=== PATIENT | female | born 1990 | race Caucasian/White ===

== ENCOUNTER 2024-04-07 12:50 | Emergency (ER) | payer OTHER, SELFPAY ==
[2024-04-07] VITALS (12 sets, daily range): BP systolic 120–141; BP diastolic 81–82; PULSE 82–98; TEMP 36.9; O2SAT 99–100; BMI 31.6
--- NOTE | 2024-04-07 13:03 | ED_ITS ---
HPI - Chest Pain General Chief Complaint: Chest Pain Stated Complaint: CHEST PAIN SINCE TUESDAY, L ARM PAIN Time Seen by Provider: 04/07/24 12:58 History of Present Illness HPI narrative: 34-year-old female presents for chest pain. She has had this for the past 3 days. It goes into her left arm which has been continuous and the pain in the extreme left upper chest area has been intermittent. No injury or unusual activity. She states she has been under a lot of stress recently. No fever or cough. It feels like a pressure. Review of Systems ROS Narrative A ten point review of systems is negative except as noted above. PFSH PFSH Social History Little interest or pleasure in doing things: not at all Feeling down, depressed, or hopeless: not at all Exam Narrative Exam Narrative: Nurses note and vital signs reviewed and patient is not hypoxic. General: The patient appears well and in no apparent distress. Patient is resting comfortably on cart. Skin: Warm, dry, no pallor noted. There is no rash noted. Head: Normocephalic, atraumatic Eye: Normal conjunctiva, no drainage Ears, Nose, Mouth, and Throat: oral mucosa is moist. Nares patent. Cardiovascular: Regular Rate and Rhythm Respiratory: Patient is in no distress, no accessory muscle use, lungs are clear to auscultation, no wheezing, rales or rhonchi. No bruise or rash on her chest Back: non-tender GI: Soft and nontender Musculoskeletal: The patient has no evidence of calf tenderness, no pitting edema, symmetrical pulses noted bilaterally Neurological: A&O, normal speech Psychiatric: Cooperative Constitutional Vital Signs, click to edit/add: Last Vital Signs Temp 98.4 F 04/07/24 12:53 Pulse 90 04/07/24 12:53 Resp 18 04/07/24 12:53 BP 141/82 04/07/24 12:53 Pulse Ox 99 04/07/24 12:53 O2 Del Method Room Air 04/07/24 12:53 Course Vital Signs Vital signs: Vital Signs Temperature 98.4 F 04/07/24 12:53 Pulse Rate 90 04/07/24 12:53 Respiratory Rate 18 04/07/24 12:53 Blood Pressure 141/82 04/07/24 12:53 Pulse Oximetry 99 04/07/24 12:53 Oxygen Delivery Method Room Air 04/07/24 12:53 Temperature 98.4 F 04/07/24 12:53 Pulse Rate 90 04/07/24 12:53 Respiratory Rate 18 04/07/24 12:53 Blood Pressure 141/82 04/07/24 12:53 Pulse Oximetry 99 04/07/24 12:53 Oxygen Delivery Method Room Air 04/07/24 12:53 MDM - Chest Pain MDM Narrative Medical decision making narrative: Her workup is negative. I do not at this point suspect acute coronary syndrome. I have no clinical suspicion of pulmonary embolism. The possibility that this is due to stress was discussed with the patient and she is able to be discharged home. Treatment diagnosis and follow-up were discussed thoroughly. Differential Diagnosis Differential diagnosis: Likely pneumothorax, unstable angina pectoris, atypical chest pain, st elevation myocardial infarction and chest pain Lab Data Attestation: I reviewed the patient's lab results. Labs: Lab Results 04/07/24 Range/Units 13:08 WBC 10.5 (4.0-11.0) 10^3/uL RBC 4.93 (4.20-5.40) 10^6/uL Hgb 14.7 (12.0-16.0) g/dL Hct 44.4 (36.0-48.0) % MCV 90.1 (81.0-99.0) fL MCH 29.8 (26.7-34.0) pg MCHC 33.1 (29.9-35.2) g/dL RDW 11.9 (11.0-15.0) % Plt Count 313 (150-450) 10^3/uL MPV 9.1 L (9.5-13.5) fL Neut % (Auto) 74.6 (43.0-75.0) % Lymph % (Auto) 16.5 L (20.5-60.0) % [place] % (Auto) 8.0 (1.7-12.0) % Eos % (Auto) 0.2 L (0.9-7.0) % Baso % (Auto) 0.5 (0.2-2.0) % Neut # (Auto) 7.9 H (1.4-6.5) 10^3/uL Lymph # (Auto) 1.7 (1.2-3.8) 10^3/uL [place] # (Auto) 0.8 (0.3-0.8) 10^3/uL Eos # (Auto) 0.0 (0.0-0.7) 10^3/uL Baso # (Auto) 0.1 (0.0-0.1) 10^3/uL Abs Immat Gran (auto) 0.02 (0.00-0.03) 10^3/uL Imm/Tot Granulo (auto) 0.2 (0.0-0.5) % Sodium 140 (136-145) mmol/L Potassium 3.9 (3.5-5.1) mmol/L Chloride 104 (98-107) mmol/L Carbon Dioxide 24.8 (21.0-32.0) mmol/L Anion Gap 15.1 BUN 10.0 (7.0-18.0) mg/dL Creatinine 0.87 (0.55-1.02) mg/dL Est GFR ( Amer) >60 (>=60 mL/min/1.73m^2) Est GFR (Non-Af Amer) >60 (>=60 mL/min/1.73m^2) BUN/Creatinine Ratio 11.5 Glucose 99 (74-106) mg/dL Calcium 9.6 (8.5-10.1) mg/dL Troponin I High Sens <4.0 L (4.0-51.3) pg/mL Imaging Data Chest x-ray: Radiologist's impression: ITS Impressions Chest X-Ray 04/07/24 13:03 IMPRESSION: Unremarkable AP erect portable chest radiograph. Electronically authenticated by: MARCELA SHINE Date: 04/07/2024 14:12 ECG Data Attestation: I personally reviewed and interpreted this ECG as follows: (EKG on my interpretation shows normal sinus rhythm with rate of 87) Heart Score History: Slightly/Non-Suspicious ECG: Normal Age: <45 years Risk Factors: No Risk Factors Troponin: <Normal Limit Total Heart Score Recommendations & Risks:: 0 Discharge Plan Discharge Chief Complaint: Chest Pain Clinical Impression: Chest pain Patient Disposition: Home, Self-Care Time of Disposition Decision: 14:20 Condition: Good Mode of Transportation: Private Vehicle Print Language: Divehi Instructions: Chest Pain (ED) Referrals: BAKARI ESCALERA [Primary Care Provider] - 1 week
--- NOTE | 2024-04-07 13:03 | XR_ITS ---
The [address] [address] Patient Name: VINICIUS CHARLES MRN: [id number] date: 1990 Sex: F Assigned Patient Location: ER Current Patient Location: ED.MAIN Accession/Order Number: [id number] Exam Date: 04/07/2024 13:15 Report Date: 04/07/2024 14:12 At the request of: JEANNINE GARCIA Procedure: XR chest 1V EXAM: XR chest 1V HISTORY: CP COMPARISON: None. TECHNIQUE: AP erect portable chest radiograph performed. FINDINGS: The trachea is midline. The heart size is normal. The cardiomediastinal silhouette and hilar shadows are normal. There is no consolidation, pleural effusion or pulmonary vascular congestion. There is no pneumothorax and the osseous structures are unremarkable. XR/XR chest 1V IMPRESSION: Unremarkable AP erect portable chest radiograph. Electronically authenticated by: MARCELA SHINE Date: 04/07/2024 14:12
--- NOTE | 2024-04-07 13:03 | ECG_ITS ---
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
[2024-04-07 13:24] LABS: Basophils Absolute Auto 0.1 10^3/uL (0.0-0.1); Basophils Percent Auto 0.5 % (0.2-2.0); Eosinophils Percent Auto 0.2 % (0.9-7.0); Hematocrit 44.4 % (36.0-48.0); Hemoglobin 14.7 g/dL (12.0-16.0); Immature Granulocytes Abs Auto 0.02 10^3/uL (0.00-0.03); Immature Granulocytes Pct Auto 0.2 % (0.0-0.5); Lymphocytes Absolute Auto 1.7 10^3/uL (1.2-3.8); Lymphocytes Percent Auto 16.5 % (20.5-60.0); Mean Corpuscular HGB Conc 33.1 g/dL (29.9-35.2); Mean Corpuscular Hemoglobin 29.8 pg (26.7-34.0); Mean Corpuscular Volume 90.1 fL (81.0-99.0); Mean Platelet Volume 9.1 fL (9.5-13.5); Monocytes Absolute Auto 0.8 10^3/uL (0.3-0.8); Neutrophils Absolute Auto 7.9 10^3/uL (1.4-6.5); Neutrophils Percent Auto 74.6 % (43.0-75.0); Platelet Count 313 10^3/uL (150-450); Red Blood Count 4.93 10^6/uL (4.20-5.40); Red Cell Distribution Width 11.9 % (11.0-15.0); White Blood Count 10.5 10^3/uL (4.0-11.0)
[2024-04-07 13:43] LABS: Anion Gap 15.1; BUN Creatinine Ratio 11.5; Calcium 9.6 mg/dL (8.5-10.1); Carbon Dioxide 24.8 mmol/L (21.0-32.0); Chloride 104 mmol/L (98-107); Estimated GFR (African America >60 (>=60 mL/min/1.73m^2); Estimated GFR (Non-African Ame >60 (>=60 mL/min/1.73m^2); Glucose 99 mg/dL (74-106); Potassium 3.9 mmol/L (3.5-5.1); Sodium 140 mmol/L (136-145); Troponin I High Sensitivity <4.0 pg/mL (4.0-51.3)
== END 2024-04-07 14:38 | disposition home or self-care (01) ==
PROVIDERS: Emergency Provider Emergency Medicine; PCP Family Medicine
DX: R07.9 Chest pain, unspecified (principal)
CPT/HCPCS: 36415; 71045; 80048; 84484; 85025; 93005; 99285

== ENCOUNTER 2024-07-07 11:01 | Emergency (ER) | payer OTHER, SELFPAY ==
[2024-07-07 11:05] VITALS: BP 135/82; PULSE 85; TEMP 36.5; O2SAT 98; BMI 31.6
--- OUTSIDE RECORDS SUMMARY | 2024-07-07 11:07 | XMS_ITS | CCD ---
Author Organization [facility] Care Team Providers Care Pantry Worker Name Role Phone Kelsi Harry Unavailable Unavailable OBGYN IVF RDMS [id number] 1, MG OBGYN Unavailable Unavailable Shaila Conley Unavailable Unavailable Bakari Escalera Unavailable Unavailable Piero COIL CONNECTOR-COIN COLLECTORKelsi Unavailable Unavailab rohit Ocampo MD, Marie Unavailable Unavailable Claire BRODERICK, Shaila Unavailable Unavailable Bakari Escalera Unavailable Unavailable Bakari Escalera Unavailable Unavailable Unavailable Unavailable Bakari Escalera Unavailable Unavailable Unavailable Unavailable Unavailable DO Bakari Escalera Primary Care Provider DO Bakari Escalera Attending Provider Mayuri David Unavailable Bakari Escalera Unavailable Ariel Calderon Attending Unavailable Ariel Calderon Referring Unavailable Dr. Bakari Escalera Primary Care UnavailDR KACY Suárez Primary Care Unavailable DIAB ., ILDA Attending Unavailable DIAB ., ILDA Consulting Unavailable DIAB ., ILDA Admitting Unavailable VIC PAULINO Attending Unavailable VIC PAULINO Admitting Unavailable DR BAKARI ESCALERA Primary Care Unavailable MICHELE WALKER Consulting UnavailVIC Lawson Consulting Unavailable DO Bakari Escalera Primary Care Provider [phone] DO Bakari Escalera Attending Provider [phone] Lawrence Su Unavailable Bakari Escalera DO Primary Care Provider [phone] MARVIN HAQUE Attending Unavailable BAKARI ESCALERA Primary Care Unavailable MARVIN HAQUE Attending Unavailable BAKARI ESCALERA Primary Care Unavailable DO Bakari Escalera Primary Care Provider DO Yang Garcia Attending Provider DO Bakari Escalera Primary Care Provider DO Bakari Escalera Attending Provider [phone] Bakari Escalera MD Primary Care Provider Bakari Escalera DO Primary Care Provider [phone] MARVIN HAQUE Attending Unavailable BAKARI ESCALERA Primary Care Unavailable MARVIN HAQUE Attending Unavailable BAKARI ESCALERA Primary Care Unavailable ARIEL CALDERON Attending Unavailable BAKARI ESCALERA Primary Care Unavailable Bakari Escalera DO Primary Care Provider ARIEL CALDERON Referring Unavailable BAKARI ESCALERA Primary Care Unavailable Bakari Escalera DO Primary Care Provider Bakari Escalera DO Attending Provider [phone] INGA JOSUE Attending Unavailable RIDDHI VILLAR Referring Unavailable RIDDHI VILLAR Attending Unavailable RIDDHI VILLAR Attending Unavailable BRISA RIDDHI E Referring Unavailable INGA JOSUE Attending Unavailable ANJUM SANCHEZ Attending Unavailable Bakari Escalera MD Primary Care Provider Bakari Escalera Primary Care Unavailable Brisa, Riddhi Attending Unavailable Brisa, Riddhi Admitting Unavailable Bakari Escalera Admitting Unavailable Bakari Escalera Attending Unavailable Bakari Escalera Primary Care Unavailable Bakari Escalera Admitting Unavailable Bakari Escalera Attending Unavailable Bakari Escalera Primary Care Unavailable Bakari Escalera Primary Care Unavailable Brisa, Riddhi Attending Unavailable Rinsree, Riddhi Admitting Unavailable Riddhi Villar DO Attending Provider Allergies Allergy Classification Reported Allergen(s) Allergy Type Date of Onset Reaction(s) Facility Amoxicillin / Clavulanate (9 sources) Amoxicillin / Clavulanate; Translations: [Augmentin] Drug Allergy CY-[id number]-[id number] n 310 IVF Work Phone: Doxycycline (9 sources) Doxycycline; Translations: [doxycycline] Drug Allergy NW-HYMKY-Xnngu n 310 IVF Work Phone: Penicillins (antibiotic) (9 sources) Amoxicillin; Translations: [amoxicillin] Drug Allergy OW-DFYPF-Opquo n 310 IVF Work Phone: Sulfamethoxazole / Trimethoprim (9 sources) Sulfamethoxazole / Trimethoprim; Translations: [Bactrim] Drug Allergy UE-MIMCI-Oeoux n 310 IVF Work Phone: Sulfonamides (antibiotic) (9 sources) Sulfonamides (Antibiotic); Translations: [Sulfonamide Derivatives] Drug Allergy VO-LFWLM-Zvfdm n 310 IVF Work Phone: (20 sources) Amoxicillin; Translations: [amoxicillin] Drug Allergy 022 rash, Unknown [facility] (20 sources) Amoxicillin / Clavulanate; Translations: [Augmentin] Drug Allergy Hives YT-BGPRL-Ibgft n 310 IVF Work Phone: (20 sources) Doxycycline; Translations: [doxycycline] Drug Allergy 016 Unknown, [facility] (20 sources) Sulfamethoxazole / Trimethoprim; Translations: [Bactrim] Drug Allergy PQ-KRGZZ-Rpnrq n 310 IVF Work Phone: (20 sources) Sulfonamides (Antibiotic); Translations: [Sulfonamide Derivatives] Allergy to drug (finding) HO-BGCYL-Ncvcc n 310 IVF Work Phone: (20 sources) Azithromycin; Translations: [Zithromax] Drug Allergy 017 rash, Hives [facility] [place] [facility] DO Work Phone: (10 sources) Cefaclor; Translations: [Ceclor CAPS] Drug Allergy Hives [facility] [place] [facility] DO Work Phone: (10 sources) cefdinir; Translations: [Omnicef CAPS] Drug Allergy Hives [facility] [place] [facility] DO Work Phone: (16 sources) Ibuprofen / Pseudoephedrine; Translations: [Advil Cold & Sinus Liqui-Gels CAPS] [facility] Work Phone: (10 sources) Sulfonamides (Antibiotic); Translations: [Sulfa Drugs] Allergy to drug (finding) Hives [facility] [place] [facility] DO Work Phone: (16 sources) Azithromycin; Translations: [Azithromycin] Drug Allergy [facility] (20 sources) cefdinir; Translations: [CEFDINIR] Drug Allergy Hives, [facility] (20 sources) Ibuprofen; Translations: [IBUPROFEN] Drug Allergy [facility] (13 sources) Penicillins; Translations: [Penicillins] Propensity to adverse reactions [facility] (12 sources) Sulfamethoxazole; Translations: [sulfamethoxazole] Drug Allergy [facility] (20 sources) Trimethoprim; Translations: [trimethoprim] Drug Allergy [facility] (9 sources) cefdinir; Translations: [Omnicef] Drug Allergy rash [facility] Repository (8 sources) Cefuroxime Drug Allergy rash [facility] [employer] Other (20 sources) Erythromycin; Translations: [ERYTHROMYCIN] Drug Allergy rash [facility] [employer] Other (20 sources) Fluconazole; Translations: [FLUCONAZOLE] Drug Allergy Other [facility] [employer] Other (8 sources) Penicillin V Drug Allergy rash / Dr. Rodrigez (2017) pt can take PCN and not Cephalosporins [facility] [employer] Other (15 sources) Sulfacetamide Drug Allergy 024 [facility] (1 source) Azithromycin Drug Allergy [facility] Repository (1 source) Ibuprofen Drug Allergy [facility] Repository (1 source) Sulfonamides (Antibiotic) Drug allergy (disorder) [facility] Repository (20 sources) Amoxicillin / Clavulanate; Translations: [AMOXICILLIN-POT CLAVULANATE] Drug Allergy 023 [facility] Work Phone: (20 sources) Cefaclor; Translations: [CEFACLOR] Drug Allergy 023 [facility] Work Phone: (20 sources) Sulfamethoxazole / Trimethoprim; Translations: [SULFAMETHOXAZOLE- TRIMETHOPRIM] Drug Allergy 023 [facility] Work Phone: (20 sources) Sulfonamides (Antibiotic); Translations: [SULFA (SULFONAMIDE ANTIBIOTICS)] Drug Allergy 017 [facility] Work Phone: (8 sources) cefprozil; Translations: [CEFPROZIL] Drug Allergy [facility] Work Phone: (20 sources) Dextromethorphan; Translations: [DEXTROMETHORPHAN HBR] Drug Allergy 023 [facility] Work Phone: (8 sources) guaiFENesin; Translations: [GUAIFENESIN] Drug Allergy 023 [facility] Work Phone: (8 sources) Penicillin; Translations: [PENICILLIN] Drug Allergy 017 [facility] Work Phone: (20 sources) Penicillin G; Translations: [PENICILLIN G] Drug Allergy [facility] Work Phone: (20 sources) Pseudoephedrine; Translations: [PSEUDOEPHEDRINE] Drug Allergy [facility] Work Phone: (20 sources) Tetracycline; Translations: [TETRACYCLINE] Drug Allergy 023 [facility] Work Phone: (14 sources) PSEUDOEPHEDRINE-IB UPROFEN; Translations: [PSEUDOEPHEDRINE-I BUPROFEN] Propensity to adverse reactions to drug (disorder) [facility] Repository (8 sources) Cefuroxime; Translations: [cefuroxime] Drug Allergy [facility] (19 sources) erythromycin base; Translations: [erythromycin base] Allergy to substance [facility] (16 sources) Cefprozil Allergy to substance [facility] (16 sources) Fluconazole Allergy to substance 017 [facility] (16 sources) guaiFENesin Drug Allergy [facility] (1 source) Fluconazole Drug Allergy [facility] Repository (1 source) Sulfacetamide Drug Allergy [facility] Repository Medications Current Medications Medication Drug Class(es) Dates Sig (Normalized) Sig (Original) 12 hr buPROPion hydrochloride 100 mg extended release oral tablet (20 sources) Aminoketone Start: 12-24-2022 End: 12-24-2023 take 1 tablet by mouth three times daily buPROPion (Wellbutrin) 75 mg tablet Indications: Moderate episode of recurrent major depressive disorder (CMS/HCC) Take 1 tablet (75 mg) by mouth 3 times a day. 90 tablet 11 12/24/2022 05/04/2023 Discontinued () Start: 12-14-2022 End: 12-14-2023 take 1 tablet by mouth twice daily buPROPion SR (Wellbutrin SR) 100 mg 12 hr tablet Indications: Moderate episode of recurrent major depressive disorder take 1 tablet by mouth twice a day (DON'T CRUSH) 30 tablet 12/30/2022 Active Start: 12-14-2022 End: 12-14-2023 take 1 tablet by mouth twice daily buPROPion (Wellbutrin) 75 mg tablet Indications: Moderate episode of recurrent major depressive disorder (CMS/HCC) take 1 tablet by mouth twice a day 30 tablet 0 12/30/2022 05/04/2023 Discontinued () Start: 09-28-2022 End: 10-20-2023 buPROPion XL (Wellbutrin XL) 150 MG 24 hr tablet 09/28/2022 10/20/2023 Discontinued Start: 08-13-2020 End: 06-27-2023 take 1 tablet by mouth once daily in the morning Bupropion Hcl (Wellbutrin Xl) 150 mg Tablet Extended Release 24 Hr Discontinued 150 MG PO Every morning June 19, 2021 12:00am June 27, 2023 2:59pm take 1 tablet by bettina th every twelve hours Wellbutrin SR 150 MG Oral Tablet Extended Release 12 Hour Quantity: 0 Refills: 0 Ordered: 06-Jun-2020 DO Active FLUoxetine 10 mg oral capsule (12 sources) Serotonin Reuptake Inhibitor Start: 04-05-2024 End: 07-06-2024 FLUoxetine (PROzac) 10 MG capsule 10 mg 04/05/2024 07/06/2024 Discontinued (Therapy completed) Start: 11-30-2019 End: 04-13-2024 PROzac 20 MG Oral Capsule Re fills: 0 Start : 30-Nov-2019 Active fluticasone propionate 0.05 mg/actuat metered dose nasal spray (20 sources) Corticosteroid Start: 11-23-2023 Fluticasone Pr opionate 50 mcg/actuation spray,suspension Active 2 SPRAY INTRANASAL Daily November 23, 2023 1:45pm F Start: 06-27-2023 End: 11-23-2023 take 2 spray(s) nasal route once daily Fluticasone Propionate 50 mcg/actuation spray,suspension Discontinued 2 SPRAY INTRANASAL Daily June 27, 2023 12:00am November 23, 2023 1:46pm [employer] sprays each nostril Nasally Once a day; Note: Source Status: Refill; Refills: 11; Provider: Nilay Thomas Start: 09-29-2022 End: 07-06-2024 fluticasone (Flonase) 50 MCG /ACT nasal spray 09/29/2022 07/06/2024 Discontinued (Therapy completed) Start: 09-29-2022 End: 12-30-2023 fluticasone (Flonase) 50 mcg/actuation nasal spray 09/29/2022 12/30/2023 Discontinued (Therapy completed) Start: 09-29-2022 take 2 spray(s) nasa l route once daily Fluticasone Propionate 50 MCG/ACT 2 sprays each nostril Nasally Once a day for 30 days Sep, Active Start: 09-29-2022 take 2 spray(s) nasa l route once daily Fluticasone Propionate 50 MCG/ACT 2 sprays each nostril Nasally Once a day for 30 days Sep, Active Homeopathic Products (William Cell Salts) sublingual tablet (1 source) Homeopathic Products (William Cell Salts) sublingual tablet Place under the tongue Active LORazepam 0.5 mg oral tablet (5 sources) Benzodiazepine Start: 04-18-19 take 1 tablet by mouth twice daily as needed for anxiety Lorazepam (Ativan) 0.5 mg tablet Active 0.5 MG PO Twice daily as needed for anxiety 14 April 18, 2024 1:00am Magnesium (1 source) MAGNESIUM PO Fernando e by mouth Active multivitamin tablet (2 sources) take 1 tablet by mouth once daily multivitamin tablet Take 1 tablet by mouth once daily. Active nitrofurantoin, macrocrystals 25 mg / nitrofurantoin, monohydrate 75 mg oral capsule (1 source) Nitrofuran Antibacterial Start: 07-07-19 End: 07-14-19 take 1 capsule by mouth in the morning nitrofurantoin, macrocrystal-monohy drate, (Macrobid) 100 MG capsule Indications: Urinary tract infection without hematuria, site unspecified Take 1 capsule (100 mg) by mouth in the morning and 1 capsule (100 mg) before bedtime. Do all this for 7 days. 14 capsule 07/06/2024 07/13/2024 Active Penicillin (5 sources) Start: 03-25-19 take 1 tablet by mouth three times daily Penicillin VK 500mg 500mg 1 tablet Oral tid for 10 days Mar, Active Start: 01-27-2022 take 1 tablet by bettina th three times daily Penicillin VK 500mg 500mg 1 tab(s) Oral 3 times a day for 10 day(s) Jan, Active penicillin v potassium 500 mg oral tablet (20 sources) Start: 05-04-2024 End: 05-25-2024 take 1 tablet by mouth three times daily Penicillin V Potassium 500 mg tablet Active 500 MG PO Three times daily 10 09May 25, 2024 1:45pm Start: 02-03-2024 End: 04-18-2024 take 1 tablet by mouth three times daily Penicillin V Potassium 500 mg tablet Discontinued 500 MG PO Three times daily 30 February 03, 2024 10:55am April 18, 2024 12:09pm Start: 06-27-2023 End: 11-23-2023 take 1 tablet by mouth three times daily Penicillin V Potassium 500 mg tablet Discontinued 500 MG PO Three times daily 30 June 27, 2023 12:00am November 23, 2023 1:45pm (8 sources) Active Vit-Fe Fumarate-FA ( PO) (1 source) Vit-Fe Fumarate-FA ( PO) Take by mouth Active Progesterone 200 MG supposit ory (3 sources) Start: 06-29-2024 Progesterone 2 00 MG suppository Indications: History of miscarriage, currently , first trimester Insert 1 suppository into the vagina at bedtime 30 suppository 3 06/29/2024 Active Completed/Discontinued Medications Medication Drug Class(es) Dates Sig (Normalized) Sig (Original) alpha-tocopherol acetate 30 unt / ascorbic acid 100 mg / beta carotene 1000 unt / calcium carbonate 200 mg / calcium pantothenate 7 mg / cholecalciferol 400 unt / docusate sodium 25 mg / ferrous fumarate 29 mg / folic acid 1 mg / niacinamide 15 mg / pyridoxine hydrochloride 20 mg / riboflavin 3 mg / thiamine 3 mg / vitamin b12 0.012 mg / zinc oxide 20 mg oral tablet (20 sources) Vitamin B12, Vitamin D, Vitamin C Start: 11-30-2019 End: 12-30-2023 PNV 119-iron fum-folic acid ( 19) 29 mg iron- 1 mg tablet 19 Oral Tablet Refills: 0 Start : 30-Nov-2019 Active 11/30/2019 12/30/2023 Discontinued (Therapy completed) ARGININE HCL, L-ARGININE, ORAL (4 sources) End: 12-30-2023 ARGININE HCL, L-ARGININE, ORAL Take 200 mg by mouth. 12/30/2023 Discontinued (Therapy completed) ARGININE HCL, L- ARGININE, ORAL Take 200 mg by mouth. Active ARGININE HCL, L- ARGININE, ORAL Take 200 mg by mouth. 0 Active BD Disp [place] 27G X 1/2 (1 source) Start: 01-18-2020 BD Disp Needle s 27G X 1/2 USE DIRECTED. Quantity: 1 Refills: 2 Brown COIL CONNECTOR-COIN COLLECTOR, Kelsi Start : 18-Jan-2020 Active BD Disp [place] 27G X 1/2 (1 source) Start: 01-18-2020 BD Disp Needle s 27G X 1/2 USE DIRECTED. Quantity: 1 Refills: 2 Piero QUIROZSHAWANDAKelsi Start : 18-Jan-2020 Active cholecalciferol 0.025 mg ora l tablet (20 sources) Vitamin D Start: 11-30-2019 Vitamin D 25 M CG (1000 UT) Oral Tablet Quantity: 0 Refills: 0 Ordered: 30-Nov-2019 DO Start : 30-Nov-2019 Active Start: 11-17-2017 End: 12-30-2023 take 5 capsules by mouth once daily cholecalciferol (Vitamin D-3) 25 MCG (1000 UT) capsule Take 5 capsules (125 mcg) by mouth once daily. 11/17/2017 12/30/2023 Discontinued (Therapy completed) End: 12-30-2023 cholecalciferol (Vitamin D-3 ) 5,000 Units tablet Take by mouth. 12/30/2023 Discontinued (Therapy completed) chorionic gonadotropin 64608 unt/ml injectable solution (20 sources) Gonadotropin Start: 01-18-2020 inject 60287 [IU] by intramuscular injection once Chorionic Gonadotropin 88458 UNIT Intramuscular Solution Reconstituted USE DIRECTED. Quantity: 1 Refills: 2 Ordered: 21-Jan-2020 Piero MATTKelsi Start : 18-Jan-2020 Active Will need later next week. thanksEunice Landry Start: 12-27-2019 Pregnyl 50343 UNIT Intramuscular Solution Reconstituted Inject 10,000 IU's SQ as directed to be used as HCG Trigger Quantity: 1 Refills: 1 Ordered: 30-Jul-2020 Raffy GUTIERREZViviana Start : 30-Jul-2020 Active clomiPHENE citrate 50 mg oral tablet (4 sources) Estrogen Agonist/Antagonist Start: 09-13-2018 End: 12-30-2023 clomiPHENE (Clomid) 50 mg tablet Take 3 tabs by mouth cycle day 5-9. 09/13/2018 12/30/2023 Discontinued (Therapy completed) ubidecarenone 200 mg oral capsule (20 sources) Start: 11-30-2019 CoQ10 200 MG O ral Capsule Quantity: 0 Refills: 0 Ordered: 30-Nov-2019 DO Start : 30-Nov-2019 Active Start: 11-30-2019 CoQ10 200 MG O ral Capsule Refills: 0 DO Start : 30-Nov-2019 Active End: 12-30-2023 take 6 capsules by mouth once daily coenzyme Q-10 100 mg capsule Take 6 capsules (600 mg) by mouth once daily. 12/30/2023 Discontinued (Therapy completed) Docosahexaenoate (4 sources) Start: 06-15-2019 End: 12-30-2023 take 1 tablet by mouth once daily DOCOSAHEXAENOIC ACID ORAL TAKE 1 TAB & 1 CAPSULE BY MOUTH ONE TIME A DAY DIRECTED 06/15/2019 12/30/2023 Discontinued (Therapy completed) Start: 06-15-2019 take 1 tablet by bettina th once daily DOCOSAHEXAENOIC ACID ORAL TAKE 1 TAB & 1 CAPSULE BY MOUTH ONE TIME A DAY DIRECTED 06/15/2019 Active Start: 06-15-2019 take 1 tablet by bettina th once daily DOCOSAHEXAENOIC ACID ORAL TAKE 1 TAB & 1 CAPSULE BY MOUTH ONE TIME A DAY DIRECTED 0 06/15/2019 Active docusate sodium 100 mg oral capsule (11 sources) Start: 06-22-2021 End: 06-27-2023 take 1 capsule by mouth twice daily as needed for constipation Docusate Sodium (Colace) 100 mg capsule Discontinued 100 MG PO Twice daily as needed for constipation 60 June 22, 2021 10:29am June 27, 2023 2:59pm estradiol 2 mg oral tablet (20 sources) Estrogen Start: 04-17-2020 apply 2 doses transdermal route two times weekly Estradiol 0.1 MG/24HR Transdermal Patch Twice Weekly PLACE 2 PATCH Other Quantity: 1 Refills: 0 Ordered: 17-Apr-2020 Marie Ocampo MD Start : 17-Apr-[address] 2 patches at same ; change twice weekly Start: 02-15-2019 End: 06-22-2021 take 1 tablet by mouth twice daily Estradiol 2 mg Tablet Discontinued 2 MG PO Twice daily February 15, 2019 1:00am June 22, 2021 10:30am NOT PO....INSERT PILL VAGINALLY famotidine 20 mg oral tablet (4 sources) Histamine-2 Receptor Antagonist Start: 06-25-2022 End: 12-30-2023 take 1 tablet by mouth twice daily famotidine (Pepcid) 20 mg tablet Take 1 tablet (20 mg) by mouth 2 times a day. 06/25/2022 12/30/2023 Discontinued (Therapy completed) fludrocortisone acetate 0.1 mg oral tablet (20 sources) Start: 11-30-2019 Fludrocortisone Acetate 0.1 MG Oral Tablet Quantity: 0 Refills: 0 Ordered: 30-Nov-2019 DO Start : 30-Nov-2019 Active Start: 06-26-2017 End: 12-30-2023 take 1 tablet by mouth twice daily Fludrocortisone 0.1 mg tablet Discontinued 0.1 MG PO Twice daily June 26, 2017 12:00am June 27, 2023 3:00pm folic acid 0.8 mg oral table t (20 sources) Start: 11-30-2019 Folic Acid 800 MCG Oral Tablet Quantity: 0 Refills: 0 Ordered: 30-Nov-2019 DO Start : 30-Nov-2019 Active Start: 07-20-2019 End: 12-30-2023 take 1 tablet by mouth once daily folic acid (Folvite) 800 mcg tablet Take 1 tablet (800 mcg) by mouth once daily. 07/20/2019 12/30/2023 Discontinued (Therapy completed) 0.72 ml follitropin beta 833 unt/ml cartridge (20 sources) Start: 07-30-2020 Follistim AQ 6 00 UNT/0.72ML Subcutaneous Solution Inject 375 IU's SQ daily as directed Quantity: 2 Refills: 2 Ordered: 30-Jul-2020 Viviana Becker Start : 30-Jul-2020 Active Start: 12-27-2019 inject 200 [IU] by s ubcutaneous injection once daily Follistim AQ 300 UNT/0.36ML Subcutaneous Solution INJECT 200 UNIT Daily Quantity: 3 Refills: 3 Ordered: 28-Dec-2019 Kelsi Espitia Start : 27-Dec-2019 Active hydrocortisone 10 mg/ml / neomycin 3.5 mg/ml / polymyxin b 47364 unt/ml otic suspension (8 sources) Aminoglycoside Antibacterial, Polymyxin-class Antibacterial, Corticosteroid Start: 01-27-2022 End: 12-30-2023 tdxddfim-aknqbwigu-TD (Cortisporin) 3.5-10,000-1 mg/mL-unit/mL-% otic suspension INSTILL 3 DROPS INTO RIGHT EAR THREE TIMES A DAY FOR 7 DAYS 01/27/2022 12/30/2023 Discontinued (Therapy completed) Start: 01-27-2022 Neomycin-Polym yxin-HC 3.5-26945-3 3 drops right ear Three times a day for 7 days Jan, Active ibuprofen 600 mg oral tablet (11 sources) Nonsteroidal Anti-inflammatory Drug Start: 06-22-2021 End: 06-27-2023 take 1 tablet by mouth every six hours as needed for pain Ibuprofen 600 mg tablet Discontinued 600 MG PO Q6H as needed for pain June 22, 2021 12:00am June 27, 2023 3:00pm Lactobacillus acidophilus (5 sources) End: 12-30-2023 take 1 capsule by mouth once daily Lactobacillus acidophilus (PROBIOTIC ORAL) Take 1 capsule by mouth once daily. 12/30/2023 Discontinued (Therapy completed) take 1 capsule by mouth once alycia ly Lactobacillus acidophilus (PROBIOTIC ORAL) Take 1 capsule by mouth once daily. Active take 1 capsule by mouth once alycia ly Lactobacillus acidophilus (PROBIOTIC ORAL) Take 1 capsule by mouth once daily. 0 Active leuprolide acetate 5 mg/ml injectable solution (18 sources) Gonadotropin Releasing Hormone Receptor Agonist Start: 07-30-2020 Leuprolide Acetate 1 MG/0.2ML Injection Kit Draw up 0.5 ml of Leuprolide and inject into the bacteriostatic NaCl as directed per provider for Microdose Lupron Quantity: 1 Refills: 1 Ordered: 30-Jul-2020 Raffy GUTIERREZViviana Start : 30-Jul-2020 Active loratadine 10 mg oral tablet (20 sources) Start: 11-30-2019 Claritin 10 MG Oral Tablet Quantity: 0 Refills: 0 Ordered: 30-Nov-2019 DO Start : 30-Nov-2019 Active Start: 06-26-2017 End: 12-30-2023 take 1 tablet by mouth once daily Loratadine (Claritin) 10 mg Tablet Discontinued 10 MG PO Daily June 26, 2017 12:00am June 27, 2023 3:00pm magnesium oxide 400 mg oral tablet (8 sources) End: 12-30-2023 take 1 tablet by mouth once daily magnesium oxide (Mag-Ox) 400 mg tablet Take 1 tablet (400 mg) by mouth once daily. 12/30/2023 Discontinued (Therapy completed) 24 hr metFORMIN hydrochloride 750 mg extended release oral tablet (4 sources) Biguanide Start: 08-08-2019 End: 12-30-2023 metFORMIN XR (Glucophage-XR) 750 mg 24 hr tablet 08/08/2019 12/30/2023 Discontinued (Therapy completed) methylPREDNISolone 16 mg oral tablet (4 sources) Corticosteroid Start: 04-26-2018 End: 12-30-2023 take 1 tablet by mouth once daily methylPREDNISolone (Medrol) 16 mg tablet Take 1 tablet (16 mg total) by mouth once daily. 04/26/2018 12/30/2023 Discontinued (Therapy completed) ondansetron 4 mg disintegrating oral tablet (15 sources) Serotonin-3 Receptor Antagonist Start: 06-25-2022 End: 12-30-2023 ondansetron ODT (Zofran-ODT) 4 mg disintegrating tablet dissolve 1 tablet ON TONGUE every 4 hours if needed for nausea OR vomiting 06/25/2022 12/30/2023 Discontinued (Therapy completed) Start: 02-15-2019 End: 06-22-2021 take 1 tablet by mouth every six hours as needed for nausea and vomiting Ondansetron 4 mg tablet,disintegrating Discontinued 4 MG PO Q6H as needed for nausea and vomiting February 15, 2019 1:00am June 22, 2021 10:30am pentoxifylline 400 mg extended release oral tablet (20 sources) Blood Viscosity Embroiderer Hand Start: 12-28-2019 take 1 tablet by mouth twice daily at mealtime Pentoxifylline ER 400 MG Oral Tablet Extended Release TAKE 1 TABLET BY MOUTH TWICE A DAY WITH MEALS Quantity: 60 Refills: 0 Ordered: 17-Mar-2020 Shaila Conley MD Start : 28-Dec-2019 Active Pnv Cmb#[id number]-[id number] Fumarate-Fa () 28 mg iron- 800 mcg Tablet (11 sources) Start: 06-26-2017 End: 04-18-2024 take 1 tablet by mouth once daily Pnv Cmb#95-Ferrous Fumarate-Fa () 28 mg iron- 800 mcg Tablet Discontinued 1 TAB PO Daily June 26, 2017 12:00am April 18, 2024 12:09pm Start: 06-26-2017 End: 04-18-2024 take 1 tablet by mouth once daily Pnv Cmb#95-Ferrous Fumarate-Fa () 28 mg iron- 800 mcg Tablet Discontinued 1 TAB PO Daily June 25, 2017 11:00pm April 18, 2024 11:09am Start: 06-26-2017 take 1 tablet by bettina th once daily Pnv Cmb#95-Ferrous Fumarate-Fa () 28 mg iron- 800 mcg Tablet Active 1 TAB PO Daily June 25, 2017 11:00pm Start: 06-26-2017 take 1 tablet by bettina th once daily Pnv Cmb#95-Ferrous Fumarate-Fa () 28 mg iron- 800 mcg Tablet Active 1 TAB PO Daily June 26, 2017 12:00am prasterone 25 mg oral tablet (20 sources) Start: 11-30-2019 DHEA 25 MG Ora l Tablet Quantity: 0 Refills: 0 Ordered: 30-Nov-2019 DO Start : 30-Nov-2019 Active predniSONE 20 mg oral tablet (14 sources) Start: 04-25-2023 End: 06-27-2023 take 1 tablet by mouth once daily at mealtime Prednisone 20 mg tablet Discontinued 0 PO Daily 18 April 25, 2023 5:30pm June 27, 2023 3:00pm 20 MG 3 a day x3 days, then take 2 a day x3 days and then 1 a day x3 days with food or milk. orally daily; Probiotic CAPS (3 sources) Probiotic CAPS T ALYCE 1 CAPSULE Daily Quantity: 0 Refills: 0 Ordered: 31-Aug-2022 DO Active progesterone 200 mg oral capsule (20 sources) Progesterone Start: 07-16-2019 End: 12-30-2023 take 2 capsules by mouth once daily progesterone (Prometrium) 200 mg capsule Take 2 capsules (400 mg) by mouth once daily. 07/16/2019 12/30/2023 Discontinued (Therapy completed) Start: 02-15-2019 End: 06-22-2021 take 1 capsule by mouth once daily at bedtime Progesterone Micronized 200 mg Capsule Discontinued 400 MG PO Daily at bedtime February 15, 2019 1:00am June 22, 2021 10:30am Start: 02-15-2019 End: 06-22-2021 inject 1 mL by intramuscular injection every other day Progesterone 50 mg/mL Oil Discontinued 2 ML IM As Directed February 15, 2019 1:00am June 22, 2021 10:30am EVERY OTHER DAY Start: 02-15-2019 End: 06-22-2021 Progesterone Micronized (Endometrin) 100 mg Insert Discontinued 100 MG VAGINAL Three times daily February 15, 2019 1:00am June 22, 2021 10:30am Start: 02-15-2019 End: 06-22-2021 take 400 mg by mouth once daily at bedtime Progesterone Micronized Discontinued 400 MG PO Daily at bedtime February 15, 2019 1:00am June 22, 2021 10:30am sertraline 25 mg oral tablet (20 sources) Serotonin Reuptake Inhibitor Start: 01-30-2024 End: 04-18-2024 take 0.5 tablet by mouth once daily, then take 1 tablet by mouth once daily Sertraline (Zoloft) 25 mg tablet Discontinued 0 PO Daily January 30, 2024 12:50pm April 18, 2024 12:10pm take 1/2 of a 25 MG tablet orally daily; Start: 11-30-2023 End: 01-30-2024 take 1 tablet by mouth once daily Sertraline (Zoloft) 25 mg tablet Discontinued 25 MG PO Daily November 30, 2023 3:11pm January 30, 2024 12:51pm Start: 06-27-2023 End: 06-27-2023 Sertraline (Zoloft) 100 mg t ablet Discontinued 50 MG PO Daily June 27, 2023 2:59pm June 27, 2023 3:04pm Start: 06-27-2023 End: 11-30-2023 take 1 tablet by mouth once daily Sertraline (Zoloft) 50 mg tablet Discontinued 50 MG PO Daily November 23, 2023 1:45pm November 30, 2023 11:20am Start: 07-15-2022 End: 07-06-2024 sertraline (Zoloft) 50 MG ta blet 75 mg. 07/15/2022 07/06/2024 Discontinued (Therapy completed) Start: 01-26-2022 End: 01-13-2023 take 1 tablet by mouth once daily sertraline (Zoloft) 25 mg tablet Indications: ADEN (generalized anxiety disorder) take 1 tablet by mouth once daily 30 tablet 0 01/12/2023 Active Start: 06-19-2021 End: 03-15-2024 take 1 tablet by mouth once daily Sertraline (Zoloft) 100 mg Tablet Discontinued 100 MG PO Daily June 19, 2021 12:00am June 27, 2023 3:03pm Start: 08-12-2020 End: 05-03-2024 take 1.5 tablets by mouth once daily in the morning, then take 5 tablets by mouth every month sertraline (Zoloft) 50 mg tablet Indications: ADEN (generalized anxiety disorder) Take 1.5 tablets (75 mg) by mouth once daily in the morning. And 5 extra tab per month during luteal phase 135 tablet 05/04/2023 12/30/2023 Discontinued (Dose adjustment) Start: 08-12-2020 take 1 tablet by bettina th once daily Sertraline HCl - 50 MG Oral Tablet TAKE 1 TABLET BY MOUTH EVERY DAY Quantity: 90 Refills: 0 Ordered: 22-Jan-2021 Marvin Hancock Start : 12-Aug-2020 Active Start: 08-12-2020 take 0.5 tablet by m outh once daily, then take 1 tablet by mouth once daily Sertraline HCl - 50 MG Oral Tablet TAKE 1/2 TABLET DAILY for 7 days and increase to 1 tablet daily Quantity: 30 Refills: 2 Ordered: 12-Aug-2020 Marvin Hancock Start : 12-Aug-2020 Active sodium chloride 9 mg/ml injectable solution (18 sources) Start: 07-30-2020 Sodium Chlorid e Bacteriostatic 0.9 % Injection Solution After adding 0.5 ml of Leuprolide to Bacteriostatic NaCl vial using an insulin syringe, draw up 20 units and inject under the skin in the morning and in the evening as directed by the provider for Microdose Lupron. This is now your medication vial and all Leuprolide doses will be withdrawn from this vial Quantity: 1 Refills: 1 Ordered: 30-Jul-2020 Viviana Becker Start : 30-Jul-2020 Active Toradol 30 mg/ml (8 sources) Start: 01-27-2022 Toradol 30 mg/ ml Jan, 30 mg traMADol hydrochloride 50 mg oral tablet (11 sources) Opioid Agonist Start: 06-22-2021 End: 06-27-2023 take 1 tablet by mouth every six hours as needed for pain Tramadol 50 mg tablet Discontinued 50 MG PO Q6H as needed for pain 30 7 June 22, 2021 12:00am May 6th, 2024 3:01pm vitamin e 450 mg oral capsule (20 sources) Start: 12-28-2019 take 1 capsule by mouth once daily Vitamin E 1000 UNIT Oral Capsule TAKE 1 CAPSULE Daily Quantity: 30 Refills: 1 Ordered: 28-Dec-2019 Shaila Conley MD Start : 28-Dec-2019 Active Problems Active Problems Problem Classification Problem Date Documented Date Episodic/Chronic Adjustment disorders (11 sources) Adjustment disorder; Translations: [Adjustment disorder, unspecified] Onset: 02-02-2024 02-02-2024 Chronic Anxiety disorders (20 sources) Mixed anxiety and depressive disorder; Translations: [Anxiety state, unspecified] Onset: 12-12-2022 Chronic Delirium, dementia, and amnestic and other cognitive disorders (6 sources) Postconcussion syndrome; Translations: [Postconcussional syndrome] Chronic Endometriosis (20 sources) Endometriosis (clinical); Translations: [Endometriosis, site unspecified] Onset: 12-12-2022 12-12-2022 Chronic Female infertility (20 sources) Female infertility; Translations: [Infertility, female, of unspecified origin] Onset: 12-12-2022 12-12-2022 Chronic Fever of unknown origin (1 source) Fever, unspecified Episodic Headache; including migraine (20 sources) Migraine; Translations: [Migraine, unspecified, not intractable, without status migrainosus] Onset: 12-09-2022 01-05-2023 Chronic Headache; including migraine (2 sources) Headache disorder; Translations: [Other headache syndrome] 04-13-2024 Episodic Immunizations and screening for infectious disease (20 sources) Patient encounter status; Translations: [Screening examination for venereal disease] 04-05-2024 Episodic Intestinal infection (1 source) Viral intestinal infection, unspecified; Translations: [VIRAL INTESTINAL INFECTION UNSPEC] Onset: 06-24-2022 Episodic Intracranial injury (1 source) Concussion with loss of consciousness of unspecified duration, initial encounter Episodic Malaise and fatigue (1 source) Other fatigue Episodic Menstrual disorders (20 sources) Dysmenorrhea; Translations: [Dysmenorrhea] Onset: 12-12-2022 12-12-2022 Chronic Mood disorders (18 sources) Recurrent major depressive episodes, moderate ; Translations: [Major depressive disorder, recurrent, moderate] Onset: 02-02-2024 12-14-2022 Chronic Mood disorders (2 sources) Mood disorders; Translations: [Depression, unspecified] Onset: 12-12-2022 Neoplasms of unspecified nature or uncertain behavior (2 sources) Neoplasm of skin; Translations: [Neoplasm of unspecified behavior of bone, soft tissue, and skin] 02-24-2024 Episodic Nonmalignant breast conditions (2 sources) Mastodynia; Translations: [Mastodynia] 11-30-2023 Episodic Nonspecific chest pain (4 sources) Chest pain; Translations: [Chest pain, unspecified] Onset: 05-09-2024 05-09-2024 Episodic Nutritional deficiencies (8 sources) Vitamin D deficiency; Translations: [Vitamin D deficiency, unspecified] Chronic Other and unspecified benign neoplasm (2 sources) Melanocytic nevi of other parts of face; Translations: [Benign neoplasm of skin of other and unspecified parts of face] 02-24-2024 Episodic Other and unspecified benign neoplasm (2 sources) Melanocytic nevus of trunk; Translations: [Melanocytic nevi of trunk] 02-24-2024 Episodic Other and unspecified benign neoplasm (2 sources) Melanocytic nevus of upper limb; Translations: [Melanocytic nevi of unspecified upper limb, including shoulder] 02-24-2024 Episodic Other and unspecified benign neoplasm (2 sources) Melanocytic nevus of lower limb; Translations: [Melanocytic nevi of unspecified lower limb, including hip] 02-24-2024 Episodic Other and unspecified benign neoplasm (2 sources) Dermatofibroma; Translations: [Other benign neoplasm of skin, unspecified] 02-24-2024 Episodic Other circulatory disease (1 source) Other specified symptoms and signs involving the circulatory and respiratory systems Episodic Other complications of ; puerperium affecting management of mother (1 source) delivery - delivered; Translations: [Encounter for delivery without indication] 06-20-2021 Episodic Other ear and sense organ disorders (1 source) Unspecified acute noninfective otitis externa, right ear Episodic Other endocrine disorders (8 sources) Hyperinsulinism; Translations: [Other hypoglycemia] Chronic Other female genital disorders (11 sources) Pain in female genitalia on intercourse; Translations: [Unspecified dyspareunia] Onset: 02-02-2024 02-02-2024 Chronic Other hereditary and degenerative nervous system conditions (4 sources) Restless legs; Translations: [Restless legs syndrome] 05-07-2024 Chronic Other hereditary and degenerative nervous system conditions (4 sources) Restless legs syndrome; Translations: [Restless legs syndrome (RLS)] 05-07-2024 Chronic Other hereditary and degenerative nervous system conditions (1 source) Serotonin syndrome; Translations: [Serotonin syndrome] 07-06-2024 Chronic Other lower respiratory disease (4 sources) Dyspnea on exertion; Translations: [Other forms of dyspnea] 05-07-2024 Episodic Other lower respiratory disease (4 sources) Other forms of dyspnea; Translations: [Other respiratory abnormalities] 05-07-2024 Episodic Other nervous system disorders (8 sources) Sensory disorder of smell and/or taste; Translations: [Other disturbances of smell and taste] Episodic Other nutritional; endocrine; and metabolic disorders (15 sources) Obesity; Translations: [Obesity, unspecified] Onset: 12-12-2022 12-12-2022 Chronic Other nutritional; endocrine; and metabolic disorders (14 sources) Body mass index 30+ - obesity; Translations: [Body mass index (BMI) 32.0-32.9, adult] Onset: 12-30-2023 12-30-2023 Chronic Other nutritional; endocrine; and metabolic disorders (2 sources) Body mass index (BMI) 32.0-32.9, adult; Translations: [Body mass index (BMI) 32.0-32.9, adult] Onset: 12-30-2023 Chronic Other nutritional; endocrine; and metabolic disorders (2 sources) Body mass index 25-29 - overweight; Translations: [Body Mass Index 27.0-27.9, adult] Episodic Other nutritional; endocrine; and metabolic disorders (1 source) Overweight; Translations: [Overweight] Episodic Other nutritional; endocrine; and metabolic disorders (1 source) Weight gain; Translations: [Abnormal weight gain] 06-27-2023 Episodic Other and delivery including normal (20 sources) test positive; Translations: [ examination or test, positive result] Onset: 02-02-2024 02-02-2024 Episodic Other skin disorders (2 sources) Lentigo simplex; Translations: [Other melanin hyperpigmentation] 02-24-2024 Episodic Other upper respiratory disease (3 sources) Allergic rhinitis; Translations: [Allergic rhinitis, unspecified] Chronic Other upper respiratory disease (2 sources) Allergic rhinitis, unspecified; Translations: [Allergic rhinitis] Chronic Otitis media and related conditions (1 source) Otitis media, unspecified, right ear Episodic Residual codes; unclassified (4 sources) Insomnia; Translations: [Insomnia, unspecified] 05-07-2024 Episodic Residual codes; unclassified (4 sources) Insomnia, unspecified; Translations: [Insomnia, unspecified] 05-07-2024 Episodic Unclassified (1 source) CONTACT W/AND (SUSP) EXPOS COVID-19; Translations: [CONTACT W/AND (SUSP) EXPOS COVID-19] Onset: 07-27-2021 Unclassified (1 source) OB Reminders Onset: 07-06-2024 07-06-2024 Urinary tract infections (1 source) Urinary tract infectious disease; Translations: [Urinary tract infection, site not specified] 07-06-2024 Episodic Past or Other Problems Problem Classification Problem Date Documented Da te Episodic/Chronic Abdominal pain (20 sources) Abdominal pain; Translations: [Unspecified abdominal pain] Onset: 02-02-2024 02-15-2019 Episodic Conditions associated with dizziness or vertigo (20 sources) Dizziness and giddiness; Translations: [Vertigo of central origin] Onset: 12-09-2022 Episodic Deficiency and other anemia (20 sources) Iron deficiency anemia; Translations: [Iron deficiency anemia, unspecified] Onset: 02-02-2024 02-02-2024 Episodic Genitourinary symptoms and ill-defined conditions (2 sources) Dysuria; Translations: [Dysuria] 10-20-2023 Episodic Headache; including migraine (1 source) Headache; including migraine Hemorrhage during ; abruptio placenta; placenta previa (20 sources) Hemorrhage in early , unspecified; Translations: [First trimester bleeding] Onset: 02-02-2024 06-27-2017 Episodic Lymphadenitis (19 sources) Localized enlarged lymph nodes; Translations: [Cervical lymphadenopathy] Onset: 02-02-2024 Episodic Nausea and vomiting (20 sources) Nausea and vomiting; Translations: [Nausea with vomiting, unspecified] Onset: 07-27-2021 02-15-2019 Episodic Other aftercare (1 source) Other 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 therapy; Translations: [OTH RETIREMENT CURRENT DRUG THERAPY] Onset: 07-27-2021 Episodic Other circulatory disease (20 sources) Low blood pressure; Translations: [Hypotension, unspecified] Onset: 12-12-2022 12-12-2022 Episodic Other circulatory disease (2 sources) Hypotension, unspecified; Translations: [Hypotension, unspecified] Onset: 12-12-2022 Episodic Other complications of ; puerperium affecting management of mother (20 sources) Deliveries by ; Translations: [Encounter for delivery without indication] Onset: 02-02-2024 06-20-2021 Episodic Other connective tissue disease (20 sources) Pelvic floor dysfunction; Translations: [Pelvic muscle wasting] Onset: 12-12-2022 12-12-2022 Episodic Other connective tissue disease (20 sources) Pelvic floor tension; Translations: [Urethral syndrome NOS] Onset: 12-12-2022 12-12-2022 Episodic Other gastrointestinal disorders (4 sources) Diarrhea, unspecified; Translations: [DIARRHEA UNSPECIFIED] Onset: 07-23-2021 Episodic Other lower respiratory disease (20 sources) Cough; Translations: [Cough] Onset: 02-02-2024 06-27-2023 Episodic Other nervous system disorders (16 sources) Impairment of balance; Translations: [Other abnormalities of gait and mobility] Onset: 12-15-2022 12-15-2022 Episodic Other nutritional; endocrine; and metabolic disorders (2 sources) Abnormal weight gain; Translations: [Abnormal weight gain] Onset: 10-28-2023 Episodic Other nutritional; endocrine; and metabolic disorders (17 sources) Weight increased; Translations: [Abnormal weight gain] Onset: 02-02-2024 02-02-2024 Episodic Other screening for suspected conditions (not mental disorders or infectious disease) (20 sources) Possible ; Translations: [ examination or test, unconfirmed] Resolved: 07-30-2020 10-20-2023 Episodic Other upper respiratory infections (20 sources) Acute sinusitis, unspecified; Translations: [Acute sinusitis] Onset: 02-02-2024 Episodic Residual codes; unclassified (14 sources) Never smoked tobacco; Translations: [Other specified health status] Onset: 12-30-2023 12-30-2023 Episodic Residual codes; unclassified (2 sources) Other specified health status; Translations: [Other specified health status] Onset: 12-30-2023 Episodic Residual codes; unclassified (1 source) Family history of other endocrine, nutritional and metabolic diseases; Translations: [Family history of other endocrine, nutritional and metabolic diseases] Onset: 10-28-2023 Episodic Spondylosis; intervertebral disc disorders; other back problems (20 sources) Neck pain; Translations: [Cervicalgia] Onset: 12-09-2022 01-05-2023 Episodic Syncope (20 sources) Syncope; Translations: [Syncope and collapse] Onset: 12-12-2022 Episodic Unclassified (1 source) Patient encounter status; Translations: [Fertility testing] Unclassified (9 sources) Never smoked tobacco; Translations: [Never a smoker] NEGATED: Highlighted row has not occurred!Residual codes; unclassified (20 sources) Disease Episodic Results Test Name Value Interpretation Reference Range Facility Choriogonadotropin.beta subu nit [Units/volume] in Serum or PlasmaOrdered By: Riddhi Vlilar on 07-02-2024 HCG.beta subunit Qn Choriogonadotropin.b eta subunit [Units/volume] in Serum or Plasma [facility] Comment on above: Approximate Approxim ate hCG Gestational Age Range (mIU/ml) (weeks)0.2-1 5-50 1-2 50-500 2-3 100-5,000 3-4 500-10,000 4-5 1,000-50,000 5-6 10,000-100,000 6-8 15,000-200,000 8-12 10,000-100,000 HCG,Quantitativeon 5 HCG,Quantitative 169.46 m[iU]/mL Normal [facility] Comment on above: Result Comment: Appr oximate Approximate hCG Gestational Age Range (mIU/ml) (weeks) 0.2-1 5-50 1-2 50-500 2-3 100-5,000 3-4 500-10,000 4-5 1,000-50,000 5-6 10,000-100,000 6-8 15,000-200,000 8-12 10,000-100,000 PERFORMED BY: [facility] [place] [address] PATHOLOGIST INORGANIC CHEMISTRY PROFESSOR FILIBERTO APPIAH M.D. Performed By: #### H CGQNT #### [facility] [address] [place] [address] [facility] hCG, quantitative, on 07-02-2024 HCG,QUANTITATIVE 169.46 m[iU]/mL [facility] Comment on above: Approximate Approxim ate hCG Gestational Age Range (mIU/ml) (weeks) 0.2-1 5-50 1-2 50-500 2-3 100-5,000 3-4 500-10,000 4-5 1,000-50,000 5-6 10,000-100,000 6-8 15,000-200,000 8-12 10,000-100,000 [facility] Choriogonadotropin.beta subu nit [Units/volume] in Serum or PlasmaOrdered By: Riddhi Villar on 06-29-2024 HCG.beta subunit Qn Choriogonadotropin.b eta subunit [Units/volume] in Serum or Plasma [facility] Comment on above: Approximate Approxim ate hCG Gestational Age Range (mIU/ml) (weeks)0.2-1 5-50 1-2 50-500 2-3 100-5,000 3-4 500-10,000 4-5 1,000-50,000 5-6 10,000-100,000 6-8 15,000-200,000 8-12 10,000-100,000 HCG,Quantitativeon 5 HCG,Quantitative 28.39 m[iU]/mL Normal [facility] Comment on above: Result Comment: Appr oximate Approximate hCG Gestational Age Range (mIU/ml) (weeks) 0.2-1 5-50 1-2 50-500 2-3 100-5,000 3-4 500-10,000 4-5 1,000-50,000 5-6 10,000-100,000 6-8 15,000-200,000 8-12 10,000-100,000 PERFORMED BY: [address] [place] [address] PATHOLOGIST INORGANIC CHEMISTRY PROFESSOR FILIBERTO APPIAH M.D. Performed By: #### F E and TIBC, CMP, PREETI, [id number], B12, CBC, FOL, TSH3 #### [address] [address] [facility] hCG, quantitative, on 06-29-2024 HCG,QUANTITATIVE 28.39 m[iU]/mL [facility] Comment on above: Approximate Approxim ate hCG Gestational Age Range (mIU/ml) (weeks) 0.2-1 5-50 1-2 50-500 2-3 100-5,000 3-4 500-10,000 4-5 1,000-50,000 5-6 10,000-100,000 6-8 15,000-200,000 8-12 10,000-100,000 [facility] BI US BREAST COMPLETE LEFTon 06-14-2024 BI US BREAST COMPLETE LEFT This is a summary report. The complete report is available in the patient's medical record. If you cannot access the medical record, please contact the sending organization for a detailed fax or copy. Examination: BI US BREAST COMPLETE LEFT Reason for Study: follow up Comparison: Left breast ultrasound study dated 12/14/2023. Technique: Complete left breast ultrasound study was performed to include all 4 quadrants. Findings: No obvious solid or cystic mass. No obvious solid vascular mass to suggest neoplasm. No obvious abnormal calcifications or vascularity. No obvious ductal dilatation. Previously noted superficial finding at the 6 o'clock position most likely representing a tiny cyst is no longer identified, assumed to have resolved during the interval. IMPRESSION: Impression: Left breast ultrasound study is grossly unremarkable. No convincing evidence of neoplasm. Previously noted likely tiny cyst at the 6 o'clock position no longer identified, assumed to have resolved during the interval. BI-RADS 2 ELECTRONICALLY SIGNED BY: Timo Villagran M.D. Normal Not Available MR head/brain wo/w con MR head/brain wo/w [facility] [place] [address] [place] [id number] MRI Report Signed Patient: Jessica Valdez MR#: [id number] : 1990 Acct:[id number] Age/Sex: 34 / F ADM Date: 06/06/24 Loc: MR Room: Type: [facility] Attending Dr: Bakari Escalera DO Copies to: Bakari Escalera DO Ordering Provider: Bakari Escalera DO Date of Service: 06/06/24 MR/MR head/brain [...] Layton Samuels M.D.06/06/2024 2:34 PM Dictation Location: [place] [address] Transcribed By: [facility] 06/06/24 1434 Dictated By: Layton Samuels MD 06/06/24 1427 Signed By: 06/06/24 1434 Normal [facility] Magnetic resonance imaging r eportOrdered By: Layton Samuels on 06-06-2024 Study report [place] [address] MRI Report Signed Patient: Jessica Valdez MR#: [id number] : 1990 Acct:[id number] Age/Sex: 34 / F ADM Date: 5 Loc: MR Room: Type: [facility] Attending Dr: Bakari Escalera DO Copies to: Bakari Escalera DO~ Ordering Provider: Bakari Escalera DO Date of Service: 06/06/24 MR/MR head/brain [...] nonspecific foci of T2 prolongation within the whitematter, no evidence of progression. Stable 3 mm cerebellar tonsillar ectopia Impression dictated by: Layton Samuels M.D.06/06/2024 2:34 PM Dictation Location: [place] [address] Transcribed By: ROX 06/06/24 1434 Dictated By: Layton Samuels MD 06/06/24 1427 Signed By: 06/06/24 1434 [facility] Work Phone: STRESS TEST ONLYon 5 STRESS TEST ONLY [address], [address] [place] [address] Exercise Stress Test Patient Name: JESSICA VALDEZ Ordering Provider: [id number] ARIEL CALDERON Study Date: 05/10/2024 Reading Physician: [id number] Ángel Flanagan MD MRN/PID: [id number] Supervising Physician: [id number] Ángel Flanagan MD Fellow: Date of /Age: 1 1990 / 34 years Fellow: Gender: F Nurse: Jackie Jacobs RN Admission Status: Manufacturing Accountant: NA Height: 175.26 cm Technologist: Weight: 99.79 kg Additional Staff: BSA: 2.15 m2 BMI: 32.49 kg/m2 Patient Location: Study Type: STRESS TEST ONLY Diagnosis/ICD: Chest pain, unspecified-R07.9 Indication: Chest Pain CPT Codes: Stress Test Interpretation-57083; Stress Test Supervision-[id number] Falls Risk: Low: Patient has low risk for sustaining a fall; environmental safety interventions in place. Study Details: Correct procedure and correct patient verified verbally. Patient Performance: The peak heart rate achieved was 176 bpm, which was 94 % of the age predicted target heart rate of 187 bpm. The resting blood pressure was 128/78 mmHg with a heart rate of 83 bpm. The standing blood pressure was 124/82 mmHg with a heart rate of 84 bpm. The patient's functional capacity was average. The patient developed dizziness and fatigue during the stress exam. The symptoms resolved with rest. The blood pressure response was normal. The test was terminated due to: fatigue. Double Product (HR x BP): 296. Baseline ECG: Resting ECG showed normal sinus rhythm. Stress Stage Data: + +---+ ------+-------+ HR Sys BP Moran BP + +---+ ------+-------+ Baseline Resting 83 128 78 + +---+ ------+-------+ Baseline Standing 84 124 82 + +---+ ------+-------+ Stage I 142 144 82 + +---+ ------+-------+ Stage II 160 152 76 + +---+ ------+-------+ Stage III 176 168 82 + +---+ ------+-------+ Recovery ECG: The heart rate recovery was normal. + +---+----- -+-------+ HR Sys BP Moran BP + +---+----- -+-------+ Recovery I 171 170 84 + +---+----- -+-------+ Recovery II 162 170 76 + +---+----- -+-------+ Recovery III 126 136 76 + +---+----- -+-------+ Recovery IV 114 128 84 + +---+----- -+-------+ Recovery V 108 + +---+----- -+-------+ Summary: 1. Normal graded exercise stress test without diagnostic ST-T changes for ischemia. 2. No provoked chest pain or arrhythmia. 3. Appropriate hemodynamic response to exercise. 4. Good exercise tolerance. 5. Normal heart rate recovery phase. 6. Patient was able to exercise for 8 minutes achieving workload of 10.1 METS and 94% of maximum predicted heart rate. [id number] Idalmis Flanagan MD Electronically signed on 05/10/2024 at 4:52:25 PM Final [facility] No Panel Informationon 04-13 INFLUENZA A Negative Negative [facility] INFLUENZA B Negative Negative [facility] Interpretation and review of laboratory results Normal [facility] Basophils Auto (Bld) [#/Vol] on 04-07-2024 Basophils (Bld) [#/Vol] Automated basoph il count 0.0-0.1 [facility] Basophils/100 WBC Auto (Bld) on 04-07-2024 Basophils/100 WBC (Bld) Automated basophil % 0. 2-2.0 [facility] Eosinophils/100 WBC Auto (Bl d)on 04-07-2024 Eosinophils/100 WBC (Bld) Automated eosinophil % Low 0.9-7.0 [facility] Erythrocyte distribution wid th Auto (RBC) [Ratio]on 04-07-2024 Erythrocyte distribution width (RBC) [Ratio] Erythrocyte distribution width [Ratio] by Automated count 11.0-15.0 [facility] Estimated glomerular filtrat ion rate (GFR) non- Americanon 04-07-2024 GFR/1.73 sq M.predicted among non-blacks MDRD (S/P/Bld) [Vol rate/Area] Estimated glomerular filtration rate (GFR) non- >=60 mL/min/1.73 m 2 [facility] Hematocrit Auto (Bld) [Volum e fraction]on 04-07-2024 Hematocrit (Bld) [Volume fraction] Hematocrit [Volume Fraction] of Blood by Automated count 36.0-48.0 [facility] Hemoglobin [Mass/volume] in Bloodon 04-07-2024 Hemoglobin (Bld) [Mass/Vol] Hemoglobin [Mass/volume] in Blood 12.0-16.0 [facility] Laboratory - Chemistry and C hemistry - challengeon 04-07-2024 Calcium [Mass/Vol] 9.6 mg/dL 8.5-10.1 [facility] Chloride [Moles/Vol] 104 mmol/L 98-107 [facility] CO2 [Moles/Vol] 24.8 mmol/L 21.0-32.0 [facility] Creatinine [Mass/Vol] 0.87 mg/dL 0.55-1.02 [facility] GFR/1.73 sq M.predicted MDRD (S/P/Bld) [Vol rate/Area] mL/min/{1.73_m2} >=60 mL/min/1.73 m 2 [facility] Glucose [Mass/Vol] 99 mg/dL 74-106 [facility] Potassium [Moles/Vol] 3.9 mmol/L 3.5-5.1 [facility] Sodium [Moles/Vol] 140 mmol/L 136-145 [facility] Urea nitrogen [Mass/Vol] 10.0 mg/dL 7.0-18.0 [facility] Urea nitrogen/Creatinine [Mass ratio] 11.5 mg/mg [facility] Laboratory - Hematology and Cell countson 04-07-2024 Immature granulocytes/100 WBC (Bld) 0.2 % 0.0-0.5 [facility] Leukocytes [#/volume] correc nickolas for nucleated erythrocytes in Blood by Automated counon 04-07-2024 WBC corrected for nucl RBC Auto (Bld) [#/Vol] Leukocytes [#/volume] corrected for nucleated erythrocytes in Blood by Automated coun 4.0-11.0 [facility] Lymphocytes Auto (Bld) [#/Vo l]on 04-07-2024 Lymphocytes (Bld) [#/Vol] Lymphocytes [#/volume] in Blood by Automated count 1.2-3.8 [facility] Lymphocytes/100 WBC Auto (Bl d)on 04-07-2024 Lymphocytes/100 WBC (Bld) Lymphocytes/100 leukocytes in Blood by Automated count Low 20.5-60.0 [facility] MCH Auto (RBC) [Entitic mass ]on 04-07-2024 MCH (RBC) [Entitic mass] MCH [Entitic mass] by Automated count 26.7-34.0 [facility] MCHC Auto (RBC) [Mass/Vol]on 04-07-2024 MCHC (RBC) [Mass/Vol] MCHC [Mass/volume] by Automated count 29.9-35.2 [facility] MCV Auto (RBC) [Entitic vol] on 04-07-2024 MCV (RBC) [Entitic vol] MCV [Entitic vol ume] by Automated count 81.0-99.0 [facility] Monocytes Auto (Bld) [#/Vol] on 04-07-2024 Monocytes (Bld) [#/Vol] Automated blood monocyte count 0.3-0.8 [facility] Monocytes/100 WBC Auto (Bld) on 04-07-2024 Monocytes/100 WBC (Bld) Automated monocyte % 1. 7-12.0 [facility] Neutrophils Auto (Bld) [#/Vo l]on 04-07-2024 Neutrophils (Bld) [#/Vol] Neutrophils [#/volume] in Blood by Automated count High 1.4-6.5 [facility] Neutrophils/100 WBC Auto (Bl d)on 04-07-2024 Neutrophils/100 WBC (Bld) Automated neutrophil % 43.0-75.0 [facility] No Panel Informationon 04-07 Eosinophils # (Auto) 0.0 10 3/uL 0.0-0.7 [facility] Immature Granulocyte # (Auto) 0.02 10 3/uL 0.00-0.03 [facility] Troponin I High Sensitivity <4.0 pg/mL Low 4.0-51.3 [facility] Comment on above: CUT-OFF POINTS HAVE BEEN ESTABLISHED BASED ON THE FOURTHUNIVERSAL DEFINITION OF MYOCARDIAL INFARCTION. THE UPPERREFERENCE LIMIT (URL) OF TROPONIN, DEFINED THE 99THPERCENTILE OF cTnI DISTRIBUTION IN A REFERENCE POPULATION,HAS BEEN CONFIRMED THE DECISION THRESHOLD FOR MIDIAGNOSIS.99TH PERCENTILE = 51.4 PG/MLNOTE: HIGH-SENSITIVITY TROPONIN ASSAY IS NOT INTENDED TO BEUSED IN ISOLATION BUT SHOULD BE INTERPRETED IN CONJUNCTIONWITH OTHER DIAGNOSTIC AND CLINICAL INFORMATION. Platelet mean volume Auto (B ld) [Entitic vol]on 04-07-2024 Platelet mean volume (Bld) [Entitic vol] Platelet mean volume [Entitic volume] in Blood by Automated count Low 9.5-13.5 [facility] Platelets Auto (Bld) [#/Vol] on 04-07-2024 Platelets (Bld) [#/Vol] Platelets [#/vol ume] in Blood by Automated count 150-450 [facility] RBC Auto (Bld) [#/Vol]on RBC (Bld) [#/Vol] Erythrocytes [#/volu me] in Blood by Automated count 4.20-5.40 [facility] Serum or plasma anion gap de terminationon 04-07-2024 Anion gap [Moles/Vol] Serum or plasma an ion gap determination [facility] COVID Cepheidon 04-05-2024 SARS-CoV-2 (COVID-19) RNA GABRIEL+probe Ql (Unsp spec) COVID Cepheid [facility] Laboratory - Microbiology an d Antimicrobial susceptibilityon 04-05-2024 SARS-CoV-2 (COVID-19) RNA GABRIEL+probe Ql (Unsp spec) Negative [facility] No Panel Informationon 04-05 POC Influenza A (PCR) Negative [facility] POC Influenza B (PCR) Negative [facility] No Panel InformationOrdered By: Jeni Whittington on 04-05-2024 Quick Strep (POC) [facility] Quick Strep (POC) [facility] Laboratory - Microbiology an d Antimicrobial susceptibilityon 02-04-2024 S. agalactiae Org specific cx Ql (Vag fld) 0 [facility] S. agalactiae Org specific cx Ql (Vag fld) Not detected [facility] SARS-CoV-2 (COVID-19) RNA GABRIEL+probe Ql (Unsp spec) Negative [facility] SARS-CoV-2 (COVID-19) RNA GABRIEL+probe Ql (Unsp spec) Not detected [facility] No Panel Informationon 02-03 ACINETOBACTER BAUMANNII (RESPIRATORY) 0 [facility] ACINETOBACTER BAUMANNII (RESPIRATORY) Not detected [facility] ADENOVIRUS HADV-B (RESPIRATORY) 0 [facility] ADENOVIRUS HADV-B (RESPIRATORY) Not detected [facility] BORDETELLA PERTUSSIS, PARAPERTUSSIS, BRONCHISEPTICA (RESPIRATORY) 0 [facility] BORDETELLA PERTUSSIS, PARAPERTUSSIS, BRONCHISEPTICA (RESPIRATORY) Not detected [facility] CHLAMYDIA PNEUMONIAE (RESPIRATORY) 0 [facility] CHLAMYDIA PNEUMONIAE (RESPIRATORY) Not detected [facility] ENTEROBACTER CLOACAE COMPLEX, KLEBSIELLA (ENTEROBACTER) AEROGENES (RESPIRAT 0 [facility] ENTEROBACTER CLOACAE COMPLEX, KLEBSIELLA (ENTEROBACTER) AEROGENES (RESPIRAT Not detected [facility] ENTEROVIRUS D68 (RESPIRATORY) 0 [facility] ENTEROVIRUS D68 (RESPIRATORY) Not detected [facility] ESCHERICHIA COLI (RESPIRATORY) 0 [facility] ESCHERICHIA COLI (RESPIRATORY) Not detected [facility] HAEMOPHILUS INFLUENZAE (RESPIRATORY) 0 [facility] HAEMOPHILUS INFLUENZAE (RESPIRATORY) Not detected [facility] HUMAN METAPNEUMOVIRUS (RESPIRATORY) 0 [facility] HUMAN METAPNEUMOVIRUS (RESPIRATORY) Not detected [facility] INFLUENZA VIRUS, A, B (RESPIRATORY) 0 [facility] INFLUENZA VIRUS, A, B (RESPIRATORY) Not detected [facility] Interpretation and review of laboratory results Abnormal [facility] KLEBSIELLA PNEUMONIAE, OXYTOCA (RESPIRATORY) 0 [facility] KLEBSIELLA PNEUMONIAE, OXYTOCA (RESPIRATORY) Not detected [facility] LEGIONELLA PNEUMOPHILA (RESPIRATORY) 0 [facility] LEGIONELLA PNEUMOPHILA (RESPIRATORY) Not detected [facility] MORAXELLA CATARRHALIS (RESPIRATORY) 26.533 Abnormal [facility] MORAXELLA CATARRHALIS (RESPIRATORY) Detected Abnormal [facility] MYCOPLASMA PNEUMONIAE (RESPIRATORY) 0 [facility] MYCOPLASMA PNEUMONIAE (RESPIRATORY) Not detected [facility] OTHER CORONAVIRUSES (229E, NL63, HKU1, OC43) (RESPIRATORY) 0 [facility] OTHER CORONAVIRUSES (229E, NL63, HKU1, OC43) (RESPIRATORY) Not detected [facility] PARAINFLUENZA VIRUS (TYPES 1, 2, 3 ,4) (RESPIRATORY) 0 [facility] PARAINFLUENZA VIRUS (TYPES 1, 2, 3 ,4) (RESPIRATORY) Not detected [facility] PROTEUS MIRABILIS, VULGARIS (RESPIRATORY) 0 [facility] PROTEUS MIRABILIS, VULGARIS (RESPIRATORY) Not detected [facility] PSEUDOMONAS AERUGINOSA (RESPIRATORY) 0 [facility] PSEUDOMONAS AERUGINOSA (RESPIRATORY) Not detected [facility] RESPIRATORY SYNCYTIAL VIRUS (RESPIRATORY) 0 [facility] RESPIRATORY SYNCYTIAL VIRUS (RESPIRATORY) Not detected [facility] RHINOVIRUS/ENTEROVIRUS (RESPIRATORY) 0 [facility] RHINOVIRUS/ENTEROVIRUS (RESPIRATORY) Not detected [facility] SERRATIA MARCESCENS (RESPIRATORY) 0 [facility] SERRATIA MARCESCENS (RESPIRATORY) Not detected [facility] STAPHYLOCOCCUS AUREUS (RESPIRATORY) 0 [facility] STAPHYLOCOCCUS AUREUS (RESPIRATORY) Not detected [facility] STREPTOCOCCUS PNEUMONIAE (RESPIRATORY) 0 [facility] STREPTOCOCCUS PNEUMONIAE (RESPIRATORY) Not detected [facility] STREPTOCOCCUS PYOGENES (GROUP A STREP) (RESPIRATORY) 0 [facility] STREPTOCOCCUS PYOGENES (GROUP A STREP) (RESPIRATORY) Not [facility] an d Antimicrobial susceptibilityon 02-02-2024 SARS-CoV-2 (COVID-19) RNA GABRIEL+probe Ql (Unsp spec) Negative [facility] No Panel Informationon 02-01 FLU A Negative [facility] FLU B Negative [facility] Interpretation and review of laboratory results Normal [facility] BI US BREAST COMPLETE LEFTon 11-30-2023 BI US BREAST COMPLETE LEFT This is a summary report. The complete report is available in the patient's medical record. If you cannot access the medical record, please contact the sending organization for a detailed fax or copy. Examination: BI US BREAST COMPLETE LEFT Reason for Study: breast pain Comparison: None Technique: Complete left breast ultrasound study was performed to include all 4 quadrants, subareolar region as well as the axillary region. Findings: No obvious solid or cystic mass seen in the breast parenchyma. No obvious solid vascular mass to suggest neoplasm. At the 6 o'clock position there is a tiny superficial area of nonvascular decreased echogenicity which appears to be in the deep subdermal region measuring approximately 0.4 x 0.3 x 0.2 cm most likely representing tiny cyst, possibly a sebaceous cyst. Correlate clinically. IMPRESSION: Impression: Left breast ultrasound study fails to convincingly demonstrate evidence of neoplasm. Small superficial area at what appears to be the deep subdermal level at the 6 o'clock position most likely representing a cyst, possibly a sebaceous cyst. Correlate clinically. Follow-up ultrasound study of this area in 6 months is suggested to assess stability. BI-RADS 3 ELECTRONICALLY SIGNED BY: Timo Villagran M.D. Normal Not Available Alanine aminotransferase [En zymatic activity/volume] in Serum or PlasmaOrdered By: Bakari Escalera on 10-28-2023 ALT [Catalytic activity/Vol] 14 U/L Normal 7-52 [facility] Comment on above: Performed By: #### F E and TIBC, CMP, PREETI, [id number], B12, CBC, FOL, TSH3 #### [facility] [address] [place] [address] [place] Albumin [Mass/volume] in Ser um or Plasma by Bromocresol green (BCG) dye binding methoOrdered By: Bakari Escalera on 10-28-2023 Albumin BCG dye [Mass/Vol] 4.3 g/dL 3.5-5.7 [facility] Alkaline phosphatase [Enzyma tic activity/volume] in Serum or PlasmaOrdered By: Bakari Escalera on 10-28-2023 ALP [Catalytic activity/Vol] 55 U/L Normal 34-104 [facility] Comment on above: Performed By: #### F E and TIBC, CMP, PREETI, [id number], B12, CBC, FOL, TSH3 #### [facility] [address] [place] [address] [place] Aspartate aminotransferase [ Enzymatic activity/volume] in Serum or PlasmaOrdered By: Bakari Escalera on 10-28-2023 AST [Catalytic activity/Vol] 15 U/L Normal 13-39 [facility] Comment on above: Performed By: #### F E and TIBC, CMP, PREETI, [id number], B12, CBC, FOL, TSH3 #### [address] Automated basophil %Ordered By: Bakari Escalera on 10-28-2023 Basophils/100 WBC (Bld) 0.7 % Normal . [facility] Comment on above: Performed By: #### F E and TIBC, CMP, PREETI, [id number], B12, CBC, FOL, TSH3 #### [address] Automated basophil countOrde red By: Bakari Escalera on 10-28-2023 Basophils (Bld) [#/Vol] 0.0 10*3/uL Normal 0.0-0.2 [facility] Comment on above: Result Comment: PERF ORMED BY: [place] [address] PATHOLOGIST INORGANIC CHEMISTRY PROFESSOR NAM BOWMAN M.D. Performed By: #### F E and TIBC, CMP, PREETI, [id number], B12, CBC, FOL, TSH3 #### [address] Automated blood monocyte cou ntOrdered By: Bakari Escalera on 10-28-2023 Monocytes (Bld) [#/Vol] 0.5 10*3/uL Normal 0.0-0.8 [facility] Comment on above: Performed By: #### F E and TIBC, CMP, PREETI, [id number], B12, CBC, FOL, TSH3 #### [address] Automated eosinophil %Ordere d By: Bakari Escalera on 10-28-2023 Eosinophils/100 WBC (Bld) 1.7 % Normal . [facility] Comment on above: Performed By: #### F E and TIBC, CMP, PREETI, [id number], B12, CBC, FOL, TSH3 #### [address] Automated eosinophil countOr dered By: Bakari Escalera on 10-28-2023 Eosinophils (Bld) [#/Vol] 0.1 10*3/uL Normal 0.0-0.45 [facility] Comment on above: Performed By: #### F E and TIBC, CMP, PREETI, [id number], B12, CBC, FOL, TSH3 #### [facility] [address] Automated monocyte %Ordered By: Bakari Escalera on 10-28-2023 Monocytes/100 WBC (Bld) 7.9 % Normal . [facility] Comment on above: Performed By: #### F E and TIBC, CMP, PREETI, [id number], B12, CBC, FOL, TSH3 #### [facility] [address] Automated neutrophil %Ordere d By: Bakari Escalera on 10-28-2023 Neutrophils/100 WBC (Bld) 50.0 % Normal . [facility] Comment on above: Performed By: #### F E and TIBC, CMP, PREETI, [id number], B12, CBC, FOL, TSH3 #### [address] Bilirubin.total [Mass/volume ] in Serum or PlasmaOrdered By: Bakari Escalera on 10-28-2023 Bilirubin [Mass/Vol] 0.4 mg/dL Normal 0.3-1.0 [facility] Comment on above: Performed By: #### F E and TIBC, CMP, PREETI, [id number], B12, CBC, FOL, TSH3 #### [address] Calcium [Mass/volume] in Ser um or PlasmaOrdered By: Bakari Escalera on 10-28-2023 Calcium [Mass/Vol] 9.2 mg/dL Normal 8.6-10.3 [facility] Comment on above: Performed By: #### F E and TIBC, CMP, PREETI, [id number], B12, CBC, FOL, TSH3 #### [address] Carbon dioxide, total [Moles /volume] in Serum or PlasmaOrdered By: Bakari Escalera on 10-28-2023 CO2 [Moles/Vol] 29.9 mmol/L Normal 21.0-31.0 [facility] Comment on above: Performed By: #### F E and TIBC, CMP, PREETI, [id number], B12, CBC, FOL, TSH3 #### [address] Chloride [Moles/volume] in S brenda or PlasmaOrdered By: Bakari Escalera on 10-28-2023 Chloride [Moles/Vol] 105 mmol/L Normal 98-107 [facility] Comment on above: Performed By: #### F E and TIBC, CMP, PREETI, [id number], B12, CBC, FOL, TSH3 #### [address] Complete Blood Count Auto Di ffon 10-28-2023 Mean Corpuscular HGB Conc 33.4 g/dL Normal 32.0-35.0 [facility] Comment on above: Performed By: #### F E and TIBC, CMP, PREETI, [id number], B12, CBC, FOL, TSH3 #### [address] NRBC% 0.0 /100{WBC} Normal 0-0.5 [facility] Comment on above: Performed By: #### F E and TIBC, CMP, PREETI, [id number], B12, CBC, FOL, TSH3 #### [address] Comprehensive Metabolic Pane arlene 10-28-2023 Albumin [Mass/Vol] 4.3 g/dL Normal 3.5-5.7 [facility] Comment on above: Performed By: #### F E and TIBC, CMP, PREETI, [id number], B12, CBC, FOL, TSH3 #### [address] GFR/1.73 sq M.predicted MDRD (S/P/Bld) [Vol rate/Area] mL/min/{1.73_m2} Normal [facility] Comment on above: Performed By: #### F E and TIBC, CMP, PREETI, [id number], B12, CBC, FOL, TSH3 #### [address] Creatinine [Mass/volume] in Serum or PlasmaOrdered By: Bakari Escalera on 10-28-2023 Creatinine [Mass/Vol] 0.82 mg/dL Normal 0.60-1.20 [facility] Comment on above: Performed By: #### F E and TIBC, CMP, PREETI, [id number], B12, CBC, FOL, TSH3 #### [address] Erythrocyte distribution wid th [Ratio] by Automated countOrdered By: Bakari Escalera on 10-28-2023 Erythrocyte distribution width (RBC) [Ratio] 12.7 % Normal 11.9-15.3 [facility] Comment on above: Performed By: #### F E and TIBC, CMP, PREETI, [id number], B12, CBC, FOL, TSH3 #### [address] Erythrocytes [#/volume] in B lood by Automated countOrdered By: Bakari Escalera on 10-28-2023 RBC (Bld) [#/Vol] 4.54 10*6/uL Normal 3.60-5.00 [facility] Comment on above: Performed By: #### F E and TIBC, CMP, PREETI, [id number], B12, CBC, FOL, TSH3 #### [address] Ferritin [Mass/volume] in Se rum or PlasmaOrdered By: Bakari Escalera on 10-28-2023 Ferritin [Mass/Vol] 22.5 ng/mL Normal 11.0-306.8 [facility] Comment on above: Performed By: #### F E and TIBC, CMP, PREETI, [id number], B12, CBC, FOL, TSH3 #### [address] Folateon 10-28-2023 Folate 23.3 ng/mL Normal >5.9 [facility] Comment on above: Result Comment: [place]issa te reference range: >5.9 ng/ml The WHO technical consultation on folate and vitamin b12 deficiencies has determined that folate concentrations less than 4 ng/ml are considered deficient. Performed By: #### F E and TIBC, CMP, PREETI, [id number], B12, CBC, FOL, TSH3 #### [facility] [address] Folate [Mass/volume] in Seru m or PlasmaOrdered By: Bakari Escalera on 10-28-2023 Folate [Mass/Vol] 23.3 ng/mL >5.9 [facility] Comment on above: Folate reference ran ge: >5.9 ng/mlThe WHO technical consultation on folate and vitamin [id number] has determined that folate concentrations lessthan 4 ng/ml are considered deficient. Glucose [Mass/volume] in Ser um or PlasmaOrdered By: Bakari Escalera on 10-28-2023 Glucose [Mass/Vol] 97 mg/dL Normal 70-100 [facility] Comment on above: ADA recommended refe rence rangeRandom Glucose Reference Range is dependent on time and content of last meal. Glucose of more than 200 mg/dL in a nonstressed, ambulatory subject supports the diagnosis of Diabetes Mellitus. Result Comment: [place] om Glucose Reference Range is dependent on time and content of last meal. Glucose of more than 200 mg/dL in a nonstressed, ambulatory subject supports the diagnosis of Diabetes Mellitus. ADA recommended reference range Performed By: #### F E and TIBC, CMP, PREETI, [id number], B12, CBC, FOL, TSH3 #### [facility] [address] Hematocrit [Volume Fraction] of Blood by Automated countOrdered By: Bakari Escalera on 10-28-2023 Hematocrit (Bld) [Volume fraction] 40.5 % Normal 34.0-46.4 [facility] Comment on above: Performed By: #### F E and TIBC, CMP, PREETI, [id number], B12, CBC, FOL, TSH3 #### [address] Hemoglobin [Mass/volume] in BloodOrdered By: Bakari Escalera on 10-28-2023 Hemoglobin (Bld) [Mass/Vol] 13.5 g/dL Normal 11.8-15.4 [facility] Comment on above: Performed By: #### F E and TIBC, CMP, PREETI, [id number], B12, CBC, FOL, TSH3 #### [facility] [address] Iron [Mass/volume] in Serum or PlasmaOrdered By: Bakari Escalera on 10-28-2023 Iron [Mass/Vol] 57 ug/dL Normal 50-212 [facility] Comment on above: Performed By: #### F E and TIBC, CMP, PREETI, [id number], B12, CBC, FOL, TSH3 #### [facility] [address] Iron and TIBC Profileon % Iron Saturation 17.9 % Low 20-50 [facility] Comment on above: Performed By: #### F E and TIBC, CMP, PREETI, [id number], B12, CBC, FOL, TSH3 #### [facility] [address] Total Iron Binding Capacity 319 ug/dL Normal 255-450 [facility] Comment on above: Performed By: #### F E and TIBC, CMP, PREETI, [id number], B12, CBC, FOL, TSH3 #### [facility] [address] Iron binding capacity [Mass/ volume] in Serum or PlasmaOrdered By: Bakari Escalera on 10-28-2023 Iron binding capacity [Mass/Vol] 319 ug/dL 255-450 [facility] Iron saturation [Mass Fracti on] in Serum or PlasmaOrdered By: Bakari Escalera on 10-28-2023 Iron saturation [Mass fraction] 17.9 % Low 20-50 [facility] Leukocytes [#/volume] correc nickolas for nucleated erythrocytes in Blood by Automated counOrdered By: Bakari Escalera on 10-28-2023 WBC corrected for nucl RBC Auto (Bld) [#/Vol] 6.8 10*3/uL 3.8-11.6 [facility] Leukocytes [#/volume] in Blo od by Automated countOrdered By: Bakari Escalera on 10-28-2023 WBC (Bld) [#/Vol] 6.8 10*3/uL Normal 3.8-11.6 [facility] Comment on above: Performed By: #### F E and TIBC, CMP, PREETI, [id number], B12, CBC, FOL, TSH3 #### [address] Lymphocytes [#/volume] in Bl ood by Automated countOrdered By: Bakari Escalera on 10-28-2023 Lymphocytes (Bld) [#/Vol] 2.7 10*3/uL Normal 1.00-4.8 [facility] Comment on above: Performed By: #### F E and TIBC, CMP, PREETI, [id number], B12, CBC, FOL, TSH3 #### [address] Lymphocytes/100 leukocytes i n Blood by Automated countOrdered By: Bakari Escalera on 10-28-2023 Lymphocytes/100 WBC (Bld) 39.7 % Normal . [facility] Comment on above: Performed By: #### F E and TIBC, CMP, PREETI, [id number], B12, CBC, FOL, TSH3 #### [address] MCH [Entitic mass] by Automa nickolas countOrdered By: Bakari Escalera on 10-28-2023 MCH (RBC) [Entitic mass] 29.8 pg Normal 24.7-34.3 [facility] Comment on above: Performed By: #### F E and TIBC, CMP, PREETI, [id number], B12, CBC, FOL, TSH3 #### [address] MCHC Auto (RBC) [Mass/Vol]Or dered By: Bakari Escalera on 10-28-2023 MCHC (RBC) [Mass/Vol] 33.4 g/dL 32.0-35.0 [facility] MCV [Entitic volume] by Auto mated countOrdered By: Bakari Escalera on 10-28-2023 MCV (RBC) [Entitic vol] 89.1 fL Normal 80-100 [facility] Comment on above: Performed By: #### F E and TIBC, CMP, PREETI, [id number], B12, CBC, FOL, TSH3 #### [facility] [address] [place] [address] Neutrophils [#/volume] in Bl ood by Automated countOrdered By: Bakari Escalera on 10-28-2023 Neutrophils (Bld) [#/Vol] 3.4 10*3/uL Normal 1.8-7.7 [facility] Comment on above: Performed By: #### F E and TIBC, CMP, PREETI, [id number], B12, CBC, FOL, TSH3 #### [facility] [address] [place] [address] No Panel InformationOrdered By: Bakari Escalera on 10-28-2023 Estimated GFR (CKD-EPI) > 60.0 mL/Min [facility] Creatinine Clearance (Chem N/A [facility] Nucleated erythrocytes [Pres ence] in Blood by Automated countOrdered By: Bakari Escalera on 10-28-2023 Nucleated RBC Auto Ql (Bld) 0.0 /100{WBC} 0-0.5 [facility] Platelet mean volume [Entiti c volume] in Blood by Automated countOrdered By: Bakari Escalera on 10-28-2023 Platelet mean volume (Bld) [Entitic vol] 8.1 fL Normal 6.3-10.7 [facility] Comment on above: Performed By: #### F E and TIBC, CMP, PREETI, [id number], B12, CBC, FOL, TSH3 #### [facility] [address] [place] [address] Platelets [#/volume] in Bloo d by Automated countOrdered By: Bakari Escalera on 10-28-2023 Platelets (Bld) [#/Vol] 292 10*3/uL Normal 150-450 [facility] Comment on above: Performed By: #### F E and TIBC, CMP, PREETI, [id number], B12, CBC, FOL, TSH3 #### [address] Potassium [Moles/volume] in Serum or PlasmaOrdered By: Bakari Escalera on 10-28-2023 Potassium [Moles/Vol] 4.5 mmol/L Normal 3.5-5.1 [facility] Comment on above: Performed By: #### F E and TIBC, CMP, PREETI, [id number], B12, CBC, FOL, TSH3 #### [address] Protein [Mass/volume] in Ser um or PlasmaOrdered By: Bakari Escalera on 10-28-2023 Protein [Mass/Vol] 6.6 g/dL Normal 6.4-8.9 [facility] Comment on above: Performed By: #### F E and TIBC, CMP, PREETI, [id number], B12, CBC, FOL, TSH3 #### [address] Serum globulin measurement b y calculation (mass/volume)Ordered By: Bakari Escalera on 10-28-2023 Globulin (S) [Mass/Vol] 2.3 g/dL Normal [facility] Comment on above: Performed By: #### F E and TIBC, CMP, PREETI, [id number], B12, CBC, FOL, TSH3 #### [address] Serum or plasma albumin/glob ulin mass ratioOrdered By: Bakari Escalera on 10-28-2023 Albumin/Globulin [Mass ratio] 1.9 {ratio} [facility] Comment on above: Performed By: #### F E and TIBC, CMP, PREETI, [id number], B12, CBC, FOL, TSH3 #### [address] Serum or plasma anion gap de terminationOrdered By: Bakari Escalera on 10-28-2023 Anion gap [Moles/Vol] 6.6 mmol/L Normal 6.0-15.0 [facility] Comment on above: Performed By: #### F E and TIBC, CMP, PREETI, [id number], B12, CBC, FOL, TSH3 #### [facility] [address] [place] [address] [place] Sodium [Moles/volume] in Ser um or PlasmaOrdered By: Bakari Escalera on 10-28-2023 Sodium [Moles/Vol] 137 mmol/L Normal 136-145 [facility] Comment on above: Performed By: #### F E and TIBC, CMP, PREETI, [id number], B12, CBC, FOL, TSH3 #### [address] Thyrotropin [Units/volume] i n Serum or PlasmaOrdered By: Bakari Escalera on 10-28-2023 TSH Qn 1.64 m[IU]/L Normal 0.45-5.33 [facility] Comment on above: Performed By: #### F E and TIBC, CMP, PREETI, [id number], B12, CBC, FOL, TSH3 #### [address] Transferrin [Mass/volume] in Serum or PlasmaOrdered By: Bakari Escalera on 10-28-2023 Transferrin [Mass/Vol] 228 mg/dL Normal 203-362 [facility] Comment on above: Performed By: #### F E and TIBC, CMP, PREETI, [id number], B12, CBC, FOL, TSH3 #### [facility] [address] [place] [address] [place] Urea nitrogen [Mass/volume] in Serum or PlasmaOrdered By: Bakari Escalera on 10-28-2023 Urea nitrogen [Mass/Vol] 15 mg/dL Normal 7-25 [facility] Comment on above: Performed By: #### F E and TIBC, CMP, PREETI, [id number], B12, CBC, FOL, TSH3 #### [address] Vitamin B12 ser/plasOrdered By: Bakari Escalera on 10-28-2023 Cobalamin (Vitamin B12) [Mass/Vol] 465 pg/mL Normal 180-914 [facility] Comment on above: Performed By: #### F E and TIBC, CMP, PREETI, [id number], B12, CBC, FOL, TSH3 #### [facility] [address] [id number] [facility] Vitamin D 25 Hydroxy Totalon 10-28-2023 Vitamin D 25 Hydroxy Total 42.8 ng/mL Normal 30-100 [facility] Comment on above: Result Comment: TRAVIS MIN D STATUS 25(OH)VITAMIN D RANGE (ng/mL) Deficient <20 Insufficient 20 to <30 Sufficient 30 to 100 Reference: Marina Martinez, Tasha JOVEL, et al. Evaluation,treatment, and prevention of vitamin D deficiency; an Endocrine Society clinical practice guideline. JCEM. 2010; 96(7):1911-. PERFORMED BY: [place] [address] PATHOLOGIST INORGANIC CHEMISTRY PROFESSOR NAM BOWMAN M.D. Performed By: #### F E and TIBC, CMP, PREETI, [id number], B12, CBC, FOL, TSH3 #### [facility] [address] [id number] [facility] Vitamin D+Metabolites [Mass/ volume] in Serum or PlasmaOrdered By: Bakari Escalera on 10-28-2023 Vitamin D+Metabolites [Mass/Vol] 42.8 ng/mL 30-100 [facility] Comment on above: VITAMIN D STATUS 25( [place])VITAMIN D RANGE (ng/mL) Deficient <20 Insufficient 20 to <30Sufficient 30 to 100Reference: Marina Martinez, Tasha JOVEL, et al. Evaluation,treatment, and prevention of vitamin D deficiency; an Endocrine Society clinical practice guideline. JCEM. 2010; 96(7):1911-. Urinalysis macro (dipstick) panel (U)on 10-20-2023 Bilirubin, UA Negative Negative - 4(70) +++ mg/dL [facility] Healthcare Blood, UA Negative Negative - 50 Arturo/mcL [facility] Clarity, UA Clear [facility] Color, UA Light Yellow [facility] Glucose, UA Negative Negative - 2000(110) ++++ mg/dL [facility] Ketones, UA Negative Negative - 160(16) ++++ mg/dL [facility] Leukocytes, UA Negative Negative - 500+++ Jaylon/mcL [facility] Nitrite, UA Negative Negative - Positive [facility] pH, UA 6.0 5 - 9 [facility] Protein, UA Negative Negative - 2000(20) ++++ mg/dL [facility] Spec Grav, UA 1.005 1 - 1.03 [facility] Urobilinogen, UA 0.2 0.2 - 12 mg/dL [facility] Psychiatry Adulton 3 Psychiatry Adult Orders Anxiety and depression Renew: buPROPion HCl ER (XL) 150 MG Oral Tablet Extended Release 24 Hour; Take 1 tablet daily Anxiety disorder Renew: Sertraline HCl - 50 MG Oral Tablet; Take 1.5 Tabs po q am and 5 exta tab per month during Luteal Phase Provider Impressions IMP: 31 yo M w/ ADEN. MDE. PMH Hx of Infertility, PUGH, now , Anxiety and Depression. Adopted a baby boy, Cornelius, now 3 yo old, and delivered baby 06/19/2021 via unassisted conception. Stressors include recent of grandmother in Jan 2020, loss of other family in past few yrs. .PP after urgent CSX for baby girlTiti, on 06/19,. Denies psychologically traumatic, but painful at [facility] . INTERIM: Denies new medications. Taking Sertraline 75 mg , Wellbutrin 150mg XL x 2 ys. . Now at 16 months pp. summer. Still . Reports mood 'may have PMDD' resumed 4 cyycles, gets 'very angry, edgy, irritable, has 'no filter', irritable, now at 27-30 days, 2-3 days in Luteal Phases, getting like getting ng worse, bloating, some painful, heavier, increased fatigue no craving nausea, migraines, after first days flowing. Discussed intermittent dosing for 5 days, has PUGH and some vertigo, and self care ie increase water intake, will add 1/2 1 tab of Sertraline 50 mg , pt in agreement. Reviewed lifestyle changes as well ie water intake, sleep, exercise, high fiber diet. . 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 Verbal consent was requested and obtained from JESSICA GYJUAN MANUEL on this date, 10/14/2022 08:00 AM , for a telehealth visit. Active Problems Problems Anxiety and depression (300.00,311) (F41.9,F32.A) Anxiety disorder (300.00) (F41.9) Class 1 obesity with body mass index (BMI) of 30.0 to 30.9 in adult (278.00,V85.30) (E66.9,Z68.30) Dysmenorrhea (625.3) (N94.6) Encounter to determine viability of , single or unspecified fetus (V23.87) (O36.80X0) Endometriosis (617.9) (N80.9) Female infertility (628.9) (N97.9) Fertility testing (V26.21) (Z31.41) Hypotension (458.9) (I95.9) Neurocardiogenic pre-syncope (780.2) (R55) Never a smoker Pelvic floor dysfunction (618.83) (M62.89) Pelvic floor tension (597.81) (M62.89) Positive test (V72.42) (Z32.01) Routine screening for STI (sexually transmitted infection) (V74.5) (Z11.3) Past Medical History Problems History of Unconfirmed (V72.40) (Z32.00) Resolved Date: 30 Jul 2020 Surgical History Problems History of section History of Complete colonoscopy History of Ear pressure equalization tube insertion History of Tonsillectomy with adenoidectomy Family History Mother No pertinent family history Father No pertinent family history Grandparent Family history of diabetes mellitus (V18.0) (Z83.3) Grandmother FH: CABG (coronary artery bypass surgery) (V17.3) (Z82.49) FH: colon cancer (V16.0) (Z80.0) Family history of TIA (transient ischemic attack) Social History Problems Alcohol use (V49.89) (Z78.9) socially Caffeine use (V49.89) (Z78.9) 1 cup daily Never a smoker No illicit drug use Allergies Medication Advil Cold AND Sinus Liqui-Gels CAPS Hives;; Recorded By: Lorenza Haley; 07/22/2021 4:42:24 PM Augmentin Hives;; Updated By: Lorenza Haley; 07/22/2021 4:42:24 PM Ceclor CAPS Hives;; Recorded By: Lorenza Haley; 07/22/2021 4:42:24 PM Omnicef CAPS Hives;; Recorded By: Lorenza Haley; 07/22/2021 4:42:24 PM Sulfa Drugs Hives;; Recorded By: Lorenza Haley; 07/22/2021 4:42:24 PM Zithromax Hives;; Recorded By: Lorenza Haley; 07/22/2021 4:42:24 PM amoxicillin Recorded By: Janie Talamantes; 12/27/2019 3:13:57 PM Bactrim Recorded By: Janie Talamantes; 12/27/2019 3:13:57 PM doxycycline Recorded By: Janie Talamantes; 12/27/2019 3:13:57 PM Sulfonamide Derivatives Recorded By: Janie Talamantes; 12/27/2019 3:13:57 PM Current Meds Medication NameInstruction buPROPion HCl ER (XL) 150 MG Oral Tablet Extended Release 24 HourTake 1 tablet daily Magnesium Oxide 400 MG Oral TabletTAKE 1 TABLET DAILY. 19 Oral Tablet Probiotic CAPSTAKE 1 CAPSULE Daily Sertraline HCl - 50 MG Oral TabletTake 1.5 Tabs po q am Mental Status Exam General: Appropriately groomed and dressed Appearance: Appears stated age Attitude: Calm, cooperative Behavior: Appropriate eye contact. Motor Activity: No agitation or retardation. No EPS/TD. Normal gait and station. Speech: Regular rate, rhythm, volume (more content not included)... Normal [facility] Adult No report was sent Normal [facility] Alanine aminotransferase [En zymatic activity/volume] in Serum or PlasmaOrdered By: Bakari Escalera on 08-15-2023 ALT [Catalytic activity/Vol] 10 U/L 7-52 [facility] Albumin [Mass/volume] in Ser um or Plasma by Bromocresol green (BCG) dye binding methoOrdered By: Bakari Escalera on 10-05-2022 Albumin BCG dye [Mass/Vol] 4.4 g/dL 3.5-5.7 [facility] Alkaline phosphatase [Enzyma tic activity/volume] in Serum or PlasmaOrdered By: Bakari Escalera on 10-05-2022 ALP [Catalytic activity/Vol] 65 U/L 34-104 [facility] Aspartate aminotransferase [ Enzymatic activity/volume] in Serum or PlasmaOrdered By: Bakari Escalera on 10-05-2022 AST [Catalytic activity/Vol] 13 U/L 13-39 [facility] Automated erythrocytes count in urine sediment (number/area)Ordered By: Bakari Escalera on 10-05-2022 RBC Auto (Urine sed) [#/Area] 1-2 [HPF] 0-4 [facility] Automated leukocytes count i n urine sediment (number/area)Ordered By: Bakari Escalera on 10-05-2022 WBC Auto (Urine sed) [#/Area] 1-2 [HPF] 0-4 [facility] Basophils Auto (Bld) [#/Vol] Ordered By: Bakari Escalera on 10-05-2022 Basophils (Bld) [#/Vol] 0.0 10*3/uL 0.0-0.2 [facility] Basophils/100 WBC Auto (Bld) Ordered By: Bakari Escalera on 10-05-2022 Basophils/100 WBC (Bld) 0.6 % . [facility] Bilirubin Test strip Ql (U)O rdered By: Bakari Escalera on 10-05-2022 Bilirubin Ql (U) Negative Negative [facility] Bilirubin.total [Mass/volume ] in Serum or PlasmaOrdered By: Bakari Escalera on 10-05-2022 Bilirubin [Mass/Vol] 0.4 mg/dL 0.3-1.0 [facility] Calcium [Mass/volume] in Ser um or PlasmaOrdered By: Bakari Escalera on 10-05-2022 Calcium [Mass/Vol] 9.6 mg/dL 8.6-10.3 [facility] Carbon dioxide, total [Moles /volume] in Serum or PlasmaOrdered By: Bakari Escalera on 10-05-2022 CO2 [Moles/Vol] 28.5 mmol/L 21.0-31.0 [facility] Chloride [Moles/volume] in S brenda or PlasmaOrdered By: Bakari Escalera on 10-05-2022 Chloride [Moles/Vol] 106 mmol/L 98-107 [facility] Cholesterol [Mass/volume] in Serum or PlasmaOrdered By: Bakari Escalera on 10-05-2022 Cholesterol [Mass/Vol] 154 mg/dL 140-200 [facility] Comment on above: Chol less than 200 m g/dl low riskChol 201-239 mg/dl borderline riskChol 240 mg/dl and greater high risk Cholesterol in LDL Calc [Mas s/Vol]Ordered By: Bakari Escalera on 10-05-2022 Cholesterol in LDL [Mass/Vol] 89 mg/dL 0-100 [facility] Comment on above: LDL ATP III CLASSIFI CATIONLDL less than 100 mg/dL OptimalLDL 100-129 mg/dL Near or above optimalLDL 130-159 mg/dL Borderline highLDL 160-189 mg/dL HighLDL greater than 189 mg/dL Very high Cholesterol in VLDL Calc [Ma ss/Vol]Ordered By: Bakari Escalera on 10-05-2022 Cholesterol in VLDL [Mass/Vol] 11 mg/dL [facility] Color Auto (U)Ordered By: Bowen Escalera on 10-05-2022 Color (U) Yellow Yellow [facility] Creatinine [Mass/volume] in Serum or PlasmaOrdered By: Bakari Escalera on 10-05-2022 Creatinine [Mass/Vol] 0.93 mg/dL 0.60-1.20 [facility] Eosinophils Auto (Bld) [#/Vo l]Ordered By: Bakari Escalera on 10-05-2022 Eosinophils (Bld) [#/Vol] 0.1 10*3/uL 0.0-0.45 [facility] Eosinophils/100 WBC Auto (Bl d)Ordered By: Bakari Escalera on 10-05-2022 Eosinophils/100 WBC (Bld) 1.0 % . [facility] Erythrocyte distribution wid th Auto (RBC) [Ratio]Ordered By: Bakari Escalera on 10-05-2022 Erythrocyte distribution width (RBC) [Ratio] 13.0 % 11.9-15.3 [facility] Globulin Calc (S) [Mass/Vol] Ordered By: Bakari Escalera on 10-05-2022 Globulin (S) [Mass/Vol] 2.4 g/dL [facility] Glucose [Mass/volume] in Ser um or PlasmaOrdered By: Bakari Escalera on 10-05-2022 Glucose [Mass/Vol] 89 mg/dL 70-100 [facility] Comment on above: ADA recommended refe rence rangeRandom Glucose Reference Range is dependent on time and content of last meal. Glucose of more than 200 mg/dL in a nonstressed, ambulatory subject supports the diagnosis of Diabetes Mellitus. Hematocrit Auto (Bld) [Volum e fraction]Ordered By: Bakari Escalera on 10-05-2022 Hematocrit (Bld) [Volume fraction] 41.0 % 34.0-46.4 [facility] Hemoglobin [Mass/volume] in BloodOrdered By: Bakari Escalera on 10-05-2022 Hemoglobin (Bld) [Mass/Vol] 13.4 g/dL 11.8-15.4 [facility] Ketones Auto test strip (U) [Mass/Vol]Ordered By: Bakari Escalera on 10-05-2022 Ketones (U) [Mass/Vol] Negative Negative [facility] - UrinalysisOrder ed By: Bakari Escalera on 10-05-2022 Hyaline casts LM Ql (Urine sed) 0-8 [LPF] 0-8 [facility] Leukocytes [#/volume] correc nickolas for nucleated erythrocytes in Blood by Automated counOrdered By: Bakari Escalera on 10-05-2022 WBC corrected for nucl RBC Auto (Bld) [#/Vol] 6.9 10*3/uL 3.8-11.6 [facility] Lymphocytes Auto (Bld) [#/Vo l]Ordered By: Bakari Escalera on 10-05-2022 Lymphocytes (Bld) [#/Vol] 2.1 10*3/uL 1.00-4.8 [facility] Lymphocytes/100 WBC Auto (Bl d)Ordered By: Bakari Escalera on 10-05-2022 Lymphocytes/100 WBC (Bld) 31.0 % . [facility] MCH Auto (RBC) [Entitic mass ]Ordered By: Bakari Escalera on 10-05-2022 MCH (RBC) [Entitic mass] 29.1 pg 24.7-34.3 [facility] MCHC Auto (RBC) [Mass/Vol]Or dered By: Bakari Escalera on 10-05-2022 MCHC (RBC) [Mass/Vol] 32.6 g/dL 32.0-35.0 [facility] MCV Auto (RBC) [Entitic vol] Ordered By: Bakari Escalera on 10-05-2022 MCV (RBC) [Entitic vol] 89.1 fL 80-100 [facility] Monocytes Auto (Bld) [#/Vol] Ordered By: Bakari Escalera on 10-05-2022 Monocytes (Bld) [#/Vol] 0.5 10*3/uL 0.0-0.8 [facility] Monocytes/100 WBC Auto (Bld) Ordered By: Bakari Escalera on 10-05-2022 Monocytes/100 WBC (Bld) 7.2 % . [facility] Neutrophils Auto (Bld) [#/Vo l]Ordered By: Bakari Escalera on 10-05-2022 Neutrophils (Bld) [#/Vol] 4.1 10*3/uL 1.8-7.7 [facility] Neutrophils/100 WBC Auto (Bl d)Ordered By: Bakari Escalera on 10-05-2022 Neutrophils/100 WBC (Bld) 60.2 % . [facility] Nitrite Test strip Ql (U)Ord ered By: Bakari Escalera on 10-05-2022 Nitrite Ql (U) Negative Negative [facility] No Panel InformationOrdered By: Bakari Escalera on 10-05-2022 Estimated GFR (CKD-EPI) > 60.0 mL/Min [facility] Creatinine Clearance (Chem N/A [facility] Nucleated erythrocytes [Pres ence] in Blood by Automated countOrdered By: Bakari Escalera on 10-05-2022 Nucleated RBC Auto Ql (Bld) 0.1 /100{WBC} 0-0.5 [facility] Platelet mean volume Auto (B ld) [Entitic vol]Ordered By: Bakari Escalera on 10-05-2022 Platelet mean volume (Bld) [Entitic vol] 7.7 fL 6.3-10.7 [facility] Platelets Auto (Bld) [#/Vol] Ordered By: Bakari Escalera on 10-05-2022 Platelets (Bld) [#/Vol] 293 10*3/uL 150-450 [facility] Potassium [Moles/volume] in Serum or PlasmaOrdered By: Bakari Escalera on 10-05-2022 Potassium [Moles/Vol] 4.6 mmol/L 3.5-5.1 [facility] Protein Auto test strip (U) [Mass/Vol]Ordered By: Bakari Escalera on 10-05-2022 Protein (U) [Mass/Vol] Negative Negative [facility] Protein [Mass/volume] in Ser um or PlasmaOrdered By: Bakari Escalera on 10-05-2022 Protein [Mass/Vol] 6.8 g/dL 6.4-8.9 [facility] RBC Auto (Bld) [#/Vol]Ordere d By: Bakari Escalera on 10-05-2022 RBC (Bld) [#/Vol] 4.60 10*6/uL 3.60-5.00 [facility] Serum or plasma albumin/glob ulin mass ratioOrdered By: Bakari Escalera on 10-05-2022 Albumin/Globulin [Mass ratio] 1.8 {ratio} [facility] Serum or plasma anion gap de terminationOrdered By: Bakari Escalera on 10-05-2022 Anion gap [Moles/Vol] 11.1 mmol/L 6.0-15.0 [facility] Serum or plasma high density lipoprotein (HDL) cholesterol measurementOrdered By: Bakari Escalera on 10-05-2022 Cholesterol in HDL [Mass/Vol] 53 mg/dL 23-92 [facility] Comment on above: HDL CHOL ATP-III CLA SSIFICATION Cardiovascular RiskHDL > or equal to 60 mg/dL LOWHDL < 40 mg/dL HIGH Serum or plasma total choles terol/high density lipoprotein (HDL) cholesterol mass ratOrdered By: Bakari Escalera on 10-05-2022 Cholesterol.total/Manju sterol in HDL [Mass ratio] 2.9 {ratio} <5.0 [facility] Sodium [Moles/volume] in Ser um or PlasmaOrdered By: Bakari Escalera on 10-05-2022 Sodium [Moles/Vol] 141 mmol/L 136-145 [facility] Specific gravity Auto test s trip (U) [Rel density]Ordered By: Bakari Escalera on 10-05-2022 Specific gravity (U) [Rel density] 1.023 1.001-1.030 [facility] Squamous epithelial cells de tection in urine sediment by light microscopyOrdered By: Bakari Escalera on 10-05-2022 Epithelial cells.squamous LM Ql (Urine sed) 3-4 [HPF] 0-2 [facility] Thyrotropin [Units/volume] i n Serum or PlasmaOrdered By: Bakari Escalera on 10-05-2022 TSH Qn 2.13 m[IU]/L 0.45-5.33 [facility] Triglyceride [Mass/volume] i n Serum or PlasmaOrdered By: Bakari Escalera on 10-05-2022 Triglyceride [Mass/Vol] 58 mg/dL 0-149 [facility] Comment on above: TRIG ATP III CLASSIF ICATIONTRIG less than 150 mg/dL NormalTRIG 150-199 mg/dL Borderline highTRIG 200-500 mg/dL High TRIG greater than 500 mg/dL Very highStandard traceable to the Center for Disease Conrtrol and Prevention (CDC) test method. Urea nitrogen [Mass/volume] in Serum or PlasmaOrdered By: Bakari Escalera on 10-05-2022 Urea nitrogen [Mass/Vol] 18 mg/dL 7-25 [facility] Urine bacteria detection by automated methodOrdered By: Bakari Escalera on 10-05-2022 Bacteria Auto Ql (U) None seen None Seen [facility] Urine clarity by refractomet ry automatedOrdered By: Bakari Escalera on 10-05-2022 Clarity Refractometry automated (U) Cloudy Clear [facility] Urine glucose measurement by automated test strip (mass/volume)Ordered By: Bakari Escalera on 10-05-2022 Glucose Auto test strip (U) [Mass/Vol] Normal mg/dL Normal [facility] Urine hemoglobin detection b y automated test stripOrdered By: Bakari Escalera on 10-05-2022 Hemoglobin Auto test strip Ql (U) Negative Negative [facility] Urine leukocyte esterase det ection by automated test stripOrdered By: Bakari Escalera on 10-05-2022 Leukocyte esterase Auto test strip Ql (U) Negative Negative [facility] Urobilinogen Auto test strip (U) [Mass/Vol]Ordered By: Bakari Escalera on 10-05-2022 Urobilinogen (U) [Mass/Vol] Normal mg/dL Normal [facility] WBC Auto (Bld) [#/Vol]Ordere d By: Bakari Escalera on 10-05-2022 WBC (Bld) [#/Vol] 6.9 10*3/uL 3.8-11.6 [facility] pH Auto test strip (U)Ordere d By: Bakari Escalera on 10-05-2022 pH (U) 7.0 [pH] 5.0-9.0 [facility] Office Visit (Cardiology)on 08-31-2022 Follow-up visit Diagnoses/Problems Assessed Hypotension (458.9) (I95.9) Class 1 obesity with body mass index (BMI) of 30.0 to 30.9 in adult (278.00,V85.30) (E66.9,Z68.30) Never a smoker Orders Class 1 obesity with body mass index (BMI) of 30.0 to 30.9 in adult Healthy Weight Tips; Status:Complete - Retrospective Authorization; Done: [id number] Some eating tips that can help you lose weight.; Status:Complete - Retrospective Authorization; Done: [id number] SocHx: Never a smoker Tobacco Use Screening; Status:Complete; Done: [id number] Patient Instructions Follow up in 6 months Same meds Chief Complaint JESSICA VALDEZ is being seen for dizziness and hypotension. Patient was added to scheduled for blood pressure check since she has been complaining of dizziness that seem to be orthostatic. 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 Had a baby few months ago and she is breast feeding the baby. Currently not on medical therapy. We checked orthostatic blood pressure changes and there were no significant changes. She had mild dizziness with body position changes. Advised patient that at this time not to go on medical therapy with Jenniferinef but instead increase her fluid and salt intake and do it more naturally. She will come back to see me in 6 months. Current Meds Medication NameInstruction buPROPion HCl ER (XL) 150 MG Oral Tablet Extended Release 24 HourTAKE 1 TABLET BY MOUTH EVERY DAY Magnesium Oxide 400 MG Oral TabletTAKE 1 TABLET DAILY. 19 Oral Tablet Probiotic CAPSTAKE 1 CAPSULE Daily Sertraline HCl - 50 MG Oral TabletTake 1.5 Tabs po q am Allergies Medication Advil Cold AND Sinus Liqui-Gels CAPS Hives;; Recorded By: Lorenza Haley; 07/22/2021 4:42:24 PM Augmentin Hives;; Updated By: Lorenza Haley; 07/22/2021 4:42:24 PM Ceclor CAPS Hives;; Recorded By: Lorenza Haley; 07/22/2021 4:42:24 PM Omnicef CAPS Hives;; Recorded By: Lorenza Haley; 07/22/2021 4:42:24 PM Sulfa Drugs Hives;; Recorded By: Lorenza Haley; 07/22/2021 4:42:24 PM Zithromax Hives;; Recorded By: Lorenza Haley; 07/22/2021 4:42:24 PM amoxicillin Recorded By: Janie Talamantes; 12/27/2019 3:13:57 PM Bactrim Recorded By: Janie Talamantes; 12/27/2019 3:13:57 PM doxycycline Recorded By: Janie Talamantes; 12/27/2019 3:13:57 PM Sulfonamide Derivatives Recorded By: Janie Talamantes; 12/27/2019 3:13:57 PM Social History Problems Never a smoker Vitals Vital Signs Recorded: [id number] 11:58AM Height5 ft 10 in Fwddlh141 lb BMI Qrikaczzhi27.56 kg/m2 BSA Calculated2.14 Tobacco Useb) No Falls Screening (Age 18+)a) No falls within the last year Systolic Lying98, RUE, Supine Diastolic Lying60, RUE, Supine Systolic Scrmjwr77, RUE, Sitting Diastolic Sjgusjf96, RUE, Sitting Systolic Xaynpubn090, RUE, Standing Diastolic Nnxwysnu21, RUE, Standing Heart Rate Lying78, R Radial Heart Rate Yxiymxr26, R Radial Heart Rate Rtdcncvc44, R Radial Signatures Electronically signed by : Ariel Calderon MD; Aug 31 2022 12:44PM EST (Author) Normal [facility] Tobacco Screening.on 023 Fall risk assessment a) No falls within the last year [facility] k 600 DO Work Phone: Tobacco use status CP b) No M [facility] k 600 DO Work Phone: Psychiatry Adulton 3 Psychiatry Adult Provider Impressions IMP: 31 yo M w/ ADEN. MDE. PMH Hx of Infertility, now , Anxiety and Depression. Adopted a baby boy, Cornelius, now 21 months old, and delivered baby 06/19/2021 via unassisted conception. Stressors include recent of grandmother in Jan 2020, loss of other family in past few yrs. .PP after urgent CSX for baby girl, Titi, on 06/19,. Denies psychologically traumatic, but painful at [facility] . INTERIM: Denies new medications. Taking Sertraline 75 mg and remains on current dose of Wellbutrin 150mg XL x 2 ys. . Now at 14 months pp. ANXIETY Seeing therapist every 2 weeks, Mood w/ some irritability, lack of patience d/t stressful end of first yr of school, felt unsupported, and losing colleagues. No SI/HI. Sleep is better than previously ie getting 5 hors stretches. Still BFing w.aim for 18 month . Mother of w toddlers, 1 and 2 yo, has sufficient help. Sonia is teething , and fussy. Discussed self care for summer, ie time for self, meeting friends, exercise et. Agrees to maintain current regime. Discussed plan to revise regime if not improved by end of summer. 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 Verbal consent was requested and obtained from JESSICA VALDEZ on this date, 08/10/2022 11:00 AM , for a telehealth visit. Active Problems Problems Anxiety and depression (300.00,311) (F41.9,F32.A) Anxiety disorder (300.00) (F41.9) Class 1 obesity with body mass index (BMI) of 30.0 to 30.9 in adult (278.00,V85.30) (E66.9,Z68.30) Dysmenorrhea (625.3) (N94.6) Encounter to determine viability of , single or unspecified fetus (V23.87) (O36.80X0) Endometriosis (617.9) (N80.9) Female infertility (628.9) (N97.9) Fertility testing (V26.21) (Z31.41) Neurocardiogenic pre-syncope (780.2) (R55) Never a smoker Pelvic floor dysfunction (618.83) (M62.89) Pelvic floor tension (597.81) (M62.89) Positive test (V72.42) (Z32.01) Routine screening for STI (sexually transmitted infection) (V74.5) (Z11.3) Past Medical History Problems History of Unconfirmed (V72.40) (Z32.00) Resolved Date: 30 Jul 2020 Surgical History Problems History of section History of Complete colonoscopy History of Ear pressure equalization tube insertion History of Tonsillectomy with adenoidectomy Family History Mother No pertinent family history Father No pertinent family history Grandparent Family history of diabetes mellitus (V18.0) (Z83.3) Grandmother FH: CABG (coronary artery bypass surgery) (V17.3) (Z82.49) FH: colon cancer (V16.0) (Z80.0) Family history of TIA (transient ischemic attack) Social History Problems Alcohol use (V49.89) (Z78.9) socially Caffeine use (V49.89) (Z78.9) 1 cup daily Never a smoker No illicit drug use Allergies Medication Advil Cold AND Sinus Liqui-Gels CAPS Hives;; Recorded By: Lorenza Haley; 07/22/2021 4:42:24 PM Augmentin Hives;; Updated By: Lorenza Haley; 07/22/2021 4:42:24 PM Ceclor CAPS Hives;; Recorded By: Lorenza Haley; 07/22/2021 4:42:24 PM Omnicef CAPS Hives;; Recorded By: Lorenza Haley; 07/22/2021 4:42:24 PM Sulfa Drugs Hives;; Recorded By: Lorenza Haley; 07/22/2021 4:42:24 PM Zithromax Hives;; Recorded By: Lorenza Haley; 07/22/2021 4:42:24 PM amoxicillin Recorded By: Janie Talamantes; 12/27/2019 3:13:57 PM Bactrim Recorded By: Janie Talamantes; 12/27/2019 3:13:57 PM doxycycline Recorded By: Janie Talamantes; 12/27/2019 3:13:57 PM Sulfonamide Derivatives Recorded By: Janie Talamantes; 12/27/2019 3:13:57 PM Current Meds Medication NameInstruction buPROPion HCl ER (XL) 150 MG Oral Tablet Extended Release 24 HourTAKE 1 TABLET BY MOUTH EVERY DAY 19 Oral Tablet Sertraline HCl - 100 MG Oral TabletTAKE 1 TABLET BY MOUTH EVERY MORNING WITH A MEAL Sertraline HCl - 25 MG Oral Tablettake 1 tab qd as directed Sertraline HCl - 50 MG Oral TabletTake 1.5 Tabs po q am Mental Status Exam General: Appropriately groomed and dressed Appearance: Appears stated age Attitude: Calm, cooperative Behavior: Appropriate eye contact. Motor Activity: No agitation or retardation. No EPS/TD. Normal gait and station. Speech: Regular rate, rhythm, volume and tone, spontaneous, fluent. Mood: some irritability d/t stress from work,. Affect: Appropriate with full range Thought Process: Organized, linear, goal directed. Associations are logical. Thought Content: Does not endorse suicidal or homicidal ideation, no delusions elicited. Thought Perception: Does not endorse auditory or (more content not included)... Normal [facility] CBC AUTO DIFFon 06-22-2022 BASO # 0.0 103/ul Normal 0.0-0.1 [facility] Comment on above: Performed By: #### C BC #### [facility] [address] [place] [address] Dr. Katharine Holden Basophils/100 WBC (Bld) 0.5 % Normal 0.2-2.0 [facility] Comment on above: Performed By: #### C BC #### [facility] [address] [place] [address] Dr. Katharine Holden EO # 0.0 103/ul Normal 0.0-0.7 [facility] Comment on above: Performed By: #### C BC #### [facility] [address] [place] [address] Dr. Katharine Holden Eosinophils/100 WBC (Bld) 0.2 % Critically low 0.9-7.0 [facility] Comment on above: Performed By: #### C BC #### [facility] [address] [place] [address] Dr. Katharine Holden Erythrocyte distribution width (RBC) [Ratio] 12.1 % Normal 11.0-15.0 [facility] Comment on above: Performed By: #### C BC #### [facility] [address] [place] [address] Dr. Katharine Holden Hematocrit (Bld) [Volume fraction] 44.6 % Normal 36.0-48.0 [facility] Comment on above: Performed By: #### C BC #### [facility] [address] [place] [address] Dr. Katharine Holden Hemoglobin (Bld) [Mass/Vol] 14.2 g/dL Normal 12.0-16.0 [facility] Comment on above: Performed By: #### C BC #### [facility] [address] [place] [address] Dr. Katharine Holden IG # 0.02 10e3/ul Normal 0.00-0.03 [facility] Comment on above: Performed By: #### C BC #### [facility] [address] [place] [address] Dr. Katharine Holden IG % 0.3 % Normal 0.0-0.5 [facility] Comment on above: Performed By: #### C BC #### [facility] [address] [place] [address] Dr. Katharine Holden LYMPH # 1.0 103/ul Critically low 1.2-3.[address] [facility] Comment on above: Performed By: #### C BC #### [facility] [address] [place] [address] Dr. Katharine Holden Lymphocytes/100 WBC (Bld) 17.8 % Critically low 20.5-60.0 [facility] Comment on above: Performed By: #### C BC #### [facility] [address] [place] [address] Dr. Katharine Holden MANUAL DIFF REQ NO Normal [facility] Comment on above: Performed By: #### C BC #### [facility] [address] [place] [address] Dr. Katharine Holden MCH (RBC) [Entitic mass] 28.9 pg Normal 26.7-34.0 [facility] Comment on above: Performed By: #### C BC #### [facility] [address] [place] [address] Dr. Katharine Holden MCHC (RBC) [Mass/Vol] 31.8 g/dL Normal 29.9-35.2 [facility] Comment on above: Performed By: #### C BC #### [facility] [address] [place] [address] Dr. Katharine Holden MCV (RBC) [Entitic vol] 90.7 fL Normal 81.0-99.0 [facility] Comment on above: Performed By: #### C BC #### [facility] [address] [place] [address] Dr. Katharine Holden MONO # 0.4 103/ul Normal 0.3-0.8 [facility] Comment on above: Performed By: #### C BC #### [facility] [address] [place] [address] Dr. Katharine Holden Monocytes/100 WBC (Bld) 7.0 % Normal 1.7-12.0 [facility] Comment on above: Performed By: #### C BC #### [facility] [address] [place] [address] Dr. Katharine Holden NEUT # 4.3 103/ul Normal 1.4-6.5 [facility] Comment on above: Performed By: #### C BC #### [facility] [address] [place] [address] Dr. Katharine Holden Neutrophils/100 WBC (Bld) 74.2 % Normal 43.0-75.0 [facility] Comment on above: Performed By: #### C BC #### [facility] [address] [place] [address] Dr. Katharine Holden Platelet mean volume (Bld) [Entitic vol] 9.8 fL Normal 9.5-13.5 [facility] Comment on above: Performed By: #### C BC #### [facility] [address] [place] [address] Dr. Katharine Holden PLT 256 103/ul Normal 150-450 [facility] Comment on above: Performed By: #### C BC #### [facility] [address] [place] [address] Dr. Katharine Holden RBC 4.92 106/ul Normal 4.20-5.40 [facility] Comment on above: Performed By: #### C BC #### [facility] [address] [place] [address] Dr. Katharine Holden WBC 5.7 103/ul Normal 4.0-11.0 [facility] Comment on above: Performed By: #### C BC #### [facility] [address] [place] [address] Dr. Katharine Holden PREG HCG QUALon 06-22-2022 , QUAL Negative Normal NEGATIVE [facility] Comment on above: Performed By: #### P REG #### [facility] [address] [place] [address] Dr. Katharine Holden PROF 14(COMP METB)on 023 Albumin [Mass/Vol] 3.7 g/dL Normal 3.4-5.0 [facility] Comment on above: Performed By: #### C MP #### [facility] [address] [place] [address] Dr. Katharine Holden Albumin/Globulin [Mass ratio] 1.1 {ratio} Normal [facility] Comment on above: Performed By: #### C MP #### [facility] [address] [address] [address] Katharine Holden ALP [Catalytic activity/Vol] 91 U/L Normal 46-116 [facility] Comment on above: Performed By: #### C MP #### [facility] [address] [address] [address] Katharine Holden ALT [Catalytic activity/Vol] 28 U/L Normal 14-59 [facility] Comment on above: Performed By: #### C MP #### [facility] [address] [address] [address] Katharine Holden Anion gap [Moles/Vol] 12.6 mmol/L Normal [facility] Comment on above: Performed By: #### C MP #### [facility] [address] [address] [address] Katharine Holden AST [Catalytic activity/Vol] 18 U/L Normal 15-37 [facility] Comment on above: Performed By: #### C MP #### [facility] [address] [address] [address] Katharine Holden Bilirubin [Mass/Vol] 0.3 mg/dL Normal 0.2-1.0 [facility] Comment on above: Performed By: #### C MP #### [facility] [address] [address] [address] Katharine Holden Calcium [Mass/Vol] 8.5 mg/dL Normal 8.5-10.1 [facility] Comment on above: Performed By: #### C MP #### [facility] [address] [address] [address] Katharine Holden Chloride [Moles/Vol] 105 mmol/L Normal 98-107 [facility] Comment on above: Performed By: #### C MP #### [facility] [address] [address] [address] Katharine Holden CO2 [Moles/Vol] 25.9 mmol/L Normal 21.0-32.0 [facility] Comment on above: Performed By: #### C MP #### [facility] [address] [address] [address] Katharine Holden Creatinine [Mass/Vol] 0.95 mg/dL Normal 0.55-1.02 [facility] Comment on above: Performed By: #### C MP #### [facility] [address] [address] [address] Katharine Holden EGFR-AF BURUNDIAN >60 Normal >=60 [facility] Comment on above: Performed By: #### C MP #### [facility] [address] [address] [address] Katharine Holden EGFR-NON AF [place]DIAN >60 Normal >=60 [facility] Comment on above: Performed By: #### C MP #### [facility] [address] [address] [address] Katharine Holden Globulin (S) [Mass/Vol] 3.4 g/dL Normal [facility] Comment on above: Performed By: #### C MP #### [facility] [address] [address] [address] Katharine Holden Glucose [Mass/Vol] 108 mg/dL Critically high 74-106 [facility] Comment on above: Performed By: #### C MP #### [facility] [address] [place] [address] Dr. Katharine Holden Potassium [Moles/Vol] 3.5 mmol/L Normal 3.5-5.1 [facility] Comment on above: Performed By: #### C MP #### [facility] [address] [address] [address] Katharine Holden Protein [Mass/Vol] 7.1 g/dL Normal 6.4-8.2 [facility] Comment on above: Performed By: #### C MP #### [facility] [address] [place] [address] Dr. Katharine Holden Sodium [Moles/Vol] 140 mmol/L Normal 136-145 [facility] Comment on above: Performed By: #### C MP #### [facility] [address] [address] [address] Katharine Holden Urea nitrogen [Mass/Vol] 11.0 mg/dL Normal 7.0-18.0 [facility] Comment on above: Performed By: #### C MP #### [facility] [address] [place], [place] [address] Dr. Katharine Holden Urea nitrogen/Creatinine [Mass ratio] 11.6 mg/mg Normal [facility] Comment on above: Performed By: #### C MP #### [facility] [address] [address] [address] Katharine Holden Psychiatry Adulton 3 Psychiatry Adult Orders Anxiety and depression Renew: buPROPion HCl ER (XL) 150 MG Oral Tablet Extended Release 24 Hour; TAKE 1 TABLET DAILY DIRECTED Anxiety disorder Renew: Sertraline HCl - 50 MG Oral Tablet; TAKE 1.5 TABLET BY MOUTH EVERY MORNING Provider Impressions IMP: 31 yo M w/ ADEN. MDE. PMH Hx of Infertility, now , Anxiety and Depression. Adopted a baby boy, Cornelius, now 21 months old, and delivered baby 06/19/2021 via unassisted conception. Stressors include recent of grandmother in Jan 2020, loss of other family in past few yrs. .PP after urgent CSX for baby girlTiti, on 06/19,. Denies psychologically traumatic, but painful at [facility] . INTERIM: Reduced Sertraline from 100 mg to 75 mg and remains on current dose of Wellbutrin 150mg XL x 2 ys. . Now at 11 months pp. Mood is 'going well ', denies SI/HI. Still gets anxious, but feeling more like herself .Also gets more irritable, impatient w/ and children do not sleep through night getting about 6-7 hours per night. Still BFing aiming for 6-7 month s. No new medication. Desiring to reduce Sertraline to 50 mg po qam. ANXIETY Self rates 6-. Since delivery some fears of dying and leaving her children, recently lost cousin of her same age, thinking about this once per day, working w/ therapist on this monthly. Discussed staying n same dose of SSRI for now and increasing frequency sessions w/ therapist. Review coping strategies, taking baths, walking, being in nature. 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 Verbal consent was requested and obtained from EJSSICA GYJUAN MANUEL on this date, 05/25/2022 02:30 PM , for a telehealth visit. Active Problems Problems Anxiety and depression (300.00,311) (F41.9,F32.A) Anxiety disorder (300.00) (F41.9) Class 1 obesity with body mass index (BMI) of 30.0 to 30.9 in adult (278.00,V85.30) (E66.9,Z68.30) Dysmenorrhea (625.3) (N94.6) Encounter to determine viability of , single or unspecified fetus (V23.87) (O36.80X0) Endometriosis (617.9) (N80.9) Female infertility (628.9) (N97.9) Fertility testing (V26.21) (Z31.41) Neurocardiogenic pre-syncope (780.2) (R55) Never a smoker Pelvic floor dysfunction (618.83) (M62.89) Pelvic floor tension (597.81) (M62.89) Positive test (V72.42) (Z32.01) Routine screening for STI (sexually transmitted infection) (V74.5) (Z11.3) Past Medical History Problems History of Unconfirmed (V72.40) (Z32.00) Resolved Date: 30 Jul 2020 Surgical History Problems History of section History of Complete colonoscopy History of Ear pressure equalization tube insertion History of Tonsillectomy with adenoidectomy Family History Mother No pertinent family history Father No pertinent family history Grandparent Family history of diabetes mellitus (V18.0) (Z83.3) Grandmother FH: CABG (coronary artery bypass surgery) (V17.3) (Z82.49) FH: colon cancer (V16.0) (Z80.0) Family history of TIA (transient ischemic attack) Social History Problems Alcohol use (V49.89) (Z78.9) socially Caffeine use (V49.89) (Z78.9) 1 cup daily Never a smoker No illicit drug use Allergies Medication Advil Cold AND Sinus Liqui-Gels CAPS Hives;; Recorded By: Lorenza Haley; 07/22/2021 4:42:24 PM Augmentin Hives;; Updated By: Lorenza Haley; 07/22/2021 4:42:24 PM Ceclor CAPS Hives;; Recorded By: Lorenza Haley; 07/22/2021 4:42:24 PM Omnicef CAPS Hives;; Recorded By: Lorenza Haley; 07/22/2021 4:42:24 PM Sulfa Drugs Hives;; Recorded By: Lorenza Haley; 07/22/2021 4:42:24 PM Zithromax Hives;; Recorded By: Lorenza Haley; 07/22/2021 4:42:24 PM amoxicillin Recorded By: Janie Talamantes; 12/27/2019 3:13:57 PM Bactrim Recorded By: Janie Talamantes; 12/27/2019 3:13:57 PM doxycycline Recorded By: Janie Talamantes; 12/27/2019 3:13:57 PM Sulfonamide Derivatives Recorded By: Janie Talamantes; 12/27/2019 3:13:57 PM Current Meds Medication NameInstruction buPROPion HCl ER (XL) 150 MG Oral Tablet Extended Release 24 HourTAKE 1 TABLET DAILY DIRECTED. 19 Oral Tablet Sertraline HCl - 100 MG Oral TabletTAKE 1 TABLET BY MOUTH EVERY MORNING WITH A MEAL Sertraline HCl - 25 MG Oral Tablettake 1 tab qd as directed Sertraline HCl - 50 MG Oral TabletTAKE 1.5 TABLET BY MOUTH EVERY MORNING Mental Status Exam General: Appropriately groomed and dressed Appearance: Appears stated age Attitude: Calm, cooperative Behavior: Appropriate eye contact. Motor Activity: No agitation or retarda (more content not included)... Normal [facility] Head or Brain w/o Contras t*on 03-11-2022 CT Head or Brain w/o Contrast* CLINICAL HISTORY: Headaches and nausea after recent head trauma. COMPARISON: None available. TECHNIQUE: Routine. All CT scans at this facility use dose modulation, iterative reconstruction, and/or weight based dosing when appropriate to reduce radiation dose to as low as reasonably achievable. FINDINGS: There is no intracranial hemorrhage, mass effect, midline shift, extra-axial collection, evidence of hydrocephalus, skull fracture, or a recent ischemic infarct identified. There is no significant atrophy, or white matter changes, for age. Moderate fluid and mucosal thickening is present within the right maxillary sinus, mild fluid within the left maxillary sinus, and opacification of the left frontal sinus and some ethmoid air cells. The mastoid air cells and sphenoid sinuses are essentially clear. IMPRESSION: NO ACUTE INTRACRANIAL PROCESS IDENTIFIED. PARANASAL SINUS OPACIFICATION AND FLUID, NOTED. Report reported and signed by Juan Antonio Pagan on 03/11/2022 1809 Normal [facility] [place] Psych[facility] Adulton 3 Psychiatry Adult Diagnoses/Problems Assessed Anxiety disorder (300.00) (F41.9) Orders Anxiety disorder Start: Sertraline HCl - 50 MG Oral Tablet; TAKE 1.5 TABLET BY MOUTH EVERY MORNING Provider Impressions IMP: 31 yo M w/ ADEN. MDE. PMH Hx of Infertility, now , Anxiety and Depression. Adopted a baby boy, Cornelius, now 21 months old, and delivered baby 06/19/2021 via unassisted conception. Stressors include recent of grandmother in Jan 2020, loss of other family in past few yrs. .PP after urgent CSX for baby girlTiti, on 06/19,. Denies psychologically traumatic, but painful at [facility] . INTERIM: Now at 4 month pp. No new medical issues, had COVID , and managed. Still BFing noting baby experiencing mild increased anxiety, sleeping well . Reduced Sertraline fro m100 mg to 75 mg and remains on current dose of Wellbutrin 150mg XL. Mood is doing pretty well, less tired, less fogginess, better than last time, therapist noted looking better. still has issues concentrating no increased anxiety, les anxious, Sleep is improving, discussed increasing Wellbutrin to 300m XL po qam. Went o [place] over holiday break. Sees Prerna Forde [facility] .Jack. 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 Verbal consent was requested and obtained from JESSICA GYSAIrvin on this date, 03/03/2022 01:00 PM , for a telehealth visit. Active Problems Problems Anxiety and depression (300.00,311) (F41.9,F32.A) Anxiety disorder (300.00) (F41.9) Class 1 obesity with body mass index (BMI) of 30.0 to 30.9 in adult (278.00,V85.30) (E66.9,Z68.30) Dysmenorrhea (625.3) (N94.6) Encounter to determine viability of , single or unspecified fetus (V23.87) (O36.80X0) Endometriosis (617.9) (N80.9) Female infertility (628.9) (N97.9) Fertility testing (V26.21) (Z31.41) Neurocardiogenic pre-syncope (780.2) (R55) Never a smoker Pelvic floor dysfunction (618.83) (M62.89) Pelvic floor tension (597.81) (M62.89) Positive test (V72.42) (Z32.01) Routine screening for STI (sexually transmitted infection) (V74.5) (Z11.3) Past Medical History Problems History of Unconfirmed (V72.40) (Z32.00) Resolved Date: 30 Jul 2020 Surgical History Problems History of section History of Complete colonoscopy History of Ear pressure equalization tube insertion History of Tonsillectomy with adenoidectomy Family History Mother No pertinent family history Father No pertinent family history Grandparent Family history of diabetes mellitus (V18.0) (Z83.3) Grandmother FH: CABG (coronary artery bypass surgery) (V17.3) (Z82.49) FH: colon cancer (V16.0) (Z80.0) Family history of TIA (transient ischemic attack) Social History Problems Alcohol use (V49.89) (Z78.9) socially Caffeine use (V49.89) (Z78.9) 1 cup daily Never a smoker No illicit drug use Allergies Medication Advil Cold AND Sinus Liqui-Gels CAPS Hives;; Recorded By: Lorenza Haley; 07/22/2021 4:42:24 PM Augmentin Hives;; Updated By: Lorenza Haley; 07/22/2021 4:42:24 PM Ceclor CAPS Hives;; Recorded By: Lorenza Haley; 07/22/2021 4:42:24 PM Omnicef CAPS Hives;; Recorded By: Lorenza Haley; 07/22/2021 4:42:24 PM Sulfa Drugs Hives;; Recorded By: Lorenza Haley; 07/22/2021 4:42:24 PM Zithromax Hives;; Recorded By: Lorenza Haley; 07/22/2021 4:42:24 PM amoxicillin Recorded By: Janie Talamantes; 12/27/2019 3:13:57 PM Bactrim Recorded By: Janie Talamantes; 12/27/2019 3:13:57 PM doxycycline Recorded By: Janie Talamantes; 12/27/2019 3:13:57 PM Sulfonamide Derivatives Recorded By: Janie Talamantes; 12/27/2019 3:13:57 PM Current Meds Medication NameInstruction buPROPion HCl ER (XL) 150 MG Oral Tablet Extended Release 24 HourTAKE 1 TABLET DAILY DIRECTED. 19 Oral Tablet Sertraline HCl - 100 MG Oral TabletTAKE 1 TABLET BY MOUTH EVERY MORNING WITH A MEAL Sertraline HCl - 25 MG Oral Tablettake 1 tab qd as directed Mental Status Exam General: Appropriately groomed and dressed Appearance: Appears stated age Attitude: Calm, cooperative Behavior: Appropriate eye contact. Motor Activity: No agitation or retardation. No EPS/TD. Normal gait and station. Speech: Regular rate, rhythm, volume and tone, spontaneous, fluent. Mood: Euthymic Affect: Appropriate with full range Thought Process: Organized, linear, goal directed. Associations are logical. Thought Content: Does not endorse suicidal or homicidal ideation, no delusions elicited. Thought Perception: Does not endors (more content not included)... Normal [facility] Psychiatry Adulton 2 Psychiatry Adult Diagnoses/Problems Assessed Anxiety and depression (300.00,311) (F41.9,F32.A) Orders Anxiety and depression Start: Sertraline HCl - 25 MG Oral Tablet; take 1 tab qd as directed Renew: buPROPion HCl ER (XL) 150 MG Oral Tablet Extended Release 24 Hour; TAKE 1 TABLET DAILY DIRECTED Provider Impressions IMP: 31 yo M w/ ADEN. MDE. PMH Hx of Infertility, now , Anxiety and Depression. Adopted a baby boy, Cornelius, now 21 months old, and delivered baby 06/19/2021 via unassisted conception. Stressors include recent of grandmother in Jan 2020, loss of other family in past few yrs. . Interim: Taking Sertraline to 100mg and Wellbutrin 150 mg XL. PP after urgent CSX for baby girl, Titi, on 06/19,. Denies psychologically traumatic, but painful at [facility].Now 7 month pp. Feeling like Zombie since increased SSRI ie cannot concentration, since onset in September/Oct, at that time started new job x 3 months, hard to adjust. 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 Endorsing depressed mood, low motivation, socially, isolated. No SI/HI Childcare is home daycare by sitting by mother. Seeing therapist q 2-3 weeks. Depression self rates 5/10 and anxiety 8/10. Sleep every 3 hours for 6-7 hours, per night. Discussed r/b/a for decreasing SRRI and keeping Wellbutrin same for now. If no change will increase Wellbutrin to 300mg XL po qam to target mood, concentration, ,etc. 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 Verbal consent was requested and obtained from JESSICA VALDEZ on this date, 01/26/2022 01:00 PM , for a telehealth visit. Active Problems Problems Anxiety and depression (300.00,311) (F41.9,F32.A) Anxiety disorder (300.00) (F41.9) Class 1 obesity with body mass index (BMI) of 30.0 to 30.9 in adult (278.00,V85.30) (E66.9,Z68.30) Dysmenorrhea (625.3) (N94.6) Encounter to determine viability of , single or unspecified fetus (V23.87) (O36.80X0) Endometriosis (617.9) (N80.9) Female infertility (628.9) (N97.9) Fertility testing (V26.21) (Z31.41) Neurocardiogenic pre-syncope (780.2) (R55) Never a smoker Pelvic floor dysfunction (618.83) (M62.89) Pelvic floor tension (597.81) (M62.89) Positive test (V72.42) (Z32.01) Routine screening for STI (sexually transmitted infection) (V74.5) (Z11.3) Past Medical History Problems History of Unconfirmed (V72.40) (Z32.00) Resolved Date: 30 Jul 2020 Surgical History Problems History of section History of Complete colonoscopy History of Ear pressure equalization tube insertion History of Tonsillectomy with adenoidectomy Family History Mother No pertinent family history Father No pertinent family history Grandparent Family history of diabetes mellitus (V18.0) (Z83.3) Grandmother FH: CABG (coronary artery bypass surgery) (V17.3) (Z82.49) FH: colon cancer (V16.0) (Z80.0) Family history of TIA (transient ischemic attack) Social History Problems Alcohol use (V49.89) (Z78.9) socially Caffeine use (V49.89) (Z78.9) 1 cup daily Never a smoker No illicit drug use Allergies Medication Advil Cold AND Sinus Liqui-Gels CAPS Hives;; Recorded By: Lorenza Haley; 07/22/2021 4:42:24 PM Augmentin Hives;; Updated By: Lorenza Haley; 07/22/2021 4:42:24 PM Ceclor CAPS Hives;; Recorded By: Lorenza Haley; 07/22/2021 4:42:24 PM Omnicef CAPS Hives;; Recorded By: Lorenza Haley; 07/22/2021 4:42:24 PM Sulfa Drugs Hives;; Recorded By: Lorenza Haley; 07/22/2021 4:42:24 PM Zithromax Hives;; Recorded By: Lorenza Haley; 07/22/2021 4:42:24 PM amoxicillin Recorded By: Janie Talamantes; 12/27/2019 3:13:57 PM Bactrim Recorded By: Janie Talamantes; 12/27/2019 3:13:57 PM doxycycline Recorded By: Janie Talamantes; 12/27/2019 3:13:57 PM Sulfonamide Derivatives Recorded By: Janie Talamantes; 12/27/2019 3:13:57 PM Current Meds Medication NameInstruction buPROPion HCl ER (XL) 150 MG Oral Tablet Extended Release 24 HourTAKE 1 TABLET DAILY DIRECTED. 19 Oral Tablet Sertraline HCl - 100 MG Oral TabletTAKE 1 TABLET BY MOUTH EVERY MORNING WITH A MEAL Mental Status Exam General: Appropriately groomed and dressed Appearance: Appears stated age Attitude: Calm, cooperative Behavior: Appropriate eye contact. Motor Activity: No agitation or retardation. No EPS/TD. Normal gait and station. Speech: Regular rate, rhythm, volume and tone, spontaneous, fluent. Mood: mild anxiety , depressed mood. Affect: Appropriate with full range (more content not included)... Normal [employer] Basophils Auto (Bld) [#/Vol] Ordered By: Bakari Escalera on 09-25-2021 Basophils (Bld) [#/Vol] 0.0 10*3/uL 0.0-0.2 [facility] Basophils/100 WBC Auto (Bld) Ordered By: Bakari Escalera on 09-25-2021 Basophils/100 WBC (Bld) 0.5 % . [facility] Blood hemoglobin measurement (mass/volume)Ordered By: Bakari Escalera on 09-25-2021 Hemoglobin (Bld) [Mass/Vol] 13.0 g/dL 11.8-15.4 [facility] Blood leukocytes automated c ount (number/volume)Ordered By: Bakari Escalera on 09-25-2021 WBC (Bld) [#/Vol] 5.8 10*3/uL 4.5-11.0 [facility] Body fluid albumin measureme nt (mass/volume)Ordered By: Bakari Escalera on 09-25-2021 Albumin (Body fld) [Mass/Vol] 3.9 g/dL 3.2-5.5 [facility] Creatinine and Glomerular fi ltration rate.predicted panel (S/P/Bld)Ordered By: Bakari Escalera on 09-25-2021 Creatinine [Mass/Vol] 0.84 mg/dL 0.44-1.03 [facility] Eosinophils Auto (Bld) [#/Vo l]Ordered By: Bakari Escalera on 09-25-2021 Eosinophils (Bld) [#/Vol] 0.0 10*3/uL 0.0-0.45 [facility] Eosinophils/100 WBC Auto (Bl d)Ordered By: Bakari Escalera on 09-25-2021 Eosinophils/100 WBC (Bld) 0.8 % . [facility] Erythrocyte distribution wid th Auto (RBC) [Ratio]Ordered By: Bakari Escalera on 09-25-2021 Erythrocyte distribution width (RBC) [Ratio] 13.3 % 11.9-15.3 [facility] Estimated glomerular filtrat ion rate (GFR) non- AmericanOrdered By: Bakari Escalera on 09-25-2021 GFR/1.73 sq M.predicted among non-blacks MDRD (S/P/Bld) [Vol rate/Area] > 60 mL/Min [facility] Globulin Calc (S) [Mass/Vol] Ordered By: Bakari Escalera on 09-25-2021 Globulin (S) [Mass/Vol] 2.4 g/dL [facility] Hematocrit Auto (Bld) [Volum e fraction]Ordered By: Bakari Escalera on 09-25-2021 Hematocrit (Bld) [Volume fraction] 40.4 % 34.0-46.4 [facility] Laboratory - Hematology and Cell countsOrdered By: Bakari Escalera on 09-25-2021 Nucleated RBC/100 WBC (Bld) [Ratio] 0.0 % 0-0.5 [facility] Lymphocytes Auto (Bld) [#/Vo l]Ordered By: Bakari Escalera on 09-25-2021 Lymphocytes (Bld) [#/Vol] 1.9 10*3/uL 1.00-4.8 [facility] Lymphocytes/100 WBC Auto (Bl d)Ordered By: Bakari Escalera on 09-25-2021 Lymphocytes/100 WBC (Bld) 33.3 % . [facility] MCH Auto (RBC) [Entitic mass ]Ordered By: Bakari Escalera on 09-25-2021 MCH (RBC) [Entitic mass] 28.4 pg 24.7-34.3 [facility] MCHC Auto (RBC) [Mass/Vol]Or dered By: Bakari Escalera on 09-25-2021 MCHC (RBC) [Mass/Vol] 32.0 g/dL 32.0-35.0 [facility] MCV Auto (RBC) [Entitic vol] Ordered By: Bakari Escalera on 09-25-2021 MCV (RBC) [Entitic vol] 88.8 fL 80-100 [facility] Monocytes Auto (Bld) [#/Vol] Ordered By: Bakari Escalera on 09-25-2021 Monocytes (Bld) [#/Vol] 0.4 10*3/uL 0.0-0.8 [facility] Monocytes/100 WBC Auto (Bld) Ordered By: Bakari Escalera on 09-25-2021 Monocytes/100 WBC (Bld) 6.3 % . [facility] Neutrophils Auto (Bld) [#/Vo l]Ordered By: Bakari Escalera on 09-25-2021 Neutrophils (Bld) [#/Vol] 3.4 10*3/uL 1.8-7.7 [facility] Neutrophils/100 WBC Auto (Bl d)Ordered By: Bakari Escalera on 09-25-2021 Neutrophils/100 WBC (Bld) 59.1 % . [facility] No Panel InformationOrdered By: Bakari Escalera on 09-25-2021 Estimated GFR () > 60 mL/Min [facility] Comment on above: GFR estimated refere nce range: According to KDOQI guidelines, <60 ml/min/1.73m2 is sufficient to diagnose a patient with chronic kidney disease. Pharmacy Creatinine Clearance (Chem N/A [facility] Platelet mean volume Auto (B ld) [Entitic vol]Ordered By: Bakari Escalera on 09-25-2021 Platelet mean volume (Bld) [Entitic vol] 8.5 fL 6.3-10.7 [facility] Platelets Auto (Bld) [#/Vol] Ordered By: Bakari Escalera on 09-25-2021 Platelets (Bld) [#/Vol] 282 10*3/uL 150-450 [facility] Protein [Mass/volume] in Ser um or PlasmaOrdered By: Bakari Escalera on 09-25-2021 Protein [Mass/Vol] 6.3 g/dL 6.1-7.9 [facility] RBC Auto (Bld) [#/Vol]Ordere d By: Bakari Escalera on 09-25-2021 RBC (Bld) [#/Vol] 4.56 10*6/uL 3.60-5.00 [facility] Serum or plasma alanine moore otransferase measurement without P-5'-P (enzymatic activiOrdered By: Bakari Escalera on 09-25-2021 ALT No additional P-5'-P [Catalytic activity/Vol] 15 U/L 10-60 [facility] Serum or plasma albumin/glob ulin mass ratioOrdered By: Bakari Escalera on 09-25-2021 Albumin/Globulin [Mass ratio] 1.6 {ratio} [facility] Serum or plasma alkaline shady sphatase measurement (enzymatic activity/volume)Ordered By: Bakari Escalera on 09-25-2021 ALP [Catalytic activity/Vol] 63 U/L 32-92 [facility] Serum or plasma aspartate am inotransferase measurement (enzymatic activity/volume)Ordered By: Bakari Escalera on 09-25-2021 AST [Catalytic activity/Vol] 16 U/L 10-42 [facility] Serum or plasma calcium gabi urement (mass/volume)Ordered By: Bakari Escalera on 09-25-2021 Calcium [Mass/Vol] 9.9 mg/dL 8.2-10.2 [facility] Serum or plasma chloride nicolas surement (moles/volume)Ordered By: Bakari Escalera on 09-25-2021 Chloride [Moles/Vol] 103 mmol/L 95-114 [facility] Serum or plasma glucose gabi urement (mass/volume)Ordered By: Bakari Escalera on 09-25-2021 Glucose [Mass/Vol] 81 mg/dL 70-100 [facility] Comment on above: ADA recommended refe rence range Random Glucose Reference Range is dependent on time and content of last meal. Glucose of more than 200 mg/dL in a nonstressed, ambulatory subject supports the diagnosis of Diabetes Mellitus. Serum or plasma potassium me asurement (moles/volume)Ordered By: Bakari Escalera on 09-25-2021 Potassium [Moles/Vol] 4.7 mmol/L 3.5-5.1 [facility] Serum or plasma sodium measu rement (moles/volume)Ordered By: Bakari Escalera on 09-25-2021 Sodium [Moles/Vol] 138 mmol/L 136-146 [facility] Serum or plasma total biliru bin measurement (mass/volume)Ordered By: Bakari Escalera on 09-25-2021 Bilirubin [Mass/Vol] 0.5 mg/dL 0.3-1.2 [facility] Serum or plasma total carbon dioxide measurement (moles/volume)Ordered By: Bakari Escalera on 09-25-2021 CO2 [Moles/Vol] 29.8 mmol/L 22.0-30.0 [facility] Serum or plasma urea nitroge n measurement (mass/volume)Ordered By: Bakari Escalera on 09-25-2021 Urea nitrogen [Mass/Vol] 15 mg/dL 9-23 [facility] TSH DL <= 0.005 mIU/L QnOrde red By: Bakari Escalera on 09-25-2021 TSH Qn 1.07 m[IU]/L 0.45-5.33 [facility] Tobacco Screening.on 022 Tobacco use status CPHS b) No M [facility] [address] DO Work Phone: Tobacco Screening. Yes [facility] [address] DO Work Phone: CBC AUTO DIFFon 07-23-2021 BASO # 0.0 103/ul Normal 0.0-0.1 [facility] Comment on above: Performed By: #### C BC #### [facility] [address] [place] [address] Dr. Katharine Holden Basophils/100 WBC (Bld) 0.2 % Normal 0.2-2.0 [facility] Comment on above: Performed By: #### C BC #### [facility] [address] [place] [address] Dr. Katharine Holden EO # 0.0 103/ul Normal 0.0-0.7 [facility] Comment on above: Performed By: #### C BC #### [facility] [address] [place] [address] Dr. Katharine Holden Eosinophils/100 WBC (Bld) 0.3 % Critically low 0.9-7.0 [facility] Comment on above: Performed By: #### C BC #### [facility] [address] [place] [address] Dr. Katharine Holden Erythrocyte distribution width (RBC) [Ratio] 12.1 % Normal 11.0-15.0 [facility] Comment on above: Performed By: #### C BC #### [facility] [address] [place] [address] Dr. Katharine Holden Hematocrit (Bld) [Volume fraction] 41.6 % Normal 36.0-48.0 [facility] Comment on above: Performed By: #### C BC #### [facility] [address] [place] [address] Dr. Katharine Holden Hemoglobin (Bld) [Mass/Vol] 13.2 g/dL Normal 12.0-16.0 [facility] Comment on above: Performed By: #### C BC #### [facility] [address] [place] [address] Dr. Katharine Holden IG # 0.04 10e3/ul Critically high 0.00-0.03 [facility] Comment on above: Performed By: #### C BC #### [facility] [address] [place] [address] Dr. Katharine Holden IG % 0.4 % Normal 0.0-0.5 [facility] Comment on above: Performed By: #### C BC #### [facility] [address] [place] [address] Dr. Katharine Holden LYMPH # 0.9 103/ul Critically low 1.2-3.[address] [facility] Comment on above: Performed By: #### C BC #### [facility] [address] [place] [address] Dr. Katharine Holden Lymphocytes/100 WBC (Bld) 9.5 % Critically low 20.5-60.0 [facility] Comment on above: Performed By: #### C BC #### [facility] [address] [place] [address] Dr. Katharine Holden MANUAL DIFF REQ NO Normal [facility] Comment on above: Performed By: #### C BC #### [facility] [address] [place] [address] Dr. Katharine Holden MCH (RBC) [Entitic mass] 29.2 pg Normal 26.7-34.0 [facility] Comment on above: Performed By: #### C BC #### [facility] [address] [place] [address] Dr. Katharine Holden MCHC (RBC) [Mass/Vol] 31.7 g/dL Normal 29.9-35.2 [facility] Comment on above: Performed By: #### C BC #### [facility] [address] [place] [address] Dr. Katharine Holden MCV (RBC) [Entitic vol] 92.0 fL Normal 81.0-99.0 [facility] Comment on above: Performed By: #### C BC #### [facility] [address] [place] [address] Dr. Katharine Holden MONO # 0.6 103/ul Normal 0.3-0.8 [facility] Comment on above: Performed By: #### C BC #### [facility] [address] [place] [address] Dr. Katharine Holden Monocytes/100 WBC (Bld) 6.7 % Normal 1.7-12.0 [facility] Comment on above: Performed By: #### C BC #### [facility] [address] [place] [address] Dr. Katharine Holden NEUT # 7.9 103/ul Critically high 1.4-6.5 [facility] Comment on above: Performed By: #### C BC #### [facility] [address] [place] [address] Dr. Katharine Holden Neutrophils/100 WBC (Bld) 82.9 % Critically high 43.0-75.0 [facility] Comment on above: Performed By: #### C BC #### [facility] [address] [place] [address] Dr. Katharine Holden Platelet mean volume (Bld) [Entitic vol] 9.1 fL Critically low 9.5-13.5 [facility] Comment on above: Performed By: #### C BC #### [facility] [address] [place] [address] Dr. Katharine Holden PLT 269 103/ul Normal 150-450 [facility] Comment on above: Performed By: #### C BC #### [facility] [address] [place] [address] Dr. Katharine Holden RBC 4.52 106/ul Normal 4.20-5.40 [facility] Comment on above: Performed By: #### C BC #### [facility] [address] [place] [address] Dr. Katharine Holden WBC 9.6 103/ul Normal 4.0-11.0 [facility] Comment on above: Performed By: #### C BC #### [facility] [address] [place] [address] Dr. Katharine Holden Covid-19 PCR ([facility])on SARS-CoV-2 (COVID-19) RNA GABRIEL+probe Ql (Unsp spec) Not detected Normal NOT DETECTED [facility] Comment on above: Result Comment: When diagnostic testing is negative, the possibility of a false negative should be considered in the context of a patient's recent exposures and the presence of clinical signs and symptoms consistent with SARS-CoV-2. This test is not yet approved or cleared by the [place] FDA. When there are no FDA-approved or cleared tests available, and other criteria are met, FDA can make tests available under an emergency access mechanism called an Emergency Use Authorization (EUA). The EUA for this test is supported by the [place] of Health and Human Service's declaration that circumstances exist to justify the emergency use of in vitro diagnostics for the detection and/or diagnosis of the virus that causes COVID-19. This EUA will remain in effect for the duration of the COVID-19 declaration justifying emergency of IVDs, unless it is terminated or revoked by the FDA (after which the test may no longer be used). Performed By: #### C VDTB #### [facility] [address] [place] [address] Dr. Katharine Holden ER URINE PROFILEon 2 Bilirubin Ql (U) SMALL Abnormal NEGATIVE [facility] Comment on above: Performed By: #### THERESE ROCHARO #### [facility] [address] [place] [address] Dr. Katharine Holden Clarity (U) CLEAR Normal CLEAR [facility] Comment on above: Performed By: #### SHERRILL ROCHAICRO #### [facility] [address] [place] [address] Dr. Katharine Holden Color (U) YELLOW Normal YELLOW [facility] Comment on above: Performed By: #### Pat PÉREZ UMICRO #### [facility] [address] [place] [address] Dr. Katharine MENDOZA A micrscopic examination will be performed if indicated. Normal [facility] Comment on above: Performed By: #### SHERRILL ROCHAICRO #### [facility] [address] [place] [address] Dr. Katharine Holden Glucose Ql (U) Negative Normal NEGATIVE [facility] Comment on above: Performed By: #### Pat PÉREZ UMICRO #### [facility] [address] [place] [address] Dr. Katharine Holden Hemoglobin Ql (U) Negative Normal NEGATIVE [facility] Comment on above: Performed By: #### Pat PÉREZ UMICRO #### [facility] [address] [place] [address] Dr. Katharine Holden Ketones Ql (U) 40 mg/dl Abnormal NEGATIVE [facility] Comment on above: Performed By: #### Pat PÉREZ UMICRO #### [facility] [address] [place] [address] Dr. Katharine Holden LEUKOCYTES TRACE Abnormal NEGATIVE [facility] Comment on above: Performed By: #### Pat PÉREZ UMICRO #### [facility] [address] [place] [address] Dr. Katharine Holden Nitrite Ql (U) Negative Normal NEGATIVE [facility] Comment on above: Performed By: #### Pat PÉREZ UMICRO #### [facility] [address] [place] [address] Dr. Katharine Holden pH (U) 6.0 [pH] Normal 5-9 [facility] Comment on above: Performed By: #### Pat PÉREZ UMICRO #### [facility] [address] [place] [address] Dr. Katharine Holden SPEC GRAVITY 1.025 Normal 1.005-<=1.0 25 [facility] Comment on above: Performed By: #### Pat PÉREZ UMICRO #### [facility] [address] [place] [address] Dr. Katharine Holden UA PROTEIN Negative Normal NEGATIVE/ TRACE [facility] Comment on above: Performed By: #### Pat PÉREZ UMICRO #### [facility] [address] [place] [address] Dr. Katharine Holden UR MICRO IND INDICATED Normal [facility] Comment on above: Performed By: #### Pat PÉREZ UMICRO #### [facility] [address] [place] [address] Dr. Katharine Holden Urobilinogen Qn (U) 0.2 {Sabino'U}/dL Normal 0.2 - 1. 0 [facility] Comment on above: Performed By: #### E RUR, UMICRO #### [facility] [address] [place] [address] Dr. Katharine Holden INFLUENZA A AND B AGon 07-23 INFLUANEGH SEE BELOW Normal [facility] Comment on above: Result Comment: Nega tive for Flu A protein angiten. Infection due to Flu A cannot be ruled out. Flu A angiten in the sample may be below the detection limit of the test. Performed By: #### I NFLUAB #### [facility] [address] [place] [address] Dr. Katharine Holden INFLUBNEGH SEE BELOW Normal [facility] Comment on above: Result Comment: Nega tive for Flu B protein antigen. Infection due to Flu B cannot be ruled out. Flu B antigen in the sample may be below the detection limit of the test. Performed By: #### I NFLUAB #### [facility] [address] [place] [address] Dr. Katharine Holden INFLUENZA A AG Negative Normal NEGATIVE SEE COMMENT [facility] Comment on above: Performed By: #### I NFLUAB #### [facility] [address] [place] [address] Dr. Katharine Holden INFLUENZA B AG Negative Normal NEGATIVE SEE COMMENT [facility] Comment on above: Performed By: #### I NFLUAB #### [facility] [address] [place] [address] Dr. Katharine Holden INTERNAL CONTROLS Within Normal Limits Normal Wi thin Normal Limits [facility] Comment on above: Performed By: #### I NFLUAB #### [facility] [address] [place] [address] Dr. Katharine Holden LACTATE/LACTIC ACIDon 2021 Lactate [Moles/Vol] 0.7 mmol/L Normal 0.4-1.9 [facility] Comment on above: Performed By: #### C MP, LIPA #### [facility] [address] [place] [address] Dr. Katharine Holden LIPASEon 07-23-2021 Lipase [Catalytic activity/Vol] 61.0 U/L Critically low 73.0-393.0 [facility] Comment on above: Performed By: #### C MP, LIPA #### [facility] [address] [place] [address] Dr. Katharine Holden PROF 14(COMP METB)on 022 Albumin [Mass/Vol] 3.7 g/dL Normal 3.4-5.0 [facility] Comment on above: Performed By: #### C MP, LIPA #### [facility] [address] [place] [address] Dr. Katharine Holden Albumin/Globulin [Mass ratio] 1.0 {ratio} Normal [facility] Comment on above: Performed By: #### C MP, LIPA #### [facility] [address] [place] [address] Dr. Katharine Holden ALP [Catalytic activity/Vol] 101 U/L Normal 46-116 [facility] Comment on above: Performed By: #### C MP, LIPA #### [facility] [address] [place] [address] Dr. Katharine Holden ALT [Catalytic activity/Vol] 24 U/L Normal 14-59 [facility] Comment on above: Performed By: #### C MP, LIPA #### [facility] [address] [place] [address] Dr. Katharine Holden Anion gap [Moles/Vol] 14.7 mmol/L Normal [facility] Comment on above: Performed By: #### C MP, LIPA #### [facility] [address] [place] [address] Dr. Katharine Holden AST [Catalytic activity/Vol] 14 U/L Critically low 15-37 [facility] Comment on above: Performed By: #### C MP, LIPA #### [facility] [address] [place] [address] Dr. Katharine Holden Bilirubin [Mass/Vol] 0.6 mg/dL Normal 0.2-1.0 [facility] Comment on above: Performed By: #### C MP, LIPA #### [facility] [address] [place] [address] Dr. Katharine Holden Calcium [Mass/Vol] 8.6 mg/dL Normal 8.5-10.1 [facility] Comment on above: Performed By: #### C MP, LIPA #### [facility] [address] [place] [address] Dr. Katharine Holden Chloride [Moles/Vol] 102 mmol/L Normal 98-107 [facility] Comment on above: Performed By: #### C MP, LIPA #### [facility] [address] [place] [address] Dr. Katharine Holden CO2 [Moles/Vol] 24.2 mmol/L Normal 21.0-32.0 [facility] Comment on above: Performed By: #### C MP, LIPA #### [facility] [address] [place] [address] Dr. Katharine Holden Creatinine [Mass/Vol] 0.95 mg/dL Normal 0.55-1.02 [facility] Comment on above: Performed By: #### C MP, LIPA #### [facility] [address] [place] [address] Dr. Katharine Holden EGFR-AF BURUNDIAN >60 Normal >=60 [facility] Comment on above: Performed By: #### C MP, LIPA #### [facility] [address] [place] [address] Dr. Katharine Holden EGFR-NON AF BURUNDIAN >60 Normal >=60 [facility] Comment on above: Performed By: #### C MP, LIPA #### [facility] [address] [place] [address] Dr. Katharine Holden Globulin (S) [Mass/Vol] 3.8 g/dL Normal [facility] Comment on above: Performed By: #### C MP, LIPA #### [facility] [address] [place] [address] Dr. Katharine Holden Glucose [Mass/Vol] 105 mg/dL Normal 74-106 [facility] Comment on above: Performed By: #### C MP, LIPA #### [facility] [address] [place] [address] Dr. Katharine Holden Potassium [Moles/Vol] 3.9 mmol/L Normal 3.5-5.1 [facility] Comment on above: Performed By: #### C SHOAIB, LIPA #### [facility] [address] [place] [address] Dr. Katharine Holden Protein [Mass/Vol] 7.5 g/dL Normal 6.4-8.2 [facility] Comment on above: Performed By: #### C SHOAIB, LIPA #### [facility] [address] [place] [address] Dr. Katharine Holden Sodium [Moles/Vol] 137 mmol/L Normal 136-145 [facility] Comment on above: Performed By: #### C SHOAIB, LIPA #### [facility] [address] [place] [address] Dr. Katharine oHlden Urea nitrogen [Mass/Vol] 20.0 mg/dL Critically high 7.0-18.0 [facility] Comment on above: Performed By: #### C SHOAIB, LIPA #### [facility] [address] [place] [address] Dr. Katharine Holden Urea nitrogen/Creatinine [Mass ratio] 21.1 mg/mg Normal [facility] Comment on above: Performed By: #### C SHOAIB, LIPA #### [facility] [address] [place] [address] Dr. Katharine Holden URINE MICROSCOPIC ONLYon BACTERIA TRACE Abnormal NONE SEEN [facility] Comment on above: Performed By: #### THERESE ROCHARO #### [facility] [address] [place] [address] Dr. Katharine Holden Bacteria identified Cx Nom (U) NOT INDICATED Normal [facility] Comment on above: Performed By: #### Pat PÉREZ UMICRO #### [facility] [address] [place] [address] Dr. Katharine Holden CAST NONE SEEN Normal NONE SEEN [facility] Comment on above: Performed By: #### Pat PÉREZ UMICRO #### [facility] [address] [place] [address] Dr. Katharine Holden Crystals LM Nom (Urine sed) NONE SEEN Normal NONE SEEN [facility] Comment on above: Performed By: #### E RUR, UMICRO #### [facility] [address] [address] [address] Katharine Holden Epithelial cells LM Ql (Urine sed) NONE SEEN Normal NONE SEEN /RARE [facility] Comment on above: Performed By: #### E RUR, UMICRO #### [facility] [address] [address] [address] Katharine Holden MUCOUS SMALL Abnormal NONE SEEN [facility] Comment on above: Performed By: #### E RUR, UMICRO #### [facility] [address] [address] [address] Katharine Holden RBC NONE SEEN Abnormal 0-2 [facility] Comment on above: Performed By: #### E RUR, UMICRO #### [facility] [address] [address] [address] Katharine Holden WBC 0-2 Abnormal NONE SEEN [facility] Comment on above: Performed By: #### E RUR, UMICRO #### [facility] [address] [address] [address] Katharine Holden Hematocriton 08-29-2020 Hematocrit (Bld) [Volume fraction] 41.9 % See Below EN-ERUCC-Lze man 310 IVF Work Phone: Comment on above: Reference Range: 36. 0 - 46.0 Progesterone, Serumon 2020 Progesterone [Mass/Vol] 1.6 ng/mL [facility] Work Phone: Comment on above: Progesterone is perf ormed using the [employer] Access Immunoassay. Progesterone testing is performed using a different test methodology at [facility] than other [facility]. Direct result comparison should only be made within the same method.REF VALUESMALE <0.2-0.8 FOLLICULAR PHASE <0.2-1.5 LUTEAL PHASE 7.4-15.4 POSTMENOPAUSAL <0.2-0.2 1ST TRIMESTER 12.0-84.0 2ND TRIMESTER 10.2-58.8 3RD TRIMESTER 46.5-160 HCG, Beta Quantitativeon HCG.beta subunit Qn 2 m[IU]/mL MG-Ps ychiatr -[facility]ella 201B DO Work Phone: Comment on above: Low-level positive H CG results can be seen in early , in fiona- or post-menopausal females due to normal pituitary HCG production, or with analytic interference. Repeat testing in 48-72 hours can aid in assessing for as results should double in this time period. FSH measurement is recommended in fiona- or post-menopausal females as concurrent elevation of FSH can support pituitary production as the source of the HCG elevation.. Total HCG measurement is performed using the [employer] Access Immunoassay which detects intact HCG and free beta HCG subunit. This test is not indicated for use as a tumor marker. HCG testing is performed using a different test methodology at [facility] than other [facility]. Direct result comparison should only be made within the same method. REF VALUESNON FEMALE <5MALES <5 Progesterone, Serumon 2020 Progesterone [Mass/Vol] 5.5 ng/mL M [facility] DO Work Phone: Comment on above: Progesterone is perf ormed using the [employer] [place] Access Immunoassay. Progesterone testing is performed using a different test methodology at [facility] than other [facility]. Direct result comparison should only be made within the same method.REF VALUESMALE <0.2-0.8 FOLLICULAR PHASE <0.2-1.5 LUTEAL PHASE 7.4-15.4 POSTMENOPAUSAL <0.2-0.2 1ST TRIMESTER 12.0-84.0 2ND TRIMESTER 10.2-58.8 3RD TRIMESTER 46.5-160 Estradiol, Serumon 0 E2 [Mass/Vol] 557 pg/mL MG-OBGYN-Ri s man 310 IVF Work Phone: Comment on above: Estradiol measuremen t is performed using the [employer] Access Sensitive Estradiol Immunoassay. Estradiol testing is performed using a different test methodology at [facility] than other [facility]. Direct result comparison should only be made within the same method.REF VALUESEARLY FOLLICULAR 22-115MID FOLLICULAR 25-115OVULATORY PEAK 32-517MID LUTEAL 37-246POSTMENOPAUSE <15- 25MALE <15- 32 Estradiol, Serumon 0 E2 [Mass/Vol] 204 pg/mL MG-OBGYN-Ri s man 310 IVF Work Phone: Comment on above: Estradiol measuremen t is performed using the [employer] Access Sensitive Estradiol Immunoassay. Estradiol testing is performed using a different test methodology at [facility] than other [facility]. Direct result comparison should only be made within the same method.REF VALUESEARLY FOLLICULAR 22-115MID FOLLICULAR 25-115OVULATORY PEAK 32-517MID LUTEAL 37-246POSTMENOPAUSE <15- 25MALE <15- 32 Estradiol, Serumon 0 E2 [Mass/Vol] 36 pg/mL MG-OBGYN-Jaquelin s man 310 IVF Work Phone: Comment on above: Estradiol measuremen t is performed using the [employer] [place] Access Sensitive Estradiol Immunoassay. Estradiol testing is performed using a different test methodology at [facility] than other [facility]. Direct result comparison should only be made within the same method.REF VALUESEARLY FOLLICULAR 22-115MID FOLLICULAR 25-115OVULATORY PEAK 32-517MID LUTEAL 37-246POSTMENOPAUSE <15- 25MALE <15- 32 [facility] Department Name JESSICA VALDEZ Pathologist: KAYLEIGH MOLINA MD Date of Procedure: 11/14/2019 Date Received: 11/14/2019 Date Reported 11/15/2019 Submitting Physician: SHAILA CONLEY MD Location: [facility] External # FINAL DIAGNOSIS A. LEFT PELVIC SIDEWALL: -- FRAGMENT OF FIBROADIPOSE AND FIBROCONNECTIVE TISSUE WITH FOCAL FEATURES SUGGESTIVE OF ENDOMETRIOSIS. B. LEFT PELVIC SIDEWALL: -- FRAGMENTS OF FIBROADIPOSE AND FIBROCONNECTIVE TISSUE WITH NO SIGNIFICANT PATHOLOGICAL FINDINGS. Electronically Signed Out By KAYLEIGH MOLINA MD/[facility] By the signature on this report, the individual or group listed as making the Final Interpretation/Diagnosi s certifies that they have reviewed this case. Clinical History: Pelvic pain, endometriosis Specimens Submitted As: A: LEFT PELVIC SIDEWALL B: LEFT PELVIC SIDEWALL Gross Description: A. Received in formalin, labeled with the patient's name, hospital number, and A. Left pelvic sidewall , is a pink-charlton, irregular, soft tissue segment measuring approximately 0.6 x 0.4 x 0.4 cm. The specimen is entirely submitted in one cassette. SHERI Robertson. Received in formalin, labeled with the patient's name, hospital number, and B. Left pelvic sidewall , is a pink charlton, irregular, soft tissue segment, measuring approximately 0.9 x 0.6 x 0.3 cm. The specimen is entirely submitted in one cassette. SHERI kls/11/14/2019 [facility] Department of Pathology [address] [place] [address] Normal [facility] Comment on above: Performed By: #### A #### [facility] [address] [place] [address] History and Physical - Surge ry > 30 dayson 11-14-2019 History and Physical - Surgery > 30 days History of Present Illness: /Lactating: Are You no Are You Currently Breastfeedingno History Present Illness: Reason for surgery: Dysmenorrhea HPI: Jessica Valdez is a 29 yo with secondary infertility, dysmenorrhea and concern for endometriosis. Have attempted multiple IVF cycles. Plan to proceed for laparoscopic excision of endometriosis, chromopertubation, diagnostic hysteroscopy and other procedures as indicated. Patient was last seen by Dr. Conley in 08/2019 (see aEMR). PMH: POTS, IBS, anxiety, liver adenoma, uterine polyps PSH: tonsillectomy, tubes in ears, wisdom teeth extraction, colonoscopy, hysteroscopy, 3 IVF retrievals Allergies: None Home Medication Review: Home Medications Reviewed: yes Impression/Procedure: Impression and Planned Procedure: Jessica Valdez is a 29 yo with secondary infertility, dysmenorrhea and concern for endometriosis. Have attempted multiple IVF cycles. Plan to proceed for laparoscopic excision of endometriosis, chromopertubation, diagnostic hysteroscopy and other procedures as indicated. Physical Exam by System: Constitutional: Well appearing female in no distress Head/Neck: Normocephalic Respiratory/Thorax: Unlabored breathing Cardiovascular: Well perfused Gastrointestinal: Abdomen soft, nondistended, non tender Extremities: No edema and without any cyanosis Neurological: Grossly intact Psychological: Normal affect Skin: No lesions Consent: COVID-19 Consent: COVID-19 Risk ConsentSurgeon has reviewed leija risks related to the risk of ben COVID-19 and if they contract COVID-19 what the risks are. Signatures/Attestation: Note Completion: I am a: Resident/Fellow Attending AttestationI saw and evaluated the patient. I personally obtained the leija and critical portions of the history and physical exam or was physically present for leija and critical portions performed by the resident/fellow. I reviewed the resident/fellows documentation and discussed the patient with the resident/fellow. I agree with the resident/fellows medical decision making as documented in the note. I personally evaluated the patient [id number] Attending Provider Inpatient Certification StatementObservation patient/other outpatient visits Electronic Signatures: Shaila Fink (Fellow)) (Signed 13-Nov-2019 18:39) Authored: History of Present Illness, Home Medication Review, Impression/Procedure, Physical Exam, Consent, Signatures/Attestation Shaila Conley) (Signed 16-Nov-2019 09:55) Authored: Signatures/Attestation Co-Signer: History of Present Illness, Home Medication Review, Impression/Procedure, Physical Exam, Consent, Signatures/Attestation Last Updated: 16-Nov-2019 09:55 by Shaila Conley) [facility] Patient Profile - Preop v2on 11-14-2019 Patient Profile - Preop v2 Profile: Initial Info: How to be AddressedCortney Spoken Language PreferredEnglish Are you currently using the Personal Electronic Health Record or Acceptd Stated Reason for Admissionlaparoscopic removal of nendometriosis Primary Contact Name and NumberRob [phone] Patient Belongingssee checklist Medications Brought to Hospitalno General Health: Weight in kg91 kilogram(s) Weight in aks171.6 pound(s) Weight Methodactual (measured) Scale Typestanding Height in feet5 feet Height in [id number] inch(es) Height in cm177.8 centimeter(s) Height Methodstated BMI (kg/m2)28.785 square meter Patient or Family Member Reaction to Anesthesiano previous reaction Health Mgmt: Symptoms/Conditions Managed at HomePMH: POTS, IBS, anxiety, liver adenoma, uterine polyps PSH: tonsillectomy, tubes in ears, wisdom teeth extraction, colonoscopy, hysteroscopy, 3 IVF retrievals Are You Currently Breastfeedingno (1) Barriers to Managing Healthnone Relationship/Environ: Living Arrangementshouse Lives Withspouse Resource/Environmental Concernsnone Substance: Current or Former Substance Use never: Cigarette/Tobacco, e-Cigarette/Vaping, Street Drugs YES: Alcohol Alcohol Use Statuscurrent alcohol Alcohol Amount3-4 drinks Alcohol Frequencymonthly or less Risk Screens: COVID-19 Screening Completedno exposure or symptoms Advance Directive/DNRno During the past month, have you often been bothered by feeling down, depressed or hopelessno During the past month, have you often had little interest or pleasure in doing thingsno Have you had any thoughts of harming yourselfno Have you had any thoughts of harming anyone elseno Are you or have you been threatened or abused physically,emotionally or sexually abused by anyoneno Do you feel UNSAFE going back to the place you are livingno Patient is Able to be Assessed for Learningyes Factors Influencing Readiness to Learnacuteness of illness Factors that Impact Ability to Learnnone Devices/Methods Used to Communicateglasses Learning Preferencesverbal instruction; written material Cultural Considerationsnone Developmental Considerationsnone Mandaeism Considerationsnone Other learner availableno [place] RiskPatient location auto qualifies him/her for HIGH RISK. Are there any cultural, spiritual, sabianist practices/values/needs that are important for us to knowno Pain Scalenumerical 0-10 Pain Scale Educationteaching provided Current Pain Level0 = None Acceptable Pain Level7 = Severe Chronic Painno Information Review: Allergies, Home Meds and Significant Events have been Reviewed and Verified with Patient/Familyyes Allergy, Intolerance, Adverse Event: Allergies: Motrin: Drug, Rash, Active Augmentin: Drug, Rash, Active Zithromax: Drug, Rash, Active Omnicef: Drug, Rash, Active Bactrim DS: Drug, Rash, Active doxycycline: Drug, Rash, Active Electronic Signatures: Bakari Ashby (LEE) (Signed 14-Nov-2019 10:29) Authored: Initial Info, General Health, Health Mgmt, Relationship/Environ, Substance, Risk Screens, Additional Information Last Updated: 14-Nov-2019 10:29 by Bakari Ashby (LEE) References: 1. Data Referenced From History and Physical - Surgery > 30 days 14-Nov-2019 00:00 Normal [facility] Preop Checkliston 11-14-2019 Preop Checklist Preop Checklist: Preop Checklist: Arrival [id number] Arrival Time09:50 Procedure Typelaparoscopic excision of endometriosis, chromopertubation, diagnostic hysteroscopy NPO [id number] 21:00 ID Band Onyes Allergy Bandyes Consent Signedpending H&P Completepending Anesthesia Assessment Completedpending EKG Performednot ordered Chest X-Ray Performednot ordered HCG Urine TestComplete Chlorhexadine Bath Givennot applicable Nasal Antiseptic Appliednot applicable Hair Washedyes Soap and water bath with hair shampoo the night before surgeryyes Hat placed on infant prior to transportnot applicable SCD's Appliedsent to [place] Hose Appliedyes Denturesnot applicable Prostheticsnot applicable Hearing Aidsnot applicable Valuables Securedplaced in locker Glasses / Contactsplaced in locker Bowel Prepno Cardiovascular Assessment: Apicalregular Radial Pulsespalpable Pedal Pulsespalpable Extremitieswarm, well perfused Respiratory Assessment: Respirationsunlabored Air Exchangeequal Breath Soundsclear Neurological Assessment: Level of Consciousnessalert, oriented Mobilitymoves all extremities Able to Express Selfyes Age Appropriateyes Emotional Statusanxious Preop Education: Surgical Site Infection Preventionno Pain Scales and Managementyes Language / Communication: Language / CommunicationEnglish Electronic Signatures: Bakari Ashby (LEE) (Signed 14-Nov-2019 10:02) Authored: Preop Checklist Last Updated: 14-Nov-2019 10:02 by Bakari Ashby (LEE) Normal [facility] Vital Signs Date Time Vital Sign Value Performing Clinician Facility 06-05-2024 07:44-0400 Body height 177.8 cm Bakari Escalera DO Work Phone: [facility] 06-05-2024 07:44-0400 Body weight 95.25 kg Bakari Escalera DO Work Phone: [facility] 05-09-2024 14:31-0400 Diastolic blood pressure 78 mm[Hg] [address] 05-09-2024 14:31-0400 Heart rate 83 /min [address] 05-09-2024 14:31-0400 Systolic blood pressure 128 mm[Hg] [address] 05-07-2024 15:28-0400 Body height 177.8 cm [facility] 05-07-2024 15:28-0400 Body mass index (BMI) [Ratio] 32.8 kg/m2 [facility] 05-07-2024 15:28-0400 Body temperature 98.3 [degF] [facility] 05-07-2024 15:28-0400 Body weight 103.87 kg [facility] 05-07-2024 15:28-0400 Diastolic blood pressure 74 mm[Hg] [facility] 05-07-2024 15:28-0400 Heart rate 100 /min [facility] 05-07-2024 15:28-0400 SaO2% (BldA) [Mass fraction] 99 % [facility] 05-07-2024 15:28-0400 Systolic blood pressure 118 mm[Hg] [facility] 04-13-2024 15:29-0500 Body temperature 97.5 [degF] Inga Josue RECYCLING ATTENDANT Work Phone: [facility] 04-13-2024 15:29-0500 Diastolic blood pressure 78 mm[Hg] Inga Josue RECYCLING ATTENDANT Work Phone: [facility] 04-13-2024 15:29-0500 Heart rate 104 /min Inga Josue RECYCLING ATTENDANT Work Phone: [facility] 04-13-2024 15:29-0500 SaO2% (BldA) [Mass fraction] 100 % Inga Josue RECYCLING ATTENDANT Work Phone: [facility] 04-13-2024 15:29-0500 Systolic blood pressure 142 mm[Hg] Inga Josue RECYCLING ATTENDANT Work Phone: [facility] 04-05-2024 13:43-0500 Body height 177.8 cm [facility] 04-05-2024 13:43-0500 Body mass index (BMI) [Ratio] 32.4 kg/m2 [facility] 04-05-2024 13:43-0500 Body temperature 98.1 [degF] [facility] 04-05-2024 13:43-0500 Body weight 102.51 kg [facility] 04-05-2024 13:43-0500 Diastolic blood pressure 78 mm[Hg] [facility] 04-05-2024 13:43-0500 Heart rate 100 /min [facility] 04-05-2024 13:43-0500 Respiratory rate 18 /min [facility] 04-05-2024 13:43-0500 SaO2% (BldA) [Mass fraction] 98 % [facility] 04-05-2024 13:43-0500 Systolic blood pressure 123 mm[Hg] [facility] 02-02-2024 15:38-0500 Body mass index (BMI) [Ratio] 34.69 kg/m2 Inga Josue RECYCLING ATTENDANT Work Phone: [facility] 02-02-2024 15:38-0500 Body temperature 97.7 [degF] Inga Josue RECYCLING ATTENDANT Work Phone: [facility] 02-02-2024 15:38-0500 Body weight 101.97 kg Inga Josue RECYCLING ATTENDANT Work Phone: [facility] 02-02-2024 15:38-0500 Diastolic blood pressure 80 mm[Hg] Inga Josue RECYCLING ATTENDANT Work Phone: [facility] 02-02-2024 15:38-0500 Heart rate 89 /min Inga Josue RECYCLING ATTENDANT Work Phone: [facility] 02-02-2024 15:38-0500 SaO2% (BldA) [Mass fraction] 99 % Inga Josue RECYCLING ATTENDANT Work Phone: [facility] 02-02-2024 15:38-0500 Systolic blood pressure 122 mm[Hg] Inga Josue RECYCLING ATTENDANT Work Phone: [facility] 12-30-2023 14:54-0500 Diastolic blood pressure 65 mm[Hg] Ariel Calderon MD Work Phone: [facility] 12-30-2023 14:54-0500 Systolic blood pressure 110 mm[Hg] Ariel Calderon MD Work Phone: [facility] 12-30-2023 14:35-0500 Body height 175.3 cm Ariel Calderon MD Work Phone: [facility] 12-30-2023 14:35-0500 Body mass index (BMI) [Ratio] 32.52 kg/m2 Ariel Calderon MD Work Phone: [facility] 12-30-2023 14:35-0500 Body weight 99.88 kg Ariel Calderon MD Work Phone: [facility] 12-30-2023 14:35-0500 Heart rate 86 /min Ariel Calderon MD Work Phone: [facility] 11-30-2023 15:39-0400 Body mass index (BMI) [Ratio] 34.41 kg/m2 Riddhi Rinkes DO Work Phone: [facility] 11-30-2023 15:39-0400 Body weight 101.15 kg Riddhi Rinkes DO Work Phone: [facility] 11-30-2023 15:39-0400 Diastolic blood pressure 78 mm[Hg] Riddhi Rinkes DO Work Phone: [facility] 11-30-2023 15:39-0400 Systolic blood pressure 124 mm[Hg] Riddhi Rinkes DO Work Phone: [facility] 10-20-2023 15:37-0400 Body height 171.5 cm Riddhi Rinkes DO Work Phone: [facility] 10-20-2023 15:37-0400 Body mass index (BMI) [Ratio] 34.57 kg/m2 Riddhi Rinkes DO Work Phone: [facility] 10-20-2023 15:37-0400 Body weight 101.61 kg Riddhi Rinkes DO Work Phone: [facility] 10-20-2023 15:37-0400 Diastolic blood pressure 80 mm[Hg] Riddhi Rinkes DO Work Phone: [facility] 10-20-2023 15:37-0400 Systolic blood pressure 120 mm[Hg] Riddhi Villar DO Work Phone: [facility] 02-08-2023 11:24-0500 Body height 177.8 cm DO Bakari Escalera Work Phone: [facility] 02-08-2023 11:24-0500 Body weight 97.52 kg DO Bakari Escalera Work Phone: [facility] 09-29-2022 09:30-0400 Body height 172.09 cm Bakari Escalera Other [employer] [facility] [employer] Other 09-29-2022 09:30-0400 Body mass index (BMI) [Ratio] 32.78 kg/m2 Bakari Escalera Other [email or web address] Other 09-29-2022 09:30-0400 Body temperature 97.6 [degF] Bakari Escalera Other [email or web address] Other 09-29-2022 09:30-0400 Body weight 97.07 kg Bakari Escalera Other [email or web address] Other 09-29-2022 09:30-0400 Diastolic blood pressure 70 mm[Hg] Bakari Escalera Other [email or web address] Other 09-29-2022 09:30-0400 Respiratory rate 18 /min Bakari Escalera Other [email or web address] Other 09-29-2022 09:30-0400 SaO2% (BldA) [Mass fraction] 98 % Bakari Escalera Other [email or web address] Other 09-29-2022 09:30-0400 Systolic blood pressure 98 mm[Hg] Bakari Escalera Other [email or web address] Other 08-31-2022 11:58-0400 Body height 177.8 cm Bakari Escalera Work Phone: [facility] 600 DO Work Phone: 08-31-2022 11:58-0400 Body mass index (BMI) [Ratio] 30.56 kg/m2 Bakari Escalera Work Phone: [facility] 600 DO Work Phone: 08-31-2022 11:58-0400 Body surface area Derived from formula 2.14 m2 Bakari Escalera Work Phone: [facility] 600 DO Work Phone: 08-31-2022 11:58-0400 Body weight 96.62 kg Bakari Escalera Work Phone: [facility] 600 DO Work Phone: 08-31-2022 11:58-0400 Diastolic blood pressure 60 mm[Hg] Bakari Escalera Work Phone: [facility] 600 DO Work Phone: 08-31-2022 11:58-0400 Systolic blood pressure 98 mm[Hg] Bakari Escalera Work Phone: [facility] 600 DO Work Phone: 08-31-2022 11:58-0400 Systolic blood pressure 100 mm[Hg] Bakari Escalera Work Phone: [facility] 600 DO Work Phone: 08-31-2022 11:58-0400 78 1 Bakari Escalera Work Phone: [facility] 600 DO Work Phone: Comment on above: [employer] 08-31-2022 11:58-0400 80 1 Bakari Escalera Work Phone: [facility] 600 DO Work Phone: Comment on above: [employer] 01-27-2022 16:45-0500 Body height 172.09 cm Mayuri Cartwrightmond Other [email or web address] Other 01-27-2022 16:45-0500 Body mass index (BMI) [Ratio] 29.87 kg/m2 Mayuri Cartwrightmond Other [email or web address] Other 01-27-2022 16:45-0500 Body temperature 98.9 [degF] Mayuri Cartwrightmond Other [email or web address] Other 01-27-2022 16:45-0500 Body weight 88.45 kg Mauyri Cartwrightmond Other [email or web address] Other 01-27-2022 16:45-0500 Diastolic blood pressure 62 mm[Hg] Mayuri Cartwrightmond Other [email or web address] Other 01-27-2022 16:45-0500 Respiratory rate 18 /min Mayuri David Other [email or web address] Other 01-27-2022 16:45-0500 SaO2% (BldA) [Mass fraction] 100 % Mayuri Cartwrihgtmond Other [email or web address] Other 01-27-2022 16:45-0500 Systolic blood pressure 110 mm[Hg] Mayuri Joann Other [email or web address] Other 09-16-2021 09:39-0400 Body height 177.8 cm Bakari Escalera Work Phone: [facility] 250 DO Work Phone: 09-16-2021 09:39-0400 Body mass index (BMI) [Ratio] 30.28 kg/m2 Bakari Escalera Work Phone: [facility] 250 DO Work Phone: 09-16-2021 09:39-0400 Body surface area Derived from formula 2.14 m2 Bakari Escalera Work Phone: [facility] 250 DO Work Phone: 09-16-2021 09:39-0400 Body weight 95.71 kg Bakari Escalera Work Phone: [facility] 250 DO Work Phone: 09-16-2021 09:39-0400 Diastolic blood pressure 58 mm[Hg] Bakari Escalera Work Phone: [facility] 250 DO Work Phone: 09-16-2021 09:39-0400 Heart rate 70 /min Bakari Escalera Work Phone: [facility] 250 DO Work Phone: 09-16-2021 09:39-0400 Systolic blood pressure 102 mm[Hg] Bakari Escalera Work Phone: [facility] 250 DO Work Phone: 06-06-2020 11:50-0400 Body height 177.8 cm Kelsi Harry COIL CONNECTOR-COIN COLLECTOR AM-HZMJU-Lrszzs 310 IVF Work Phone: 06-06-2020 11:50-0400 Body mass index (BMI) [Ratio] 28.7 kg/m2 Kelsi Harry COIL CONNECTOR-COIN COLLECTOR YK-VQEOZ-Gojhho 310 IVF Work Phone: 06-06-2020 11:50-0400 Body surface area Derived from formula 2.09 m2 Kelsi Harry COIL CONNECTOR-COIN COLLECTOR TJ-VTMEW-Dpbuck 310 IVF Work Phone: 06-06-2020 11:50-0400 Body weight 90.72 kg Kelsi Harry COIL CONNECTOR-COIN COLLECTOR LF-GZEWW-Fsncmt 310 IVF Work Phone: 06-06-2020 11:50-0400 0 1 Kelsi Harry COIL CONNECTOR-COIN COLLECTOR XZ-KJYDI-Kpzrvt 310 IVF Work Phone: Comment on above: Pain Scale Para 06-06-2020 11:50-0400 1 1 Kelsi Harry COIL CONNECTOR-COIN COLLECTOR VU-GXLXU-Asxomb 310 IVF Work Phone: Comment on above: Encounters Encounter Date Encounter Type Care Provider Facility Start: 07-06-2024 End: 07-06-2024 flow sheet [facility] Nurse [facility] Start: 07-02-2024 End: 07-02-2024 External Result Encounter Riddhi Pat Villar DO Work Phone: [facility] External Department Unsolicited Start: 07-02-2024 End: 07-02-2024 External Result Encounter Riddhi Pat Villar DO Work Phone: [facility] External Department Unsolicited Start: 07-02-2024 End: 07-02-2024 Patient encounter procedure Bakari Griceldanina DO Work Phone: [facility] [place] Work Phone: Start: 07-02-2024 End: 07-02-2024 ambulatory Bakari Escalera Facility:[facility] Start: 06-29-2024 End: 06-29-2024 External Result Encounter Riddhi Pat Villar DO Work Phone: [facility] External Department Unsolicited Start: 06-29-2024 End: 06-29-2024 External Result Encounter Riddhi Stewart Maureensree DO Work Phone: [facility] External Department Unsolicited Start: 06-29-2024 End: 06-29-2024 Patient encounter procedure Bakari Escalera DO Work Phone: [facility] [place] Work Phone: Start: 06-29-2024 End: 06-29-2024 ambulatory Bakari Escalera Facility:[facility] Start: 06-14-2024 End: 06-14-2024 ambulatory RIDDHI VILLAR Not Available Start: 06-06-2024 End: 06-06-2024 Patient encounter procedure Bakari Escalera DO Work Phone: [facility] [place] Work Phone: Start: 06-06-2024 End: 06-06-2024 ambulatory Bakari Escalera DO Work Phone: [facility] Work Phone: Start: 05-09-2024 End: 05-09-2024 Subsequent hospital visit by physician Neha Pinedo Stress Room 1 [facility] Comment on above: Chest pain, unspecif ied type Start: 05-09-2024 End: 05-09-2024 ambulatory [facility] Start: 05-07-2024 End: 05-07-2024 ambulatory [facility] Work Phone: Start: 05-07-2024 End: 05-07-2024 Patient encounter procedure [facility] [place] Work Phone: Start: 04-18-2024 End: 04-18-2024 ambulatory [facility] Work Phone: Start: 04-18-2024 End: 04-18-2024 Patient encounter procedure [facility] [place] Work Phone: Start: 04-13-2024 End: 04-13-2024 ambulatory INGA JOSUE Not Available Start: 04-13-2024 End: 04-13-2024 Office outpatient visit 15 minutes Inga Josue RECYCLING ATTENDANT Work Phone: [facility] Comment on above: Other headache syndr ome (Primary Dx); Cough, unspecified type Start: 04-07-2024 Non-patient / [facility] Work Phone: Start: 04-05-2024 End: 04-05-[address] [facility] Work Phone: Start: 04-05-2024 End: 04-05-2024 Patient encounter procedure [facility] Rajiv Work Phone: Start: 02-24-2024 End: 02-24-2024 [facility] Start: 02-24-2024 End: 02-24-2024 [facility] Work [facility]: [facility] Start: 02-24-2024 End: 02-24-2024 Office outpatient new [facility] Work [facility]: [facility] Comment on above: Melanocytic nevus of face, other location (Primary Dx); Melanocytic nevus of trunk; Melanocytic nevus of upper extremity, unspecified laterality; Melanocytic nevus of lower extremity, unspecified laterality; Lentigo simplex; Dermatofibroma; Neoplasm of skin Start: 02-24-2024 End: 02-24-[address] [facility] Start: 02-04-2024 End: 02-04-2024 Telephone encounter Inga Josue RECYCLING ATTENDANT Work Phone: [facility] Start: 02-02-2024 End: 02-02-2024 ambulatory INGA JOSUE Not Available Start: 02-02-2024 End: 02-02-2024 Office outpatient visit 15 minutes Inga Josue RECYCLING ATTENDANT Work Phone: [facility] Comment on above: Viral upper respirat ory illness (Primary Dx); Cough, unspecified type Start: 12-30-2023 End: 12-30-2023 Office outpatient visit 15 minutes Ariel Calderon MD Work Phone: [facility] Comment on above: Neurocardiogenic pre -syncope; Hypotension, unspecified hypotension type; BMI 32.0-32.9,adult; Never smoked tobacco Start: 12-30-2023 End: 12-30-2023 ambulatory [facility] Ambulatory Start: 12-14-2023 End: 12-14-2023 ambulatory RIDDHIGAVIN BOWENSREE Not Available Start: 11-30-2023 End: 11-30-2023 Office outpatient visit 25 minutes Riddhi E Maureenkes DO Work Phone: [facility] Comment on above: Menorrhagia with reg ular cycle; Pelvic pain in female; Breast pain, left Start: 11-30-2023 End: 11-30-2023 ambulatory RIDDHI VILLAR Not Available Start: 11-11-2023 End: 11-11-2023 ambulatory INGA JOSUE Not Available Start: 10-28-2023 End: 10-28-2023 Patient encounter procedure DO Bakari Escalera Work Phone: [facility] [place] Work Phone: Start: 10-28-2023 End: 10-28-2023 ambulatory DO Bakari Escalera Work Phone: [facility] Work Phone: Start: 10-28-2023 Encounter for genera l adult medical examination without abnormal findings Bakari Escalera [facility] Start: 10-20-2023 End: 10-20-2023 ambulatory RIDDHI VILLAR Not Available Start: 10-20-2023 End: 10-20-2023 Patient encounter status Riddhi Bowenkes DO Work Phone: [facility] Work Phone: Start: 10-20-2023 End: 10-20-2023 Periodic preventive med est patient 18-39 yrs Riddhi Stewart Maureenkes DO Work Phone: [facility] Comment on above: Encounter for gyneco logical examination without abnormal finding (Primary Dx); Screening for malignant neoplasm of cervix; Dysuria; Menorrhagia with regular cycle; Pelvic pain in female Start: 10-20-2023 End: 10-20-2023 Bamboo flowsheet Riddhi E Maureenkes DO Work Phone: [facility] Start: 10-20-2023 End: 08-29-2024 Bamboo flowsheet Riddhi E Rinkes DO Work Phone: [facility] Start: 07-06-2023 End: 07-06-2023 ambulatory [facility] Ambulatory Start: 07-06-2023 End: 07-06-2023 Office outpatient visit 15 minutes Marvin [facility] COIL CONNECTOR-COIN COLLECTOR Work Phone: [facility] Comment on above: Anxiety and depressi on Start: 05-04-2023 End: 05-04-2023 ambulatory [facility] Amb[facility] Start: 05-04-2023 End: 05-04-2023 Office outpatient visit 15 minutes Marvin [facility] COIL CONNECTOR-COIN COLLECTOR Work Phone: [facility] Comment on above: ADEN (generalized anx iety disorder); Anxiety and depression Start: 03-17-2023 End: 03-17-2023 ambulatory Bakari Escalera Other [email or web address] Other Start: 03-17-2023 Telephone encounter Bakari Escalera [facility] Start: 02-08-2023 End: 02-08-2023 ambulatory DO Bakari Escalera Work Phone: [facility] Work Phone: Start: 02-08-2023 End: 02-08-2023 Patient encounter procedure DO Bakari Escalera Work Phone: [facility] [place] Work Phone: Start: 02-01-2023 End: 02-01-2023 ambulatory DO Bakari Escalera Work Phone: [facility] Work Phone: Start: 02-01-2023 End: 02-01-2023 Patient encounter procedure DO Bakari Escalera Work Phone: [facility] [place] Work Phone: Start: 01-19-2023 End: 01-19-2023 ambulatory [facility] Start: 01-19-2023 End: 01-19-2023 Office outpatient visit 10 minutes Marvin Haque COIL CONNECTOR-COIN COLLECTOR Work Phone: [facility] Comment on above: Anxiety and depressi on Start: 12-27-2022 End: 12-27-2022 ambulatory Bakari Escalera Other [email or web address] Other Start: 12-27-2022 Encounter by computer link Bakari wood [facility] [place] Start: 12-14-2022 End: 12-14-2022 Office outpatient visit 15 minutes Marvin Chet Haque COIL CONNECTOR-COIN COLLECTOR Work Phone: [facility] Comment on above: Moderate episode of recurrent major depressive disorder (CMS/HCC); ADEN (generalized anxiety disorder) Start: 12-14-2022 End: 12-14-2022 [facility] Start: 11-19-2022 End: 11-19-2022 ambulatory Lawrence Su Other [email or web address] Other Start: 11-19-2022 Telephone encounter Lawrence Su [facility] Career Technology Teacher Start: 10-14-2022 Office outpatient vi sit 25 minutes Bakari Escalera Work Phone: GY-Xthsoajdao-Tiazthg 1200 DO Work Phone: Start: 10-05-2022 End: 10-05-2022 ambulatory DO Bakari Escalera Work Phone: [facility] Work Phone: Start: 10-05-2022 End: 10-05-2022 Patient encounter procedure DO Bakari Escalera Work Phone: [facility] [place] Work Phone: Start: 09-29-2022 End: 09-29-2022 ambulatory Bakari Escalera Other [email or web address] Other Start: 09-29-2022 Encounter for genera l adult medical examination without abnormal findings Bakari Escalera [facility] Start: 09-29-2022 Periodic preventive med est patient 18-39 yrs Bakari Escalera [facility] [place] Start: 09-28-2022 Rx Renewal Bakari Escalera Work Phone: ZX-Weoazvuctu-Ssnuiyb 1200 DO Work Phone: Start: 08-31-2022 Office outpatient vi sit 10 minutes Bakari Escalera Work Phone: [facility] 600 DO Work Phone: Start: 08-10-2022 Office outpatient vi sit 15 minutes Bakari Escalera Work Phone: TT-Vgxcxjykls-Alaotay 1200 DO Work Phone: Start: 06-22-2022 End: 06-22-[address] KACY PRYOR Facility: Start: 05-25-2022 Office outpatient vi sit 15 minutes Bakari Escalera Work Phone: AV-Orptpjetbd-Ltamtcx 1200 DO Work Phone: Start: 03-18-2022 AUDIT Bakari Escalera Work Phone: ZW-Xnwbteoxms-Nsfxckv 1200 DO Work Phone: Start: 03-03-2022 Office outpatient vi sit 15 minutes Bakari Escalera Work Phone: NX-Usldkcwcwh-Gmbcidl 1200 DO Work Phone: Start: 01-27-2022 End: 01-27-2022 ambulatory Mayuri David Other [email or web address] Other Start: 01-27-2022 Office outpatient vi sit 15 minutes Mayuri David [facility] Urgent Care [place] Start: 01-26-2022 Office outpatient vi sit 25 minutes Bakari Escalera Work Phone: LV-Tjkjmnzihz-Hfbywnm 1200 DO Work Phone: Start: 01-04-2022 End: 01-04-2022 ambulatory Bakari Escalera Other [email or web address] Other Start: 01-04-2022 Telephone encounter Bakari Escalera [facility] [place] Start: 12-21-2021 End: 12-21-2021 ambulatory Bakari Escalera Other [email or web address] Other Start: 12-21-2021 Telephone encounter Bakari Escalera [facility] [place] Start: 09-25-2021 End: 09-25-2021 Patient encounter procedure DO Bakari Escalera Work Phone: [facility] [place] Start: 09-18-2021 End: 09-18-2021 ambulatory Bakari Escalera Other [email or web address] Other Start: 09-18-2021 Telephone encounter Bakari Escalera [facility] [place] Start: 09-16-2021 ambulatory Ariel Calderon Facility : Start: 09-16-2021 AUDIT Bakari Escalera Work Phone: [facility] 250 DO Work Phone: Start: 08-04-2021 Office outpatient vi sit 25 minutes Bakari Escalera Work Phone: NH-Lopcalitov-[place]ry [place] 201B DO Work Phone: Start: 07-23-2021 End: 07-24-2021 ambulatory VIC ALAINA . Facility: Start: 06-30-2021 Office outpatient vi sit 25 minutes Bakari Escalera QU-Ykktvjsqnp-Ubzbk [place] 201B DO Work Phone: Start: 06-18-2021 Office outpatient vi sit 15 minutes Bakari Escalera CM-Cmsutjulmn-Pdtwn [place] 201B DO Work Phone: Start: 04-23-2021 Office outpatient vi sit 15 minutes Bakari Escalera LF-Drsbdjmpsh-Cdjwm [place] 201B DO Work Phone: Start: 03-05-2021 Office outpatient vi sit 15 minutes Bakari Escalera UU-Ewiopvfaqf-Bsbhh [place] 201B DO Work Phone: Start: 01-22-2021 Office outpatient vi sit 25 minutes Bakari Thomas Griceldanina LR-Fgaptyegrm-Hrhyq [place] 201B DO Work Phone: Start: 10-31-2020 Patient encounter procedure Bakari Thomas Griceldanina TS-PQOTI-Ytwiwir 206A IVF Work Phone: Start: 10-31-2020 ULTRASOUND, Provider : OBGYN IVF RDMS CASSIDY 1,MG OBGYN, Status: Pen, Time: 10:30 AM Bakari Escalera ZE-Uneyfxdlxs-Jnakh [place] 201B DO Work Phone: Start: 10-30-2020 Office outpatient vi sit 15 minutes Bakari Thomas Griceldanina GD-Sxighvbtwz-Tiqpd [place] 201B DO Work Phone: Start: 10-30-2020 VIRFUVHOME, Provider : Marvin Haque, Status: Pen, Time: 3:30 PM Bakari Escalera QJ-KHMHD-Nstofz 310 IVF Work Phone: Start: 10-28-2020 Telephone encounter Bakari Louise N-ZFXXQ-Efqnez 310 IVF Work Phone: Start: 10-16-2020 AUDIT Bakari Escalera MG-OBGYN -Risman 310 IVF Work Phone: Start: 09-11-2020 Office outpatient vi sit 15 minutes Bakari Escalera TD-Izpenqshty-Pdeif [place] 201B DO Work Phone: Start: 09-02-2020 ULTRALAB, Provider: OBGYN IVF RDMS CASSIDY 1,MG OBGYN, Status: Pen, Time: 8:00 AM Bakari Escalera KX-NHQYH-Nysjrn 310 IVF Work Phone: Start: 09-01-2020 Chart Update Bakari Escalera MG-OBGYN -[place] 310 IVF Work Phone: Start: 08-29-2020 Patient encounter procedure Bakari Escalera IQ-MLGWY-Ywymua 310 IVF Work Phone: Start: 08-13-2020 Patient encounter procedure Bakari Escalera ZZ-SSAMX-Xhqmap 310 IVF Work Phone: Start: 08-12-2020 Patient encounter procedure Bakari Escalera XE-Tufnictbfw-Rfzfe [place] 201B DO Work Phone: Start: 07-30-2020 AUDIT Bakari Thomas Girvin MG-OBGYN -[place] 310 IVF Work Phone: Start: 07-14-2020 Patient encounter procedure Bakari Escalera OH-IHNEE-Lelmpe 310 IVF Work Phone: Start: 04-10-2020 Patient encounter procedure Kelsi Harry COIL CONNECTOR-COIN COLLECTOR ST-MVPVM-Pofivb 310 IVF Work Phone: Start: 04-07-2020 Patient encounter procedure Kelsi Harry COIL CONNECTOR-COIN COLLECTOR BB-SINHH-Zuziyw 310 IVF Work Phone: Start: 04-04-2020 Patient encounter procedure Kelsi Harry COIL CONNECTOR-COIN COLLECTOR GK-ETEOR-Nspweq 310 IVF Work Phone: Start: 04-01-2020 Patient encounter procedure Kelsi Harry COIL CONNECTOR-COIN COLLECTOR RD-BFVZL-Rvwvbi 310 IVF Work Phone: Start: 02-14-2020 Patient encounter procedure Kelsi Harry COIL CONNECTOR-COIN COLLECTOR ZW-UICEC-Eqdpmj 310 IVF Work Phone: Start: 01-28-2020 Patient encounter procedure Kelsi Harry COIL CONNECTOR-COIN COLLECTOR ZA-ZGPEW-Vmkxwy 310 IVF Work Phone: Start: 01-26-2020 Patient encounter procedure Kelsi Harry SZ-CVIHO-Qyjmuz 310 IVF Work Phone: Start: 01-24-2020 Patient encounter procedure Kelsi Harry TG-CVTZY-Pwatwo 310 IVF Work Phone: Start: 01-21-2020 Patient encounter procedure Kelsi Harry NU-KCVFE-Snswju 310 IVF Work Phone: Start: 12-31-2019 Patient encounter procedure Kelsi Harry AJ-LOHSH-Pqaobc 310 IVF Work Phone: Start: 12-27-2019 Patient encounter procedure Kelsi LOCKWOOD-OBGYN-Risman 310 IVF Work Phone: Start: 11-30-2019 Patient encounter procedure Kelsi LOCKWOOD-OBGYN-Risman 310 IVF Work Phone: Start: 08-28-2019 Patient encounter procedure Kelsi LOCKWOOD-OBGYN-Risman 310 IVF Work Phone: Procedures Date Procedure Procedure Detail Performing Clinician Start: 07-02-2024 Gonadotropin chorion ic quantitative Riddhi Villar DO Work Phone: Start: 06-29-2024 Gonadotropin chorion ic quantitative Riddhi Villar DO Work Phone: Start: 06-06-2024 MRI of head Bakari Giron in DO Work Phone: Start: 04-13-2024 Infectious agent dna /rna influenza 1st 2 types Claudio Banegas DO Work Phone: Start: 04-05-2024 Quick Strep (POC) Start: 02-02-2024 PNEUMONIA (HTRX) Radha Josue RECYCLING ATTENDANT Work Phone: Start: 02-02-2024 STATUS COVID-19/FLU Ant john Garmiguelangel DO Work Phone: Start: 02-02-2024 H/O: section S/P Inga Josue RECYCLING ATTENDANT Work Phone: Start: 10-20-2023 Urnls dip stick/tabl et rgnt non-auto w/o micrscp Riddhi iVllar DO Work Phone: Start: 02-08-2023 MRI of cervical spin e with contrast DO Bakari Escalera Work Phone: Start: 02-01-2023 MRI of head DO Bakari manzano Work Phone: Start: 01-24-2020 IO Ultrasound, limit ed pelvic, follicle monitoring Kelsi Harry Start: 12-27-2019 Assay of estradiol Nelsonchet reji Harry Start: 12-27-2019 IO Ultrasound, limit ed pelvic, follicle monitoring Kelsi Harry section Bakari wood Work Phone: H/O: section S/P DO Da león Nilay Work Phone: Myringotomy and inse rtion of T tube Bakari Escalera Work Phone: Tonsillectomy and adenoidectomy Bakari Escalera Work Phone: Total colonoscopy Bakari knight Work Phone: Plan of Treatment Date Care Activity Detail Author Start: 2041 Zoster Vaccines (1 o f 2) Zoster Vaccines (1 of 2) [facility] Start: 05-20-2031 DTaP/Tdap/Td Vaccine s (2 - Td or Tdap) DTaP/Tdap/Td Vaccines (2 - Td or Tdap) [facility] Start: 02-25-2025 End: 02-25-2025 Patient encounter procedure 02/25/2025 3:20 PM EST Office Visit [facility] [address] [place] [phone] Anjum Sanchez PA [address] [place] [phone] [facility] Start: 01-02-2025 End: 01-02-2025 Patient encounter procedure 01/02/2025 3:50 PM EST Office Visit [facility] [address] [facility] [address] [place] [phone] Ariel Calderon MD [address] [facility] [address] [place] [address] [facility] Start: 10-31-2024 End: 10-31-2024 Patient encounter procedure 10/31/2024 3:45 PM EDT Office Visit [facility] [address] [place] [phone] Riddhi Villar DO [address] [place] [address] [facility] Start: 08-14-2024 End: 08-14-2024 ambulatory 08/14/2024 1:00 PM EDT Initial [facility] [address] [place] [address] Riddhi Villar, DO [address] [place] [address] [facility] Start: 08-09-2024 End: 08-09-2024 Professional / ancillary services management 08/09/2024 8:30 AM EDT Ancillary Procedure [facility] [address] [place] [address] [facility] Start: 08-07-2024 End: 08-07-2024 Professional / ancillary services management 08/07/2024 12:30 PM EDT Ancillary Procedure [facility] [place] [address] [place] [address] [facility] [place] Start: 07-06-2024 End: 07-06-2025 Bacteria identified in Urine by Culture Urine culture Microbiology Routine care, subsequent in first trimester Expected: 07/06/2024, Expires: 07/06/2025 [facility] Work Phone: Comment on above: Expected: 07/06/2024 , Expires: 07/06/2025 Start: 07-06-2024 End: 07-06-2025 Blood type and Indirect antibody screen panel - Blood Type and screen Lab Routine care, subsequent in first trimester Expected: 07/06/2024, Expires: 07/06/2025 [facility] Comment on above: Expected: 07/06/2024 , Expires: 07/06/2025 Start: 07-06-2024 End: 07-06-2025 CBC W Auto Differential panel - Blood CBC and differential Lab Routine care, subsequent in first trimester Expected: 07/06/2024, Expires: 07/06/2025 [facility] Comment on above: Expected: 07/06/2024 , Expires: 07/06/2025 Start: 07-06-2024 End: 07-06-2025 DRUG SCREEN 17 W/CONF, UR DRUG SCREEN 17 W/CONF, UR Lab Routine Encounter for drug screening Expected: 07/06/2024, Expires: 07/06/2025 [facility] Comment on above: Expected: 07/06/2024 , Expires: 07/06/2025 Start: 07-06-2024 End: 07-06-2025 hCG, quantitative, hCG, quantitative, Lab Routine care, subsequent in first trimester Expected: 07/06/2024 (Approximate), Expires: 07/06/2025 [facility] Comment on above: Expected: 07/06/2024 (Approximate), Expires: 07/06/2025 Start: 07-06-2024 End: 07-06-2025 Hepatitis B virus surface Ag [Presence] in Serum or Plasma by Immunoassay Hepatitis B surface antigen Lab Routine care, subsequent in first trimester Expected: 07/06/2024, Expires: 07/06/2025 [facility] Comment on above: Expected: 07/06/2024 , Expires: 07/06/2025 Start: 07-06-2024 End: 07-06-2025 Hepatitis C virus Ab [Presence] in Serum or Plasma by Immunoassay Hepatitis C antibody Lab Routine care, subsequent in first trimester Expected: 07/06/2024, Expires: 07/06/2025 [facility] Comment on above: Expected: 07/06/2024 , Expires: 07/06/2025 Start: 07-06-2024 End: 07-06-2025 HIV-2 antigen assay HIV-2 antigen Lab Routine care, subsequent in first trimester Expected: 07/06/2024, Expires: 07/06/2025 [facility] Comment on above: Expected: 07/06/2024 , Expires: 07/06/2025 Start: 07-06-2024 End: 07-06-2025 Rpr (dx) w/refl titer and confirmatory testing Rpr (dx) w/refl titer and confirmatory testing Lab Routine care, subsequent in first trimester Expected: 07/06/2024, Expires: 07/06/2025 [facility] Comment on above: Expected: 07/06/2024 , Expires: 07/06/2025 Start: 07-06-2024 End: 07-06-2025 Rubella antibody, IgG Rubella antibody, IgG Lab Routine care, subsequent in first trimester Expected: 07/06/2024, Expires: 07/06/2025 [facility] Comment on above: Expected: 07/06/2024 , Expires: 07/06/2025 Start: 07-06-2024 End: 07-06-2025 Urinalysis complete panel - Urine Urinalysis with microscopic Lab Routine care, subsequent in first trimester Expected: 07/06/2024, Expires: 07/06/2025 [facility] Comment on above: Expected: 07/06/2024 , Expires: 07/06/2025 Start: 02-24-2024 End: 02-24-2024 Patient encounter procedure 02/24/2024 1:00 PM EST Office Visit [facility] [address] [place] [phone] Anjum Sanchez PA [address] [place] [phone] Arrived [facility] Comment on above: Arrived Start: 11-30-2023 End: 11-30-2023 Patient encounter procedure 11/30/2023 3:30 PM EDT Office Visit [facility] [address] [place] [phone] Riddhi Villar DO [address] [place] [address] [facility] Start: 11-30-2023 End: 11-30-2023 Patient encounter procedure 11/30/2023 9:20 AM EDT Office Visit [facility] [address] [place] [phone] Ariel Calderon MD [address] [place] [address] [facility] Start: 11-11-2023 End: 11-11-2023 Professional / ancillary services management 11/11/2023 8:00 AM EDT Ancillary Procedure [facility] [address] [place] [address] [facility] Start: 10-23-2023 COVID-19 Vaccine ( season) COVID-19 Vaccine ( season) [facility] Start: 10-23-2023 Influenza vaccination [facility] Start: 07-06-2023 End: 07-06-2023 Telemedicine consultation with patient 07/06/2023 3:30 PM EDT Telemedicine [facility] [address] [place] [address] Marvin Haque, COIL CONNECTOR-[facility] [address] Deepthi Chapin Department of Psychiatry-[place] [id number] [facility] Start: 05-26-2023 End: 05-26-2023 Patient encounter procedure 05/26/2023 8:40 AM EDT Office Visit [address] [address] Ariel Calderon MD [address] [facility] [address] [place] [address] [facility] Start: 03-03-2023 FUV, Provider: Ariel Calderon, Status: Pen, Time: 11:50 AM FUV, Provider: Ariel Calderon, Status: Pen, Time: 11:50 AM -[facility] 600 DO Work Phone: Start: 03-03-2023 End: 03-03-2023 Patient encounter procedure 03/03/2023 11:50 AM EST Office Visit [facility] [address] [facility] [address] [place] [address] Ariel Calderon MD [address] [facility] [address] [place] [address] [facility] Start: 01-12-2023 End: 01-12-2023 Telemedicine consultation with patient 01/12/2023 3:30 PM EST [facility] [address] [place] [phone] Marvin Haque, COIL CONNECTOR-COIN COLLECTOR [address] Deepthi Chapin [place] [address] [facility] Start: 10-22-2022 Influenza vaccination Influenza Vacc ine (#1) [facility] Start: 10-14-2022 VIRFUVSHIRA, Provider : Marvin Haque, Status: Pen, Time: 8:00 AM VIRFUVRASHEEDE, Provider: Marvin Haque, Status: Pen, Time: 8:00 AM HJ-Xhovjuobva-Ihpsv ll 1200 DO Work Phone: Start: 09-28-2022 VIRFUVRASHEEDE, Provider : Marvin Haque, Status: Pen, Time: 9:00 AM VIRFUVHOME, Provider: Marvin Haque, Status: Pen, Time: 9:00 AM -[facility] 600 DO Work Phone: Start: 09-14-2022 FUV, Provider: Ariel Calderon, Status: Pen, Time: 10:00 AM FUV, Provider: Ariel Calderon, Status: Pen, Time: 10:00 AM [facility] 250 DO Work Phone: Start: 05-25-2022 VIRFUVRASHEEDE, Provider : Marvin Haque, Status: Pen, Time: 2:30 PM VIRFUVRASHEEDE, Provider: Marvin Haque, Status: Pen, Time: 2:30 PM JJ-Esntjdnagw-Wmdgm ll 1200 DO Work Phone: Start: 09-22-2021 VIRFUVSHIRA, Provider : Marvin Haque, Status: Pen, Time: 10:00 AM VIRFUVHOME, Provider: Marvin Haque, Status: Pen, Time: 10:00 AM [facility] 250 DO Work Phone: Start: 09-16-2021 FUV, Provider: Ariel Calderon, Status: Pen, Time: 9:30 AM FUV, Provider: Ariel Calderon, Status: Pen, Time: 9:30 AM AG-Vpjlozqyyv-[place] [address] DO Work Phone: Start: 12-04-2020 VIRFUVHOME, Provider : Marvin Haque, Status: Pen, Time: 3:30 PM VIRFUVHOME, Provider: Marvin Haque, Status: Pen, Time: 3:30 PM CH-ZUYMA-Dhfdeds 206A IVF Work Phone: Start: 11-07-2020 ULTRASOUND, Provider : OBGYN IVF RDMS CASSIDY 1,MG OBGYN, Status: Pen, Time: 9:00 AM ULTRASOUND, Provider: OBGYN IVF RDMS CASSIDY 1,MG OBGYN, Status: Pen, Time: 9:00 AM YQ-BEFQA-Uggtsw 310 IVF Work Phone: Start: 10-30-2020 VIRFUVHOME, Provider : Marvin Haque, Status: Pen, Time: 3:30 PM VIRFUVHOME, Provider: Marvin Haque, Status: Pen, Time: 3:30 PM AD-LFEAM-Kzdhtf 310 IVF Work Phone: Start: 09-11-2020 VIRFUVHOME, Provider : Marvin Haque, Status: Pen, Time: 2:30 PM VIRFUVHOME, Provider: Marvin Haque, Status: Pen, Time: 2:30 PM PI-Yvjejampwt-Imydb River 201B DO Work Phone: Start: 08-27-2020 RNVISIT, Provider: I VF NURSE JUSTIN BENJAMIN, Status: Pen, Time: 9:30 AM RNVISIT, Provider: IVF NURSE JUSTIN BENJAMIN, Status: Pen, Time: 9:30 AM NT-ULMVU-Itidgy 310 IVF Work Phone: Start: 08-13-2020 RNVISIT, Provider: Dustin VF NURSE JUSTIN BENJAMIN, Status: Pen, Time: 8:00 AM RNVISIT, Provider: STEW NURSE JUSTIN BENJAMIN, Status: Pen, Time: 8:00 AM NM-PGTND-Hdugkj 310 IVF Work Phone: Start: 08-12-2020 VIRNPVSHIRA, Provider : Marvin Haque, Status: Pen, Time: 10:30 AM VIRNPVSHIRA, Provider: Marvin Haque, Status: Pen, Time: 10:30 AM VP-IVPWD-Xiefae 310 IVF Work Phone: Start: 06-09-2020 Assay of progesterone Progesterone, Serum TS-VJCJE-Ukqpzf 310 IVF Work Phone: Start: 06-06-2020 25 hydroxy includes fractions if performed Vitamin D 25-Hydroxy WL-NVOEP-Pwxesg 310 IVF Work Phone: Start: 06-06-2020 Anti Mullerian Hormone Anti Mulleria n Hormone JY-JUIPZ-Rezqat 310 IVF Work Phone: Start: 06-06-2020 Antibody hiv-1 HIV 1/2 ANTIGEN/ANTIBODY SCREEN WITH REFLEX TO CONFIRMATION IL-PYFBG-Bthldj 310 IVF Work Phone: Start: 06-06-2020 Antibody rubella Rubella IgG Antibod y CM-EGALQ-Yxxyko 310 IVF Work Phone: Start: 06-06-2020 Antibody varicella-zoster Varicella Zoster IgG Antibody GL-DQIVR-Gkujwk 310 IVF Work Phone: Start: 06-06-2020 Assay of estradiol Estradiol, Serum QX-NPEKV-Otlaqn 310 IVF Work Phone: Start: 06-06-2020 Assay of ferritin Ferritin, Serum MG -OBGYN-Risman 310 IVF Work Phone: Start: 06-06-2020 Assay of iron Iron, Serum MG-OBGYN- Risman 310 IVF Work Phone: Start: 06-06-2020 Assay of progesterone Progesterone, Serum BQ-ZFMAX-Lzbars 310 IVF Work Phone: Start: 06-06-2020 Cyanocobalamin vitam in b-12 Vitamin B12, Serum JP-NITGJ-Yeijqr 310 IVF Work Phone: Start: 06-06-2020 Gonadotropin follicl e stimulating hormone Follicle Stimulating Hormone, Serum UT-TWUNX-Ucvxpf 310 IVF Work Phone: Start: 06-06-2020 Gonadotropin luteinizing hormone Luteinizing Hormone, Serum ZY-GEOFE-Wvxehr 310 IVF Work Phone: Start: 06-06-2020 Hep C screen high risk/other Hepatitis C Antibody Test AP-NTBER-Eamxaa 310 IVF Work Phone: Start: 06-06-2020 Iaad ia hepatitis b surface antigen Hepatitis B Surface Antigen OS-KZUNT-Jmzvvt 310 IVF Work Phone: Start: 06-06-2020 Iadna chlamydia trachomatis amplified probe tq GC + Chlamydia By Amplified Detection RJ-DANQP-Pzxpjf 310 IVF Work Phone: Start: 06-06-2020 SYPHILIS SCREENING W ITH REFLEX SYPHILIS SCREENING WITH REFLEX WW-DMIQH-Xtwdpu 310 IVF Work Phone: Start: 06-06-2020 TSH WITH REFLEX TO F REE T4 IF ABNORMAL TSH WITH REFLEX TO FREE T4 IF ABNORMAL XU-CTCWN-Enwuqj 310 IVF Work Phone: Start: 06-06-2020 Type and Screen Type and Screen MG-O BGYN-Risman 310 IVF Work Phone: Start: 2012 Screening for malign ant neoplasm of cervix [facility] Start: 2010 Hepatitis B Vaccines (1 of 3 - 19+ 3-dose series) Hepatitis B Vaccines (1 of 3 - 19+ 3-dose series) [facility] Start: 2009 Diabetes mellitus screening Diabetes Screening [facility] Start: 2009 Hepatitis C screening Hepatitis C Sc reeroberth [facility] Start: 2004 Varicella vaccination Varicell a Vaccines (1 of 2 - 13+ 2-dose series) [facility] Start: 1996 COVID-19 Vaccine (#1) COVID-19 Vacci ne (#1) [facility] Start: 1992 MMR Vaccines (1 of 1 - Standard series) MMR Vaccines (1 of 1 - Standard series) [facility] Start: 1992 Varicella vaccination Varicell a Vaccines (1 of 2 - 2-dose childhood series) [facility] Start: 1991 COVID-19 Vaccine (#1) COVID-19 Vacci ne (#1) [facility] Start: 1991 Hepatitis B Vaccines (1 of 3 - 3-dose series) Hepatitis B Vaccines (1 of 3 - 3-dose series) [facility] Start: 1991 HIV screening HIV Screening [facility] Start: 1991 Lipid panel Lipid Panel [facility] Start: 1991 Yearly Adult Physical Yearly Adult P hysical [facility] End: 05-09-2024 Cardiac stress study Procedure [facility] Service Area Work Phone: Comment on above: Once for 1 Occurrenc es starting 05/09/2024 until 05/09/2024 MG Breast - left Diagnostic Left diagnostic mammogram Imaging Routine Breast pain, left Ordered: 11/30/2023 [employer] Work Phone: Comment on above: Ordered: 11/30/2023 MR Unspecified body region [facility] SENDOUT TEST MISCELLANEOUS [facility] SENDOUT TEST MISCELLANEOUS [facility] Lab Routine Screening for malignant neoplasm of cervix Ordered: 10/20/2023 [employer] Work Phone: Comment on above: Ordered: 10/20/2023 US Breast - left limited Left breast US limited Imaging Routine Breast pain, left Ordered: 11/30/2023 [employer] [employer] Comment on above: Ordered: 11/30/2023 [facility] NEGATED: Highlighted row has been ruled out! Planned Goals not documented RO-BBFFJ-Znwxey 310 IVF Work Phone: Immunizations Immunization Date Immunization Notes Care Provider Terra whiteside 05-19-2021 tetanus toxoid, redu adriana diphtheria toxoid, and acellular pertussis vaccine, adsorbed Bakari Escalera SY-Qciewraotl-Admwv [place] 201[address] DO Work Phone: Payers Date Payer Category Payer Self-pay [id number] 2022 Managed Care (Private) [facility] [id number] 2021 Private Health Insurance [facility] [id number] 2021 Unknown 1991 Unknown [id number] 2.16.840.1.401958.3.579.2. 356 1991 Unknown [id number] 2.16.840.1.921281.3.579.2. 593 1991 Unknown [id number] 2.16.840.1.507590.3.579.2. 593 1991 Unknown [id number] 2.16.840.1.353112.3.579.2. 1244 1991 Unknown [id number] 2.16.840.1.189229.3.579.2. 1245 1991 Unknown [id number] 2.16.840.1.317833.3.579.2. 124 1991 Unknown [id number] 2.16.840.1.584658.3.579.2. 1244 1991 Unknown [id number] 2.16.840.1.151330.3.579.2. 1243 1991 Unknown [id number] 2.16.840.1.936238.3.579.2. 6 1991 Unknown [id number] 2.16.840.1.501521.3.579.2. 1258 1991 Unknown [id number] 2.16.840.1.558071.3.579.2. 1258 1991 Unknown [id number] 2.16.840.1.986564.3.579.2. 1258 1991 Unknown [id number] 2.16.840.1.632841.3.579.2. 9 1991 Unknown [id number] 2.16.840.1.710771.3.579.2. 1258 1991 Unknown [id number] 2.16.840.1.000913.3.579.2. 9 1991 Unknown [id number] 2.16.840.1.226623.3.579.2. 1258 1991 Unknown [id number] 2.16.840.1.335923.3.579.2. 9 1959 Unknown [id number] 1959 Unknown [id number] 2.16.840.1.697390.19 Private Health Insurance [id number] Unknown MMO [id number] Unknown [id number] 2.16.840.1.227601.3.579.2. 531 Unknown [id number] 2.16.840.1.027128.3.579.2. 531 Unknown [id number] 2.16.840.1.807726.3.579.2. 531 Unknown [id number] 2.16.840.1.241087.3.579.2. 531 Social History Date Type Detail Facility Assertion Tobacco smoking consumption unknown (finding) NO-CGWHK-Gqoayr 310 IVF Work Phone: Start: 10-20-2023 End: 07-06-2024 Alcohol use Alcohol use [facility] 201B DO Work Phone: Comment on above: socially; 1 cup daily; Start: 06-20-2021 End: 04-18-2024 Tobacco smoking status UTIS Never smoked tobacco (finding) [facility] Start: 1990 Sex Assigned At Female F [facility] Start: 10-20-2023 End: 07-06-2024 Sex Assigned At [email or web address] Other Start: 12-12-2022 Tobacco smoking status UTIS Tobacco smoking consumption unknown [facility] Work Phone: Start: 1991 Sex Assigned At Not on file [facility] Work Phone: Start: 12-04-2022 End: 05-09-2024 Exposure to SARS-CoV-2 (event) Not sure [facility] Start: 11-30-2023 End: 04-13-2024 Alcoholic beverage intake Current drinker of alcohol (finding) [facility] Start: 09-29-2022 Education 18 [facility] Start: 09-29-2022 Alcohol Comment 1-2 drinks 2-4 x a month in the past year, Caffeine intake: soda/pop sips on coke for nausea , coffee [facility] Start: 12-30-2023 End: 02-24-2024 Tobacco use and exposure Smokeless tobacco non-user [facility] Work Phone: Start: 12-30-2023 Alcoholic beverage intake Lifetime non-drinker (finding) [facility] Work Phone: Start: 04-05-2024 End: 07-03-2024 Sex Female (finding) [facility] Start: 07-06-2024 Alcoholic beverage intake Ex-drinker (finding) [facility] Start: 07-06-2024 Alcohol Comment pt reports no caffiene intake [facility] Goals Date Patient Goal Desired Activity /State Personal health goal Functional Status Date Assessment Result Facility NEGATED: Highlighted row Functional performance Functional status health issues are not documented Disease GI-YQRRQ-Asfkox 310 IVF Work Phone: Mental Status Date Assessment Result Facility NEGATED: Highlighted row Cognitive function [Interpretation] Cognitive status health issues are not documented Disease MI-SACEA-Mqavir 310 IVF Work Phone: Clinical Notes 07-19-2012 to 07-06-2024 Purvi Davis MA - 07/06/2024 9:15 AM EDT Note Date & Type Note Facility 07-06-2024 History of Presen t illness Narrative Name: Jessica Valdez Date/Time of Service:07/06/2024 10:31 [...] to Lab [facility] Appointments scheduled for OB US 08/09 and appt with JACOBO 08-14 Purvi Davis MA 07/06/2024 10:31 AM documented in this encounter [facility] 04-18-2024 Evaluation note Authored April 18, 2024 12:45pm The above note written by __ _Dorcas Rush____ acting as human recorder, note dictated by Dr. Marley .I performed the above HPI, ROS, and Examination. I formulated and dictated the treatment plan and was present for entire encounter. Bakari Escalera D.O[facility] Work Phone: 1(721) 298-871202-26-2025 Evaluation note* Author Bakari [facility] Authored April 18, 2024 12:45pm The above note written by __ _Dorcas Rush____ acting as human recorder, note dictated by Dr. Marley .I performed the above HPI, ROS, and Examination. I formulated and dictated the treatment plan and was present for entire encounter. Bakari Escalera D.O. Author Bakari [facility] Authored May 07, 2024 4:2 1pm The above note written by __ _Dorcas Rush____ acting as human recorder, note dictated by Dr. Marley .I performed the above HPI, ROS, and Examination. I formulated and dictated the treatment plan and was present for entire encounter. Bakari Escalera D.O[facility] Work Phone: 1(417) 624-888502-21-2025 History of Present illness Narrative* Inga Josue, RECYCLING ATTENDANT - 04/13/2024 3:20 PM EST Images from the original note were not included. [address], [address] [facility], [address] P: [phone] F: [phone] HPI Historian of HPI: patient Jessica Valdez is a 34 y.o. female who presents today to the Urgent Care with the following complaints and denials which have been present for 2 day(s). C/O Denies Symptom Comments [] [x] Runny Nose [] [x] Difficulty Swallowing [] [x] Sore Throat [] [x] Cough [x] [] Ear Pain Left [] [x] Fever [] [x] Chills [] [x] Nasal Congestion [] [x] Myalgia [x] [] Sinus Pain [x] [] Sinus Pressure Additional Comments: pt has not taken any OTC medications. Pt states she feels dizzy. Pt states she gets headaches pt states she started taking Prozac about 3weeks ago & is currently taking. Pt does feel nauseous, diarrhea, brain fog, Pt also wants to get arm checked out. She was in the ER on Tuesday for chest pain. Patient states arm on left side is hurting from the lab draw. Pt states they only took her blood for treatment theydid not give her anything or prescribe her anything. Pt states that there is a slight bruise aroundthe LT elbow area. Throbbing initially when blood was taken that radiated upward to the LT shoulder. Currently, pt c/o of throbbing but in the inner upper LT arm. Pt states that her Psychiatrist Is starting to wean her off of her prozac and pt is currently taking 10 mg instead of the 20 mg. ROS A complete system ROS was performed and negative aside from the pertinent positives noted in the HPI and PE. Visit Vitals BP 142/78 Pulse 104 Temp 97.5 F SpO2 100% OB Status Having periods Smoking Status Never IH Testing: PHYSICAL EXAM Physical Exam Vitals reviewed. Constitutional: General: She is not in acute distress. Appearance: Normal appearance. HENT: Head: Normocephalic and atraumatic. Right Ear: Hearing, tympanic membrane, ear canal and external ear normal. Left Ear: Hearing, tympanic membrane, ear canal and external ear normal. Nose: Nose normal. Mouth/Throat: Lips: [place]. Mouth: Mucous membranes are moist. Pharynx: Oropharynx is clear. Uvula midline. Eyes: Extraocular Movements: Extraocular movements intact. Conjunctiva/sclera: Conjunctivae normal. Pupils: Pupils are equal, round, and reactive to light. Cardiovascular: Rate and Rhythm: Normal rate and regular rhythm. Pulses: Normal pulses. Heart sounds: Normal heart sounds. Pulmonary: Effort: Pulmonary effort is normal. No respiratory distress. Breath sounds: Normal breath sounds. No wheezing, rhonchi or rales. Musculoskeletal: General: Normal range of motion. Cervical back: Normal range of motion and neck supple. Skin: General: Skin is warm and dry. Capillary Refill: Capillary refill takes less than 2 seconds. Findings: No rash. Neurological: General: No focal deficit present. Mental Status: She is alert and oriented to person, place, and time. GCS: GCS eye subscore is 4. GCS verbal subscore is 5. GCS motor subscore is 6. Cranial Nerves: Cranial nerves 2-12 are intact. Sensory: Sensation is intact. Motor: Motor function is intact. Coordination: Coordination is intact. Gait: Gait is intact. Psychiatric: Mood and Affect: Mood normal. Behavior: Behavior normal. Thought Content: Thought content normal. Judgment: Judgment normal. TREATMENT PLAN 1. Cough, unspecified type Flu testing is negative. Patient has a variety of symptoms that she is unsure if they are related to anxiety, illness, or weaning off of one of anxiety/depression medications. She was in the ER on 04/07/24 for chest pain, but states, I feel like it was probably more anxiety . She did have labs drawn. - INFLUENZA DNA PROBE 2. Other headache syndrome (Primary) Complains of dizziness and headache. Neurologic exam is WNL in urgent care. Pt was advised to go toER at this time for further evaluation of symptoms due to negative testing and ongoing symptoms. Advised that she may need additional lab work and/or imaging with CT scan. She expressed an understanding. documented in this encounterBarnes-Jewish West [facility] [id number] Evaluation note* Diagnosis Onset Date Resolution Status Admit Date Acute nasopharyngitis acute b ruary 2024 1:26pm Anxiety acute April 18, 2024 11:16am Dizziness acute April 18, 2024 11:16am [facility] Work Phone: [phone]) 340-714601-03-2025 History of Present illness Narrative* MICHELE Temple - 02/24/2024 1:00 PM EST Images from the original note were not included. 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 General Exam: alert, oriented to person, place, and time, normal affect, well appearing Unaccompanied Areas not examined despite medical recommendation: Scalp, Examined Right leg Examined Head, Face Examined Left leg Examined Neck Examined Right foot Examined Chest Examined Left foot Examined Back Examined Buttocks Examined Abdomen Examined Digits,nails: Examined Right arm Examined Left arm Examined Lymphatics: Not examined Hands Examined 1. Melanocytic nevus of face, other location Head - Anterior (Face) Scattered benign appearing, regular brown to light brown melanocytic papules and macules with similar morphology Counseled regarding these benign growths. Rarely, a nevus can develop into malignant melanoma, so any changing nevi should be promptly re-evaluated. 2. Melanocytic nevus of trunk Scattered benign appearing, regular brown to light brown melanocytic papules and macules with similar morphology Counseled regarding these benign growths. Rarely, a nevus can develop into malignant melanoma, so any changing nevi should be promptly re-evaluated. 3. Melanocytic nevus of upper extremity, unspecified laterality Scattered benign appearing, regular brown to light brown melanocytic papules and macules with similar morphology Counseled regarding these benign growths. Rarely, a nevus can develop into malignant melanoma, so any changing nevi should be promptly re-evaluated. Yearly skin exams are recommended. 4. Melanocytic nevus of lower extremity, unspecified laterality Scattered benign appearing, regular brown to light brown melanocytic papules and macules with similar morphology Counseled regarding these benign growths. Rarely, a nevus can develop into malignant melanoma, so any changing nevi should be promptly re-evaluated. 5. Lentigo simplex Scattered charlton macules in sun-exposed areas. The patient was informed that lentigines are benign pigmented lesions that occur on sun-exposed andsun-damaged skin. No treatment is necessary. Recommended regular use of broad spectrum sunscreen SPF 30 or higher 6. Dermatofibroma Left Lower Leg - Anterior Firm brown papule that dimples with lateral pressure. Discussed that these are benign scars on the skin. If lesion is changing/symptomatic, return to office to have lesion re-evaluated 7. Neoplasm of skin Right Abdomen (side) - Lower and left axilla Erythematous macule Favoring HS, discussed condition in detail and explained to patient this condition is common in areas of friction and can be chronic. Patient is not flaring today. Follow up if lesion returns/flares.Would recommend topical antibiotic. Next Visit: 1 year skin exam documented in this encounterBarnes-Jewish [facility] [id number] Telephone encounter Note* Telephone Encounter - Inga Josue NP - 02/04/2024 9:06 AM EST Please notify patient that her health trx nasal swab detected low microbial load of moraxella catarrhalis. She was going to follow up with Dr. Escalera due to her amount of allergies and being able to take plain PCN. Thank you. [facility] Work Phone: [phone]) 638-765212-14-2024 Miscellaneous Notes* Telephone Encounter - Inga Josue NP - 02/04/2024 9:06 AM EST Please notify patient that her health trx nasal swab detected low microbial load of moraxella catarrhalis. She was going to follow up with Dr. Escalera due to her amount of allergies and being able to take plain PCN. Thank you. documented in this encounterBarnes-Jewish [facility] [id number] History of Present illness Narrative* Inga Josue NP - 02/02/2024 3:35 PM EST Images from the original note were not included. [address] , [address] [facility], [address] P: [phone] F: [phone] HPI Historian of HPI: patient Jessica Valdez is a 33 y.o. female who presents today to the Urgent Care with the following complaints and denials which have been present for 4 day(s) C/O Denies Symptom Comments [x] [] Runny Nose [] [] Difficulty Swallowing [x] [] Sore Throat Better now [x] [] Cough dry [x] [] Ear Pain left [] [x] Fever [x] [] Chills [x] [] Nasal Congestion [x] [] Myalgia [x] [] Sinus Pain [x] [] Sinus Pressure Additional Comments: pt has taken tylenol OTC medication with relief Pt c/o fatigue. Pt admits to chest heaviness. ROS A complete system ROS was performed and negative aside from the pertinent positives noted in the HPI and PE. Visit Vitals BP 122/80 Pulse 89 Temp 97.7 F Wt 224 lb 12.8 oz LMP (LMP Unknown) SpO2 99% BMI 34.69 kg/m OB Status Having periods Smoking Status Never BSA 2.2 m IH Testing: PHYSICAL EXAM Physical Exam Vitals reviewed. Constitutional: General: She is not in acute distress. Appearance: Normal appearance. HENT: Head: Normocephalic and atraumatic. Right Ear: Hearing, tympanic membrane, ear canal and external ear normal. Left Ear: Hearing, tympanic membrane, ear canal and external ear normal. Nose: Nose normal. Mouth/Throat: Lips: [place]. Mouth: Mucous membranes are moist. Pharynx: Oropharynx is clear. Uvula midline. Eyes: Extraocular Movements: Extraocular movements intact. Conjunctiva/sclera: Conjunctivae normal. Pupils: Pupils are equal, round, and reactive to light. Cardiovascular: Rate and Rhythm: Normal rate and regular rhythm. Pulses: Normal pulses. Heart sounds: Normal heart sounds. Pulmonary: Effort: Pulmonary effort is normal. No respiratory distress. Breath sounds: Normal breath sounds. No wheezing, rhonchi or rales. Musculoskeletal: General: Normal range of motion. Cervical back: Normal range of motion and neck supple. Skin: General: Skin is warm and dry. Capillary Refill: Capillary refill takes less than 2 seconds. Findings: No rash. Neurological: General: No focal deficit present. Mental Status: She is alert and oriented to person, place, and time. Psychiatric: Mood and Affect: Mood normal. Behavior: Behavior normal. Thought Content: Thought content normal. Judgment: Judgment normal. TREATMENT PLAN 1. Cough, unspecified type -Take medication as prescribed below to completion -cough and deep breathe -May use Tylenol/Ibuprofen for pain/fever -May use OTC medication such as cough syrups especially at night time for relief, pseudoephedrine for nasal congestion, and/or Yas Pot or saline rinses. -Follow up with in 1 week if no improvement or go to the ED for worsening of symptoms such as SOB or CP. - STATUS COVID-19/FLU - PNEUMONIA (HTRX) 2. Viral upper respiratory illness (Primary) Pt advised they likely have a viral illness. She is agreeable to health trx nasal swab. Advised on what OTC medications to take to treat fever, sore throat, body aches, sinus pain, cough, chest congestion, nose and sinus congestion, sneezing, runny nose, watery, itchy eyes, overall congestion relief, faster recovery and how to avoid spreading your illness. Call or RTO if worsening or not improving as expected. documented in this encounterBarnes-Jewish [facility] [id number] History of Present illness Narrative* Ariel Calderon MD - 12/30/2023 2:30 PM EST Subjective Jessica aVldez is a 33 y.o. female Chief Complaint Follow-up HPI Patient is in the office for follow-up for history of mild neurocardiogenic syncope and has not hadany events since her last visit a year ago. She is going presently on keto diet to lose weight. Shemaintains adequate hydration. Denies any other symptoms of orthopnea palpitations near syncope or syncope. Currently not on any medical therapy for this problem. Her weight is above normal last 1 obesity and she is trying to lose 40 pounds which I encouraged her to try hard to achieve. Her examination outside of the weight was normal. Assessment/recommendations: 1-history of orthostatic hypotension and weak case of neurocardiogenic syncope. Currently not on medical therapy and has had no events. She maintains adequate hydration which was again emphasized. She does not need medical therapy at this time. She will continue to follow-up with me annually. 2-class I obesity, presently she is on the keto diet trying to lose weight which I encouraged her to keep. Review of Systems Cardiovascular: Positive for palpitations. Vitals: 12/30/23 1435 12/30/23 1454 BP: 100/64 110/65 BP Location: Left arm Patient Position: Sitting Pulse: 86 Weight: 99.9 kg (220 lb 3.2 oz) Height: 1.753 m (5' 9 ) Objective Physical Exam Constitutional: Appearance: Normal appearance. HENT: Nose: Nose normal. Neck: Vascular: No carotid bruit. Cardiovascular: Rate and Rhythm: Normal rate. Pulses: Normal pulses. Heart sounds: Normal heart sounds. Pulmonary: Effort: Pulmonary effort is normal. Abdominal: General: Bowel sounds are normal. Palpations: Abdomen is soft. Musculoskeletal: General: Normal range of motion. Cervical back: Normal range of motion. Right lower leg: No edema. Left lower leg: No edema. Skin: General: Skin is warm and dry. Neurological: General: No focal deficit present. Mental Status: She is alert. Psychiatric: Mood and Affect: Mood normal. Behavior: Behavior normal. Thought Content: Thought content normal. Judgment: Judgment normal. Allergies Amoxicillin, Amoxicillin-pot clavulanate, Azithromycin, Cefaclor, Cefdinir, Doxycycline, Fluconazole, Ibuprofen, Pseudoephedrine-ibuprofen, Sulfa (sulfonamide antibiotics), Sulfamethoxazole-trimethoprim, Tetracycline, Cefprozil, Dextromethorphan hbr, Erythromycin, Guaifenesin, Penicillin, Penicillin g, and Pseudoephedrine Current Medications Current Outpatient Medications: multivitamin tablet, Take 1 tablet by mouth once daily., Disp: , Rfl: sertraline (Zoloft) 25 mg tablet, Take 1 tablet (25 mg) by mouth once daily at bedtime., Disp: , Rfl: buPROPion SR (Wellbutrin SR) 100 mg 12 hr tablet, take 1 tablet by mouth twice a day (DON'T CRUSH),Disp: 30 tablet, Rfl: 0 Assessment/Plan 1. Neurocardiogenic pre-syncope 2. Hypotension, unspecified hypotension type 3. BMI 32.0-32.9,adult 4. Never smoked tobacco Scribe Attestation By signing my name below, I, Hollie Robertson LPN , Scribpat attest that this documentation has been prepared under the direction and in the presence of Ariel Calderon MD. Provider Attestation - Scribe documentation All medical record entries made by the Scribe were at my direction and personally dictated by me. Ihave reviewed the chart and agree that the record accurately reflects my personal performance of the history, physical exam, discussion and plan. documented in this encounterMcCullough-[facility] Work Phone: [phone]) 487-263111-08-2024 Instructions* Patient Instructions* Hollie Almanzar LPN - 12/30/2023 2:30 PM EST Please bring all medicines, vitamins, and herbal supplements with you when you come to the office. Prescriptions will not be filled unless you are compliant with your follow up appointments or have a follow up appointment scheduled as per instruction of your physician. Refills should be requested at the time of your visit. BMI was above normal measurement. Current weight: 99.9 kg (220 lb 3.2 oz) Weight change since last visit (-) denotes wt loss 7.2 lbs Weight loss needed to achieve BMI 25: 51.3 Lbs Weight loss needed to achieve BMI 30: 17.5 Lbs Provided instructions on dietary changes Provided instructions on exercise. documented in this encounterMcCullough-[facility] Work Phone: [phone]) 118-391310-09-2024 History of Present illness Narrative* Riddhi Villar, DO - 11/30/2023 3:30 PM EDT Images from the original note were not included. Riddhi Villar D.O. Obstetrics and Gynecology Patient: Jessica Valdez : 1990 (33 y.o.) Exam Date: 11/30/2023 Reason for Visit - Chief Complaint Patient presents with Follow-up Pt presents for follow up on US results. Pt states still been having on and off pelvic pain. Pt states uncomfortable again. Pt C/o Lt. Breast pain. Denies feeling lump. Pt states pain goes into armpit. Pt states she is still . Visit Vitals BP 124/78 Wt 223 lb BMI 34.41 kg/m Smoking Status Never BSA 2.19 m Allergies Allergen Reactions Cefaclor Other Reaction(s): rashes Cefdinir Swelling Other Reaction(s): rashes Cefprozil Other Reaction(s): rashes Dextromethorphan Hbr Other Reaction(s): rashes Doxycycline Hives Fluconazole Other Reaction(s): Other: See Comments Other reaction(s): Other: See Comments QT prolongation QT prolongation Guaifenesin Other Reaction(s): rashes Ibuprofen Hives Pseudoephedrine Other Reaction(s): rashes Tetracycline Other Reaction(s): hives Amoxicillin Rash Amoxicillin-Pot Clavulanate Rash Azithromycin Rash Other Reaction(s): rashes Erythromycin Rash Penicillin G Rash Sulfa Antibiotics Rash Other Reaction(s): Hives History of Present Illness, Associated Treatments and Results - OB History Para Term AB Living 3 1 1 0 2 0 SAB IAB Ectopic Multiple Live Births 0 0 0 0 0 # Outcome Date GA Lbr [place]/2nd Weight Sex Type Anes PTL Lv 3 Term 06/19/21 6 lb 14 oz F CS-LTranv Name: Yumiko 2 AB 2020 1 AB 2018 Obstetric Comments Pap Smear 09/30/22 wnl Review of Systems - Const: Denies appetite change, fever, chills. Allergy: Denies medication reaction. Ocular: Denies visual acuity change. ENT: Denies hearing change. Endoc: Denies weight loss. Resp: Denies dyspnoea, wheezing. Cardiac: Denies angina, palpitations. GI: Denies nausea, vomiting. Haem: Denies bleeding. : Denies incontinence. MSK: Denies arthralgias, joint oedema. Derm: Denies rash, hair loss. Neuro: Denies ataxia, tremor. Also see HPI for elements of ROS documented therein and for details of positive findings, which shall supersede the foregoing. Medication Documentation Review Audit Reviewed by Laurie Rogers MA (Senior Lead Java Developer) on 11/30/23 at 1539 Medication Order Taking? Sig Documenting Provider Last Dose Status fluticasone (Flonase) 50 MCG/ACT nasal spray [id number] Historical Provider, Active sertraline (Zoloft) 50 MG tablet [id number] No 75 mg. Historical Provider, Taking Active Past Medical History: Diagnosis Date Endometriosis Migraines (CMS/HCC) Neurocardiogenic syncope Past Surgical History: Procedure Laterality Date SECTION, LOW TRANSVERSE 06/19/2021 INNER EAR SURGERY ear tubes as a baby OTHER SURGICAL HISTORY IVF 3 rounds PELVIC LAPAROSCOPY endometriosis XR HYSTEROSALPINGOGRAM 04/29/2017 Family History Problem Relation Name Age of Onset Hypertension Mother Diabetes Maternal Grandmother Heart disease Maternal Grandmother Cancer Maternal Grandmother Mental illness Paternal Grandmother Diabetes Paternal Grandfather Physical Exam - General appearance, mentation, extraocular movements, facial strength and movement, hearing, upper and lower extremity strength and tone, sensation to gross testing, coordination, and gait are normalor at baseline unless noted below. General: Alert, cooperative, no distress, appears stated age Head: Normocephalic, without obvious abnormality, atraumatic Eyes: sclera anicteric Ears: no obvious hearing deficit Skin: Warm and dry Heart: Regular rate Lungs: Respirations unlabored Extremities normal, atraumatic, no cyanosis or edema Neurologic: alert and oriented Psych: cooperative with exam Diagnoses and all orders for this visit: Menorrhagia with regular cycle Pelvic pain in female Breast pain, left - Left diagnostic mammogram - Left breast US limited Reviewed pelvic US results at length with patient. Uterus WNL, no fibroids or polyps. Ovaries WNL, small functional cyst in left ovary, 1.5cm, simple. Did discuss options for bleeding/pain, includingbirth control. Patient will consider. Patient also has had off/on left breast pain, radiating to arm pit. Patient is still occasionally- no symptoms of mastitis. Will order diagnostic mammogram with US. Will call with results. ICD-10-CM 1. Menorrhagia with regular cycle N92.0 2. Pelvic pain in female R10.2 documented in this encounterBarnes-Jewish West [facility] [id number] History of Present illness Narrative* Riddhi Villar DO - 10/20/2023 3:15 PM EDT Images from the original note were not included. Riddhi Villar D.O. Obstetrics and Gynecology Patient: Jessica Valdez : 1990 (33 y.o.) Yearly Wellness Exam Date: 10/20/2023 Reason for Visit - Chief Complaint Patient presents with Gynecologic Exam Pt c/o dysuria. Urine collected. Pt would like to discuss Zoloft. Pt c/o legs being achy right before and during menses. Pt states will be more emotional a day or two before menses and a couple of days during menses. Pt notice more bloating. LMP 09/26/23 menses regular. PT will notice around menses bowel/bladder changes, will having burning sensation with urination. Visit Vitals BP 120/80 Ht 5' 7.5 Wt 224 lb LMP 09/26/2023 BMI 34.57 kg/m Smoking Status Never BSA 2.2 m Allergies Allergen Reactions Cefaclor Other Reaction(s): rashes Cefdinir Swelling Other Reaction(s): rashes Cefprozil Other Reaction(s): rashes Dextromethorphan Hbr Other Reaction(s): rashes Doxycycline Hives Fluconazole Other Reaction(s): Other: See Comments Other reaction(s): Other: See Comments QT prolongation QT prolongation Guaifenesin Other Reaction(s): rashes Ibuprofen Hives Pseudoephedrine Other Reaction(s): rashes Tetracycline Other Reaction(s): hives Amoxicillin Rash Amoxicillin-Pot Clavulanate Rash Azithromycin Rash Other Reaction(s): rashes Erythromycin Rash Penicillin G Rash Sulfa Antibiotics Rash Other Reaction(s): Hives History of Present Illness, Associated Treatments and Results - OB History Para Term AB Living 3 1 1 0 2 0 SAB IAB Ectopic Multiple Live Births 0 0 0 0 0 # Outcome Date GA Lbr [place]/2nd Weight Sex Type Anes PTL Lv 3 Term 06/19/21 6 lb 14 oz F CS-LTranv Name: Yumiko 2 AB 2020 1 AB 2017 Obstetric Comments Pap Smear 09/30/22 wnl Review of Systems - General: Chills denies. Allergy/Immunology: Rash Denies. ENT: Denies Difficulty swallowing. Endocrine: Denies Cold intolerance denies. Heat intolerance denied. Respiratory: Denies Chest pain denies. Shortness of breath denies. Breast: Denies Bloody nipple discharge denies. Breast lump denies. Cardiovascular: Denies Chest pain. Gastrointestinal: Abdominal pain denies. Blood in stool denies. Hematology: Easy bruising denies. Prolonged bleeding denies. Women Only: Breast lump denies. Vaginal bleeding between periods is denied. Vaginal discharge/itching denied. Genitourinary: Blood in urine denies. Painful urination denies. Incontinence denies. Skin: Hair changes. Neurologic: Seizures denied. Stroke denies. Psychiatric: Anxiety denies. Depressed mood denies. Medication Documentation Review Audit Reviewed by Laurie Rogers MA (Senior Lead Java Developer) on 10/20/23 at 1534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
[2024-07-07 11:24] LABS: Basophils Percent Auto 0.5 % (0.2-2.0); Eosinophils Percent Auto 0.2 % (0.9-7.0); Hematocrit 41.9 % (36.0-48.0); Hemoglobin 13.9 g/dL (12.0-16.0); Immature Granulocytes Abs Auto 0.02 10^3/uL (0.00-0.03); Immature Granulocytes Pct Auto 0.2 % (0.0-0.5); Lymphocytes Absolute Auto 2.1 10^3/uL (1.2-3.8); Lymphocytes Percent Auto 23.2 % (20.5-60.0); Mean Corpuscular HGB Conc 33.2 g/dL (29.9-35.2); Mean Corpuscular Hemoglobin 30.2 pg (26.7-34.0); Mean Corpuscular Volume 91.1 fL (81.0-99.0); Mean Platelet Volume 8.9 fL (9.5-13.5); Monocytes Absolute Auto 0.5 10^3/uL (0.3-0.8); Monocytes Percent Auto 5.3 % (1.7-12.0); Neutrophils Absolute Auto 6.3 10^3/uL (1.4-6.5); Neutrophils Percent Auto 70.6 % (43.0-75.0); Platelet Count 320 10^3/uL (150-450); Red Cell Distribution Width 12.1 % (11.0-15.0); White Blood Count 8.9 10^3/uL (4.0-11.0)
[2024-07-07 11:27] LABS: Bilirubin Urine NEGATIVE (NEGATIVE); Blood Urine MODERATE (NEGATIVE); Clarity Urine CLEAR (CLEAR); Color Urine LT. YELLOW (YELLOW); Glucose Urine UA NEGATIVE (NEGATIVE); Ketones Urine NEGATIVE (NEGATIVE); Leukocyte Esterase Urine TRACE (NEGATIVE); Nitrite Urine NEGATIVE (NEGATIVE); Protein Urine NEGATIVE (NEG/TRACE); Specific Gravity Urine <=1.005 (1.005-1.025); Urobilinogen Urine 0.2 EU/dL (0.2-1.0); pH Urine 6.5 (5.0-9.0)
[2024-07-07 11:29] LABS: Urine Microscopic Indicated YES
[2024-07-07 11:37] LABS: Bacteria Urine TRACE #/HPF (NONE SEEN); Cast Seen? NONE SEEN #/LPF (NONE SEEN); Crystals Seen? None Seen #/HPF (None Seen); Mucus Urine NONE SEEN (NONE SEEN); RBC Urine 0-2 #/HPF (0-2); Squamous Epithelial Cell Urine RARE #/LPF (NONE/RARE); WBC Urine 0-2 #/HPF (NONE SEEN)
[2024-07-07 11:38] LABS: Urine Culture Indicated YES-FRMC
[2024-07-07 11:40] LABS: Alanine Aminotransferase 21 U/L (14-59); Albumin Globulin Ratio 1.3; Alkaline Phosphatase 61 U/L (46-116); Anion Gap 14.6; Aspartate Amino Transferase 13 U/L (15-37); BUN Creatinine Ratio 11.6; Bilirubin Total 0.5 mg/dL (0.2-1.0); Calcium 9.1 mg/dL (8.5-10.1); Carbon Dioxide 28.3 mmol/L (21.0-32.0); Chloride 105 mmol/L (98-107); Estimated GFR (African America >60 (>=60 mL/min/1.73m^2); Estimated GFR (Non-African Ame >60 (>=60 mL/min/1.73m^2); Globulin 3.1 g/dL; Glucose 107 mg/dL (74-106); Potassium 3.9 mmol/L (3.5-5.1); Sodium 144 mmol/L (136-145); Total Protein 7.1 g/dL (6.4-8.2)
[2024-07-07 12:04] LABS: HCG Quantitative 1490 mIU/mL
--- NOTE | 2024-07-07 12:17 | ED.PREGNANC1 ---
HPI - General Chief complaint: Vaginal Bleeding Stated complaint: 5WEEKS WITH BLEEDING Time Seen by Provider: 07/07/24 11:09 Source: patient Mode of arrival: walk-in History of Present Illness HPI Narrative: The patient have a history of 3 para 1 coming to the ER with a concern of vaginal spotting, she mentioned that she noted only some blood when she wipes, but she also mentioned that she has burning with urination The patient also have some lower back pain both sides No fever had some chills today The patient had a evaluation yesterday in another facility ER where she had a urinalysis but she does not know if she had a urine infection or not The patient had 2 miscarriages before and one of them was possibly ectopic although not confirmed she has been complaining of lower abdominal discomfort mostly to the left side Related Data Previous Rx's ?Medication ?Instructions ?Recorded clotrimazole 1 % vaginal cream 1 appful vaginal .qhs 7 days #45 07/07/24 grams Review of Systems ROS Status of ROS 10 or more systems reviewed and unremarkable except as noted in history and below PFSH PFSH Social History Little interest or pleasure in doing things: not at all Feeling down, depressed, or hopeless: not at all Exam Narrative Exam Narrative: Nurses notes and vital signs reviewed and patient is not hypoxic. General: Well-appearing and in no apparent distress. Skin: Warm, dry, no pallor noted. No rash. Head: Normocephalic, atraumatic. Neck: Supple, non-tender. Eye: Pupils are equal, round and EOMI. No scleral icterus. Ears, Nose, Mouth, and Throat: TM are clear, no nasal mucosal hypertrophy. Oral mucosa is moist, no posterior oropharynx erythema, uvula is mid-line Cardiovascular: Regular Rate and Rhythm without murmur, gallop or rub. Respiratory: No accessory muscle use or respiratory distress. Lungs are clear to auscultation, no wheezing, rales or rhonchi Chest Wall: no tenderness Back: No midline thoracic or lumbar vertebral tenderness. No CVA tenderness Musculoskeletal: normal ROM, no calf or popliteal tenderness, no lower extremity edema/swelling GI: Abdomen is soft, non-distended. Normal bowel sounds. No masses appreciated. No tenderness to palpation but the patient complained of subjective pain when palpating the suprapubic and left lower quadrant Neurological: A&O x4. No cranial nerve dysfunction observed. No truncal ataxia. Moves all extremities. Sensation intact. Psychiatric: Cooperative and interactive. Normal mood and affect. Constitutional Vital Signs, click to edit/add: Last Vital Signs Temp 97.7 F 07/07/24 11:05 Pulse 78 07/07/24 15:06 Resp 14 07/07/24 15:06 BP 130/84 07/07/24 15:06 Pulse Ox 98 07/07/24 15:06 O2 Del Method Room Air 07/07/24 15:06 Course Vital Signs Vital signs: Vital Signs Temperature 97.7 F 07/07/24 11:05 Pulse Rate 85 07/07/24 11:05 Respiratory Rate 18 07/07/24 11:05 Blood Pressure 135/82 07/07/24 11:05 Pulse Oximetry 98 07/07/24 11:05 Temperature 97.7 F 07/07/24 11:05 Pulse Rate 78 07/07/24 15:06 Respiratory Rate 14 07/07/24 15:06 Blood Pressure 130/84 07/07/24 15:06 Pulse Oximetry 98 07/07/24 15:06 Oxygen Delivery Method Room Air 07/07/24 15:06 MDM - OB/Uterine Contractions MDM Narrative Medical decision making narrative: The patient CBC and chemistry showed no acute pathology The patient blood type is a positive And urine does not show any infection but the patient have some yeast infection as well as some bacteria ----the patient after discussing this with her she will follow up for the bacteriuria as outpatient with her STENOGRAPHER SECRETARY but right now should be covered with clotrimazole for Tmaiko vaginitis at this is the most irritating symptom for her right now The patient ultrasound shows no intrauterine and the patient have left ovarian cysts I discussed the case with the STENOGRAPHER SECRETARY doctor on-call Dr. Liriano and he agreed that the patient just can follow-up at the outpatient with a blood workup hCG quantitative on Tuesday which is the of this month to 2 days from now Patient to come back to the ER in case of any pain or increasing bleeding Patient understand the importance of follow-up to avoid missing ectopic diagnosis Lab Data Labs: Lab Results 07/07/24 07/07/24 Range/Units 11:10 11:19 WBC 8.9 (4.0-11.0) 10^3/uL RBC 4.60 (4.20-5.40) 10^6/uL Hgb 13.9 (12.0-16.0) g/dL Hct 41.9 (36.0-48.0) % MCV 91.1 (81.0-99.0) fL MCH 30.2 (26.7-34.0) pg MCHC 33.2 (29.9-35.2) g/dL RDW 12.1 (11.0-15.0) % Plt Count 320 (150-450) 10^3/uL MPV 8.9 L (9.5-13.5) fL Neut % (Auto) 70.6 (43.0-75.0) % Lymph % (Auto) 23.2 (20.5-60.0) % [place] % (Auto) 5.3 (1.7-12.0) % Eos % (Auto) 0.2 L (0.9-7.0) % Baso % (Auto) 0.5 (0.2-2.0) % Neut # (Auto) 6.3 (1.4-6.5) 10^3/uL Lymph # (Auto) 2.1 (1.2-3.8) 10^3/uL [place] # (Auto) 0.5 (0.3-0.8) 10^3/uL Eos # (Auto) 0.0 (0.0-0.7) 10^3/uL Baso # (Auto) 0.0 (0.0-0.1) 10^3/uL Abs Immat Gran (auto) 0.02 (0.00-0.03) 10^3/uL Imm/Tot Granulo (auto) 0.2 (0.0-0.5) % Sodium 144 (136-145) mmol/L Potassium 3.9 (3.5-5.1) mmol/L Chloride 105 (98-107) mmol/L Carbon Dioxide 28.3 (21.0-32.0) mmol/L Anion Gap 14.6 BUN 10.0 (7.0-18.0) mg/dL Creatinine 0.86 (0.55-1.02) mg/dL Est GFR ( Amer) >60 (>=60 mL/min/1.73m^2) Est GFR (Non-Af Amer) >60 (>=60 mL/min/1.73m^2) BUN/Creatinine Ratio 11.6 Glucose 107 H (74-106) mg/dL Calcium 9.1 (8.5-10.1) mg/dL Total Bilirubin 0.5 (0.2-1.0) mg/dL AST 13 L (15-37) U/L ALT 21 (14-59) U/L Alkaline Phosphatase 61 (46-116) U/L Total Protein 7.1 (6.4-8.2) g/dL Albumin 4.0 (3.4-5.0) g/dL Globulin 3.1 g/dL Albumin/Globulin Ratio 1.3 HCG, Quant 1490 mIU/mL Urine Color Lt. yellow (YELLOW) Urine Clarity Clear (CLEAR) Urine pH 6.5 (5.0-9.0) Ur Specific [place] <=1.005 A (1.005-1.025) Urine Protein Negative (NEG/TRACE) mg/dL Urine Glucose (UA) Negative (NEGATIVE) mg/dL Urine Ketones Negative (NEGATIVE) mg/dL Urine Occult Blood Moderate A (NEGATIVE) Urine Nitrite Negative (NEGATIVE) Urine Bilirubin Negative (NEGATIVE) Urine Urobilinogen 0.2 (0.2-1.0) EU/dL Ur Leukocyte Esterase Trace A (NEGATIVE) Urine RBC 0-2 (0-2) #/HPF Urine WBC 0-2 A (NONE SEEN) #/HPF Ur Squamous Epith Cells Rare (NONE/RARE) #/LPF Urine Crystals None seen (None Seen) #/HPF Urine Bacteria Trace A (NONE SEEN) #/HPF Urine Casts None seen (NONE SEEN) #/LPF Urine Mucus None seen (NONE SEEN) Urine Yeast Seen A (NONE SEEN) Ur [place] Ind[place] [place] A Positive Antibody Screen Negative Discharge Plan Discharge Chief Complaint: Vaginal Bleeding Clinical Impression: Vaginal bleeding affecting early , Tamiko vaginitis Patient Disposition: Home, Self-Care Time of Disposition Decision: 14:41 Condition: Good Mode of Transportation: Private Vehicle Prescriptions / Home Meds: New clotrimazole 1 % cream 1 appful vaginal .qhs 7 Days Qty: 45 0RF Print Language: Khmer Instructions: Ectopic (DC), Threatened Miscarriage (ED), Yeast Infection (ED) Referrals: BAKARI ESCALERA [Primary Care Provider, Family Practice] - 1 week KELLIE LEDEZMA [Physician, Unknown] - As soon as possible Referral Note: [address] [place], [place] [address] Discharge Date/Time: 07/07/24 15:06
[2024-07-07 13:57] VITALS: PULSE 76
[2024-07-07 15:06] VITALS: BP 130/84; PULSE 78; O2SAT 98
== END 2024-07-07 15:06 | disposition home or self-care (01) ==
PROVIDERS: Emergency Provider Emergency Medicine; PCP Family Medicine
DX: O20.9 Hemorrhage in early pregnancy, unspecified (principal); O98.811 Other maternal infectious and parasitic diseases complicating pregnancy, first trimester; B37.31 Acute candidiasis of vulva and vagina; O34.81 Maternal care for other abnormalities of pelvic organs, first trimester; N83.202 Unspecified ovarian cyst, left side; Z3A.01 Less than 8 weeks gestation of pregnancy
CPT/HCPCS: 36415; 76817; 80053; 81001; 84702; 85025; 86850; 86900; 86901; 87086; 99285

== ENCOUNTER 2024-07-10 10:39 | Day surgery (SDC) | payer OTHER, SELFPAY ==
--- OUTSIDE RECORDS SUMMARY | 2024-07-07 02:12 | XMS_ITS | Continuity of Care Document ---
Author Organization [facility] Address [address] [place] [address] Phone Care Team Providers Care Talent Engineer Name Role Phone John Pemberton DO Primary Care Provider John Pemberton DO Attending Provider Riddhi Villar DO Attending Provider Care Teams Patient Care Team Team Status: Active Member Role Status Elizabet Pemberton DO Primary Care Provider Active Visit Care Team Team Status: Inactive Member Role Status Elizabet Pemberton DO Primary Care Provide r, Attending Provider Active Start: April 18, 2024 End: April 18, 2024 Visit Care Team Team Status: Inactive Member Role Status Elizabet Pemberton DO Primary Care Provide r, Attending Provider Active Start: May 07, 2024 End: May 07, 2024 Visit Care Team Team Status: Inactive Member Role Status Elizabet Pemberton DO Primary Care Provide r, Attending Provider Active Start: June 06, 2024 End: June 06, 2024 Visit Care Team Team Status: Inactive Member Role Status Elizabet Pemberton DO Primary Care Provider Active S tart: June 29, 2024 End: June 29, 2024 Riddhi Villar DO Attending Provider Active S tart: June 29, 2024 End: June 29, 2024 Visit Care Team Team Status: Inactive Member Role Status Dates John Pemberton DO Primary Care Provider Active S tart: July 02, 2024 End: July 02, 2024 Riddhi Villar DO Attending Provider Active S tart: July 02, 2024 End: July 02, 2024 Chief Complaint and Reason for Visit Chief Complaint Admit Date telephone/dizziness April 18, 2024 11:16am dizziness May 07, 2024 3:3 6pm R42 June 06, 2024 7:3 3am See order June 29, 2024 10:39a m Reason for Visit Admit Date Anxiety April 18, 2024 11:16am Dizziness April 18, 2024 11:16am Acute sinusitis May 07, 2024 3:3 6pm Anxiety May 07, 2024 3:3 6pm Dizziness May 07, 2024 3:3 6pm Dyspnea on exertion May 07, 2024 3:3 6pm Insomnia May 07, 2024 3:3 6pm Restless leg syndrome May 07, 2024 3 :36pm Allergies, Adverse Reactions, Alerts Allergen Type Severity Reaction Last Updated Verified Status amoxicillin Allergy Unknown Rash May 07, 2024 10:58am Yes Active azithromycin Allergy Unknown Rash May 07, 2024 10:58am Yes Active cefdinir Allergy Unknown Rash May 07, 2024 10:58am Yes Active cefuroxime Allergy Unknown rash May 07, 2024 10:58am Yes Active doxycycline Allergy Unknown finger swelling , joints swollen May 07, 2024 10:58am Yes Active erythromycin base Allergy Unknown rash April 212024 10:58am Yes Active fluconazole Allergy Unknown QT Prolongation May 072024 10:58am Yes Active sulfacetamide Allergy Unknown rash May 07, 2024 10:58am Yes Active ibuprofen Adverse Reaction Unknown Rash May 07, 2024 10:58am Yes Active Penicillins Adverse Reaction Unknown Rash May 07, 2024 10:58am Yes Active sulfamethoxazole Adverse Reaction Unknown Rash May 07, 2024 10:58am Yes Active trimethoprim Adverse Reaction Unknown Rash May 07, 2024 10:58am Yes Active Social History Smoking Status Status Start Date End Date Date of Observa tion Never smoked tobacco (finding) April 18, 2024 11:40am Observation Status Observation Response Date of Response Patient Sex Female July 03, 2024 1 2:05am Assigned Sex Female 1990 Family History Relationship Condition Age at Onset Recorded Date/T maco grandparent Unknown grandparent Unknown Diabetes mellitus Unknown Heart disease Unknown grandparent Diabetes mellitus Unknown grandparent Family history of mental disorder Unknown Alzheimer's dementia Unknown mother Diverticulitis Unknown Problems Active Problems Medical Problem Onset Date Status PMDD (premenstrual dysphoric disorder) Active Insomnia Active Dyspnea on exertion Active delivery delivered Acti ve Dizziness Active Acute sinusitis Active Anxiety Active Cough Active Cervical lymphadenopathy Active Restless leg syndrome Active S/P Active Weight gain Active Iron deficiency anemia Active First trimester bleeding Active Acute nasopharyngitis Active Nausea & vomiting Active Abdominal pain Active Acute left lower quadrant pain A ctive Medications Medication Status Dose Units Route Directions Qty Days St art Date Stop Date End Date Instructions Prednisone 20 mg tablet Discont inued 0 PO Daily 08 11April 25, 2023 1:00am April 25, 2023 5:30p m 20 MG 3 a day x3 days, then take 2 a day x3 days and then 1 a day x3 days with food or milk. orally daily; Prednisone 20 mg tablet Discont inued 0 PO Daily 08 11April 25, 2023 5:30pm June 27, 2023 3:00p m 20 MG 3 a day x3 days, then take 2 a day x3 days and then 1 a day x3 days with food or milk. orally daily; Sertraline (Zoloft) 25 mg tablet Discont inued 25 MG PO Daily 30 Octobe r 2023 12:00a m Octob er 2023 3:11p m Sertraline (Zoloft) 25 mg tablet Discont inued 25 MG PO Daily 30 Octobe r 2023 3:11pm Decem macey 2023 12:51 pm Sertraline (Zoloft) 25 mg tablet Discont inued 0 PO Daily 15 30 Decemb er 2023 12:50p m Febru sulema 2024 12:10 pm take 1/2 of a 25 MG tablet orally daily; Penicillin V Potassium 500 mg tablet Discont inued 500 MG PO Three times daily 30 10 Decemb er 2023 10:55a m Febru sulema 2024 12:09 pm Penicillin V Potassium 500 mg tablet Discont inued 500 MG PO Three times daily 30 May 04, 2024 9:30am May 25, 2024 1:45p m Penicillin V Potassium 500 mg tablet Active 500 MG PO Three times daily 21 May 25, 2024 1:45pm Fludrocortis one 0.1 mg tablet Discont inued 0.1 MG PO Twice daily June 26, 2017 12:00a m June 27, 2023 3:00p m Loratadine (Claritin) 10 mg Tablet Discont inued 10 MG PO Daily June 26, 2017 12:00a m June 27, 2023 3:00p m Pnv Cmb#[id number] us Fumarate-Fa () 28 mg iron- 800 mcg Tablet Discont inued 1 TAB PO Daily June 26, 2017 12:00a m Febru sulema 2024 12:09 pm Progesterone 50 mg/mL Oil Discont inued 2 ML IM As Directed [facility] 2018 1:00am June 22, 2021 10:30 am EVERY OTHER DAY Progesterone Micronized 200 mg Capsule Discont inued 400 MG PO Daily at bedtime [facility] 2018 1:00am June 22, 2021 10:30 am Estradiol 2 mg Tablet Discont inued 2 MG PO Twice daily [facility] 2018 1:00am June 22, 2021 10:30 am NOT PO....INSERT PILL VAGINALLY Progesterone Micronized (Endometrin) 100 mg Insert Discont inued 100 MG VAGINA L Three times daily [facility] 2018 1:00am June 22, 2021 10:30 am Ondansetron 4 mg tablet,disin tegrating Discont inued 4 MG PO Q6H as needed for nausea and vomiting 14 [facility] 2018 1:00am June 22, 2021 10:30 am Sertraline (Zoloft) 100 mg Tablet Discont inued 100 MG PO Daily June 19, 2021 12:00a m June 27, 2023 3:03p m Bupropion Hcl (Wellbutrin Xl) 150 mg Tablet Extended Release 24 Hr Discont inued 150 MG PO Every morning June 19, 2021 12:00a m June 27, 2023 2:59p m Ibuprofen 600 mg tablet Discont inued 600 MG PO Q6H as needed for pain June 22, 2021 12:00a m June 27, 2023 3:00p m Docusate Sodium (Colace) 100 mg capsule Discont inued 100 MG PO Twice daily as needed for constipatio n 60 June 22, 2021 10:29a m June 27, 2023 2:59p m Tramadol 50 mg tablet Discont inued 50 MG PO Q6H as needed for pain 30 June 22, 2021 12:00a m June 27, 2023 3:01p m Sertraline (Zoloft) 100 mg tablet Discont inued 50 MG PO Daily June 27, 2023 2:59pm June 27, 2023 3:04p m Sertraline (Zoloft) 50 mg tablet Discont inued 75 MG PO June 27, 2023 12:00a m Octob er 2023 1:46p m 1 and 1/2 tablet Orally Once a day; Fluticasone Propionate 50 mcg/actuatio n spray,suspen vanessa Discont inued 2 SPRAY INTRAN PREET Daily June 27, 2023 12:00a m Octob er 2023 1:46p m [employer] sprays each nostril Nasally Once a day; Note: Source Status: Refill; Refills: 11; Provider: Nilay Thomas Penicillin V Potassium 500 mg tablet Discont inued 500 MG PO Three times daily 30 June 27, 2023 12:00a m Octob er 2023 1:45p m Fluticasone Propionate 50 mcg/actuatio n spray,suspen vanessa Active 2 SPRAY INTRAN PREET Daily Octobe r 2023 1:45pm F Sertraline (Zoloft) 50 mg tablet Discont inued 50 MG PO Daily Octobe r 2023 1:45pm Octob er 2023 11:20 am Lorazepam (Ativan) 0.5 mg tablet Active 0.5 MG PO Twice daily as needed for anxiety 14 7 ry 2024 1:00am Procedures Procedure Date Performed Status MR head/brain wo/w con June 06, 2024 7:37am c ompleted Relevant Diagnostic Tests and/or Laboratory Data Laboratory Results Test Date/Time Result Interpretation Reference Range Result Comment Performing Site Human Chorionic Gonadotropin , Quant June 29, 2024 10:40am 28.39 mIU/mL Approximate Approximate hCG Gestational Age Range (mIU/ml) (weeks)0.2-1 5-50 1-2 50-500 2-3 100-5,000 3-4 500-10,000 4-5 1,000-50,000 5-6 10,000-100,00 0 6-8 15,000-200,00 0 8-12 10,000-100,00 0 [facility] [id number] [address] [place] [address] Human Chorionic Gonadotropin , Quant July 02, 2024 8:15am 169.46 mIU/mL Approximate Approximate hCG Gestational Age Range (mIU/ml) (weeks)0.2-1 5-50 1-2 50-500 2-3 100-5,000 3-4 500-10,000 4-5 1,000-50,000 5-6 10,000-100,00 0 6-8 15,000-200,00 0 8-12 10,000-100,00 0 [facility] [id number] [address] [place] [address] Diagnostic Imaging Reports Author Layton Samuels [facility] Authored June 06, 2024 2:2 7pm Report Dictated Date/Time Dictated By Status Radiology Report June 06, 2024 2:27pm Layton Samuels MD completed [facility] [place] [address] MRI Report Signed Patient: Jessica Valdez MR#: [id number] : 1990 Acct:[id number] Age/Sex: 34 / F ADM Date: 5 Loc: MR Room: Type: [facility] Attending Dr: John Pemberton DO Copies to: John Pemberton DO~ Ordering Provider: John Pemberton DO Date of Service: 06/06/24 MR/MR head/brain wo/w con: R42 - Dizziness and giddiness MRI BRAIN WITHOUT AND WITH INTRAVENOUS CONTRAST CLINICAL DATA: Dizziness, posterior head and neck pressure COMPARISON: MRI brain 02/01/2023 Multiecho, multiplanar imaging of the brain was performed before and after intravenous administration of 19 mL of ProHance. FINDINGS: No restricted diffusion. Ventricles and sulci sulci normal size and configuration for patient's age. There are few scattered foci of nonspecific T2 prolongation white matter, unchanged. There are stable 3 mm of cerebellar tonsillar ectopia. Cerebellar tonsils maintain normal rounded configuration. No shift midline structures. The paranasal cisterns are patent. No abnormal GRE signal. No abnormal postcontrast enhancement. MR/MR head/brain wo/w con IMPRESSION: Stable examination. Stable nonspecific foci of T2 prolongation within the white matter, no evidence of progression. Stable 3 mm cerebellar tonsillar ectopia Impression dictated by: Layton Samuels M.D.06/06/2024 2:34 PM Dictation Location: [place] [address] Transcribed By: [facility] 06/06/24 1434 Dictated By: Layton Samuels MD 06/06/24 1427 Signed By: <Electronically signed by Layton Samuels MD in OV> 06/06/24 1434 Vital Signs Vital Reading Result Reference Range Collection Date/Time Height 70 [in_i] May 07 3:28pm Weight 103.87 kg May 07 3:28pm Body Temperature 98.3 [degF] 97.6-99.0 May 07, 2024 3:28pm Heart Rate 100 /min 60-100 May 07 3:28pm Oxygen saturation by Pulse oximetry 99 % 95-100 May 07, 2024 3:2 8pm BP Systolic 118 mm[Hg] 100-140 May 07 3:28pm BP Diastolic 74 mm[Hg] 60-100 May 07 3:28pm BMI (Body Mass Index) 32.8 kg/m2 May 07, 2024 3:28pm Height 70 [in_i] June 05 7:44am Weight 95.25 kg June 05 7:44am Advance Directives Advance Directive Response Recorded Date/ Time Advance Directives No March 12:40pm Insurance Providers Guarantor Jessicadinh Chávezkatlin Address [address] [place] [id number] Contact Info. Home Phone: Payer Policy Id Coverage Id Subscriber's Name Subscriber Id Effective Date Expiration Date MMO [id number] Jessica Valdez [id number] [employer] [id number] Jessica Valdez [id number] [employer] [id number] Jessica Valdez [id number] [facility] [id number] Jessica Valdez [id number] [employer] [id number] Jessica Valdez [id number] Encounters Encounter Location(s) Arrival/Admit Date Discharge/Depart Date Provider(s) Departed Physician/Prov ider Office Visit [facility] Physician [facility] April 18, 2024 12:16pm April 18, 2024 12:43pm John Pemberton DO Departed Physician/Prov ider Office Visit [facility] May 07, 2024 3:36pm May 07, 2024 4:15pm John Pemberton DO Departed [facility] June 06, 2024 7:33am June 06, 2024 7:34am John Pemberton DO Departed [facility] June 29, 2024 10:39am June 29, 2024 10:40am Riddhi Villar DO Departed [facility] July 02, 2024 8:15am July 02, 2024 8:16am Riddhi Villar DO Recent Diagnosis Onset Date Admit Date Anxiety April 18 025 11:16am Dizziness April 18 025 11:16am Acute sinusitis May 07, 2024 3:36pm Anxiety May 07, 2024 3:36pm Dizziness May 07, 2024 3:36pm Dyspnea on exertion May 07, 2024 3:36pm Insomnia May 07, 2024 3:36pm Restless leg syndrome April 3:36pm Assessments Author John Pemberton [facility] Authored April 18, 2024 12:45pm The above note written by __ _Dorcas Rush____ acting as human recorder, note dictated by Dr. Marley .I performed the above HPI, ROS, and Examination. I formulated and dictated the treatment plan and was present for entire encounter. John Pemberton D.O. Author John Pemberton [facility] Authored May 07, 2024 4:2 1pm The above note written by __ _Dorcas Rush____ acting as human recorder, note dictated by Dr. Marley .I performed the above HPI, ROS, and Examination. I formulated and dictated the treatment plan and was present for entire encounter. John Pemberton D.O. Plan of Treatment Author Dorcas Rush [facility] Authored April 18, 2024 12:38pm She voices that her medicati on was switched from Zoloft to Prozac 20 MG and she is struggling. Her anxiety has been terrible since she started the Prozac. She took 12.5 MG of Zoloft and 10 MG of Prozac together for a week and then met with her psychiatrist who expected more improvement and told her she could continue with this for two more weeks if she wanted or go with just the Prozac. Her max dose of Zoloft was 40 MG (?). She developed chills, and dizziness the next day. She was then on just the Prozac and was told to take just 10 MG of Prozac for a week, today was her last day of this. She has had bad anxiety, states she has anxiety . She is looking into EMDR therapy at this time. Because she does not feel right she is concerned about taking any medication. She is tearful on the phone today. Her psychiatrist is going to do a gene swab to see what medication would work the best for her, but she voices that the Prozac derailed her. She had chest pain a few weeks ago and went to the ER because of this but her cardiac work up was negative. She is told that the number one sign of anxiety is chest pain. Chest x-ray was negative. She is scheduled for EMDR on 05/17/24 but is trying to be seen sooner. She follows with [id number] for psychiatry. I can provide her with Ativan to have on hand to use if needed. She cannot drive or drink alcohol after taking. She would like to have this available to use if needed. She cannot take this multiple times a day. Side effects/risks/benefits of medication were reviewed. She voices that her psychiatrist will not call this in for her. She can take 1/2 tablet at a time if needed or if she feels she needs 1 tablet she can take 1 tablet. She voices that she has been very dizzy and she has had headaches. Her left ear has felt muffled. She has never had this before. She did go to on 04/13/24 for evaluation. She has had sinus headaches which have felt similar but also different. She voices that she feels tingling, pounding and dizziness in the back of her neck. She does not have any brown or green nasal drainage. Her muffled hearing comes and goes. She has been using Fluticasone nasal spray and should continue with this. I did offer to treat her with Pen VK but she does not want to use this unless needed. She prefers not to do a CT scan unless absolutely needed. She has brain fog and mixes her words up, forgets what she is going to say but feels this is due to anxiety. She does not get lost going home. She is working and is able to work. Signs/symptoms of stroke were reviewed, explained to her that this would be rare for her age, but if she has any signs of stroke she should call 911 or go to the nearest ER for evaluation. More likely she feels dizzy because she is coming off the SSRI medication. Will treat with Ativan and expect her to feel better once she takes one of these. Any sudden onset worst headache of her life she should call 911 for immediate attention. Author Dorcas Rush [facility] Authored May 07, 2024 4:1 4pm If she turns her head she ge ts nauseous and has a hard time focusing. She has had some physical therapy done for dizziness (Dorian Adams). She did go to [facility] for evaluation and then had an MRI of the brain done in Jan (2022). I did review the MRI of the brain done in 01/2023 with her today. Results showed 3 mm of cerebellar tonsillar ectopia. Focal T2 and FLAIR hyperintense foci are noted in the periventricular and subcortical white matter, nonspecific and these were present in the prior exam. At the time she stopped Wellbutrin and her dizziness improved. She was on BuSpar last year and after she suffered a concussion she stopped that medicine and her dizziness improved for a short time. She does not fall or trip but just moving her eyes makes her dizzy. When pushing down on her head on exam she voices that this relieves her symptoms a little. I did recommend that she have a repeat MRI done and she agrees. An order is provided. If her MRI has not changed then I would recommend she return to see Dorian Adams for evaluation of the dizziness. She is in agreement with this plan. Her psychiatrist (Gris Navarro from [place] [id number]) did a cheek swab and there are really no SSRI's that she can take. She had serotonin syndrome from the [facility]. She is not taking any medication for 12 weeks. 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 She voices that she was doing better but then her grandma and then she found out today her friends dad today. She is doing talk therapy and has started EMDR therapy. She is tearful in the office today. If the MRI of the brain is negative I did recommend that she continue to follow with the specialist. We discussed the Ativan again, but due to her nursing I did recommend that she avoid taking the Ativan. Her psychiatrist recommended she take Ashwagandha but I did recommend she check with her trusted pharmacist before taking this due to nursing. If she stops nursing and has someone to help her at home with her children and has symptoms she can take the Ativan and see if this helps her symptoms. She is not having as much pressure in her head since she started the PEN VK. She is to finish the medication as directed. She is becoming winded very easily, and after she eats her heart races. She has no breath when she is going up the stairs. She is having a stress test done on 05/09/24 ordered by her shellfish checker. She walks for exercise, but not in the winter. She will walk down the [place] to her mothers house but is winded by the time she gets there. She is to have the stress test done as scheduled. She follows with Dr. Owens for evaluation. She voices that she tried the carnivore diet but when she did this her heart would race more so she was unable to follow that diet plan. She admits she is having difficulty sleeping. I did advise her that not being able to sleep can increase anxiety, make her symptoms worse. She gets restless leg syndrome and voices that it is worse prior to her menstrual cycle. This causes her anxiety to worsen as well. I did advise her that she should speak with her psychiatrist about taking Klonopin which can help with anxiety and restless leg syndrome. She should not be nursing if she is going to take that medicine. She did start Magnesium because of the RLS and has had diarrhea, I did advise her that Magnesium can cause diarrhea. She would like to see Dr. Mcfarland for stomach issues. Future Tests Future scheduled test information is unavailable Pending Tests Pending diagnostic test information is unavailable Future Visits Future appointment information is unavailable Referrals to Other Providers Referral information is unavailable Future Procedures Future procedure information is unavailable Future Medications Future medication information is unavailable Patient Instructions Patient instructions are unavailable
[2024-07-10] VITALS (13 sets, daily range): BP systolic 100–125; BP diastolic 47–95; PULSE 93–109; TEMP 36.7–36.8; O2SAT 98–100; BMI 31.6
--- NOTE | 2024-07-10 10:54 | PC.NURSE ---
Patient reports approx. 5 weeks and is having lower abdominal and lower back pain. Small amount of bright red vaginal bleeding present.
--- NOTE | 2024-07-10 11:00 | ED.GENADUL1 ---
HPI HPI - General Adult General Chief complaint: Vaginal Bleeding Stated complaint: 5 1/2 WEEKS BLEEDING CRAMPING BACK PAIN Time Seen by Provider: 07/10/24 10:41 Source: patient Mode of arrival: walk-in Limitations: no limitations History of Present Illness HPI narrative: This 34-year-old female who is 4 para 1 AB 2, with an LMP on June 02 who was seen in this ED 3 days ago with vaginal spotting. Her hCG was 1490. Pelvic ultrasound showed an empty uterus, cystic areas in the left ovary and a small amount of fluid in the cul-de-sac. She had outpatient hCG performed yesterday which showed a level greater than 3000. She comes in today because of more vaginal bleeding and spotting and lower back and rectal pressure pain. Related Data Home Medications ?Medication ?Instructions ?Recorded ?Confirmed No Known Home Medications 07/10/24 07/10/24 Allergies Allergy/AdvReac Type Severity Reaction Status Date / Time azithromycin Allergy Rash Verified 07/10/24 10:44 doxycycline Allergy Rash Verified 07/10/24 10:44 Sulfa (Sulfonamide Allergy Rash Verified 07/10/24 10:45 Antibiotics) cefdinir (From Omnicef) AdvReac Joint Pain Verified 07/10/24 10:44 Review of Systems ROS Status of ROS 10 or more systems reviewed and unremarkable except as noted in history and below [facility] Social History Little interest or pleasure in doing things: not at all Feeling down, depressed, or hopeless: not at all Exam Narrative Exam Narrative: Afebrile and minimally distressed. HEENT exam is normal to inspection. Neck is supple. Lungs are clear to auscultation bilaterally with good air entry. Heart has regular rate and rhythm. Abdomen is protuberant and soft with diffuse lower abdominal tenderness more so in the left lower quadrant. Extremities warm and dry. Constitutional Vital Signs, click to edit/add: Last Vital Signs Temp 98.1 F 07/10/24 10:45 Pulse 93 H 07/10/24 10:45 Resp 20 07/10/24 10:45 BP 118/95 H 07/10/24 10:45 Pulse Ox 100 07/10/24 10:45 O2 Del Method Room Air 07/10/24 10:45 Course Vital Signs Vital signs: Vital Signs Temperature 98.1 F 07/10/24 10:45 Pulse Rate 93 H 07/10/24 10:45 Respiratory Rate 20 07/10/24 10:45 Blood Pressure 118/95 H 07/10/24 10:45 Pulse Oximetry 100 07/10/24 10:45 Oxygen Delivery Method Room Air 07/10/24 10:45 Temperature 98.1 F 07/10/24 10:45 Pulse Rate 93 H 07/10/24 10:45 Respiratory Rate 07/10/24 10:45 Blood Pressure 118/95 H 07/10/24 10:45 Pulse Oximetry 100 07/10/24 10:45 Oxygen Delivery Method Room Air 07/10/24 10:45 Medical Decision Making MDM Narrative Medical decision making narrative: Patient has an early with lower abdominal pain mainly in the left side. Her quantitative hCG today is 3740. She states yesterday it was over 3800. Pelvic ultrasound performed today reports left ovarian ectopic . There is fluid in the cul-de-sac. Dr. Mejia has been notified and will be coming down to see the patient. Lab Data Labs: Lab Results 07/10/24 Range/Units 11:17 WBC 9.1 (4.0-11.0) 10^3/uL RBC 4.72 (4.20-5.40) 10^6/uL Hgb 14.1 (12.0-16.0) g/dL Hct 42.8 (36.0-48.0) % MCV 90.7 (81.0-99.0) fL MCH 29.9 (26.7-34.0) pg MCHC 32.9 (29.9-35.2) g/dL RDW 12.0 (11.0-15.0) % Plt Count 329 (150-450) 10^3/uL MPV 8.9 L (9.5-13.5) fL Neut % (Auto) 75.2 H (43.0-75.0) % Lymph % (Auto) 19.5 L (20.5-60.0) % [place] % (Auto) 4.7 (1.7-12.0) % Eos % (Auto) 0.1 L (0.9-7.0) % Baso % (Auto) 0.3 (0.2-2.0) % Neut # (Auto) 6.8 H (1.4-6.5) 10^3/uL Lymph # (Auto) 1.8 (1.2-3.8) 10^3/uL [place] # (Auto) 0.4 (0.3-0.8) 10^3/uL Eos # (Auto) 0.0 (0.0-0.7) 10^3/uL Baso # (Auto) 0.0 (0.0-0.1) 10^3/uL Abs Immat Gran (auto) 0.02 (0.00-0.03) 10^3/uL Imm/Tot Granulo (auto) 0.2 (0.0-0.5) % HCG, Quant 3740 mIU/mL Discharge Plan Discharge Chief Complaint: Vaginal Bleeding Clinical Impression: Ectopic without intrauterine Prescriptions / Home Meds: No Action No Known Home Medications Print Language: Sammarinese Referrals: BAKARI ESCALERA [Primary Care Provider, Family Practice] - 1 week
--- NOTE | 2024-07-10 11:02 | US_ITS ---
The [address] [address] Patient Name: VINICIUS CHARLES MRN: [id number] date: 1990 Sex: F Assigned Patient Location: ER Current Patient Location: ER Accession/Order Number: [id number] Exam Date: 07/10/2024 11:59 Report Date: 07/10/2024 12:06 At the request of: ROB MOSER MD Procedure: US OB transvaginal EXAMINATION TYPE: US OB transvaginal Grayscale, color scale Doppler, vascular duplex analysis of the bilateral ovaries DATE OF EXAM ORDERED: 07/10/2024 11:41 AM HISTORY: HCG >3000, left sided pain, COMPARISON: 07/07/2024 TECHNIQUE: Realtime Transvaginal and Transabdominal imaging was performed. Transvaginal imaging was utilized to better evaluate the ovaries and the endometrial stripe. Grayscale, color scale Doppler, vascular duplex analysis of the bilateral ovaries was performed to assess blood flow. FINDINGS: The uterus is normal in size and in echogenicity. Endometrium: Normal thickness and appearance. The endometrium measures 9 mm in thickness. No evidence of intrauterine . Ovaries: Within the left ovary is a thick-walled cystic structure with a central structure that appears to represent a yolk sac. This has peripheral blood flow on color Doppler imaging and measures 1.4 x 1.6 x 1.3 cm in greatest dimension. This is suspicious for an ectopic within the left ovary. Right Ovary measurements: 2.7 x 2.5 x 1.5 cm Left Ovary measurements: 3.3 x 2.3 x 2.4 cm Free fluid is noted in the cul-de-sac. US/US OB transvaginal IMPRESSION: Within the left ovary is a thick-walled cystic structure with a central structure that appears to represent a yolk sac. This has peripheral blood flow on color Doppler imaging and measures 1.4 x 1.6 x 1.3 cm in greatest dimension. This is suspicious for an ectopic within the left ovary. Impression dictated by: Ricco Gilbert M.D. 07/10/2024 12:06 PM Dictation Location: [place] [address] Electronically authenticated by: [id number] Y Date: 07/10/2024 12:06
[2024-07-10 11:33] LABS: Basophils Percent Auto 0.3 % (0.2-2.0); Eosinophils Percent Auto 0.1 % (0.9-7.0); Hematocrit 42.8 % (36.0-48.0); Hemoglobin 14.1 g/dL (12.0-16.0); Immature Granulocytes Abs Auto 0.02 10^3/uL (0.00-0.03); Immature Granulocytes Pct Auto 0.2 % (0.0-0.5); Lymphocytes Absolute Auto 1.8 10^3/uL (1.2-3.8); Lymphocytes Percent Auto 19.5 % (20.5-60.0); Mean Corpuscular HGB Conc 32.9 g/dL (29.9-35.2); Mean Corpuscular Hemoglobin 29.9 pg (26.7-34.0); Mean Corpuscular Volume 90.7 fL (81.0-99.0); Mean Platelet Volume 8.9 fL (9.5-13.5); Monocytes Absolute Auto 0.4 10^3/uL (0.3-0.8); Monocytes Percent Auto 4.7 % (1.7-12.0); Neutrophils Absolute Auto 6.8 10^3/uL (1.4-6.5); Neutrophils Percent Auto 75.2 % (43.0-75.0); Platelet Count 329 10^3/uL (150-450); Red Blood Count 4.72 10^6/uL (4.20-5.40); White Blood Count 9.1 10^3/uL (4.0-11.0)
[2024-07-10 12:09] LABS: HCG Quantitative 3740 mIU/mL
[2024-07-10] MEDS: 0.9 % SODIUM CHLORIDE 1,000 ML 1000 ML IV (12:39)
[2024-07-10] MEDS: ONDANSETRON PF 4 MG/2 ML VIAL IV (14:19)
[2024-07-10] MEDS: FENTANYL CITRATE/PF 100 MCG/2 ML VIAL 50 MCG IV (14:21)
[2024-07-10] MEDS: LACTATED RINGER'S SOLUTION 1,000 ML 50 ML IV ×2 (14:25→16:16)
--- NOTE | 2024-07-10 14:50 | PC.NURSE ---
Surgery team down at this time, bedside report given.
--- NOTE | 2024-07-10 17:05 | PM.ONB ---
Brief Operative Note Date of procedure: 07/10/24 Pre-op diagnosis general: pelvic pain, lt adnexal mass Post-op diagnosis: same as pre-op Procedure: NAME OF PROCEDURE: [diagnostic laparoscopy ] lt tubal PROCEDURE: The patient was taken back to the Operating Room where she was placed in dorsal lithotomy position after given general anesthesia. The patient was prepped and draped in normal sterile fashion. A sponge stick was placed into the patient's vagina. Attention was turned to the patient's abdomen, where a small umbilical incision was made. The fascia was tented using Franchesca clamps and the fascia was entered sharply. Confirmation of intraabdominal placement of the 10 mm port was confirmed under direct visualization using a laparoscope. The patient's abdomen was then insufflated using CO2 gas with approximately 4 liters. A second port was placed left laterally, this was done under direct visualization with a 5 mm port. Survey of the patient's abdomen demonstrated normal liver and gallbladder. Survey of the patient's pelvic anatomy demonstrated normal appearing rt and lt ovary and rt tube as well as normal appearing uterus. lt tube demonstrated a lt tubal , lt tube was removed with ligasure and removed with the endocatch, no evidence of any pelvic disease was seen, normal appearing pelvic cavity. All instruments were removed from the patient's abdomen. endometriosis in posterior culdesac The patient's abdomen was deinsufflated of CO2 gas. The patient tolerated the procedure well. Sponge stick was removed from the patient's vagina. The patient's infraumbilical fascia was closed using #0 Vicryl on a GI needle. The patient's skin was closed laterally and infraumbilically using 4-0 Vicryl. The patient tolerated the procedure well. Sponge, lap and needle counts were correct x 2. The patient was taken to Recovery Room in stable condition. Surgeon: Ruddy Mejia Regulation Supervisor: Lauren Escobar Estimated blood loss (mL): 150 Pathology: other (lt tube) Condition: stable Disposition: PACU Urinary Catheter Management Urinary Catheter Management Straight: Cath placed during this visit: no
--- NOTE | 2024-07-10 18:37 | PC.NURSE ---
patient continues to complain of nausea. This underwriter mortgage loan offered Phenergan and iv haldol. Patient has refused thus far .
[2024-07-10] MEDS: PROMETHAZINE HCL 25 MG TABLET PO (18:49)
--- NOTE | 2024-07-10 19:21 | PC.NURSE ---
Patient ate, drank an d urinated as ordered. ready for discharge at this time.
--- NOTE | 2024-07-10 19:32 | PC.NURSE ---
3 dressings clean and dry upon admission to pacu phase 1. Patient's drsssings became soaked with bloody drainage from dy heaving and coughing. dressings changed prior to leaving to her home. Patient tolerated well.
== END 2024-07-10 19:19 | disposition home or self-care (01) ==
LOC: ER 14:13 → SURGOUT 14:56
PROVIDERS: Emergency Provider Emergency Medicine; PCP Family Medicine; Visit Provider Obstetrics & Gynecology
PROC: (CPT 840; principal; 2024-07-10 15:00)
DX: O00.102 Left tubal pregnancy without intrauterine pregnancy (principal); R10.2 Pelvic and perineal pain; N80.329 Endometriosis of the posterior cul-de-sac, unspecified depth
CPT/HCPCS: 59151; 36415; 76817; 84702; 85025; 88305; 96374; 96375; 99285; J1100; J1885; J2175; J2250; J2371; J2405; J2704; J3010; Q0169

== ENCOUNTER 2024-07-11 17:52 | Emergency (ER) | payer OTHER, SELFPAY ==
--- OUTSIDE RECORDS SUMMARY | 2024-07-06 09:15 | XMS_ITS | Encounter Summary ---
Author Organization [facility] Address [address] [place] [address] Care Team Providers Care Refuse Driver Name Role Phone John Pemberton MD Primary Care Provider [phone] Reason for Visit * Reason Comments Initial Visit Nurse Visit Encounter Details Date Type Department Care Team (Late st Contact Info) Description 07/06/2024 9:15 AM EDT Initial [facility] [address] [place] [address] Social History Tobacco Use Types Packs/Day Years Used Date Smoking Tobacco: Never Smokeless Tobacco: Never Alcohol Use Standard Drinks/Week Comments Not Currently 0 (1 standard drink = 0.6 oz pure alcohol) pt reports no caffiene intake Education Answer Date Recorded What is the highest level of school you have completed or the highest degree you have received? 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 Chief Complaint Chief Complaint Patient presents with Initial Visit Nurse Visit Jessica Valdez is a 34 y.o. at Unknown with a working estimated date of delivery of Not found. who presents for an initial visit. OB History Para Term AB Living 4 1 1 2 SAB IAB Ectopic Multiple Live Births # Outcome Date GA Lbr [place]/2nd Weight Sex Type Anes PTL Lv 4 Current 3 Term 06/19/21 6 lb 14 oz F CS-LTranv 2 AB 2020 1 AB 2017 Obstetric Comments Pap Smear 10/20/23 wnl Past Medical / Surgical History Past Medical History: Diagnosis Date Anxiety Endometriosis History of chicken pox In Childhood Migraines (CMS/HCC) Neurocardiogenic syncope OCD (obsessive compulsive disorder) (CMS/HCC) Serotonin syndrome Past Surgical History: Procedure Laterality Date SECTION, LOW TRANSVERSE 06/19/2021 INNER EAR SURGERY ear tubes as a baby OTHER SURGICAL HISTORY IVF 3 rounds PELVIC LAPAROSCOPY endometriosis XR HYSTEROSALPINGOGRAM 04/29/2017 Family History Family History Problem Relation Name Age of Onset Hypertension Mother No Known Problems Father No Known Problems Sister No Known Problems Daughter No Known Problems Son Diabetes Maternal Grandmother Heart disease Maternal Grandmother Cancer Maternal Grandmother Mental illness Paternal Grandmother Diabetes Paternal Grandfather Melanoma Neg Hx Social History reports that she has never smoked. She has never used smokeless tobacco. She reports that she does not currently use alcohol. She reports that she does not use drugs. Social History Tobacco Use Smoking Status Never Smokeless Tobacco Never MEDICATIONS: Current Outpatient Medications on File Prior to Visit Medication Sig Dispense Refill Homeopathic Products (William Cell Salts) sublingual tablet Place under the tongue MAGNESIUM PO Take by mouth Vit-Fe Fumarate-FA ( PO) Take by mouth Progesterone 200 MG suppository Insert 1 suppository into the vagina at bedtime 30 suppository 3 [DISCONTINUED] FLUoxetine (PROzac) 10 MG capsule 10 mg [DISCONTINUED] fluticasone (Flonase) 50 MCG/ACT nasal spray (Patient not taking: Reported on 04/13/2024) [DISCONTINUED] sertraline (Zoloft) 50 MG tablet 75 mg. (Patient not taking: Reported on 04/13/2024) No current facility-administered medications on file prior to visit. Allergies Allergies Allergen Reactions Cefaclor Other Reaction(s): rashes Cefdinir Swelling Other Reaction(s): rashes Cefprozil Other Reaction(s): rashes Dextromethorphan Hbr Other Reaction(s): rashes Doxycycline Hives Fluconazole Other Reaction(s): Other: See Comments Other reaction(s): Other: See Comments QT prolongation QT prolongation Guaifenesin Other Reaction(s): rashes Ibuprofen Hives Pseudoephedrine Other Reaction(s): rashes Pseudoephedrine-Ibuprofen Hives Sulfamethoxazole-Trimethoprim Unknown Tetracycline Other Reaction(s): hives Amoxicillin Rash Amoxicillin-Pot Clavulanate Rash Azithromycin Rash Other Reaction(s): rashes Erythromycin Rash Erythromycin Base Rash Penicillin G Rash Sulfa Antibiotics Rash Other Reaction(s): Hives Trimethoprim Rash Patient reports nausea and no vomiting. Discussed smaller meals, carson products, OTC Vitamin B6 50mg BID and Unisom 25mg BID Pt reports taking a daily vitamin Genetic and Chromosomal testing discussed. Pt given brochure to chk with ins and discuss with JACOBO at first appt. Last PAP: ASSESSMENT / PLAN Labs Ordered to [facility] Appointments scheduled for OB 08/09 and appt with JACOBO 08-14 Purvi Davis MA 07/06/2024 10:31 AM documented in this encounter Miscellaneous Notes * Addendum Note - Laurie Carrion MA - 07/06/2024 9:15 AM EDTAddended by: LAURIE CARRION on: 07/06/2024 11:45 AM Modules accepted: Orders documented in this encounter Plan of Treatment Upcoming Encounters Date Type Department Care Team (Late st Contact Info) Description 07/17/2024 1:30 PM EDT Office Visit [facility] [address] [place] [id number] Ruddy Meija, DO [address] [place] [address] 08/07/2024 12:30 PM EDT Ancillary Procedure [facility] [place] [address] [place] [phone] 08/09/2024 8:30 AM EDT Ancillary Procedure [facility] [address] [place] [phone] 08/14/2024 1:00 PM EDT Initial [facility] [address] [place] [phone] Riddhi Villar, DO [address] [place] [address] 10/31/2024 3:45 PM EDT Office Visit [facility] [address] [place] [address] Riddhi Villar, DO [address] [place] [address] 02/25/2025 3:20 PM EST Office Visit [facility] [address] [place] [phone] Neha Sanchez PA [address] [place] [address] Scheduled Orders Name Type Priority Associated Diagnoses Orde r Schedule Urine culture Microbiology Routine care, subsequent in first trimester Expected: 07/06/2024, Expires: 07/06/2025 Urinalysis with microscopic Lab Routine care, subsequent in first trimester Expected: 07/06/2024, Expires: 07/06/2025 CBC and differential Lab Routine care, subsequent in first trimester Expected: 07/06/2024, Expires: 07/06/2025 Rubella antibody, IgG Lab Routine care, subsequent in first trimester Expected: 07/06/2024, Expires: 07/06/2025 Hepatitis B surface antigen Lab Routine care, subsequent in first trimester Expected: 07/06/2024, Expires: 07/06/2025 Type and screen Lab Routine care, subsequent in first trimester Expected: 07/06/2024, Expires: 07/06/2025 Hepatitis C antibody Lab Routine care, subsequent in first trimester Expected: 07/06/2024, Expires: 07/06/2025 DRUG SCREEN 17 W/CONF, UR Lab Routine Encounter for drug screening Expected: 07/06/2024, Expires: 07/06/2025 HIV-2 antigen Lab Routine care, subsequent in first trimester Expected: 07/06/2024, Expires: 07/06/2025 Rpr (dx) w/refl titer and confirmatory testing Lab Routine care, subsequent in first trimester Expected: 07/06/2024, Expires: 07/06/2025 hCG, quantitative, Lab Routine care, subsequent in first trimester Expected: 07/06/2024 (Approximate), Expires: 07/06/2025 documented as of this encounter Goals Goal Patient Goal Type Associated Problems Recent Progress Patient-Stated? Author Reminders Care Plan OB Reminders No Purvi Davis MA documented as of this encounter Procedures Procedure Name Priority Date/Time Associated Diagnosis Comments POCT URINALYSIS DIPSTICK Routine 07/06/2024 11:44 AM EDT Urinary tract infection without hematuria, site unspecified documented in this encounter Results * POCT urinalysis dipstick manually resulted (07/06/2024 11:44 AM EDT) Color, UA Light Yellow Clarity, UA Clear Glucose, UA Negative Negative - 1999(110) ++++ mg/dL Bilirubin, UA Negative Negative - 4(70) +++ mg/dL Ketones, UA Negative Negative - 160(16) ++++ mg/dL Spec Grav, UA 1.005 1 - 1.03 Blood, UA Positive Negative - 50 Arturo/mcL pH, UA 7.5 5 - 9 Protein, UA Negative Negative - 1999(20) ++++ mg/dL Urobilinogen, UA 0.2 0.2 - 12 mg/dL Leukocytes, UA Moderate Negative - 500+++ Jaylon/mcL Nitrite, UA Negative Negative - Positive Urine 07/06/2024 11:4 4 AM EDT Riddhi Villar DO POINT OF CARE TEST ENTER/ED IT ORDERABLES Final Result documented in this encounter Visit Diagnoses Diagnosis care, subsequent in first trimester Encounter for drug screening Urinary tract infection without hematuria, site unspecified documented in this encounter Additional Health Concerns Active Problems Noted Date Diagnosed Date OB Reminders 07/06/2024 documented as of this encounter Care Teams Refuse Driver Relationship Specialty Start Date End Date John Pemberton MD [address] [place] [address] [place] [address] PCP - General Family Medicine 09/30/22 documented as of this encounter
--- OUTSIDE RECORDS SUMMARY | 2024-07-11 17:56 | XMS_ITS | Encounter Summary ---
Author Organization [facility] Address [address] [place], [place] [id number] Care Team Providers Care Supervisor Litharge Name Role Phone GriceldaJohn wood William CANELA Primary Care Provider [phone] Reshma Kim RN Unavailable Unavailable Source Comments In the event this information is protected by the Federal Confidentiality of Alcohol and Drug AbusePatient Records regulations: The Federal rules restrict any use of the information to criminally investigate or prosecute any alcohol or drug abuse patient.[facility] Encounter Details Date Type Department Care Team (Latest Contact Info) Description 08/16/2018 Get Medical Advice Reproductive Endocrinology Infertility [address] [place] [address] Kim Marcus [address] [place] [address] RE: Upcoming Appointment Question Social History Tobacco Use Types Packs/Day Years Used Date Smoking Tobacco: Never Smokeless Tobacco: Never Alcohol Use Standard Drinks/Week Comments Yes 0 (1 standard drink = 0.6 oz pur e alcohol) rare Comments No Sex and Gender Information Value Date Recorded Sex Assigned at Not on file Legal Sex Female 9:33 AM EST Gender Identity Not on file Sexual Orientation Not on file documented as of this encounter Plan of Treatment Not on file documented as of this encounter Visit Diagnoses Not on filedocumented in this encounter Care Teams Supervisor Litharge Relationship Specialty Start Date End Date John Pemberton DO [address] [place] [id number] PCP - General Family Medicine 02/25/16 Reshma Kim, RN Registered Nurse Reproductive Endocrinology 04/26/18 documented as of this encounter
--- OUTSIDE RECORDS SUMMARY | 2024-07-11 17:56 | XMS_ITS | Encounter Summary ---
Author Organization [facility] Address [address] [place] [address] Care Team Providers Care Filling And Stapling Machine Operator Name Role Phone John Pemberton MD Primary Care Provider [phone] Encounter Details Date Type Department Care Team (Late st Contact Info) Description 07/06/2024 Telephone [facility] [address] [facility] [address] [place] [phone] Riddhi Villar, DO [address] [facility] [address] [place] [address] Social History Tobacco Use Types Packs/Day Years [...] 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, CIRCUITS ENGINEER, [employer]) 09/29/2022 Comments Yes Sex and Gender Information Value Date Recorded Sex Assigned at Not on file Legal Sex Female 7:21 PM EDT Gender Identity Not on file Sexual Orientation Not on file Occupation Industry Job Start Date Job End Date Not on file Not on file Not on file Not on file documented as of this encounter Miscellaneous Notes * Telephone Encounter - Marcia Van RN - 07/10/2024 8:26 AM EDT See mychart messages. Closing encounter * Telephone Encounter - Purvi Davis MA - 07/06/2024 11:27 AM EDT Pt req HCG to be drawn. Will chk results Tuesday. documented in this encounter Plan of Treatment Upcoming Encounters Date Type Department Care Team (Late st Contact Info) Description 07/17/2024 1:30 PM EDT Office Visit [facility] [address] [place] [address] Ruddy Mejia, DO [address] [facility] [place] [address] 08/07/2024 12:30 PM EDT Ancillary Procedure [facility] [place] [address] [place] [address] 08/09/2024 8:30 AM EDT Ancillary Procedure [facility] [address] [place] [address] 08/14/2024 1:00 PM EDT Initial [facility] [address] [place] [address] Riddhi Villar, DO [address] [place] [address] 10/31/2024 3:45 PM EDT Office Visit [facility] [address] [place] [address] Riddhi Villar, DO [address] [place] [address] 02/25/2025 3:20 PM EST Office Visit [facility] D[facility] [address] [place] [id number] Neha Sanchez PA [address] [place] [address] documented as of this encounter Goals Goal Patient Goal Type Associated Problems Recent Progress Patient-Stated? Author Reminders Care Plan OB Reminders No Purvi Davis MA documented as of this encounter Visit Diagnoses Not on filedocumented in this encounter Additional Health Concerns Active Problems Noted Date Diagnosed Date OB Reminders 07/06/2024 documented as of this encounter Care Teams Filling And Stapling Machine Operator Relationship Specialty Start Date End Date John Pemberton MD [address] [place] [address] PCP - General Family Medicine 09/30/22 documented as of this encounter
--- OUTSIDE RECORDS SUMMARY | 2024-07-11 17:56 | XMS_ITS | Encounter Summary ---
Author Organization [facility] Address [address] [place], [place] [id number] Care Team Providers Care Sintering Plant Supervisor Name Role Phone GriceldaJohn wood William CANELA Primary Care Provider [phone] Reshma Kim RN Unavailable Unavailable Source Comments In the event this information is protected by the Federal Confidentiality of Alcohol and Drug AbusePatient Records regulations: The Federal rules restrict any use of the information to criminally investigate or prosecute any alcohol or drug abuse patient.[facility] Encounter Details Date Type Department Care Team (Latest Contact Info) Description 10/27/2018 Patient Msg Reproductive Endocrinology Infertility [address] [place] [address] Kim Marcus [address] [place] [address] RE: Appointment Cancellation Request Social History Tobacco Use Types Packs/Day Years [...] on filedocumented in this encounter Care Teams Sintering Plant Supervisor Relationship Specialty Start Date End Date John Pemberton DO [address] [place] [id number] PCP - General Family Medicine 02/25/16 Reshma Kim, RN Registered Nurse Reproductive Endocrinology 04/26/18 documented as of this encounter
--- OUTSIDE RECORDS SUMMARY | 2024-07-11 17:56 | XMS_ITS | Clinical Summary ---
Author Organization [facility] Address [address] [place], [place] [address] Care Team Providers Care Retail Parts Pro Name Role Phone Nilay John Thomas DO Primary Care Provider Reshma Kim RN Unavailable Unavailable Allergies Active Allergy Reactions Criticality Noted Date Comments Fluconazole Other: See Comments 05/21/2016 QT prolongation Doxycycline Hives 05/21/2016 Erythromycin Rash 05/21/2016 Ibuprofen Hives 05/18/2018 Cefdinir Swelling 05/21/2016 Penicillin Rash 05/21/2016 Sulfacetamide Rash 05/21/2016 Azithromycin Rash 05/21/2016 Medications fludrocortisone (FLORINEF) 0.1 mg tablet Take 0.1 mg by mouth twice daily. Active FLUoxetine (PROZAC) 20 mg capsule Take 20 mg by mouth once daily. Active Cholecalciferol , Vitamin D3, (VITAMIN D) 1,000 unit cap Take 5 capsules by mouth once daily. (CAN GET THE 5,000 IU AT [facility]) 11/17/2017 Active loratadine (CLARITIN) 10 mg tablet Take 1 tablet by mouth once daily as needed for Cold/Allergy Symptoms. 90 tablet 6 11/17/2017 Active methylPREDNISol one (MEDROL) 16 mg tablet Take 1 tablet by mouth once daily. Take as directed 4 tablet 04/26/2018 Active vit/iron fum/folic ac ( VITAMIN ORAL) Take by mouth. Active UBIQUINONE ORAL Take by mouth. Active clomiPHENE (SEROPHENE) 50 mg tabletIndicatio ns:Encounter for fertility planning Take 3 tabs by mouth cycle day 5-9. 15 tablet 1 09/13/2018 Active Active Problems No known active problems Family History Medical History Relation Comments Ischemic Heart Disease Maternal Grandfather Diabetes Maternal Grandmother Diabetes Paternal Grandfather Relation Status Comments Maternal Grandfather Maternal Grandmother Paternal Grandfather Social History Tobacco Use Types Packs/Day Years Used Date Smoking Tobacco: Never Smokeless Tobacco: Never Alcohol Use Standard Drinks/Week Comments Yes 0 (1 standard drink = 0.6 oz pur e alcohol) [facility] Area Deprivation Index Answer Date Akbar rded National Score (1-100), lower number is lower ri sk Not on file 01/31/2020 State Score (1-10), lower number is lower risk N ot on file 01/31/2020 Data from: https://www.neighborhoodatlas.medicine.[facility].edu/. Last address used for calculation Not on file 01/31/2020 Comments No Sex and Gender Information Value Date Recorded Sex Assigned at Not on file Legal Sex Female 9:33 AM EST Gender Identity Not on file Sexual Orientation Not on file Last Filed Vital Signs Vital Sign Reading Time Taken Comments Blood Pressure 110/70 07/07/2018 2:02 PM EDT Pulse 84 05/25/2018 11:41 AM EDT Temperature 36.3 C (97.3 F) 05/25/2018 10:46 AM EDT Respiratory Rate 16 05/25/2018 11:41 AM EDT Oxygen Saturation 100% 05/25/2018 11:41 AM EDT Inhaled Oxygen Concentration - - Weight 92.5 kg (204 lb) 07/07/2018 2:02 PM EDT Height 174 cm (5' 8.5 ) 07/07/2018 2:02 PM EDT Body Mass Index 30.57 07/07/2018 2:02 PM EDT Plan of Treatment Health Maintenance Due Date Last Done Comments Anxiety Screening 2009 Depression Screening 2009 HIV Screening 2009 Hepatitis C Screening 2009 DTaP,Tdap,Td Vaccine (1 - Tdap) 2010 Hepatitis B Vaccine (1 of 3 - 19+ 3-dose series) 03/19 Cervical Cancer Screening 2012 Covid-19 Vaccine ( - 2023- season) 2023 Influenza Vaccine (Season Ended) 2024 Insurance [employer] Care Teams Retail Parts Pro Relationship Specialty Start Date End Date John Pemberton DO [address] [place] [phone] PCP - General Family Medicine 02/25/16 Reshma Kim, RN Registered Nurse Reproductive Endocrinology 04/26/18
--- OUTSIDE RECORDS SUMMARY | 2024-07-11 17:56 | XMS_ITS | Encounter Summary ---
Author Organization [facility] Address [address] [place], [place] [id number] Care Team Providers Care Music Journalist Name Role Phone John Pemberton William CANELA Primary Care Provider [phone] Reshma Kim RN Unavailable Unavailable Source Comments In the event this information is protected by the Federal Confidentiality of Alcohol and Drug AbusePatient Records regulations: The Federal rules restrict any use of the information to criminally investigate or prosecute any alcohol or drug abuse patient.[facility] Encounter Details Date Type Department Care Team (Late st Contact Info) Description 07/11/2018 Patient Msg Reproductive Endocrinology Infertility [address] [place] [address] AmritKim [address] [place] [address] RE:amh result Social History Tobacco Use Types Packs/Day Years [...] on filedocumented in this encounter Care Teams Music Journalist Relationship Specialty Start Date End Date John Pemberton DO [address] [place] [address] PCP - General Family Medicine 02/25/16 Reshma Kim, RN Registered Nurse Reproductive Endocrinology 04/26/18 documented as of this encounter
--- OUTSIDE RECORDS SUMMARY | 2024-07-11 17:56 | XMS_ITS | Encounter Summary ---
Author Organization [facility] Address [address] [place], [place] [address] Care Team Providers Care Senior Oracle Soa Developer Name Role Phone John Pemberton DO Primary Care Provider Reshma Kim RN Unavailable Unavailable Source Comments In the event this information is protected by the Federal Confidentiality of Alcohol and Drug AbusePatient Records regulations: The Federal rules restrict any use of the information to criminally investigate or prosecute any alcohol or drug abuse patient.[facility] Encounter Details Date Type Department Care Team (Latest Contact Info) Description 05/23/2018 Patient Msg Reproductive Endocrinology Infertility [address] [place] [id number] Kim Dill LPN HCG and General Retrieval Instruction Social History Tobacco Use Types Packs/Day Years [...] on filedocumented in this encounter Care Teams Senior Oracle Soa Developer Relationship Specialty Start Date End Date John Pemberton DO [address] [place] [address] PCP - General Family Medicine 02/25/16 Reshma Kim, RN Registered Nurse Reproductive Endocrinology 04/26/18 documented as of this encounter
--- OUTSIDE RECORDS SUMMARY | 2024-07-11 17:56 | XMS_ITS | Encounter Summary ---
Author Organization [facility] Address [address] [place] [address] Phone Care Team Providers Care Wireless Operator Name Role Phone John Pemberton DO Primary Care Provider [phone] Encounter Details Date Type Department Care Team (Late st Contact Info) Description 06/12/2020 Orders Only [facility] [address] [place] [address] Conversion, Onbase Social History Tobacco Use Types Packs/Day Years Used Date Smoking Tobacco: Never Assessed Comments Unknown Sex and Gender Information Value Date Recorded Sex Assigned at Not on file Legal Sex Female 1:39 PM EST Gender Identity Not on file Sexual Orientation Not on file documented as of this encounter Plan of Treatment Upcoming Encounters Date Type Department Care Team (Late st Contact Info) Description 01/02/2025 3:50 PM EST Office Visit [facility] [address] [place] [address] Ariel Owens MD [address] [place] [address] Scheduled Orders Name Type Priority Associated Diagnoses Orde r Schedule OUTSIDE LAB SCAN Lab Ordered: 06/12/2020 documented as of this encounter Visit Diagnoses Not on filedocumented in this encounter Care Teams Wireless Operator Relationship Specialty Start Date End Date John Pemberton DO PCP - General 08/28/19 documented as of this encounter
--- OUTSIDE RECORDS SUMMARY | 2024-07-11 17:56 | XMS_ITS | Clinical Summary ---
Author Organization [facility] Address [address] [place] [address] Care Team Providers Care Workforce Specialist Name Role Phone John Pemberton MD Primary Care Provider [phone] Allergies Active Allergy Reactions Criticality Noted Date Comments Amoxicillin Rash Low 09/30/2022 Amoxicillin-Pot Clavulanate Rash Low 10/01/19 23 Azithromycin Rash Low 05/21/2016 Other Reaction(s): rashes Cefaclor 09/30/2022 Other Reaction(s): rashes Cefdinir Swelling 05/21/2016 Other Reaction(s): rashes Cefprozil 09/30/2022 Other Reaction(s): rashes Dextromethorphan Hbr 09/30/2022 Other Reaction(s): rashes Doxycycline Hives 05/21/2016 Erythromycin Rash Low 05/21/2016 Erythromycin Base Rash Low 11/23/2023 Fluconazole 05/21/2016 Other Reaction(s): Other: See Comments Other reaction(s): Other: See Comments QT prolongation QT prolongation Guaifenesin 09/30/2022 Other Reaction(s): rashes Ibuprofen Hives 05/18/2018 Penicillin G Rash Low 05/21/2016 Pseudoephedrine 09/30/2022 Other Reaction(s): rashes Pseudoephedrine-Ibuprofen Hives 12/12/2022 Sulfa Antibiotics Rash Low 05/21/2016 Other Reaction(s): Hives Sulfamethoxazole-Trimethopri m Unknown 12/12/2022 Tetracycline 09/30/2022 Other Reaction(s): hives Trimethoprim Rash Low 11/23/2023 Medications Progesterone 200 MG suppositoryIndi cations:History of miscarriage, currently , first trimester Insert 1 suppository into the vagina at bedtime 30 suppository 3 06/30/19 25 Active Vit-Fe Fumarate-FA ( PO) Take by mouth Ac tive MAGNESIUM PO Take by mouth Act miryam Homeopathic Products (William Cell Salts) sublingual tablet Place under the tongue Active nitrofurantoin, macrocrystal-mo nohydrate, (Macrobid) 100 MG capsuleIndicati ons:Urinary tract infection without hematuria, site unspecified Take 1 capsule (100 mg) by mouth in the morning and 1 capsule (100 mg) before bedtime. Do all this for 7 days. 14 capsule 07/07/19 25 025 Active fluticasone (Flonase) 50 MCG/ACT nasal spray 09/30/19 025 Discontin ued(Thera py completed ) sertraline (Zoloft) 50 MG tablet 75 mg. 07/16/19 025 Discontin ued(Thera py completed ) FLUoxetine (PROzac) 10 MG capsule 10 mg 04/05/19 025 Discontin ued(Thera py completed ) Active Problems Problem Noted Date Diagnosed Date Abdominal pain 02/02/2024 Acute sinusitis 02/02/2024 Adjustment disorder 02/02/2024 Amenorrhea 02/02/2024 Anovulation 02/02/2024 Cervical lymphadenopathy 02/02/2024 delivery delivered 02/02/2024 Cough 02/02/2024 Encounter for supervision of other normal , unspecified trimester 02/02/2024 First trimester bleeding 02/02/2024 Iron deficiency anemia 02/02/2024 Irregular menses 02/02/2024 Nausea & vomiting 02/02/2024 Pain in female genitalia on intercourse 02/02/20 24 PMDD (premenstrual dysphoric disorder) S/P 02/02/2024 Weight gain 02/02/2024 BMI 32.0-32.9,adult 12/30/2023 Never smoked tobacco 12/30/2023 Balance disorder 12/15/2022 Anxiety and depression 12/12/2022 Dysmenorrhea 12/12/2022 Hypotension 12/12/2022 Neurocardiogenic pre-syncope 12/12/2022 Pelvic floor dysfunction 12/12/2022 Pelvic floor tension 12/12/2022 Cervicalgia 12/09/2022 Migraine 12/09/2022 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 Serotonin syndrome Comments Yes Encounters Date Type Department Care Team Description 07/09/2024 Abstract [facility] [address] [place] [address] Riddhi Villar, DO 07/09/2024 External Result Encounter [facility] External Department Unsolicited Riddhi Villar, DO 07/06/2024 9:15 AM EDT Initial [facility] [address] [place] [address] 07/06/2024 Telephone [facility] [address] [place] [address] Riddhi Villar, DO 07/06/2024 Travel 07/02/2024 External Result Encounter [facility] External Department Unsolicited Riddhi Villar, DO 06/29/2024 External Result Encounter [facility] External Department Unsolicited Riddhi Villar, DO 06/19/2024 Results Follow-Up [facility] [address] [place] [address] Riddhi Villar, DO 06/14/2024 3:30 PM EDT Ancillary Procedure [facility] [address] [place] [address] Breast pain, left 06/14/2024 Travel 04/13/2024 3:20 PM EST Office Visit [facility] [address] [place] [address] Wendy Marcus, INDUSTRIAL MACHINE SYSTEM TECHNICIAN Other headache syndrome (Primary Dx); Cough, unspecified type 04/13/2024 Travel from Last 3 Months Family History Medical History Relation Name Comments No Known Problems Daughter No Known Problems Father Cancer Maternal Grandmother Diabetes Maternal Grandmother Heart disease Maternal Grandmother Hypertension Mother Diabetes Paternal Grandfather Mental illness Paternal Grandmother No Known Problems Sister No Known Problems Son Melanoma Neg Hx Relation Name Status Comments Daughter x1 Father Alive Maternal Grandfather Maternal Grandmother Mother Alive Paternal Grandfather Alive Paternal Grandmother Alive Sister x1 Son Cornelius and he is adopted Social History Tobacco Use Types Packs/Day Years Used Date Smoking Tobacco: Never Smokeless Tobacco: Never Tobacco Cessation:Counseling Given: Not Answered Alcohol Use Standard Drinks/Week Comments Not Currently 0 (1 standard drink = 0.6 oz pure alcohol) pt reports no caffiene intake Education Answer Date Recorded What is the highest level of school you have completed or the highest degree you have received? 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 LOADING OPERATOR, [employer]) 09/29/2022 Comments Yes Sex and Gender Information Value Date Recorded Sex Assigned at Not on file Legal Sex Female 7:21 PM EDT Gender Identity Not on file Sexual Orientation Not on file Occupation Industry Job Start Date Job End Date Not on file Not on file Not on file Not on file Last Filed Vital Signs Vital Sign Reading Time Taken Comments Blood Pressure 142/78 04/13/2024 3:29 PM EST Pulse 104 04/13/2024 3:29 PM EST Temperature 36.4 C (97.5 F) 04/13/2024 3:29 PM EST Respiratory Rate - - Oxygen Saturation 100% 04/13/2024 3:29 PM EST Inhaled Oxygen Concentration - - Weight 102 kg (224 lb 12.8 oz) 02/02/2024 3:38 P M EST Height 171.5 cm (5' 7.5 ) 10/20/2023 3:37 PM EDT Body Mass Index 34.69 10/20/2023 3:37 PM EDT Plan of Treatment Upcoming Encounters Date Type Department Care Team (Late st Contact Info) Description 07/17/2024 1:30 PM EDT Office Visit [facility] [address] [place] [address] Ruddy Mejia, [address] [place] [address] 08/07/2024 12:30 PM EDT Ancillary Procedure [facility] [place] [address] [place] [address] 08/09/2024 8:30 AM EDT Ancillary Procedure [facility] [address] [place] [address] 08/14/2024 1:00 PM EDT Initial [facility] [address] [place] [phone] Riddhi Villar, DO [address] [place] [address] 10/31/2024 3:45 PM EDT Office Visit [facility] [address] [place] [address] Riddhi Villar, DO [address] [place] [address] 02/25/2025 3:20 PM EST Office Visit [facility] [address] [place] [phone] Neha Sanchez PA [address] [place] [address] Goals Goal Patient Goal Type Associated Problems Recent Progress Patient-Stated? Author Reminders Care Plan OB Reminders No Purvi Davis MA Procedures Procedure Name Priority Date/Time Associated Diagnosis Comments HCG, TOTAL, QN Routine 07/09/2024 8:47 AM EDT POCT URINALYSIS DIPSTICK Routine 07/06/2024 11:44 AM EDT Urinary tract infection without hematuria, site unspecified HCG, TOTAL, QN Routine 07/02/2024 8:15 AM EDT HCG, TOTAL, QN Routine 06/29/2024 10:40 AM EDT BI US BREAST COMPLETE LEFT Routine 06/14/2024 3:48 PM EDT Breast pain, left INFLUENZA DNA PROBE Routine 04/13/2024 4 :06 PM EST Cough, unspecified type from Last 3 Months Results * hCG, quantitative, (07/09/2024 8:47 AM EDT) Only the most recent of3 resultswithin the time period is included. HCG,QUANTITATI VE 3,822.00 m[iU]/mL 07/09/2024 2:55 PM EDT [facility] Comment: Approximate Approximate hCG Gestational Age Range (mIU/ml) (weeks) 0.2-1 5-50 1-2 50-500 2-3 100-5,000 3-4 500-10,000 4-5 1,000-50,000 5-6 10,000-100,000 6-8 15,000-200,000 8-12 10,000-100,000 Other Topography unknown / Unknown 07/09/2024 8:47 AM EDT 07/09/2024 8:47 AM EDT Riddhi Villar DO LAB BLOOD ORDERABLES Final Result [facility] [address] [place] [address], [facility] [address] [place] [address] * POCT urinalysis dipstick manually resulted (07/06/2024 11:44 AM EDT) Color, UA Light Yellow Clarity, UA Clear Glucose, UA Negative Negative - 2000(110) ++++ mg/dL Bilirubin, UA Negative Negative - 4(70) +++ mg/dL Ketones, UA Negative Negative - 160(16) ++++ mg/dL Spec Grav, UA 1.005 1 - 1.03 Blood, UA Positive Negative - 50 Arturo/mcL pH, UA 7.5 5 - 9 Protein, UA Negative Negative - 2000(20) ++++ mg/dL Urobilinogen, UA 0.2 0.2 - 12 mg/dL Leukocytes, UA Moderate Negative - 500+++ Jaylon/mcL Nitrite, UA Negative Negative - Positive Urine 07/06/2024 11:4 4 AM EDT Riddhi Villar DO POINT OF CARE TEST ENTER/ED IT ORDERABLES Final Result * Left breast US complete (06/14/2024 3:48 PM EDT) Anatomical Region Laterality Modality Breast Left Ultrasound 06/14/2024 4:34 PM EDT Impressions 06/14/2024 4:41 PM EDT Impression: Left breast ultrasound study is grossly unremarkable. No convincing evidence of neoplasm. Previously noted likely tiny cyst at the 6 o'clock position no longer identified, assumed to have resolved during the interval. BI-RADS 2 ELECTRONICALLY SIGNED BY: Timo Villagran M.D. Narrative 06/14/2024 4:41 PM EDT Examination: BI US BREAST COMPLETE LEFT Reason [...] assumed to have resolved during the interval. Result [facility] Riddhi Villar DO IMG US PROCEDURES Final Res ult * INFLUENZA DNA PROBE (04/13/2024 4:06 PM EST) INFLUENZA A neg Negative INFLUENZA B neg Negative Nasal 04/13/2024 4:06 PM EST Claudio Banegas DO POINT OF CARE TEST ENTER/ED IT ORDERABLES Final Result from Last 3 Months Additional Health Concerns Active Problems Noted Date Diagnosed Date OB Reminders 07/06/2024 Insurance [employer] Care Teams Workforce Specialist Relationship Specialty Start Date End Date John Pemberton MD [address] [place] [address] [address] [facility] [place] [address] PCP - General Family Medicine 09/30/22
--- OUTSIDE RECORDS SUMMARY | 2024-07-11 17:56 | XMS_ITS | Encounter Summary ---
Author Organization [facility] Address [address] [place], [place] [phone] Care Team Providers Care Wet Process Miller Head Assistant Name Role Phone John Pemberton DO Primary Care Provider [phone] Reshma Kim RN Unavailable Unavailable Source Comments In the event this information is protected by the Federal Confidentiality of Alcohol and Drug AbusePatient Records regulations: The Federal rules restrict any use of the information to criminally investigate or prosecute any alcohol or drug abuse patient.[facility] Encounter Details Date Type Department Care Team (Late st Contact Info) Description 02/13/2018 Patient Msg Reproductive Endocrinology Infertility [address] [place], [place] [id number] Provider, [facility] IUI financial Social History Tobacco Use Types Packs/Day Years [...] on filedocumented in this encounter Care Teams Wet Process Miller Head Assistant Relationship Specialty Start Date End Date John Pemberton DO [address] [place] [address] PCP - General Family Medicine 02/25/16 Reshma Kim, RN Registered Nurse Reproductive Endocrinology 04/26/18 documented as of this encounter
--- OUTSIDE RECORDS SUMMARY | 2024-07-11 17:56 | XMS_ITS | Clinical Summary ---
Author Organization [facility] Address [id number] [address] [place] [address] Care Team Providers Care Marketing Segment Manager Name Role Phone John Pemberton DO Primary Care Provider [phone] Allergies Active Allergy Reactions Criticality Noted Date Comments Azithromycin Rash Low 05/21/2016 Cefdinir Swelling 05/21/2016 Doxycycline Hives 05/21/2016 Erythromycin Rash Low 05/21/2016 Fluconazole 05/21/2016 Other reaction(s): Other: See Comments QT prolongation Ibuprofen Hives 05/18/2018 Penicillin Rash Low 05/21/2016 Sulfacetamide Rash Low 05/21/2016 Medications FLUoxetine (PROzac) 20 mg capsule Take 20 mg by mouth daily. Active clomiPHENE (CLOMID) 50 mg tablet take 2 tablets by mouth once daily for 5 days 07/16/2019 Active fludrocortisone (FLORINEF) 0.1 mg tablet 08/07/2019 Active folic acid (FOLVITE) 800 MCG tablet Take 800 mcg by mouth daily. 07/20/2019 Active metFORMIN XR (GLUCOPHAGE-XR) 750 mg 24 hr tablet 08/08/2019 Active PLUS DHA 27 mg iron-1 mg -312 mg-250 mg combo pack TAKE 1 TAB & 1 CAPSULE BY MOUTH ONE TIME A DAY DIRECTED 06/15/2019 Active progesterone (PROMETRIUM) 200 mg capsule Take 400 mg by mouth nightly. 07/16/2019 Active cholecalciferol , vitamin D3, (VITAMIN D3 ORAL) Take by mouth. Active coenzyme Q10 (CO Q-10) 100 mg capsule Take 600 mg by mouth daily. Active UNABLE TO FIND DHA 50 MG Activ e ARGININE HCL, L-ARGININE, ORAL Take 200 mg by mouth. Active Active Problems No known active problems Family History Medical History Relation Name Comments Diabetes Maternal Grandmother Heart disease Maternal Grandmother Diabetes Paternal Grandfather Relation Name Status Comments Maternal Grandmother Paternal Grandfather Social History Tobacco Use Types Packs/Day Years Used Date Smoking Tobacco: Never Smokeless Tobacco: Never Alcohol Use Standard Drinks/Week Comments Yes 0 (1 standard drink = 0.6 oz pur e alcohol) [facility] Answer Date Recorded Frequency of Alcohol Consumption Not on file 08/10/2019 Average Number of Drinks Not on file 020 Q3: How often do you have si x or more drinks on one occasion? Weekly 08/10/2019 Childcare Answer Date Recorded Childcare Unknown 07/31/2018 Employment Answer Date Recorded Employment Unknown 07/31/2018 Purpose - Life Answer Date Recorded Purpose and direction in life Unknown Comments No Sex and Gender Information Value Date Recorded Sex Assigned at Female 08/09/2019 9:29 PM EDT Legal Sex Female 2:10 PM EDT Gender Identity Female 08/09/2019 9:29 PM EDT Sexual Orientation Straight 08/09/2019 9: 29 PM EDT Last Filed Vital Signs Vital Sign Reading Time Taken Comments Blood Pressure 110/68 08/10/2019 10:13 AM EDT Pulse - - Temperature - - Respiratory Rate - - Oxygen Saturation - - Inhaled Oxygen Concentration - - Weight 86.2 kg (190 lb) 08/24/2019 1:51 PM EDT Height 175.3 cm (5' 9 ) 08/10/2019 10:13 AM EDT Body Mass Index 28.06 08/10/2019 10:13 AM EDT Plan of Treatment Health Maintenance Due Date Last Done Comments Depression Screening 2003 Tobacco Screening 2003 Adult BMI Screening 2009 DTaP,Tdap and Td Vaccines (1 - Tdap) 2010 Pap Smear 2012 Influenza Vaccine 10/22/2024 Medical Devices Not on file Insurance [employer] Care Teams Marketing Segment Manager Relationship Specialty Start Date End Date John Pemberton DO [address] [place] [address] PCP - General Family Medicine 02/06/19
--- OUTSIDE RECORDS SUMMARY | 2024-07-11 17:56 | XMS_ITS | Encounter Summary ---
Author Organization [facility] Address [address] [place] [address] Care Team Providers Care Supervisor Telephone Information Name Role Phone John Pemberton MD Primary Care Provider [phone] Encounter Details Date Type Department Care Team (Late Contact Info) Description 07/02/2024 External Result Encounter [facility] External Department Unsolicited Riddhi Villar, DO [address] [facility] [address] [place] [address] Social History Tobacco Use Types Packs/Day Years Used Date Smoking Tobacco: Never Smokeless Tobacco: Never Alcohol Use Standard Drinks/Week Comments Yes 0 (1 standard drink = 0.6 oz pure alcohol) 1-2 drinks 2-4x a month in the past year, Caffeine intake: soda/pop sips on coke for nausea , coffee Education Answer Date Recorded What is the highest level of school you have completed or the highest degree you have received? 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, [employer]) 09/29/2022 Comments No Sex and Gender Information Value Date Recorded Sex Assigned at Not on file Legal Sex Female 7:21 PM EDT Gender Identity Not on file Sexual Orientation Not on file documented as of this encounter Plan of Treatment Upcoming Encounters Date Type Department Care Team (Late st Contact Info) Description 07/17/2024 1:30 PM EDT Office Visit [facility] [address] [place] [address] Ruddy Mejia, DO [address] [facility] [place] [address] 08/07/2024 12:30 PM EDT Ancillary Procedure [facility] [place] [address] [place] [address] 08/09/2024 8:30 AM EDT Ancillary Procedure [facility] [address] [place] [address] 08/14/2024 1:00 PM EDT Initial [facility] OB [address] [place] [address] Riddhi Villar, DO [address] [place] [address] 10/31/2024 3:45 PM EDT Office Visit [facility] [address] [place] [address] Riddhi Villar, DO [address] [place] [address] 02/25/2025 3:20 PM EST Office Visit [facility] DERM [address] [place] [address] Neha Sanchez PA [address] [place] [address] documented as of this encounter Procedures Procedure Name Priority Date/Time Associated Diagnosis Comments HCG, TOTAL, QN Routine 07/02/2024 8:15 AM EDT documented in this encounter Results * hCG, quantitative, (07/02/2024 8:15 AM EDT) HCG,QUANTITATI VE 169.46 m[iU]/mL 07/02/2024 2:22 PM EDT [facility] Comment: Approximate Approximate hCG Gestational Age Range (mIU/ml) (weeks) 0.2-1 5-50 1-2 50-500 2-3 100-5,000 3-4 500-10,000 4-5 1,000-50,000 5-6 10,000-100,000 6-8 15,000-200,000 8-12 10,000-100,000 Other Topography unknown / Unknown 07/02/2024 8:15 AM EDT 07/02/2024 8:15 AM EDT Riddhi Villar DO LAB BLOOD ORDERABLES Final Result Performing Organization Address City/State/[facility] Co de Phone Number [facility] [address] [place] [address], [facility] [address] [place] [address] documented in this encounter Visit Diagnoses Not on filedocumented in this encounter Care Teams Supervisor Telephone Information Relationship Specialty Start Date End Date John Pemberton MD [address] [place] [address] [place] [address] PCP - General Family Medicine 09/30/22 documented as of this encounter
--- OUTSIDE RECORDS SUMMARY | 2024-07-11 17:56 | XMS_ITS | Encounter Summary ---
Author Organization [facility] Address [address] [place], [place] [address] Care Team Providers Care Check Services Clerk Name Role Phone John Pemberton William CANELA Primary Care Provider [phone] Reshma Kim RN Unavailable Unavailable Source Comments In the event this information is protected by the Federal Confidentiality of Alcohol and Drug AbusePatient Records regulations: The Federal rules restrict any use of the information to criminally investigate or prosecute any alcohol or drug abuse patient.[facility] Encounter Details Date Type Department Care Team (Late st Contact Info) Description 09/25/2018 Patient Msg Reproductive Endocrinology Infertility [address] [place] [phone] Viviana Akbar, DIE MAKER APPRENTICE [address] [facility], [place], [address] [place] [phone] Social History Tobacco Use Types Packs/Day Years [...] on filedocumented in this encounter Care Teams Check Services Clerk Relationship Specialty Start Date End Date John Pemberton DO [address] [place] [address] PCP - General Family Medicine 02/25/16 Reshma Kim, JAYNA Registered Nurse Reproductive Endocrinology 04/26/18 documented as of this encounter
--- OUTSIDE RECORDS SUMMARY | 2024-07-11 17:56 | XMS_ITS | Encounter Summary ---
Author Organization [facility] Address [address] [place], [place] [id number] Care Team Providers Care Mixer Attendant Name Role Phone John Pemberton William CANELA Primary Care Provider [phone] Reshma Kim RN Unavailable Unavailable Source Comments In the event this information is protected by the Federal Confidentiality of Alcohol and Drug AbusePatient Records regulations: The Federal rules restrict any use of the information to criminally investigate or prosecute any alcohol or drug abuse patient.[facility] Encounter Details Date Type Department Care Team (Latest Contact Info) Description 08/17/2019 Get Medical Advice Reproductive Endocrinology Infertility [address] [place] [address] [place] [address] [place] [address] RE: Upcoming Appointment Question Social History Tobacco [...] on file Sexual Orientation Not on file COVID-19 Exposure Response Date Recorded In the last month, have you been in contact with someone who was confirmed or suspected to have Coronavirus / COVID-19? Unable to assess 08/09/2019 1:24 PM EDT documented as of this encounter Plan of Treatment Not on file documented as of this encounter Visit Diagnoses Not on filedocumented in this encounter Care Teams Mixer Attendant Relationship Specialty Start Date End Date John Pemberton DO [address] [place] [address] PCP - General Family Medicine 02/25/16 Reshma Kim, RN Registered Nurse Reproductive Endocrinology 04/26/18 documented as of this encounter
--- OUTSIDE RECORDS SUMMARY | 2024-07-11 17:56 | XMS_ITS | Encounter Summary ---
Author Organization [facility] Address [address] [place] [address] Phone Care Team Providers Care Pharmacy Resident Name Role Phone John Pemberton William CANELA Primary Care Provider [phone] Reason for Visit * Reason Comments Med Refill Encounter Details Date Type Department Care Team (Late st Contact Info) Description 02/12/2023 Refill [facility] [address] [place] [address] Holley Haque APRN-CNP [address] Department of Psychiatry-Adult [place] [phone] ADEN (generalized anxiety disorder) Social History Tobacco Use Types Packs/Day Years Used Date Smoking Tobacco: Never Assessed Comments Unknown Sex and Gender Information Value Date Recorded Sex Assigned at Not on file Legal Sex Female 1:39 PM EST Gender Identity Not on file Sexual Orientation Not on file documented as of this encounter Miscellaneous Notes * Telephone Encounter - MATT Salas - 02/15/2023 6:48 AM EST Approving, but needs appt for additional refills. documented in this encounter Plan of Treatment Upcoming Encounters Date Type Department Care Team (Late st Contact Info) Description 01/02/2025 3:50 PM EST Office Visit [facility] [address] [place] [address] Ariel Owens MD [address] [facility], [address] [place] [address] documented as of this encounter Visit Diagnoses Diagnosis ADEN (generalized anxiety disorder) Generalized anxiety disorder documented in this encounter Care Teams Pharmacy Resident Relationship Specialty Start Date End Date John Pemberton DO PCP - General 08/28/19 documented as of this encounter
--- OUTSIDE RECORDS SUMMARY | 2024-07-11 17:56 | XMS_ITS | Encounter Summary ---
Author Organization [facility] Address [address] [place] [address] Care Team Providers Care Chemistry Department Chair Name Role Phone John Pemberton MD Primary Care Provider [phone] Encounter Details Date Type Department Care Team (Late Contact Info) Description 06/29/2024 External Result Encounter [facility] External Department Unsolicited [facility]iddhi [facility]ar, DO [address] [facility] [address] [place] [address] Social History Tobacco Use Types Packs/Day Years [...] 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, METAL SPONGE MAKING MACHINE OPERATOR, [employer]) 09/29/2022 Comments No Sex and Gender [...] BCP [address] [place] [address] Ruddy Mejia, DO [address] [facility] [place] [address] 08/07/2024 12:30 PM EDT Ancillary Procedure [facility] [place] [address] [place] [address] 08/09/2024 8:30 AM EDT Ancillary Procedure [facility] [address] [place] [address] 08/14/2024 1:00 PM EDT Initial [facility] OB [address] [place] [address] Riddhi Villar, DO [address] [place] [address] 10/31/2024 3:45 PM EDT Office Visit [facility] [address] [place] [address] Riddhi Villar, DO [address] [place] [address] 02/25/2025 3:20 PM EST Office Visit [facility] DERM [address] [place] [address] Neha Sanchez PA [address] [place] [address] documented as of this encounter Procedures Procedure Name Priority Date/Time Associated Diagnosis Comments HCG, TOTAL, QN Routine 06/29/2024 10:40 AM EDT documented in this encounter Results * hCG, quantitative, (06/29/2024 10:40 AM EDT) HCG,QUANTITATIV E 28.39 m[iU]/mL 06/29/2024 2:25 PM EDT [facility] Comment: Approximate Approximate hCG Gestational Age Range (mIU/ml) (weeks) 0.2-1 5-50 1-2 50-500 2-3 100-5,000 3-4 500-10,000 4-5 1,000-50,000 5-6 10,000-100,000 6-8 15,000-200,000 8-12 10,000-100,000 Other Topography unknown / Unknown 06/29/2024 10:40 AM EDT 06/29/2024 10:40 AM EDT Riddhi Villar DO LAB BLOOD ORDERABLES Final Result Performing Organization Address City/State/[facility] [[email or web address]] Co de Phone Number [facility] [address] [place] [address], [facility] [address] [place] [address] documented in this encounter Visit Diagnoses Not on filedocumented in this encounter Care Teams Chemistry Department Chair Relationship Specialty Start Date End Date John Pemberton MD [address] [place] [phone] PCP - General Family Medicine 09/30/22 documented as of this encounter
--- OUTSIDE RECORDS SUMMARY | 2024-07-11 17:56 | XMS_ITS | Encounter Summary ---
Author Organization [facility] Address [address] [place] [address] Phone Care Team Providers Care Primary School Principal Name Role Phone GriceldaJohn wood William CANELA Primary Care Provider [phone] Reason for Visit * Reason Comments Med Refill Encounter Details Date Type Department Care Team (Late st Contact Info) Description 01/12/2023 Refill [facility] [address] [place] [address] Holley Haque APRN-CNP [address] Department of Psychiatry-Adult [place] [phone] ADEN (generalized anxiety disorder) Social History Tobacco Use Types Packs/Day Years Used Date Smoking Tobacco: Never Assessed Comments Unknown Sex and Gender Information Value Date Recorded Sex Assigned at Not on file Legal Sex Female 1:39 PM EST Gender Identity Not on file Sexual Orientation Not on file COVID-19 Exposure Response Date Recorded In the last 10 days, have yo u been in contact with someone who was confirmed or suspected to have Coronavirus/COVID-19? No / Unsure 12/14/2022 8:17 AM EDT documented as of this encounter Miscellaneous Notes * Telephone Encounter - MATT Salas - 01/12/2023 2:58 PM EST Approving, but needs appt for additional refills. documented in this encounter Plan of Treatment Upcoming Encounters Date Type Department Care Team (Late st Contact Info) Description 01/02/2025 3:50 PM EST Office Visit [facility] [address] [facility] [address] [place] [address] Ariel Owens MD 703 [facility] [address], [address] [place] [address] documented as of this encounter Visit Diagnoses Diagnosis ADEN (generalized anxiety disorder) Generalized anxiety disorder documented in this encounter Care Teams Primary School Principal Relationship Specialty Start Date End Date John Pemberton DO PCP - General 08/28/19 documented as of this encounter
--- OUTSIDE RECORDS SUMMARY | 2024-07-11 17:56 | XMS_ITS | Encounter Summary ---
Author Organization [facility] Address [address] [place] [address] Phone Care Team Providers Care Welder Production Line Arc Name Role Phone John Pemberton DO Primary Care Provider [phone] Encounter Details Date Type Department Care Team (Late st Contact Info) Description 10/28/2023 Scanned Document [facility] [address] [place] [phone] Scanning, Generic Provider Social History Tobacco Use Types Packs/Day Years [...] Description 01/02/2025 3:50 PM EST Office Visit [facility] [address] [facility] [address] [place] [address] Ariel Owens MD 703 [facility], [address] [place] [address] documented as of this encounter Visit Diagnoses Not on filedocumented in this encounter Care Teams Welder Production Line Arc Relationship Specialty Start Date End Date John Pemberton DO PCP - General 08/28/19 documented as of this encounter
--- OUTSIDE RECORDS SUMMARY | 2024-07-11 17:56 | XMS_ITS | Encounter Summary ---
Author Organization [facility] Address [address] [place], [place] [address] Care Team Providers Care Assistant Department Manager Name Role Phone John Pemberton William CANELA Primary Care Provider [phone] Reshma Kim RN Unavailable Unavailable Source Comments In the event this information is protected by the Federal Confidentiality of Alcohol and Drug AbusePatient Records regulations: The Federal rules restrict any use of the information to criminally investigate or prosecute any alcohol or drug abuse patient.[facility] Encounter Details Date Type Department Care Team (Latest Contact Info) Description 05/20/2018 Patient Msg Reproductive Endocrinology Infertility [address] [place] [address] Kim Marcus [address] [place] [address] comprehensive carrier screen result Social History Tobacco Use Types Packs/Day [...] on filedocumented in this encounter Care Teams Assistant Department Manager Relationship Specialty Start Date End Date John Pemberton DO [address] [place] [address] PCP - General Family Medicine 02/25/16 Reshma Kim, RN Registered Nurse Reproductive Endocrinology 04/26/18 documented as of this encounter
--- OUTSIDE RECORDS SUMMARY | 2024-07-11 17:56 | XMS_ITS | Encounter Summary ---
Author Organization [facility] Address [address] [place] [address] Care Team Providers Care Strategies Analyst Name Role Phone John Pemberton MD Primary Care Provider [phone] Encounter Details Date Type Department Care Team (Latest Contact Info) Description 07/06/2024 Travel Social History Tobacco Use Types Packs/Day Years [...] 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, COMMUNICATIONS ASSOCIATE, [employer]) 09/29/2022 Comments Yes Sex and Gender [...] 07/17/2024 1:30 PM EDT Office Visit [facility] [address] [facility] [address] Ruddy Mejia, DO [address] [place] [address] 08/07/2024 12:30 PM EDT Ancillary Procedure [facility] [place] [address] [place] [address] 08/09/2024 8:30 AM EDT Ancillary Procedure [facility] OB [address] [place] [address] 08/14/2024 1:00 PM EDT Initial [facility] SWS OB [address] [place] [address] Riddhi Villar, DO [address] [place] [address] 10/31/2024 3:45 PM EDT Office Visit [facility] OB [address] [place] [address] Riddhi Villar, DO [address] [place] [address] 02/25/2025 3:20 PM EST Office Visit [facility] DERM [address] [place] [address] Neha Sanchez PA [address] [place] [address] documented as of this encounter Goals Goal Patient Goal Type Associated Problems Recent Progress Patient-Stated? Author Reminders Care Plan OB Reminders Purvi Garrison MA documented as of this encounter Visit Diagnoses Not on filedocumented in this encounter Additional Health Concerns Active Problems Noted Date Diagnosed Date OB Reminders 07/06/2024 documented as of this encounter Care Teams Strategies Analyst Relationship Specialty Start Date End Date John Pemberton MD [address] [place] [address] [place] [address] PCP - General Family Medicine 09/30/22 documented as of this encounter
--- OUTSIDE RECORDS SUMMARY | 2024-07-11 17:56 | XMS_ITS | Encounter Summary ---
Author Organization [facility] Address [address] [place], [place] [address] Care Team Providers Care Underground Mine Superintendent Name Role Phone John Pemberton DO Primary Care Provider [phone] Reshma Kim RN Unavailable Unavailable Source Comments In the event this information is protected by the Federal Confidentiality of Alcohol and Drug AbusePatient Records regulations: The Federal rules restrict any use of the information to criminally investigate or prosecute any alcohol or drug abuse patient.[facility] Encounter Details Date Type Department Care Team (Late st Contact Info) Description 03/29/2018 Patient Msg Reproductive Endocrinology Infertility [address] [place] [phone] Kim Dill LPN RE:IVF Information Social History Tobacco Use Types Packs/Day Years [...] on filedocumented in this encounter Care Teams Underground Mine Superintendent Relationship Specialty Start Date End Date John Pemberton DO [address] [place] [address] PCP - General Family Medicine 02/25/16 Reshma Kim, RN Registered Nurse Reproductive Endocrinology 04/26/18 documented as of this encounter
--- OUTSIDE RECORDS SUMMARY | 2024-07-11 17:56 | XMS_ITS | Clinical Summary ---
Author Organization [facility] Address [address] [place] [address] Phone Care Team Providers Care Photoengraving Proofer Apprentice Name Role Phone Griceldanina John [place] CANELA Primary Care Provider [phone] Allergies Active Allergy Reactions Criticality Noted Date Comments Amoxicillin Unknown 12/12/2022 Amoxicillin-Pot Clavulanate Hives 12/13/19 23 Azithromycin Hives 12/12/2022 Cefaclor Hives 12/12/2022 Cefdinir Hives 12/12/2022 Cefprozil Rash Low 09/30/2022 Other Reaction(s): rashes Dextromethorphan Hbr Rash Low 09/30/2022 Other Reaction(s): rashes Doxycycline Unknown 12/12/2022 Erythromycin Rash Low 05/21/2016 Fluconazole Other 05/21/2016 Other Reaction(s): Other: See Comments Other reaction(s): Other: See Comments QT prolongation QT prolongation Other reaction(s): Other: See Comments QT prolongation QT prolongation Guaifenesin Rash Low 09/30/2022 Other Reaction(s): rashes Ibuprofen Hives 05/18/2018 Penicillin Rash Low 05/21/2016 Penicillin G Rash Low 05/21/2016 Pseudoephedrine Rash Low 09/30/2022 Other Reaction(s): rashes Pseudoephedrine-Ibuprofen Hives 12/12/2022 Sulfa (Sulfonamide Antibiotics) Hives 12/12/2022 Sulfamethoxazole-Trimethopri m Unknown 12/12/2022 Tetracycline Hives 09/30/2022 Other Reaction(s): hives Medications buPROPion SR (Wellbutrin SR) 100 mg 12 hr tabletIndication s:Moderate episode of recurrent major depressive disorder take 1 tablet by mouth twice a day (DON'T CRUSH) 30 tablet 12/30/2022 Active sertraline (Zoloft) 25 mg tablet Take 1 tablet (25 mg) by mouth once daily at bedtime. Active multivitamin tablet Take 1 tablet by mouth once daily. Active Active Problems Problem Noted Date Diagnosed Date BMI 32.0-32.9,adult 12/30/2023 Never smoked tobacco 12/30/2023 Anxiety and depression 12/12/2022 Dysmenorrhea 12/12/2022 Endometriosis 12/12/2022 Female infertility 12/12/2022 Neurocardiogenic pre-syncope 12/12/2022 Pelvic floor dysfunction 12/12/2022 Pelvic floor tension 12/12/2022 Class 1 obesity with body ma ss index (BMI) of 30.0 to 30.9 in adult 12/12/2022 Hypotension 12/12/2022 Cervicalgia 12/09/2022 Migraine 12/09/2022 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 Encounters Date Type Department Care Team Description 05/09/2024 2:16 PM EDT - 05/09/2024 11:59 PM EDT Hospital Encounter [place] [id number] [place] [address] Chest pain, unspecified type Discharge Disposition: Home 05/09/2024 Travel 05/08/2024 Travel 04/17/[address] [phone] Lucita Zaman RN from Last 3 Months Immunizations Immunization Administration Dates Next Due Tdap vaccine, age 7 year and older (BOOSTRIX, AD ACEL) 05/19/2021 Family History Medical History Relation Name Comments Diabetes Other 1 Colon cancer Other 2 Transient ischemic attack Other 2 cabg Other 2 Relation Name Status Comments Other 1 Grandparent Other 2 Grandmother Social History Tobacco Use Types Packs/Day Years Used Date Smoking Tobacco: Never Smokeless Tobacco: Never Alcohol Use Standard Drinks/Week Comments Never 0 (1 standard drink = 0.6 oz pur e alcohol) Comments Unknown Sex and Gender Information Value Date Recorded Sex Assigned at Not on file Legal Sex Female 1:39 PM EST Gender Identity Not on file Sexual Orientation Not on file Last Filed Vital Signs Vital Sign Reading Time Taken Comments Blood Pressure 128/78 05/09/2024 2:31 PM EDT Pulse 83 05/09/2024 2:31 PM EDT Temperature - - Respiratory Rate - - Oxygen Saturation - - Inhaled Oxygen Concentration - - Weight 99.9 kg (220 lb 3.2 oz) 12/30/2023 2:35 P M EST Height 175.3 cm (5' 9 ) 12/30/2023 2:35 PM EST Body Mass Index 32.52 12/30/2023 2:35 PM EST Plan of Treatment Upcoming Encounters Date Type Department Care Team (Late st Contact Info) Description 01/02/2025 3:50 PM EST Office Visit [facility] [address] [facility] [address] [place] [phone] Kosta Owens MD 703 [facility] [address] [place] [address] Health Maintenance Due Date Last Done Comments HIV Screening 1991 Lipid Panel 1991 Yearly Adult Physical 1991 MMR Vaccines (1 of 1 - Stand marcelina series) 1992 Varicella Vaccines (1 of 2 - 13+ 2-dose series) 2004 Hepatitis C Screening 2009 Hepatitis B Vaccines (1 of 3 - 19+ 3-dose series) 2010 Cervical Cancer Screening 2012 HPV/Cotest 2012 Pap Smear 2012 COVID-19 Vaccine ( - 2023-2 5 season) 2023 Influenza Vaccine (Season Ended) 2024 DTaP/Tdap/Td Vaccines (2 - T d or Tdap) 05/20/2031 05/19/2021 Zoster Vaccines (1 of 2) 2041 HIB Vaccines Aged Out No longer eligi ble based on patient's age to complete this topic HPV Vaccines Aged Out No longer eligi ble based on patient's age to complete this topic Hepatitis A Vaccines Aged Out No long er eligible based on patient's age to complete this topic IPV Vaccines Aged Out No longer eligi ble based on patient's age to complete this topic Meningococcal Vaccine Aged Out No arlene coleman eligible based on patient's age to complete this topic Pneumococcal Vaccine: Pediat rics and At-Risk Adult Patients Aged Out No longer coretta gible based on patient's age to complete this topic Rotavirus Vaccines Aged Out No longer eligible based on patient's age to complete this topic Procedures Procedure Name Priority Date/Time Associated Diagnosis Comments STRESS TEST ONLY, EXERCISE Routine 05/09/2024 2:59 PM EDT Chest pain, unspecified type from Last 3 Months Results * STRESS TEST ONLY, EXERCISE (05/09/2024 2:59 PM EDT) 05/10/2024 8:02 AM EDT Narrative SYNGO - 05/10/2024 4:52 PM EDT [address], [place] [address] Exercise Stress Test Patient Name: JESSICA CHARLES Ordering Provider: [id number] KOSTA OWENS Study Date: 05/10/2024 Reading Physician: [id number] Idalmis Flanagan MD MRN/PID: [id number] Supervising Physician: Tad Flanagan MD Fellow: Date of /Age: 1 1990 / 34 years Fellow: Gender: F Nurse: Jackie Jacobs RN Admission Status: Parking Line Painter: SHERICE Height: 175.26 cm Technologist: Weight: 99.79 kg Additional Staff: BSA: 2.15 m2 BMI: 32.49 kg/m2 Patient Location: Study Type: STRESS TEST ONLY Diagnosis/ICD: Chest pain, unspecified-R07.9 Indication: Chest Pain CPT Codes: Stress Test Interpretation-68836; Stress Test Supervision-[id number] Falls Risk: Low: Patient has low risk [...] normal sinus rhythm. Stress Stage Data: + +---+------+-------+ HR Sys BP Moran BP + +---+------+-------+ Baseline Resting 83 128 78 + +---+------+-------+ Baseline Standing 84 124 82 + +---+------+-------+ Stage I 142 144 82 + +---+------+-------+ Stage II 160 152 76 + +---+------+-------+ Stage III 176 168 82 + +---+------+-------+ Recovery ECG: The heart rate recovery was normal. + +---+------+-------+ HR Sys BP Moran BP + +---+------+-------+ Recovery I 171 170 84 + +---+------+-------+ Recovery II 162 170 76 + +---+------+-------+ Recovery III 126 136 76 + +---+------+-------+ Recovery IV 114 128 84 + +---+------+-------+ Recovery V 108 + +---+------+-------+ Summary: 1. Normal graded exercise stress test without diagnostic ST-T changes for ischemia. 2. No provoked chest pain or arrhythmia. 3. Appropriate hemodynamic response to exercise. 4. Good exercise tolerance. 5. Normal heart rate recovery phase. 6. Patient was able to exercise for 8 minutes achieving workload of 10.1 METS and 94% of maximum predicted heart rate. [id number] Idalmis Flanagan MD Electronically signed on 05/10/2024 at 4:52:25 PM Final Procedure Note Idalmis Flanagan MD - 05/10/[address], [place] [address] Exercise Stress Test Patient Name: JESSICA CHARLES Ordering Provider: [id number] OWENS Study Date: 05/10/2024 Reading Physician: [id number] Chi MRN/PID: [id number] Supervising Physician: Alex Chi Fellow: Date of /Age: 1 1990 / 34 years Fellow: Gender: F Nurse: Emanuel DORANTES Admission Status: Parking Line Painter: SHERICE Height: 175.26 cm Technologist: Weight: 99.79 kg Additional Staff: BSA: 2.15 m2 BMI: 32.49 kg/m2 Patient Location: Study Type: STRESS TEST ONLY Diagnosis/ICD: Chest pain, unspecified-R07.9 Indication: Chest Pain CPT Codes: Stress Test Interpretation-55405; Stress TestSupervision-[id number] Falls Risk: Low: Patient has low risk for sustaining a fall; environmentalsafety interventions in place. Study Details: Correct procedure and correct patient verified verbally. Patient Performance: The peak heart rate achieved was 176 bpm, which was94 % of the age predicted target heart rate of 187 bpm. The resting bloodpressure was 128/78 mmHg with a heart rate of 83 bpm. The standing bloodpressure was 124/82 mmHg with a heart rate of 84 bpm. The patient'sfunctional capacity was average. The patient developed dizziness andfatigue during the stress exam. The symptoms resolved with rest. The bloodpressure response was normal. The test was terminated due to: fatigue. Double Product (HR x BP): 296. Baseline ECG: Resting ECG showed normal sinus rhythm. Stress Stage Data: + +---+------+-------+ HR Sys BP Moran BP + +---+------+-------+ Baseline Resting 83 128 78 + +---+------+-------+ Baseline Standing 84 124 82 + +---+------+-------+ Stage I 142 144 82 + +---+------+-------+ Stage II 160 152 76 + +---+------+-------+ Stage III 176 168 82 + +---+------+-------+ Recovery ECG: The heart rate recovery was normal. + +---+------+-------+ HR Sys BP Moran BP + +---+------+-------+ Recovery I 171 170 84 + +---+------+-------+ Recovery II 162 170 76 + +---+------+-------+ Recovery III 126 136 76 + +---+------+-------+ Recovery IV 114 128 84 + +---+------+-------+ Recovery V 108 + +---+------+-------+ Summary: 1. Normal graded exercise stress test without diagnostic ST-T changes forischemia. 2. No provoked chest pain or arrhythmia. 3. Appropriate hemodynamic response to exercise. 4. Good exercise tolerance. 5. Normal heart rate recovery phase. 6. Patient was able to exercise for 8 minutes achieving workload of 10.1METS and 94% of maximum predicted heart rate. [id number] Idalmis Flanagan MD Electronically signed on 05/10/2024 at 4:52:25 PM Final us Kosta Owens MD CV STRESS PROCEDURES Final R esult SYN[facility] from Last [address] [place] [address] MEDICAL [facility] Care Teams Photoengraving Proofer Apprentice Relationship Specialty Start Date End Date John Pemberton DO PCP - General 08/28/19
--- OUTSIDE RECORDS SUMMARY | 2024-07-11 17:56 | XMS_ITS | Encounter Summary ---
Author Organization [facility] Address [address] [place], [place] [id number] Care Team Providers Care Certified Surgical Assistant Name Role Phone John Pemberton [place] CANELA Primary Care Provider [phone] Reshma Kim RN Unavailable Unavailable Source Comments In the event this information is protected by the Federal Confidentiality of Alcohol and Drug AbusePatient Records regulations: The Federal rules restrict any use of the information to criminally investigate or prosecute any alcohol or drug abuse patient.[facility] Encounter Details Date Type Department Care Team (Latest Contact Info) Description 08/08/2019 Get Medical Advice Reproductive Endocrinology Infertility [address] [place] [address] Kim Marcus [address] [place] [address] RE:question regarding possible laparoscopy Social History Tobacco Use Types Packs/Day Years [...] on filedocumented in this encounter Care Teams Certified Surgical Assistant Relationship Specialty Start Date End Date John Pemberton DO [address] [place] [address] PCP - General Family Medicine 02/25/16 Reshma Kim, JAYNA Registered Nurse Reproductive Endocrinology 04/26/18 documented as of this encounter
--- OUTSIDE RECORDS SUMMARY | 2024-07-11 17:56 | XMS_ITS | Encounter Summary ---
Author Organization [facility] Address [address] [place] [address] Phone Care Team Providers Care Crm Consultant Name Role Phone John Pemberton DO Primary Care Provider [phone] Reason for Visit * Reason Comments Med Refill Encounter Details Date Type Department Care Team (Late st Contact Info) Description 03/24/2023 Refill [facility] [address] [place] [address] Holley Haque, ELECTRICAL CONTROLS TECHNICIAN-DISTANCE EDUCATION DIRECTOR [address] Department [place] [address] ADEN (generalized anxiety disorder) Social History Tobacco [...] Description 01/02/2025 3:50 PM EST Office Visit [facility] [address] [facility] [address] [place] [address] Ariel Owens MD [address]03 [facility] [place] [address] documented as of this encounter Visit Diagnoses Diagnosis ADEN (generalized anxiety disorder) Generalized anxiety disorder documented in this encounter Care Teams Crm Consultant Relationship Specialty Start Date End Date John Pemberton DO PCP - General 08/28/19 documented as of this encounter
--- OUTSIDE RECORDS SUMMARY | 2024-07-11 17:56 | XMS_ITS | Encounter Summary ---
Author Organization [facility] Address [address] [place] [address] Phone Care Team Providers Care Graphite Pan Drier Tender Name Role Phone John Pemberton DO Primary Care Provider [phone] Encounter Details Date Type Department Care Team (Late st Contact Info) Description 07/23/2021 Orders Only [facility] [address] [place] [address] Conversion, Onbase Social History Tobacco Use Types [...] Description 01/02/2025 3:50 PM EST Office Visit [facility] [facility] [address] [place] [address] Ariel Owens MD 703 [facility], [address] [place] [address] Scheduled Orders Name Type Priority Associated Diagnoses Orde r Schedule OUTSIDE LAB SCAN Lab Ordered: 07/23/2021 documented as of this encounter Visit Diagnoses Not on filedocumented in this encounter Care Teams Graphite Pan Drier Tender Relationship Specialty Start Date End Date John Pemberton DO PCP - General 08/28/19 documented as of this encounter
--- OUTSIDE RECORDS SUMMARY | 2024-07-11 17:56 | XMS_ITS | Encounter Summary ---
Author Organization [facility] Address [address] [place] [address] Care Team Providers Care Vessel Master Name Role Phone Arjun Donna M PA Unavailable [phone] John Pemberton MD Primary Care Provider [phone] Encounter Details Date Type Department Care Team (Late st Contact Info) Description 09/29/2022 Abstract [facility] [address] [facility] [address] [place] [phone] Riddhi Villar, DO [address] [facility] [address] [place] [address] Social History Tobacco Use Types Packs/Day Years Used Date Smoking Tobacco: Never Tobacco Cessation:Counseling Given: Not Answered Alcohol Use Standard Drinks/Week Comments Yes 0 (1 standard drink = 0.6 oz pure alcohol) 1-2 drinks 2-4x a month in the past year, Caffeine intake: soda/pop sips on coke for nausea , coffee Education Answer Date Recorded What is the highest level of school you have completed or the highest degree you have received? 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, TELEPHONE INSTRUMENT SUPERVISOR, [employer]) 09/29/2022 Comments Unknown Sex and Gender Information Value Date Recorded Sex Assigned at Not on file Legal Sex Female 7:21 PM EDT Gender Identity Not on file Sexual Orientation Not on file documented as of this encounter Plan of Treatment Upcoming Encounters Date Type Department Care Team (Late st Contact Info) Description 07/17/2024 1:30 PM EDT Office Visit [facility] [address] [place] [phone] JackieRuddy, DO [address] [facility] [place] [address] 08/07/2024 12:30 PM EDT Ancillary Procedure [facility] [place] [address] [place] [address] 08/09/2024 8:30 AM EDT Ancillary Procedure [facility] [address] [place] [phone] 08/14/2024 1:00 PM EDT Initial [facility] [address] [place] [address] Riddhi Villar, DO [address] [place] [address] 10/31/2024 3:45 PM EDT Office Visit [facility] [address] [place] [address] Riddhi Villar, DO [address] [place] [address] 02/25/2025 3:20 PM EST Office Visit [facility] [address] [place] [address] Neha Sanchez PA [address] [place] [address] documented as of this encounter Visit Diagnoses Not on filedocumented in this encounter Care Teams Vessel Master Relationship Specialty Start Date End Date Donna Díaz PA [address] [facility] [address] [place] [address] PCP - Medical [place] [employer] 07/22/22 04/30/23 John Pemberton MD [address] [place] [address] PCP - General Family Medicine 09/30/22 documented as of this encounter
--- OUTSIDE RECORDS SUMMARY | 2024-07-11 17:56 | XMS_ITS | Encounter Summary ---
Author Organization [facility] Address [address] [place] [address] Phone Care Team Providers Care Rd Mechanical Engineer Name Role Phone John Pemberton DO Primary Care Provider [phone] Encounter Details Date Type Department Care Team (Late st Contact Info) Description 10/20/2020 Orders Only [facility] [address] [place] [address] Conversion, Onbase Social History Tobacco Use Types [...] Description 01/02/2025 3:50 PM EST Office Visit [facility] [facility] [address] [place] [address] Ariel Owens MD [address] [facility] [place] [address] Scheduled Orders Name Type Priority Associated Diagnoses Orde r Schedule OUTSIDE LAB SCAN Lab Ordered: 10/20/2020 documented as of this encounter Visit Diagnoses Not on filedocumented in this encounter Care Teams Rd Mechanical Engineer Relationship Specialty Start Date End Date John Pemberton DO PCP - General 08/28/19 documented as of this encounter
--- OUTSIDE RECORDS SUMMARY | 2024-07-11 17:56 | XMS_ITS | Encounter Summary ---
Author Organization [facility] Address [address] [place] [address] Care Team Providers Care Finger Cobbler Name Role Phone John Pemberton MD Primary Care Provider [phone] Encounter Details Date Type Department Care Team (Late Contact Info) Description 07/09/2024 External Result Encounter [facility] External Department Unsolicited Riddhi Villar, DO [address] [facility] [address] [place] [address] Social History Tobacco Use Types Packs/Day Years [...] 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, FIRST AID ATTENDANT, KIKO) 09/29/2022 Comments Yes Sex and Gender [...] Office Visit [facility] [address] [place] [address] Ruddy Mejia DO [address] [facility] [place] [address] 08/07/2024 12:30 PM EDT Ancillary Procedure [facility] [place] [address] [place] [address] 08/09/2024 8:30 AM EDT Ancillary Procedure [facility] [address] [place] [phone] 08/14/2024 1:00 PM EDT Initial [facility] [address] [place] [address] Riddhi Villar, DO [address] [place] [address] 10/31/2024 3:45 PM EDT Office Visit [facility] [address] [place] [address] Riddhi Villar, DO [address] [place] [address] 02/25/2025 3:20 PM EST Office Visit [facility] [address] [place] [address] Neha Sanchez PA [address] [place] [address] documented as of this encounter Goals Goal Patient Goal Type Associated Problems Recent Progress Patient-Stated? Author Reminders Care Plan OB Reminders Purvi Garrison MA documented as of this encounter Procedures Procedure Name Priority Date/Time Associated Diagnosis Comments HCG, TOTAL, QN Routine 07/09/2024 8:47 AM EDT documented in this encounter Results * hCG, quantitative, (07/09/2024 8:47 AM EDT) HCG,QUANTITATI VE 3,822.00 m[iU]/mL 07/09/2024 2:55 PM EDT [facility] Comment: Approximate Approximate hCG Gestational Age Range (mIU/ml) (weeks) 0.2-1 5-50 1-2 50-500 2-3 100-5,000 3-4 500-10,000 4-5 1,000-50,000 5-6 10,000-100,000 6-8 15,000-200,000 8-12 10,000-100,000 Other Topography unknown / Unknown 07/09/2024 8:47 AM EDT 07/09/2024 8:47 AM EDT Riddhi Villar DO LAB BLOOD ORDERABLES Final Result [facility] [address] [place] [address], [facility] [address] [place] [address] documented in this encounter Visit Diagnoses Not on filedocumented in this encounter Additional Health Concerns Active Problems Noted Date Diagnosed Date OB Reminders 07/06/2024 documented as of this encounter Care Teams Finger Cobbler Relationship Specialty Start Date End Date John Pemberton MD [address] [place] [address] [place] [address] [place] [address] PCP - General Family Medicine 09/30/22 documented as of this encounter
--- OUTSIDE RECORDS SUMMARY | 2024-07-11 17:56 | XMS_ITS | Encounter Summary ---
Author Organization [facility] Address [address] [place], [place] [id number] Care Team Providers Care Die Casting Supervisor Name Role Phone John Pemberton [place] Primary Care Provider [phone] Reshma Kim RN Unavailable Unavailable Source Comments In the event this information is protected by the Federal Confidentiality of Alcohol and Drug AbusePatient Records regulations: The Federal rules restrict any use of the information to criminally investigate or prosecute any alcohol or drug abuse patient.[facility] Encounter Details Date Type Department Care Team (Late st Contact Info) Description 09/13/2018 Patient Msg Reproductive Endocrinology Infertility [address] [place] [phone] Viviana Akbar, MANAGER INTERNAL [address] [facility] [place] [place] [phone] Social History Tobacco Use Types Packs/Day Years [...] on filedocumented in this encounter Care Teams Die Casting Supervisor Relationship Specialty Start Date End Date John Pemberton DO [address] [place] [address] PCP - General Family Medicine 02/25/16 Reshma Kim, JAYNA Registered Nurse Reproductive Endocrinology 04/26/18 documented as of this encounter
--- OUTSIDE RECORDS SUMMARY | 2024-07-11 17:56 | XMS_ITS | Encounter Summary ---
Author Organization [facility] Address [address] [place] [address] Phone Care Team Providers Care Security Manager Name Role Phone GriceldaJohn wood [place] Primary Care Provider [phone] Reason for Visit * Reason Comments Med Refill Encounter Details Date Type Department Care Team (Late st Contact Info) Description 12/30/2022 Refill [facility] [address] [place] [address] Holley Haque APRN-CNP [address] Department of Psychiatry-Adult [place] [phone] Moderate episode of recurrent major depressive disorder (Multi) Social History Tobacco Use Types Packs/Day Years [...] * Telephone Encounter - MATT [place] - 12/30/2022 1:50 PM EST Approving, but needs appt for additional refills. documented in this encounter Plan of Treatment Upcoming Encounters Date Type Department Care Team (Late st Contact Info) Description 01/02/2025 3:50 PM EST Office Visit [facility] [address] [facility] [address] [place] [address] Ariel Owens MD 703 [facility] [address] [place] [address] documented as of this encounter Visit Diagnoses Diagnosis Moderate episode of recurrent major depressive disorder documented in this encounter Care Teams Security Manager Relationship Specialty Start Date End Date John Pemberton DO PCP - General 08/28/19 documented as of this encounter
--- OUTSIDE RECORDS SUMMARY | 2024-07-11 17:56 | XMS_ITS | Encounter Summary ---
Author Organization [facility] Address [address] [place] [address] Care Team Providers Care Dairy Feed Mixing Operator Name Role Phone John Pemberton MD Primary Care Provider [phone] Encounter Details Date Type Department Care Team (Late Contact Info) Description 07/09/2024 Abstract [facility] [address] [facility] [address] [place] [address] Riddhi Villar, DO [address] [facility] [address] [place] [address] Social History Tobacco Use Types Packs/Day Years [...] 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, QUALITY ENG, KIKO) 09/29/2022 Comments Yes Sex and Gender [...] Encounters Date Type Department Care Team (Late Contact Info) Description 07/17/2024 1:30 PM EDT Office Visit [facility] [address] [place] [address] Ruddy Mejia, DO [address] [address] 08/07/2024 12:30 PM EDT Ancillary Procedure [facility] [place] [address] [place] [address] 08/09/2024 8:30 AM EDT Ancillary Procedure [facility] [address] [place] [phone] 08/14/2024 1:00 PM EDT Initial [facility] [address] [place] [phone] Riddhi Villar, DO [address] [place] [address] 10/31/2024 3:45 PM EDT Office Visit [facility] [address] [place] [address] Riddhi Villar, DO [address] [place] [address] 02/25/2025 3:20 PM EST Office Visit [facility] [address] [place] [address] Neha Sanchez PA [address] [place] [phone] documented as of this encounter Goals Goal Patient Goal Type Associated Problems Recent Progress Patient-Stated? Author Reminders Care Plan OB Reminders No Purvi Davis MA documented as of this encounter Visit Diagnoses Not on filedocumented in this encounter Additional Health Concerns Active Problems Noted Date Diagnosed Date OB Reminders 07/06/2024 documented as of this encounter Care Teams Dairy Feed Mixing Operator Relationship Specialty Start Date End Date John Pemberton MD [address] [place] [id number] PCP - General Family Medicine 09/30/22 documented as of this encounter
--- OUTSIDE RECORDS SUMMARY | 2024-07-11 17:56 | XMS_ITS | Encounter Summary ---
Author Organization [facility] Address [address] [place] [address] Phone Care Team Providers Care Slab Inspector Name Role Phone John Pemberton DO Primary Care Provider [phone] Encounter Details Date Type Department Care Team (Late st Contact Info) Description 06/18/2020 Orders Only [facility] [address] [place] [address] Conversion, Onbase Social History Tobacco Use Types [...] Description 01/02/2025 3:50 PM EST Office Visit [facility] [address] [facility] [address] [place] [address] Ariel Owens MD [address] [facility] [address] [place] [address] Scheduled Orders Name Type Priority Associated Diagnoses Orde r Schedule OUTSIDE LAB SCAN Lab Ordered: 06/18/2020 documented as of this encounter Visit Diagnoses Not on filedocumented in this encounter Care Teams Slab Inspector Relationship Specialty Start Date End Date John Pemberton DO PCP - General 08/28/19 documented as of this encounter
--- OUTSIDE RECORDS SUMMARY | 2024-07-11 17:56 | XMS_ITS | Encounter Summary ---
Author Organization [facility] Address [address] [place], [place] [phone] Care Team Providers Care Sexual Assault Counselor Name Role Phone John Pemberton DO Primary Care Provider [phone] Reshma Kim RN Unavailable Unavailable Source Comments In the event this information is protected by the Federal Confidentiality of Alcohol and Drug AbusePatient Records regulations: The Federal rules restrict any use of the information to criminally investigate or prosecute any alcohol or drug abuse patient.[facility] Encounter Details Date Type Department Care Team (Late st Contact Info) Description 01/16/2018 Patient Msg Reproductive Endocrinology Infertility [address] [place], [place] [address] Provider, [facility] fertility plan Social History Tobacco Use Types Packs/Day Years [...] on filedocumented in this encounter Care Teams Sexual Assault Counselor Relationship Specialty Start Date End Date John Pemberton DO [address] [place] [address] PCP - General Family Medicine 02/25/16 Reshma Kim, RN Registered Nurse Reproductive Endocrinology 04/26/18 documented as of this encounter
--- OUTSIDE RECORDS SUMMARY | 2024-07-11 17:56 | XMS_ITS | Encounter Summary ---
Author Organization [facility] Address [address] [place], [place] [phone] Care Team Providers Care Supervisor Electron Tube Processing Name Role Phone John Pemberton DO Primary Care Provider [phone] Reshma Kim RN Unavailable Unavailable Source Comments In the event this information is protected by the Federal Confidentiality of Alcohol and Drug AbusePatient Records regulations: The Federal rules restrict any use of the information to criminally investigate or prosecute any alcohol or drug abuse patient.[facility] Encounter Details Date Type Department Care Team (Latest Contact Info) Description 05/10/2018 Patient Msg Reproductive End[facility]in[facility] [address] [facility] [place] [phone] Provider, [facility] Medication Instructions Social History Tobacco Use Types Packs/Day Years [...] filedocumented in this encounter Care Teams Supervisor Electron Tube Processing Relationship Specialty Start Date End Date John Pemberton DO [address] [place] [phone] PCP - General Family Medicine 02/25/16 Reshma Kim, RN Registered Nurse Reproductive Endocrinology 04/26/18 documented as of this encounter
--- OUTSIDE RECORDS SUMMARY | 2024-07-11 17:56 | XMS_ITS | Encounter Summary ---
Author Organization [facility] Address [address] [place], [place] [phone] Care Team Providers Care Speech Pathologist Assistant Name Role Phone GriceldaJohn wood William CANELA Primary Care Provider [phone] Reshma Kim RN Unavailable Unavailable Source Comments In the event this information is protected by the Federal Confidentiality of Alcohol and Drug AbusePatient Records regulations: The Federal rules restrict any use of the information to criminally investigate or prosecute any alcohol or drug abuse patient.[facility] Encounter Details Date Type Department Care Team (Latest Contact Info) Description 06/13/2018 Get Medical Advice Reproductive Endocrinology Infertility [address] [place] [address] Kim Marcus [address] [place] [address] RE: Upcoming Appointment Question Social History Tobacco [...] on filedocumented in this encounter Care Teams Speech Pathologist Assistant Relationship Specialty Start Date End Date John Pemberton DO [address] [place] [address] PCP - General Family Medicine 02/25/16 Reshma Kim, RN Registered Nurse Reproductive Endocrinology 04/26/18 documented as of this encounter
--- OUTSIDE RECORDS SUMMARY | 2024-07-11 17:57 | XMS_ITS | CCD ---
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 Machine Operator Automatic Name Role Phone Kelsi Harry Unavailable Unavailable OBGYN IVF RDMS [id number] 1, MG OBGYN Unavailable Unavailable Shaila Conley Unavailable Unavailable Bakari Escalera Unavailable Unavailable Piero HAND SCREEN PRINTER-TRANSPORTATION PLANNING ENGINEERKelsi Unavailable Unavailab rohit Ocampo MD, Marie Unavailable Unavailable Claire BRODERICK, Shaila Unavailable Unavailable Bakari Escalera Unavailable Unavailable Bakari Escalera Unavailable Unavailable Unavailable Unavailable Bakari Escalera Unavailable Unavailable Unavailable Unavailable Unavailable DO Bakari Escalera Primary Care Provider [phone] DO Bakari Escalera Attending Provider Mayuri David Unavailable Bakari Escalera Unavailable Ariel Calderon Attending Unavailable Ariel Calderon Referring Unavailable Dr. Bakari Escalera Primary Care UnavailDR KACY Sáurez Primary Care Unavailable DIAB ., LUNA Attending Unavailable DIAB ., LUNA Consulting Unavailable DIAB ., LUNA Admitting Unavailable VIC PAULINO Attending Unavailable VIC PAULINO Admitting Unavailable DR BAKARI ESCALERA Primary Care Unavailable MICHELE WALKER Consulting UnavailVIC Lawson Consulting Unavailable DO Bakari Escalera Primary Care Provider [phone] DO Bakari Escalera Attending Provider [phone] Lawrence Su Unavailable Bakari Escalera DO Primary Care Provider MARVIN HAQUE Attending Unavailable BAKARI ESCALERA Primary Care Unavailable MARVIN HAQUE Attending Unavailable BAKARI ESCALERA Primary Care Unavailable DO Bakari Escalera Primary Care Provider DO Yang Garcia Attending Provider DO Bakari Escalera Primary Care Provider [phone] DO Bakari Escalera Attending Provider [phone] Bakari Escalera MD Primary Care Provider [phone] Bakari Escalera DO Primary Care Provider MARVIN HAQUE Attending Unavailable BAKARI ESCALERA Primary Care Unavailable MARVIN HAQUE Attending Unavailable BAKARI ESCALERA Primary Care Unavailable ARIEL CALDERON Attending Unavailable BAKARI ESCALERA Primary Care Unavailable Bakari Escalera DO Primary Care Provider ARIEL CALDERON Referring Unavailable BAKARI ESCALERA Primary Care Unavailable Bakari Escalera DO Primary Care Provider Bakari Escalera DO Attending Provider [phone] Bakari Escalera MD Primary Care Provider Riddhi Villar DO Attending Provider [phone] INGA JOSUE Attending Unavailable AUREA, RIDDHI E Referring Unavailable AUREA, RIDDHI E Attending Unavailable RINSREE, RIDDHI E Attending Unavailable AUREA, RIDDHI E Referring Unavailable INGA JOSUE Attending Unavailable ANJUM SANCHEZ Attending Unavailable Bakari Esaclera Primary Care Unavailable Bakari Escalera Attending Unavailable Bakari Escalera Admitting Unavailable Riddhi Villar Attending Unavailable Bakari Escalera Primary Care Unavailable Aurea, Riddhi Admitting Unavailable Bakari Escalera Primary Care Unavailable Rinsree, Riddhi Admitting Unavailable Rinkes, Riddhi Attending Unavailable Aurea, Riddhi Admitting Unavailable Aurea, Riddhi Attending Unavailable Bakari Escalera Primary Care Unavailable Bakari Escalera Primary Care Unavailable Bakari Escalera Attending Unavailable Bakari Escalera Admitting Unavailable Belinda Lam A Admitting Unavailable Abhinav Luna A Attending Unavailable Allergies Allergy Classification Reported Allergen(s) Allergy Type Date of Onset Reaction(s) Facility Amoxicillin / Clavulanate (9 sources) Amoxicillin / Clavulanate; Translations: [Augmentin] Drug Allergy ZV-ECUYS-Ylqtv n 310 IVF Work Phone: Doxycycline (9 sources) Doxycycline; Translations: [doxycycline] Drug Allergy OS-XQIBM-Xmfhw n 310 IVF Work Phone: Penicillins (antibiotic) (9 sources) Amoxicillin; Translations: [amoxicillin] Drug Allergy FF-QGZMT-Sghic n 310 IVF Work Phone: Sulfamethoxazole / Trimethoprim (9 sources) Sulfamethoxazole / Trimethoprim; Translations: [Bactrim] Drug Allergy BT-HCKMG-Znvtq n 310 IVF Work Phone: Sulfonamides (antibiotic) (9 sources) Sulfonamides (Antibiotic); Translations: [Sulfonamide Derivatives] Drug Allergy QD-RVLQQ-Wodni n 310 IVF Work Phone: (20 sources) Amoxicillin; Translations: [amoxicillin] Drug Allergy 022 rash, Unknown [facility] (20 sources) Amoxicillin / Clavulanate; Translations: [Augmentin] Drug Allergy Hives GS-NPFDO-Bhbig n 310 IVF Work Phone: (20 sources) Doxycycline; Translations: [doxycycline] Drug Allergy 016 Unknown, [facility] (20 sources) Sulfamethoxazole / Trimethoprim; Translations: [Bactrim] Drug Allergy QO-JUDFV-Oetjb n 310 IVF Work Phone: (20 sources) Sulfonamides (Antibiotic); Translations: [Sulfonamide Derivatives] Allergy to drug (finding) AP-SUCAU-Agaqw n 310 IVF Work Phone: (20 sources) Azithromycin; Translations: [Zithromax] Drug Allergy 017 rash, Hives [facility] [place] [facility] DO Work Phone: (10 sources) Cefaclor; Translations: [Ceclor CAPS] Drug Allergy Hives [facility] [place] [facility] DO Work Phone: (10 sources) cefdinir; Translations: [Omnicef CAPS] Drug Allergy Hives [facility] [place] [facility] DO Work Phone: (16 sources) Ibuprofen / Pseudoephedrine; Translations: [Advil Cold & Sinus Liqui-Gels CAPS] Drug Allergy 023 Hives [facility] [place] [facility] DO Work Phone: (10 sources) Sulfonamides (Antibiotic); Translations: [Sulfa Drugs] Allergy to drug (finding) Hives [facility] [place] [facility] DO Work Phone: (16 sources) Azithromycin; Translations: [Azithromycin] Drug Allergy [facility] (20 sources) cefdinir; Translations: [CEFDINIR] [facility] Ibuprofen; Translations: [IBUPROFEN] Drug Allergy 019 [facility] (13 sources) Penicillins; Translations: [Penicillins] Propensity to adverse reactions [facility] (12 sources) Sulfamethoxazole; Translations: [sulfamethoxazole] Drug Allergy [facility] (20 sources) Trimethoprim; Translations: [trimethoprim] Drug Allergy 019 [facility] (9 sources) cefdinir; Translations: [Omnicef] Drug Allergy rash [facility] Repository (8 sources) Cefuroxime Drug Allergy rash [employer] [facility] Other (20 sources) Erythromycin; Translations: [ERYTHROMYCIN] Drug Allergy rash [facility] Other (20 sources) Fluconazole; Translations: [FLUCONAZOLE] Drug Allergy Other [employer] [facility] Other (8 sources) Penicillin V Drug Allergy rash / Dr. Rodrigez (2017) pt can take PCN and not Cephalosporins [facility] [employer] Other (15 sources) Sulfacetamide Drug Allergy 024 [facility] (1 source) Azithromycin Drug Allergy [facility] Repository (1 source) Ibuprofen Drug Allergy [facility] Repository (1 source) Sulfonamides (Antibiotic) Drug allergy (disorder) [facility] Repository (20 sources) Amoxicillin / Clavulanate; Translations: [AMOXICILLIN-POT CLAVULANATE] Drug Allergy [facility] Work Phone: (20 sources) Cefaclor; Translations: [CEFACLOR] Drug Allergy 023 [facility] Work Phone: (20 sources) Sulfamethoxazole / Trimethoprim; Translations: [SULFAMETHOXAZOLE- TRIMETHOPRIM] Drug Allergy [facility] Work Phone: (20 sources) Sulfonamides (Antibiotic); Translations: [SULFA (SULFONAMIDE ANTIBIOTICS)] Drug Allergy [facility] Work Phone: (8 sources) cefprozil; Translations: [CEFPROZIL] Drug Allergy [facility] Work Phone: (20 sources) Dextromethorphan; Translations: [DEXTROMETHORPHAN HBR] Drug Allergy [facility] Work Phone: (8 sources) guaiFENesin; Translations: [GUAIFENESIN] Drug Allergy 023 [facility] Work Phone: (8 sources) Penicillin; Translations: [PENICILLIN] Drug Allergy [facility] Work Phone: (20 sources) Penicillin G; Translations: [PENICILLIN G] Drug Allergy [facility] Work Phone: (20 sources) Pseudoephedrine; Translations: [PSEUDOEPHEDRINE] Drug Allergy [facility] Work Phone: (20 sources) Tetracycline; Translations: [TETRACYCLINE] Drug Allergy [facility] Work Phone: (15 sources) PSEUDOEPHEDRINE-IB UPROFEN; Translations: [PSEUDOEPHEDRINE-I BUPROFEN] Propensity to adverse reactions to drug (disorder) [facility] Repository (8 sources) Cefuroxime; Translations: [cefuroxime] Drug Allergy [facility] (20 sources) erythromycin base; Translations: [erythromycin base] Allergy to substance [facility] (17 sources) Cefprozil Allergy to substance [facility] (17 sources) Fluconazole Allergy to substance [facility] (17 sources) guaiFENesin Drug Allergy [facility] (1 source) Fluconazole Drug Allergy [facility] Repository (1 source) Sulfacetamide Drug Allergy [facility] Repository Medications Current Medications Medication Drug Class(es) [...] mouth 3 times a day. 90 tablet 12/24/2022 05/04/2023 Discontinued () Start: 12-14-2022 End: [...] Homeopathic Products (William Cell Salts) sublingual tablet (2 sources) Homeopathic Products (William [employer] Salts) sublingual tablet Place under the tongue Active LORazepam 0.5 mg oral tablet (5 sources) Benzodiazepine Start: 04-18-19 take 1 tablet by mouth twice daily as needed for anxiety Lorazepam (Ativan) 0.5 mg tablet Active 0.5 MG PO Twice daily as needed for anxiety 14 April 18, 2024 1:00am Magnesium (2 sources) MAGNESIUM PO Fernando e by mouth Active multivitamin tablet (2 sources) take 1 tablet by mouth once daily multivitamin tablet Take 1 tablet by mouth once daily. Active nitrofurantoin, macrocrystals 25 mg / nitrofurantoin, monohydrate 75 mg oral capsule (2 sources) Nitrofuran Antibacterial Start: 07-07-19 End: 07-14-19 take [...] (8 sources) Active Vit-Fe Fumarate-FA ( PO) (2 sources) Vit-Fe Fumarate-FA ( PO) Take by mouth Active Progesterone 200 MG supposit ory (4 sources) Start: 06-29-2024 Progesterone 2 00 MG [...] mg by mouth. 0 Active BD Disp [place] 27G X 1/2 (1 source) Start: 01-18-2020 BD Disp Needle s 27G X 1/2 USE DIRECTED. Quantity: 1 Refills: 2 Kelsi Espitia Start : 18-Jan-2020 Active BD Disp [place] 27G X 1/2 (1 source) Start: 01-18-2020 BD Disp Needle s 27G X 1/2 USE DIRECTED. Quantity: 1 Refills: 2 Kelsi Espitia Start : 18-Jan-2020 Active cholecalciferol 0.025 mg [...] mouth. 12/30/2023 Discontinued (Therapy completed) chorionic gonadotropin 89506 unt/ml injectable solution (20 sources) Gonadotropin Start: 01-18-2020 inject 92412 [IU] by intramuscular injection once Chorionic Gonadotropin 51826 UNIT Intramuscular Solution Reconstituted USE DIRECTED. Quantity: 1 Refills: 2 Ordered: 21-Jan-2020 Kelsi Espitia Start : 18-Jan-2020 Active Will need later next week. thanks. Gris Start: 12-27-2019 Pregnyl 96891 UNIT Intramuscular Solution Reconstituted Inject 10,000 IU's SQ as directed to be used as HCG Trigger Quantity: 1 Refills: 1 Ordered: 30-Jul-2020 Raffy QUIROZSHAWANDAViviana Start : 30-Jul-2020 Active clomiPHENE citrate 50 [...] / neomycin 3.5 mg/ml / polymyxin b 08640 unt/ml otic suspension (8 sources) Aminoglycoside Antibacterial, Polymyxin-class Antibacterial, Corticosteroid Start: 01-27-2022 End: 12-30-2023 mfzbweil-ecpskfkng-YS (Cortisporin) 3.5-10,000-1 mg/mL-unit/mL-% otic suspension INSTILL 3 DROPS INTO RIGHT EAR THREE TIMES A DAY FOR 7 DAYS 01/27/2022 12/30/2023 Discontinued (Therapy completed) Start: 01-27-2022 Neomycin-Polym yxin-HC 3.5-57337-4 3 drops right ear Three times a [...] Lupron Quantity: 1 Refills: 1 Ordered: 30-Jul-2020 Viviana Becker Start : 30-Jul-2020 Active loratadine 10 mg [...] release oral tablet (20 sources) Blood Viscosity Budget Consultant Start: 12-28-2019 take 1 tablet by mouth [...] pain 30 7 June 22, 2021 12:00am June 27, 2023 3:01pm vitamin e 450 mg oral capsule (20 sources) Start: 12-28-2019 take 1 capsule by mouth once daily Vitamin E 1000 UNIT Oral Capsule TAKE 1 CAPSULE Daily Quantity: 30 Refills: 1 Ordered: 28-Dec-2019 Shaila Conley MD Start : 28-Dec-2019 Active Problems Active Problems Problem Classification Problem Date Documented Date Episodic/Chronic Adjustment disorders (12 sources) Adjustment disorder; Translations: [Adjustment disorder, unspecified] Onset: 02-02-2024 02-02-2024 Chronic Anxiety disorders (20 sources) Mixed anxiety and depressive disorder; Translations: [Anxiety state, unspecified] Onset: 12-12-2022 Chronic Conditions associated with dizziness or vertigo (20 sources) Dizziness and giddiness; Translations: [Vertigo of central origin] Onset: 12-09-2022 Episodic Delirium, dementia, and amnestic and other cognitive [...] [Dysmenorrhea] Onset: 12-12-2022 12-12-2022 Chronic Mood disorders (19 sources) Recurrent major depressive episodes, moderate ; [...] [Other hypoglycemia] Chronic Other female genital disorders (12 sources) Pain in female genitalia on intercourse; Translations: [Unspecified dyspareunia] Onset: 02-02-2024 02-02-2024 Chronic Other hereditary and degenerative nervous system conditions (4 sources) Restless legs; Translations: [Restless legs syndrome] 05-07-2024 Chronic Other hereditary and degenerative nervous system conditions (4 sources) Restless legs syndrome; Translations: [Restless legs syndrome (RLS)] 05-07-2024 Chronic Other hereditary and degenerative nervous system conditions (2 sources) Serotonin syndrome; Translations: [Serotonin syndrome] 07-06-2024 Chronic [...] Chronic Other nutritional; endocrine; and metabolic disorders (15 sources) Body mass index 30+ - obesity; [...] Translations: [Abnormal weight gain] 06-27-2023 Episodic Other screening for suspected conditions (not mental disorders or infectious disease) (20 sources) Possible ; Translations: [ examination or test, unconfirmed] Onset: 06-29-2024 Resolved: 07-30-2020 10-20-2023 Episodic Other skin disorders (2 sources) Lentigo [...] W/AND (SUSP) EXPOS COVID-19] Onset: 07-27-2021 Unclassified (2 sources) OB Reminders Onset: 07-06-2024 07-06-2024 Urinary tract infections (1 source) Urinary tract infectious disease; Translations: [Urinary tract infection, site not specified] 07-06-2024 Episodic Past or Other Problems Problem Classification Problem Date Documented Da te Episodic/Chronic Abdominal pain (20 sources) Abdominal pain; Translations: [Unspecified abdominal pain] Onset: 02-02-2024 02-15-2019 Episodic Deficiency and other anemia (20 sources) Iron deficiency anemia; Translations: [Iron deficiency anemia, unspecified] Onset: 02-02-2024 02-02-2024 Episodic Genitourinary symptoms and ill-defined conditions (2 sources) Dysuria; Translations: [Dysuria] 10-20-2023 Episodic Headache; including migraine (1 source) Headache; including migraine Hemorrhage during ; abruptio placenta; placenta previa (20 sources) Hemorrhage in early , unspecified; Translations: [First trimester bleeding] Onset: 02-02-2024 06-27-2017 Episodic Lymphadenitis (20 sources) Localized enlarged lymph nodes; Translations: [Cervical lymphadenopathy] Onset: 02-02-2024 Episodic Nausea and vomiting (20 sources) Nausea and vomiting; Translations: [Nausea with vomiting, unspecified] Onset: 07-27-2021 02-15-2019 Episodic Other aftercare (1 source) Other [place] [facility] ([facility] drug therapy; Translations: [OTH 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 DRUG THERAPY] Onset: 07-27-2021 Episodic Other [...] 02-02-2024 06-27-2023 Episodic Other nervous system disorders (17 sources) Impairment of balance; Translations: [Other abnormalities of gait and mobility] Onset: 12-15-2022 12-15-2022 Episodic Other nutritional; endocrine; and metabolic disorders (2 sources) Abnormal weight gain; Translations: [Abnormal weight gain] Onset: 10-28-2023 Episodic Other nutritional; endocrine; and metabolic disorders (18 sources) Weight increased; Translations: [Abnormal weight gain] Onset: 02-02-2024 02-02-2024 Episodic Other and delivery including normal (20 sources) test positive; Translations: [ examination or test, positive result] Onset: 02-02-2024 02-02-2024 Episodic Other upper respiratory infections (20 sources) Acute sinusitis, unspecified; Translations: [Acute sinusitis] Onset: 02-02-2024 Episodic Residual codes; unclassified (15 sources) Never smoked tobacco; Translations: [Other specified [...] Test Name Value Interpretation Reference Range Facility HCG,Quantitativeon HCG,Quantitative 3822.00 m[iU]/mL Normal [facility] Comment on above: Result Comment: Appr oximate Approximate hCG Gestational Age Range (mIU/ml) (weeks) 0.2-1 5-50 1-2 50-500 2-3 100-5,000 3-4 500-10,000 4-5 1,000-50,000 5-6 10,000-100,000 6-8 15,000-200,000 8-12 10,000-100,000 PERFORMED BY: [place] [address] PATHOLOGIST BONE DRIER OPERATOR FILIBERTO APPIAH M.D. Performed By: #### T SH3, FE and TIBC, CMP, PREETI, [id number], B12, CBC, FOL #### [address] hCG, quantitative, on 07-09-2024 HCG,QUANTITATIVE 3822 m[iU]/mL [facility] Comment on above: Approximate Approxim ate hCG Gestational Age Range (mIU/ml) (weeks) 0.2-1 5-50 1-2 50-500 2-3 100-5,000 3-4 500-10,000 4-5 1,000-50,000 5-6 10,000-100,000 6-8 15,000-200,000 8-12 10,000-100,000 [facility] Urine Cultureon 07-07-2024 Bacteria identified Cx Nom (U) 20,000 colonies/ml mixed bacterial skin contaminants 2 Days PERFORMED BY: [place] [id number] PATHOLOGIST BONE DRIER OPERATOR FILIBERTO APPIAH M.D. Normal [facility] Comment on above: Performed By: #### T SH3, FE and TIBC, CMP, PREETI, [id number], B12, CBC, FOL #### [facility] [address] [place] [address] [facility] Choriogonadotropin.beta subu nit [Units/volume] in Serum or PlasmaOrdered By: Riddhi Villar on 07-02-2024 HCG.beta subunit Qn Choriogonadotropin.b eta subunit [Units/volume] in Serum or Plasma [facility] Comment on above: Approximate Approxim ate hCG Gestational Age Range (mIU/ml) (weeks)0.2-1 5-50 1-2 50-500 2-3 100-5,000 3-4 500-10,000 4-5 1,000-50,000 5-6 10,000-100,000 6-8 15,000-200,000 8-12 10,000-100,000 HCG,Quantitativeon 5 HCG,Quantitative 169.46 m[iU]/mL Normal [facility] Comment on above: Result Comment: Appr oximate Approximate hCG Gestational Age Range (mIU/ml) (weeks) 0.2-1 5-50 1-2 50-500 2-3 100-5,000 3-4 500-10,000 4-5 1,000-50,000 5-6 10,000-100,000 6-8 15,000-200,000 8-12 10,000-100,000 PERFORMED BY: [address] [address] PATHOLOGIST BONE DRIER OPERATOR FILIBERTO APPIAH M.D. Performed By: #### H CGQNT #### [facility] [address] hCG, quantitative, on 07-02-2024 HCG,QUANTITATIVE 169.46 m[iU]/mL [facility] Comment on above: Approximate Approxim ate hCG Gestational Age Range (mIU/ml) (weeks) 0.2-1 5-50 1-2 50-500 2-3 100-5,000 3-4 500-10,000 4-5 1,000-50,000 5-6 10,000-100,000 6-8 15,000-200,000 8-12 10,000-100,000 [facility] Choriogonadotropin.beta subu nit [Units/volume] in Serum or PlasmaOrdered By: Riddhi Villar on 06-29-2024 HCG.beta subunit Qn Choriogonadotropin.b eta subunit [Units/volume] in Serum or Plasma [facility] Comment on above: Approximate Approxim ate hCG Gestational Age Range (mIU/ml) (weeks)0.2-1 5-50 1-2 50-500 2-3 100-5,000 3-4 500-10,000 4-5 1,000-50,000 5-6 10,000-100,000 6-8 15,000-200,000 8-12 10,000-100,000 HCG,Quantitativeon 5 HCG,Quantitative 28.39 m[iU]/mL Normal [facility] Comment on above: Result Comment: Appr oximate Approximate hCG Gestational Age Range (mIU/ml) (weeks) 0.2-1 5-50 1-2 50-500 2-3 100-5,000 3-4 500-10,000 4-5 1,000-50,000 5-6 10,000-100,000 6-8 15,000-200,000 8-12 10,000-100,000 PERFORMED BY: [facility] [address] [place] [address] PATHOLOGIST BONE DRIER OPERATOR FILIBERTO APPIAH M.D. Performed By: #### T SH3, FE and TIBC, CMP, PREETI, [id number], B12, CBC, FOL #### [facility] [address] [place] [id number] [facility] hCG, quantitative, on 06-29-2024 HCG,QUANTITATIVE 28.39 m[iU]/mL [facility] Comment on above: Approximate Approxim ate hCG Gestational Age Range (mIU/ml) (weeks) 0.2-1 5-50 1-2 50-500 2-3 100-5,000 3-4 500-10,000 4-5 1,000-50,000 5-6 10,000-100,000 6-8 15,000-200,000 8-12 10,000-100,000 [facility] BI US BREAST COMPLETE LEFTon 06-14-2024 BI [...] M.D. Normal Not Available MR head/brain wo/w conon MR head/brain wo/w [facility] [address] [place] [address] MRI Report Signed Patient: Jessica Valdez MR#: [id number] : 1990 Acct:[id number] Age/Sex: 34 / F ADM Date: 06/06/24 Loc: MR Room: Type: [facility] Attending Dr: Bakari Escalera DO Copies [...] Layton Samuels M.D.06/06/2024 2:34 PM Dictation Location: [place] [address] Transcribed By: [facility] 06/06/24 1434 Dictated By: Layton Samuels MD 06/06/24 1427 Signed By: 06/06/24 1434 Normal [facility] Magnetic resonance imaging r eportOrdered By: Layton Samuels on 06-06-2024 Study report [place] [address] MRI Report Signed Patient: Jessica Valdez MR#: [id number] : 1990 Acct:[id number] Age/Sex: 34 / F ADM Date: 5 Loc: MR Room: Type: [facility] Attending Dr: Bakari Escalera DO Copies [...] Layton Samuels M.D.06/06/2024 2:34 PM Dictation Location: [place] [address] Transcribed By: [facility] 06/06/24 1434 Dictated By: Layton Samuels MD 06/06/24 1427 Signed By: 06/06/[address] [place] [address] Work Phone: STRESS TEST ONLYon 5 STRESS TEST ONLY [address], [address] [place] [address] Exercise Stress Test Patient Name: JESSICA VALDEZ Ordering Provider: [id number] ARIEL CALDERON Study Date: 05/10/2024 Reading Physician: [id number] Ángel Flanagan MD MRN/PID: [id number] Supervising Physician: Tad Flanagan MD Fellow: Date of /Age: 1 1990 / 34 years Fellow: Gender: F Nurse: Jackie Jacobs RN Admission Status: Retail Department Supervisor: NA Height: 175.26 cm Technologist: Weight: 99.79 kg Additional Staff: BSA: 2.15 m2 BMI: 32.49 kg/m2 Patient Location: Study Type: STRESS TEST ONLY Diagnosis/ICD: Chest pain, unspecified-R07.9 Indication: Chest Pain CPT Codes: Stress Test Interpretation-77448; Stress Test Supervision-[id number] Falls Risk: Low: Patient has low risk [...] and 94% of maximum predicted heart rate. [id number] Idalmis Flanagan MD Electronically signed on 05/10/2024 at 4:52:25 PM Final [facility] No Panel Informationon 04-13 INFLUENZA A Negative Negative [facility] INFLUENZA B Negative Negative [facility] Interpretation and review of laboratory results Normal [facility] Basophils Auto (Bld) [#/Vol] on 04-07-2024 Basophils (Bld) [#/Vol] Automated basoph il count 0.0-0.1 [facility] Basophils/100 WBC Auto (Bld) on 04-07-2024 Basophils/100 WBC (Bld) Automated basophil % 0. 2-2.0 [facility] Eosinophils/100 WBC Auto (Bl d)on 04-07-2024 Eosinophils/100 WBC (Bld) Automated eosinophil % Low 0.9-7.0 [facility] Erythrocyte distribution wid th Auto (RBC) [Ratio]on 04-07-2024 Erythrocyte distribution width (RBC) [Ratio] Erythrocyte distribution width [Ratio] by Automated count 11.0-15.0 [facility] Estimated glomerular filtrat ion rate (GFR) non- Americanon 04-07-2024 GFR/1.73 sq M.predicted among non-blacks MDRD (S/P/Bld) [Vol rate/Area] Estimated glomerular filtration rate (GFR) non- >=60 mL/min/1.73 m 2 [facility] Hematocrit Auto (Bld) [Volum e fraction]on 04-07-2024 Hematocrit (Bld) [Volume fraction] Hematocrit [Volume Fraction] of Blood by Automated count 36.0-48.0 [facility] Hemoglobin [Mass/volume] in Bloodon 04-07-2024 Hemoglobin (Bld) [Mass/Vol] Hemoglobin [Mass/volume] in Blood 12.0-16.0 [facility] Laboratory - Chemistry and C hemistry - challengeon 04-07-2024 Calcium [Mass/Vol] 9.6 mg/dL 8.5-10.1 [facility] Chloride [Moles/Vol] 104 mmol/L 98-107 [facility] CO2 [Moles/Vol] 24.8 mmol/L 21.0-32.0 [facility] Creatinine [Mass/Vol] 0.87 mg/dL 0.55-1.02 [facility] GFR/1.73 sq M.predicted MDRD (S/P/Bld) [Vol rate/Area] mL/min/{1.73_m2} >=60 mL/min/1.73 m 2 [facility] Glucose [Mass/Vol] 99 mg/dL 74-106 [facility] Potassium [Moles/Vol] 3.9 mmol/L 3.5-5.1 [facility] Sodium [Moles/Vol] 140 mmol/L 136-145 [facility] Urea nitrogen [Mass/Vol] 10.0 mg/dL 7.0-18.0 [facility] Urea nitrogen/Creatinine [Mass ratio] 11.5 mg/mg [facility] Laboratory - Hematology and Cell countson 04-07-2024 Immature granulocytes/100 WBC (Bld) 0.2 % 0.0-0.5 [facility] Leukocytes [#/volume] correc nickolas for nucleated erythrocytes in Blood by Automated counon 04-07-2024 WBC corrected for nucl RBC Auto (Bld) [#/Vol] Leukocytes [#/volume] corrected for nucleated erythrocytes in Blood by Automated coun 4.0-11.0 [facility] Lymphocytes Auto (Bld) [#/Vo l]on 04-07-2024 Lymphocytes (Bld) [#/Vol] Lymphocytes [#/volume] in Blood by Automated count 1.2-3.8 [facility] Lymphocytes/100 WBC Auto (Bl d)on 04-07-2024 Lymphocytes/100 WBC (Bld) Lymphocytes/100 leukocytes in Blood by Automated count Low 20.5-60.0 [facility] MCH Auto (RBC) [Entitic mass ]on 04-07-2024 MCH (RBC) [Entitic mass] MCH [Entitic mass] by Automated count 26.7-34.0 [facility] MCHC Auto (RBC) [Mass/Vol]on 04-07-2024 MCHC (RBC) [Mass/Vol] MCHC [Mass/volume] by Automated count 29.9-35.2 [facility] MCV Auto (RBC) [Entitic vol] on 04-07-2024 MCV (RBC) [Entitic vol] MCV [Entitic vol ume] by Automated count 81.0-99.0 [facility] Monocytes Auto (Bld) [#/Vol] on 04-07-2024 Monocytes (Bld) [#/Vol] Automated blood monocyte count 0.3-0.8 [facility] Monocytes/100 WBC Auto (Bld) on 04-07-2024 Monocytes/100 WBC (Bld) Automated monocyte % 1. 7-12.0 [facility] Neutrophils Auto (Bld) [#/Vo l]on 04-07-2024 Neutrophils (Bld) [#/Vol] Neutrophils [#/volume] in Blood by Automated count High 1.4-6.5 [facility] Neutrophils/100 WBC Auto (Bl d)on 04-07-2024 Neutrophils/100 WBC (Bld) Automated neutrophil % 43.0-75.0 [facility] No Panel Informationon 04-07 Eosinophils # (Auto) 0.0 10 3/uL 0.0-0.7 [facility] Immature Granulocyte # (Auto) 0.02 10 3/uL 0.00-0.03 [facility] Troponin I High Sensitivity <4.0 pg/mL Low 4.0-51.3 [facility] Comment on above: CUT-OFF POINTS HAVE BEEN [...] in Blood by Automated count Low 9.5-13.5 [facility] Platelets Auto (Bld) [#/Vol] on 04-07-2024 Platelets (Bld) [#/Vol] Platelets [#/vol ume] in Blood by Automated count 150-450 [facility] RBC Auto (Bld) [#/Vol]on RBC (Bld) [#/Vol] Erythrocytes [#/volu me] in Blood by Automated count 4.20-5.40 [facility] Serum or plasma anion gap de terminationon 04-07-2024 Anion gap [Moles/Vol] Serum or plasma an ion gap determination [facility] COVID Cepheidon 04-05-2024 SARS-CoV-2 (COVID-19) RNA GABRIEL+probe Ql (Unsp spec) COVID Cepid [facility] Laboratory - Microbiology an d Antimicrobial susceptibilityon 04-05-2024 SARS-CoV-2 (COVID-19) RNA GABRIEL+probe Ql (Unsp spec) Negative [facility] No Panel Informationon 04-05 POC Influenza A (PCR) Negative [facility] POC Influenza B (PCR) Negative [facility] No Panel InformationOrdered By: Jeni Whittington on 04-05-2024 Quick Strep (POC) [facility] Quick Strep (POC) [facility] Laboratory - Microbiology an d Antimicrobial [...] PYOGENES (GROUP A STREP) (RESPIRATORY) Not detected [facility] Laboratory - Microbiology an d Antimicrobial susceptibilityon 02-02-2024 SARS-CoV-2 (COVID-19) RNA GABRIEL+probe Ql (Unsp spec) Negative [facility] No Panel Informationon 02-01 FLU A Negative [facility] FLU B Negative [facility] Interpretation and review of laboratory results Normal [facility] BI US BREAST COMPLETE LEFTon 11-30-2023 [...] ALT [Catalytic activity/Vol] 14 U/L Normal 7-52 [facility] Comment on above: Performed By: #### T SH3, FE and TIBC, CMP, PREETI, [id number], B12, CBC, FOL #### [facility] [address] [place] [address] [place] Albumin [Mass/volume] in Ser um or Plasma by Bromocresol green (BCG) dye binding methoOrdered By: Bakari Escalera on 10-28-2023 Albumin BCG dye [Mass/Vol] 4.3 g/dL 3.5-5.7 [facility] Alkaline phosphatase [Enzyma tic activity/volume] in Serum or PlasmaOrdered By: Bakari Escalera on 10-28-2023 ALP [Catalytic activity/Vol] 55 U/L Normal 34-104 [facility] Comment on above: Performed By: #### T SH3, FE and TIBC, CMP, PREETI, [id number], B12, CBC, FOL #### [facility] [address] [place] [address] [place] Aspartate aminotransferase [ Enzymatic activity/volume] in Serum or PlasmaOrdered By: Bakari Escalera on 10-28-2023 AST [Catalytic activity/Vol] 15 U/L Normal 13-39 [facility] Comment on above: Performed By: #### T SH3, FE and TIBC, CMP, PREETI, [id number], B12, CBC, FOL #### [address] Automated basophil %Ordered By: Bakari Escalera on 10-28-2023 Basophils/100 WBC (Bld) 0.7 % Normal . [facility] Comment on above: Performed By: #### T SH3, FE and TIBC, CMP, PREETI, [id number], B12, CBC, FOL #### [address] Automated basophil countOrde red By: Bakari Escalera on 10-28-2023 Basophils (Bld) [#/Vol] 0.0 10*3/uL Normal 0.0-0.2 [facility] Comment on above: Result Comment: PERF ORMED BY: [place] [address] PATHOLOGIST BONE DRIER OPERATOR NAM BOWMAN M.D. Performed By: #### T SH3, FE and TIBC, CMP, PREETI, [id number], B12, CBC, FOL #### [address] Automated blood monocyte cou ntOrdered By: Bakari Escalera on 10-28-2023 Monocytes (Bld) [#/Vol] 0.5 10*3/uL Normal 0.0-0.8 [facility] Comment on above: Performed By: #### T SH3, FE and TIBC, CMP, PREEIT, [id number], B12, CBC, FOL #### [address] Automated eosinophil %Ordere d By: Bakari Escalera on 10-28-2023 Eosinophils/100 WBC (Bld) 1.7 % Normal . [facility] Comment on above: Performed By: #### T SH3, FE and TIBC, CMP, PREETI, [id number], B12, CBC, FOL #### [address] Automated eosinophil countOr dered By: Bakari Escalera on 10-28-2023 Eosinophils (Bld) [#/Vol] 0.1 10*3/uL Normal 0.0-0.45 [facility] Comment on above: Performed By: #### T SH3, FE and TIBC, CMP, PREETI, [id number], B12, CBC, FOL #### [facility] [address] Automated monocyte %Ordered By: Bakari Escalera on 10-28-2023 Monocytes/100 WBC (Bld) 7.9 % Normal . [facility] Comment on above: Performed By: #### T SH3, FE and TIBC, CMP, PREETI, [id number], B12, CBC, FOL #### [facility] [address] Automated neutrophil %Ordere d By: Bakari Escalera on 10-28-2023 Neutrophils/100 WBC (Bld) 50.0 % Normal . [facility] Comment on above: Performed By: #### T SH3, FE and TIBC, CMP, PREETI, [id number], B12, CBC, FOL #### [address] Bilirubin.total [Mass/volume ] in Serum or PlasmaOrdered By: Bakari Escalera on 10-28-2023 Bilirubin [Mass/Vol] 0.4 mg/dL Normal 0.3-1.0 [facility] Comment on above: Performed By: #### T SH3, FE and TIBC, CMP, PREETI, [id number], B12, CBC, FOL #### [address] Calcium [Mass/volume] in Ser um or PlasmaOrdered By: Bakari Escalera on 10-28-2023 Calcium [Mass/Vol] 9.2 mg/dL Normal 8.6-10.3 [facility] Comment on above: Performed By: #### T SH3, FE and TIBC, CMP, PREETI, [id number], B12, CBC, FOL #### [address] Carbon dioxide, total [Moles /volume] in Serum or PlasmaOrdered By: Bakari Escalera on 10-28-2023 CO2 [Moles/Vol] 29.9 mmol/L Normal 21.0-31.0 [facility] Comment on above: Performed By: #### T SH3, FE and TIBC, CMP, PREETI, [id number], B12, CBC, FOL #### [address] Chloride [Moles/volume] in S brenda or PlasmaOrdered By: Bakari Escalera on 10-28-2023 Chloride [Moles/Vol] 105 mmol/L Normal 98-107 [facility] Comment on above: Performed By: #### T SH3, FE and TIBC, CMP, PREETI, [id number], B12, CBC, FOL #### [address] Complete Blood Count Auto Di ffon 10-28-2023 Mean Corpuscular HGB Conc 33.4 g/dL Normal 32.0-35.0 [facility] Comment on above: Performed By: #### T SH3, FE and TIBC, CMP, PREETI, [id number], B12, CBC, FOL #### [address] NRBC% 0.0 /100{WBC} Normal 0-0.5 [facility] Comment on above: Performed By: #### T SH3, FE and TIBC, CMP, PREETI, [id number], B12, CBC, FOL #### [address] Comprehensive Metabolic Pane arlene 10-28-2023 Albumin [Mass/Vol] 4.3 g/dL Normal 3.5-5.7 [facility] Comment on above: Performed By: #### T SH3, FE and TIBC, CMP, PREETI, [id number], B12, CBC, FOL #### [address] GFR/1.73 sq M.predicted MDRD (S/P/Bld) [Vol rate/Area] mL/min/{1.73_m2} Normal [facility] Comment on above: Performed By: #### T SH3, FE and TIBC, CMP, PREETI, [id number], B12, CBC, FOL #### [address] Creatinine [Mass/volume] in Serum or PlasmaOrdered By: Bakari Escalera on 10-28-2023 Creatinine [Mass/Vol] 0.82 mg/dL Normal 0.60-1.20 [facility] Comment on above: Performed By: #### T SH3, FE and TIBC, CMP, PREETI, [id number], B12, CBC, FOL #### [address] Erythrocyte distribution wid th [Ratio] by Automated countOrdered By: Bakari Escalera on 10-28-2023 Erythrocyte distribution width (RBC) [Ratio] 12.7 % Normal 11.9-15.3 [facility] Comment on above: Performed By: #### T SH3, FE and TIBC, CMP, PREETI, [id number], B12, CBC, FOL #### [address] Erythrocytes [#/volume] in B lood by Automated countOrdered By: Bakari Escalera on 10-28-2023 RBC (Bld) [#/Vol] 4.54 10*6/uL Normal 3.60-5.00 [facility] Comment on above: Performed By: #### T SH3, FE and TIBC, CMP, PREETI, [id number], B12, CBC, FOL #### [address] Ferritin [Mass/volume] in Se rum or PlasmaOrdered By: Bakari Escalera on 10-28-2023 Ferritin [Mass/Vol] 22.5 ng/mL Normal 11.0-306.8 [facility] Comment on above: Performed By: #### T SH3, FE and TIBC, CMP, PREETI, [id number], B12, CBC, FOL #### [address] Folateon 10-28-2023 Folate 23.3 ng/mL Normal >5.9 [facility] Comment on above: Result Comment: [place] te reference range: >5.9 ng/ml The WHO technical consultation on folate and vitamin b12 deficiencies has determined that folate concentrations less than 4 ng/ml are considered deficient. Performed By: #### T SH3, FE and TIBC, CMP, PREETI, [id number], B12, CBC, FOL #### [address] Folate [Mass/volume] in Seru m or PlasmaOrdered By: Bakari Escalera on 10-28-2023 Folate [Mass/Vol] 23.3 ng/mL >5.9 [facility] Comment on above: Folate reference ran ge: >5.9 ng/mlThe WHO technical consultation on folate and vitamin [id number] has determined that folate concentrations lessthan 4 ng/ml are considered deficient. Glucose [Mass/volume] in Ser um or PlasmaOrdered By: Bakari Escalera on 10-28-2023 Glucose [Mass/Vol] 97 mg/dL Normal 70-100 [facility] Comment on above: ADA recommended refe rence rangeRandom Glucose Reference Range is dependent on time and content of last meal. Glucose of more than 200 mg/dL in a nonstressed, ambulatory subject supports the diagnosis of Diabetes Mellitus. Result Comment: [place] Glucose Reference Range is dependent on time and content of last meal. Glucose of more than 200 mg/dL in a nonstressed, ambulatory subject supports the diagnosis of Diabetes Mellitus. ADA recommended reference range Performed By: #### T SH3, FE and TIBC, CMP, PREETI, [id number], B12, CBC, FOL #### [address] Hematocrit [Volume Fraction] of Blood by Automated countOrdered By: Bakari Escalera on 10-28-2023 Hematocrit (Bld) [Volume fraction] 40.5 % Normal 34.0-46.4 [facility] Comment on above: Performed By: #### T SH3, FE and TIBC, CMP, PREETI, [id number], B12, CBC, FOL #### [address] Hemoglobin [Mass/volume] in BloodOrdered By: Bakari Escalera on 10-28-2023 Hemoglobin (Bld) [Mass/Vol] 13.5 g/dL Normal 11.8-15.4 [facility] Comment on above: Performed By: #### T SH3, FE and TIBC, CMP, PREETI, [id number], B12, CBC, FOL #### [facility] [address] Iron [Mass/volume] in Serum or PlasmaOrdered By: Bakari Escalera on 10-28-2023 Iron [Mass/Vol] 57 ug/dL Normal 50-212 [facility] Comment on above: Performed By: #### T SH3, FE and TIBC, CMP, PREETI, [id number], B12, CBC, FOL #### [facility] [address] Iron and TIBC Profileon % Iron Saturation 17.9 % Low 20-50 [facility] Comment on above: Performed By: #### T SH3, FE and TIBC, CMP, PREETI, [id number], B12, CBC, FOL #### [facility] [address] Total Iron Binding Capacity 319 ug/dL Normal 255-450 [facility] Comment on above: Performed By: #### T SH3, FE and TIBC, CMP, PREETI, [id number], B12, CBC, FOL #### [facility] [address] Iron binding capacity [Mass/ volume] in Serum or PlasmaOrdered By: Bakari Escalera on 10-28-2023 Iron binding capacity [Mass/Vol] 319 ug/dL 255-450 [facility] Iron saturation [Mass Fracti on] in Serum or PlasmaOrdered By: Bakari Escalera on 10-28-2023 Iron saturation [Mass fraction] 17.9 % Low 20-50 [facility] Leukocytes [#/volume] correc nickolas for nucleated erythrocytes in Blood by Automated counOrdered By: Bakari Escalera on 10-28-2023 WBC corrected for nucl RBC Auto (Bld) [#/Vol] 6.8 10*3/uL 3.8-11.6 [facility] Leukocytes [#/volume] in Blo od by Automated countOrdered By: Bakari Escalera on 10-28-2023 WBC (Bld) [#/Vol] 6.8 10*3/uL Normal 3.8-11.6 [facility] Comment on above: Performed By: #### T SH3, FE and TIBC, CMP, PREETI, [id number], B12, CBC, FOL #### [facility] [address] Lymphocytes [#/volume] in Bl ood by Automated countOrdered By: Bakari Escalera on 10-28-2023 Lymphocytes (Bld) [#/Vol] 2.7 10*3/uL Normal 1.00-4.8 [facility] Comment on above: Performed By: #### T SH3, FE and TIBC, CMP, PREETI, [id number], B12, CBC, FOL #### [facility] [address] Lymphocytes/100 leukocytes i n Blood by Automated countOrdered By: Bakari Escalera on 10-28-2023 Lymphocytes/100 WBC (Bld) 39.7 % Normal . [facility] Comment on above: Performed By: #### T SH3, FE and TIBC, CMP, PREETI, [id number], B12, CBC, FOL #### [facility] [address] MCH [Entitic mass] by Automa nickolas countOrdered By: Bakari Escalera on 10-28-2023 MCH (RBC) [Entitic mass] 29.8 pg Normal 24.7-34.3 [facility] Comment on above: Performed By: #### T SH3, FE and TIBC, CMP, PREETI, [id number], B12, CBC, FOL #### [facility] [address] MCHC Auto (RBC) [Mass/Vol]Or dered By: Bakari Escalera on 10-28-2023 MCHC (RBC) [Mass/Vol] 33.4 g/dL 32.0-35.0 [facility] MCV [Entitic volume] by Auto mated countOrdered By: Bakari Escalera on 10-28-2023 MCV (RBC) [Entitic vol] 89.1 fL Normal 80-100 [facility] Comment on above: Performed By: #### T SH3, FE and TIBC, CMP, PREETI, [id number], B12, CBC, FOL #### [address] Neutrophils [#/volume] in Bl ood by Automated countOrdered By: Bakari Escalera on 10-28-2023 Neutrophils (Bld) [#/Vol] 3.4 10*3/uL Normal 1.8-7.7 [facility] Comment on above: Performed By: #### T SH3, FE and TIBC, CMP, PREETI, [id number], B12, CBC, FOL #### [address] No Panel InformationOrdered By: Bakari Escalera on 10-28-2023 Estimated GFR (CKD-EPI) > 60.0 mL/Min [facility] Creatinine Clearance (Chem N/A [facility] Nucleated erythrocytes [Pres ence] in Blood by Automated countOrdered By: Bakari Escalera on 10-28-2023 Nucleated RBC Auto Ql (Bld) 0.0 /100{WBC} 0-0.5 [facility] Platelet mean volume [Entiti c volume] in Blood by Automated countOrdered By: Bakari Escalera on 10-28-2023 Platelet mean volume (Bld) [Entitic vol] 8.1 fL Normal 6.3-10.7 [facility] Comment on above: Performed By: #### T SH3, FE and TIBC, CMP, PREETI, [id number], B12, CBC, FOL #### [address] Platelets [#/volume] in Bloo d by Automated countOrdered By: Bakari Escalera on 10-28-2023 Platelets (Bld) [#/Vol] 292 10*3/uL Normal 150-450 [facility] Comment on above: Performed By: #### T SH3, FE and TIBC, CMP, PREETI, [id number], B12, CBC, FOL #### [address] Potassium [Moles/volume] in Serum or PlasmaOrdered By: Bakari Escalera on 10-28-2023 Potassium [Moles/Vol] 4.5 mmol/L Normal 3.5-5.1 [facility] Comment on above: Performed By: #### T SH3, FE and TIBC, CMP, PREETI, [id number], B12, CBC, FOL #### [facility] [address] Protein [Mass/volume] in Ser um or PlasmaOrdered By: Bakari Escalera on 10-28-2023 Protein [Mass/Vol] 6.6 g/dL Normal 6.4-8.9 [facility] Comment on above: Performed By: #### T SH3, FE and TIBC, CMP, PREETI, [id number], B12, CBC, FOL #### [facility] [address] Serum globulin measurement b y calculation (mass/volume)Ordered By: Bakari Escalera on 10-28-2023 Globulin (S) [Mass/Vol] 2.3 g/dL Normal [facility] Comment on above: Performed By: #### T SH3, FE and TIBC, CMP, PREETI, [id number], B12, CBC, FOL #### [facility] [address] Serum or plasma albumin/glob ulin mass ratioOrdered By: Bakari Escalera on 10-28-2023 Albumin/Globulin [Mass ratio] 1.9 {ratio} Normal [facility] Comment on above: Performed By: #### T SH3, FE and TIBC, CMP, PREETI, [id number], B12, CBC, FOL #### [facility] [address] Serum or plasma anion gap de terminationOrdered By: Bakari Escalera on 10-28-2023 Anion gap [Moles/Vol] 6.6 mmol/L Normal 6.0-15.0 [facility] Comment on above: Performed By: #### T SH3, FE and TIBC, CMP, PREETI, [id number], B12, CBC, FOL #### [address] Sodium [Moles/volume] in Ser um or PlasmaOrdered By: Bakari Escalera on 10-28-2023 Sodium [Moles/Vol] 137 mmol/L Normal 136-145 [facility] Comment on above: Performed By: #### T SH3, FE and TIBC, CMP, PREETI, [id number], B12, CBC, FOL #### [address] Thyrotropin [Units/volume] i n Serum or PlasmaOrdered By: Bakari Escalera on 10-28-2023 TSH Qn 1.64 m[IU]/L Normal 0.45-5.33 [facility] Comment on above: Performed By: #### T SH3, FE and TIBC, CMP, PREETI, [id number], B12, CBC, FOL #### [address] Transferrin [Mass/volume] in Serum or PlasmaOrdered By: Bakari Escalera on 10-28-2023 Transferrin [Mass/Vol] 228 mg/dL Normal 203-362 [facility] Comment on above: Performed By: #### T SH3, FE and TIBC, CMP, PREETI, [id number], B12, CBC, FOL #### [address] Urea nitrogen [Mass/volume] in Serum or PlasmaOrdered By: Bakari Escalera on 10-28-2023 Urea nitrogen [Mass/Vol] 15 mg/dL Normal 7-25 [facility] Comment on above: Performed By: #### T SH3, FE and TIBC, CMP, PREETI, [id number], B12, CBC, FOL #### [address] Vitamin B12 ser/plasOrdered By: Bakari Escalera on 10-28-2023 Cobalamin (Vitamin B12) [Mass/Vol] 465 pg/mL Normal 180-914 [facility] Comment on above: Performed By: #### T SH3, FE and TIBC, CMP, PREETI, [id number], B12, CBC, FOL #### [facility] [address] [place] [address] [facility] Vitamin D 25 Hydroxy Totalon 10-28-2023 Vitamin D 25 Hydroxy Total 42.8 ng/mL Normal 30-100 [facility] Comment on above: Result Comment: TRAVIS MIN D STATUS 25(OH)VITAMIN D RANGE (ng/mL) Deficient <20 Insufficient 20 to <30 Sufficient 30 to 100 Reference: Marina Martinez, Tasha JOVEL, et al. Evaluation,treatment, and prevention of vitamin D deficiency; an Endocrine Society clinical practice guideline. JCEM. 2010; 96(7):1911-. PERFORMED BY: [place] [address] PATHOLOGIST BONE DRIER OPERATOR NAM BOWMAN M.D. Performed By: #### T SH3, FE and TIBC, CMP, PREETI, [id number], B12, CBC, FOL #### [facility] [address] [place] [id number] [facility] Vitamin D+Metabolites [Mass/ volume] in Serum or PlasmaOrdered By: Bakari Escalera on 10-28-2023 Vitamin D+Metabolites [Mass/Vol] 42.8 ng/mL 30-100 [facility] Comment on above: VITAMIN D STATUS 25( [place])VITAMIN D RANGE (ng/mL) Deficient <20 Insufficient 20 to <30Sufficient 30 to 100Reference: Marina Martinez, Tasha JOVEL, et al. Evaluation,treatment, and prevention of vitamin D deficiency; an Endocrine Society clinical practice guideline. JCEM. 2010; 96(7):1911-30. Urinalysis macro (dipstick) panel (U)on 10-20-2023 Bilirubin, UA Negative Negative - 4(70) +++ mg/dL [facility] Blood, UA Negative Negative - 50 Arturo/mcL [facility] Clarity, UA Clear [facility] Color, UA Light Yellow [facility] Glucose, UA Negative Negative - 2000(110) ++++ mg/dL [facility] Ketones, UA Negative Negative - 160(16) ++++ mg/dL [facility] Leukocytes, UA Negative Negative - 500+++ Jaylon/mcL [facility] Nitrite, UA Negative Negative - Positive [facility] pH, UA 6.0 5 - 9 [facility] Protein, UA Negative Negative - 1999(20) ++++ mg/dL [facility] Spec Grav, UA 1.005 1 - 1.03 [facility] Urobilinogen, UA 0.2 0.2 - 12 mg/dL [facility] Adulton 3 Psychiatry Adult Orders Anxiety [...] 06/19,. Denies psychologically traumatic, but painful at [facility] . INTERIM: Denies new medications. Taking Sertraline [...] rhythm, volume (more content not included)... Normal [facility] No report was sent Normal [facility] aminotransferase [En zymatic activity/volume] in Serum or PlasmaOrdered By: Bakari Escalera on 10-05-2022 ALT [Catalytic activity/Vol] 10 U/L [facility] Albumin [Mass/volume] in Ser um or Plasma by Bromocresol green (BCG) dye binding methHermann Area District Hospitaldered By: Bakari Escalera on 10-05-2022 Albumin BCG dye [Mass/Vol] 4.4 g/dL 3.5-5.7 [facility] Alkaline phosphatase [Enzyma tic activity/volume] in Serum or PlasmaOrdered By: Bakari Escalera on 10-05-2022 ALP [Catalytic activity/Vol] 65 U/L 34-104 [facility] Aspartate aminotransferase [ Enzymatic activity/volume] in Serum or PlasmaOrdered By: Bakari Escalera on 10-05-2022 AST [Catalytic activity/Vol] 13 U/L 13-39 [facility] Automated erythrocytes count in urine sediment (number/area)Ordered By: Bakari Escalera on 10-05-2022 RBC Auto (Urine sed) [#/Area] 1-2 [HPF] 0-4 [facility] Automated leukocytes count i n urine sediment (number/area)Ordered By: Bakari Escalera on 10-05-2022 WBC Auto (Urine sed) [#/Area] 1-2 [HPF] 0-4 [facility] Basophils Auto (Bld) [#/Vol] Ordered By: Bakari sEcalera on 10-05-2022 Basophils (Bld) [#/Vol] 0.0 10*3/uL 0.0-0.2 [facility] Basophils/100 WBC Auto (Bld) Ordered By: Bakari Escalera on 10-05-2022 Basophils/100 WBC (Bld) 0.6 % . F [facility] Bilirubin Test strip Ql (U)O rdered By: Bakari Escalera on 10-05-2022 Bilirubin Ql (U) Negative Negative [facility] Bilirubin.total [Mass/volume ] in Serum or PlasmaOrdered By: Bakari Escalera on 10-05-2022 Bilirubin [Mass/Vol] 0.4 mg/dL 0.3-1.0 [facility] Calcium [Mass/volume] in Ser um or PlasmaOrdered By: Bakari Escalera on 10-05-2022 Calcium [Mass/Vol] 9.6 mg/dL 8.6-10.3 [facility] Carbon dioxide, total [Moles /volume] in Serum or PlasmaOrdered By: Bakari Escalera on 10-05-2022 CO2 [Moles/Vol] 28.5 mmol/L 21.0-31.0 [facility] Chloride [Moles/volume] in S brenda or PlasmaOrdered By: Bakari Escalera on 10-05-2022 Chloride [Moles/Vol] 106 mmol/L 98-107 [facility] Cholesterol [Mass/volume] in Serum or PlasmaOrdered By: Bakari Escalera on 10-05-2022 Cholesterol [Mass/Vol] 154 mg/dL 140-200 [facility] Comment on above: Chol less than 200 m g/dl low riskChol 201-239 mg/dl borderline riskChol 240 mg/dl and greater high risk Cholesterol in LDL Calc [Mas s/Vol]Ordered By: Bakari Escalera on 10-05-2022 Cholesterol in LDL [Mass/Vol] 89 mg/dL 0-100 [facility] Comment on above: LDL ATP III CLASSIFI CATIONLDL less than 100 mg/dL OptimalLDL 100-129 mg/dL Near or above optimalLDL 130-159 mg/dL Borderline highLDL 160-189 mg/dL HighLDL greater than 189 mg/dL Very high Cholesterol in VLDL Calc [Ma ss/Vol]Ordered By: Bakari Escalera on 10-05-2022 Cholesterol in VLDL [Mass/Vol] 11 mg/dL [facility] Color Auto (U)Ordered By: Bowen Escalera on 10-05-2022 Color (U) Yellow Yellow [facility] Creatinine [Mass/volume] in Serum or PlasmaOrdered By: Bakari Escalera on 10-05-2022 Creatinine [Mass/Vol] 0.93 mg/dL 0.60-1.20 [facility] Eosinophils Auto (Bld) [#/Vo l]Ordered By: Bakari Escalera on 10-05-2022 Eosinophils (Bld) [#/Vol] 0.1 10*3/uL 0.0-0.45 [facility] Eosinophils/100 WBC Auto (Bl d)Ordered By: Bakari Escalera on 10-05-2022 Eosinophils/100 WBC (Bld) 1.0 % . [facility] Erythrocyte distribution wid th Auto (RBC) [Ratio]Ordered By: Bakari Escalera on 10-05-2022 Erythrocyte distribution width (RBC) [Ratio] 13.0 % 11.9-15.3 [facility] Globulin Calc (S) [Mass/Vol] Ordered By: Bakari Escalera on 10-05-2022 Globulin (S) [Mass/Vol] 2.4 g/dL F [facility] Glucose [Mass/volume] in Ser um or PlasmaOrdered By: Bakari Escalera on 10-05-2022 Glucose [Mass/Vol] 89 mg/dL 70-100 [facility] Comment on above: ADA recommended refe rence rangeRandom Glucose Reference Range is dependent on time and content of last meal. Glucose of more than 200 mg/dL in a nonstressed, ambulatory subject supports the diagnosis of Diabetes Mellitus. Hematocrit Auto (Bld) [Volum e fraction]Ordered By: Bakari Escalera on 10-05-2022 Hematocrit (Bld) [Volume fraction] 41.0 % 34.0-46.4 [facility] Hemoglobin [Mass/volume] in BloodOrdered By: Bakari Escalera on 10-05-2022 Hemoglobin (Bld) [Mass/Vol] 13.4 g/dL 11.8-15.4 [facility] Ketones Auto test strip (U) [Mass/Vol]Ordered By: Bakari Escalera on 10-05-2022 Ketones (U) [Mass/Vol] Negative Negative [facility] Laboratory - UrinalysisOrder ed By: Bakari Escalera on 10-05-2022 Hyaline casts LM Ql (Urine sed) 0-8 [LPF] 0-8 [facility] Leukocytes [#/volume] correc nickolas for nucleated erythrocytes in Blood by Automated counOrdered By: Bakari Escalera on 10-05-2022 WBC corrected for nucl RBC Auto (Bld) [#/Vol] 6.9 10*3/uL 3.8-11.6 [facility] Lymphocytes Auto (Bld) [#/Vo l]Ordered By: Bakari Escalera on 10-05-2022 Lymphocytes (Bld) [#/Vol] 2.1 10*3/uL 1.00-4.8 [facility] Lymphocytes/100 WBC Auto (Bl d)Ordered By: Bakari Escalera on 10-05-2022 Lymphocytes/100 WBC (Bld) 31.0 % . [facility] MCH Auto (RBC) [Entitic mass ]Ordered By: Bakari Escalera on 10-05-2022 MCH (RBC) [Entitic mass] 29.1 pg 24.7-34.3 [facility] MCHC Auto (RBC) [Mass/Vol]Or dered By: Bakari Escalera on 10-05-2022 MCHC (RBC) [Mass/Vol] 32.6 g/dL 32.0-35.0 [facility] MCV Auto (RBC) [Entitic vol] Ordered By: Bakari Escalera on 10-05-2022 MCV (RBC) [Entitic vol] 89.1 fL 80-100 F [facility] Monocytes Auto (Bld) [#/Vol] Ordered By: Bakari Escalrea on 10-05-2022 Monocytes (Bld) [#/Vol] 0.5 10*3/uL 0.0-0.8 [facility] Monocytes/100 WBC Auto (Bld) Ordered By: Bakari Escalera on 10-05-2022 Monocytes/100 WBC (Bld) 7.2 % . F [facility] Neutrophils Auto (Bld) [#/Vo l]Ordered By: Bakari Escalera on 10-05-2022 Neutrophils (Bld) [#/Vol] 4.1 10*3/uL 1.8-7.7 [facility] Neutrophils/100 WBC Auto (Bl d)Ordered By: Bakari Escalera on 10-05-2022 Neutrophils/100 WBC (Bld) 60.2 % . [facility] Nitrite Test strip Ql (U)Ord ered By: Bakari Escalera on 10-05-2022 Nitrite Ql (U) Negative Negative [facility] No Panel InformationOrdered By: Bakari Escalera on 10-05-2022 Estimated GFR (CKD-EPI) > 60.0 mL/Min [facility] Creatinine Clearance (Chem N/A [facility] Nucleated erythrocytes [Pres ence] in Blood by Automated countOrdered By: Bakari Escalera on 10-05-2022 Nucleated RBC Auto Ql (Bld) 0.1 /100{WBC} 0-0.5 [facility] Platelet mean volume Auto (B ld) [Entitic vol]Ordered By: Bkaari Escalera on 10-05-2022 Platelet mean volume (Bld) [Entitic vol] 7.7 fL 6.3-10.7 [facility] Platelets Auto (Bld) [#/Vol] Ordered By: Bakari Escalera on 10-05-2022 Platelets (Bld) [#/Vol] 293 10*3/uL 150-450 [facility] Potassium [Moles/volume] in Serum or PlasmaOrdered By: Bakari Escalera on 10-05-2022 Potassium [Moles/Vol] 4.6 mmol/L 3.5-5.1 [facility] Protein Auto test strip (U) [Mass/Vol]Ordered By: Bakrai Escalera on 10-05-2022 Protein (U) [Mass/Vol] Negative Negative [facility] Protein [Mass/volume] in Ser um or PlasmaOrdered By: Bakari Escalera on 10-05-2022 Protein [Mass/Vol] 6.8 g/dL 6.4-8.9 [facility] RBC Auto (Bld) [#/Vol]Ordere d By: Bakari Escalera on 10-05-2022 RBC (Bld) [#/Vol] 4.60 10*6/uL 3.60-5.00 [facility] Serum or plasma albumin/glob ulin mass ratioOrdered By: Bakari Escalera on 10-05-2022 Albumin/Globulin [Mass ratio] 1.8 {ratio} [facility] Serum or plasma anion gap de terminationOrdered By: Bakari Escalera on 10-05-2022 Anion gap [Moles/Vol] 11.1 mmol/L 6.0-15.0 [facility] Serum or plasma high density lipoprotein (HDL) cholesterol measurementOrdered By: Bakari Escalera on 10-05-2022 Cholesterol in HDL [Mass/Vol] 53 mg/dL 23-92 [facility] Comment on above: HDL CHOL ATP-III CLA SSIFICATION Cardiovascular RiskHDL > or equal to 60 mg/dL LOWHDL < 40 mg/dL HIGH Serum or plasma total choles terol/high density lipoprotein (HDL) cholesterol mass ratOrdered By: Bakari Escalera on 10-05-2022 Cholesterol.total/Manju sterol in HDL [Mass ratio] 2.9 {ratio} <5.0 [facility] Sodium [Moles/volume] in Ser um or PlasmaOrdered By: Bakari Escalera on 10-05-2022 Sodium [Moles/Vol] 141 mmol/L 136-145 [facility] Specific gravity Auto test s trip (U) [Rel density]Ordered By: Bakari Escalera on 10-05-2022 Specific gravity (U) [Rel density] 1.023 1.001-1.030 [facility] Squamous epithelial cells de tection in urine sediment by light microscopyOrdered By: Bakari Escalera on 10-05-2022 Epithelial cells.squamous LM Ql (Urine sed) 3-4 [HPF] 0-2 [facility] Thyrotropin [Units/volume] i n Serum or PlasmaOrdered By: Bakari Escalera on 10-05-2022 TSH Qn 2.13 m[IU]/L 0.45-5.33 [facility] Triglyceride [Mass/volume] i n Serum or PlasmaOrdered By: Bakari Escalera on 10-05-2022 Triglyceride [Mass/Vol] 58 mg/dL 0-149 F [facility] Comment on above: TRIG ATP III CLASSIF ICATIONTRIG less than 150 mg/dL NormalTRIG 150-199 mg/dL Borderline highTRIG 200-500 mg/dL High TRIG greater than 500 mg/dL Very highStandard traceable to the Center for Disease Conrtrol and Prevention (CDC) test method. Urea nitrogen [Mass/volume] in Serum or PlasmaOrdered By: Bakari Escalera on 10-05-2022 Urea nitrogen [Mass/Vol] 18 mg/dL 7-25 [facility] Urine bacteria detection by automated methodOrdered By: Bakari Escalera on 10-05-2022 Bacteria Auto Ql (U) None seen None Seen [facility] Urine clarity by refractomet ry automatedOrdered By: Bakari Escalera on 10-05-2022 Clarity Refractometry automated (U) Cloudy Clear [facility] Urine glucose measurement by automated test strip (mass/volume)Ordered By: Bakari Escalera on 10-05-2022 Glucose Auto test strip (U) [Mass/Vol] Normal mg/dL Normal [facility] Urine hemoglobin detection b y automated test stripOrdered By: Bakari Escalera on 10-05-2022 Hemoglobin Auto test strip Ql (U) Negative Negative [facility] Urine leukocyte esterase det ection by automated test stripOrdered By: Bakari Escalera on 10-05-2022 Leukocyte esterase Auto test strip Ql (U) Negative Negative [facility] Urobilinogen Auto test strip (U) [Mass/Vol]Ordered By: Bakari Escalera on 10-05-2022 Urobilinogen (U) [Mass/Vol] Normal mg/dL Normal [facility] WBC Auto (Bld) [#/Vol]Ordere d By: Bakari Escalera on 10-05-2022 WBC (Bld) [#/Vol] 6.9 10*3/uL 3.8-11.6 [facility] pH Auto test strip (U)Ordere d By: Bakari Escalera on 10-05-2022 pH (U) 7.0 [pH] 5.0-9.0 [facility] Office Visit (Cardiology)on 08-31-2022 Follow-up visit Diagnoses/Problems Assessed Hypotension (458.9) (I95.9) Class 1 obesity with body mass index (BMI) of 30.0 to 30.9 in adult (278.00,V85.30) (E66.9,Z68.30) Never a smoker Orders Class 1 obesity with body mass index (BMI) of 30.0 to 30.9 in adult Healthy Weight Tips; Status:Complete - Retrospective Authorization; Done: [id number] Some eating tips that can help you lose weight.; Status:Complete - Retrospective Authorization; Done: [id number] SocHx: Never a smoker Tobacco Use Screening; Status:Complete; Done: [id number] Patient Instructions Follow up in 6 months [...] 4:42:24 PM Augmentin Hives;; Updated By: Lorenza aHley; 07/22/2021 4:42:24 PM Ceclor CAPS Hives;; Recorded [...] Never a smoker Vitals Vital Signs Recorded: [id number] 11:58AM Height5 ft 10 in Ikcbsw892 lb BMI Mcrfhkeymw89.56 kg/m2 BSA Calculated2.14 Tobacco Useb) No Falls Screening (Age 18+)a) No falls within the last year Systolic Lying98, RUE, Supine Diastolic Lying60, RUE, Supine Systolic Fcbvqpz57, RUE, Sitting Diastolic Ephlsxe22, RUE, Sitting Systolic Izdwacib213, RUE, Standing Diastolic Ltuzcetz00, RUE, Standing Heart Rate Lying78, R Radial Heart Rate Aoewmto52, R Radial Heart Rate Kgdiswnl59, R Radial Signatures Electronically signed by : Ariel Calderon MD; Aug 31 2022 12:44PM EST (Author) Normal [facility] Tobacco Screening.on 023 Fall risk assessment a) No falls within the last year [facility] k 600 DO Work Phone: Tobacco use status [facility] b) No M [facility] k 600 DO Work Phone: Psychiatry Adulton [...] 06/19,. Denies psychologically traumatic, but painful at [facility] . INTERIM: Denies new medications. Taking Sertraline [...] 06-22-2022 BASO # 0.0 103/ul Normal 0.0-0.1 [facility] Comment on above: Performed By: #### C BC #### [facility] [address] [address] [address] Katharine Holden Basophils/100 WBC (Bld) 0.5 % Normal 0.2-2.0 [facility] Comment on above: Performed By: #### C BC #### [facility] [address] [address] [address] Katharine Holden EO # 0.0 103/ul Normal 0.0-0.7 [facility] Comment on above: Performed By: #### C BC #### [facility] [address] [place] [address] Dr. Katharine Holden Eosinophils/100 WBC (Bld) 0.2 % Critically low 0.9-7.0 [facility] Comment on above: Performed By: #### C BC #### [facility] [address] [place] [address] Dr. Katharine Holden Erythrocyte distribution width (RBC) [Ratio] 12.1 % Normal 11.0-15.0 [facility] Comment on above: Performed By: #### C BC #### [facility] [address] [place] [address] Dr. Katharine Holden Hematocrit (Bld) [Volume fraction] 44.6 % Normal 36.0-48.0 [facility] Comment on above: Performed By: #### C BC #### [facility] [address] [place] [address] Dr. Katharine Holden Hemoglobin (Bld) [Mass/Vol] 14.2 g/dL Normal 12.0-16.0 [facility] Comment on above: Performed By: #### C BC #### [facility] [address] [place] [address] Dr. Katharine Holden IG # 0.02 10e3/ul Normal 0.00-0.03 [facility] Comment on above: Performed By: #### C BC #### [facility] [address] [place] [address] Dr. Katharine Holden IG % 0.3 % Normal 0.0-0.5 [facility] Comment on above: Performed By: #### C BC #### [facility] [address] [place] [address] Dr. Katharine Holden LYMPH # 1.0 103/ul Critically low 1.2-3.8 [place] Comment on above: Performed By: #### C BC #### [facility] [address] [place] [address] Dr. Katharine Holden Lymphocytes/100 WBC (Bld) 17.8 % Critically low 20.5-60.0 [facility] Comment on above: Performed By: #### C BC #### [facility] [address] [place] [address] Dr. Katharine Holden MANUAL DIFF REQ NO Normal [facility] Comment on above: Performed By: #### C BC #### [facility] [address] [place] [address] Dr. Katharine Holden MCH (RBC) [Entitic mass] 28.9 pg Normal 26.7-34.0 [facility] Comment on above: Performed By: #### C BC #### [facility] [address] [place] [address] Dr. Katharine Holden MCHC (RBC) [Mass/Vol] 31.8 g/dL Normal 29.9-35.2 [facility] Comment on above: Performed By: #### C BC #### [facility] [address] [place] [address] Dr. Katharine Holden MCV (RBC) [Entitic vol] 90.7 fL Normal 81.0-99.0 [facility] Comment on above: Performed By: #### C BC #### [facility] [address] [place] [address] Dr. Katharine Holden MONO # 0.4 103/ul Normal 0.3-0.8 [facility] Comment on above: Performed By: #### C BC #### [facility] [address] [place] [address] Dr. Katharine Holden Monocytes/100 WBC (Bld) 7.0 % Normal 1.7-12.0 [facility] Comment on above: Performed By: #### C BC #### [facility] [address] [place] [address] Dr. Katharine Holden NEUT # 4.3 103/ul Normal 1.4-6.5 [facility] Comment on above: Performed By: #### C BC #### [facility] [address] [address] [address] Katharine Holden Neutrophils/100 WBC (Bld) 74.2 % Normal 43.0-75.0 [facility] Comment on above: Performed By: #### C BC #### [facility] [address] [address] [address] Katharine Holden Platelet mean volume (Bld) [Entitic vol] 9.8 fL Normal 9.5-13.5 [facility] Comment on above: Performed By: #### C BC #### [facility] [address] [address] [address] Katharine Holden PLT 256 103/ul Normal 150-450 [facility] Comment on above: Performed By: #### C BC #### [facility] [address] [place] [address] Dr. Katharine Holden RBC 4.92 106/ul Normal 4.20-5.40 [facility] Comment on above: Performed By: #### C BC #### [facility] [address] [address] [address] Katharine Holden WBC 5.7 103/ul Normal 4.0-11.0 [facility] Comment on above: Performed By: #### C BC #### [facility] [address] [place] [address] Dr. Katharine Holden PREG HCG QUALon 06-22-2022 , QUAL Negative Normal NEGATIVE [facility] Comment on above: Performed By: #### P REG #### [facility] [address] [place] [address] Dr. Katharine Holden PROF 14(COMP METB)on 023 Albumin [Mass/Vol] 3.7 g/dL Normal 3.4-5.0 [facility] Comment on above: Performed By: #### C MP #### [facility] [address] [place] [address] Dr. Katharine Holden Albumin/Globulin [Mass ratio] 1.1 {ratio} Normal [facility] Comment on above: Performed By: #### C MP #### [facility] [address] [place] [address] Dr. Katharine Holden ALP [Catalytic activity/Vol] 91 U/L Normal 46-116 [facility] Comment on above: Performed By: #### C MP #### [facility] [address] [place] [address] Dr. Katharine Holden ALT [Catalytic activity/Vol] 28 U/L Normal 14-59 [facility] Comment on above: Performed By: #### C MP #### [facility] [address] [place] [address] Dr. Katharine Holden Anion gap [Moles/Vol] 12.6 mmol/L Normal [facility] Comment on above: Performed By: #### C MP #### [facility] [address] [place] [address] Dr. Katharine Holden AST [Catalytic activity/Vol] 18 U/L Normal 15-37 [facility] Comment on above: Performed By: #### C MP #### [facility] [address] [place] [address] Dr. Katharine Holden Bilirubin [Mass/Vol] 0.3 mg/dL Normal 0.2-1.0 [facility] Comment on above: Performed By: #### C MP #### [facility] [address] [place] [address] Dr. Katharine Holden Calcium [Mass/Vol] 8.5 mg/dL Normal 8.5-10.1 [facility] Comment on above: Performed By: #### C MP #### [facility] [address] [place] [address] Dr. Katharine Holden Chloride [Moles/Vol] 105 mmol/L Normal 98-107 [facility] Comment on above: Performed By: #### C MP #### [facility] [address] [place] [address] Dr. Katharine Holden CO2 [Moles/Vol] 25.9 mmol/L Normal 21.0-32.0 [facility] Comment on above: Performed By: #### C MP #### [facility] [address] [place] [address] Dr. Katharine Holden Creatinine [Mass/Vol] 0.95 mg/dL Normal 0.55-1.02 [facility] Comment on above: Performed By: #### C MP #### [facility] [address] [address] [address] Katharine Holden EGFR-AF [place]I >60 Normal >=60 [facility] Comment on above: Performed By: #### C MP #### [facility] [address] [address] [address] Katharine Holden EGFR-NON AF [place] >60 Normal >=60 [facility] Comment on above: Performed By: #### C MP #### [facility] [address] [address] [address] Katharine Holden Globulin (S) [Mass/Vol] 3.4 g/dL Normal [facility] Comment on above: Performed By: #### C MP #### [facility] [address] [address] [address] Katharine Holden Glucose [Mass/Vol] 108 mg/dL Critically high 74-106 [facility] Comment on above: Performed By: #### C MP #### [facility] [address] [address] [address] Katharine Holden Potassium [Moles/Vol] 3.5 mmol/L Normal 3.5-5.1 [facility] Comment on above: Performed By: #### C MP #### [facility] [address] [address] [address] Katharine Holden Protein [Mass/Vol] 7.1 g/dL Normal 6.4-8.2 [facility] Comment on above: Performed By: #### C MP #### [facility] [address] [address] [address] Katharine Holden Sodium [Moles/Vol] 140 mmol/L Normal 136-145 [facility] Comment on above: Performed By: #### C MP #### [facility] [address] [address] [address] Katharine Holden Urea nitrogen [Mass/Vol] 11.0 mg/dL Normal 7.0-18.0 [facility] Comment on above: Performed By: #### C MP #### [facility] [address], [place] [address] Dr. Katharine Holden Urea nitrogen/Creatinine [Mass ratio] 11.6 mg/mg Normal [facility] Comment on above: Performed By: #### C MP #### [facility] [address], [place] [address] Dr. Katharine Holden Psychiatry Adulton 3 Psychiatry [...] 06/19,. Denies psychologically traumatic, but painful at [facility] . INTERIM: Reduced Sertraline from 100 mg [...] 50 mg po qam. ANXIETY Self rates 6-7 /10. Since delivery some fears of dying and [...] or retarda (more content not included)... 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 Denies psychologically traumatic, but painful at [facility] . INTERIM: Now at 4 month pp. [...] to 300m XL po qam. Went o [employer] over holiday break. Sees [facility] [...] not endors (more content not included)... Normal [facility] Psychiatry Adulton 2 Psychiatry Adult Diagnoses/Problems Assessed [...] 06/19,. Denies psychologically traumatic, but painful at [facility].Now 7 month pp. Feeling like Zombie since [...] 09-25-2021 Basophils (Bld) [#/Vol] 0.0 10*3/uL 0.0-0.2 [facility] Basophils/100 WBC Auto (Bld) Ordered By: Bakari Escalera on 09-25-2021 Basophils/100 WBC (Bld) 0.5 % . F [facility] Blood hemoglobin measurement (mass/volume)Ordered By: Bakari Escalera on 09-25-2021 Hemoglobin (Bld) [Mass/Vol] 13.0 g/dL 11.8-15.4 [facility] Blood leukocytes automated c ount (number/volume)Ordered By: Bakari Escalera on 09-25-2021 WBC (Bld) [#/Vol] 5.8 10*3/uL 4.5-11.0 [facility] Body fluid albumin measureme nt (mass/volume)Ordered By: Bakari Escalera on 09-25-2021 Albumin (Body fld) [Mass/Vol] 3.9 g/dL 3.2-5.5 [facility] Creatinine and Glomerular fi ltration rate.predicted panel (S/P/Bld)Ordered By: Bakari Escalera on 09-25-2021 Creatinine [Mass/Vol] 0.84 mg/dL 0.44-1.03 [facility] Eosinophils Auto (Bld) [#/Vo l]Ordered By: Bakari Escalera on 09-25-2021 Eosinophils (Bld) [#/Vol] 0.0 10*3/uL 0.0-0.45 [facility] Eosinophils/100 WBC Auto (Bl d)Ordered By: Bakari Escalera on 09-25-2021 Eosinophils/100 WBC (Bld) 0.8 % . [facility] Erythrocyte distribution wid th Auto (RBC) [Ratio]Ordered By: Bakari Escalera on 09-25-2021 Erythrocyte distribution width (RBC) [Ratio] 13.3 % 11.9-15.3 [facility] Estimated glomerular filtrat ion rate (GFR) non- AmericanOrdered By: Bakari Escalera on 09-25-2021 GFR/1.73 sq M.predicted among non-blacks MDRD (S/P/Bld) [Vol rate/Area] > 60 mL/Min [facility] Globulin Calc (S) [Mass/Vol] Ordered By: Bakari Escalera on 09-25-2021 Globulin (S) [Mass/Vol] 2.4 g/dL F [facility] Hematocrit Auto (Bld) [Volum e fraction]Ordered By: Bakari Escalera on 09-25-2021 Hematocrit (Bld) [Volume fraction] 40.4 % 34.0-46.4 [facility] Laboratory - Hematology and Cell countsOrdered By: Bakari Escalera on 09-25-2021 Nucleated RBC/100 WBC (Bld) [Ratio] 0.0 % 0-0.5 [facility] Lymphocytes Auto (Bld) [#/Vo l]Ordered By: Bakari Escalera on 09-25-2021 Lymphocytes (Bld) [#/Vol] 1.9 10*3/uL 1.00-4.8 [facility] Lymphocytes/100 WBC Auto (Bl d)Ordered By: Bakari Escalera on 09-25-2021 Lymphocytes/100 WBC (Bld) 33.3 % . [facility] MCH Auto (RBC) [Entitic mass ]Ordered By: Bakari Escalera on 09-25-2021 MCH (RBC) [Entitic mass] 28.4 pg 24.7-34.3 [facility] MCHC Auto (RBC) [Mass/Vol]Or dered By: Bakari Escalera on 09-25-2021 MCHC (RBC) [Mass/Vol] 32.0 g/dL 32.0-35.0 [facility] MCV Auto (RBC) [Entitic vol] Ordered By: Baakri Escalera on 09-25-2021 MCV (RBC) [Entitic vol] 88.8 fL 80-100 F [facility] Monocytes Auto (Bld) [#/Vol] Ordered By: Bakari Escalera on 09-25-2021 Monocytes (Bld) [#/Vol] 0.4 10*3/uL 0.0-0.8 [facility] Monocytes/100 WBC Auto (Bld) Ordered By: Bakari Escalera on 09-25-2021 Monocytes/100 WBC (Bld) 6.3 % . F [facility] Neutrophils Auto (Bld) [#/Vo l]Ordered By: Bakari Escalera on 09-25-2021 Neutrophils (Bld) [#/Vol] 3.4 10*3/uL 1.8-7.7 [facility] Neutrophils/100 WBC Auto (Bl d)Ordered By: Bakari Escalera on 09-25-2021 Neutrophils/100 WBC (Bld) 59.1 % . [facility] No Panel InformationOrdered By: Bakari Escalera on 09-25-2021 Estimated GFR () > 60 mL/Min [facility] Comment on above: GFR estimated refere nce range: According to KDOQI guidelines, <60 ml/min/1.73m2 is sufficient to diagnose a patient with chronic kidney disease. Pharmacy Creatinine Clearance (Chem N/A [facility] Platelet mean volume Auto (B ld) [Entitic vol]Ordered By: Bakari Escalera on 09-25-2021 Platelet mean volume (Bld) [Entitic vol] 8.5 fL 6.3-10.7 [facility] Platelets Auto (Bld) [#/Vol] Ordered By: Bakari Escalera on 09-25-2021 Platelets (Bld) [#/Vol] 282 10*3/uL 150-450 [facility] Protein [Mass/volume] in Ser um or PlasmaOrdered By: Bakari Escalera on 09-25-2021 Protein [Mass/Vol] 6.3 g/dL 6.1-7.9 [facility] RBC Auto (Bld) [#/Vol]Ordere d By: Bakari Escalera on 09-25-2021 RBC (Bld) [#/Vol] 4.56 10*6/uL 3.60-5.00 [facility] Serum or plasma alanine moore otransferase measurement without P-5'-P (enzymatic activiOrdered By: Bakari Escalera on 09-25-2021 ALT No additional P-5'-P [Catalytic activity/Vol] 15 U/L 10-60 [facility] Serum or plasma albumin/glob ulin mass ratioOrdered By: Bakari Escalera on 09-25-2021 Albumin/Globulin [Mass ratio] 1.6 {ratio} [facility] Serum or plasma alkaline shady sphatase measurement (enzymatic activity/volume)Ordered By: Bakari Escalera on 09-25-2021 ALP [Catalytic activity/Vol] 63 U/L 32-92 [facility] Serum or plasma aspartate am inotransferase measurement (enzymatic activity/volume)Ordered By: Bakari Escalera on 09-25-2021 AST [Catalytic activity/Vol] 16 U/L 10-42 [facility] Serum or plasma calcium gabi urement (mass/volume)Ordered By: Bakari Escalera on 09-25-2021 Calcium [Mass/Vol] 9.9 mg/dL 8.2-10.2 [facility] Serum or plasma chloride nicolas surement (moles/volume)Ordered By: Bakari Escalera on 09-25-2021 Chloride [Moles/Vol] 103 mmol/L 95-114 [facility] Serum or plasma glucose gabi urement (mass/volume)Ordered By: Bakari Escalera on 09-25-2021 Glucose [Mass/Vol] 81 mg/dL 70-100 [facility] Comment on above: ADA recommended refe rence range Random Glucose Reference Range is dependent on time and content of last meal. Glucose of more than 200 mg/dL in a nonstressed, ambulatory subject supports the diagnosis of Diabetes Mellitus. Serum or plasma potassium me asurement (moles/volume)Ordered By: Bakari Escalera on 09-25-2021 Potassium [Moles/Vol] 4.7 mmol/L 3.5-5.1 [facility] Serum or plasma sodium measu rement (moles/volume)Ordered By: Bakari Escalera on 09-25-2021 Sodium [Moles/Vol] 138 mmol/L 136-146 [facility] Serum or plasma total biliru bin measurement (mass/volume)Ordered By: Bakari Escalera on 09-25-2021 Bilirubin [Mass/Vol] 0.5 mg/dL 0.3-1.2 [facility] Serum or plasma total carbon dioxide measurement (moles/volume)Ordered By: Bakari Escalera on 09-25-2021 CO2 [Moles/Vol] 29.8 mmol/L 22.0-30.0 [facility] Serum or plasma urea nitroge n measurement (mass/volume)Ordered By: Bakari Escalera on 09-25-2021 Urea nitrogen [Mass/Vol] 15 mg/dL 9-23 [facility] TSH DL <= 0.005 mIU/L QnOrde red By: Bakari Escalera on 09-25-2021 TSH Qn 1.07 m[IU]/L 0.45-5.33 [facility] Tobacco Screening.on 022 Tobacco use status CPHS b) No [facility] [address] DO Work Phone: Tobacco Screening. Yes [facility] [address] DO Work Phone: CBC AUTO DIFFon 07-23-2021 BASO # 0.0 103/ul Normal 0.0-0.1 [facility] Comment on above: Performed By: #### C BC #### [facility] [address] [address] [address] Katharine Holden Basophils/100 WBC (Bld) 0.2 % Normal 0.2-2.0 [facility] Comment on above: Performed By: #### C BC #### [facility] [address] [place] [address] Dr. Katharine Holden EO # 0.0 103/ul Normal 0.0-0.7 [facility] Comment on above: Performed By: #### C BC #### [facility] [address] [place] [address] Dr. Katahrine Holden Eosinophils/100 WBC (Bld) 0.3 % Critically low 0.9-7.0 [facility] Comment on above: Performed By: #### C BC #### [facility] [address] [place] [address] Dr. Katharine Holden Erythrocyte distribution width (RBC) [Ratio] 12.1 % Normal 11.0-15.0 [facility] Comment on above: Performed By: #### C BC #### [facility] [address] [place] [address] Dr. Katharine Holden Hematocrit (Bld) [Volume fraction] 41.6 % Normal 36.0-48.0 [facility] Comment on above: Performed By: #### C BC #### [facility] [address] [place] [address] Dr. Katharine Holden Hemoglobin (Bld) [Mass/Vol] 13.2 g/dL Normal 12.0-16.0 [facility] Comment on above: Performed By: #### C BC #### [facility] [address] [place] [address] Dr. Katharine Hloden IG # 0.04 10e3/ul Critically high 0.00-0.03 [facility] Comment on above: Performed By: #### C BC #### [facility] [address] [place] [address] Dr. Katharine Holden IG % 0.4 % Normal 0.0-0.5 [facility] Comment on above: Performed By: #### C BC #### [facility] [address] [address] [address] Katharine Holden LYMPH # 0.9 103/ul Critically low 1.2-3.8 [place] Comment on above: Performed By: #### C BC #### [facility] [address] [address] [address] Katharine Holden Lymphocytes/100 WBC (Bld) 9.5 % Critically low 20.5-60.0 [facility] Comment on above: Performed By: #### C BC #### [facility] [address] [address] [address] Katharine Holden MANUAL DIFF REQ NO Normal [facility] Comment on above: Performed By: #### C BC #### [facility] [address] [place] [address] Dr. Katharine Holden MCH (RBC) [Entitic mass] 29.2 pg Normal 26.7-34.0 [facility] Comment on above: Performed By: #### C BC #### [facility] [address] [place] [address] Dr. Katharine Holden MCHC (RBC) [Mass/Vol] 31.7 g/dL Normal 29.9-35.2 [facility] Comment on above: Performed By: #### C BC #### [facility] [address] [place] [address] Dr. Katharine Holden MCV (RBC) [Entitic vol] 92.0 fL Normal 81.0-99.0 [facility] Comment on above: Performed By: #### C BC #### [facility] [address] [place] [address] Dr. Katharine Holden MONO # 0.6 103/ul Normal 0.3-0.8 [facility] Comment on above: Performed By: #### C BC #### [facility] [address] [place] [address] Dr. Katharine Holden Monocytes/100 WBC (Bld) 6.7 % Normal 1.7-12.0 [facility] Comment on above: Performed By: #### C BC #### [facility] [address] [place] [address] Dr. Katharine Holden NEUT # 7.9 103/ul Critically high 1.4-6.5 [facility] Comment on above: Performed By: #### C BC #### [facility] [address] [place] [address] Dr. Katharine Holden Neutrophils/100 WBC (Bld) 82.9 % Critically high 43.0-75.0 [facility] Comment on above: Performed By: #### C BC #### [facility] [address] [place] [address] Dr. Katharine Holden Platelet mean volume (Bld) [Entitic vol] 9.1 fL Critically low 9.5-13.5 [facility] Comment on above: Performed By: #### C BC #### [facility] [address] [place] [address] Dr. Katharine Holden PLT 269 103/ul Normal 150-450 [facility] Comment on above: Performed By: #### C BC #### [facility] [address] [place] [address] Dr. Katharine Holden RBC 4.52 106/ul Normal 4.20-5.40 [facility] Comment on above: Performed By: #### C BC #### [facility] [address] [place] [address] Dr. Katharine Holden WBC 9.6 103/ul Normal 4.0-11.0 [facility] Comment on above: Performed By: #### C BC #### [facility] [address] [place] [address] Dr. Katharine Holden [facility]on SARS-CoV-2 (COVID-19) RNA GABRIEL+probe Ql (Unsp spec) Not detected Normal NOT DETECTED [facility] Comment on above: Result Comment: [...] for this test is supported by the [employer] of Health and Human Service's declaration that [...] used). Performed By: #### C VDTB #### [facility] [address] [place] [address] Dr. Katharine Holden ER URINE PROFILEon 2 Bilirubin Ql (U) SMALL Abnormal NEGATIVE [facility] Comment on above: Performed By: #### Pat PÉREZ UMICRO #### [facility] [address] [place] [address] Dr. Katharine Holden Clarity (U) CLEAR Normal CLEAR [facility] Comment on above: Performed By: #### Pat PÉREZ UMICRO #### [facility] [address] [place] [address] Dr. Katharine Holden Color (U) YELLOW Normal YELLOW [facility] Comment on above: Performed By: #### E ELISA, UMICRO #### [facility] [address] [place] [address] Dr. Katharine Holden ERUD A micrscopic examination will be performed if indicated. Normal [facility] Comment on above: Performed By: #### E REGINALDR UMICRO #### [facility] [address] [place] [address] Dr. Katharine Holden Glucose Ql (U) Negative Normal NEGATIVE [facility] Comment on above: Performed By: #### E REGINALDR UMICRO #### [facility] [address] [place] [address] Dr. Katharine Holden Hemoglobin Ql (U) Negative Normal NEGATIVE [facility] Comment on above: Performed By: #### E ELISA, UMICRO #### [facility] [address] [place] [address] Dr. Katharine Holden Ketones Ql (U) 40 mg/dl Abnormal NEGATIVE [facility] Comment on above: Performed By: #### THERESE ROCHARO #### [facility] [address] [place] [address] Dr. Katharine Holden LEUKOCYTES TRACE Abnormal NEGATIVE [facility] Comment on above: Performed By: #### THERESE ROCHARO #### [facility] [address] [place] [address] Dr. Katharine Holden Nitrite Ql (U) Negative Normal NEGATIVE [facility] Comment on above: Performed By: #### THERESE ROCHARO #### [facility] [address] [place] [address] Dr. Katharine Holden pH (U) 6.0 [pH] Normal 5-9 [facility] Comment on above: Performed By: #### THERESE ROCHARO #### [facility] [address] [place] [address] Dr. Katharine Holden SPEC GRAVITY 1.025 Normal 1.005-<=1.0 25 [facility] Comment on above: Performed By: #### THERESE ROCHARO #### [facility] [address] [place] [address] Dr. Katharine Holden UA PROTEIN Negative Normal NEGATIVE/ TRACE [facility] Comment on above: Performed By: #### THERESE ROCHARO #### [facility] [address] [place] [address] Dr. Katharine Holden UR MICRO IND INDICATED Normal [facility] Comment on above: Performed By: #### SHERRILL ROCHAICRO #### [facility] [address] [place] [address] Dr. Katharine Holden Urobilinogen Qn (U) 0.2 {Sabino'U}/dL Normal 0.2 - 1. 0 [facility] Comment on above: Performed By: #### Pat PÉREZ UMICRO #### [facility] [address] [place] [address] Dr. Katharine Holden INFLUENZA A AND B AGon 07-23 INFLUANEGH SEE BELOW Normal [facility] Comment on above: Result Comment: Nega tive for Flu A protein angiten. Infection due to Flu A cannot be ruled out. Flu A angiten in the sample may be below the detection limit of the test. Performed By: #### I NFLUAB #### [facility] [address] [place] [address] Dr. Katharine Holden INFLUBNEG SEE BELOW Normal [facility] Comment on above: Result Comment: Nega tive for Flu B protein antigen. Infection due to Flu B cannot be ruled out. Flu B antigen in the sample may be below the detection limit of the test. Performed By: #### I NFLUAB #### [facility] [address] [place] [address] Dr. Katharine Holden INFLUENZA A AG Negative Normal NEGATIVE SEE COMMENT [facility] Comment on above: Performed By: #### I NFLUAB #### [facility] [address] [place] [address] Dr. Katharine Holden INFLUENZA B AG Negative Normal NEGATIVE SEE COMMENT [facility] Comment on above: Performed By: #### I NFLUAB #### [facility] [address] [place] [address] Dr. Katharine Holden INTERNAL CONTROLS Within Normal Limits Normal Wi thin Normal Limits [facility] Comment on above: Performed By: #### I NFLUAB #### [facility] [address] [place] [address] Dr. Katharine Holden LACTATE/LACTIC ACIDon 2021 Lactate [Moles/Vol] 0.7 mmol/L Normal 0.4-1.9 [facility] Comment on above: Performed By: #### C MP, LIPA #### [facility] [address] [place] [address] Dr. Katharine Holden LIPASEon 07-23-2021 Lipase [Catalytic activity/Vol] 61.0 U/L Critically low 73.0-393.0 [facility] Comment on above: Performed By: #### C SHOAIB LIPA #### [facility] [address] [place] [address] Dr. Katharine Holden PROF 14(COMP METB)on 022 Albumin [Mass/Vol] 3.7 g/dL Normal 3.4-5.0 [facility] Comment on above: Performed By: #### C MP, LIPA #### [facility] [address] [address] [address] Katharine Holden Albumin/Globulin [Mass ratio] 1.0 {ratio} Normal [facility] Comment on above: Performed By: #### C MP, LIPA #### [facility] [address] [address] [address] Katharine Holden ALP [Catalytic activity/Vol] 101 U/L Normal 46-116 [facility] Comment on above: Performed By: #### C MP, LIPA #### [facility] [address] [address] [address] Katharine Holden ALT [Catalytic activity/Vol] 24 U/L Normal 14-59 [facility] Comment on above: Performed By: #### C MP, LIPA #### [facility] [address] [address] [address] Katharine Holden Anion gap [Moles/Vol] 14.7 mmol/L Normal [facility] Comment on above: Performed By: #### C MP, LIPA #### [facility] [address] [address] [address] Katharine Holden AST [Catalytic activity/Vol] 14 U/L Critically low 15-37 [facility] Comment on above: Performed By: #### C MP, LIPA #### [facility] [address] [address] [address] Katharine Holden Bilirubin [Mass/Vol] 0.6 mg/dL Normal 0.2-1.0 [facility] Comment on above: Performed By: #### C MP, LIPA #### [facility] [address] [address] [address] Katharine Holden Calcium [Mass/Vol] 8.6 mg/dL Normal 8.5-10.1 [facility] Comment on above: Performed By: #### C MP, LIPA #### [facility] [address] [address] [address] Katharine Holden Chloride [Moles/Vol] 102 mmol/L Normal 98-107 [facility] Comment on above: Performed By: #### C MP, LIPA #### [facility] [address] [address] [address] Katharine Holden CO2 [Moles/Vol] 24.2 mmol/L Normal 21.0-32.0 [facility] Comment on above: Performed By: #### C MP, LIPA #### [facility] [address] [address] [address] Katharine Holden Creatinine [Mass/Vol] 0.95 mg/dL Normal 0.55-1.02 [facility] Comment on above: Performed By: #### C MP, LIPA #### [facility] [address] [place] [address] Dr. Katharine Holden EGFR-AF [place]I >60 Normal >=60 [facility] Comment on above: Performed By: #### C MP, LIPA #### [facility] [address] [address] [address] Katharine Holden EGFR-NON AF [place] >60 Normal >=60 [facility] Comment on above: Performed By: #### C MP, LIPA #### [facility] [address] [address] [address] Katharine Holden Globulin (S) [Mass/Vol] 3.8 g/dL Normal [facility] Comment on above: Performed By: #### C MP, LIPA #### [facility] [address] [address] [address] Katharine Holden Glucose [Mass/Vol] 105 mg/dL Normal 74-106 [facility] Comment on above: Performed By: #### C MP, LIPA #### [facility] [address] [address] [address] Katharine Holden Potassium [Moles/Vol] 3.9 mmol/L Normal 3.5-5.1 [facility] Comment on above: Performed By: #### C MP, LIPA #### [facility] [address] [place] [address] Dr. Katharine Holden Protein [Mass/Vol] 7.5 g/dL Normal 6.4-8.2 [facility] Comment on above: Performed By: #### C MP, LIPA #### [facility] [address] [place] [address] Dr. Katharine Holden Sodium [Moles/Vol] 137 mmol/L Normal 136-145 [facility] Comment on above: Performed By: #### C MP, LIPA #### [facility] [address] [place] [address] Dr. Katharine Holden Urea nitrogen [Mass/Vol] 20.0 mg/dL Critically high 7.0-18.0 [facility] Comment on above: Performed By: #### C SHOAIB, LIPA #### [facility] [address] [place] [address] Dr. Katharine Holden Urea nitrogen/Creatinine [Mass ratio] 21.1 mg/mg Normal [facility] Comment on above: Performed By: #### C SHOAIB, LIPA #### [facility] [address] [place] [address] Dr. Katharine Holden URINE MICROSCOPIC ONLYon BACTERIA TRACE Abnormal NONE SEEN [facility] Comment on above: Performed By: #### Pat PÉREZ UMICRO #### [facility] [address] [place] [address] Dr. Katharine Holden Bacteria identified Cx Nom (U) NOT INDICATED Normal [facility] Comment on above: Performed By: #### Pat PÉREZ UMICRO #### [facility] [address] [place] [address] Dr. Katharine Holden CAST NONE SEEN Normal NONE SEEN [facility] Comment on above: Performed By: #### Pat PÉREZ UMICRO #### [facility] [address] [place] [address] Dr. Katharine Holden Crystals LM Nom (Urine sed) NONE SEEN Normal NONE SEEN [facility] Comment on above: Performed By: #### Pat PÉREZ UMICRO #### [facility] [address] [address] [address] Katharine Holden Epithelial cells LM Ql (Urine sed) NONE SEEN Normal NONE SEEN /RARE [facility] Comment on above: Performed By: #### E RUR, UMICRO #### [facility] [address] [place] [address] Dr. Katharine Holden MUCOUS SMALL Abnormal NONE SEEN [facility] Comment on above: Performed By: #### E RUR, UMICRO #### [facility] [address] [address] [address] Katharine Holden RBC NONE SEEN Abnormal 0-2 [facility] Comment on above: Performed By: #### E RUR, UMICRO #### [facility] [address] [place] [address] Dr. Katharine Holden WBC 0-2 Abnormal NONE SEEN [facility] Comment on above: Performed By: #### E RUR, UMICRO #### [facility] [address] [place] [address] Dr. Katharine Holden Hematocriton 08-29-2020 Hematocrit (Bld) [Volume fraction] 41.9 % See Below QT-QBEOX-Eia man 310 IVF Work Phone: Comment on above: Reference Range: 36. 0 - 46.0 Progesterone, Serumon 2020 Progesterone [Mass/Vol] 1.6 ng/mL M G-OBGYN-Ris man 310 IVF Work Phone: Comment on above: Progesterone is perf ormed using the [employer] Access Immunoassay. Progesterone testing is performed using a different test methodology at [facility] than other [facility]. Direct result comparison should only be made within the same method.REF VALUESMALE <0.2-0.8 FOLLICULAR PHASE <0.2-1.5 LUTEAL PHASE 7.4-15.4 POSTMENOPAUSAL <0.2-0.2 1ST TRIMESTER 12.0-84.0 2ND TRIMESTER 10.2-58.8 3RD TRIMESTER 46.5-160 HCG, Beta Quantitativeon HCG.beta subunit Qn 2 m[IU]/mL MG-Ps ychiatr y-[place] 201B DO Work Phone: Comment on above: [...] HCG measurement is performed using the [employer] Access Immunoassay which detects intact HCG and free beta HCG subunit. This test is not indicated for use as a tumor marker. HCG testing is performed using a different test methodology at [facility] than other [facility]. Direct result comparison should only be made within the same method. REF VALUESNON FEMALE <5MALES <5 Progesterone, Serumon 2020 Progesterone [Mass/Vol] 5.5 ng/mL G-[facility] y-[place] [address] DO Work Phone: Comment on above: Progesterone is perf ormed using the [employer] Access Immunoassay. Progesterone testing is performed using a different test methodology at [facility] than other [facility]. Direct result comparison should only be made within the same method.REF VALUESMALE <0.2-0.8 FOLLICULAR PHASE <0.2-1.5 LUTEAL PHASE 7.4-15.4 POSTMENOPAUSAL <0.2-0.2 1ST TRIMESTER 12.0-84.0 2ND TRIMESTER 10.2-58.8 3RD TRIMESTER 46.5-160 Estradiol, Serumon 0 E2 [Mass/Vol] 557 pg/mL MG-OBGYN-Ri s man 310 IVF Work Phone: Comment on above: Estradiol measuremen t is performed using the [employer] Access Sensitive Estradiol Immunoassay. Estradiol testing is performed using a different test methodology at [facility] than other [facility]. Direct result comparison should only be made within the same method.REF VALUESEARLY FOLLICULAR 22-115MID FOLLICULAR 25-115OVULATORY PEAK 32-517MID LUTEAL 37-246POSTMENOPAUSE <15- 25MALE <15- 32 Estradiol, Serumon 0 E2 [Mass/Vol] 204 pg/mL MG-OBGYN-Ri s man 310 IVF Work Phone: Comment on above: Estradiol measuremen t is performed using the [employer] Access Sensitive Estradiol Immunoassay. Estradiol testing is performed using a different test methodology at [facility] than other [facility]. Direct result comparison should only be made within the same method.REF VALUESEARLY FOLLICULAR 22-115MID FOLLICULAR 25-115OVULATORY PEAK 32-517MID LUTEAL 37-246POSTMENOPAUSE <15- 25MALE <15- 32 Estradiol, Serumon 0 E2 [Mass/Vol] 36 pg/mL MG-OBGYN-Ri s man 310 IVF Work Phone: Comment on above: Estradiol measuremen t is performed using the [employer] Access Sensitive Estradiol Immunoassay. Estradiol testing is performed using a different test methodology at [facility] than other [facility]. Direct result comparison should only be made within the same method.REF VALUESEARLY FOLLICULAR 22-115MID FOLLICULAR 25-115OVULATORY PEAK 32-517MID LUTEAL 37-246POSTMENOPAUSE <15- 25MALE <15- 32 [facility]ology Department Name JESSICA VALDEZ Pathologist: KAYLEIGH MOLINA MD Date of Procedure: 11/14/2019 Date Received: 11/14/2019 Date Reported 11/15/2019 Submitting Physician: SHAILA CONLEY MD Location: [facility] External # FINAL DIAGNOSIS A. LEFT PELVIC SIDEWALL: -- FRAGMENT OF FIBROADIPOSE AND FIBROCONNECTIVE TISSUE WITH FOCAL FEATURES SUGGESTIVE OF ENDOMETRIOSIS. B. LEFT PELVIC SIDEWALL: -- FRAGMENTS OF FIBROADIPOSE AND FIBROCONNECTIVE TISSUE WITH NO SIGNIFICANT PATHOLOGICAL FINDINGS. Electronically Signed Out By KAYLEIGH MOLINA MD/RFA By the signature on this report, the [...] specimen is entirely submitted in one cassette. KLS B. Received in formalin, labeled with the patient's name, hospital number, and B. Left pelvic sidewall , is a pink charlton, irregular, soft tissue segment, measuring approximately 0.9 x 0.6 x 0.3 cm. The specimen is entirely submitted in one cassette. SHERI kls/11/14/2019 [facility] Department of Pathology [address] [place] [address] Normal [facility] Comment on above: Performed By: #### A #### [facility] Surgical Pathology Department [address] [address] History and Physical - Surge ry > [...] the note. I personally evaluated the patient [id number] Attending Provider Inpatient Certification StatementObservation patient/other outpatient visits Electronic Signatures: Shaila Fink (Fellow)) (Signed 13-Nov-2019 18:39) Authored: History of Present Illness, Home Medication Review, Impression/Procedure, Physical Exam, Consent, Signatures/Attestation Shaila Conley) (Signed 16-Nov-2019 09:55) Authored: Signatures/Attestation Co-Signer: History of Present Illness, Home Medication Review, Impression/Procedure, Physical Exam, Consent, Signatures/Attestation Last Updated: 16-Nov-2019 09:55 by Shaila Conley) [facility] Patient Profile - Preop v2on 11-14-2019 Patient Profile - Preop v2 Profile: Initial Info: How to be AddressedCortney Spoken Language PreferredEnglish Are you currently using the Personal Electronic Health Record or [place] Stated Reason for Admissionlaparoscopic removal of nendometriosis Primary Contact Name and NumberRob [phone] Patient Belongingssee checklist Medications Brought to Hospitalno General Health: Weight in kg91 kilogram(s) Weight in jdh862.6 pound(s) Weight Methodactual (measured) Scale Typestanding Height in feet5 feet Height in [id number] inch(es) Height in cm177.8 centimeter(s) Height Methodstated [...] instruction; written material Cultural Considerationsnone Developmental Considerationsnone Jew Considerationsnone Other learner availableno Falls RiskPatient location auto qualifies him/her for HIGH RISK. Are there any cultural, spiritual, restorationism practices/values/needs that are important for us to [...] Surgery > 30 days 14-Nov-2019 00:00 Normal [facility] Preop Checkliston 0 Preop Checklist Preop Checklist: Preop Checklist: Arrival [id number] Arrival Time09:50 Procedure Typelaparoscopic excision of endometriosis, chromopertubation, diagnostic hysteroscopy NPO [id number] 21:00 ID Band Onyes Allergy Bandyes Consent Signedpending H&P Completepending Anesthesia Assessment Completedpending EKG Performednot ordered Chest X-Ray Performednot ordered HCG Urine TestComplete Chlorhexadine Bath Givennot applicable Nasal Antiseptic Appliednot applicable Hair Washedyes Soap and water bath with hair shampoo the night before surgeryyes Hat placed on prior to transportnot applicable SCD's Appliedsent to [...] 14-Nov-2019 10:02 by Bakari Ashby (LEE) Normal [facility] Vital Signs Date Time Vital Sign Value Performing Clinician Facility 06-05-2024 07:44-0400 Body height 177.8 cm Bakari Escalera DO Work Phone: [facility] 06-05-2024 07:44-0400 Body weight 95.25 kg Bakari Escalera DO Work Phone: [facility] 05-09-2024 14:31-0400 Diastolic blood pressure 78 mm[Hg] Neha 1 [facility] 05-09-2024 14:31-0400 Heart rate 83 /min Neha 1 [facility] 05-09-2024 14:31-0400 Systolic blood pressure 128 mm[Hg] Neha 1 [facility] 05-07-2024 15:28-0400 Body height 177.8 cm [facility] 05-07-2024 15:28-0400 Body mass index (BMI) [Ratio] 32.8 kg/m2 [facility] 05-07-2024 15:28-0400 Body temperature 98.3 [degF] [facility] 05-07-2024 15:28-0400 Body weight 103.87 kg [facility] 05-07-2024 15:28-0400 Diastolic blood pressure 74 mm[Hg] [facility] 05-07-2024 15:28-0400 Heart rate 100 /min [facility] 05-07-2024 15:28-0400 SaO2% (BldA) [Mass fraction] 99 % [facility] 05-07-2024 15:28-0400 Systolic blood pressure 118 mm[Hg] [facility] 04-13-2024 15:29-0500 Body temperature 97.5 [degF] Inga Amrit NURSE CONSULTANT Work Phone: [facility] 04-13-2024 15:29-0500 Diastolic blood pressure 78 mm[Hg] Inga Josue NURSE CONSULTANT Work Phone: [facility] 04-13-2024 15:29-0500 Heart rate 104 /min Inga Josue NURSE CONSULTANT Work Phone: [facility] 04-13-2024 15:29-0500 SaO2% (BldA) [Mass fraction] 100 % Inga Josue NURSE CONSULTANT Work Phone: [facility] 04-13-2024 15:29-0500 Systolic blood pressure 142 mm[Hg] Inga Josue NURSE CONSULTANT Work Phone: [facility] 04-05-2024 13:43-0500 Body height 177.8 cm [facility] 04-05-2024 13:43-0500 Body mass index (BMI) [Ratio] 32.4 kg/m2 [facility] 04-05-2024 13:43-0500 Body temperature 98.1 [degF] [facility] 04-05-2024 13:43-0500 Body weight 102.51 kg [facility] 04-05-2024 13:43-0500 Diastolic blood pressure 78 mm[Hg] [facility] 04-05-2024 13:43-0500 Heart rate 100 /min [facility] 04-05-2024 13:43-0500 Respiratory rate 18 /min [facility] 04-05-2024 13:43-0500 SaO2% (BldA) [Mass fraction] 98 % [facility] 04-05-2024 13:43-0500 Systolic blood pressure 123 mm[Hg] [facility] 02-02-2024 15:38-0500 Body mass index (BMI) [Ratio] 34.69 kg/m2 Inga Josue NURSE CONSULTANT Work Phone: [facility] 02-02-2024 15:38-0500 Body temperature 97.7 [degF] Inga Josue NURSE CONSULTANT Work Phone: [facility] 02-02-2024 15:38-0500 Body weight 101.97 kg Inga Josue NURSE CONSULTANT Work Phone: [facility] 02-02-2024 15:38-0500 Diastolic blood pressure 80 mm[Hg] Inga Josue NURSE CONSULTANT Work Phone: [facility] 02-02-2024 15:38-0500 Heart rate 89 /min Inga Josue NURSE CONSULTANT Work Phone: [facility] 02-02-2024 15:38-0500 SaO2% (BldA) [Mass fraction] 99 % Inga Josue NURSE CONSULTANT Work Phone: [facility] 02-02-2024 15:38-0500 Systolic blood pressure 122 mm[Hg] Inga Josue NURSE CONSULTANT Work Phone: [facility] 12-30-2023 14:54-0500 Diastolic blood pressure 65 mm[Hg] Ariel Calderon MD Work Phone: [facility] 12-30-2023 14:54-0500 Systolic blood pressure 110 mm[Hg] Ariel Calderon MD Work Phone: [facility] 12-30-2023 14:35-0500 Body height 175.3 cm Ariel Calderon MD Work Phone: [facility] 12-30-2023 14:35-0500 Body mass index (BMI) [Ratio] 32.52 kg/m2 Ariel Calderon MD Work Phone: [facility] 12-30-2023 14:35-0500 Body weight 99.88 kg Ariel Calderon MD Work Phone: [facility] 12-30-2023 14:35-0500 Heart rate 86 /min Ariel Calderon MD Work Phone: [facility] 11-30-2023 15:39-0400 Body mass index (BMI) [Ratio] 34.41 kg/m2 Riddhi Rinkes DO Work Phone: [facility] 11-30-2023 15:39-0400 Body weight 101.15 kg Riddhi Rinkes DO Work Phone: [facility] 11-30-2023 15:39-0400 Diastolic blood pressure 78 mm[Hg] Riddhi Rinkes DO Work Phone: [facility] 11-30-2023 15:39-0400 Systolic blood pressure 124 mm[Hg] Riddhi Rinkes DO Work Phone: [facility] 10-20-2023 15:37-0400 Body height 171.5 cm Riddhi Rinkes DO Work Phone: [facility] 10-20-2023 15:37-0400 Body mass index (BMI) [Ratio] 34.57 kg/m2 Riddhi Rinkes DO Work Phone: [facility] 10-20-2023 15:37-0400 Body weight 101.61 kg Riddhi Rinkes DO Work Phone: [facility] 10-20-2023 15:37-0400 Diastolic blood pressure 80 mm[Hg] Riddhi Rinkes DO Work Phone: [facility] 10-20-2023 15:37-0400 Systolic blood pressure 120 mm[Hg] Riddhi Rinkes DO Work Phone: [facility] 02-08-2023 11:24-0500 Body height 177.8 cm DO Bakari Escalera Work Phone: [facility] 02-08-2023 11:24-0500 Body weight 97.52 kg DO Bakari Escalera Work Phone: [facility] 09-29-2022 09:30-0400 Body height 172.09 cm Bakari Escalera Other [facility] [employer] Other 09-29-2022 09:30-0400 Body mass index (BMI) [Ratio] 32.78 kg/m2 Bakari Escalera Other [employer] Other 09-29-2022 09:30-0400 Body temperature 97.6 [degF] Bakari Escalera Other [facility] Other 09-29-2022 09:30-0400 Body weight 97.07 kg Bakari Escalera Other [facility] Other 09-29-2022 09:30-0400 Diastolic blood pressure 70 mm[Hg] Bakari Escalera Other [facility] Other 09-29-2022 09:30-0400 Respiratory rate 18 /min Bakari Escalera Other [facility] Other 09-29-2022 09:30-0400 SaO2% (BldA) [Mass fraction] 98 % Bakari Escalera Other [facility] Other 09-29-2022 09:30-0400 Systolic blood pressure 98 mm[Hg] Bakari Escalera Other [facility] Other 08-31-2022 11:58-0400 Body height 177.8 cm Bakari Escalera Work Phone: [facility] 600 DO Work Phone: 08-31-2022 11:58-0400 Body mass index (BMI) [Ratio] 30.56 kg/m2 Bakari Escalera Work Phone: [facility] 600 DO Work Phone: 08-31-2022 11:58-0400 Body surface area Derived from formula 2.14 m2 Bakari Escalera Work Phone: [facility] 600 DO Work Phone: 08-31-2022 11:58-0400 Body weight 96.62 kg Bakari Escalera Work Phone: [facility] 600 DO Work Phone: 08-31-2022 11:58-0400 Diastolic blood pressure 60 mm[Hg] Bak[facility]alera [facility] DO Work Phone: 08-31-2022 11:58-0400 Systolic blood pressure 98 mm[Hg] Bakari Escalera Work Phone: [facility] 600 DO Work Phone: 08-31-2022 11:58-0400 Systolic blood pressure 100 mm[Hg] Bakari Escalera [facility] DO Work Phone: 08-31-2022 11:58-0400 78 1 Bakari Escalera [facility]: [facility] DO Work Phone: Comment on above: [employer] 08-31-2022 11:58-0400 80 1 Bakari Escalera [facility]: [facility] DO Work Phone: Comment on above: [employer] 01-27-2022 16:45-0500 Body height 172.09 cm Mayuri David Other [facility] Other 01-27-2022 16:45-0500 Body mass index (BMI) [Ratio] 29.87 kg/m2 Mayuri Joann Other [facility] Other 01-27-2022 16:45-0500 Body temperature 98.9 [degF] Mayuri David Other [facility] Other 01-27-2022 16:45-0500 Body weight 88.45 kg Mayuri David Other [facility] Other 01-27-2022 16:45-0500 Diastolic blood pressure 62 mm[Hg] Mayuri David Other [facility] Other 01-27-2022 16:45-0500 Respiratory rate 18 /min Mayuri David Other [facility] Other 01-27-2022 16:45-0500 SaO2% (BldA) [Mass fraction] 100 % Mayuri David Other [facility] Other 01-27-2022 16:45-0500 Systolic blood pressure 110 mm[Hg] Mayuri David Other [facility] Other 09-16-2021 09:39-0400 Body height 177.8 cm Bakari Escalera Work Phone: [facility] [place] 250 DO Work Phone: 09-16-2021 09:39-0400 Body mass index (BMI) [Ratio] 30.28 kg/m2 Bakari Escalera Work Phone: [facility] 250 DO Work Phone: 09-16-2021 09:39-0400 Body surface area Derived from formula 2.14 m2 Bakari Escalera Work Phone: [facility] 250 DO Work Phone: 09-16-2021 09:39-0400 Body weight 95.71 kg Bakari Escalera Work Phone: [facility] [place] 250 DO Work Phone: 09-16-2021 09:39-0400 Diastolic blood pressure 58 mm[Hg] Bakari Escalrea Work Phone: [facility] [place] 250 DO Work Phone: 09-16-2021 09:39-0400 Heart rate 70 /min Bakari Escalera Work Phone: [facility] [place] 250 DO Work Phone: 09-16-2021 09:39-0400 Systolic blood pressure 102 mm[Hg] Bakari Escalera Work Phone: [facility] [place] 250 DO Work Phone: 06-06-2020 11:50-0400 Body height 177.8 cm Kelsi Harry HAND SCREEN PRINTER-TRANSPORTATION PLANNING ENGINEER DI-COBHS-Ixgavn 310 IVF Work Phone: 06-06-2020 11:50-0400 Body mass index (BMI) [Ratio] 28.7 kg/m2 Kelsi Harry HAND SCREEN PRINTER-TRANSPORTATION PLANNING ENGINEER AY-SWEFJ-Lplysl 310 IVF Work Phone: 06-06-2020 11:50-0400 Body surface area Derived from formula 2.09 m2 Kelsi Harry HAND SCREEN PRINTER-TRANSPORTATION PLANNING ENGINEER IN-KCBKQ-Tqvxjd 310 IVF Work Phone: 06-06-2020 11:50-0400 Body weight 90.72 kg Kelsi Harry HAND SCREEN PRINTER-TRANSPORTATION PLANNING ENGINEER OX-LEKWV-Nhqthh 310 IVF Work Phone: 06-06-2020 11:50-0400 0 1 Kelsi Harry HAND SCREEN PRINTER-TRANSPORTATION PLANNING ENGINEER VF-JVABB-Iynjwf 310 IVF Work Phone: Comment on above: Pain Scale Para 06-06-2020 11:50-0400 1 1 Kelsi Harry HAND SCREEN PRINTER-TRANSPORTATION PLANNING ENGINEER AA-WHBGJ-Uxecnq 310 IVF Work Phone: Comment on above: Encounters Encounter Date Encounter Type Care Provider Facility Start: 07-09-2024 End: 07-09-2024 External Result Encounter Riddhi Villar DO Work Phone: [facility] External Department Unsolicited Start: 07-09-2024 End: 07-09-2024 External Result Encounter Riddhi Villar DO Work Phone: [facility] External Department Unsolicited Start: 07-09-2024 End: 07-09-2024 ambulatory Riddhitanisha Villar Facility:[facility] Start: 07-07-2024 End: 07-07-2024 ambulatory Luna Ashby Abhinav Facility:[facility] Start: 07-06-2024 End: 07-06-2024 flow sheet [facility] Nurse [facility] Start: 07-06-2024 End: 07-06-2024 ambulatory INGA JOSUE Not Available Start: 07-02-2024 End: 07-02-2024 External Result Encounter Riddhi Villar DO Work Phone: [facility] External Department Unsolicited Start: 07-02-2024 End: 07-02-2024 External Result Encounter Riddhi Villar DO Work Phone: [facility] External Department Unsolicited Start: 07-02-2024 End: 07-02-2024 Patient encounter procedure Bakari Escalera DO Work Phone: [facility] [place] Work Phone: Start: 07-02-2024 End: 07-02-2024 ambulatory Bakari Escalera DO Work Phone: [facility] Work Phone: Start: 06-29-2024 End: 06-29-2024 External Result Encounter Riddhi Villar DO Work Phone: [facility] External Department Unsolicited Start: 06-29-2024 End: 06-29-2024 External Result Encounter Riddhi Villar DO Work Phone: [facility] External Department Unsolicited Start: 06-29-2024 End: 06-29-2024 Patient encounter procedure Bakari Escalera DO Work Phone: [facility] [place] Work Phone: Start: 06-29-2024 End: 06-29-2024 ambulatory Bakari Escalera DO Work Phone: [facility] Work Phone: Start: 06-14-2024 End: 06-14-2024 ambulatory RIDDHI VILLAR Not Available Start: 06-06-2024 End: 06-06-2024 Patient encounter procedure Bakari Escalera DO Work Phone: [facility] [place] Work Phone: Start: 06-06-2024 End: 06-06-2024 ambulatory Bakari Escalera DO Work Phone: [facility] Work Phone: Start: 05-09-2024 End: 05-09-2024 Subsequent hospital visit by physician Neha Bernabe Stress Room 1 [facility] Comment on above: Chest pain, unspecif ied type Start: 05-09-2024 End: 05-09-2024 ambulatory [facility] Start: 05-07-2024 End: 05-07-[address] [facility] ed Ringold Work Phone: Start: 05-07-2024 End: 05-07-2024 Patient encounter procedure [facility] [place] Work Phone: Start: 04-18-2024 End: 04-18-2024 ambulatory [facility] Work Phone: Start: 04-18-2024 End: 04-18-2024 Patient encounter procedure [facility] [place] Work Phone: Start: 04-13-2024 End: 04-13-2024 ambulatory INGA JOSUE Not Available Start: 04-13-2024 End: 04-13-2024 Office outpatient visit 15 minutes Inga Josue NURSE CONSULTANT Work Phone: [facility] Comment on above: Other headache syndr ome (Primary Dx); Cough, unspecified type Start: 04-07-2024 Non-patient / Non-visit [facility] Work Phone: Start: 04-05-2024 End: 04-05-2024 ambulatory [facility] Work Phone: Start: 04-05-2024 End: 04-05-2024 Patient encounter procedure [facility] Rajiv Work Phone: Start: 02-24-2024 End: 02-24-2024 Bamboo flowsheet [facility] PA Work Phone: [facility] Start: 02-24-2024 End: 02-24-2024 [facility] Start: 02-24-2024 End: 02-24-2024 Office outpatient new 30 minutes Anjum [facility] Work Phone: [facility] Comment on above: Melanocytic nevus of face, other location (Primary Dx); Melanocytic nevus of trunk; Melanocytic nevus of upper extremity, unspecified laterality; Melanocytic nevus of lower extremity, unspecified laterality; Lentigo simplex; Dermatofibroma; Neoplasm of skin Start: 02-24-2024 End: 02-24-2024 [facility] Start: 02-04-2024 End: 02-04-2024 Telephone encounter Inga Josue NURSE CONSULTANT Work Phone: [facility] Start: 02-02-2024 End: 02-02-2024 ambulatory INGA JOSUE Not Available Start: 02-02-2024 End: 02-02-2024 Office outpatient visit 15 minutes Inga Josue NURSE CONSULTANT Work Phone: [facility] Comment on above: Viral upper respirat ory illness (Primary Dx); Cough, unspecified type Start: 12-30-2023 End: 12-30-2023 Office outpatient visit 15 minutes Ariel Calderon MD Work Phone: [facility] Comment on above: Neurocardiogenic pre -syncope; Hypotension, unspecified hypotension type; BMI 32.0-32.9,adult; Never smoked tobacco Start: 12-30-2023 End: 12-30-2023 ambulatory ARIEL Louise [facility] Start: 12-14-2023 End: 12-14-2023 ambulatory RIDDHI VILLAR Not Available Start: 11-30-2023 End: 11-30-2023 Office outpatient visit 25 minutes Riddhi Villar DO Work Phone: [facility] Comment on above: Menorrhagia with reg ular cycle; Pelvic pain in female; Breast pain, left Start: 11-30-2023 End: 11-30-2023 ambulatory RIDDHI VILLAR Not Available Start: 11-11-2023 End: 11-11-2023 ambulatory INGA JOSUE Not Available Start: 10-28-2023 End: 10-28-2023 Patient encounter procedure DO Bakari Escalera Work Phone: [facility] [place] Work Phone: Start: 10-28-2023 End: 10-28-2023 ambulatory DO Bakari Escalera Work Phone: [facility] Work Phone: Start: 10-28-2023 Encounter for genera l adult medical examination without abnormal findings Bakari Escalera [facility] [facility] Start: 10-20-2023 End: 10-20-2023 ambulatory RIDDHI VILLAR Not Available Start: 10-20-2023 End: 10-20-2023 Patient encounter status Riddhi Villar DO Work Phone: [facility] Work Phone: Start: 10-20-2023 End: 10-20-2023 Periodic preventive med est patient 18-39 yrs Riddhi Villar DO Work Phone: [facility] Comment on above: Encounter for gyneco logical examination without abnormal finding (Primary Dx); Screening for malignant neoplasm of cervix; Dysuria; Menorrhagia with regular cycle; Pelvic pain in female Start: 10-20-2023 End: 10-20-2023 Bamboo flowsheet Riddhi Villar DO Work Phone: [facility] Start: 10-20-2023 End: 10-20-2023 Bamboo flowsheet Riddhi Villar DO Work Phone: [facility] Start: 07-06-2023 End: 07-06-2023 ambulatory [facility] Start: 07-06-2023 End: 07-06-2023 Office outpatient visit 15 minutes [facility] HAND SCREEN PRINTER-TRANSPORTATION PLANNING ENGINEER Work Phone: [facility] Comment on above: Anxiety and depressi on Start: 05-04-2023 End: 05-04-2023 ambulatory [facility] Start: 05-04-2023 End: 05-04-2023 Office outpatient visit 15 minutes [facility] HAND SCREEN PRINTER-TRANSPORTATION PLANNING ENGINEER Work Phone: [facility] Comment on above: ADEN (generalized anx iety disorder); Anxiety and depression Start: 03-17-2023 End: 03-17-2023 ambulatory Bakari Escalera Other [facility] Other Start: 03-17-2023 Telephone encounter Bakari Escalera [facility] Start: 02-08-2023 End: 02-08-2023 ambulatory DO Bakari Escalera Work Phone: [facility] Work Phone: Start: 02-08-2023 End: 02-08-2023 Patient encounter procedure DO Bakari Escalera Work Phone: [facility] Main [place] Work Phone: Start: 02-01-2023 End: 02-01-2023 ambulatory DO Bakari Escalera Work Phone: [facility] Work Phone: Start: 02-01-2023 End: 02-01-2023 Patient encounter procedure DO Bakari Escalera Work Phone: [facility] Main [place] Work Phone: Start: 01-19-2023 End: 01-19-2023 ambulatory [facility] Start: 01-19-2023 End: 01-19-2023 Office outpatient visit 10 minutes Marvin Haque HAND SCREEN PRINTER-TRANSPORTATION PLANNING ENGINEER Work Phone: [facility] Comment on above: Anxiety and depressi on Start: 12-27-2022 End: 12-27-2022 ambulatory Bakari Escalera Other [facility] Other Start: 12-27-2022 Encounter by computer link Bakari wood [facility] [place] Start: 12-14-2022 End: 12-14-2022 Office outpatient visit 15 minutes Marvin Haque HAND SCREEN PRINTER-TRANSPORTATION PLANNING ENGINEER Work Phone: [facility] Comment on above: Moderate episode of recurrent major depressive disorder (CMS/HCC); ADEN (generalized anxiety disorder) Start: 12-14-2022 End: 12-14-2022 ambulatory MARVIN Solo [facility] Start: 11-19-2022 End: 11-19-2022 ambulatory Lawrence Su Other [facility] Other Start: 11-19-2022 Telephone encounter Lawrence BAEZA Chief Marketing Officer Start: 10-14-2022 Office outpatient vi sit 25 minutes Bakari Escalera Work Phone: [facility] 1200 DO Work Phone: Start: 10-05-2022 End: 10-05-2022 ambulatory DO Bakari Escalera Work Phone: [facility] Work Phone: Start: 10-05-2022 End: 10-05-2022 Patient encounter procedure DO Bakari Escalera Work Phone: [facility] [place] Work Phone: Start: 09-29-2022 End: 09-29-2022 ambulatory Bakari Escalera Other [facility] [employer] Other Start: 09-29-2022 Encounter for genera l adult medical examination without abnormal findings Bakari Escalera [facility] [place] Start: 09-29-2022 Periodic preventive med est patient 18-39 yrs Bakari Escalera [facility] [place] Start: 09-28-2022 Rx Renewal Bakari Escalera Work Phone: VG-Iilfrezmes-Feyxybn 1200 DO Work Phone: Start: 08-31-2022 Office outpatient vi sit 10 minutes Bakari Escalera Work Phone: [facility] 600 DO Work Phone: Start: 08-10-2022 Office outpatient vi sit 15 minutes Bakari Escalera Work Phone: VI-Uvgunghjtw-Lyotwjq 1200 DO Work Phone: Start: 06-22-2022 End: 06-22-[address] KACY PRYOR Facility: Start: 05-25-2022 Office outpatient vi sit 15 minutes Bakari Escalera Work Phone: BP-Ggtxhzvemq-Eoqvkki 1200 DO Work Phone: Start: 03-18-2022 AUDIT Bakari Escalera Work Phone: SV-Cybtcbhjuo-Tvrlxhg 1200 DO Work Phone: Start: 03-03-2022 Office outpatient vi sit 15 minutes Bakari Escalera Work Phone: SP-Orhkhcfasq-Jpngtrj 1200 DO Work Phone: Start: 01-27-2022 End: 01-27-2022 ambulatory Mayuri Joann Other [facility] Other Start: 01-27-2022 Office outpatient vi sit 15 minutes Mayuri David [facility] Start: 01-26-2022 Office outpatient vi sit 25 minutes Bakari Escalera Work Phone: GJ-Cohxqhgolu-Vlpijba 1200 DO Work Phone: Start: 01-04-2022 End: 01-04-2022 ambulatory Bakari Escalera Other [facility] Other Start: 01-04-2022 Telephone encounter Bakari Escalera [facility] [place] Start: 12-21-2021 End: 12-21-2021 ambulatory Bakari Escalera Other [facility] Other Start: 12-21-2021 Telephone encounter Bakari Escalera [facility] [place] Start: 09-25-2021 End: 09-25-2021 Patient encounter procedure DO Bakari Escalera Work Phone: [facility] Start: 09-18-2021 End: 09-18-2021 ambulatory Bakari Escalera Other [facility] Other Start: 09-18-2021 Telephone encounter Bakari Escalera [facility] [place] Start: 09-16-2021 ambulatory Ariel Calderon Facility : Start: 09-16-2021 AUDIT Bakari Escalera Work Phone: [facility] 250 DO Work Phone: Start: 08-04-2021 Office outpatient vi sit 25 minutes Bakari Escalera Work Phone: UU-Vlaqatznwq-Gldmy [place] 201B DO Work Phone: Start: 07-23-2021 End: 07-24-2021 ambulatory VIC ALAINA . Facility: Start: 06-30-2021 Office outpatient vi sit 25 minutes Bakari Escalera DE-Hqqlqptpun-Ndstx [place] 201B DO Work Phone: Start: 06-18-2021 Office outpatient vi sit 15 minutes Bakari Escalera XT-Mrikahvjnk-Opjig [place] 201B DO Work Phone: Start: 04-23-2021 Office outpatient vi sit 15 minutes Bakari Escalera NN-Oinfflldpn-Ahkqe [place] 201B DO Work Phone: Start: 03-05-2021 Office outpatient vi sit 15 minutes Bakari Escalera BJ-Kwducauweo-Wxcco [place] 201B DO Work Phone: Start: 01-22-2021 Office outpatient vi sit 25 minutes Bakari Escalera BL-Geatyddtcr-Fqkva [place] 201B DO Work Phone: Start: 10-31-2020 Patient encounter procedure Bakari Thomas Nilay NG-VNHIR-Rgkmwwv 206A IVF Work Phone: Start: 10-31-2020 ULTRASOUND, Provider : OBGYN IVF RDFL CASSIDY 1,MG OBGYN, Status: Pen, Time: 10:30 AM Bakari Escalera YK-Pffaqdxrsr-Ewybf [place] 201B DO Work Phone: Start: 10-30-2020 Office outpatient vi sit 15 minutes Bakari Thomas Griceldanina VF-Uataqktoov-Qcspr [place] 201B DO Work Phone: Start: 10-30-2020 VIRFUVHOME, Provider : Marvin Haque, Status: Pen, Time: 3:30 PM Bakari Escalera AZ-CIAWI-Rfkoxq 310 IVF Work Phone: Start: 10-28-2020 Telephone encounter Bakari Louise H-CRPPH-Zkouda 310 IVF Work Phone: Start: 10-16-2020 AUDIT Bakari Escalera MG-OBGYN -Risman 310 IVF Work Phone: Start: 09-11-2020 Office outpatient vi sit 15 minutes Bakari C Girvin RA-Hqytvibsdl-Gktpo [place] 201B DO Work Phone: Start: 09-02-2020 ULTRALAB, Provider: OBGYIrvin BENJAMIN 1,MG OBGYN, Status: Pen, Time: 8:00 AM Bakari Madisonvin DA-VTFFH-Eyxvob 310 IVF Work Phone: Start: 09-01-2020 Chart Update Bakari Thomas Girvin MG-OBGYN -Risman 310 IVF Work Phone: Start: 08-29-2020 Patient encounter procedure Bakari Thomas Girvin LB-HXSUJ-Ivijes 310 IVF Work Phone: Start: 08-13-2020 Patient encounter procedure Bakari Thomas Girvin QD-URNFW-Fasoye 310 IVF Work Phone: Start: 08-12-2020 Patient encounter procedure Bakari Escalera NU-Bpofmsowtu-Nsuey [place] 201B DO Work Phone: Start: 07-30-2020 AUDIT Bakari Thomas Girvin MG-OBGYN -Risman 310 IVF Work Phone: Start: 07-14-2020 Patient encounter procedure Bakari Madisonvin YX-LTAGS-Udhdgb 310 IVF Work Phone: Start: 04-10-2020 Patient encounter procedure Kelsi Harry HAND SCREEN PRINTER-TRANSPORTATION PLANNING ENGINEER CX-DCVGT-Frqemt 310 IVF Work Phone: Start: 04-07-2020 Patient encounter procedure Kelsi Harry HAND SCREEN PRINTER-TRANSPORTATION PLANNING ENGINEER FR-VHXNC-Nmsxtu 310 IVF Work Phone: Start: 04-04-2020 Patient encounter procedure Kelsi Harry HAND SCREEN PRINTER-TRANSPORTATION PLANNING ENGINEER FO-XUTJO-Ioctbe 310 IVF Work Phone: Start: 04-01-2020 Patient encounter procedure Kelsi Harry HAND SCREEN PRINTER-TRANSPORTATION PLANNING ENGINEER UZ-QPVDP-Hiiifi 310 IVF Work Phone: Start: 02-14-2020 Patient encounter procedure Kelsi Harry HAND SCREEN PRINTER-TRANSPORTATION PLANNING ENGINEER DM-QGIJW-Aouvjq 310 IVF Work Phone: Start: 01-28-2020 Patient encounter procedure Kelsi Harry APRN-TRANSPORTATION PLANNING ENGINEER HJ-FLZES-Slkovh 310 IVF Work Phone: Start: 01-26-2020 Patient encounter procedure Kelsi Harry TO-VVUXG-Vdumtn 310 IVF Work Phone: Start: 01-24-2020 Patient encounter procedure Kelsi Harry QE-KIEGW-Ghgrcv 310 IVF Work Phone: Start: 01-21-2020 Patient encounter procedure Kelsi Harry TR-XLJWX-Qphkqd 310 IVF Work Phone: Start: 12-31-2019 Patient encounter procedure Kelsi Harry JJ-APZWZ-Pdjese 310 IVF Work Phone: Start: 12-27-2019 Patient encounter procedure Kelsi Harry SI-GKMOT-Cbyepl 310 IVF Work Phone: Start: 11-30-2019 Patient encounter procedure Kelsi Harry ZQ-GRIBN-Jjnten 310 IVF Work Phone: Start: 08-28-2019 Patient encounter procedure Kelsi LOCKWOOD-OBGYN-Risman 310 IVF Work Phone: Procedures Date Procedure Procedure Detail Performing Clinician Start: 07-09-2024 Gonadotropin chorion ic quantitative Riddhi E Maureenkes DO Work Phone: Start: 07-02-2024 Gonadotropin chorion ic quantitative Riddhi E Rinkes DO Work Phone: Start: 06-29-2024 Gonadotropin chorion ic quantitative Riddhi E Rinkes DO Work Phone: Start: 06-06-2024 MRI of head Bakari Girv in DO Work Phone: Start: 04-13-2024 Infectious agent dna /rna influenza 1st 2 types Claudio Banegas DO Work Phone: Start: 04-05-2024 Quick Strep (POC) Start: 02-02-2024 PNEUMONIA (HTRX) Radha Josue NURSE CONSULTANT Work Phone: Start: 02-02-2024 STATUS COVID-19/FLU Ant elpidio Banegas DO Work Phone: Start: 02-02-2024 H/O: section S/P Inga Josue NURSE CONSULTANT Work Phone: Start: 10-20-2023 Urnls dip stick/tabl et rgnt non-auto w/o micrscp Riddhi Villar DO Work Phone: Start: 02-08-2023 MRI of cervical spin e with contrast DO Bakari Escalera Work Phone: Start: 02-01-2023 MRI of head DO Bakari manzano Work Phone: Start: 01-24-2020 IO Ultrasound, limit ed pelvic, follicle monitoring Kelsi Harry Start: 12-27-2019 Assay of estradiol Teddy Harry Start: 12-27-2019 IO Ultrasound, limit ed pelvic, follicle monitoring Kelsi Harry section Bakari wood Work Phone: H/O: section S/P DO Da vid Nilay Work Phone: Myringotomy and inse rtion of T tube Bakari Escalera Work Phone: Tonsillectomy and adenoidectomy Bakari Escalera Work Phone: Total colonoscopy Bakari knight Work Phone: Plan of Treatment Date Care Activity Detail Author Start: 2041 Zoster Vaccines (1 o f 2) Zoster Vaccines (1 of 2) [facility] Start: 05-20-2031 DTaP/Tdap/Td Vaccine s (2 - Td or Tdap) DTaP/Tdap/Td Vaccines (2 - Td or Tdap) [facility] Start: 02-25-2025 End: 02-25-2025 Patient encounter procedure 02/25/2025 3:20 PM EST Office Visit [facility] [address] [place] [address] Anjum Sanchez PA [address] [place] [address] [facility] Start: 01-02-2025 End: 01-02-2025 Patient encounter procedure 01/02/2025 3:50 PM EST Office Visit [facility] [address] [place] [address] Ariel Calderon MD [address] [place] [address] [facility] Start: 10-31-2024 End: 10-31-2024 Patient encounter procedure 10/31/2024 3:45 PM EDT Office Visit [facility] [address] [place] [address] Riddhi Villar, DO [address] [place] [address] [facility] Start: 08-14-2024 End: 08-14-2024 ambulatory 08/14/2024 1:00 PM EDT Initial [facility] [address] [place] [address] Riddhi Villar, DO [address] [place] [address] [facility] Start: 08-09-2024 End: 08-09-2024 Professional / ancillary services management 08/09/2024 8:30 AM EDT Ancillary Procedure [facility] [address] [place] [address] [facility] Start: 08-07-2024 End: 08-07-2024 Professional / ancillary services management 08/07/2024 12:30 PM EDT Ancillary Procedure [facility] [place] [address] [place] [phone] [facility] [place] Start: 07-06-2024 End: 07-06-2025 Bacteria identified in Urine by Culture Urine culture Microbiology Routine care, subsequent in first trimester Expected: 07/06/2024, Expires: 07/06/2025 [facility] Work Phone: Comment on above: Expected: 07/06/2024 , Expires: 07/06/2025 Start: 07-06-2024 End: 07-06-2025 Blood type and Indirect antibody screen panel - Blood Type and screen Lab Routine care, subsequent in first trimester Expected: 07/06/2024, Expires: 07/06/2025 [facility] Comment on above: Expected: 07/06/2024 , Expires: 07/06/2025 Start: 07-06-2024 End: 07-06-2025 CBC W Auto Differential panel - Blood CBC and differential Lab Routine care, subsequent in first trimester Expected: 07/06/2024, Expires: 07/06/2025 [facility] Comment on above: Expected: 07/06/2024 , Expires: 07/06/2025 Start: 07-06-2024 End: 07-06-2025 DRUG SCREEN 17 W/CONF, UR DRUG SCREEN 17 W/CONF, UR Lab Routine Encounter for drug screening Expected: 07/06/2024, Expires: 07/06/2025 [facility] Comment on above: Expected: 07/06/2024 , Expires: 07/06/2025 Start: 07-06-2024 End: 07-06-2025 hCG, quantitative, hCG, quantitative, Lab Routine care, subsequent in first trimester Expected: 07/06/2024 (Approximate), Expires: 07/06/2025 [facility] Comment on above: Expected: 07/06/2024 (Approximate), Expires: 07/06/2025 Start: 07-06-2024 End: 07-06-2025 Hepatitis B virus surface Ag [Presence] in Serum or Plasma by Immunoassay Hepatitis B surface antigen Lab Routine care, subsequent in first trimester Expected: 07/06/2024, Expires: 07/06/2025 [facility] Comment on above: Expected: 07/06/2024 , Expires: 07/06/2025 Start: 07-06-2024 End: 07-06-2025 Hepatitis C virus Ab [Presence] in Serum or Plasma by Immunoassay Hepatitis C antibody Lab Routine care, subsequent in first trimester Expected: 07/06/2024, Expires: 07/06/2025 [facility] Comment on above: Expected: 07/06/2024 , Expires: 07/06/2025 Start: 07-06-2024 End: 07-06-2025 HIV-2 antigen assay HIV-2 antigen Lab Routine care, subsequent in first trimester Expected: 07/06/2024, Expires: 07/06/2025 [facility] Comment on above: Expected: 07/06/2024 , Expires: 07/06/2025 Start: 07-06-2024 End: 07-06-2025 Rpr (dx) w/refl titer and confirmatory testing Rpr (dx) w/refl titer and confirmatory testing Lab Routine care, subsequent in first trimester Expected: 07/06/2024, Expires: 07/06/2025 [facility] Comment on above: Expected: 07/06/2024 , Expires: 07/06/2025 Start: 07-06-2024 End: 07-06-2025 Rubella antibody, IgG Rubella antibody, IgG Lab Routine care, subsequent in first trimester Expected: 07/06/2024, Expires: 07/06/2025 [facility] Comment on above: Expected: 07/06/2024 , Expires: 07/06/2025 Start: 07-06-2024 End: 07-06-2025 Urinalysis complete panel - Urine Urinalysis with microscopic Lab Routine care, subsequent in first trimester Expected: 07/06/2024, Expires: 07/06/2025 [facility] Comment on above: Expected: 07/06/2024 , Expires: 07/06/2025 Start: 02-24-2024 End: 02-24-2024 Patient encounter procedure 02/24/2024 1:00 PM EST Office Visit [facility] [address] [place] [address] Anjum Sanchez PA [address] [place] [address] [facility] Comment on above: Arrived Start: 11-30-2023 End: 11-30-2023 Patient encounter procedure 11/30/2023 3:30 PM EDT Office Visit [facility] [address] [place] [phone] Riddhi Villar DO [address] [place] [address] [facility] Start: 11-30-2023 End: 11-30-2023 Patient encounter procedure 11/30/2023 9:20 AM EDT Office Visit [facility] [address] [facility] [address] [place] [phone] Ariel Calderon MD [address] [facility] [address] [place] [address] [facility] Start: 11-11-2023 End: 11-11-2023 Professional / ancillary services management 11/11/2023 8:00 AM EDT Ancillary Procedure [facility] [address] [place] [phone] [facility] Start: 10-23-2023 COVID-19 Vaccine ( season) COVID-19 Vaccine ( season) [facility] Start: 10-23-2023 Influenza vaccination [facility] Start: 07-06-2023 End: 07-06-2023 Telemedicine consultation with patient 07/06/2023 3:30 PM EDT Telemedicine [facility] [address] [place] [address] Marvin Haque, HAND SCREEN PRINTER-TRANSPORTATION PLANNING ENGINEER [address] [address] Chapin [place] [address] [facility] Start: 05-26-2023 End: 05-26-2023 Patient encounter procedure 05/26/2023 8:40 AM EDT Office Visit [address] [place] [address] Ariel Calderon MD [address] [facility] [address] [place] [address] [facility] Start: 03-03-2023 FUV, Provider: Ariel Calderon, Status: Pen, Time: 11:50 AM FUV, Provider: Ariel Calderon, Status: Pen, Time: 11:50 AM -[facility] 600 DO Work Phone: Start: 03-03-2023 End: 03-03-2023 Patient encounter procedure 03/03/2023 11:50 AM EST Office Visit [facility] [address] [facility] [address] [place] [phone] rAiel Calderon MD [address] [facility] [address] [place] [address] [facility] Start: 01-12-2023 End: 01-12-2023 Telemedicine consultation with patient 01/12/2023 3:30 PM EST Telemedicine [facility] [address] [place] [phone] Marvin Haque, HAND SCREEN PRINTER-TRANSPORTATION PLANNING ENGINEER [address] [address] [place] [address] [facility] [place] Start: 10-22-2022 Influenza vaccination Influenza Vacc ine (#1) [facility] Start: 10-14-2022 VIRFUSELENA, Provider : Marvin Haque, Status: Pen, Time: 8:00 AM VIRFUVRASHEEDE, Provider: Marvin Haque, Status: Pen, Time: 8:00 AM VM-Elmqumdnyi-Yvvka ll 1200 DO Work Phone: Start: 09-28-2022 VIRFUVSHIRA, Provider : Marvin Haque, Status: Pen, Time: 9:00 AM VIRFUVRASHEEDE, Provider: Marvin Haque, Status: Pen, Time: 9:00 AM [facility] 600 DO Work Phone: Start: 09-14-2022 FUV, Provider: Ariel Calderon, Status: Pen, Time: 10:00 AM FUV, Provider: Ariel Calderon, Status: Pen, Time: 10:00 [facility] Work Phone: Start: 05-25-2022 VIRFUVHOME, Provider : Marvin Haque, Status: Pen, Time: 2:30 PM VIRFUVHOME, Provider: Marvin Haque, Status: Pen, Time: 2:30 PM TG-Qenoytzlhi-Xcknn ll 1200 DO Work Phone: Start: 09-22-2021 VIRFUVHOME, Provider : Marvin Haque, Status: Pen, Time: 10:00 AM VIRFUVHOME, Provider: Marvin Haque, Status: Pen, Time: 10:00 AM [facility] 250 DO Work Phone: Start: 09-16-2021 FUV, Provider: Ariel Calderon, Status: Pen, Time: 9:30 AM FUV, Provider: Ariel Calderon, Status: Pen, Time: 9:30 AM OS-Ixwhsgqoxh-[place]mi [place] 201B DO Work Phone: Start: 12-04-2020 VIRFUVHOME, Provider : Marvin Haque, Status: Pen, Time: 3:30 PM VIRFUVHOME, Provider: Marvin Haque, Status: Pen, Time: 3:30 PM IO-CQYLG-Mswixwh 206A IVF Work Phone: Start: 11-07-2020 ULTRASOUND, Provider : OBGYN IVF RDMS CASSIDY 1,MG OBGYN, Status: Pen, Time: 9:00 AM ULTRASOUND, Provider: OBGYN IVF RDMS CASSIDY 1,MG OBGYN, Status: Pen, Time: 9:00 AM EQ-WUTNB-Yhmxfp 310 IVF Work Phone: Start: 10-30-2020 VIRFUVHOME, Provider : Marvin Haque, Status: Pen, Time: 3:30 PM VIRFUVHOME, Provider: Marvin Haque, Status: Pen, Time: 3:30 PM PX-GZSCL-Mqwvsb 310 IVF Work Phone: Start: 09-11-2020 VIRFUVHOME, Provider : Marvin Haque, Status: Pen, Time: 2:30 PM VIRFUVHOME, Provider: Marvin Haque, Status: Pen, Time: 2:30 PM ET-Uaaehxfifr-Cwjjd [place] 201B DO Work Phone: Start: 08-27-2020 RNVISIT, Provider: Dustin VF NURSE ADAN BENJAMINOB, Status: Pen, Time: 9:30 AM RNVISIT, Provider: IVF NURSE ADAN BENJAMINOB, Status: Pen, Time: 9:30 AM SI-QUYLV-Cevfub 310 IVF Work Phone: Start: 08-13-2020 RNVISIT, Provider: I VF NURSE CASSIDYIFOB, Status: Pen, Time: 8:00 AM RNVISIT, Provider: IVF NURSE JUSTIN BENJAMIN, Status: Pen, Time: 8:00 AM YQ-IEHET-Fshddy 310 IVF Work Phone: Start: 08-12-2020 VIRNPVRASHEEDE, Provider : Marvin Haque, Status: Pen, Time: 10:30 AM VIRNPVHOME, Provider: Marvin Haque, Status: Pen, Time: 10:30 AM ZD-EKMIP-Hlrgxb 310 IVF Work Phone: Start: 06-09-2020 Assay of progesterone Progesterone, Serum JI-RIFTW-Oedsxx 310 IVF Work Phone: Start: 06-06-2020 25 hydroxy includes fractions if performed Vitamin D 25-Hydroxy TH-JYKZV-Bfgypv 310 IVF Work Phone: Start: 06-06-2020 Anti Mullerian Hormone Anti Mulleria n Hormone LF-JEHRY-Dcxchf 310 IVF Work Phone: Start: 06-06-2020 Antibody hiv-1 HIV 1/2 ANTIGEN/ANTIBODY SCREEN WITH REFLEX TO CONFIRMATION FT-DTLDO-Vqxido 310 IVF Work Phone: Start: 06-06-2020 Antibody rubella Rubella IgG Antibod y KJ-QUVEQ-Vuoxtm 310 IVF Work Phone: Start: 06-06-2020 Antibody varicella-zoster Varicella Zoster IgG Antibody QH-MNMOP-Mfcxoc 310 IVF Work Phone: Start: 06-06-2020 Assay of estradiol Estradiol, Serum IC-MAWNQ-Quyxbf 310 IVF Work Phone: Start: 06-06-2020 Assay of ferritin Ferritin, Serum MG -OBSAKSHIN-Janettman 310 IVF Work Phone: Start: 06-06-2020 Assay of iron Iron, Serum MG-OBSAKSHIN- Janettman 310 IVF Work Phone: Start: 06-06-2020 Assay of progesterone Progesterone, Serum AN-YGQBW-Fhqgdd 310 IVF Work Phone: Start: 06-06-2020 Cyanocobalamin vitam in b-12 Vitamin B12, Serum BR-NPTFV-Rmjnjk 310 IVF Work Phone: Start: 06-06-2020 Gonadotropin follicl e stimulating hormone Follicle Stimulating Hormone, Serum UE-SWAOC-Jqnbnb 310 IVF Work Phone: Start: 06-06-2020 Gonadotropin luteinizing hormone Luteinizing Hormone, Serum YY-QCQOZ-Wigeuy 310 IVF Work Phone: Start: 06-06-2020 Hep C screen high risk/other Hepatitis C Antibody Test UY-OIRFI-Zjauuh 310 IVF Work Phone: Start: 06-06-2020 Iaad ia hepatitis b surface antigen Hepatitis B Surface Antigen SS-HNNHG-Jgqxco 310 IVF Work Phone: Start: 06-06-2020 Iadna chlamydia trachomatis amplified probe tq GC + Chlamydia By Amplified Detection FN-GJAUV-Efgeoc 310 IVF Work Phone: Start: 06-06-2020 SYPHILIS SCREENING W ITH REFLEX SYPHILIS SCREENING WITH REFLEX SK-PHGWS-Bfdtyn 310 IVF Work Phone: Start: 06-06-2020 TSH WITH REFLEX TO F REE T4 IF ABNORMAL TSH WITH REFLEX TO FREE T4 IF ABNORMAL WQ-UBYQM-Xnybuk 310 IVF Work Phone: Start: 06-06-2020 Type and Screen Type and Screen MG-O BGYN-Risman 310 IVF Work Phone: Start: 2012 Screening for malign ant neoplasm of cervix [facility] Start: 2010 Hepatitis B Vaccines (1 of 3 - 19+ 3-dose series) Hepatitis B Vaccines (1 of 3 - 19+ 3-dose series) [facility] Start: 2009 Diabetes mellitus screening Diabetes Screening [facility] Start: 2009 Hepatitis C screening Hepatitis C Sc [facility] Start: 2004 Varicella vaccination Varicell a Vaccines (1 of 2 - 13+ 2-dose series) [facility] Start: 1996 COVID-19 Vaccine (#1) COVID-19 Vacci ne (#1) [facility] Start: 1992 MMR Vaccines (1 of 1 - Standard series) MMR Vaccines (1 of 1 - Standard series) [facility] Start: 1992 Varicella vaccination Varicell a Vaccines (1 of 2 - 2-dose childhood series) [facility] Start: 1991 COVID-19 Vaccine (#1) COVID-19 Vacci ne (#1) [facility] Start: 1991 Hepatitis B Vaccines (1 of 3 - 3-dose series) Hepatitis B Vaccines (1 of 3 - 3-dose series) [facility] Start: 1991 HIV screening HIV Screening [place] Start: 1991 Lipid panel Lipid Panel [facility] Start: 1991 Yearly Adult Physical Yearly Adult P hysical [facility] End: 05-09-2024 Cardiac stress study Procedure [facility] Service Area Work Phone: Comment on above: Once for 1 Occurrenc es starting 05/09/2024 until 05/09/2024 MG Breast - left Diagnostic Left diagnostic mammogram Imaging Routine Breast pain, left Ordered: 11/30/2023 [facility] Healthcare Work Phone: Comment on above: Ordered: 11/30/2023 MR Unspecified body region [facility] SENDOUT TEST MISCELLANEOUS [facility] SENDOUT TEST MISCELLANEOUS [facility] Lab Routine Screening for malignant neoplasm of cervix Ordered: 10/20/2023 [facility] Healthcare Work Phone: Comment on above: Ordered: 10/20/2023 US Breast - left limited Left breast US limited Imaging Routine Breast pain, left Ordered: 11/30/2023 [facility] [employer] Comment on above: Ordered: 11/30/2023 [facility] NEGATED: Highlighted row has been ruled out! Planned Goals not documented VO-MONRF-Ypyibb 310 IVF Work Phone: Immunizations Immunization Date Immunization Notes Care Provider [facility] 05-19-2021 tetanus toxoid, redu adriana diphtheria toxoid, and acellular pertussis vaccine, adsorbed Bakari Escalera PH-Bflcrdjtfd-Vwvrr [place] [address] DO Work Phone: Payers Date Payer Category Payer Self-pay [id number] 2022 Managed Care (Private) [facility] [id number] 2021 Private Health Insurance [employer] [id number]. [id number] 2021 Unknown 1991 Unknown [id number] 2.16.840.1.669320.3.579.2. 356 1991 Unknown [id number] 2.16.840.1.736991.3.579.2. 593 1991 Unknown [id number] 2.16.840.1.088903.3.579.2. 593 1991 Unknown [id number] 2.16.840.1.428230.3.579.2. 1245 1991 Unknown [id number] 2.16.840.1.750466.3.579.2. 1245 1991 Unknown [id number] 2.16.840.1.902067.3.579.2. 1244 1991 Unknown [id number] 2.16.840.1.732248.3.579.2. 1244 1991 Unknown [id number] 2.16.840.1.511676.3.579.2. 1244 1991 Unknown [id number] 2.16.840.1.011402.3.579.2. 1246 1991 Unknown [id number] 2.16.840.1.435631.3.579.2. 1259 1991 Unknown [id number] 2.16.840.1.013325.3.579.2. 1259 1991 Unknown [id number] 2.16.840.1.121642.3.579.2. 1259 1991 Unknown [id number] 2.840.1.258779.3.579.2. 1258 1991 Unknown [id number] 2..840.1.476039.3.579.2. 9 1991 Unknown [id number] 2.840.1.233228.3.579.2. 1258 1991 Unknown [id number] 2.840.1.759175.3.579.2. 1258 1991 Unknown [id number] .0.1.207319.3.579.2. 1258 1991 Unknown [id number] 2.0.1.080585.3.579.2. 9 1959 Unknown [id number] 1959 Unknown [id number] ..[id number] Private Health Insurance [id number] Unknown MM [id number] Unknown [id number] 04.08.830.1.614915.3.579.2. 531 Unknown [id number] 04.08.830.1.329648.3.579.2. 531 Unknown [id number] 04.08.830.1.245037.3.579.2. 531 Unknown [id number] .0.1.419802.3.579.2. 531 Unknown [id number] .840.1.482100.3.579.2. 531 Unknown [id number] 04.08.830.1.270638.3.579.2. 531 Social History Date Type Detail Facility Assertion Tobacco smoking consumption unknown (finding) AD-SNRIO-Pzyooz 310 IVF Work Phone: Start: 10-20-2023 End: 07-06-2024 Alcohol use Alcohol use AU-Dafdkvfaxd-Eyiow [place] [address] DO Work Phone: Comment on above: socially; 1 cup daily; Start: 06-20-2021 End: 02-24-2024 Tobacco smoking status NHIS Never smoked tobacco (finding) [facility] Start: 1990 Sex Assigned At Female F [facility] Start: 10-20-2023 End: 07-06-2024 Sex Assigned At [facility] Other Start: 12-12-2022 Tobacco smoking status NHIS Tobacco smoking consumption unknown [facility] Work Phone: Start: 1991 Sex Assigned At Not on file [facility] Work Phone: Start: 12-04-2022 End: 05-09-2024 Exposure to SARS-CoV-2 (event) Not sure [facility] Start: 11-30-2023 End: 04-13-2024 Alcoholic beverage intake Current drinker of alcohol (finding) [facility] Start: 09-29-2022 Education 18 [facility] Start: 09-29-2022 Alcohol Comment 1-2 drinks 2-4 x a month in the past year, Caffeine intake: soda/pop sips on coke for nausea , coffee [facility] Start: 12-30-2023 End: 02-24-2024 Tobacco use and exposure Smokeless tobacco non-user [facility] Work Phone: Start: 12-30-2023 Alcoholic beverage intake Lifetime non-drinker (finding) [facility] Work Phone: Start: 04-05-2024 End: 07-03-2024 Sex Female (finding) [facility] Start: 07-06-2024 Alcoholic beverage intake Ex-drinker (finding) [facility] Start: 07-06-2024 Alcohol Comment pt reports no caffiene intake [facility] Goals Date Patient Goal Desired Activity /State Personal health goal Functional Status Date Assessment Result Facility NEGATED: Highlighted row Functional performance Functional status health issues are not documented Disease VK-DIHEE-Fistoi 310 IVF Work Phone: Mental Status Date Assessment Result Facility NEGATED: Highlighted row Cognitive function [Interpretation] Cognitive status health issues are not documented Disease WS-JDRSL-Rbnemu 310 IVF Work Phone: Clinical Notes 07-19-2012 [...] 07/06/2024 10:31 AM documented in this encounter [facility] 04-18-2024 Evaluation note Authored April 18, 2024 12:45pm The above note written by __ _Dorcas Rush____ acting as human recorder, note dictated by Dr. Marley .I performed the above HPI, ROS, and Examination. I formulated and dictated the treatment plan and was present for entire encounter. Bakari Escalera D.O. [facility] Work Phone: 1([phone]) 664-938902-26-2025 Evaluation note* Author Bakari Escalera [facility] Authored April 18, 2024 12:45pm The above note written by __ _Dorcas Rush____ acting as human recorder, note dictated by Dr. Marley .I performed the above HPI, ROS, and Examination. I formulated and dictated the treatment plan and was present for entire encounter. Bakari Escalera D.O. Author Bakari [facility] Authored May 07, 2024 4:2 1pm The above note written by __ _Dorcas Rush____ acting as human recorder, note dictated by Dr. Marley .I performed the above HPI, ROS, and Examination. I formulated and dictated the treatment plan and was present for entire encounter. Bakari Escalera D.O. [facility] Work Phone: 1([phone]) 117-730802-21-2025 History of Present illness Narrative* Inga Josue, NURSE CONSULTANT - 04/13/2024 3:20 PM EST Images from the original note were not included. [address] , [address] [facility] [place], [address] P: [phone] F: [phone] HPI Historian of HPI: patient Jessica Valdez [...] ear normal. Nose: Nose normal. Mouth/Throat: Lips: [place]. Mouth: Mucous membranes are moist. Pharynx: Oropharynx [...] She expressed an understanding. 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 She was going to follow up with Dr. Escalera due to her amount of allergies and being able to take plain PCN. Thank you. [facility] Work Phone: [phone] Miscellaneous Notes* Telephone Encounter - Inga Josue NP - 02/04/2024 9:06 AM EST Please notify patient that her health trx nasal swab detected low microbial load of moraxella catarrhalis. She was going to follow up with Dr. Escalera due to her amount of allergies and being able to take plain PCN. Thank you. documented in this [facility]12-12-2024 History of Present illness Narrative* Inga Josue NP - 02/02/2024 3:35 PM EST Images from the original note were not included. [address] , [address] [facility] [place], [address] P: [phone] F: [phone] HPI Historian of [facility]: patient Jessica Valdez is a 33 y.o. [...] ear normal. Nose: Nose normal. Mouth/Throat: Lips: [place]. Mouth: Mucous membranes are moist. Pharynx: Oropharynx [...] not improving as expected. documented in this encounterHCA Midwest DivisionZhosoocurf69-01-2365 History of Present illness Narrative* Ariel Calderon MD - 12/30/2023 2:30 PM EST Subjective Jessica Valdez is a 33 y.o. female Chief Complaint [...] Scribe Attestation By signing my name below, Hollie Chan LPN, Scribe attest that this documentation has been prepared under the direction and in the presence of Ariel Calderon MD. Provider Attestation - Scribe documentation All medical record entries made by the Scribe were at my direction and personally dictated by me. Madi reviewed the chart and agree that the record accurately reflects my personal performance of the history, physical exam, discussion and plan. [facility] Work Phone: [phone]) 214-472011-08-2024 Instructions* Patient Instructions* Hollie Almanzar LPN - [...] Provided instructions on exercise. [facility] Work Phone: [phone]) 283-662210-09-2024 History of Present illness Narrative* Riddhi Villar DO - 11/30/2023 3:30 PM EDT Images [...] Review Audit Reviewed by Laurie Rogers MA (Shotblaster) on 11/30/23 at 1539 Medication Order Taking? Sig Documenting Provider Last Dose Status fluticasone (Flonase) 50 MCG/ACT nasal spray [id number] Historical Provider, Active sertraline (Zoloft) 50 MG tablet [id number] No 75 mg. Historical Provider, Taking Active [...] pain in female R10.2 documented in this encounterHCA [facility] DivisionHxknmghiyb65-84-8096 History of Present illness Narrative* Riddhi Villar [...] Review Audit Reviewed by Laurie Rogers MA (Shotblaster) on 10/20/23 at 1534 Medication Order Taking? Sig Documenting Provider Last Dose Status Discontinued 10/20/23 1534 fluticasone (Flonase) 50 MCG/ACT nasal spray [id number] Historical Provider, Active sertraline (Zoloft) 50 MG tablet [id number] No 75 mg. Historical Provider, Taking Active [...] pain in female R10.2 documented in this encounterHCA Midwest DivisionArerqjtios89-54-5901 History of Present illness Narrative* Marvin Haque, HAND SCREEN PRINTER-TRANSPORTATION PLANNING ENGINEER - 07/06/2023 3:30 PM EDT Subjective Patient [...] times per week, and plan to enter [employer] race for August 24. School ends July [...] needed Cont ind therapy documented in this [facility] Work Phone: [phone]) 602-747303-13-2024 History of Present illness Narrative* MATT Salas [...] needed Cont ind therapy [facility] Work Phone: [phone]) 227-289101-25-2024 Evaluation note* Encounter Date Diagnosis Assessment Notes [...] of any breach, fraud, or malicious third democrat actors and no personal patient information was compromised. [facility] Other 11-29-2023 History of Present illness Narrative* MATT Salas - 01/19/2023 3:30 PM EST Subjective Patient [...] provider as needed documented in this [facility] Work Phone: [phone]) 892-805210-24-2023 History of Present illness Narrative* MATT Salas [...] Contact provider as needed [facility] Work Phone: [phone]) 330-304208-24-2023 Chief complaint Narrative - Reported* An interactive audio and video telecommunication system which permits real time communications between the patient (at the originating site) and provider (at the distant site) was utilized to providethis telehealth service. * Verbal consent was requested and obtained from JESSICA VALDEZ on this date, 10/14/2022 08:00 AM , for a telehealth visit. [facility] Ayden DO Work Phone: [phone] Evaluation note* Encounter Date Diagnosis Assessment Notes [...] F41.9) She follows with a specialist through [facility] on virtual visits for the above medications. [...] given on how to use the medication. [facility] Other 06-20-2023 Chief complaint Narrative - Reported* An interactive audio and video telecommunication system which permits real time communications between the patient (at the originating site) and provider (at the distant site) was utilized to providethis telehealth service. * Verbal consent was requested and obtained from JESSICA VALDEZ on this date, 08/10/2022 11:00 AM , for a telehealth visit. [facility]-Szrnsfyxqx-[facility]AC[facility] [employer] DO Work Phone: [phone] Chief complaint Narrative - Reported* An interactive audio and video telecommunication system which permits real time communications between the patient (at the originating site) and provider (at the distant site) was utilized to providethis telehealth service. * Verbal consent was requested and obtained from JESSICA VALDEZ on this date, 05/25/2022 02:30 PM , for a telehealth visit. [employer] DO Work Phone: [phone]) 902-901701-11-2023 Chief complaint Narrative - Reported* An interactive audio and video telecommunication system which permits real time communications between the patient (at the originating site) and provider (at the distant site) was utilized to providethis telehealth service. * Verbal consent was requested and obtained from JESSICA MONDRAGONN on this date, 03/03/2022 01:00 PM , for a telehealth visit. VO-Qsvlaosqjf-Fdvlafg 5741 DO Work Phone: [phone] Evaluation note* Encounter Date Diagnosis Assessment Notes [...] right ear, unspecified type (ICD-10 - H60.501) [facility] Other 12-06-2022 Chief complaint Narrative - Reported* An interactive audio and video telecommunication system which permits real time communications between the patient (at the originating site) and provider (at the distant site) was utilized [facility]. * Verbal consent was requested and obtained from JESSICA CANTORJUAN MANUEL on this date, 01/26/2022 01:00 PM , for a telehealth visit. YM-Krkkvidnus-Lxqklug 4828 DO Work Phone: [phone] Evaluation note* Encounter Date Diagnosis Assessment Notes [...] Nov, Other 4:32 PM - 4:37 PM [facility] Other 07-29-2022 Evaluation note* Encounter Date Diagnosis Assessment Notes Treatment Notes Treatment Clinical Notes Aug, Fatigue (ICD-10 - R53.83) Aug, Weight gain (ICD-10 - R63.5) [place] [employer] Other 06-14-2022 Chief complaint Narrative - Reported* An interactive audio and video telecommunication system which permits real time communications between the patient (at the originating site) and provider (at the distant site) was utilized to providethis telehealth service. * Verbal consent was requested and obtained from JESSICA VALDEZ on this date, 08/04/2021 10:30 AM , for a telehealth visit. [facility] 201 DO Work Phone: [phone] 188-376505-10-2022 Chief complaint Narrative - Reported* An interactive audio and video telecommunication system which permits real time communications between the patient (at the originating site) and provider (at the distant site) was utilized to providethis telehealth service. * Verbal consent was requested and obtained from JESSICA VALDEZ on this date, 06/30/2021 02:00 PM , for a telehealth visit. [facility] 201 DO Work Phone: [phone]) [phone] Chief complaint Narrative - Reported* An interactive audio and video telecommunication system which permits real time communications between the patient (at the originating site) and provider (at the distant site) was utilized to providethis telehealth service. * Verbal consent was requested and obtained from JESSICA VALDEZ on this date, 06/18/2021 11:00 AM , for a telehealth visit. [facility] 201[address] DO Work Phone: [phone] Chief complaint Narrative - Reported* An interactive audio and video telecommunication system which permits real time communications between the patient (at the originating site) and provider (at the distant site) was utilized to providethis telehealth service. * Verbal consent was requested and obtained from JESSICA VALDEZ on this date, 04/23/2021 11:00 AM , for a telehealth visit. [address] DO Work Phone: [phone] 242-632501-13-2022 Chief complaint Narrative - Reported* An interactive audio and video telecommunication system which permits real time communications between the patient (at the originating site) and provider (at the distant site) was utilized to providethis telehealth service. * Verbal consent was requested and obtained from JESSICA VALDEZ on this date, 03/05/2021 11:00 AM , for a telehealth visit. [address] DO Work Phone: [phone]) [phone] Chief complaint Narrative - Reported* An interactive audio and video telecommunication system which permits real time communications between the patient (at the originating site) and provider (at the distant site) was utilized to providethis telehealth service. * Verbal consent was requested and obtained from JESSICA VALDEZ on this date, 01/22/2021 03:30 PM , for a telehealth visit. [address] DO Work Phone: [phone]) 604-415707-22-2021 Chief complaint Narrative - Reported* An interactive audio and video telecommunication system which permits real time communications between the patient (at the originating site) and provider (at the distant site) was utilized to providethis telehealth service. * Verbal consent was requested and obtained from JESSICA VALDEZ on this date, 09/11/2020 02:30 PM , for a telehealth visit. [address] DO Work Phone: [phone]) [phone] Chief complaint Narrative - Reported* An interactive audio and video telecommunication system which permits real time communications between the patient (at the originating site) and provider (at the distant site) was utilized to providethis telehealth service. * Verbal consent was requested and obtained from JESSICA VALDEZ on this date, 08/12/2020 10:30 AM , for a telehealth visit. [address] DO Work Phone: [phone] History general Narrative - Reported* Type Description Date Medical History History of NeuroCardiogenic Sync ope Medical History Left Knee X-Ray 07-19-12; [facility] Medical History migraine headache Surgical History Tubes in ears- when younger Surgical History Tonsillectomy age 7 Surgical History HSG tube check 04/2017 Surgical History 3 egg retrivals Hospitalization History see above Hospitalization History UC - strep 06/13/15 Hospitalization History c- section 06/19/21 [facility] Other 05-29-2013 History general Narrative - Reported* Type Description Date Medical History History of NeuroCardiogenic Sync ope Medical History Left Knee X-Ray 07-19-12; [facility] Medical History migraine headache Surgical History Tubes in ears- when younger Surgical History Tonsillectomy age 7 Surgical History HSG tube check 04/2017 Surgical History 3 egg retrivals Surgical History 05/30/21 Hospitalization History see above Hospitalization History UC - strep 06/13/15 Hospitalization History c- section 06/19/21 [facility] Other Evaluation noteNo assessment information available [facility] Work Phone: Evalualegn noteNo InformationNortHaven Behavioral Healthcare [employer] Other Evaluation note* Diagnosis Moderate episode of recurrent major depressive disorder (CMS/HCC) ADEN (generalized anxiety disorder) Generalized anxiety disorder documented in this encounter [facility] Work Phone: Evaluation note* Diagnosis Anxiety and depression documented in this encounter [facility] Work Phone: Evaluation note* Diagnosis ADEN (generalized anxiety disorder) Generalized anxiety disorder Anxiety and depression documented in this encounter [facility] Work Phone: Evaluation note* Diagnosis Anxiety and depression documented in this encounter [facility] Work Phone: Evaluation note* Diagnosis Menorrhagia with regular cycle Pelvic pain in female Unspecified symptom associated with female genital organs Breast pain, left [facility] Diagnosis Neurocardiogenic pre-syncope Hypotension, unspecified hypotension type BMI 32.0-32.9,adult Never smoked tobacco documented in this encounter [facility] Work Phone: Evaluation note* Diagnosis Viral [...] 052024 1:26pm Sore throat noneactive March 1:26pm [facility] Work Phone: Evaluation note* Diagnosis Other headache syndrome- Primary Cough, unspecified type [facility]* Diagnosis Chest pain, unspecified type documented in this encounter [facility] Work Phone: Evaluation note* Diagnosis care, [...] 2020 of grandmother named Prerna Forde from [facility] Counselling w/ focus on anxiety and grief. [...] LUANN None * Psychosocial * B/R [place] * Parents were and together * Has younger sister * x 4 yrs * Employed at [employer] * Education MS Degree * Legal : mother is 19 yo. Has seen baby twice, planned for 3 times per yr, but some limitations * mother grew up in Foster system, adoptions was legalized in Mar 2020. FC-Tuwepcnpid-Fameq [place] DO Work Phone: History of Present illness NarrativeFollow up appt KO-Txkhgciyub-Ajbwp River DO Work Phone: Instructions* Name Dates Details Instructions not documented XY-FSNEI-Gzlvvw 310 IVF Work Phone: Reason for visit Narrative* Cardiac Stress Testing (Routine) - Authorized Specialty Diagnoses / Procedures Referred By Contac t Referred To Contact Cardiology Diagnoses Chest pain, unspecified type Procedures Stress Test TX CV STRS TST XERS&/OR RX CONT ECG TRCG ONLY Ariel Calderon MD [address] [facility] [address] [place] [address] Phone: tel: fax: Referral ID Status Reason Start Date Expiration Date V isits Requested Visits Authorized [id number] Authorized 04/17/2024 04/17/2025 1 1 [facility] Work Phone: Summary Purpose Family History No Family History Records FoundUnknown Family Member Name Dates Details FH: CABG [...] ellitus: Grandparent(V18.0, Z83.3) Status:Active TIA (transient ischemic czear ck): Grandmother Status:Active No pertinent family history: [...] dementia Unknown mother Diverticulitis Unknown Advance Directives No Advanced Directives Records Found Advance Directive Response Recorded Date/ Time Advance [...] 4. Chromopertubation Surgeon: Dr. Shaila Conley Resident/Fellow/Other Roof Bolter Operator: Dr. Emilie Childers Anesthesia: GETA I.V. Fluids: [...] Diagnosis 1 Concussion (S06.0X9A ) Referral Organization [facility] Family Medicin e [place] Referring Provider First Name Bakari Referring Provider Last Name Nilay Referring Provider Specialty Family Prac rohith Referred Organization [facility] Referred Address [address] [place], [place],[address] Referred Provider Specialty Melissa s Referral Priority Routine General Notes Polly Damon 09/29/2022 10:03:18 AM > pt was provided with the phone number for [facility] and she will call and make this appt herself. referral closed. Reason appt consult for c oncussion/[facility] conc[facility] Diagnosis 1 Concussion (S06.0X9A ) Referral Organization [facility] Family Medicin e [place] Referring Provider First Name Bakari Referring Provider Last Name Nilay Referring Provider Specialty Family Prac rohith Referred Organization [facility] Referred Address [address] [place], [place] Referred Provider Specialty Sport Medici ne Referral Priority Routine General Notes Polly Damon 09/29/2022 10:54:51 AM > per pt, she does need a referral to the concussion clinic. [facility] contacted, , and obtained fax number of [phone]. referral faxed with visit note, CT report and insurance card. Additional Source Comments INFORMATION SOURCE (unrecogn ized section and content) DATE CREATED AUTHOR 11/20/2019 [facility] DATE CREATED AUTHOR AUTHOR'S ORGANIZ ATION 03/17/2022 [facility] dical Specialist DATE CREATED AUTHOR AUTHOR'S ORGANIZ ATION 06/03/2022 [facility] DATE CREATED AUTHOR AUTHOR'S ORGANIZ ATION 06/25/2022 [facility] [place] [facility] DATE CREATED AUTHOR AUTHOR'S ORGANIZ ATION 10/15/2022 [employer] DATE CREATED AUTHOR AUTHOR'S ORGANIZ ATION 01/22/2023 [facility] DATE CREATED AUTHOR AUTHOR'S ORGANIZ ATION 04/18/2024 [facility] DATE CREATED AUTHOR AUTHOR'S ORGANIZ ATION 05/14/2024 [facility] DATE CREATED AUTHOR AUTHOR'S ORGANIZ ATION 07/07/2024 [facility] dical Specialists EPIC DATE CREATED AUTHOR AUTHOR'S ORGANIZ ATION 07/10/2024 [facility] y[facility] Group Care Teams (unrecognized sec tion and content) Team Status: Active Member Role Status Dates Bakari Escalera DO Primary Care Provider Active Team Status: Inactive Member Role Status Dates Bakari Escalera DO Primary Care Provider, Attending Pro vider Active Tipping Machine Operator Automatic Relationship Specialty Start Date End Date Bakari Escalera DO [address] [place] [address] PCP - General 08/28/19 Tipping Machine Operator Automatic Relationship Specialty Start Date End Date Bakari Escalera DO [address] [place] [address] PCP - General 08/28/19 Team Status: Inactive Member Role Status Dates Bakari Escalera DO Primary Care Provider Active Yang Garcia DO Attending Provider Active Tipping Machine Operator Automatic Relationship Specialty Start Date End Date Bkaari Escalera DO [address] [place] [address] PCP - General 08/28/19 Tipping Machine Operator Automatic Relationship Specialty Start Date End Date Bakari Escalera DO [address] [place] [id number] PCP - General 08/28/19 Team Status: Inactive Member Role Status Dates Bakari Escalera DO Primary Care Provide r, Attending Provider Active Start: October 28, 2023 End: October 28, 2023 Tipping Machine Operator Automatic Relationship Specialty Start Date End Date Bakari Escalera MD [address] [place] [address] PCP - General Family Medicine 09/30/22 Tipping Machine Operator Automatic Relationship Specialty Start Date End Date Bakari Escalera DO PCP - General 08/28/19 Tipping Machine Operator Automatic Relationship Specialty Start Date End Date Bakari Escalera MD [address] [place] [address] PCP - General Family Medicine 09/30/22 Tipping Machine Operator Automatic Relationship Specialty Start Date End Date Bakari Escalera MD [address] [place] [address] PCP - General Family Medicine 09/30/22 Tipping Machine Operator Automatic Relationship Specialty Start Date End Date Bakari Escalera MD [address] [place] [address] PCP - General Family Medicine 09/30/22 Tipping Machine Operator Automatic Relationship Specialty Start Date End Date Bakari Escalera MD [address] [place] [address] PCP - General Family Medicine 09/30/22 Tipping Machine Operator Automatic Relationship Specialty Start Date End Date Bakari Escalera MD [address] [place], [place] [id number] PCP - General Family Medicine 09/30/22 Team Status: Inactive Member Role Status Dates Bakari Escalera DO Primary Care Provider Active S tart: April 05, 2024 End: April 05, 2024 Jeni Whittington APRN Attending Provider Active Start: April 05, 2024 End: April 05, 2024 Tipping Machine Operator Automatic Relationship Specialty Start Date End Date Bakari Escalera MD [address] [place] [address] PCP - General Family Medicine [...] May 07, 2024 End: May 07, 2024 Tipping Machine Operator Automatic Relationship Specialty Start Date End Date Bakari Escalera DO PCP - General 08/28/19 Team Status: Inactive Member Role Status Dates Bakari Escalera DO Primary Care Provide r, Attending Provider Active Start: June 06, 2024 End: June 06, 2024 Tipping Machine Operator Automatic Relationship Specialty Start Date End Date Bakari Escalera MD [address] [place], [place] [id number] PCP - General Family Medicine 09/30/22 Tipping Machine Operator Automatic Relationship Specialty Start Date End Date Bakari Escalera MD [address] [place], [place] [id number] PCP - General Family Medicine 09/30/22 Team [...] July 02, 2024 End: July 02, 2024 Tipping Machine Operator Automatic Relationship Specialty Start Date End Date Bakari Escalera MD [address] [place] [id number] PCP - General Family Medicine 09/30/22 Goals (unrecognized section and content) Goals may [...] BE BASED ON THE PRIMARY CLINICAL RECORDS. [facility] [employer] [facility]. provides no warranty or guarantee of the accuracy or completeness of information in this document.
[2024-07-11 18:04] VITALS: BP 142/76; PULSE 95; TEMP 37; O2SAT 100; BMI 69.6
--- NOTE | 2024-07-11 18:21 | ED_ITS ---
HPI HPI - General Adult General Chief complaint: Abdominal Pain Stated complaint: surgery complications Time Seen by Provider: 07/11/24 17:54 Source: patient Mode of arrival: walk-in Limitations: no limitations History of Present Illness HPI narrative: This 34-year-old female presents to the ED complaining of rectal pressure and pain. She was initially seen yesterday and was found to have an ectopic and underwent laparoscopic left salpingectomy with a tubal was present. 150 mL blood was present in the abdominal cavity which was removed. Surgeon also reports the presence of endometriosis in the cul-de-sac. She also has some discomfort in her right shoulder but she knows that this is likely due to diaphragmatic irritation from insufflated gas. She denies chills or fever, nausea or vomiting. Related Data Home Medications ?Medication ?Instructions ?Recorded ?Confirmed lorazepam 0.5 mg tablet mg 07/11/24 Previous Rx's ?Medication ?Instructions ?Recorded hydrocodone 5 mg-acetaminophen 325 1 tab PO Q4H PRN pa in 4 days #16 07/10/24 mg tablet tabs Allergies Allergy/AdvReac Type Severity Reaction Status Date / Time azithromycin Allergy Rash Verified 07/11/24 18:04 doxycycline Allergy Rash Verified 07/11/24 18:04 Sulfa (Sulfonamide Allergy Rash Verified 07/11/24 18:04 Antibiotics) cefdinir (From Omnicef) AdvReac Joint Pain Verified 07/11/24 18:04 Opioid HPI Opioid Management Most Recent Opioid Data: Last Pain Scale 3 07/10/24, 19:19 Last Pain Assessment 07/10/24, 16:56 Review of Systems ROS Status of ROS 10 or more systems reviewed and unremark able except as noted in history and below PFSH PFSH Medical History Vaginal bleeding affecting early ?O20.9 - Hemorrhage in early , unspecified (ICD-10) Ectopic without intrauterine ?O00.90 - Unspecified ectopic without intrauterine (ICD- 10) POTS (postural orthostatic tachycardia syndrome) ?G90.A - Postural orthostatic tachycardia syndrome [POTS] (ICD-10) Social History Little interest or pleasure in doing things: not at all Feeling down, depressed, or hopeless: not at all Exam Narrative Exam Narrative: Patient is afebrile upon arrival with stable hemodynamics. Skin is warm and dry. HEENT exam is normal to inspection. Neck is supple. Lung sounds are clear to auscultation bilaterally. Heart has regular rate and rhythm. Abdomen is protuberant and soft with diffuse lower abdominal tenderness. Incision sites unremarkable. Bowel sounds are hypoactive. Lower extremities are warm and dry. Constitutional Vital Signs, click to edit/add: Last Vital Signs Temp 98.6 F 07/11/24 18:04 Pulse 95 H 07/11/24 18:04 Resp 18 07/11/24 18:04 BP 142/76 H 07/11/24 18:04 Pulse Ox 100 07/11/24 18:04 O2 Del Method Room Air 07/11/24 18:04 Course Vital Signs Vital signs: Vital Signs Temperature 98.6 F 07/11/24 18:04 Pulse Rate 95 H 07/11/24 18:04 Respiratory Rate 18 07/11/24 18:04 Blood Pressure 142/76 H 07/11/24 18:04 Pulse Oximetry 100 07/11/24 18:04 Oxygen Delivery Method Room Air 07/11/24 18:04 Temperature 98.6 F 07/11/24 18:04 Pulse Rate 95 H 07/11/24 18:04 Respiratory Rate 18 07/11/24 18:04 Blood Pressure 142/76 H 07/11/24 18:04 Pulse Oximetry 100 07/11/24 18:04 Oxygen Delivery Method Room Air 07/11/24 18:04 Medical Decision Making [facility] Narrative Medical decision making narrative: Baseline labs and CT scan of the abdomen pelvis were ordered. Patient's care is transferred to oncoming physician at change of shift for further evaluation and eventual disposition. Discharge Plan Discharge Chief Complaint: Abdominal Pain Prescriptions / Home Meds: No Action lorazepam 0.5 mg tablet hydrocodone-acetaminophen 5-325 mg tablet 1 tab PO Q4H PRN (Reason: pain) 4 Days Qty: 16 0RF Print Language: Malawian Referrals: BAKARI ESCALERA [Primary Care Provider, Family Practice] - 1 week
--- NOTE | 2024-07-11 18:41 | CT_ITS ---
The [address] [address] Patient Name: VINICIUS CHARLES MRN: [id number] date: 1990 Sex: F Assigned Patient Location: ER Current Patient Location: ER Accession/Order Number: [id number] Exam Date: 07/11/2024 18:51 Report Date: 07/11/2024 18:58 At the request of: ROB MOSER MD Procedure: CT abdomen pelvis wo con CT Abdomen and Pelvis withoutcontrast TECHNIQUE: Axial imaging with 2-D reconstruction. . The CT exam was performed using one or more the following dose reduction techniques: Automated exposure control, adjustment of the MA and/or Kv according to patient size, or use of the iterative reconstruction technique. COMPARISON: None History: Postop pain. Surgery yesterday for ectopic in the left. Anal and uterine pressure. LIMITATIONS: None LOWER THORAX tiny bilateral pleural effusions with adjacent atelectasis LIVER: Unremarkable GALLBLADDER: No gallbladder abnormality identified. BILE DUCTS: No dilatation SPLEEN: Unremarkable PANCREAS: Unremarkable ADRENAL GLANDS: Unremarkable KIDNEYS:3 mm right renal calculus. AORTA: No abdominal aortic aneurysm identified. RETROPERITONEUM: No significant retroperitoneal abnormalities identified. MESENTERY:Unremarkable SMALL BOWEL: The small bowel loops are nondistended. APPENDIX: The appendix is normal. COLON: Unremarkable URINARY BLADDER: Urinary bladder is unremarkable. REPRODUCTIVE SYSTEM: Reproductive structures are unremarkable. PNEUMOPERITONEUM: Small amount of regions of Free air in the upper abdomen in the umbilical region. PERITONEAL FLUID:Trace pelvic ascites. BONY STRUCTURES: Unremarkable ABDOMINAL WALL: Unremarkable CT/CT abdomen pelvis wo con IMPRESSION: Foci of free air likely postsurgical. Minimal pleural effusions with atelectasis. Trace pelvic ascites. Impression dictated by: Usama Emerson M.D. 07/11/2024 6:58 PM Dictation Location: [place] [address] Electronically authenticated by: [id number] Y Date: 07/11/2024 18:58
[2024-07-11 18:48] LABS: Basophils Percent Auto 0.3 % (0.2-2.0); Eosinophils Percent Auto 0.2 % (0.9-7.0); Hematocrit 39.7 % (36.0-48.0); Hemoglobin 12.8 g/dL (12.0-16.0); Immature Granulocytes Abs Auto 0.02 10^3/uL (0.00-0.03); Immature Granulocytes Pct Auto 0.2 % (0.0-0.5); Lymphocytes Absolute Auto 3.5 10^3/uL (1.2-3.8); Lymphocytes Percent Auto 28.6 % (20.5-60.0); Mean Corpuscular HGB Conc 32.2 g/dL (29.9-35.2); Mean Corpuscular Hemoglobin 29.6 pg (26.7-34.0); Mean Corpuscular Volume 91.9 fL (81.0-99.0); Mean Platelet Volume 9.1 fL (9.5-13.5); Monocytes Absolute Auto 0.8 10^3/uL (0.3-0.8); Monocytes Percent Auto 6.5 % (1.7-12.0); Neutrophils Absolute Auto 7.8 10^3/uL (1.4-6.5); Neutrophils Percent Auto 64.2 % (43.0-75.0); Platelet Count 304 10^3/uL (150-450); Red Blood Count 4.32 10^6/uL (4.20-5.40); Red Cell Distribution Width 12.3 % (11.0-15.0); White Blood Count 12.1 10^3/uL (4.0-11.0)
[2024-07-11] MEDS: 0.9 % SODIUM CHLORIDE 1,000 ML 1000 ML IV (18:48)
[2024-07-11 18:57] LABS: Alanine Aminotransferase 24 U/L (14-59); Albumin Globulin Ratio 1.2; Albumin Level 3.6 g/dL (3.4-5.0); Alkaline Phosphatase 57 U/L (46-116); Anion Gap 9.5; Aspartate Amino Transferase 12 U/L (15-37); BUN Creatinine Ratio 11.5; Bilirubin Total 0.3 mg/dL (0.2-1.0); Calcium 8.6 mg/dL (8.5-10.1); Carbon Dioxide 29.1 mmol/L (21.0-32.0); Chloride 106 mmol/L (98-107); Estimated GFR (African America >60 (>=60 mL/min/1.73m^2); Estimated GFR (Non-African Ame >60 (>=60 mL/min/1.73m^2); Globulin 3.1 g/dL; Glucose 101 mg/dL (74-106); Potassium 3.6 mmol/L (3.5-5.1); Sodium 141 mmol/L (136-145); Total Protein 6.7 g/dL (6.4-8.2)
[2024-07-11 19:45] VITALS: BP 110/75; PULSE 91; O2SAT 100
--- NOTE | 2024-07-11 19:59 | ED_ITS ---
HPI - Abdominal Pain General Chief Complaint: Abdominal Pain Stated Complaint: surgery complications Time Seen by Provider: 07/11/24 17:54 Source: patient Mode of arrival: walk-in Limitations: no limitations History of Present Illness HPI narrative: This 34-year-old female who is status post laparoscopic surgery for an ectopic was signed out to me at shift change. She presents for evaluation of lower abdominal pressure and pressure around her rectum. CT scan was ordered and pending at the time of signout. CT scan was reviewed by myself. It shows a foci of free air likely postsurgical with minimal pleural effusions with atelectasis and trace pelvic ascites. She also has a 3 mm right kidney stone. The remainder of the CT scan is normal. Patient was seen and evaluated. She is feeling some pain at this time and agreeable to something for pain but does not wish to have narcotics. IV Toradol was ordered for her. I reviewed her labs. Her hemoglobin is stable at 12.8. Electrolytes are normal. She was encouraged return the emergency department for ongoing or worsening symptoms or any concerns. I explained to her that laparoscopic surgery uses a lot of air to inflate the abdomen which can cause a lot of pressure in the abdomen and she also had some endometriosis that was removed in her pelvic area. The combination of the laparoscopic surgery for the ectopic and removal of the en dometriosis can cause a lot of discomfort in the abdomen and is likely the etiology of the small amount of fluid in her pelvis. I explained to her that the body will likely absorb this. She is otherwise hemodynamically stable for discharge. Related Data Home Medications ?Medication ?Instructions ?Recorded ?Confirmed lorazepam 0.5 mg tablet mg 07/11/24 Previous Rx's ?Medication ?Instructions ?Recorded hydrocodone 5 mg-acetaminophen 325 1 tab PO Q4H PRN pa in 4 days #16 07/10/24 mg tablet tabs Allergies Allergy/AdvReac Type Severity Reaction Status Date / Time azithromycin Allergy Rash Verified 07/11/24 18:04 doxycycline Allergy Rash Verified 07/11/24 18:04 Sulfa (Sulfonamide Allergy Rash Verified 07/11/24 18:04 Antibiotics) cefdinir (From Omnicef) AdvReac Joint Pain Verified 07/11/24 18:04 PFSH PFSH Medical History Vaginal bleeding affecting early ?O20.9 - Hemorrhage in early , unspecified (ICD-10) Ectopic without intrauterine ?O00.90 - Unspecified ectopic without intrauterine (ICD- 10) POTS (postural orthostatic tachycardia syndrome) ?G90.A - Postural orthostatic tachycardia syndrome [POTS] (ICD-10) Social History Little interest or pleasure in doing things: not at all Feeling down, depressed, or hopeless: not at all Exam Constitutional Vital Signs, click to edit/add: Last Vital Signs Temp 98.6 F 07/11/24 18:04 Pulse 91 H 07/11/24 19:45 Resp 16 07/11/24 19:45 BP 110/75 07/11/24 19:45 Pulse Ox 100 07/11/24 19:45 O2 Del Method Room Air 07/11/24 19:45 Course Vital Signs Vital signs: Vital Signs Temperature 98.6 F 07/11/24 18:04 Pulse Rate 95 H 07/11/24 18:04 Respiratory Rate 18 07/11/24 18:04 Blood Pressure 142/76 H 07/11/24 18:04 Pulse Oximetry 100 07/11/24 18:04 Oxygen Delivery Method Room Air 07/11/24 18:04 Temperature 98.6 F 07/11/24 18:04 Pulse Rate 91 H 07/11/24 19:45 Respiratory Rate 16 07/11/24 19:45 Blood Pressure 110/75 07/11/24 19:45 Pulse Oximetry 100 07/11/24 19:45 Oxygen Delivery Method Room Air 07/11/24 19:45 MDM - Abdominal Pain Lab Data Labs: Lab Results 07/11/24 Range/Units 18:33 WBC 12.1 H (4.0-11.0) 10^3/uL RBC 4.32 (4.20-5.40) 10^6/uL Hgb 12.8 (12.0-16.0) g/dL Hct 39.7 (36.0-48.0) % MCV 91.9 (81.0-99.0) fL MCH 29.6 (26.7-34.0) pg MCHC 32.2 (29.9-35.2) g/dL RDW 12.3 (11.0-15.0) % Plt Count 304 (150-450) 10^3/uL MPV 9.1 L (9.5-13.5) fL Neut % (Auto) 64.2 (43.0-75.0) % Lymph % (Auto) 28.6 (20.5-60.0) % [place] % (Auto) 6.5 (1.7-12.0) % Eos % (Auto) 0.2 L (0.9-7.0) % Baso % (Auto) 0.3 (0.2-2.0) % Neut # (Auto) 7.8 H (1.4-6.5) 10^3/uL Lymph # (Auto) 3.5 (1.2-3.8) 10^3/uL [place] # (Auto) 0.8 (0.3-0.8) 10^3/uL Eos # (Auto) 0.0 (0.0-0.7) 10^3/uL Baso # (Auto) 0.0 (0.0-0.1) 10^3/uL Abs Immat Gran (auto) 0.02 (0.00-0.03) 10^3/uL Imm/Tot Granulo (auto) 0.2 (0.0-0.5) % Sodium 141 (136-145) mmol/L Potassium 3.6 (3.5-5.1) mmol/L Chloride 106 (98-107) mmol/L Carbon Dioxide 29.1 (21.0-32.0) mmol/L Anion Gap 9.5 BUN 10.0 (7.0-18.0) mg/dL Creatinine 0.87 (0.55-1.02) mg/dL Est GFR ( Amer) >60 (>=60 mL/min/1.73m^2) Est GFR (Non-Af Amer) >60 (>=60 mL/min/1.73m^2) BUN/Creatinine Ratio 11.5 Glucose 101 (74-106) mg/dL Calcium 8.6 (8.5-10.1) mg/dL Total Bilirubin 0.3 (0.2-1.0) mg/dL AST 12 L (15-37) U/L ALT 24 (14-59) U/L Alkaline Phosphatase 57 (46-116) U/L Total Protein 6.7 (6.4-8.2) g/dL Albumin 3.6 (3.4-5.0) g/dL Globulin 3.1 g/dL Albumin/Globulin Ratio 1.2 Lipase 23.0 (16.0-77.0) U/L Discharge Plan Discharge Chief Complaint: Abdominal Pain Clinical Impression: Postoperative abdominal pain Patient Disposition: Home, Self-Care Time of Disposition Decision: 20:02 Condition: Good Prescriptions / Home Meds: No Action lorazepam 0.5 mg tablet hydrocodone-acetaminophen 5-325 mg tablet 1 tab PO Q4H PRN (Reason: pain) 4 Days Qty: 16 0RF Print Language: Danish Instructions: Heat Pack Application (ED), Pain Management After Surgery (DC) Referrals: BAKARI ESCALERA [Primary Care Provider, Family Practice] - 1 week
[2024-07-11] MEDS: KETOROLAC TROMETHAMINE 30 MG/ML VIAL IVP (20:04)
[2024-07-11 20:23] VITALS: BP 110/75; PULSE 90; O2SAT 100
== END 2024-07-11 20:26 | disposition home or self-care (01) ==
PROVIDERS: Emergency Medicine; Emergency Provider Emergency Medicine; PCP Family Medicine
DX: G89.18 Other acute postprocedural pain (principal); R10.30 Lower abdominal pain, unspecified; Z98.890 Other specified postprocedural states; N20.0 Calculus of kidney
CPT/HCPCS: 36415; 74176; 80053; 83690; 85025; 96374; 99285; J1885

== ENCOUNTER 2025-01-26 09:59 | Outpatient (OUT) | payer OTHER, SELFPAY ==
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
--- OUTSIDE RECORDS SUMMARY | 2025-01-26 10:04 | XMS_ITS | CCD ---
Author Organization [facility] Care Team Providers Care Research Quality Assurance Analyst Name Role Phone Kelsi Harry Unavailable Unavailable OBGYN IVF RDMS [id number] 1, MG OBGYN Unavailable Unavailable Shaila Conley Unavailable Unavailable Bakari Escalera Unavailable Unavailable Piero MANAGER TECHNICAL SUPPORT-ALL SOURCE ANALYSTKelsi Unavailable Unavailab rohit Ocampo MD, Marie Unavailable [...] KACY Suárez Primary Care Unavailable DIAB ., LUNA Attending Unavailable DIAB ., LUNA Consulting Unavailable DIAB ., LUNA Admitting Unavailable VIC PAULINO Attending Unavailable VIC PAULINO Admitting Unavailable DR BAKARI ESCALERA Primary Care Unavailable MICHELE WALKER Consulting UnavailVIC Lawson Consulting Unavailable DO Bakari Escalera Primary Care Provider [phone] DO Bakari Escalera Attending Provider Lawrence Su Unavailable Bakari Escalera DO Primary Care Provider MARVIN HAQUE Attending Unavailable BAKARI ESCALERA Primary Care Unavailable MARVIN HAQUE Attending Unavailable BAKARI ESCALERA Primary Care Unavailable DO Bakari Escalera Primary Care Provider DO Yang Garcia Attending Provider DO Bakari Escalera Primary Care Provider DO Bakari Escalera Attending Provider [phone] Bakari Escalera MD Primary Care Provider Bakari Escalera DO Primary Care Provider Bakari Escalera DO Primary Care Provider [phone] ARIEL CALDERON Referring Unavailable BAKARI ESCALERA Primary Care Unavailable Bakari Escalera DO Primary Care Provider Bakari Escalera DO Attending Provider [phone] Bakari Escalera MD Primary Care Provider [phone] Riddhi Villar DO Attending Provider Luna La MD Attending Provider Ruddy Mejia DO Attending Provider [phone] Bakari Escalera DO Primary Care Provider Orville BRODERICK, Warren Attending Provider Bakari Escalera DO Attending Provider Bakari Escalera DO Primary Care Provider Bakari Escalera DO Attending Provider Bakari Escalera Admitting Unavailable Bakari Escalera Primary Care Unavailable Bakari Escalera Attending Unavailable Bakari Escalera Primary Care Unavailable Jackie, Ruddy Admitting Unavailable Jackie, Ruddy Attending Unavailable Jackie, Ruddy Admitting Unavailable Jackie, Ruddy Attending Unavailable Rinkes, Riddhi Admitting Unavailable Rinsree, Riddhi Attending Unavailable Bakari Escalera Primary Care Unavailable Rinkes, Riddhi Admitting Unavailable Rinkes, Riddhi Attending Unavailable Bakari Escalera Primary Care Unavailable Rinkes, Riddhi Admitting Unavailable Brisa, Riddhi Attending Unavailable Bakari Escalera Primary Care Unavailable Jackie, Ruddy Attending Unavailable Jackie, Ruddy Admitting Unavailable Abhinav, Luna A Admitting Unavailable Luna La Attending Unavailable Bakari Escalera Admitting Unavailable Bakari Escalera Primary Care Unavailable Bakari Escalera Attending Unavailable Bakari Escalera Primary Care Unavailable Bakari Escalera Attending Unavailable Bakari Escalera Admitting Unavailable Bakari Escalera DO Primary Care Provider Bakari Escalera DO Attending Provider Bakari Escalera MD Primary Care Provider [phone] INGA JOSUE Attending Unavailable RIDDHI VILLAR Referring Unavailable INGA JOSUE Attending Unavailable RUDDY MEJIA Attending Unavailable MERARI PHAM Attending Unavailable ANJUM SANCHEZ Attending Unavailable ARIEL CALDERON Referring Unavailable BAKARI ESCALERA Primary Care Unavailable ARIEL CALDERON Attending Unavailable ARIEL CALDERON Referring Unavailable BAKARI ESCALERA Primary Care Unavailable Bakari Escalera DO Primary Care Provider [phone] Allergies Allergy ClassificationReported Allergen(s)Allergy TypeDate of OnsetReaction(s) FacilityAmoxicillin / Clavulanate (9 sources)Amoxicillin / Clavulanate; Translations: [Augmentin]Drug Allergy BK-FHAJL-Izpyvg 310 IVF Work Phone: [phone] (9 sources)Doxycycline; Translations: [doxycycline]Drug PiexgtvBA-TPNLY-Fkbxaf 310 IVF Work Phone: [phone] (antibiotic) (9 sources)Amoxicillin; Translations: [amoxicillin]Drug NphxaocQP-AHFWQ-Poxesv 310 IVF Work Phone: [phone] / Trimethoprim (9 sources)Sulfamethoxazole / Trimethoprim; Translations: [Bactrim]Drug Allergy VV-CGPYO-Lwoida 310 IVF Work Phone: Sulfonamides (antibiotic) (9 sources)Sulfonamides (Antibiotic); Translations: [Sulfonamide Derivatives] Drug CjrdioyGL-ZETUW-Ffgfqb 310 IVF Work Phone: (20 sources)Amoxicillin; Translations: [amoxicillin]Drug Jbuxcnp78-77-0926kchuOhioHealth (20 sources)Amoxicillin / Clavulanate; Translations: [Augmentin]Drug Allergy UckdkHT-VLXCV-Vyrvga 310 IVF Work Phone: (20 sources)Doxycycline; Translations: [doxycycline]Drug Vhddlww05-12-1478 [facility] (20 sources)Sulfamethoxazole / Trimethoprim; Translations: [Bactrim]Drug Allergy MF-ZBLWF-Ogjags 310 IVF Work Phone: (20 sources)Sulfonamides (Antibiotic); Translations: [Sulfonamide Derivatives] Allergy to drug (finding)JK-KNUEI-Aaidwo 310 IVF Work Phone: (20 sources)Azithromycin; Translations: [Zithromax]Drug Ykybyxf25-83-0356fwul, YgnwiNU-Sxzirfrqtl-Dbqze [place] [address] DO Work Phone: (10 sources)Cefaclor; Translations: [Ceclor CAPS]Drug AllergyHives YB-Gvnzljydkm-Juvuw [place] [address] DO Work Phone: (10 sources)cefdinir; Translations: [Omnicef CAPS]Drug AllergyHives LY-Kjvpqzlbjz-[place] [address] DO Work Phone: (17 sources)Ibuprofen / Pseudoephedrine; Translations: [Advil Cold & Sinus Liqui-Gels CAPS]Drug Rjuawhm08-06-1483PvarvMX-Bvroyhphxi-Glzlq [place] [address] DO Work Phone: (10 sources)Sulfonamides (Antibiotic); Translations: [Sulfa Drugs]Allergy to drug (finding)UhsvdJN-Izchlvfgok-Yvure [place] [address] DO Work Phone: (20 sources)Azithromycin; Translations: [Azithromycin]Drug Oyknbkh00-36-2558LavgOur Lady Of Mercy Hospital (20 sources)cefdinir; Translations: [CEFDINIR]Drug Sdfwmtx82-95-3667UrlvuCincinnati Shriners Hospital (20 sources)Ibuprofen; Translations: [IBUPROFEN]Drug Cetfdks45-34-4620BuhizGeorgetown Behavioral Hospital (20 sources)Penicillins; Translations: [Penicillins]Propensity to adverse -20-6487YsfxDsjfcpblmKettering Health Troy (20 sources)Sulfamethoxazole; Translations: [sulfamethoxazole]Drug Allergy 91-13-2045XzlrKatgxxqatKettering Health Troy (20 sources)Trimethoprim; Translations: [trimethoprim]Drug Kncsewv89-41-6272ApawOur Lady Of Mercy Hospital (9 sources)cefdinir; Translations: [Omnicef]Drug Iedeggs80-50-0369gqrwGpa [facility] (8 sources)CefuroximeDrug AllergyrashNAdirondack Regional Hospital [employer] Other (20 sources)Erythromycin; Translations: [ERYTHROMYCIN]Drug Gcbvfgh44-20-9300qqbo [place] [employer] Other (20 sources)Fluconazole; Translations: [FLUCONAZOLE]Drug Hpazbqk43-54-9576Sjsic [place] [employer] Other (8 sources)Penicillin VDrug Allergynew mexico rehabilitation center / Dr. Rodrigez (2017) pt can take PCN and not CephalosporinsNortOSS Health [employer] Other (20 sources)SulfacetamideDrug Iklcqyx70-19-7273gmpaNgblfcsmiCrystal Clinic Orthopedic Center (1 source)AzithromycinDrug Unxamau60-85-5853AaaOhiohealth Berger Hospital [facility] (1 source)IbuprofenDrug Ufegkpt42-94-2205WbeOhiohealth Berger Hospital Repository (1 source)Sulfonamides (Antibiotic)Drug allergy (disorder)76-76-1904ExhOhiohealth Berger Hospital Rep[facility] (20 sources)Amoxicillin / Clavulanate; Translations: [AMOXICILLIN-POT CLAVULANATE]Drug Hzpuwif50-40-9535BhlavPremier Health Miami [facility] Work Phone: (20 sources)Cefaclor; Translations: [CEFACLOR]Drug Xzvzlfx88-44-0999EkecqMercy Health St. [facility]'s [facility] Work Phone: (20 sources)Sulfamethoxazole / Trimethoprim; Translations: [SULFAMETHOXAZOLE-TRIMETHOPRIM]Drug Rmwrddg61-50-3767DxwutxeEhbwjzcgjaSelect Medical Specialty Hospital [facility] Work Phone: (20 sources)Sulfonamides (Antibiotic); Translations: [SULFA (SULFONAMIDE ANTIBIOTICS)]Drug Yqhqxae89-28-1186RagknPremier Health Miami [facility] Hospital [facility] Work Phone: (9 sources)cefprozil; Translations: [CEFPROZIL]Drug Vlmxppg92-66-4075RmuxSelect Medical [facility] Rehabilitation Hospital Work Phone: (20 sources)Dextromethorphan; Translations: [DEXTROMETHORPHAN HBR]Drug Allergy 69-73-2421BpifJizvglnlbcUniversity Hospitals [facility] Work Phone: (9 sources)guaiFENesin; Translations: [GUAIFENESIN]Drug Jqnvxno32-10-0069ShraSelect Medical TriHealth Rehabilitation Hospital Work Phone: (9 sources)Penicillin; Translations: [PENICILLIN]Drug Ybskgwo28-42-1343MfpqSelect Medical TriHealth Rehabilitation Hospital Work Phone: (20 sources)Penicillin G; Translations: [PENICILLIN G]Drug Ihcnuob05-07-2919QrncSelect Medical TriHealth Rehabilitation Hospital Work Phone: (20 sources)Pseudoephedrine; Translations: [PSEUDOEPHEDRINE]Drug Allergy 46-07-1006PvztLxqrtqfjnzUniversity Hospitals [facility] Work Phone: (20 sources)Tetracycline; Translations: [TETRACYCLINE]Drug Keogxaa40-82-4459 [facility] Work Phone: (20 sources)PSEUDOEPHEDRINE-IBUPROFEN; Translations: [PSEUDOEPHEDRINE-IBUPROFEN] Propensity to adverse reactions to drug (disorder)31-68-4300IfvriBWAdena Pike Medical [facility] (18 sources)Cefuroxime; Translations: [cefuroxime]Drug Ktmeffg53-98-0626snddRiverside Methodist Hospital (20 sources)erythromycin base; Translations: [erythromycin base]Allergy to manmpsfnk46-56-0499CzpyWkyneqexzCrystal Clinic Orthopedic Center (20 sources)CefprozilAllergy to sgyvwhfqu89-03-8145AglyAKIQ Healthcare (20 sources)FluconazoleAllergy to ukkrofrvm55-73-2634EJVW Healthcare (20 sources)guaiFENesinDrug Bcjgbon30-82-3896CsnvMDAO Healthcare (9 sources)FLUoxetine; Translations: [fluoxetine]Drug Cwfrxaa86-90-6964yhdsebgcp syndromeMercy Health – The Jewish Hospital (1 source)FluconazoleDrug Lilxjfx77-18-8183QxgryhzkhMercy Health – The Jewish Hospital Repository (1 source)SulfacetamideDrug Xbjldxf18-37-2281WkvfbqexhMercy Health – [facility] Repository Medications Current Medications MedicationDrug Class(es)DatesSig (Normalized)Sig (Original)acetaminophen 500 mg oral tablet (12 sources)take 1 tablet by mouth every six hours as needed for pain acetaminophen (Tylenol) 500 MG tablet Take 500 mg by mouth every 6 (six) hours if needed for mild pain Njfwpz15 hr buPROPion hydrochloride 100 mg extended release oral tablet (20 sources)AminoketoneStart: 12-24-2022 End: 41-45-6525akkx 1 tablet by mouth three times dailybuPROPion (Wellbutrin) 75 mg tablet Indications: Moderate episode of recurrent major depressive disorder (CMS/HCC) Take 1 tablet (75 mg) by mouth 3 times a day. 90 tablet 11 12/24/2022 05/04/2023 Discontinued ()Start: 12-14-2022 End: 72-18-4800vopk 1 tablet by mouth twice dailybuPROPion SR (Wellbutrin SR) 100 mg 12 hr tablet Indications: Moderate episode of recurrent major depressive disorder take 1 tablet by mouth twice a day (DON'T CRUSH) 30 tablet 12/30/2022 ActiveStart: 12-14-2022 End: 43-10-9845qdda 1 tablet by mouth twice dailybuPROPion (Wellbutrin) 75 mg tablet Indications: Moderate episode of recurrent major depressive disorder (CMS/HCC) take 1 tablet by mouth twice a day 30 tablet 0 12/30/2022 05/04/2023 Discontinued ()Start: 09-28-2022 End: 40-82-7470piULMKcnt XL (Wellbutrin XL) 150 MG 24 hr tablet 09/28/2022 10/20/2023 DiscontinuedStart: 08-13-2020 End: 71-44-0946yqwj 1 tablet by mouth once daily in the morningBupropion Hcl (Wellbutrin Xl) 150 mg Tablet Extended Release 24 Hr Discontinued 150 MG PO Every morning June 19, 2021 12:00am June 27, 2023 2:59pmtake 1 tablet by mouth every twelve hoursWellbutrin SR 150 MG Oral Tablet Extended Release 12 Hour Quantity: 0 Refills: 0 Ordered: 06-Jun-2020 DO ActiveDigestive Enzymes capsule (1 source)Start: 81-50-6898zlan 1 capsule by mouth once daily at mealtime Digestive Enzymes capsule Active 1 CAP PO Daily December 12, 2024 12:00am administer with food; swallow whole; do not crush/chew/dissolve/break/cut Complies with drug therapyFLUoxetine 10 mg oral capsule (12 sources)Serotonin Reuptake InhibitorStart: 04-05-2024 End: 97-65-8282IUUkyqdifv (PROzac) 10 MG capsule 10 mg 04/05/2024 07/06/2024 Discontinued (Therapy completed)Start: 11-30-2019 End: 71-69-4792SRQjnw 20 MG Oral Capsule Refills: 0 Start : 30-Nov-2019 Active fluticasone propionate 0.05 mg/actuat metered dose nasal spray (20 sources)CorticosteroidStart: 73-42-7349Xlunrtprwca Propionate 50 mcg/actuation spray,suspension Active 2 SPRAY INTRANASAL Daily November 23, 2023 1:45pm F Complies with drug therapyStart: 06-27-2023 End: 38-98-9676xqhc 2 spray(s) nasal route once dailyFluticasone Propionate 50 mcg/actuation spray,suspension Discontinued 2 SPRAY INTRANASAL Daily June 27, 2023 12:00am November 23, 2023 1:46pm FreeTextSi sprays each nostril Nasally Once a day; Note: Source Status: Refill; Refills: 11; Provider: Nilay Thomas Start: 09-29-2022 End: 67-84-9594szwolcjitfu (Flonase) 50 MCG/ACT nasal spray 09/29/2022 07/06/2024 Discontinued (Therapy completed)Start: 09-29-2022 End: 63-81-0277pnrvedkmjoe (Flonase) 50 mcg/actuation nasal spray 09/29/2022 12/30/2023 Discontinued (Therapy completed)Start: 81-29-9387swfs 2 spray(s) nasal route once dailyFluticasone Propionate 50 MCG/ACT 2 sprays each nostril Nasally Once a day for 30 days Sep,ctiveStart: 79-55-5713gnns 2 spray(s) nasal route once dailyFluticasone Propionate 50 MCG/ACT 2 sprays each nostril Nasally Once a day for 30 days Sep,ctiveLORazepam 0.5 mg oral tablet (14 sources)BenzodiazepineStart: 04-18-2024 End: 46-97-8231kogh 1 tablet by mouth twice daily as needed for anxietyLorazepam (Ativan) 0.5 mg tablet Active 0.5 MG PO Twice daily as needed for anxiety 14 7 0 December 10, 2024 8:59am Anxiety Anxiety disorder, unspecified Complies with drug therapymecobalamin 1 mg chewable tablet (1 source)Start: 53-20-0915ksfi 1 tablet by mouth every other dayMecobalamin (Vitamin B12) 1,000 mcg tablet,chewable Active 1000 MCG PO .COMPLEX 8 October 12:00am 1,000 mcg orally 2 days a week; Complies with drug therapymultivitamin tablet (2 sources)take 1 tablet by mouth once dailymultivitamin tablet Take 1 tablet by mouth once daily. Activenebivolol 2.5 mg oral tablet (1 source)Start: 96-08-1830ewxgedwdw (Bystolic) 2.5 mg tablet Indications: Neurocardiogenic pre-syncope , Palpitations Take one tablet as needed for palpitations. Do not exceed 24 hr 15 tablet 2 12/31/2024 Activenitrofurantoin, macrocrystals 25 mg / nitrofurantoin, monohydrate 75 mg oral capsule (7 sources)Nitrofuran AntibacterialStart: 07-06-2024 End: 64-42-9603mqzs 1 capsule by mouth in the morningnitrofurantoin, macrocrystal-monohydrate, (Macrobid) 100 MG capsule Indications: Urinary tract infection with hematuria, site unspecified Take 1 capsule (100 mg) by mouth in the morning and 1 capsule(100 mg) before bedtime. Do all this for 7 days. 14 capsule 07/17/2024 07/24/2024 Activepantoprazole 40 mg delayed release oral tablet (2 sources)Proton Pump InhibitorStart: 12-43-4633tpci 1 tablet by mouth in the morningpantoprazole (ProtoNix) 40 mg EC tablet Take 1 tablet (40 mg) by mouth early in the morning.. 12/12/2024 ActivePenicillin (5 sources)Start: 83-89-4628wjbt 1 tablet by mouth three times dailyPenicillin VK 500mg 500mg 1 tablet Oral tid for 10 days Mar, ActiveStart: 29-47-3387sxtn 1 tablet by mouth three times dailyPenicillin VK 500mg 500mg 1 tab(s) Oral 3 times a day for 10 day(s) Jan, ActivePrenatal (8 sources) Active Completed/Discontinued Medications MedicationDrug Class(es)DatesSig (Normalized)Sig (Original)alpha-tocopherol acetate 30 unt / ascorbic acid 100 mg / beta carotene 1000 unt / calcium mopsfqsyp345 mg / calcium pantothenate 7 mg / cholecalciferol 400 unt / docusate sodium 25 mg / ferrous fumarate 29 mg / folic acid 1 mg / niacinamide 15 mg / pyridoxine hydrochloride 20 mg / riboflavin 3 mg / thiamine 3 mg / vitamin b12 0.012 mg / zinc oxide 20 mg oral tablet (20 sources)Vitamin B12, Vitamin D, Vitamin CStart: 11-30-2019 End: 68-10-1970FBB 119-iron fum-folic acid ( 19) 29 mg iron- 1 mg tablet 19 Oral Tablet Refills: 0 Start : 30-Nov-2019 Active 11/30/2019 12/30/2023 Discontinued (Therapy completed)ARGININE HCL, L-ARGININE, ORAL (4 sources) End: 50-52-4715NWBJSEXP HCL, L-ARGININE, ORAL Take 200 mg by mouth. 12/30/2023 Discontinued (Therapy completed)ARGININE HCL, L-ARGININE, ORAL Take 200 mg by mouth. ActiveARGININE HCL, L-ARGININE, ORAL Take 200 mg by mouth. 0 ActiveBD Disp Lyons 27G X 1/2 (1 source)Start: 92-66-8302PR Disp Lyons 27G X 1/2 USE DIRECTED. Quantity: 1 Refills: 2 Kelsi Espitia Start : 18-Jan-2020 ActiveBD Disp Lyons 27G X 1/2 (1 source)Start: 78-89-8087NK Disp Lyons 27G X 1/2 USE DIRECTED. Quantity: 1 Refills: 2 Kelsi Espitia Start : 18-Jan-2020 Activecholecalciferol 0.025 mg oral tablet (20 sources)Vitamin DStart: 09-29-0081Vxhhnkb D 25 MCG (1000 UT) Oral Tablet Quantity: 0 Refills: 0 Ordered: 30-Nov-2019 DO Start : 30-Nov-2019 ActiveStart: 11-17-2017 End: 64-50-2425ynqi 5 capsules by mouth once dailycholecalciferol (Vitamin D-3) 25 MCG (1000 UT) capsule Take 5 capsules (125 mcg) by mouth once daily. 11/17/2017 12/30/2023 Discontinued (Therapy completed) End: 97-44-0280miiaxtbefdcwiyi (Vitamin D-3) 5,000 Units tablet Take by mouth. 12/30/2023 Discontinued (Therapy completed)chorionic gonadotropin 32266 unt/ml injectable solution (20 sources)GonadotropinStart: 16-19-0786aqyjuh 03038 [IU] by intramuscular injection onceChorionic Gonadotropin 33997 UNIT Intramuscular Solution Reconstituted USE DIRECTED. Quantity: 1Refills: 2 Ordered: 21-Jan-2020 Kelsi Espitia Start : 18-Jan-2020 Active Will need later next week. thanks. DianeStart: 87-43-9463Uyyfefj 94152 UNIT Intramuscular Solution Reconstituted Inject 10,000 IU's SQ as directed to be used as HCG Trigger Quantity: 1 Refills: 1 Ordered: 30-Jul-2020 Viviana Becker Start : 8-Zvj-7291XngzpjexlnfWODAR citrate 50 mg oral tablet (4 sources)Estrogen Agonist/AntagonistStart: 09-13-2018 End: 48-29-7289kbybfZDOYD (Clomid) 50 mg tablet Take 3 tabs by mouth cycle day 5-9. 09/13/2018 12/30/2023 Discontinued (Therapy completed)ubidecarenone 200 mg oral capsule (20 sources)Start: 54-08-6355ThS74 200 MG Oral Capsule Quantity: 0 Refills: 0 Ordered: 30-Nov-2019 DO Start : 30-Nov-2019 ActiveStart: 16-00-3483HjL56 200 MG Oral Capsule Refills: 0 DO Start : 30-Nov-2019 Active End: 79-42-5506ghid 6 capsules by mouth once dailycoenzyme Q-10 100 mg capsule Take 6 capsules (600 mg) by mouth once daily. 12/30/2023 Discontinued (Therapy completed)Docosahexaenoate (4 sources)Start: 06-15-2019 End: 29-48-6399prva 1 tablet by mouth once dailyDOCOSAHEXAENOIC ACID ORAL TAKE 1 TAB & 1 CAPSULE BY MOUTH ONE TIME A DAY DIRECTED Discontinued (Therapy completed)Start: 03-18-8668kecz 1 tablet by mouth once dailyDOCOSAHEXAENOIC ACID ORAL TAKE 1 TAB & 1 CAPSULE BY MOUTH ONE TIME A DAY DIRECTED 06/15/2019ActiveStart: 86-87-0325cbmz 1 tablet by mouth once daily DOCOSAHEXAENOIC ACID ORAL TAKE 1 TAB & 1 CAPSULE BY MOUTH ONE TIME A DAY DIRECTED 0 06/15/2019 Activedocusate sodium 100 mg oral capsule (19 sources)Start: 06-22-2021 End: 46-15-8665xwcr 1 capsule by mouth twice daily as needed for constipation Docusate Sodium (Colace) 100 mg capsule Discontinued 100 MG PO Twice daily as needed for constipation 60 2 June 22, 2021 10:29am June 27, 2023 2:59pmestradiol 2 mg oral tablet (20 sources)EstrogenStart: 71-53-1308tucbk 2 doses transdermal route two times weeklyEstradiol 0.1 MG/24HR Transdermal Patch Twice Weekly PLACE 2 PATCH Other Quantity: 1 Refills: 0 Ordered: 17-Apr-2020 Marie Ocampo MD Start : 17-Apr-[address] 2 patches at same ; change twice weeklyStart: 02-15-2019 End: 17-07-1637avoo 1 tablet by mouth twice dailyEstradiol 2 mg Tablet Discontinued 2 MG PO Twice daily February 15, 2019 1:00am June 22, 2021 10:3 0am NOT PO....INSERT PILL VAGINALLYfamotidine 20 mg oral tablet (4 sources)Histamine-2 Receptor AntagonistStart: 06-25-2022 End: 11-29-5076oped 1 tablet by mouth twice dailyfamotidine (Pepcid) 20 mg tablet Take 1 tablet (20 mg) by mouth 2 times a day. 06/25/2022 12/30/2023 Discontinued (Therapy completed)fluconazole 150 mg oral tablet (2 sources)Azole AntifungalStart: 07-17-2024 End: 94-59-2326dgxinrldlpa (Diflucan) 150 MG tablet Indications: Yeast infection Take 1 tablet (150 mg) by mouth 1(one) time for 1 dose Repeat in 7 days if symptoms persist. 2 tablet 07/17/2024 07/17/2024 Expiredfludrocortisone acetate 0.1 mg oral tablet (20 sources)Start: 50-45-9588Pldruhkgcdxumno Acetate 0.1 MG Oral Tablet Quantity: 0 Refills: 0 Ordered: 30-Nov-2019 DO Start : 30-Nov-2019 ActiveStart: 06-26-2017 End: 94-78-2710vzht 1 tablet by mouth twice dailyFludrocortisone 0.1 mg tablet Discontinued 0.1 MG PO Twice daily June 26, 2017 12:00am June 27, 2023 3:00pm folic acid 0.8 mg oral tablet (20 sources)Start: 26-49-4017Wnkfp Acid 800 MCG Oral Tablet Quantity: 0 Refills: 0 Ordered: 30-Nov-2019 DO Start : 30-Nov-2019 ActiveStart: 07-20-2019 End: 33-59-8408ekjh 1 tablet by mouth once dailyfolic acid (Folvite) 800 mcg tablet Take 1 tablet (800 mcg) by mouth once daily. 07/20/2019 12/30/2023 Discontinued (Therapy completed)0.72 ml follitropin beta 833 unt/ml cartridge (20 sources)Start: 63-37-5763Juagctreg AQ 600 UNT/0.72ML Subcutaneous Solution Inject 375 IU's SQ daily as directed Quantity: 2 Refills: 2 Ordered: 30-Jul-2020 Viviana Becker Start : 30-Jul-2020 ActiveStart: 58-14-2578gmiwab 200 [IU] by subcutaneous injection once dailyFollistim AQ 300 UNT/0.36ML Subcutaneous Solution INJECT 200 UNIT Daily Quantity: 3 Refills: 3 Ordered: 28-Dec-2019 Kelsi Espitia Start : 27-Dec-2019 ActiveHomeopathic Products ([employer]) sublingual tablet (4 sources) End: 52-57-8585Disollnhcig Products ([employer]ts) sublingual tablet Place under the tongue 07/17/2024 DiscontinuedHomeopathic Products ([employer]ts) sublingual tablet Place under the tongue Activehydrocortisone 10 mg/ml / neomycin 3.5 mg/ml / polymyxin b 45323 unt/ml otic suspension (8 sources)Aminoglycoside Antibacterial, Polymyxin-class Antibacterial, CorticosteroidStart: 01-27-2022 End: 98-42-5518bwfxgsmo-polymyxin-HC (Cortisporin) 3.5-10,000-1 mg/mL-unit/mL-% otic suspension INSTILL 3 DROPS INTO RIGHT EAR THREE TIMES A DAY FOR 7 DAYS 01/27/2022 12/30/2023 Discontinued (Therapy completed)Start: 01-27-2022 Qkqeiylh-Mchusdgpm-LH 3.5-58370-9 3 drops right ear Three times a day for 7 days Jan, Activeibuprofen 600 mg oral tablet (19 sources)Nonsteroidal Anti-inflammatory DrugStart: 06-22-2021 End: 20-90-8200budx 1 tablet by mouth every six hours as needed for pain Ibuprofen 600 mg tablet Discontinued 600 MG PO Q6H as needed for pain 30 June 22, 2021 12:00am June 27, 2023 3:00pmLactobacillus acidophilus (5 sources) End: 22-51-5560yumo 1 capsule by mouth once dailyLactobacillus acidophilus (PROBIOTIC ORAL) Take 1 capsule by mouth once daily. 12/30/2023 Discontinued (Therapy completed)take 1 capsule by mouth once dailyLactobacillus acidophilus (PROBIOTIC ORAL) Take 1 capsule by mouth once daily. Activetake 1 capsule by mouth once dailyLactobacillus acidophilus (PROBIOTIC ORAL) Take 1 capsule by mouth once daily. 0 Activeleuprolide acetate 5 mg/ml injectable solution (18 sources)Gonadotropin Releasing Hormone Receptor AgonistStart: 07-30-2020 Leuprolide Acetate 1 MG/0.2ML Injection Kit Draw up 0.5 ml of Leuprolide and inject into the bacteriostatic NaCl as directed per provider for Microdose Lupron Quantity: 1 Refills: 1 Ordered: 30-Jul-2020 Raffy GUTIERREZViviana Start : 30-Jul-2020 Activeloratadine 10 mg oral tablet (20 sources)Start: 69-89-5045Uddsjmxw 10 MG Oral Tablet Quantity: 0 Refills: 0 Ordered: 30-Nov-2019 DO Start : 30-Nov-2019 ActiveStart: 06-26-2017 End: 68-25-3765dsvt 1 tablet by mouth once dailyLoratadine (Claritin) 10 mg Tablet Discontinued 10 MG PO Daily June 26, 2017 12:00am June 27, 2023 3:00pm Magnesium (4 sources) End: 19-68-5075STRIBHAHG PO Take by mouth 07/17/2024 DiscontinuedMAGNESIUM PO Take by mouth Activemagnesium oxide 400 mg oral tablet (8 sources) End: 69-47-4230rrts 1 tablet by mouth once dailymagnesium oxide (Mag-Ox) 400 mg tablet Take 1 tablet (400 mg) by mouth once daily. 12/30/2023 Discontinued (Therapy completed)24 hr metFORMIN hydrochloride 750 mg extended release oral tablet (4 sources)BiguanideStart: 08-08-2019 End: 60-22-0137nxgLNRWGK XR (Glucophage-XR) 750 mg 24 hr tablet 08/08/2019 12/30/2023 Discontinued (Therapy completed)methylPREDNISolone 16 mg oral tablet (4 sources)CorticosteroidStart: 04-26-2018 End: 70-85-8653nxfd 1 tablet by mouth once dailymethylPREDNISolone (Medrol) 16 mg tablet Take 1 tablet (16 mg total) by mouth once daily. 04/26/2018 12/30/2023 Discontinued (Therapy completed)ondansetron 4 mg disintegrating oral tablet (20 sources)Serotonin-3 Receptor AntagonistStart: 06-25-2022 End: 00-33-4648txfzrgvxkca ODT (Zofran-ODT) 4 mg disintegrating tablet dissolve 1 tablet ON TONGUE every 4 hours if needed for nausea OR vomiting 06/25/2022 12/30/2023 Discontinued (Therapy completed)Start: 02-15-2019 End: 43-12-0299jyhn 1 tablet by mouth every six hours as needed for nausea and vomitingOndansetron 4 mg tablet,disintegrating Discontinued 4 MG PO Q6H as needed for nausea and vomiting 14 0 February 15, 2019 1:00am June 22, 2021 10:30ampenicillin v potassium 500 mg oral tablet (20 sources)Start: 05-04-2024 End: 61-23-3028xrdg 1 tablet by mouth three times dailyPenicillin V Potassium 500 mg tablet Discontinued 500 MG PO Three times daily 21 7 0 May 25, 2024 1:45pm July 24, 2024 12:46pmStart: 02-03-2024 End: 83-95-8604cmsy 1 tablet by mouth three times dailyPenicillin V Potassium 500 mg tablet Discontinued 500 MG PO Three times daily 30 10 0 February 03, 2024 10:55am April 18, 2024 12:09pmStart: 06-27-2023 End: 51-19-9434ofjw 1 tablet by mouth three times dailyPenicillin V Potassium 500 mg tablet Discontinued 500 MG PO Three times daily 30 10 0 June 27, 2023 12:00am November 23, 2023 1:45pmpentoxifylline 400 mg extended release oral tablet (20 sources)Blood Viscosity ReducerStart: 85-46-6874lqii 1 tablet by mouth twice daily at mealtimePentoxifylline ER 400 MG Oral Tablet Extended Release TAKE 1 TABLET BY MOUTH TWICE A DAY WITH MEALSQuantity: 60 Refills: 0 Ordered: 17-Mar-2020 Shaila Conley MD Start : 28-Dec-2019 ActivePnv Cmb#95-Ferrous Fumarate-Fa () 28 mg iron- 800 mcg Tablet (15 sources)Start: 06-26-2017 End: 85-36-3198mkqt 1 tablet by mouth once dailyPnv Cmb#95-Ferrous Fumarate-Fa () 28 mg iron- 800 mcg Tablet Discontinued 1 TAB PO Daily June 26, 2017 12:00am April 18, 2024 12:09pmStart: 06-26-2017 End: 03-15-4231gpse 1 tablet by mouth once dailyPnv Cmb#95-Ferrous Fumarate-Fa () 28 mg iron- 800 mcg Tablet Discontinued 1 TAB PO Daily June 25, 2017 11:00pm April 18, 2024 11:09amStart: 72-05-9512dvqr 1 tablet by mouth once dailyPnv Cmb#95-Ferrous Fumarate-Fa () 28 mg iron- 800 mcg Tablet Active 1 TAB PO Daily June 11:00pmStart: 94-59-2667idwu 1 tablet by mouth once dailyPnv Cmb#95-Ferrous Fumarate-Fa () 28 mg iron- 800 mcg Tablet Active 1 TAB PO Daily June 12:00amPnv No.95-Ferrous Fumarate-Fa () 28 mg iron- 800 mcg Tablet (4 sources)Start: 06-26-2017 End: 04-83-7689love 1 tablet by mouth once dailyPnv No.95-Ferrous Fumarate-Fa () 28 mg iron- 800 mcg Tablet Discontinued 1 TAB PO Daily 2017 12:00am April 18, 2024 12:09pmprasterone 25 mg oral tablet (20 sources)Start: 51-86-3623WCMY 25 MG Oral Tablet Quantity: 0 Refills: 0 Ordered: 30-Nov-2019 DO Start : 30-Nov-2019 ActivepredniSONE 20 mg oral tablet (20 sources)Start: 04-25-2023 End: 54-93-8981lcys 1 tablet by mouth once daily at mealtimePrednisone 20 mg tablet Discontinued 0 PO Daily 18 9 0 April 25, 2023 5:30pm June 27, 2023 3:00pm 20 MG 3 a day x3 days, then take 2 a day x3 days and then 1 a day x3 days with food or milk. orally daily; Vit-Fe Fumarate-FA ( PO) (4 sources) End: 66-66-7259Xdntilmz Vit-Fe Fumarate-FA ( PO) Take by mouth 07/17/2024 DiscontinuedPrenatal Vit-Fe Fumarate-FA ( PO) Take by mouth ActiveProbiotic CAPS (3 sources)Probiotic CAPS TAKE 1 CAPSULE Daily Quantity: 0 Refills: 0 Ordered: 31-Aug-2022 DO Activeprogesterone 200 mg oral capsule (20 sources)ProgesteroneStart: 07-16-2019 End: 47-21-9960toqx 2 capsules by mouth once dailyprogesterone (Prometrium) 200 mg capsule Take 2 capsules (400 mg) by mouth once daily. 07/16/2019 12/30/2023 Discontinued (Therapy completed)Start: 02-15-2019 End: 31-92-1483uzxf 1 capsule by mouth once daily at bedtimeProgesterone Micronized 200 mg Capsule Discontinued 400 MG PO Daily at bedtime February 15, 2019 1:00am June 22, 2021 10:30amStart: 02-15-2019 End: 70-75-1885nvzjxj 1 mL by intramuscular injection every other day Progesterone 50 mg/mL Oil Discontinued 2 ML IM As Directed February 15, 2019 1:00am June 220:30am EVERY OTHER DAYStart: 02-15-2019 End: 12-72-0387Rwlorvftxgyu Micronized (Endometrin) 100 mg Insert Discontinued 100 MG VAGINAL Three times daily February 15, 2019 1:00am June 22, 2021 10:30amStart: 02-15-2019 End: 46-63-5715wlgy 400 mg by mouth once daily at bedtimeProgesterone Micronized Discontinued 400 MG PO Daily at bedtime February 15, 2019 1:00am June 10:30amProgesterone 200 MG suppository (6 sources)Start: 06-29-2024 End: 23-46-6719Hsodohirgtls 200 MG suppository Indications: History of miscarriage, currently , first trimester Insert 1 suppository into the vagina at bedtime 30 suppository 3 06/29/2024 07/17/2024 DiscontinuedStart: 98-74-6868Lztoatbiimcx 200 MG suppository Indications: History of miscarriage, currently , first trimester Insert 1 suppository into the vagina at bedtime 30 suppository 3 06/29/2024 Activesertraline 25 mg oral tablet (20 sources)Serotonin Reuptake InhibitorStart: 01-30-2024 End: 46-15-8486jwrd 0.5 tablet by mouth once daily, then take 1 tablet by mouth once dailySertraline (Zoloft) 25 mg tablet Discontinued 0 PO Daily 15 30 January 30, 2024 12:50pm April 18, 2024 12:10pm take 1/2 of a 25 MG tablet orally daily;Start: 11-30-2023 End: 38-25-8937ekqy 1 tablet by mouth once dailySertraline (Zoloft) 25 mg tablet Discontinued 25 MG PO Daily 30 November 30, 2023 3:11pm 2023 12:51pmStart: 06-27-2023 End: 50-84-2200Kzdgilqjpa (Zoloft) 100 mg tablet Discontinued 50 MG PO Daily June 27, 2023 2:59pm June 27, 2023 3:04pmStart: 06-27-2023 End: 53-56-0665cujj 1 tablet by mouth once dailySertraline (Zoloft) 50 mg tablet Discontinued 50 MG PO Daily November 23, 2023 1:45pm November 30, 2023 11:20am Start: 07-15-2022 End: 95-01-7017blsaotyidi (Zoloft) 50 MG tablet 75 mg. 07/15/2022 07/06/2024 Discontinued (Therapy completed)Start: 01-26-2022 End: 59-67-3997ptve 1 tablet by mouth once dailysertraline (Zoloft) 25 mg tablet Indications: ADEN (generalized anxiety disorder) take 1 tablet by mouth once daily 30 tablet 0 01/12/2023 ActiveStart: 06-19-2021 End: 51-51-9001rbjl 1 tablet by mouth once dailySertraline (Zoloft) 100 mg Tablet Discontinued 100 MG PO Daily June 19, 2021 12:00am June 27, 2023 3:03pmStart: 08-12-2020 End: 05-59-2387fpfh 1.5 tablets by mouth once daily in the morning, then take 5 tablets by mouth every monthsertraline (Zoloft) 50 mg tablet Indications: ADEN (generalized anxiety disorder) Take 1.5 tablets (75 mg) by mouth once daily in the morning. And 5 extra tab per month during luteal phase 135 tablet 05/04/2023 12/30/2023 Discontinued (Dose adjustment)Start: 64-29-9966twid 1 tablet by mouth once dailySertraline HCl - 50 MG Oral Tablet TAKE 1 TABLET BY MOUTH EVERY DAY Quantity: 90 Refills: 0 Ordered: 22-Jan-2021 Marvin Hancock Start : 12-Aug-2020 ActiveStart: 66-30-3153mdks 0.5 tablet by mouth once daily, then take 1 tablet by mouth once dailySertraline HCl - 50 MG Oral Tablet TAKE 1/2 TABLET DAILY for 7 days and increase to 1 tablet daily Quantity: 30 Refills: 2 Ordered: 12-Aug-2020 Marvin Hancock Start : 12-Aug-2020 Activesodium chloride 9 mg/ml injectable solution (18 sources)Start: 43-18-4380Uurksr Chloride Bacteriostatic 0.9 % Injection Solution After adding [...] Ordered: 30-Jul-2020 Viviana Becker Start : 30-Jul-2020 ActiveToradol 30 mg/ml (8 sources)Start: 21-01-7420Jjlradb 30 mg/ml Jan, 30 mgtraMADol hydrochloride 50 mg oral tablet (19 sources)Opioid AgonistStart: 06-22-2021 End: 55-72-0385ffdc 1 tablet by mouth every six hours as needed for painTramadol 50 mg tablet Discontinued 50 MG PO Q6H as needed for pain 30 7 0 June 22, 2021 12:00am 2023 3:01pm Status post delivery History of uterine scar from previous surgeryvitamin e 450 mg oral capsule (20 sources)Start: 62-82-3420qnmb 1 capsule by mouth once dailyVitamin E 1000 UNIT Oral Capsule TAKE 1 CAPSULE Daily Quantity: 30 Refills: 1 Ordered: 28-Dec-2019 Shaila Conley MD Start : 28-Dec-2019 Active Problems Active Problems Problem ClassificationProblemDateDocumented DateEpisodic/ChronicAdjustment disorders (20 sources)Adjustment disorder; Translations: [Adjustment disorder, unspecified]Onset: 880753-50-4720CovlhbnYilaafr disorders (20 sources)Mixed anxiety and depressive disorder; Translations: [Anxiety state, unspecified]Onset: 92-94-3710WxhbxmpPcwlwmwb of urinary tract (9 sources)Kidney stone; Translations: [Calculus of kidney]76-49-3820Jnlayhqu Cardiac dysrhythmias (7 sources)Palpitations; Translations: [Palpitations]Onset: EpisodicConditions associated with dizziness or vertigo (3 sources)Conditions associated with dizziness or vertigoDeficiency and other anemia (6 sources)Anemia; Translations: [Anemia, unspecified]87-07-4908Isztxegg Delirium, dementia, and amnestic and other cognitive disorders (6 sources)Postconcussion syndrome; Translations: [Postconcussional syndrome] ChronicDiabetes mellitus without complication (7 sources)Hyperglycemia; Translations: [Hyperglycemia, unspecified]Onset: 038167-47-6502LszidkysDtswarh (12 sources)Ectopic ; Translations: [Unspecified ectopic without intrauterine ]Onset: 784170-12-6438AvfbuclaOogayyfijqxpj (20 sources)Endometriosis (clinical); Translations: [Endometriosis, site unspecified]Onset: 807094-68-8891SpvmkbnFtypav infertility (20 sources)Female infertility; Translations: [Infertility, female, of unspecified origin]Onset: 923634-15-8468RbrnaunDqdgj of unknown origin (1 source)Fever, unspecifiedEpisodicHeadache; including migraine (20 sources)Migraine; Translations: [Migraine, unspecified, not intractable, without status migrainosus]Onset: 791721-11-2134ImbxqleAqposnfk; including migraine (2 sources)Headache disorder; Translations: [Other headache syndrome]04-13-2024 EpisodicImmunizations and screening for infectious disease (20 sources)Patient encounter status; Translations: [Screening examination for venereal disease]77-15-3763KrbaaewpEdkhsxyfff infection (1 source)Viral intestinal infection, unspecified; Translations: [VIRAL INTESTINAL INFECTION UNSPEC]Onset: 72-07-6702QcnejkfyAljbiyjalvdu injury (1 source)Concussion with loss of consciousness of unspecified duration, initial encounterEpisodicMalaise and fatigue (7 sources)Other fatigue; Translations: [Fatigue]EpisodicMenstrual disorders (20 sources)Dysmenorrhea; Translations: [Dysmenorrhea]Onset: 12-12-2022 07-47-9837ZxaqvxtYylm disorders (20 sources)Recurrent major depressive episodes, moderate ; Translations: [Major depressive disorder, recurrent, moderate]Onset: hronic Mycoses (2 sources)Mycosis; Translations: [Candidiasis, unspecified]07-29-1179Vyaqkbqx Neoplasms of unspecified nature or uncertain behavior (2 sources)Neoplasm of skin; Translations: [Neoplasm of unspecified behavior of bone, soft tissue, and skin]13-40-7308GgchkoatNlcmkpdkqjfk breast conditions (6 sources)Mastodynia; Translations: [Mastodynia]57-45-0705QfnbjvxcUkspfcuuhyf chest pain (6 sources)Chest pain; Translations: [Chest pain, unspecified]Onset: 05-09-2024 91-82-7925WglldgxjPssicgajacq deficiencies (8 sources)Vitamin D deficiency; Translations: [Vitamin D deficiency, unspecified]ChronicOther aftercare (2 sources)Surgical follow-up; Translations: [Encounter for follow-up examination after completed treatment for conditions other than malignant neoplasm]21-16-2828QpwiqxvcCilfk and unspecified benign neoplasm (2 sources)Melanocytic nevi of other parts of face; Translations: [Benign neoplasm of skin of other and unspecified parts of face]19-15-4102ClkiooxoOcvex and unspecified benign neoplasm (2 sources)Melanocytic nevus of trunk; Translations: [Melanocytic nevi of trunk] 71-31-3182NmdsucqmEytfa and unspecified benign neoplasm (2 sources)Melanocytic nevus of upper limb; Translations: [Melanocytic nevi of unspecified upper limb, including shoulder]75-65-4182UuvjfdemXcowd and unspecified benign neoplasm (2 sources)Melanocytic nevus of lower limb; Translations: [Melanocytic nevi of unspecified lower limb, including hip]51-75-1410EvzbnaolNrqgd and unspecified benign neoplasm (2 sources)Dermatofibroma; Translations: [Other benign neoplasm of skin, unspecified]67-93-6073RebjgnrnSghev circulatory disease (1 source)Other specified symptoms and signs involving the circulatory and respiratory systemsEpisodicOther circulatory disease (20 sources)Low blood pressure; Translations: [Hypotension, unspecified]Onset: 347681-93-1761BachjdxxLjylr circulatory disease (2 sources)Hypotension, unspecified; Translations: [Hypotension, unspecified] Onset: 81-35-7463PqmetjaxOmxfd complications of ; puerperium affecting management of mother (1 source) delivery - delivered; Translations: [Encounter for delivery without indication]25-07-6630OjlvfbhrHiymc ear and sense organ disorders (1 source)Unspecified acute noninfective otitis externa, right earEpisodicOther endocrine disorders (8 sources)Hyperinsulinism; Translations: [Other hypoglycemia]ChronicOther endocrine disorders (4 sources)Polycystic ovary syndrome; Translations: [Polycystic ovarian syndrome]73-10-1582NnudtdcWgugv endocrine disorders (1 source)Polycystic ovarian syndrome; Translations: [Polycystic ovarian syndrome]Onset: 63-64-4764QfkgasmBsbhw endocrine disorders (2 sources)Disorder of endocrine system; Translations: [Endocrine disorder, unspecified]91-77-7156KfzpcyrwSyshf female genital disorders (20 sources)Pain in female genitalia on intercourse; Translations: [Unspecified dyspareunia]Onset: 310702-52-4022TjyzvrtOmxlc female genital disorders (2 sources)Abnormal uterine bleeding; Translations: [Abnormal uterine and vaginal bleeding, unspecified]93-77-5541XqkqbcyBoduo hereditary and degenerative nervous system conditions (12 sources)Restless legs; Translations: [Restless legs syndrome]05-07-2024 ChronicOther hereditary and degenerative nervous system conditions (8 sources)Restless legs syndrome; Translations: [Restless legs syndrome (RLS)] 93-20-3853NpntwreNruga hereditary and degenerative nervous system conditions (14 sources)Serotonin syndrome; Translations: [Serotonin syndrome]07-06-2024 ChronicOther lower respiratory disease (12 sources)Dyspnea on exertion; Translations: [Other forms of dyspnea] 90-25-1823SzlugmitXjuxp lower respiratory disease (8 sources)Other forms of dyspnea; Translations: [Other respiratory abnormalities]09-06-5071JrsfwcdsRfafj nervous system disorders (8 sources)Sensory disorder of smell and/or taste; Translations: [Other disturbances of smell and taste]EpisodicOther nutritional; endocrine; and metabolic disorders (16 sources)Obesity; Translations: [Obesity, unspecified]Onset: 12-12-2022 35-61-1778RuydoxyQydfn nutritional; endocrine; and metabolic disorders (20 sources)Body mass index 30+ - obesity; Translations: [Body mass index (BMI) 32.0-32.9, adult]Onset: 051689-47-6279VuigcdiAdvlz nutritional; endocrine; and metabolic disorders (2 sources)Body mass index (BMI) 32.0-32.9, adult; Translations: [Body mass index (BMI) 32.0-32.9, adult]Onset: 43-96-8804RtwqumuOyaax nutritional; endocrine; and metabolic disorders (1 source)Obese class I; Translations: [Obesity, Class I, BMI 30-34.9]12-31-2024 ChronicOther nutritional; endocrine; and metabolic disorders (2 sources)Body mass index 25-29 - overweight; Translations: [Body Mass Index 27.0-27.9, adult]EpisodicOther nutritional; endocrine; and metabolic disorders (1 source)Overweight; Translations: [Overweight]EpisodicOther nutritional; endocrine; and metabolic disorders (1 source)Abnormal weight gainEpisodicOther nutritional; endocrine; and metabolic disorders (1 source)Weight gain; Translations: [Abnormal weight gain]61-33-8127Atwxtnrf Other skin disorders (2 sources)Lentigo simplex; Translations: [Other melanin hyperpigmentation] 99-74-5998ZfncgbxhYppnc upper respiratory disease (3 sources)Allergic rhinitis; Translations: [Allergic rhinitis, unspecified] ChronicOther upper respiratory disease (2 sources)Allergic rhinitis, unspecified; Translations: [Allergic rhinitis] ChronicOtitis media and related conditions (1 source)Otitis media, unspecified, right earEpisodicResidual codes; unclassified (20 sources)Never smoked tobacco; Translations: [Other specified health status] Onset: 054421-21-0091PddqhgecSpaspgsh codes; unclassified (12 sources)Insomnia; Translations: [Insomnia, unspecified]04-02-6655Kwzlcasd Residual codes; unclassified (8 sources)Insomnia, unspecified; Translations: [Insomnia, unspecified] 95-79-7580DcezbmbxNzteswqd codes; unclassified (2 sources)Other specified health status; Translations: [Other specified health status]Onset: 11-33-5943KbpjggftCqkwxlr (20 sources)Syncope; Translations: [Syncope and collapse]Onset: 12-12-2022 EpisodicUnclassified (1 source)CONTACT W/AND (SUSP) EXPOS COVID-19; Translations: [CONTACT W/AND (SUSP) EXPOS COVID-19]Onset: 24-21-3916Hpttrzajnbsh (14 sources)OB RemindersOnset: 356939-88-5068Lttveae tract infections (3 sources)Urinary tract infectious disease; Translations: [Urinary tract infection, site not specified]82-51-4166Izwssffl Past or Other Problems Problem ClassificationProblemDateDocumented DateEpisodic/ChronicAbdominal pain (20 sources)Abdominal pain; Translations: [Unspecified abdominal pain]Onset: 158953-23-9673WkuuqyemZdqmdrzecj associated with dizziness or vertigo (20 sources)Dizziness and giddiness; Translations: [Vertigo of central origin] Onset: 82-83-1333XicdlrfoFtuywicdsf and other anemia (20 sources)Iron deficiency anemia; Translations: [Iron deficiency anemia, unspecified]Onset: 692286-93-5107XpkxnntlMlyejvlacacsq symptoms and ill- defined conditions (2 sources)Dysuria; Translations: [Dysuria]17-62-7791DirqdrvyTxlsehxq; including migraine (1 source)Headache; including migraineHemorrhage during ; abruptio placenta; placenta previa (20 sources)Hemorrhage in early , unspecified; Translations: [First trimester bleeding]Onset: 466512-54-0198NexoelihGgfqwgepvywnu (20 sources)Localized enlarged lymph nodes; Translations: [Cervical lymphadenopathy]Onset: 33-42-5046OvxqoapzRtzbth and vomiting (20 sources)Nausea and vomiting; Translations: [Nausea with vomiting, unspecified]Onset: 596290-27-7720ZhxucdiqBoadx aftercare (1 source)Other truck terminal 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 (current) drug therapy; Translations: [OTH JAIL CURRENT DRUG THERAPY]Onset: 64-67-9753GyrcexhzBfbnp complications of ; puerperium affecting management of mother (20 sources)Deliveries by ; Translations: [Encounter for delivery without indication]Onset: 277294-40-4109VcjocmswMcyxe connective tissue disease (20 sources)Pelvic floor dysfunction; Translations: [Pelvic muscle wasting] Onset: 577895-39-6953RpeqmdthBafdi connective tissue disease (20 sources)Pelvic floor tension; Translations: [Urethral syndrome NOS]Onset: 197810-80-0339WlogbylpTmhbr gastrointestinal disorders (4 sources)Diarrhea, unspecified; Translations: [DIARRHEA UNSPECIFIED]Onset: 05-28-3267WapxnmdxQymzd lower respiratory disease (20 sources)Cough; Translations: [Cough]Onset: 413566-40-5171JcfsixvfPxxpx nervous system disorders (20 sources)Impairment of balance; Translations: [Other abnormalities of gait and mobility]Onset: 941323-28-3526ItstrduvSviik nutritional; endocrine; and metabolic disorders (20 sources)Weight increased; Translations: [Abnormal weight gain]Onset: 788421-38-0826KkwguwexOkrbe and delivery including normal (20 sources) test positive; Translations: [ examination or test, positive result]Onset: 081719-97-0568LyvtwzckLyswo screening for suspected conditions (not mental disorders or infectious disease) (20 sources)Possible ; Translations: [ examination or test, unconfirmed]Onset: 07-02-2024 Resolved: 042962-97-4672FmpxymzhPrxxb upper respiratory infections (20 sources)Acute sinusitis, unspecified; Translations: [Acute sinusitis]Onset: 40-57-9537KdgxpklgRmwrehmjojz; intervertebral disc disorders; other back problems (20 sources)Neck pain; Translations: [Cervicalgia]Onset: 376698-57-1317 EpisodicUnclassified (1 source)Patient encounter status; Translations: [Fertility testing] Unclassified (9 sources)Never smoked tobacco; Translations: [Never a smoker]NEGATED: Highlighted row has not occurred!Residual codes; unclassified (20 sources)DiseaseEpisodic Results Test NameValueInterpretationReference AzjutCspsigeiY6B with Estimated Average Gluon 64-39-1908Afoudtb [Mass/Vol]108 mg/dLNormNemours Children's Hospital [facility] Comment on above:Result Comment: PERFORMED BY: [facility] [place] [address] PATHOLOGIST SPRAY DYER JOHANN TRINIDAD M.D.Performed By: #### A1C WTH eA, CBC, CMP, MG, FE and TIBC, PREETI, [id number], TSH3 ####[facility]#### INSULIN ####[facility] ,A1C with Estimated Average GluOrdered By: Bakari Escalera on 01-87-0414TzO9k (Bld) [Mass fraction]5.4 %4.3-5.6FMemorial Health System Selby General HospitalComment on above:Result Comment: Increased risk for diabetes: 5.7 - 6.4 diabetes: >6.4 glycemic control for adults with diabetes: <7.0Performed By: #### A1C WTH eA, CBC, CMP, MG, FE and TIBC, PREETI, [id number], TSH3 ####[facility]#### INSULIN ####[facility] ,Increased risk for diabetes: 5.7 - 6.4diabetes: >6.4glycemic control for adults with diabetes: <7.0Alanine aminotransferase [Enzymatic activity/volume] in Serum or PlasmaOrdered By: Bakari Escalera on 94-81-2744RKC [Catalytic activity/Vol]11 U/L7-52[facility] HospitalComment on above:Performed By: #### A1C WTH eA, CBC, CMP, MG, FE and TIBC, PREETI, [id number], TSH3 #### [facility] [address] #### INSULIN #### [facility] ,Albumin [Mass/volume] in Serum or Plasma by Bromocresol green (BCG) dye binding methoOrdered By: Bakari Escalera on 82-68-0382Wuocmxl BCG dye [Mass/Vol]4.2 g/dL 3.5-5.7FMemorial Health System Selby General HospitalAlkaline phosphatase [Enzymatic activity/volume] in Serum or PlasmaOrdered By: Bakari Escalera on 18-43-0992OXQ [Catalytic activity/Vol]51 U/O16-824ZanrvajqpMercy Health – The Jewish HospitalComment on above:Performed By: #### A1C WTH eA, CBC, CMP, MG, FE and TIBC, PREETI, [id number], TSH3 #### [facility] [address] [place] [address] [place] #### INSULIN #### [facility] ,Aspartate aminotransferase [Enzymatic activity/volume] in Serum or Plasma Ordered By: Bakari Escalera on 67-08-6114RCR [Catalytic activity/Vol]12 U/FQnd29-86 [facility] HospitalComment on above:Performed By: #### A1C WTH eA, CBC, CMP, MG, FE and TIBC, PREETI, [id number], TSH3 #### [facility] [address] [place] [address] #### INSULIN #### [facility] ,Basophils [#/volume] in Blood by Automated countOrdered By: Bakari Escalera on 41-20-9218Mfzqedxnp (Bld) [#/Vol]0.1 10*3/uL0.0-0.2FMemorial Health System Selby General HospitalComment on above:Result Comment: PERFORMED BY: [place] [address] PATHOLOGIST SPRAY DYER JOHANN TRINIDAD M.D.Performed By: #### A1C WTH eA, CBC, CMP, MG, FE and TIBC, PREETI, [id number], TSH3 #### [address] #### INSULIN #### [facility] ,Basophils/100 leukocytes in Blood by Automated countOrdered By: Bakari Escalera on 81-11-4653Wkjvqafkl/100 WBC (Bld)0.7 %.[facility] HospitalComment on above:Performed By: #### A1C WTH eA, CBC, CMP, MG, FE and TIBC, PREETI, [id number], TSH3 #### [address] #### INSULIN #### [facility] ,Bilirubin.total [Mass/volume] in Serum or PlasmaOrdered By: Bakari Escalera on 42-09-6957Afbhyqusd [Mass/Vol]0.4 mg/dL0.3-1.0[facility] Comment on above:Performed By: #### A1C WTH eA, CBC, CMP, MG, FE and TIBC, PREETI, [id number], TSH3 #### [place] [address] [place] #### INSULIN #### [facility] ,Blood estimated average glucose determination by estimation from glycated hemoglobinOrdered By: Bakari Escalera on 61-64-7496Vwrraab glucose Estimated from glycated hemoglobin (Bld) [Mass/Vol]108 mg/dLMercy Health – The Jewish Hospital Calcium [Mass/volume] in Serum or PlasmaOrdered By: Bakari Escalera on 11-15-2024 Calcium [Mass/Vol]9.0 mg/dL8.6-10.3FMemorial Health System Selby General HospitalComment on above:Performed By: #### A1C WTH eA, CBC, CMP, MG, FE and TIBC, PREETI, [id number], TSH3 #### [facility] [address] [place] [address] [place] #### INSULIN #### [facility] ,Carbon dioxide, total [Moles/volume] in Serum or PlasmaOrdered By: Bakari Escalera on 72-34-6746ND5 [Moles/Vol]28.1 mmol/L21.0-31.0Mer[facility] The Jewish HospitalComment on above:Performed By: #### A1C WTH eA, CBC, CMP, MG, FE and TIBC, PREETI, [id number], TSH3 #### [facility] [address] [place] [address] [place] #### INSULIN #### [facility] ,Chloride [Moles/volume] in Serum or PlasmaOrdered By: Bakari Escalera on 98-90-7980Ecvbixyy [Moles/Vol]106 mmol/H65-496ZbtsrogbpMercy Health – The Jewish Hospital Comment on above:Performed By: #### A1C WTH eA, CBC, CMP, MG, FE and TIBC, PREETI, [id number], TSH3 #### [place] [address] [place] #### INSULIN #### [facility] ,Complete Blood Count Auto Diffon 42-21-8915Aiwd Corpuscular HGB Conc33.2 g/dL Arfzln07.0-35.0The [facility] Physician GroupComment on above:Performed By: #### A1C WTH eA, CBC, CMP, MG, FE and TIBC, PREETI, [id number], TSH3 #### [facility] [address] [place] [address] [place] #### INSULIN #### [facility] ,NRBC%0.2 /100{WBC}Normal0-0.5The [facility] Physician GroupComment on above: Performed By: #### A1C WTH eA, CBC, CMP, MG, FE and TIBC, PREETI, [id number], TSH3 #### [facility] [address] [place] [address] #### INSULIN #### [facility] ,White Blood Count7.3 [CFU]/mLNormal3.8-11.6The [facility] Physician GroupComment on above:Performed By: #### A1C WTH eA, CBC, CMP, MG, FE and TIBC, PREETI, [id number], TSH3 #### [address] #### INSULIN #### [facility] ,Comprehensive Metabolic Panelon 17-77-7311Elgwwmk [Mass/Vol]4.2 g/dLNormal 3.5-5.7The [facility] Physician GroupComment on above:Performed By: #### A1C WTH eA, CBC, CMP, MG, FE and TIBC, PREETI, [id number], TSH3 #### [facility] [address] [place] [address] [place] #### INSULIN #### [facility] ,GFR/1.73 sq M.predicted MDRD (S/P/Bld) [Vol rate/Area]mL/min/{1.73_m2}NormalThe [facility] Physician GroupComment on above:Performed By: #### A1C WTH eA, CBC, CMP, MG, FE and TIBC, PREETI, [id number], TSH3 #### [facility] [address] [place] [address] [place] #### INSULIN #### [facility] ,Creatinine [Mass/volume] in Serum or PlasmaOrdered By: Bakari Escalera on 91-29-0804Ktctunpzbe [Mass/Vol]0.83 mg/dL0.60-1.20[facility] Jewish HospitalComment on above:Performed By: #### A1C WTH eA, CBC, CMP, MG, FE and TIBC, PREETI, [id number], TSH3 #### [place] [address] [place] #### INSULIN #### [facility] ,Eosinophils [#/volume] in Blood by Automated countOrdered By: Bakari Escalera on 59-59-4081Hxwytxcavpa (Bld) [#/Vol]0.1 10*3/uL0.0-0.45[facility] HospitalComment on above:Performed By: #### A1C WTH eA, CBC, CMP, MG, FE and TIBC, PREETI, [id number], TSH3 #### [place] [address] [place] #### INSULIN #### [facility] ,Eosinophils/100 leukocytes in Blood by Automated countOrdered By: Bakari Escalera on 77-98-4017Iwtdoiofqqm/100 WBC (Bld)1.0 %.[facility] Comment on above:Performed By: #### A1C WTH eA, CBC, CMP, MG, FE and TIBC, PREETI, [id number], TSH3 #### [facility] [address] [place] [address] [place] #### INSULIN #### [facility] ,Erythrocyte distribution width [Ratio] by Automated countOrdered By: Bakari Escalera on 09-26-1879Evxlqniqqnn distribution width (RBC) [Ratio]12.8 %11.9-15.3 [facility] Jewish HospitalComment on above:Performed By: #### A1C WTH eA, CBC, CMP, MG, FE and TIBC, PREETI, [id number], TSH3 #### [address] #### INSULIN #### [facility] ,Erythrocytes [#/volume] in Blood by Automated countOrdered By: Bakari Escalera on 71-88-3941ZJL (Bld) [#/Vol]4.51 10*6/uL3.60-5.00[facility] HospitalComment on above:Performed By: #### A1C WTH eA, CBC, CMP, MG, FE and TIBC, PREETI, [id number], TSH3 #### [address] #### INSULIN #### [facility] ,Ferritin [Mass/volume] in Serum or PlasmaOrdered By: Bakari Escalera on 11-15-2024 Ferritin [Mass/Vol]31.6 ng/mL11.0-306.8[facility] Jewish HospitalComment on above:Performed By: #### A1C WTH eA, CBC, CMP, MG, FE and TIBC, PREETI, [id number], TSH3 #### [address] #### INSULIN #### [facility] ,Folate [Mass/volume] in Serum or PlasmaOrdered By: Bakari Escalera on 11-15-2024 Folate [Mass/Vol]19.2 ng/mL>5.9[facility] Jewish HospitalComment on above:Folate reference range: >5.9 ng/mlThe WHO technical consultation on folate and vitamin g73xisyggbkwazk has determined that folate concentrations lessthan 4 ng/ml are considered deficient.Glomerular filtration rate [Volume Rate/Area] in Serum, Plasma or Blood by CreatinineOrdered By: Bakari Escalera on 11-15-2024 Glomerular filtration rate [Volume Rate/Area] in Serum, Plasma or Blood by Creatinine> 60.0 mL/MinMercy Health – The Jewish HospitalGlucose [Mass/volume] in Serum or PlasmaOrdered By: Bakari Escalera on 36-41-2995Cawqvtd [Mass/Vol]100 mg/rO12-242ToitbgoefMercy Health – The Jewish HospitalComment on above:ADA recommended reference rangeRandom Glucose Reference Range is dependent on time and content of last meal. Glucose of more than 200 mg/dL in a nonstressed, ambulatory subject supports the diagnosisof Diabetes Mellitus.Result Comment: Random Glucose Reference Range is dependent on time and content of last meal. Glucose of more than 200 mg/dL in a nonstressed, ambulatory subject supports the diagnosis of Diabetes Mellitus. ADA recommended reference rangePerformed By: #### A1C WTH eA, CBC, CMP, MG, FE and TIBC, PREETI, [id number], TSH3 #### [facility] [address] [place] [address] #### INSULIN #### [facility] ,Hematocrit [Volume Fraction] of Blood by Automated countOrdered By: Bakari Escalera on 39-92-1751Wsxijrmxta (Bld) [Volume fraction]40.6 %34.0-46.4FMemorial Health System Selby General HospitalComment on above:Performed By: #### A1C WTH eA, CBC, CMP, MG, FE and TIBC, PREETI, [id number], TSH3 #### [place] [address] [place] #### INSULIN #### [facility] ,Hemoglobin [Mass/volume] in BloodOrdered By: Bakari Escalera on 11-15-2024 Hemoglobin (Bld) [Mass/Vol]13.5 g/dL11.8-15.4FMemorial Health System Selby General Hospital Comment on above:Performed By: #### A1C WTH eA, CBC, CMP, MG, FE and TIBC, PREETI, [id number], TSH3 #### [facility] [address] [place] [address] [place] #### INSULIN #### [facility] ,Insulinon 42-76-2978Aesaqxj0.1 u[iU]/mLNormal2.6-24.9The [facility] Physician [facility] River GulfportComment on above:Result Comment: Performed at: - [facility], [place], [place] [id number] Press Pipe Inspector: Isaiah Fitzpatrick PhD, Phone: [phone] PERFORMED BY: [place] [address] PATHOLOGIST SPRAY DYER JOHANN TRINIDAD M.D.Performed By: #### A1C WTH eA, CBC, CMP, MG, FE and TIBC, PREETI, [id number], TSH3 ####[facility] [id number] [place] [address]#### INSULIN ####[facility] ,Iron [Mass/volume] in Serum or PlasmaOrdered By: Bakari Escalera on 84-12-1736Hyou [Mass/Vol]58 ug/tF87-714PdkcxtxrpMercy Health – The Jewish HospitalComment on above: Performed By: #### A1C WTH eA, CBC, CMP, MG, FE and TIBC, PREETI, [id number], TSH3 #### [facility] [address] [place] [address] #### INSULIN #### [facility] ,Iron and TIBC Profileon 11-15-2024% Iron Uvcnknfgct18.5 %Irv53-82Kpx [facility] Physician [facility] GulfportComment on above:Performed By: #### A1C WTH eA, CBC, CMP, MG, FE and TIBC, PREETI, [id number], TSH3 #### [facility] [address] [place] [address] [place] #### INSULIN #### [facility] ,Total Iron Binding Ccoknlso632 ug/tUVobdij235-052Nbv [facility] Comment on above:Performed By: #### A1C WTH eA, CBC, CMP, MG, FE and TIBC, PREETI, [id number], TSH3 #### [facility] [address] [place] [address] [place] #### INSULIN #### [facility] ,Leukocytes [#/volume] corrected for nucleated erythrocytes in Blood by Automated counOrdered By: Bakari Escalera on 06-82-8794GXU corrected for nucl RBC Auto (Bld) [#/Vol]7.3 10*3/uL3.8-11.6FMemorial Health System Selby General HospitalLeukocytes [#/volume] in Blood by Automated countOrdered By: Bakari Escalera on 17-55-1434AGJ (Bld) [#/Vol]7.3 10*3/uL3.8-11.6FMemorial Health System Selby General HospitalComment on above:Performed By: #### A1C WTH eA, CBC, CMP, MG, FE and TIBC, PREETI, [id number], TSH3 #### [facility] [address] [place] [address] #### INSULIN #### [facility] ,Lymphocytes [#/volume] in Blood by Automated countOrdered By: Bakari Escalera on 76-49-0011Iahnnctxgky (Bld) [#/Vol]2.3 10*3/uL1.00-4.8[facility] HospitalComment on above:Performed By: #### A1C WTH eA, CBC, CMP, MG, FE and TIBC, PREETI, [id number], TSH3 #### [facility] [address] [address] [place] #### INSULIN #### [facility] ,Lymphocytes/100 leukocytes in Blood by Automated countOrdered By: Bakari Escalera on 58-40-2719Wsvonycmszr/100 WBC (Bld)31.4 %.[facility] Comment on above:Performed By: #### A1C WTH eA, CBC, CMP, MG, FE and TIBC, PREETI, [id number], TSH3 #### [facility] [address] [place] [address] [place] #### INSULIN #### [facility] ,MCH [Entitic mass] by Automated countOrdered By: Bakari Escalera on 00-55-2370IEV (RBC) [Entitic mass]29.9 pg24.7-34.3FMemorial Health System Selby General HospitalComment on above:Performed By: #### A1C WTH eA, CBC, CMP, MG, FE and TIBC, PERETI, [id number], TSH3 #### [facility] [address] [place] [address] [place] #### INSULIN #### [facility] ,MCHC Auto (RBC) [Mass/Vol]Ordered By: Bakari Escalera on 94-82-6252HCRB (RBC) [Mass/Vol]33.2 g/dL32.0-35.0Mer[facility] HospitalMCV [Entitic volume] by Automated countOrdered By: Bakari Escalera on 15-58-3663UWT (RBC) [Entitic vol]90.0 sK80-218QehjmdbykMercy Health – The Jewish HospitalComment on above: Performed By: #### A1C WTH eA, CBC, CMP, MG, FE and TIBC, PREETI, [id number], TSH3 #### [facility] [address] [place] [address] [place] #### INSULIN #### [facility] ,Magnesium [Mass/volume] in Serum or PlasmaOrdered By: Bakari Escalera on 59-66-1410Ziscosivd [Mass/Vol]1.9 mg/dL1.9-2.7FMemorial Health System Selby General Hospital Comment on above:Performed By: #### A1C WTH eA, CBC, CMP, MG, FE and TIBC, PREETI, [id number], TSH3 #### [facility] [address] [place] [address] [place] #### INSULIN #### [facility] ,Monocytes [#/volume] in Blood by Automated countOrdered By: Bakari Escalera on 19-29-4829Hjjauyhks (Bld) [#/Vol]0.5 10*3/uL0.0-0.8[facility] HospitalComment on above:Performed By: #### A1C WTH eA, CBC, CMP, MG, FE and TIBC, PREETI, [id number], TSH3 #### [place] [address] [place] #### INSULIN #### [facility] ,Monocytes/100 leukocytes in Blood by Automated countOrdered By: Bakari Escalera on 81-49-9613Usvrmwlgr/100 WBC (Bld)6.9 %.[facility] HospitalComment on above:Performed By: #### A1C WTH eA, CBC, CMP, MG, FE and TIBC, PREETI, [id number], TSH3 #### [place] [address] [place] #### INSULIN #### [facility] ,Neutrophils [#/volume] in Blood by Automated countOrdered By: Bakari Escalera on 43-82-8652Yxqhzhlrhpx (Bld) [#/Vol]4.3 10*3/uL1.8-7.7FMemorial Health System Selby General HospitalComment on above:Performed By: #### A1C WTH eA, CBC, CMP, MG, FE and TIBC, PREETI, [id number], TSH3 #### [place] [address] [place] #### INSULIN #### [facility] ,Neutrophils/100 leukocytes in Blood by Automated countOrdered By: Bakari Escalera on 35-36-5795Nfnrbpxznri/100 WBC (Bld)60.0 %.[facility] Comment on above:Performed By: #### A1C WTH eA, CBC, CMP, MG, FE and TIBC, PREETI, [id number], TSH3 #### [place] [address] [place] #### INSULIN #### [facility] ,No Panel InformationOrdered By: Bakari Escalera on 13-40-3089Rizqylgb Creatinine Clearance (ChemN/AFMemorial Health System Selby General HospitalNucleated erythrocytes [Presence] in Blood by Automated countOrdered By: Bakari Escalera on 11-15-2024 Nucleated RBC Auto Ql (Bld)0.2 /100{WBC}0-0.5FMemorial Health System Selby General Hospital Platelet mean volume [Entitic volume] in Blood by Automated countOrdered By: Bakari Escalera on 93-56-4769Zamlyume mean volume (Bld) [Entitic vol]8.6 fL6.3-10.7 [facility] HospitalComment on above:Performed By: #### A1C WTH eA, CBC, CMP, MG, FE and TIBC, PREETI, [id number], TSH3 #### [place] [address] [place] #### INSULIN #### [facility] ,Platelets [#/volume] in Blood by Automated countOrdered By: Bakari Escalera on 89-47-3129Ehiqibqis (Bld) [#/Vol]289 10*3/uS166-767WjmrxzxowMercy Health – The Jewish HospitalComment on above:Performed By: #### A1C WTH eA, CBC, CMP, MG, FE and TIBC, PREETI, [id number], TSH3 #### [place] [address] [place] #### INSULIN #### [facility] ,Potassium [Moles/volume] in Serum or PlasmaOrdered By: Bakari Escalera on 53-65-0641Jxqxrcvfn [Moles/Vol]4.4 mmol/L3.5-5.1FMemorial Health System Selby General HospitalComment on above:Performed By: #### A1C WTH eA, CBC, CMP, MG, FE and TIBC, PREETI, [id number], TSH3 #### [place] [address] [place] #### INSULIN #### [facility] ,Protein [Mass/volume] in Serum or PlasmaOrdered By: Bakari Escalera on 11-15-2024 Protein [Mass/Vol]6.5 g/dL6.4-8.9[facility] HospitalComment on above:Performed By: #### A1C WTH eA, CBC, CMP, MG, FE and TIBC, PREETI, [id number], TSH3 #### [place] [address] [place] #### INSULIN #### [facility] ,Serum globulin measurement by calculation (mass/volume)Ordered By: Bakari Escalera on 28-36-9829Mkppezvc (S) [Mass/Vol]2.3 g/dLMercy Health – The Jewish Hospital Comment on above:Performed By: #### A1C WTH eA, CBC, CMP, MG, FE and TIBC, PREETI, [id number], TSH3 #### [facility] [address] [place] [address] [place] #### INSULIN #### [facility] ,Serum or plasma albumin/globulin mass ratioOrdered By: Bakari Escalera on 90-16-4458Sznvflu/Globulin [Mass ratio]1.8 {ratio}[facility] HospitalComment on above:Performed By: #### A1C WTH eA, CBC, CMP, MG, FE and TIBC, PREETI, [id number], TSH3 #### [facility] [address] [place] [address] #### INSULIN #### [facility] ,Serum or plasma anion gap determinationOrdered By: Bakari Escalera on 11-15-2024 Anion gap [Moles/Vol]10.3 mmol/L6.0-15.0[facility] HospitalComment on above:Performed By: #### A1C WTH eA, CBC, CMP, MG, FE and TIBC, PREETI, [id number], TSH3 #### [facility] [address] [place] [address] [place] #### INSULIN #### [facility] ,Serum or plasma insulin measurement (units/volume)Ordered By: Bakari Escalera on 84-76-1622Omndcof Qn9.1 u[iU]/mL2.6-24.9[facility] HospitalComment on above:Performed at: [facility] [id number] Director: Isaiah Fitzpatrick PhD, Phone: [phone] or plasma iron binding capacity measurement (mass/volume)Ordered By: Bakari Escalera on 50-89-2356Zlhd binding capacity [Mass/Vol]298 ug/iF924-309Zlsjozadu[address] [place], [place] [address]erum or plasma iron saturation measurement (mass fraction)Ordered By: Bakari Escalera on 57-73-8222Feuw saturation [Mass fraction]19.5 %Vjv38-90 [facility] Medical Centerodium [Moles/volume] in Serum or PlasmaOrdered By: Bakari Escalera on 43-28-3031Mvmxzf [Moles/Vol]140 mmol/N471-306ZfyffjlwyMercy Health – The Jewish HospitalComment on above:Performed By: #### A1C WTH eA, CBC, CMP, MG, FE and TIBC, PREETI, [id number], TSH3 #### [address] #### INSULIN #### [facility] ,Thyrotropin [Units/volume] in Serum or PlasmaOrdered By: Bakari Escalera on 26-18-4462AGC Qn1.81 m[IU]/L0.45-5.33[facility] Jewish HospitalComment on above:Result Comment: PERFORMED BY: [place] [address] PATHOLOGIST SPRAY DYER JOHANN TRINIDAD M.D.Performed By: #### A1C WTH eA, CBC, CMP, MG, FE and TIBC, PREETI, [id number], TSH3 ####[address]#### INSULIN ####[facility] ,Transferrin [Mass/volume] in Serum or PlasmaOrdered By: Bakari Escalera on 11-15-2024 Transferrin [Mass/Vol]213 mg/oN149-000DlftsopqoMercy Health – The Jewish HospitalComment on above:Performed By: #### A1C WTH eA, CBC, CMP, MG, FE and TIBC, PREETI, [id number], TSH3 #### [place] [address] [place] #### INSULIN #### [facility] ,Urea nitrogen [Mass/volume] in Serum or PlasmaOrdered By: Bakari Escalera on 98-52-6779Msmz nitrogen [Mass/Vol]15 mg/dL7-25[facility] Comment on above:Performed By: #### A1C WTH eA, CBC, CMP, MG, FE and TIBC, PREETI, [id number], TSH3 #### [facility] [address] [place] [address] #### INSULIN #### [facility] ,Vit. B12/Folate Profileon 27-38-3714Jgwmbc61.2 ng/mLNormal>5.9The [facility] Physician GroupComment on above:Result Comment: Folate reference range: >5.9 ng/ml The WHO technical consultation on folate and vitamin b12 deficiencies has determined that folate concentrations less than 4 ng/ml are considered deficient.Performed By: #### A1C WTH eA, CBC, CMP, MG, FE and TIBC, PREEIT, [id number], TSH3 #### [facility] [address] [place] [address] #### INSULIN #### [facility] ,Vitamin B12 ser/plasOrdered By: Bakari Escalera on 92-64-4982Mgldtdmuq (Vitamin B12) [Mass/Vol]447 pg/oQ079-649LwcgwayjnMercy Health – The Jewish HospitalComment on above:Performed By: #### A1C WTH eA, CBC, CMP, MG, FE and TIBC, PREETI, [id number], TSH3 #### [facility] [address] [place] [address] #### INSULIN #### [facility] ,Katherine [phone] (NIQ) JESSICA VALDEZ ([id number]) 1990 F Date Time Provider Department 11/12/24 NEUROLOGY PROVIDER NIQ During your visit today, we recorded the following information about you: Brenda Lorenzana 11/16/2024 1:53 PM Signed Referral source: Dr. Bakari Escalera (On License Of [facility]) Reason for visit: consult with Dr. Yang Colon for dizziness External records: Sent with referral Triage: Not required Financial clearance: Not required to schedule Allergies As of Date: 11/12/2024 Noted Allergy Reaction DIFLUCAN (FLUCONAZOLE) 05/21/2016 14 - Other: See Comments Comments: QT prolongation DOXYCYCLINE 05/21/2016 4 - Hives ERYTHROMYCIN 05/21/2016 2 - Rash MOTRIN (IBUPROFEN) 05/18/2018 4 - Hives OMNICEF (CEFDINIR) 05/21/2016 7 - Swelling PENICILLIN 05/21/2016 2 - Rash SULFACETAMIDE 05/21/2016 2 - Rash ZITHROMAX (AZITHROMYCIN) 05/21/2016 2 - Rash Date Reviewed: 09/22/2018 Reviewed by: Viviana Akbar - Fully Assessed Reason for Visit: Received Outside Medical Records [[id number]] Cmt: External referral to [facility] [place] Prescriptions as of 11/16/2024 - clomiPHENE (SEROPHENE) 50 mg tablet Take 3 tabs by mouth cycle day 5-9. - vit/iron fum/folic ac ( VITAMIN ORAL) Take by mouth. - UBIQUINONE ORAL Take by mouth. - methylPREDNISolone (MEDROL) 16 mg tablet Take 1 tablet by mouth once daily. Take as directed - Cholecalciferol, Vitamin D3, (VITAMIN D) 1,000 unit cap Take 5 capsules by mouth once daily. (CAN GET THE 5,000 IU AT [facility]) - loratadine (CLARITIN) 10 mg tablet Take 1 tablet by mouth once daily as needed for Cold/Allergy Symptoms. - fludrocortisone (FLORINEF) 0.1 mg tablet Take 0.1 mg by mouth twice daily. - FLUoxetine (PROZAC) 20 mg capsule Take 20 mg by mouth once daily. Problem List As Of Date: 11/12/2024 (None) Encounter Status:Closed by BRENDA LORENZANA on 11/16/24NoDetwiler Memorial HospitalAntimullerian hormone (AMH)on 54-14-3524FYKI-MULLERIAN HORMONE0.038 ng/mL.NOMS HealthcareComment on above:For assays employing antibodies, the possibility exists for interference by heterophile antibodies in the samples.1 1.Kasandra Mukherjee Interferences in Immunoassays - still a threat. Clin. Chem. 2000; 46: 7748-5885. This test was developed and its performance characteristics determined by [employer]. It has not been cleared or approved by the Food and Drug Administration. Reference Range: Females 31 - 35y: 0.66 - 8.75 Median 3.00 AMH concentrations of >= 1.06 ng/mL is correlated with a better response to ovarian stimulation, produced more retrievable oocytes and higher odds of live according to Hossein et al. Fertility and Sterility. 2010: 94:9024-2196. The current AMH test method correlates with the study method with a slope of 0.94. Females at risk of ovarian hyperstimulation syndrome or polycystic ovarian syndrome (PCOS) may exhibit elevated serum AMH concentrations. AMH levels from PCOS patients may be 2 to 5 fold higher than age-appropriate reference interval values. Granulosa cell tumors of the ovary may secrete AMH along with other tumor markers. Elevated AMH is not specific for malignancy, and the assay should not be used exclusively to diagnose or exclude an AMH-secreting ovarian tumor. Performed at: [facility] [address] [place] [id number] Press Pipe Inspector: Adi Fry MD, Phone: [phone] [facility] Medical CenterHemoglobin a1c with eagon 12-42-7513Vsglfji [Mass/Vol]108 mg/dL [facility] Medical CenterHbA1c (Bld) [Mass fraction]5.4 %4.3 - 5.6 %[facility] HealthcareComment on above:Increased risk for diabetes: 5.7 - 6.4 diabetes: >6.4 glycemic control for adults with diabetes: <7.0 [facility] Healthcare1,25 Dihydroxy Vit D Calcitrolon ,25 Dihydroxy Vit D Usrfxudfl74.6 pg/cAAucshu47.8-81.5The [facility] Physician GroupComment on above: Result Comment: Performed at: [facility] [id number] Press Pipe Inspector: Merlyn Sanders MD, Phone: [phone] By: #### T4F, TSH3, FSH, A1C [facility] eA, CBC ####[facility] [address] [place] [address] [facility]#### AMH, NMOT404, LH, PROG, DHEAS, DHEA, ESTRADIOL ####[facility] ,A1C with Estimated Average Gluon 34-50-5319Fyyajja [Mass/Vol]108 mg/dLNormNemours Children's Hospital Physician GroupComment on above:Result Comment: PERFORMED BY: [facility] [address] [place] [address] PATHOLOGIST SPRAY DYER JOHANN TRINIDAD M.D.Performed By: #### T4F, TSH3, FSH, A1C WT eA, CBC ####[facility] [address] [place] [id number] [facility]#### AMH, FOGZ612, LH, PROG, DHEAS, DHEA, ESTRADIOL ####[facility] ,Anti- Mullerian Hormoneon 51-76-9565Jgdx-Mullerian Hormone0.038 ng/mLNormal.The [facility] Physician GroupComment on above:Result Comment: For assays employing antibodies, the possibility exists for interference by heterophile antibodies in the samples.1 1.Kasandra Mukherjee Interferences in Immunoassays - still a threat. Clin. Chem. 2000; 46: 0414-9174. This test was developed and its performance characteristics determined by [employer]. It has not been cleared or approved by the Food and Drug Administration. Reference Range: Females 31 - 35y: 0.66 - 8.75 Median 3.00 AMH concentrations of >= 1.06 ng/mL is correlated with a better response to ovarian stimulation, produced more retrievable oocytes and higher odds of live according to Glejameser et al. Fertility and Sterility. 2010: 94:3521-7847. The current AMH test method correlates with the study method with a slope of 0.94. Females at risk of ovarian hyperstimulation syndrome or polycystic ovarian syndrome (PCOS) may exhibit elevated serum AMH concentrations. AMH levels from PCOS patients may be 2 to 5 fold higher than age-appropriate reference interval values. Granulosa cell tumors of the ovary may secrete AMH along with other tumor markers. Elevated AMH is not specific for malignancy, and the assay should not be used exclusively to diagnose or exclude an AMH-secreting ovarian tumor. Performed at: [facility] [address] [place] [address], [place] [id number] Press Pipe Inspector: Adi Fry MD, Phone: [phone] PERFORMED BY: [place] [address] PATHOLOGIST SPRAY DYER JOHANN TRINIDAD M.D.Performed By: #### T4F, TSH3, FSH, A1C WTH eA, CBC ####[address]#### AMH, [id number], LH, PROG, DHEAS, DHEA, ESTRADIOL ####[facility] , Basophils [#/volume] in Blood by Automated countOrdered By: Ruddy Mejia on 21-38-9296Kanxgpfep (Bld) [#/Vol]0.0 10*3/uLNormal0.0-0.2FMemorial Health System Selby General HospitalComment on above:Result Comment: PERFORMED BY: [place] [address] PATHOLOGIST SPRAY DYER JOHANN TRINIDAD M.D.Performed By: #### T4F, TSH3, FSH, A1C WTH eA, CBC ####[address]#### AMH, [id number], LH, PROG, DHEAS, DHEA, ESTRADIOL ####[facility] , Basophils/100 leukocytes in Blood by Automated countOrdered By: Ruddy Mejia on 59-95-6706Psmtkrgwh/100 WBC (Bld)0.6 %Normal.[facility] Comment on above:Performed By: #### T4F, TSH3, FSH, A1C WTH eA, CBC ####[address]#### AMH, [id number], LH, PROG, DHEAS, DHEA, ESTRADIOL ####[facility] ,Blood estimated average glucose determination by estimation from glycated hemoglobin Ordered By: Ruddy Mejia on 62-20-3687Pnssqgl glucose Estimated from glycated hemoglobin (Bld) [Mass/Vol]108 mg/dLFirelands Regional Medical CenterCBC W Auto Differential panel (Bld)on 43-46-2308Qbgiyhcht (Bld) [#/Vol]0 10*3/uL0.0 - 0.2 10*3/uLNOMS HealthcareBasophils/100 WBC Manual cnt (Syn fld)0.6 %.[facility] HealthcareEosinophils (Bld) [#/Vol]0 10*3/uL0.0 - 0.45 10*3/uLNOMS Healthcare Eosinophils/100 WBC Manual cnt (Syn fld)0.6 %.[facility] HealthcareErythrocyte distribution width (RBC) [Ratio]12.6 %11.9 - 15.3 %[facility] HealthcareHematocrit (Bld) [Volume fraction]40.8 %34.0 - 46.4 %[facility] HealthcareHemoglobin (Bld) [Mass/Vol]13.7 g/dL11.8 - 15.4 g/dLBLUE MOUNTAIN HOSPITAL HealthcareLymphocytes (Bld) [#/Vol]1.9 10*3/uL1.00 - 4.8 10*3/uLNOMS HealthcareLymphocytes/100 WBC Manual cnt (Syn fld) 25.5 %.[facility] CenterMCH (RBC) [Entitic mass]30.1 pg24.7 - 34.3 pgResearch Psychiatric CenterHC (RBC) [Mass/Vol]33.5 g/dL32.0 - 35.0 g/dLUniversity Health Lakewood Medical CenterMCV (RBC) [Entitic vol]89.9 fL80 - 100 fLBLUE MOUNTAIN HOSPITAL HealthcareMonocytes (Bld) [#/Vol]0.4 10*3/uL0.0 - 0.8 10*3/uLNOMS HealthcareMonocytes+Macrophages/100 WBC Manual cnt (Syn fld)6 %.[facility] HealthcareNeutrophils (Bld) [#/Vol]4.9 10*3/uL1.8 - 7.7 10*3/uLNOMS HealthcareNeutrophils/100 WBC Manual cnt (Syn fld)67.3 %.[facility] HealthcareNRBC0.1 /100{WBC}0 - 0.5 /100{WBC}NOM HealthcarePlatelet mean volume (Bld) [Entitic vol]8.3 fL6.3 - 10.7 fLBLUE MOUNTAIN HOSPITAL HealthcarePlatelets (Bld) [#/Vol]293 10*3/uL150 - 450 10*3/uLUniversity Health Lakewood Medical CenterRBC LM.HPF (Urine sed) [#/Area]4.54 10*6/uL3.60 - 5.00 10*6/uLNOMS HealthcareWBC (Bld) [#/Vol]7.3 10*3/uL3.8 - 11.6 10*3/uLNOMS HealthcareWBC LM.HPF (Urine sed) [#/Area]7.3 [CFU]/mL3.8 - 11.6 [CFU]/mLNOMS [facility] HealthcareComplete Blood Count Auto Diffon 92-05-3819Gcdt Corpuscular HGB Conc33.5 g/hVFmkxyu32.0-35.0The [facility] Physician GroupComment on above:Performed By: #### T4F, TSH3, FSH, A1C [facility], CBC ####[address]#### AMH, [id number], LH, PROG, DHEAS, DHEA, ESTRADIOL ####[facility] 0,NRBC%0.1 /100{WBC}Normal0-0.5The [facility] Physician GroupComment on above: Performed By: #### T4F, TSH3, FSH, A1C [facility] eA, CBC ####[place] [address] [place]#### AMH, [id number], LH, PROG, DHEAS, DHEA, ESTRADIOL ####[facility] ,White Blood Count7.3 [CFU]/mL Normal3.8-11.6The [facility] Physician GroupComment on above:Performed By: #### T4F, TSH3, FSH, A1C [facility] eA, CBC ####[address]#### AMH, [id number], LH, PROG, DHEAS, DHEA, ESTRADIOL ####[facility] ,Dehydroepandrosteroneon 73-22-2194XCOM043 ng/dLNormal 31-701The [facility] Physician GroupComment on above:Result Comment: This test was developed and its performance characteristics determined by [facility]. It has not been cleared or approved by the Food and Drug Administration. Performed at: [facility] Lab[address] [id number] Press Pipe Inspector: Merlyn Sanders MD, Phone: [phone] By: #### T4F, TSH3, FSH, A1C WT eA, CBC ####[facility] Hph[address] [address]#### AMH, [id number], LH, PROG, DHEAS, DHEA, ESTRADIOL ####[facility] ,Dehydroepiandrosterone Sulfateon 09-11-2024 Dehydroepiandrosterone Aflhqvq658.0 ug/dHBvngpi82.8-378.0The [facility] Physician [facility] GulfportComment on above:Performed By: #### T4F, TSH3, FSH, A1C WTH eA, CBC ####[facility]#### AMH, [id number], LH, PROG, DHEAS, DHEA, ESTRADIOL ####[facility] , Eosinophils [#/volume] in Blood by Automated countOrdered By: Ruddy Mejia on 95-78-4300Gcnbfqqsipo (Bld) [#/Vol]0.0 10*3/uLNormal0.0-0.45[facility] HospitalComment on above:Performed By: #### T4F, TSH3, FSH, A1C WT eA, CBC ####[address]#### AMH, [id number], LH, PROG, DHEAS, DHEA, ESTRADIOL ####[facility] 0,Eosinophils/100 leukocytes in Blood by Automated countOrdered By: Ruddy Mejia on 88-30-5208Rtbtytddofr/100 WBC (Bld)0.6 %Normal.[facility] Jewish HospitalComment on above:Performed By: #### T4F, TSH3, FSH, A1C [facility] eA, CBC ####[facility] [place] [address] [place]#### AMH, [id number], LH, PROG, DHEAS, DHEA, ESTRADIOL ####[facility] , Erythrocyte distribution width [Ratio] by Automated countOrdered By: Ruddy Mejia on 89-14-9481Mehoohqjrnk distribution width (RBC) [Ratio]12.6 %Angnao57.9-15.3 [facility] HospitalComment on above:Performed By: #### T4F, TSH3, FSH, A1C [facility] eA, CBC ####[facility]#### AMH, [id number], LH, PROG, DHEAS, DHEA, ESTRADIOL ####[facility] ,Erythrocytes [#/volume] in Blood by Automated count Ordered By: Ruddy Mejia on 96-62-3471PKJ (Bld) [#/Vol]4.54 10*6/uLNormal 3.60-5.00[facility] HospitalComment on above:Performed By: #### T4F, TSH3, FSH, A1C [facility] eA, CBC ####[facility]#### AMH, [id number], LH, PROG, DHEAS, DHEA, ESTRADIOL ####[facility] ,Estradiolon 00-70-4949Otebynslz718.0 pg/mLNormal.The [facility] Physician GroupComment on above:Result Comment: Adult Female Range Follicular phase 12.5 - 166.0 Ovulation phase 85.8 - 498.0 Luteal phase 43.8 - 211.0 Postmenopausal <6.0 - 54.7 1st trimester 215.0 - >4300.0 Xavier ECLIA methodology Performed at: [facility] Lab[address] [id number] Press Pipe Inspector: Isaiah Fitzpatrick PhD, Phone: [phone] PERFORMED BY: [place] [id number] PATHOLOGIST SPRAY DYER JOHANN TRINIDAD M.D.Performed By: #### T4F, TSH3, FSH, A1C [facility] eA, CBC ####[place] [address] [place] [id number] [facility]#### AMH, [id number], LH, PROG, DHEAS, DHEA, ESTRADIOL ####[facility] , Follicle Stimulating Hormoneon 21-65-8042Qdtuccvu Stimulating Hormone4.4 m[iU]/mLNCannon Memorial Hospital Physician GroupComment on above:Result Comment: FEMALE NORMALS (PREMENOPAUSE) MID-FOLLICULAR PHASE: 3.9-8.8 mIU/mL MID-CYCLE PEAK: 4.5-22.5 mIU/mL MID-LUTEAL PHASE: 1.8-5.1 mIU/mL FEMALE NORMALS (POSTMENOPAUSE): 16.7-113.6 mIU/mL MALE NORMALS: 1.3-19.3 mIU/mL PERFORMED BY: [place] [id number] PATHOLOGIST SPRAY DYER JOHANN TRINIDAD M.D.Performed By: #### T4F, TSH3, FSH, A1C [facility] eA, CBC ####[place] [address] [place] [id number] [facility]#### AMH, [id number], LH, PROG, DHEAS, DHEA, ESTRADIOL ####[facility] , Follitropin [Units/volume] in Serum or PlasmaOrdered By: Ruddy Mejia on 65-82-4623Sufponyyaxb Qn4.4 m[IU]/mLMercy Health – The Jewish HospitalComment on above:FEMALE NORMALS (PREMENOPAUSE) MID-FOLLICULAR PHASE: 3.9-8.8 mIU/mL MID- CYCLE PEAK: 4.5-22.5 mIU/mL MID-LUTEAL PHASE: 1.8-5.1 mIU/mLFEMALE NORMALS (POSTMENOPAUSE): 16.7-113.6 mIU/mLMALE NORMALS: 1.3-19.3 mIU/mLHematocrit [Volume Fraction] of Blood by Automated countOrdered By: Ruddy Mejia on 21-85-2323Bgsmnmesys (Bld) [Volume fraction]40.8 %Lcuexj35.0-46.4FMemorial Health System Selby General HospitalComment on above:Performed By: #### T4F, TSH3, FSH, A1C WTH eA, CBC ####[address]#### AMH, [id number], LH, PROG, DHEAS, DHEA, ESTRADIOL ####[facility] ,Hemoglobin A1c/Hemoglobin.total in BloodOrdered By: Ruddy Mejia on 85-23-8065HqJ5e (Bld) [Mass fraction]5.4 %Normal4.3-5.6FMemorial Health System Selby General HospitalComment on above:Increased risk for diabetes: 5.7 - 6.4diabetes: >6.4glycemic control for adults with diabetes: <7.0Result Comment: Increased risk for diabetes: 5.7 - 6.4 diabetes: >6.4 glycemic control for adults with diabetes: <7.0Performed By: #### T4F, TSH3, FSH, A1C WTH eA, CBC ####[address]#### AMH, [id number], LH, PROG, DHEAS, DHEA, ESTRADIOL ####[facility] ,Hemoglobin [Mass/volume] in BloodOrdered By: Ruddy Mejia on 31-80-0697Koofzldtsn (Bld) [Mass/Vol]13.7 g/tZYbhzje10.8-15.4FMemorial Health System Selby General HospitalComment on above:Performed By: #### T4F, TSH3, FSH, A1C WTH eA, CBC ####[address]#### AMH, [id number], LH, PROG, DHEAS, DHEA, ESTRADIOL ####[facility] ,Leukocytes [#/volume] corrected for nucleated erythrocytes in Blood by Automated counOrdered By: Ruddy Mejia on 80-55-0996KCA corrected for nucl RBC Auto (Bld) [#/Vol]7.3 10*3/uL3.8-11.6FMemorial Health System Selby General Hospital Leukocytes [#/volume] in Blood by Automated countOrdered By: Ruddy Mejia on 36-11-0195PWU (Bld) [#/Vol]7.3 10*3/uLNormal3.8-11.6FMemorial Health System Selby General HospitalComment on above:Performed By: #### T4F, TSH3, FSH, A1C WTH eA, CBC ####[address]#### AMH, [id number], LH, PROG, DHEAS, DHEA, ESTRADIOL ####[facility] , Luteinizing Hormoneon 27-49-8811Wjzddgyyqeg Hormone7.3 m[iU]/mLNormal.The [facility] Physician GroupComment on above:Result Comment: Adult Female Range Follicular phase 2.4 - 12.6 Ovulation phase 14.0 - 95.6 Luteal phase 1.0 - 11.4 Postmenopausal 7.7 - 58.5Performed By: #### T4F, TSH3, FSH, A1C WTH eA, CBC ####[address]#### AMH, [id number], LH, PROG, DHEAS, DHEA, ESTRADIOL ####[facility] , Lymphocytes [#/volume] in Blood by Automated countOrdered By: Ruddy Mejia on 26-95-0603Ukqozasygmt (Bld) [#/Vol]1.9 10*3/uLNormal1.00-4.8[facility] HospitalComment on above:Performed By: #### T4F, TSH3, FSH, A1C WTH eA, CBC ####[address]#### AMH, [id number], LH, PROG, DHEAS, DHEA, ESTRADIOL ####[facility] 0,Lymphocytes/100 leukocytes in Blood by Automated countOrdered By: Ruddy Mejia on 97-85-8998Ntkvwaqbcli/100 WBC (Bld)25.5 %Normal.[facility] HospitalComment on above:Performed By: #### T4F, TSH3, FSH, A1C WTH eA, CBC ####[address]#### AMH, [id number], LH, PROG, DHEAS, DHEA, ESTRADIOL ####[facility] ,MCH [Entitic mass] by Automated countOrdered By: Rudyd Mejia on 06-07-6813MQI (RBC) [Entitic mass]30.1 zdHyrmjd60.7-34.3FMemorial Health System Selby General HospitalComment on above:Performed By: #### T4F, TSH3, FSH, A1C WT eA, CBC ####[address]#### AMH, [id number], LH, PROG, DHEAS, DHEA, ESTRADIOL ####[facility] ,MCHC Auto (RBC) [Mass/Vol] Ordered By: Ruddy Mejia on 54-48-9641SGUT (RBC) [Mass/Vol]33.5 g/dL32.0-35.0 [facility] HospitalMCV [Entitic volume] by Automated countOrdered By: Ruddy Mejia on 00-86-7619LED (RBC) [Entitic vol]89.9 mXSbvfld08-308QptthryqdMercy Health – The Jewish HospitalComment on above:Performed By: #### T4F, TSH3, FSH, A1C WT eA, CBC ####[address]#### AMH, [id number], LH, PROG, DHEAS, DHEA, ESTRADIOL ####[facility] ,Monocytes [#/volume] in Blood by Automated countOrdered By: Ruddy Mejia on 49-88-2576Gqnodlhwu (Bld) [#/Vol]0.4 10*3/uLNormal0.0-0.8[facility] HospitalComment on above:Performed By: #### T4F, TSH3, FSH, A1C WTH eA, CBC ####[address]#### AMH, [id number], LH, PROG, DHEAS, DHEA, ESTRADIOL ####[facility] ,Monocytes/100 leukocytes in Blood by Automated countOrdered By: Ruddy Mejia on 26-24-4211Xexggbwbv/100 WBC (Bld)6.0 %Normal.[facility] HospitalComment on above:Performed By: #### T4F, TSH3, FSH, A1C WTH eA, CBC ####[address]#### AMH, [id number], LH, PROG, DHEAS, DHEA, ESTRADIOL ####[facility] 0,Neutrophils [#/volume] in Blood by Automated countOrdered By: Ruddy Mejia on 89-65-3406Morborhfurv (Bld) [#/Vol]4.9 10*3/uLNormal1.8-7.7FMemorial Health System Selby General HospitalComment on above:Performed By: #### T4F, TSH3, FSH, A1C WTH eA, CBC ####[place] [address] [place]#### AMH, [id number], LH, PROG, DHEAS, DHEA, ESTRADIOL ####[facility] 0,Neutrophils/100 leukocytes in Blood by Automated countOrdered By: Ruddy Mejia on 61-17-4564Umocmwywsjj/100 WBC (Bld)67.3 %Normal.[facility] HospitalComment on above:Performed By: #### T4F, TSH3, FSH, A1C WTH eA, CBC ####[place] [address] [place]#### AMH, [id number], LH, PROG, DHEAS, DHEA, ESTRADIOL ####[facility] , Nucleated erythrocytes [Presence] in Blood by Automated countOrdered By: Ruddy Mejia on 90-51-5066Jknygbswm RBC Auto Ql (Bld)0.1 /100{WBC}0-0.5FMemorial Health System Selby General HospitalPlatelet mean volume [Entitic volume] in Blood by Automated countOrdered By: Ruddy Mejia on 87-13-6244Sfbkxjkg mean volume (Bld) [Entitic vol]8.3 fLNormal6.3-10.7FMemorial Health System Selby General HospitalComment on above:Performed By: #### T4F, TSH3, FSH, A1C WT eA, CBC ####[facility] [id number] [address]#### AMH, [id number], LH, PROG, DHEAS, DHEA, ESTRADIOL ####[facility] ,Platelets [#/volume] in Blood by Automated countOrdered By: Ruddy Mejia on 61-57-5146Fjpeytfsy (Bld) [#/Vol] 293 10*3/wZTbluyt232-568VwehacpkvMercy Health – The Jewish HospitalComment on above: Performed By: #### T4F, TSH3, FSH, A1C WTH eA, CBC ####[facility] Qwv6182 [address]#### AMH, [id number], LH, PROG, DHEAS, DHEA, ESTRADIOL ####[facility] ,Progesteroneon 09-11-2024 Progesterone3.8 ng/mLNormal.[facility] Physician GroupComment on above:Result Comment: Follicular phase 0.1 - 0.9 Luteal phase 1.8 - 23.9 Ovulation phase 0.1 - 12.0 First trimester 11.0 - 44.3 Second trimester 25.4 - 83.3 Third trimester 58.7 - 214.0 Postmenopausal 0.0 - 0.1 Performed at: [facility] Lab[address] [id number] Press Pipe Inspector: Isaiah Fitzpatrick PhD, Phone: [phone] By: #### T4F, TSH3, FSH, A1C WTH eA, CBC ####[facility] [id number] [place] [id number] [facility]#### AMH, [id number], LH, PROG, DHEAS, DHEA, ESTRADIOL ####[facility] ,Serum or plasma Mullerian inhibiting substance measurement (mass/volume)Ordered By: Ruddy Mejia on 09-76-3017Mqcbnlfco inhibiting substance [Mass/Vol]0.038 ng/mL.[facility] Comment on above:For assays employing antibodies, the possibility exists forinterference by heterophile antibodies in the samples.11.Kasandra Mukherjee Interferences in Immunoassays - still a threat. Clin. Chem. 2000; 46: 1037- 1038.This test was developed and its performance characteristicsdetermined by [employer]. It has not been cleared or approvedby the Food and Drug Administration.Reference Range:Females 31 - 35y: 0.66 -8.75Median 3.00AMH concentrations of >= 1.06 ng/mL is correlated with abetter response to ovarian stimulation, produced moreretrievable oocytes and higher odds of live accordingto Hossein et al. Fertility and Sterility. 2010:94:8370-2515. The current AMH test method correlates withthe study method with a slope of 0.94.Females at risk of ovarian hyperstimulation syndrome orpolycystic ovarian syndrome (PCOS) may exhibit elevatedserum AMH concentrations. AMH levels from PCOS patientsmay be 2 to 5 fold higher than age-appropriate referenceinterval values.Granulosa cell tumors of the ovary may secrete AMH alongwith other tumor markers. Elevated AMH is not specific formalignancy, and the assay should not be used exclusively todiagnose or exclude an AMH-secreting ovarian tumor.Performed at: [email or web address] [address] [id number] Director: Adi Fry MD, Phone: [phone] or plasma calcitriol measurement (mass/volume)Ordered By: Ruddy Mejia on ,25- dihydroxyvitamin D3 [Mass/Vol]52.6 pg/mL24.8-81.5FMemorial Health System Selby General HospitalComment on above:Performed at: [address], [place] [id number] Director: Merlyn Sanders MD, Phone: [phone] or plasma estradiol (E2) measurement (mass/volume)Ordered By: Ruddy Mejia on 57-71-9152O2 [Mass/Vol]127.0 pg/mL.[facility] HospitalComment on above:Adult Female Range Follicular phase 12.5 - 166.0 Ovulation phase 85.8 - 498.0 Luteal phase 43.8 - 211.0 Postmenopausal <6.0 - 54.7 1st trimester 215.0 - >4300.0Roche ECLIA methodologyPerformed at: [facility] [id number] Director: Isaiah Fitzpatrick PhD, Phone: [phone] or plasma lutropin measurement (units/volume)Ordered By: Ruddy Mejia on 10-17-9971Swzdesvp Qn7.3 m[IU]/mL.[facility] HospitalComment on above:Adult Female Range Follicular phase 2.4 - 12.6 Ovulation phase 14.0 - 95.6 Luteal phase 1.0 - 11.4 Postmenopausal 7.7 - 58.5Serum or plasma progesterone measurement (mass/volume)Ordered By: Ruddy Mejia on 10-13-8775Fskpmgscdvpu [Mass/Vol]3.8 ng/mL.[facility] Comment on above:Follicular phase 0.1 - 0.9 Luteal phase 1.8 - 23.9 Ovulation phase 0.1 - 12.0 First trimester 11.0 - 44.3 Second trimester 25.4 - 83.3 Third trimester 58.7 - 214.0 Postmenopausal 0.0 - 0.1Performed at: [facility] [id number] Director: Isaiah Werner, Phone: [phone] [Units/volume] in Serum or Plasma Ordered By: Ruddy Mejia on 50-58-7173AJK Qn2.29 m[IU]/LNormal0.45-5.33[facility] HospitalComment on above:Performed By: #### T4F, TSH3, FSH, A1C WTH eA, CBC ####[facility] Pxj4656 [address]#### AMH, [id number], LH, PROG, DHEAS, DHEA, ESTRADIOL ####[facility] ,Thyroxine (T4) free [Mass/volume] in Serum or PlasmaOrdered By: Ruddy Mejia on 37-14-1519Qzqh T4 [Mass/Vol]0.75 ng/dLNormal0.61-1.12[facility] HospitalComment on above:Performed By: #### T4F, TSH3, FSH, A1C [facility] eA, CBC ####[facility] [address] [place] [id number] [facility]#### AMH, [id number], LH, PROG, DHEAS, DHEA, ESTRADIOL ####[facility] ,Choriogonadotropin.beta subunit [Units/volume] in Serum or Plasma Ordered By: Ruddy Mejia on 65-17-5175TFR.beta subunit QnChoriogonadotropin.beta subunit [Units/volume] in Serum or PlasmaMercy Health – The Jewish Hospital Comment on above:Approximate Approximate hCG Gestational Age Range (mIU/ml) (weeks)0.2-1 5-50 1-2 50-500 2-3 100-5,000 3-4 500-10,000 4-5 1,000-50,000 5-6 10,000-100,000 6-8 15,000-200,000 8-12 10,000-100,000HCG.beta subunit Qn1.28 m[IU]/mLMercy Health – The Jewish HospitalComment on above:Approximate Approximate hCG Gestational Age Range (mIU/ml) (weeks)0.2-1 5-50 1-2 50-500 2-3 100-5,000 3-4 500-10,000 4-5 1,000-50,000 5-6 10,000-100,000 6-8 15,000-200,000 8-12 10,000-100,000HCG,Quantitativeon 91-20-4940XYU,Quantitative1.28 m[iU]/mL NormalThe [facility] Physician GroupComment on above:Result Comment: Approximate Approximate hCG Gestational Age Range (mIU/ml) (weeks) 0.2-1 5-50 1-2 50-500 2-3 100-5,000 3-4 500-10,000 4-5 1,000-50,000 5-6 10,000-100,000 6-8 15,000-200,000 8-12 10,000-100,000 PERFORMED BY: [facility] [address] [place] [address] PATHOLOGIST SPRAY DYER JOHANN TRINIDAD M.D.Performed By: #### HCGQNT ####[facility] [address] [place] [address] [place]hCG, quantitative, pregnancyon 02-85-4174RCF,QUANTITATIVE1.28 m[iU]/[facility] HealthcareComment on above: Approximate Approximate hCG Gestational Age Range (mIU/ml) (weeks) 0.2-1 5-50 1-2 50-500 2-3 100-5,000 3-4 500-10,000 4-5 1,000-50,000 5-6 10,000-100,000 6-8 15,000-200,000 8-12 10,000-100,000 [facility] HealthcareChoriogonadotropin.beta subunit [Units/volume] in Serum or Plasma Ordered By: Ruddy Mejia on 26-66-8128DPA.beta subunit QnChoriogonadotropin.beta subunit [Units/volume] in Serum or PlasmaMercy Health – The Jewish Hospital Comment on above:Approximate Approximate hCG Gestational Age Range (mIU/ml) (weeks)0.2-1 5-50 1-2 50-500 2-3 100-5,000 3-4 500-10,000 4-5 1,000-50,000 5-6 10,000-100,000 6-8 15,000-200,000 8-12 10,000-100,000HCG.beta subunit Qn25.47 m[IU]/mLMercy Health – The Jewish HospitalComment on above:Approximate Approximate hCG Gestational Age Range (mIU/ml) (weeks)0.2-1 5-50 1-2 50-500 2-3 100-5,000 3-4 500-10,000 4-5 1,000-50,000 5-6 10,000-100,000 6-8 15,000-200,000 8-12 10,000-100,000HCG,Quantitativeon 41-18-7925OAK,Vqizttofrpob54.47 m[iU]/mL NormalThe [facility] Physician GroupComment on above:Result Comment: Approximate Approximate hCG Gestational Age Range (mIU/ml) (weeks) 0.2-1 5-50 1-2 50-500 2-3 100-5,000 3-4 500-10,000 4-5 1,000-50,000 5-6 10,000-100,000 6-8 15,000-200,000 8-12 10,000-100,000 PERFORMED BY: [address] [address] PATHOLOGIST SPRAY DYER JOHANN TRINIDAD M.D.Performed By: #### HCGQNT #### [address] [address] USAhCG, quantitative, pregnancyon [id number],QUANTITATIVE 25.47 m[iU]/mLNOMS HealthcareComment on above:Approximate Approximate hCG Gestational Age Range (mIU/ml) (weeks) 0.2-1 5-50 1-2 50-500 2-3 100-5,000 3-4 500-10,000 4-5 1,000-50,000 5-6 10,000-100,000 6-8 15,000-200,000 8-12 10,000-100,000 N[facility] HealthcareUrinalysis macro (dipstick) panel (U)on [id number], UA NegativeNegative - 4(70) +++ mg/dLNOMS HealthcareBlood, UANegativeNegative - 50 Arturo/mcLNOMS HealthcareClarity, UAClearNOMS HealthcareColor, UAYellowNOMS HealthcareGlucose, UANegativeNegative - 2000(110) ++++ mg/dLNOMS Healthcare Interpretation and review of laboratory resultsNormalNOMS HealthcareKetones, UA NegativeNegative - 160(16) ++++ mg/dLNOMS HealthcareLeukocytes, UANegative Negative - 500+++ Jaylon/mcLNOOR HealthcareNitrite, UANegativeNegative - Positive NOMS HealthcarepH, UA6.55 - 9NOOR HealthcareProtein, UANegativeNegative - 2000(20) ++++ mg/dLBLUE MOUNTAIN [facility]ITAL HealthcareSpec Grav, UA1.021 - 1.03NOKindred Hospital Urobilinogen, UA0.20.2 - 12 mg/dLSwain Community HospitalPathology study report documentOrdered By: Oliver Eller on [id number] studyMercy Health – [facility] Other Basophils Auto (Bld) [#/Vol]on 19-24-9681Nqwsbnpfe (Bld) [#/Vol]Automated basophil count0.0-0.1FMemorial [facility] Basophils (Bld) [#/Vol]0.0 10 3/uL0.0-0.1FMemorial Health System [facility] Basophils/100 WBC Auto (Bld)on 03-24-6130Nzblvlrdc/100 WBC (Bld)Automated basophil %0.2-2.0[facility] HospitalBasophils/100 WBC (Bld)0.3 % 0.2-2.0[facility] HospitalEosinophils/100 WBC Auto (Bld)on 98-69-5521Fpckvmexwaf/100 WBC (Bld)Automated eosinophil %Low0.9-7.0[facility] HospitalEosinophils/100 WBC (Bld)0.2 %Low0.9-7.0[facility] HospitalErythrocyte distribution width Auto (RBC) [Ratio]on 26-78-5441Ovvemynzxls distribution width (RBC) [Ratio]Erythrocyte distribution width [Ratio] by Automated count11.0-15.0[facility] Erythrocyte distribution width (RBC) [Ratio]12.3 %11.0-15.0[facility] HospitalEstimated glomerular filtration rate (GFR) non- Americanon 16-82-3367XTB/1.73 sq M.predicted among non-blacks MDRD (S/P/Bld) [Vol rate/Area]Estimated glomerular filtration rate (GFR) non->=60 mL/min/1.73m 2FMemorial Health System Selby General HospitalGFR/1.73 sq M.predicted among non-blacks MDRD (S/P/Bld) [Vol rate/Area]mL/min/{1.73_m2}>=60 mL/min/1.73m 2 [facility] HospitalGlobulin Calc (S) [Mass/Vol]on 07-11-2024 Globulin (S) [Mass/Vol]Serum globulin measurement by calculation (mass/volume) [facility] HospitalGlobulin (S) [Mass/Vol]3.1 g/dLMercy Health – The Jewish HospitalHematocrit Auto (Bld) [Volume fraction]on 07-11-2024 Hematocrit (Bld) [Volume fraction]Hematocrit [Volume Fraction] of Blood by Automated count36.0-48.0[facility] HospitalHematocrit (Bld) [Volume fraction]39.7 %36.0-48.0[facility] HospitalHemoglobin [Mass/volume] in Bloodon 31-70-9625Krrttnrlqd (Bld) [Mass/Vol]Hemoglobin [Mass/volume] in Blood12.0-16.0[facility] HospitalHemoglobin (Bld) [Mass/Vol]12.8 g/dL12.0-16.0[facility] HospitalLaboratory - Chemistry and Chemistry - challengeon 76-46-0398Hbdepgz [Mass/Vol]3.6 g/dL 3.4-5.0[facility] HospitalALP [Catalytic activity/Vol]57 U/L46-116 [facility] HospitalALT [Catalytic activity/Vol]24 U/L14-59 [facility] HospitalAST [Catalytic activity/Vol]12 U/CIbl68-39 [facility] HospitalBilirubin [Mass/Vol]0.3 mg/dL0.2-1.0[facility] HospitalCalcium [Mass/Vol]8.6 mg/dL8.5-10.1FMemorial Health System Selby General HospitalChloride [Moles/Vol]106 mmol/H00-186CgcpbicdtMercy Health – [facility] Jewish HospitalCO2 [Moles/Vol]29.1 mmol/L21.0-32.0[facility] Creatinine [Mass/Vol]0.87 mg/dL0.55-1.02[facility] GFR/1.73 sq M.predicted MDRD (S/P/Bld) [Vol rate/Area]mL/min/{1.73_m2}>=60 mL/min/1.73m 2FMemorial Health System Selby General HospitalGlucose [Mass/Vol]101 mg/jF68-420 [facility] HospitalLipase [Catalytic activity/Vol]23.0 U/L 16.0-77.0[facility] HospitalPotassium [Moles/Vol]3.6 mmol/L3.5-5.1 [facility] HospitalProtein [Mass/Vol]6.7 g/dL6.4-8.2FWexner Medical Centerodium [Moles/Vol]141 mmol/P779-783XjyoudksoMercy Health – The Jewish HospitalUrea nitrogen [Mass/Vol]10.0 mg/dL7.0-18.0[facility] HospitalUrea nitrogen/Creatinine [Mass ratio]11.5 mg/mgMercy Health – The Jewish HospitalLaboratory - Hematology and Cell countson 66-73-5267Qncvimxe granulocytes/100 WBC (Bld)0.2 %0.0-0.5FMemorial Health System Selby General Hospital Leukocytes [#/volume] corrected for nucleated erythrocytes in Blood by Automated counon 35-97-6955JPO corrected for nucl RBC Auto (Bld) [#/Vol]Leukocytes [#/volume] corrected for nucleated erythrocytes in Blood by Automated counHigh 4.0-11.0[facility] HospitalWBC corrected for nucl RBC Auto (Bld) [#/Vol]12.1 10 3/uLHigh4.0-11.0[facility] HospitalLymphocytes Auto (Bld) [#/Vol]on 81-24-6070Jbiwodaopgw (Bld) [#/Vol]Lymphocytes [#/volume] in Blood by Automated count1.2-3.8[facility] HospitalLymphocytes (Bld) [#/Vol]3.5 10 3/uL1.2-3.8[facility] HospitalLymphocytes/100 WBC Auto (Bld)on 55-64-3656Ofsnxnpxuyq/100 WBC (Bld)Lymphocytes/100 leukocytes in Blood by Automated count20.5-60.0[facility] Lymphocytes/100 WBC (Bld)28.6 %20.5-60.0[facility] HospitalH Auto (RBC) [Entitic mass]on 13-12-0596QYR (RBC) [Entitic mass]MCH [Entitic mass] by Automated count26.7-34.0[facility] (RBC) [Entitic mass]29.6 pg26.7-34.0[facility] Auto (RBC) [Mass/Vol] on 37-35-3402BIGY (RBC) [Mass/Vol]MCHC [Mass/volume] by Automated count29.9-35.2 [facility] HospitalHC (RBC) [Mass/Vol]32.2 g/dL29.9-35.2 [facility] HospitalV Auto (RBC) [Entitic vol]on 84-73-6657XFH (RBC) [Entitic vol]MCV [Entitic volume] by Automated count81.0-99.0[facility] HospitalV (RBC) [Entitic vol]91.9 fL81.0-99.0[facility] HospitalMonocytes Auto (Bld) [#/Vol]on 98-13-8924Yhscfakoy (Bld) [#/Vol] Automated blood monocyte count0.3-0.8[facility] HospitalMonocytes (Bld) [#/Vol]0.8 10 3/uL0.3-0.8[facility] HospitalMonocytes/100 WBC Auto (Bld)on 27-81-4367Irxwadajq/100 WBC (Bld)Automated monocyte %1.7-12.0 [facility] HospitalMonocytes/100 WBC (Bld)6.5 %1.7-12.0[facility] HospitalNeutrophils Auto (Bld) [#/Vol]on 51-48-1719Daxxhevwnlf (Bld) [#/Vol]Neutrophils [#/volume] in Blood by Automated countHigh1.4-6.5 [facility] HospitalNeutrophils (Bld) [#/Vol]7.8 10 3/uLHigh1.4-6.5 [facility] HospitalNeutrophils/100 WBC Auto (Bld)on 07-11-2024 Neutrophils/100 WBC (Bld)Automated neutrophil %43.0-75.0[facility] HospitalNeutrophils/100 WBC (Bld)64.2 %43.0-75.0[facility] HospitalNo Panel Informationon 93-04-6679Xfqchoracns # (Auto)0.0 10 3/uL0.0-0.7 [facility] HospitalImmature Granulocyte # (Auto)0.02 10 3/uL 0.00-0.03[facility] HospitalPlatelet mean volume Auto (Bld) [Entitic vol]on 84-79-5327Gdeuijfv mean volume (Bld) [Entitic vol]Platelet mean volume [Entitic volume] in Blood by Automated countLow9.5-13.5FMemorial Health System Selby General HospitalPlatelet mean volume (Bld) [Entitic vol]9.1 fLLow9.5-13.5FMemorial Health System Selby General HospitalPlatelets Auto (Bld) [#/Vol]on 50-02-7946Jtktbuzxx (Bld) [#/Vol]Platelets [#/volume] in Blood by Automated vizpj205-655SisdyfzicMercy Health – The Jewish HospitalPlatelets (Bld) [#/Vol]304 10 3/sD505-429WfzuufjdzMercy Health – The Jewish HospitalRBC Auto (Bld) [#/Vol]on 99-43-8137QDR (Bld) [#/Vol]Erythrocytes [#/volume] in Blood by Automated count4.20-5.40[facility] RBC (Bld) [#/Vol]4.32 10 6/uL4.20-5.40[facility] Medical Centererum or plasma albumin/globulin mass ratioon 17-90-1427Guyzmsh/Globulin [Mass ratio] Serum or plasma albumin/globulin mass ratioMercy Health – The [facility] Hospital Albumin/Globulin [Mass ratio]1.2 {ratio}[facility] Centererum or plasma anion gap determinationon 18-87-0230Etfal gap [Moles/Vol]Serum or plasma anion gap determinationMercy Health – The Jewish HospitalAnion gap [Moles/Vol]9.5 mmol/LFMemorial Health System Selby General HospitalBasophils Auto (Bld) [#/Vol]on 06-47-4063Fpcwtemah (Bld) [#/Vol]Automated basophil count0.0-0.1 [facility] HospitalBasophils (Bld) [#/Vol]0.0 10 3/uL0.0-0.1 [facility] HospitalBasophils/100 WBC Auto (Bld)on 07-10-2024 Basophils/100 WBC (Bld)Automated basophil %0.2-2.0[facility] HospitalBasophils/100 WBC (Bld)0.3 %0.2-2.0[facility] Eosinophils/100 WBC Auto (Bld)on 94-85-9749Rsghxcvwhvm/100 WBC (Bld)Automated eosinophil %Low0.9-7.0[facility] HospitalEosinophils/100 WBC (Bld) 0.1 %Low0.9-7.0[facility] HospitalErythrocyte distribution width Auto (RBC) [Ratio]on 23-55-6163Zrcwypvlxzs distribution width (RBC) [Ratio] Erythrocyte distribution width [Ratio] by Automated count11.0-15.0[facility] HospitalErythrocyte distribution width (RBC) [Ratio]12.0 % 11.0-15.0[facility] HospitalHematocrit Auto (Bld) [Volume fraction]on 64-82-0230Funbwciech (Bld) [Volume fraction]Hematocrit [Volume Fraction] of Blood by Automated count36.0-48.0[facility] Hematocrit (Bld) [Volume fraction]42.8 %36.0-48.0[facility] HospitalHemoglobin [Mass/volume] in Bloodon 23-50-2680Ltuwioofcc (Bld) [Mass/Vol] Hemoglobin [Mass/volume] in Blood12.0-16.0[facility] Hemoglobin (Bld) [Mass/Vol]14.1 g/dL12.0-16.0[facility] HospitalL on 07-10-2024L Specimen: [id number] Received: 07/11/24 Status: JOHN Tracy Num: [id number] Spec Type: Surgical Subm Dr: Ruddy Mejia Tissues: FALLOPIAN TUBE ECTOPIC (LEFT FALLOPIAN TUBE) Procedures: HE/3 Age/ Patient Sex Location Account Attending Physician Jessica Valdez 34/F LABELL [id number] Ruddy Mejia SPEC NUM: [id number] RECD: 07/11/24 STATUS: JOHN TRACY NUM: [id number] NIC: 07/10/24 SUBM : Ruddy Mejia ENTERED: 07/11/[address]: Jack,Lab SPEC TYPE: Surgical DEPT: JACKIE HAWLEY ENTERED BY: [id number] RECV BY: [id number] ORDERED: ORDERED: Pathological Diagnosis Left fallopian tube, left salpingectomy - Left fallopian tube with immature first trimester chorionic villi and hemorrhage consistent with ectopic tubal . Clinical Information Ruptured ectopic and endometriosis Gross Description Received in formalin labeled with the patients name, date of , and left fallopian tube is a fallopian tube with fimbriated distal end, 7 cm in length, ranging from 0.6 to 1.5 cm in diameter. The serosa is sullivan-purple, smooth and glistening. Serial sections reveal a dilated lumen, with an identifiable portion of possible chorionic villi, 0.9 x 1 x 0.8 cm. No tissue is identified. The fimbriated end is trisected and entirely submitted in A1 with the entirety of the possible chorionic villi submitted in A2?A3. (2, , [id number] A) Microscopic Description Microscopic examination is performed. Specimen: [id number] Received: 07/11/24 Status: JOHN Vero Num: [id number] Spec Type: Surgical Subm : Ruddy Mejia Tissues: FALLOPIAN TUBE ECTOPIC (LEFT FALLOPIAN TUBE) Procedures: Patient: Jessica Valdez [id number] (Continued) Specimen: [id number] Received: 07/11/24 (Continued) Signed (signature on file) Oliver Eller MD 07/12/24 1026 Specimen: [id number] Received: 07/11/24 Status: JOHN Tracy Num: [id number] Spec Type: Surgical Subm Dr: Ruddy Mejia Tissues: FALLOPIAN TUBE ECTOPIC (LEFT FALLOPIAN TUBE) Procedures: HE/3 Patient: KylerJessica dalal [id number] (Continued) Specimen: [id number] Received: 07/11/24 (Continued) CPT Codes 43761 Specimen: [id number] Received: 07/11/24 Status: JOHN Tracy Num: [id number] Spec Type: Surgical Subm Dr: Ruddy Mejia Tissues: FALLOPIAN TUBE ECTOPIC (LEFT FALLOPIAN TUBE) Procedures: HE/3 Patient: Jessica Valdez [id number] (Continued) Signed (signature on file) Oliver Eller MD 07/12/24 1026Normal [facility] GroupLaboratory - Hematology and Cell countson 75-34-1236Wtfycuym granulocytes/100 WBC (Bld)0.2 %0.0-0.5FMemorial Health System Selby General HospitalLeukocytes [#/volume] corrected for nucleated erythrocytes in Blood by Automated counon 13-39-4662UCN corrected for nucl RBC Auto (Bld) [#/Vol]Leukocytes [#/volume] corrected for nucleated erythrocytes in Blood by Automated coun4.0-11.0[facility] HospitalWBC corrected for nucl RBC Auto (Bld) [#/Vol]9.1 10 3/uL4.0-11.0[facility] Lymphocytes Auto (Bld) [#/Vol]on 71-26-7386Ywqekvyuvsv (Bld) [#/Vol]Lymphocytes [#/volume] in Blood by Automated count1.2-3.8[facility] Lymphocytes (Bld) [#/Vol]1.8 10 3/uL1.2-3.8[facility] Lymphocytes/100 WBC Auto (Bld)on 47-97-3239Gsmhbvrytky/100 WBC (Bld) Lymphocytes/100 leukocytes in Blood by Automated luqwyUit21.5-60.0[facility] HospitalLymphocytes/100 WBC (Bld)19.5 %Low20.5-60.0[facility] Auto (RBC) [Entitic mass]on 04-19-6949SSO (RBC) [Entitic mass]MCH [Entitic mass] by Automated count26.7-34.0[facility] (RBC) [Entitic mass]29.9 pg26.7-34.0[facility] HospitalHC Auto (RBC) [Mass/Vol]on 66-17-8495GQGZ (RBC) [Mass/Vol]MCHC [Mass/volume] by Automated count29.9-35.2FGrand Lake Joint Township District Memorial HospitalHC (RBC) [Mass/Vol]32.9 g/dL29.9-35.2FGrand Lake Joint Township District Memorial HospitalV Auto (RBC) [Entitic vol]on 48-83-5567NVM (RBC) [Entitic vol]MCV [Entitic volume] by Automated count81.0-99.0[facility] CenterMCV (RBC) [Entitic vol] 90.7 fL81.0-99.0[facility] HospitalMonocytes Auto (Bld) [#/Vol]on 00-00-4115Zqcgwxrgr (Bld) [#/Vol]Automated blood monocyte count0.3-0.8[facility] HospitalMonocytes (Bld) [#/Vol]0.4 10 3/uL0.3-0.8[facility] HospitalMonocytes/100 WBC Auto (Bld)on 14-38-9124Anwdfqujw/100 WBC (Bld)Automated monocyte %1.7-12.0[facility] Monocytes/100 WBC (Bld)4.7 %1.7-12.0[facility] HospitalNeutrophils Auto (Bld) [#/Vol]on 77-43-8684Asckhannipu (Bld) [#/Vol]Neutrophils [#/volume] in Blood by Automated countHigh1.4-6.5FMemorial Health System [facility] Hospital Neutrophils (Bld) [#/Vol]6.8 10 3/uLHigh1.4-6.5FMemorial Health System [facility] Hospital Neutrophils/100 WBC Auto (Bld)on 24-01-6117Nmcipzmntge/100 WBC (Bld)Automated neutrophil %High43.0-75.0[facility] HospitalNeutrophils/100 WBC (Bld)75.2 %High43.0-75.0[facility] HospitalNo Panel Informationon 00-59-4153Dhesprccfae # (Auto)0.0 10 3/uL0.0-0.7FMemorial Health System Selby General HospitalHuman Chorionic Gonadotropin, Rvmhq1802 mIU/mLMercy Health – The Jewish HospitalComment on above:5-50 0.2-1 ABCL88-343 1-2 HLBHR686-1,000 2-3 KUMQV731- 10,000 3-4 WEEKS1,000-50,000 4-5 WEEKS10,000-100,000 5-6 WEEKS15,000-200,000 6-8 WEEKS10,000-100,000 2-3 MONTHSImmature Granulocyte # (Auto)0.02 10 3/uL 0.00-0.03[facility] HospitalPlatelet mean volume Auto (Bld) [Entitic vol]on 89-40-3145Ouwfjdji mean volume (Bld) [Entitic vol]Platelet mean volume [Entitic volume] in Blood by Automated countLow9.5-13.5FMemorial Health System Selby General HospitalPlatelet mean volume (Bld) [Entitic vol]8.9 fLLow9.5-13.5FMemorial Health System Selby General HospitalPlatelets Auto (Bld) [#/Vol]on 86-94-1579Gqsfgqhuj (Bld) [#/Vol]Platelets [#/volume] in Blood by Automated sjifl807-145UsfmolluwMercy Health – The Jewish HospitalPlatelets (Bld) [#/Vol]329 10 3/nE751-778MdedeftlzMercy Health – The Jewish HospitalRBC Auto (Bld) [#/Vol]on 43-79-4374NGE (Bld) [#/Vol]Erythrocytes [#/volume] in Blood by Automated count4.20-5.40[facility] RBC (Bld) [#/Vol]4.72 10 6/uL4.20-5.40[facility] Choriogonadotropin.beta subunit [Units/volume] in Serum or PlasmaOrdered By: Riddhi Villar on 41-01-5630KTD.beta subunit QnChoriogonadotropin.beta subunit [Units/volume] in Serum or PlasmaMercy Health – The Jewish HospitalComment on above:Approximate Approximate hCG Gestational Age Range (mIU/ml) (weeks)0.2-1 5- 50 1-2 50-500 2-3 100-5,000 3-4 500-10,000 4-5 1,000-50,000 5-6 10,000-100,000 6-8 15,000-200,000 8-12 10,000-100,000HCG.beta subunit Ff7647.00 m[IU]/mL [facility] HospitalComment on above:Approximate Approximate hCG Gestational Age Range (mIU/ml) (weeks)0.2-1 5-50 1-2 50-500 2-3 100-5,000 3-4 500-10,000 4-5 1,000-50,000 5-6 10,000-100,000 6-8 15,000-200,000 8-12 10,000-100,000HCG,Quantitativeon 65-07-2008HMZ,Kezphfoajpaw4885.00 m[iU]/mL NormalThe Formerly [facility] Physician GroupComment on above:Result Comment: Approximate Approximate hCG Gestational Age Range (mIU/ml) (weeks) 0.2-1 5-50 1-2 50-500 2-3 100-5,000 3-4 500-10,000 4-5 1,000-50,000 5-6 10,000-100,000 6-8 15,000-200,000 8-12 10,000-100,000 PERFORMED BY: [facility] [address] [place] [address] PATHOLOGIST SPRAY DYER FILIBERTO APPIAH M.D.Performed By: #### HCGQNT ####[facility] [address] [place] [address] USAhCG, quantitative, pregnancyon 89-35-0730NXG,JRERQYWOLOLV0222 m[iU]/mLNOMS HealthcareComment on above: Approximate Approximate hCG Gestational Age Range (mIU/ml) (weeks) 0.2-1 5-50 1-2 50-500 2-3 100-5,000 3-4 500-10,000 4-5 1,000-50,000 5-6 10,000-100,000 6-8 15,000-200,000 8-12 10,000-100,000 NOM[facility] HealthcareBasophils Auto (Bld) [#/Vol]on 69-57-5789Xdsldofgy (Bld) [#/Vol] Automated basophil count0.0-0.1FMemorial Health System Selby General HospitalBasophils (Bld) [#/Vol]0.0 10 3/uL0.0-0.1FMemorial Health System Selby General HospitalBasophils/100 WBC Auto (Bld)on 40-95-7957Wlonzdkot/100 WBC (Bld)Automated basophil %0.2-2.0[facility] HospitalBasophils/100 WBC (Bld)0.5 %0.2-2.0[facility] HospitalEosinophils/100 WBC Auto (Bld)on 87-58-6691Oqddijhaggn/100 WBC (Bld)Automated eosinophil %Low0.9-7.0[facility] Eosinophils/100 WBC (Bld)0.2 %Low0.9-7.0[facility] Erythrocyte distribution width Auto (RBC) [Ratio]on 90-72-6663Xriidnkeoqk distribution width (RBC) [Ratio]Erythrocyte distribution width [Ratio] by Automated count11.0-15.0[facility] HospitalErythrocyte distribution width (RBC) [Ratio]12.1 %11.0-15.0[facility] Estimated glomerular filtration rate (GFR) non- Americanon 07-07-2024 GFR/1.73 sq M.predicted among non-blacks MDRD (S/P/Bld) [Vol rate/Area]Estimated glomerular filtration rate (GFR) non->=60 mL/min/1.73m 2 [facility] HospitalGFR/1.73 sq M.predicted among non-blacks MDRD (S/P/Bld) [Vol rate/Area]mL/min/{1.73_m2}>=60 mL/min/1.73m 2FMemorial Health System Selby General HospitalGlobulin Calc (S) [Mass/Vol]on 09-88-2494Wxwdlwbk (S) [Mass/Vol] Serum globulin measurement by calculation (mass/volume)[facility] HospitalGlobulin (S) [Mass/Vol]3.1 g/dLMercy Health – The [facility] Hospital Hematocrit Auto (Bld) [Volume fraction]on 52-65-2339Iszqzpksbb (Bld) [Volume fraction]Hematocrit [Volume Fraction] of Blood by Automated count36.0-48.0 [facility] HospitalHematocrit (Bld) [Volume fraction]41.9 % 36.0-48.0[facility] HospitalHemoglobin [Mass/volume] in Bloodon 73-95-9573Lqdryackpp (Bld) [Mass/Vol]Hemoglobin [Mass/volume] in Blood12.0-16.0 [facility] HospitalHemoglobin (Bld) [Mass/Vol]13.9 g/dL12.0-16.0 [facility] HospitalLaboratory - Chemistry and Chemistry - challengeon 00-18-7724Yaeilim [Mass/Vol]4.0 g/dL3.4-5.0[facility] HospitalALP [Catalytic activity/Vol]61 U/T61-918CttmcwnlzMercy Health – The Jewish HospitalALT [Catalytic activity/Vol]21 U/A91-40XeysuzjqlMercy Health – The Jewish Hospital AST [Catalytic activity/Vol]13 U/KZyb25-70PpzubueqyMercy Health – [facility] Hospital Bilirubin [Mass/Vol]0.5 mg/dL0.2-1.0[facility] HospitalCalcium [Mass/Vol]9.1 mg/dL8.5-10.1FMemorial Health System Selby General HospitalChloride [Moles/Vol] 105 mmol/M53-986BzalvzlrfMercy Health – The Jewish HospitalCO2 [Moles/Vol]28.3 mmol/L 21.0-32.0[facility] HospitalCreatinine [Mass/Vol]0.86 mg/dL 0.55-1.02[facility] HospitalGFR/1.73 sq M.predicted MDRD (S/P/Bld) [Vol rate/Area]mL/min/{1.73_m2}>=60 mL/min/1.73m 2FMemorial Health System Selby General HospitalGlucose [Mass/Vol]107 mg/nQZgwh28-397QcbrmafcxMercy Health – [facility] Hospital Potassium [Moles/Vol]3.9 mmol/L3.5-5.1FMemorial Health System Selby General HospitalProtein [Mass/Vol]7.1 g/dL6.4-8.2FWexner Medical Centerodium [Moles/Vol]144 mmol/V380-064YigaoaidbMercy Health – The Jewish HospitalUrea nitrogen [Mass/Vol]10.0 mg/dL 7.0-18.0[facility] HospitalUrea nitrogen/Creatinine [Mass ratio] 11.6 mg/mgMercy Health – The Jewish HospitalBilirubin Ql (U)NegativeNEGATIVE [facility] HospitalGlucose (U) [Mass/Vol]NegativeNEGATIVEMercy Health – The Jewish HospitalKetones Ql (U)NegativeNEGATIVEMercy Health – The Jewish HospitalpH (U)6.5 [pH]5.0-9.0[facility] Centerpecific gravity (U) [Rel density]<=1.377Mhsjibuk2.005-1.025[facility] Urobilinogen Qn (U)0.2 {Sabino'U}/dL0.2-1.0[facility] Laboratory - Hematology and Cell countson 08-44-8272Fkqxklfm granulocytes/100 WBC (Bld)0.2 %0.0-0.5FMemorial Health System Selby General HospitalLaboratory - Specimen informationon 77-50-2110Xmnlwovtjd (U)CLEARCLEARFMemorial Health System Selby General HospitalColor (U)LT. YELLOWYELLOWMercy Health – The Jewish HospitalLaboratory - Urinalysison 14-40-8725Qhciwneua esterase Test strip Ql (U)TRACEAbnormalNEGATIVE [facility] HospitalMucus Ql (Urine sed)NONE SEENNONE SEENMercy Health – The Jewish HospitalNitrite Ql (U)NegativeNEGATIVEMercy Health – The Jewish HospitalProtein Ql (U)NegativeNEG/TRACEMercy Health – The Jewish HospitalLeukocytes [#/volume] corrected for nucleated erythrocytes in Blood by Automated counon 83-67-5007NNB corrected for nucl RBC Auto (Bld) [#/Vol]Leukocytes [#/volume] corrected for nucleated erythrocytes in Blood by Automated coun4.0-11.0[facility] HospitalWBC corrected for nucl RBC Auto (Bld) [#/Vol]8.9 10 3/uL 4.0-11.0[facility] HospitalLymphocytes Auto (Bld) [#/Vol]on 81-72-9592Deoupbzxqna (Bld) [#/Vol]Lymphocytes [#/volume] in Blood by Automated count1.2-3.8[facility] HospitalLymphocytes (Bld) [#/Vol]2.1 10 3/uL1.2-3.8[facility] HospitalLymphocytes/100 WBC Auto (Bld)on 16-56-2770Lusklxxlktf/100 WBC (Bld)Lymphocytes/100 leukocytes in Blood by Automated count20.5-60.0[facility] HospitalLymphocytes/100 WBC (Bld)23.2 %20.5-60.0[facility] HospitalMCH Auto (RBC) [Entitic mass]on 32-81-1204KFJ (RBC) [Entitic mass]MCH [Entitic mass] by Automated count 26.7-34.0[facility] (RBC) [Entitic mass]30.2 pg 26.7-34.0[facility] HospitalHC Auto (RBC) [Mass/Vol]on 80-29-9631NCEK (RBC) [Mass/Vol]MCHC [Mass/volume] by Automated count29.9-35.2 [facility] HospitalHC (RBC) [Mass/Vol]33.2 g/dL29.9-35.2 [facility] HospitalV Auto (RBC) [Entitic vol]on 64-53-1142UTT (RBC) [Entitic vol]MCV [Entitic volume] by Automated count81.0-99.0[facility] HospitalV (RBC) [Entitic vol]91.1 fL81.0-99.0[facility] HospitalMonocytes Auto (Bld) [#/Vol]on 44-50-5354Rscsxvyrl (Bld) [#/Vol] Automated blood monocyte count0.3-0.8[facility] HospitalMonocytes (Bld) [#/Vol]0.5 10 3/uL0.3-0.8[facility] HospitalMonocytes/100 WBC Auto (Bld)on 65-61-6564Efigefqja/100 WBC (Bld)Automated monocyte %1.7-12.0 [facility] HospitalMonocytes/100 WBC (Bld)5.3 %1.7-12.0[facility] HospitalNeutrophils Auto (Bld) [#/Vol]on 25-46-0338Edylglduuwb (Bld) [#/Vol]Neutrophils [#/volume] in Blood by Automated count1.4-6.5FMemorial Health System Selby General HospitalNeutrophils (Bld) [#/Vol]6.3 10 3/uL1.4-6.5FMemorial Health System Selby General HospitalNeutrophils/100 WBC Auto (Bld)on 07-07-2024 Neutrophils/100 WBC (Bld)Automated neutrophil %43.0-75.0[facility] CenterNeutrophils/100 WBC (Bld)70.6 %43.0-75.0[facility] HospitalNo Panel Informationon 77-94-0801Lnwystpfhee # (Auto)0.0 10 3/uL0.0-0.7 [facility] HospitalHuman Chorionic Gonadotropin, Oxgit3110 mIU/mL [facility] HospitalComment on above:5-50 0.2-1 IQGO28-086 1-2 JMPIU823-7,000 2-3 HEJIZ640-87,000 3-4 WEEKS1,000-50,000 4-5 WEEKS10,000-100,000 5-6 WEEKS15,000-200,000 6-8 WEEKS10,000-100,000 2-3 MONTHSImmature Granulocyte # (Auto)0.02 10 3/uL0.00-0.03[facility] HospitalUrine Bacteria TRACE #/HPFAbnormalNONE SEENMercy Health – The Jewish HospitalUrine Culture ReflexedKETTERING HEALTH MIAMISBURG-[facility] HospitalUrine Microscopic ReviewSt. Rita's HospitalUrine Occult BloodMODERATEAbnormalNEGATIVE [facility] HospitalUrine Other CastsNONE SEEN #/LPFNONE SEEN [facility] HospitalUrine Other CrystalsNone Seen #/HPFNone Seen [facility] HospitalUrine RBC0-2 #/HPF0-2FMemorial Health System Selby General HospitalUrine Squamous Epithelial CellsRARE #/LPFNONE/RAREMercy Health – The Jewish HospitalUrine WBC0-2 #/HPFAbnormalNONE SEENMercy Health – The Jewish HospitalPlatelet mean volume Auto (Bld) [Entitic vol]on 33-55-4233Izjjaems mean volume (Bld) [Entitic vol]Platelet mean volume [Entitic volume] in Blood by Automated countLow9.5-13.5FMemorial Health System Selby General HospitalPlatelet mean volume (Bld) [Entitic vol]8.9 fLLow9.5-13.5FMemorial Health System Selby General HospitalPlatelets Auto (Bld) [#/Vol]on 29-08-7072Ddjpxtxed (Bld) [#/Vol]Platelets [#/volume] in Blood by Automated eascw296-813SnmdmlypiMercy Health – The Jewish HospitalPlatelets (Bld) [#/Vol]320 10 3/oW402-406YppwnuuqgMercy Health – The Jewish HospitalRBC Auto (Bld) [#/Vol] on 78-97-2309NSO (Bld) [#/Vol]Erythrocytes [#/volume] in Blood by Automated count4.20-5.40[facility] (Bld) [#/Vol]4.60 10 6/uL 4.20-5.40[facility] Centererum or plasma albumin/globulin mass ratioon 50-85-5332Tvodyhl/Globulin [Mass ratio]Serum or plasma albumin/globulin mass ratioMercy Health – The Jewish HospitalAlbumin/Globulin [Mass ratio]1.3 {ratio}[facility] Centererum or plasma anion gap determination on 66-38-5175Djiyp gap [Moles/Vol]Serum or plasma anion gap determination [facility] HospitalAnion gap [Moles/Vol]14.6 mmol/LFMemorial Health System Selby General HospitalUrine Cultureon 56-38-4306Bnytioqa identified Cx Nom (U) 20,000 colonies/ml mixed bacterial skin contaminants 2 Days PERFORMED BY: [place] [address] PATHOLOGIST SPRAY DYER FILIBERTO APPIAH M.D.NormalThe Formerly [facility] Physician GroupComment on above: Performed By: #### CUU #### [place] [address] USAUrine cultureOrdered By: Luna La on 96-65-4826Zvjvohau identified Cx Nom (U)Urine cultureMercy Health – The Jewish HospitalBacteria identified Cx Nom (U)2 DaysMercy Health – The Jewish HospitalYeast detection in urine sediment by light microscopyon 40-25-0239Fotjw LM Ql (Urine sed)Yeast detection in urine sediment by light microscopyAbnormalNONE The Christ HospitalYeast LM Ql (Urine sed)SEENAbnormalNONE [facility] HospitalChoriogonadotropin.beta subunit [Units/volume] in Serum or PlasmaOrdered By: Riddhi Villar on 93-78-1338HGR.beta subunit Qn Choriogonadotropin.beta subunit [Units/volume] in Serum or PlasmaMercy Health – The Jewish HospitalComment on above:Approximate Approximate hCG Gestational Age Range (mIU/ml) (weeks)0.2-1 5-50 1-2 50-500 2-3 100-5,000 3-4 500-10,000 4-5 1,000-50,000 5-6 10,000-100,000 6-8 15,000-200,000 8-12 10,000-100,000HCG.beta subunit Qn169.46 m[IU]/mLMercy Health – The Jewish HospitalComment on above: Approximate Approximate hCG Gestational Age Range (mIU/ml) (weeks)0.2-1 5-50 1-2 50-500 2-3 100-5,000 3-4 500-10,000 4-5 1,000-50,000 5-6 10,000-100,000 6-8 15,000-200,000 8-12 10,000-100,000HCG,Quantitativeon 94-90-5344NDG,Quantitative 169.46 m[iU]/mLNformerly vidant duplin hospitalThe [facility]ly [facility] Physician GroupComment on above:Result Comment: Approximate Approximate hCG Gestational Age Range (mIU/ml) (weeks) 0.2-1 5-50 1-2 50-500 2-3 100-5,000 3-4 500-10,000 4-5 1,000-50,000 5-6 10,000-100,000 6-8 15,000-200,000 8-12 10,000-100,000 PERFORMED BY: [facility] [address] [place] [address] PATHOLOGIST SPRAY DYER FILIBERTO APPIAH M.D.Performed By: #### HCGQNT ####[facility] [address] [place] [address] USAhCG, quantitative, pregnancyon 08-40-1519NAR,HZKAJDGUMSPQ097.46 m[iU]/mLNOMS HealthcareComment on above: Approximate Approximate hCG Gestational Age Range (mIU/ml) (weeks) 0.2-1 5-50 1-2 50-500 2-3 100-5,000 3-4 500-10,000 4-5 1,000-50,000 5-6 10,000-100,000 6-8 15,000-200,000 8-12 10,000-100,000 NOMS HealthcareChoriogonadotropin.beta subunit [Units/volume] in Serum or Plasma Ordered By: Riddhi Villar on 28-44-0766ORW.beta subunit Qn Choriogonadotropin.beta subunit [Units/volume] in Serum or PlasmaMercy Health – The Jewish HospitalComment on above:Approximate Approximate hCG Gestational Age Range (mIU/ml) (weeks)0.2-1 5-50 1-2 50-500 2-3 100-5,000 3-4 500-10,000 4-5 1,000-50,000 5-6 10,000-100,000 6-8 15,000-200,000 8-12 10,000-100,000HCG.beta subunit Qn28.39 m[IU]/mLMercy Health – The Jewish HospitalComment on above: Approximate Approximate hCG Gestational Age Range (mIU/ml) (weeks)0.2-1 5-50 1-2 50-500 2-3 100-5,000 3-4 500-10,000 4-5 1,000-50,000 5-6 10,000-100,000 6-8 15,000-200,000 8-12 10,000-100,000HCG,Quantitativeon 43-20-1344JFO,Quantitative 28.39 m[iU]/mLNormalThe [facility] Physician GroupComment on above:Result Comment: Approximate Approximate hCG Gestational Age Range (mIU/ml) (weeks) 0.2-1 5-50 1-2 50-500 2-3 100-5,000 3-4 500-10,000 4-5 1,000-50,000 5-6 10,000-100,000 6-8 15,000-200,000 8-12 10,000-100,000 PERFORMED BY: [facility] [address] [place] [address] PATHOLOGIST SPRAY DYER FILIBERTO APPIAH M.D.Performed By: #### HCGQNT ####[facility] [address] [place] [address] USAhCG, quantitative, pregnancyon 67-52-9083PJZ,DGBQXZBDLQCM61.39 m[iU]/mLNMCALESTER REGIONAL HEALTH CENTER – MCALESTER HealthcareComment on above: Approximate Approximate hCG Gestational Age Range (mIU/ml) (weeks) 0.2-1 5-50 1-2 50-500 2-3 100-5,000 3-4 500-10,000 4-5 1,000-50,000 5-6 10,000-100,000 6-8 15,000-200,000 8-12 10,000-100,000 N[facility]S [facility] US BREAST COMPLETE LEFTon 07-18-5514BX US BREAST COMPLETE LEFT This is a [...] BI-RADS 2 ELECTRONICALLY SIGNED BY: Timo Villagran M.D.NormalNot AvailableMR head/brain wo/w conon 30-48-6302KX head/brain wo/w [facility] [place] [address] MRI Report Signed Patient: Jessica Valdez MR#: [id number] : 1990 Acct:[id number] Age/Sex: 34 / F ADM Date: 06/06/24 Loc: MR Room: Type: [facility] Attending Dr: Bakari Escalera DO Copies [...] Layton Samuels M.D.06/06/2024 2:34 PM Dictation Location: [place] [address] Transcribed By: [facility] 06/06/24 1434 Dictated By: Layton Samuels MD 06/06/24 1427 Signed By: 06/06/[address] [place] [address] Physician GroupSan Carlos Apache Tribe Healthcare Corporationetic resonance imaging reportOrdered By: Layton Samuels on 72-06-9203Iggkt reportKETTERING HEALTH Main [place] [address] [address] MRI Report Signed Patient: Jessica Valdez MR#: [id number] : 1990 Acct:[id number] Age/Sex: 34 / F ADM Date: 5 Loc: MR Room: Type: [facility] Attending Dr: Bakari Escalera DO Copies to: Bakari sEcalera DO~ Ordering Provider: Bakari Escalera DO Date [...] cisterns are patent. No abnormal GRE signal. Noabnormal postcontrast enhancement. MR/MR head/brain wo/w con IMPRESSION: Stable examination. Stable nonspecific foci of T2 prolongation within the whitematter, no evidence of progression. Stable 3 mm cerebellar tonsillar ectopia Impression dictated by: Layton Samuels M.D.06/06/2024 2:34 PM Dictation Location: [place] [address] Transcribed By: [facility] 06/06/24 1434 Dictated By: Layton Samuels MD 06/06/24 1427 Signed By: 06/06/24 1434 [facility] Work Phone: STRESS TEST ONLYon 47-57-3770CTSKPN TEST ONLY[address], [place] [address] Exercise Stress Test Patient Name: JESSICA VALDEZ Ordering Provider: [id number] ARIEL CALDERON Study Date: 05/10/2024 Reading Physician: [id number] Flanagan MD MRN/PID: [id number] Supervising Physician: [id number] Ángel Flanagan MD Fellow: Date of /Age: 1 1990 / 34 years Fellow: Gender: F Nurse: Jackie Jacobs RN Admission Status: Winder Hand: SHERICE Height: 175.26 cm Technologist: Weight: 99.79 kg Additional Staff: BSA: 2.15 m2 BMI: 32.49 kg/m2 Patient Location: Study Type: STRESS TEST ONLY Diagnosis/ICD: Chest pain, unspecified-R07.9 Indication: Chest Pain CPT Codes: Stress Test Interpretation-50545; Stress Test Supervision-[id number] Falls Risk: Low: Patient has low risk [...] and fatigue during the stress exam. The symptom s resolved with rest. The blood pressure response [...] and 94% of maximum predicted heart rate. [id number] Idalmis Flanagan MD Electronically signed on 05/10/2024 at 4:52:25 PM Final [facility] HospitalNo Panel Information on 37-88-5510CXSBKDXJH ANegativeNegativeNOMS HealthcareINFLUENZA BNegative NegativeNOMS HealthcareInterpretation and review of laboratory resultsNormalNOOR HealthcareNOOR HealthcareBasophils Auto (Bld) [#/Vol]on 64-70-4649Gvszsyixu (Bld) [#/Vol]Automated basophil count0.0-0.1FMemorial Health System Selby General Hospital Basophils/100 WBC Auto (Bld)on 32-62-2088Snkuswndh/100 WBC (Bld)Automated basophil %0.2-2.0[facility] HospitalEosinophils/100 WBC Auto (Bld) on 35-31-9408Ssvltuwcjgt/100 WBC (Bld)Automated eosinophil %Low0.9-7.0[facility] HospitalErythrocyte distribution width Auto (RBC) [Ratio]on 59-26-5586Cosqkrnrolg distribution width (RBC) [Ratio]Erythrocyte distribution width [Ratio] by Automated count11.0-15.0[facility] Estimated glomerular filtration rate (GFR) non- Americanon 04-07-2024 GFR/1.73 sq M.predicted among non-blacks MDRD (S/P/Bld) [Vol rate/Area]Estimated glomerular filtration rate (GFR) non->=60 mL/min/1.73m 2 [facility] HospitalHematocrit Auto (Bld) [Volume fraction]on 97-32-6437Okxubobsye (Bld) [Volume fraction]Hematocrit [Volume Fraction] of Blood by Automated count36.0-48.0[facility] HospitalHemoglobin [Mass/volume] in Bloodon 69-75-0485Rrmplmaeal (Bld) [Mass/Vol]Hemoglobin [Mass/volume] in Blood12.0-16.0[facility] HospitalLaboratory - Chemistry and Chemistry - challengeon 13-27-6571Pjgyhvw [Mass/Vol]9.6 mg/dL 8.5-10.1FMemorial Health System Selby General HospitalChloride [Moles/Vol]104 mmol/L98-107 [facility] HospitalCO2 [Moles/Vol]24.8 mmol/L21.0-32.0[facility] HospitalCreatinine [Mass/Vol]0.87 mg/dL0.55-1.02[facility] HospitalGFR/1.73 sq M.predicted MDRD (S/P/Bld) [Vol rate/Area] mL/min/{1.73_m2}>=60 mL/min/1.73m 2FMemorial Health System Selby General HospitalGlucose [Mass/Vol]99 mg/lD66-414TajegnuvwMercy Health – The Jewish HospitalPotassium [Moles/Vol] 3.9 mmol/L3.5-5.1FWexner Medical Centerodium [Moles/Vol]140 mmol/L 136-145Mer[facility] Jewish HospitalUrea nitrogen [Mass/Vol]10.0 mg/dL 7.0-18.0[facility] HospitalUrea nitrogen/Creatinine [Mass ratio] 11.5 mg/mgFirelands Regional Medical CenterLaboratory - Hematology and Cell countson 43-28-1862Ksuizrzj granulocytes/100 WBC (Bld)0.2 %0.0-0.5FMemorial Health System Selby General HospitalLeukocytes [#/volume] corrected for nucleated erythrocytes in Blood by Automated counon 50-76-2244FLV corrected for nucl RBC Auto (Bld) [#/Vol]Leukocytes [#/volume] corrected for nucleated erythrocytes in Blood by Automated coun4.0-11.0[facility] HospitalLymphocytes Auto (Bld) [#/Vol]on 58-09-0290Egsugpltkmm (Bld) [#/Vol]Lymphocytes [#/volume] in Blood by Automated count1.2-3.8[facility] HospitalLymphocytes/100 WBC Auto (Bld)on 18-50-2296Xqozwnylkic/100 WBC (Bld)Lymphocytes/100 leukocytes in Blood by Automated cybkzVbb65.5-60.0[facility] HospitalH Auto (RBC) [Entitic mass]on 71-34-0719NBC (RBC) [Entitic mass]MCH [Entitic mass] by Automated count26.7-34.0[facility] HospitalMCHC Auto (RBC) [Mass/Vol]on 19-68-7439CJTG (RBC) [Mass/Vol]MCHC [Mass/volume] by Automated count29.9-35.2FMemorial Health System Selby General HospitalMCV Auto (RBC) [Entitic vol]on 50-15-0460PQM (RBC) [Entitic vol]MCV [Entitic volume] by Automated count 81.0-99.0[facility] HospitalMonocytes Auto (Bld) [#/Vol]on 81-86-5609Vngacpnsa (Bld) [#/Vol]Automated blood monocyte count0.3-0.8[facility] HospitalMonocytes/100 WBC Auto (Bld)on 44-06-3553Yoxqzszrp/100 WBC (Bld)Automated monocyte %1.7-12.0[facility] Neutrophils Auto (Bld) [#/Vol]on 54-10-4607Emdihkesmyd (Bld) [#/Vol]Neutrophils [#/volume] in Blood by Automated countHigh1.4-6.5FMemorial Health System Selby General HospitalNeutrophils/100 WBC Auto (Bld)on 46-14-6300Nlqljnsqcrt/100 WBC (Bld) Automated neutrophil %43.0-75.0[facility] HospitalNo Panel Informationon 75-97-6516Ccldncmenkg # (Auto)0.0 10 3/uL0.0-0.7FMemorial Health System Selby General HospitalImmature Granulocyte # (Auto)0.02 10 3/uL0.00-0.03[facility] HospitalTroponin I High Sensitivity<4.0 pg/mLLow4.0-51.3FMemorial Health System Selby General HospitalComment on above:CUT-OFF POINTS HAVE BEEN ESTABLISHED BASED ON THE FOURTHUNIVERSAL DEFINITION OF MYOCARDIAL INFARCTION. THE UPPERREFERENCE LIMIT (URL) OF TROPONIN, DEFINED THE 99THPERCENTILE OF cTnI DISTRIBUTION IN A REFERENCE POPULATION,HAS BEEN CONFIRMED THE DECISION THRESHOLD FOR MIDIAGNOSIS.99TH PERCENTILE = 51.4 PG/MLNOTE: HIGH-SENSITIVITY TROPONIN ASSAY IS NOT INTENDED TO BEUSED IN ISOLATION BUT SHOULD BE INTERPRETED IN CONJUNCTIONWITH OTHER DIAGNOSTIC AND CLINICAL INFORMATION.Platelet mean volume Auto (Bld) [Entitic vol]on 73-39-8215Qjrrkjqt mean volume (Bld) [Entitic vol]Platelet mean volume [Entitic volume] in Blood by Automated countLow9.5-13.5 [facility] Jewish HospitalPlatelets Auto (Bld) [#/Vol]on 04-07-2024 Platelets (Bld) [#/Vol]Platelets [#/volume] in Blood by Automated nubow315-830 [facility] HospitalRBC Auto (Bld) [#/Vol]on 09-11-4419IUI (Bld) [#/Vol]Erythrocytes [#/volume] in Blood by Automated count4.20-5.40[facility] Centererum or plasma anion gap determinationon 59-62-7045Xoyba gap [Moles/Vol]Serum or plasma anion gap determinationMercy Health – The Jewish HospitalCOVID Cepheidon 59-89-8106YRER-CoV-2 (COVID-19) RNA GABRIEL+probe Ql (Unsp spec)COVID CepheidMercy Health – The Jewish HospitalLaboratory - Microbiology and Antimicrobial susceptibilityon 55-52-7533QUIY-CoV-2 (COVID-19) RNA GABRIEL+probe Ql (Unsp spec)NegativeMercy Health – The Jewish HospitalNo Panel Informationon 83-55-8378TSU Influenza A (PCR)NegativeMercy Health – The Jewish HospitalPO Influenza B (PCR)NegativeMercy Health – The Jewish HospitalNo Panel InformationOrdered By: Jeni Whittington on 49-74-5696Vmvvr Strep (POC)[facility] HospitalQuick Strep (POC)[facility] Laboratory - Microbiology and Antimicrobial susceptibilityon 02-04-2024S. agalactiae Org specific cx Ql (Vag fld)0NOMS HealthcareS. agalactiae Org specific cx Ql (Vag fld)Not detectedNOMS AicthzocmzWLOM-RfP-8 (COVID-19) RNA GABRIEL+probe Ql (Unsp spec)NegativeNOMS TuqkgebwlgWOHG-ZmP-6 (COVID-19) RNA GABRIEL+probe Ql (Unsp spec)Not detectedNOMS HealthcareNo Panel Informationon 56-41-4939LFCRXBFRMZUCR BAUMANNII (RESPIRATORY)0NOMS HealthcareACINETOBACTER BAUMANNII (RESPIRATORY)Not detectedNOMS HealthcareADENOVIRUS HADV-B (RESPIRATORY)0NOMS HealthcareADENOVIRUS HADV-B (RESPIRATORY)Not detectedNOMS HealthcareBORDETELLA PERTUSSIS, PARAPERTUSSIS, BRONCHISEPTICA (RESPIRATORY)0NOMS HealthcareBORDETELLA PERTUSSIS, PARAPERTUSSIS, BRONCHISEPTICA (RESPIRATORY)Not detectedNOMS HealthcareCHLAMYDIA PNEUMONIAE (RESPIRATORY)0[facility] CHLAMYDIA PNEUMONIAE (RESPIRATORY)Not detectedNOMS HealthcareENTEROBACTER CLOACAE COMPLEX, KLEBSIELLA (ENTEROBACTER) AEROGENES (ZEUOISKO6SLQC Healthcare ENTEROBACTER CLOACAE COMPLEX, KLEBSIELLA (ENTEROBACTER) AEROGENES (RESPIRATNot detectedNOMS HealthcareENTEROVIRUS D68 (RESPIRATORY)0NOMS HealthcareENTEROVIRUS D68 (RESPIRATORY)Not detectedNOMS HealthcareESCHERICHIA COLI (RESPIRATORY)0NOMS HealthcareESCHERICHIA COLI (RESPIRATORY)Not detectedNOMS HealthcareHAEMOPHILUS INFLUENZAE (RESPIRATORY)0NOMS HealthcareHAEMOPHILUS INFLUENZAE (RESPIRATORY)Not detectedNOMS HealthcareHUMAN METAPNEUMOVIRUS (RESPIRATORY)0NOMS HealthcareHUMAN METAPNEUMOVIRUS (RESPIRATORY)Not detectedNOMS HealthcareINFLUENZA VIRUS, A, B (RESPIRATORY)0NOMS HealthcareINFLUENZA VIRUS, A, B (RESPIRATORY)Not detectedNOMS HealthcareInterpretation and review of laboratory resultsAbnormalNOMS HealthcareKLEBSIELLA PNEUMONIAE, OXYTOCA (RESPIRATORY)0NOMS HealthcareKLEBSIELLA PNEUMONIAE, OXYTOCA (RESPIRATORY)Not detectedNOMS HealthcareLEGIONELLA PNEUMOPHILA (RESPIRATORY)0NOMS HealthcareLEGIONELLA PNEUMOPHILA (RESPIRATORY)Not detectedNOMS HealthcareMORAXELLA CATARRHALIS (RESPIRATORY)26.533AbnormalNOMS HealthcareMORAXELLA CATARRHALIS (RESPIRATORY)DetectedAbnormalNOMS Healthcare MYCOPLASMA PNEUMONIAE (RESPIRATORY)0NOMS HealthcareMYCOPLASMA PNEUMONIAE (RESPIRATORY)Not detectedNOMS HealthcareOTHER CORONAVIRUSES (229E, NL63, HKU1, OC43) (RESPIRATORY)0NOMS HealthcareOTHER CORONAVIRUSES (229E, NL63, HKU1, OC43) (RESPIRATORY)Not detectedNOMS HealthcarePARAINFLUENZA VIRUS (TYPES 1, 2, 3 ,4) (RESPIRATORY)0NOMS HealthcarePARAINFLUENZA VIRUS (TYPES 1, 2, 3 ,4) (RESPIRATORY)Not detectedNOMS HealthcarePROTEUS MIRABILIS, VULGARIS (RESPIRATORY)0NOMS HealthcarePROTEUS MIRABILIS, VULGARIS (RESPIRATORY)Not detectedNOMS HealthcarePSEUDOMONAS AERUGINOSA (RESPIRATORY)0[facility] PSEUDOMONAS AERUGINOSA (RESPIRATORY)Not detectedNOMS HealthcareRESPIRATORY SYNCYTIAL VIRUS (RESPIRATORY)0NOMS HealthcareRESPIRATORY SYNCYTIAL VIRUS (RESPIRATORY)Not detectedNOMS HealthcareRHINOVIRUS/ENTEROVIRUS (RESPIRATORY)0 NOMS HealthcareRHINOVIRUS/ENTEROVIRUS (RESPIRATORY)Not detectedNOMS Healthcare SERRATIA MARCESCENS (RESPIRATORY)0NOMS HealthcareSERRATIA MARCESCENS (RESPIRATORY)Not detectedNOMS HealthcareSTAPHYLOCOCCUS AUREUS (RESPIRATORY)0NOMS HealthcareSTAPHYLOCOCCUS AUREUS (RESPIRATORY)Not detectedNOMS Healthcare STREPTOCOCCUS PNEUMONIAE (RESPIRATORY)0NOMS HealthcareSTREPTOCOCCUS PNEUMONIAE (RESPIRATORY)Not detectedNOMS HealthcareSTREPTOCOCCUS PYOGENES (GROUP A STREP) (RESPIRATORY)0NOMS HealthcareSTREPTOCOCCUS PYOGENES (GROUP A STREP) (RESPIRATORY)Not detectedNOMS HealthcareNOMS HealthcareLaboratory - Microbiology and Antimicrobial susceptibilityon 45-92-7597MZNV-CoV-2 (COVID-19) RNA GABRIEL+probe Ql (Unsp spec)NegativeNorth [facility] Panel Informationon 02-02-2024 FLU ANegativeNOMS HealthcareFLU BNegativeNOOR HealthcareInterpretation and review of laboratory resultsNormalUniversity Health Lakewood Medical CenterNOOR HealthcareAlanine aminotransferase [Enzymatic activity/volume] in Serum or PlasmaOrdered By: Bakari Escalera on 31-79-1754MTL [Catalytic activity/Vol]14 U/L7-52[facility] HospitalAlbumin [Mass/volume] in Serum or Plasma by Bromocresol green (BCG) dye binding methoOrdered By: Bakari Escalera on 46-97-8775Hunxgrh BCG dye [Mass/Vol]4.3 g/dL3.5-5.7FMemorial Health System Selby General HospitalAlkaline phosphatase [Enzymatic activity/volume] in Serum or PlasmaOrdered By: Bakari Escalera on 84-91-3325URM [Catalytic activity/Vol]55 U/Q25-925GeycjqnuzMercy Health – The Jewish HospitalAspartate aminotransferase [Enzymatic activity/volume] in Serum or Plasma Ordered By: Bakari Escalera on 05-84-2349LHB [Catalytic activity/Vol]15 U/L13-39 [facility] HospitalBasophils Auto (Bld) [#/Vol]Ordered By: Bakari Escalera on 59-56-4812Nhjpknpte (Bld) [#/Vol]0.0 10*3/uL0.0-0.2FMemorial Health System Selby General HospitalBasophils/100 WBC Auto (Bld)Ordered By: Bakari Escalera on 10-28-2023 Basophils/100 WBC (Bld)0.7 %.[facility] HospitalBilirubin.total [Mass/volume] in Serum or PlasmaOrdered By: Bakari Escalera on 14-35-2197Wnrofjrnn [Mass/Vol]0.4 mg/dL0.3-1.0[facility] HospitalCalcium [Mass/volume] in Serum or PlasmaOrdered By: Bakari Escalera on 45-80-1793Jowrgcy [Mass/Vol]9.2 mg/dL8.6-10.3FMemorial Health System Selby General HospitalCarbon dioxide, total [Moles/volume] in Serum or PlasmaOrdered By: Bakari Escalera on 32-20-3505YW0 [Moles/Vol]29.9 mmol/L21.0-31.0[facility] HospitalChloride [Moles/volume] in Serum or PlasmaOrdered By: Bakari Escalera on 37-52-2421Qbpeepuq [Moles/Vol]105 mmol/Z47-928UstxvjvmkMercy Health – The Jewish HospitalCreatinine [Mass/volume] in Serum or PlasmaOrdered By: Bakari Escalera on 08-45-8113Rnltsbwobt [Mass/Vol]0.82 mg/dL0.60-1.20[facility] HospitalEosinophils Auto (Bld) [#/Vol]Ordered By: Bakari Escalera on 12-55-9258Hurhgigpfyv (Bld) [#/Vol]0.1 10*3/uL0.0-0.45[facility] HospitalEosinophils/100 WBC Auto (Bld) Ordered By: Bakari Escalera on 29-97-5573Bybryjmpjqx/100 WBC (Bld)1.7 %.[facility] HospitalErythrocyte distribution width Auto (RBC) [Ratio]Ordered By: Bakari Escalera on 76-90-5431Kwwwonhanpe distribution width (RBC) [Ratio]12.7 % 11.9-15.3FMemorial Health System Selby General HospitalFerritin [Mass/volume] in Serum or PlasmaOrdered By: Bakari Escalera on 35-28-3612Lssqvosd [Mass/Vol]22.5 ng/mL 11.0-306.8[facility] HospitalFolate [Mass/volume] in Serum or PlasmaOrdered By: Bakari Escalera on 39-43-0247Zziauz [Mass/Vol]23.3 ng/mL>5.9 [facility] HospitalComment on above:Folate reference range: >5.9 ng/mlThe WHO technical consultation on folate and vitamin c97uqfhtaeghxof has determined that folate concentrations lessthan 4 ng/ml are considered deficient. Globulin Calc (S) [Mass/Vol]Ordered By: Bakari Escalera on 79-74-5293Fcymxndw (S) [Mass/Vol]2.3 g/dLMercy Health – The Jewish HospitalGlucose [Mass/volume] in Serum or PlasmaOrdered By: Bakari Escalera on 63-44-5650Pcoqbjq [Mass/Vol]97 mg/dL 70-100[facility] HospitalComment on above:ADA recommended reference rangeRandom Glucose Reference Range is dependent on time and content of last meal. Glucose of more than 200 mg/dL in a nonstressed, ambulatory subject supports the diagnosisof Diabetes Mellitus.Hematocrit Auto (Bld) [Volume fraction]Ordered By: Bakari Escalera on 21-02-0650Glyatkzafw (Bld) [Volume fraction]40.5 %34.0-46.4FMemorial Health System Selby General HospitalHemoglobin [Mass/volume] in BloodOrdered By: Bakari Escalera on 61-76-6295Kdmhcfuchw (Bld) [Mass/Vol]13.5 g/dL11.8-15.4FMemorial Health System Selby General HospitalIron [Mass/volume] in Serum or PlasmaOrdered By: Bakari Escalera on 59-91-2655Sgkf [Mass/Vol]57 ug/dL 50-212[facility] HospitalIron binding capacity [Mass/volume] in Serum or PlasmaOrdered By: Bakari Escalera on 36-81-4326Yyrw binding capacity [Mass/Vol]319 ug/aT325-631HsxstcpcuMercy Health – The Jewish HospitalIron saturation [Mass Fraction] in Serum or PlasmaOrdered By: Bakari Escalera on 24-15-2364Hxjw saturation [Mass fraction]17.9 %Vdt60-80GptbbigitMercy Health – The Jewish Hospital Leukocytes [#/volume] corrected for nucleated erythrocytes in Blood by Automated counOrdered By: Bakari Escalera on 63-63-3602BPB corrected for nucl RBC Auto (Bld) [#/Vol]6.8 10*3/uL3.8-11.6FMemorial Health System Selby General HospitalLymphocytes Auto (Bld) [#/Vol]Ordered By: Bakari Escalera on 62-58-6046Diwrokamcaa (Bld) [#/Vol]2.7 10*3/uL1.00-4.8[facility] HospitalLymphocytes/100 WBC Auto (Bld) Ordered By: Bakari Escalera on 97-95-7169Wlfuivojsog/100 WBC (Bld)39.7 %.[facility] HospitalMC Auto (RBC) [Entitic mass]Ordered By: Bakari Escalera on 28-41-5086LTS (RBC) [Entitic mass]29.8 pg24.7-34.3FMemorial Health System Selby General HospitalMCHC Auto (RBC) [Mass/Vol]Ordered By: Bakari Escalera on 37-12-9295ESZU (RBC) [Mass/Vol]33.4 g/dL32.0-35.0[facility] HospitalMCV Auto (RBC) [Entitic vol]Ordered By: Bakari Escalera on 99-34-9241FZT (RBC) [Entitic vol]89.1 nB21-198YjkajghifMercy Health – The Jewish HospitalMonocytes Auto (Bld) [#/Vol]Ordered By: Bakari Escalera on 69-78-5990Tudwqmsvy (Bld) [#/Vol]0.5 10*3/uL0.0-0.8[facility] HospitalMonocytes/100 WBC Auto (Bld)Ordered By: Bakari Escalera on 29-38-6207Yqmeggpxi/100 WBC (Bld)7.9 %.[facility] Neutrophils Auto (Bld) [#/Vol]Ordered By: Bakari Escalera on 56-80-7177Yizgsmgvlcy (Bld) [#/Vol]3.4 10*3/uL1.8-7.7FMemorial Health System Selby General HospitalNeutrophils/100 WBC Auto (Bld)Ordered By: Bakari Escalera on 70-84-3836Xtuvaagxsot/100 WBC (Bld) 50.0 %.[facility] HospitalNo Panel InformationOrdered By: Bakari Escalera on 48-50-4272Owihbvxah GFR (CKD-EPI)> 60.0 mL/MinMercy Health – The Jewish HospitalPharmacy Creatinine Clearance (ChemN/AFMemorial Health System Selby General HospitalNucleated erythrocytes [Presence] in Blood by Automated countOrdered By: Bakari Escalera on 58-16-6376Brxjnrczd RBC Auto Ql (Bld)0.0 /100{WBC}0-0.5FMemorial Health System Selby General HospitalPlatelet mean volume Auto (Bld) [Entitic vol]Ordered By: Bakari Escalera on 77-03-4483Jyggxhrv mean volume (Bld) [Entitic vol]8.1 fL6.3-10.7 [facility] HospitalPlatelets Auto (Bld) [#/Vol]Ordered By: Bakari Escalera on 26-84-0581Lwaqwolrr (Bld) [#/Vol]292 10*3/yQ068-227HapqnlcytMercy Health – The Jewish HospitalPotassium [Moles/volume] in Serum or PlasmaOrdered By: Bakari Escalera on 61-50-1437Zuwwpxyzl [Moles/Vol]4.5 mmol/L3.5-5.1FMemorial Health System Selby General HospitalProtein [Mass/volume] in Serum or PlasmaOrdered By: Bakari Escalera on 16-73-8850Zwluclx [Mass/Vol]6.6 g/dL6.4-8.9[facility] RBC Auto (Bld) [#/Vol]Ordered By: Bakari Escalera on 77-17-0217VFB (Bld) [#/Vol] 4.54 10*6/uL3.60-5.00[facility] Centererum or plasma albumin/globulin mass ratioOrdered By: Bakari Escalera on 10-28-2023 Albumin/Globulin [Mass ratio]1.9 {ratio}[facility] Centererum or plasma anion gap determinationOrdered By: Bakari Escalera on 89-90-0298Kgsqo gap [Moles/Vol]6.6 mmol/L6.0-15.0[facility] Centerodium [Moles/volume] in Serum or PlasmaOrdered By: Bakari Escalera on 90-24-6689Iezasp [Moles/Vol]137 mmol/W517-749WuzdeitekMercy Health – The Jewish HospitalThyrotropin [Units/volume] in Serum or PlasmaOrdered By: Bakari Escalera on 94-19-7439LLU Qn 1.64 m[IU]/L0.45-5.33[facility] HospitalTransferrin [Mass/volume] in Serum or PlasmaOrdered By: Bakari Escalera on 02-47-6947Krriitcxwrz [Mass/Vol] 228 mg/kV605-563HqrxsjdleMercy Health – The Jewish HospitalUrea nitrogen [Mass/volume] in Serum or PlasmaOrdered By: Bakari Escalera on 79-65-9824Jqhc nitrogen [Mass/Vol]15 mg/dL7-25[facility] HospitalVitamin B12 ser/plasOrdered By: Bakari Escalera on 22-47-2923Fvgmrvaom (Vitamin B12) [Mass/Vol]465 pg/fK156-317XhxdhdzkvMercy Health – The Jewish HospitalVitamin D+Metabolites [Mass/volume] in Serum or Plasma Ordered By: Bakari Escalera on 46-67-2795Hawzmiv D+Metabolites [Mass/Vol]42.8 ng/mL 30-100[facility] HospitalComment on above:VITAMIN D STATUS 25(OH)VITAMIN D RANGE (ng/mL) Deficient <20 Insufficient 20 to <70Zekkcqzxgu26 to 100Reference: Neida MF,Marina LOYA, Tasha JOVEL, et al. Evaluation,treatment, and prevention of vitamin D deficiency; an Endocrine Society clinical practice guideline. JCEM. 2010; 96(7):1911-30.WBC Auto (Bld) [#/Vol]Ordered By: Bakari Escalera on 40-78-9259UKQ (Bld) [#/Vol]6.8 10*3/uL 3.8-11.6FMemorial Health System Selby General HospitalUrinalysis macro (dipstick) panel (U)on 56-79-7478Ioyhkqtkk, UANegativeNegative - 4(70) +++ mg/dLNOMS HealthcareBlood, UANegativeNegative - 50 Arturo/mcLNOMS HealthcareClarity, UAClearNOMS Healthcare Color, UALight YellowNOMS HealthcareGlucose, UANegativeNegative - 2000(110) ++++ mg/dLNOMS HealthcareKetones, UANegativeNegative - 160(16) ++++ mg/dLNOMS HealthcareLeukocytes, UANegativeNegative - 500+++ Jaylon/mcLNOMS HealthcareNitrite, UANegativeNegative - PositiveNOMS HealthcarepH, UA6.05 - 9N[facility] Protein, UANegativeNegative - 2000(20) ++++ mg/dLNOMS HealthcareSpec Grav, UA 1.0051 - 1.03NOMS HealthcareUrobilinogen, UA0.20.2 - 12 mg/dLNOMS HealthcareNOMS HealthcarePsychiatry Adulton 81-74-1599Gtyxpjxjva AdultOrders Anxiety and depression Renew: buPROPion HCl ER [...] on 06/19,. Denies psychologically traumatic, but painful [facility] . INTERIM: Denies new medications. Taking Sertraline [...] site) was utilized to providethis telehealth service. Verbal consent was requested and [...] Regular rate, rhythm, volume (more content not included)...NormalUH TouchworksPsychiatry AdultNo report was sentNormalU Touchroosevelt general hospitalAlanine aminotransferase [Enzymatic activity/volume] in Serum or PlasmaOrdered By: Bakari Escalera on 98-30-7481QDL [Catalytic activity/Vol]10 U/L7-52[facility] HospitalAlbumin [Mass/volume] in Serum or Plasma by Bromocresol green (BCG) dye binding methoOrdered By: Bakari Escalera on 44-74-1646Rsflmrc BCG dye [Mass/Vol]4.4 g/dL3.5-5.7FMemorial Health System Selby General HospitalAlkaline phosphatase [Enzymatic activity/volume] in Serum or PlasmaOrdered By: Bakari Escalera on 19-18-8181HBR [Catalytic activity/Vol]65 U/Q79-324AtjbulbrtMercy Health – The Jewish HospitalAspartate aminotransferase [Enzymatic activity/volume] in Serum or Plasma Ordered By: Bakari Escalera on 95-04-5219PHP [Catalytic activity/Vol]13 U/L13-39 [facility] HospitalAutomated erythrocytes count in urine sediment (number/area)Ordered By: Bakari Escalera on 55-44-9651LCX Auto (Urine sed) [#/Area] 1-2 [HPF]0-4FMemorial Health System Selby General HospitalAutomated leukocytes count in urine sediment (number/area)Ordered By: Bakari Escalera on 58-34-4722NOJ Auto (Urine sed) [#/Area]1-2 [HPF]0-4FMemorial Health System Selby General HospitalBasophils Auto (Bld) [#/Vol]Ordered By: Bakari Escalera on 66-73-2060Lvasiwdbn (Bld) [#/Vol]0.0 10*3/uL 0.0-0.2FMemorial Health System Selby General HospitalBasophils/100 WBC Auto (Bld)Ordered By: Bakari Escalera on 46-87-2009Urqsadofq/100 WBC (Bld)0.6 %.[facility] HospitalBilirubin Test strip Ql (U)Ordered By: Bakari Escalera on 10-05-2022 Bilirubin Ql (U)NegativeNegativeMercy Health – The Jewish HospitalBilirubin.total [Mass/volume] in Serum or PlasmaOrdered By: Bakari Escalera on 46-19-3228Ruozvrdyv [Mass/Vol]0.4 mg/dL0.3-1.0[facility] HospitalCalcium [Mass/volume] in Serum or PlasmaOrdered By: Bakari Escalera on 02-44-3297Kcfkoco [Mass/Vol]9.6 mg/dL8.6-10.3FMemorial Health System Selby General HospitalCarbon dioxide, total [Moles/volume] in Serum or PlasmaOrdered By: Bakari Escalera on 21-10-7344AB6 [Moles/Vol]28.5 mmol/L21.0-31.0[facility] HospitalChloride [Moles/volume] in Serum or PlasmaOrdered By: Bakari Escalera on 36-70-6156Slsjiapr [Moles/Vol]106 mmol/Y12-951AebznxecnMercy Health – The Jewish HospitalCholesterol [Mass/volume] in Serum or PlasmaOrdered By: Bakari Escalera on 10-05-2022 Cholesterol [Mass/Vol]154 mg/zC161-718EpbkfjpxjMercy Health – The Jewish HospitalComment on above:Chol less than 200 mg/dl low riskChol 201-239 mg/dl borderline riskChol 240 mg/dl and greater high riskCholesterol in LDL Calc [Mass/Vol]Ordered By: Bakari Escalera on 21-60-6502Ibpxpxpiyht in LDL [Mass/Vol]89 mg/dL0-100[facility] HospitalComment on above:LDL ATP III CLASSIFICATIONLDL less than 100 mg/dL OptimalLDL 100-129 mg/dL Near or above xrggiujIJU872-385 mg/dL Borderline highLDL 160-189 mg/dL HighLDL greater than 189 mg/dL Very high Cholesterol in VLDL Calc [Mass/Vol]Ordered By: Bakari Escalera on 10-05-2022 Cholesterol in VLDL [Mass/Vol]11 mg/dLMercy Health – The Jewish HospitalColor Auto (U)Ordered By: Bakari Escalera on 15-72-6198Kgbzo (U)YellowYellowMercy Health – The Jewish HospitalCreatinine [Mass/volume] in Serum or PlasmaOrdered By: Bakari Escalera on 20-88-7648Rwngrpzpyl [Mass/Vol]0.93 mg/dL0.60-1.20[facility] HospitalEosinophils Auto (Bld) [#/Vol]Ordered By: Bakari Escalera on 98-61-7053Aavvordpgic (Bld) [#/Vol]0.1 10*3/uL0.0-0.45[facility] HospitalEosinophils/100 WBC Auto (Bld)Ordered By: Bakari Escalera on 42-36-3054Qvrwjksrssu/100 WBC (Bld)1.0 %.[facility] Erythrocyte distribution width Auto (RBC) [Ratio]Ordered By: Bakari Escalera on 44-21-0568Yhikdwkceqs distribution width (RBC) [Ratio]13.0 %11.9-15.3FMemorial Health System Selby General HospitalGlobulin Calc (S) [Mass/Vol]Ordered By: Bakari Escalera on 48-42-6933Uoojpgtn (S) [Mass/Vol]2.4 g/dLMercy Health – The Jewish Hospital Glucose [Mass/volume] in Serum or PlasmaOrdered By: Bakari Escalera on 10-05-2022 Glucose [Mass/Vol]89 mg/wU62-627SjbctbrhkMercy Health – The Jewish HospitalComment on above:ADA recommended reference rangeRandom Glucose Reference Range is dependent on time and content of last meal. Glucose of more than 200 mg/dL in a nonstressed, ambulatory subject supports the diagnosisof Diabetes Mellitus. Hematocrit Auto (Bld) [Volume fraction]Ordered By: Bakari Escalera on 10-05-2022 Hematocrit (Bld) [Volume fraction]41.0 %34.0-46.4FMemorial Health System Selby General HospitalHemoglobin [Mass/volume] in BloodOrdered By: Bakari Escalera on 10-05-2022 Hemoglobin (Bld) [Mass/Vol]13.4 g/dL11.8-15.4FMemorial Health System Selby General Hospital Ketones Auto test strip (U) [Mass/Vol]Ordered By: Bakari Escalera on 10-05-2022 Ketones (U) [Mass/Vol]NegativeNegativeMercy Health – The Jewish Hospital Laboratory - UrinalysisOrdered By: Bakari Escalera on 30-54-2950Rpisywb casts LM Ql (Urine sed)0-8 [LPF]0-8[facility] HospitalLeukocytes [#/volume] corrected for nucleated erythrocytes in Blood by Automated counOrdered By: Bakari Escalera on 77-82-2362TXA corrected for nucl RBC Auto (Bld) [#/Vol]6.9 10*3/uL 3.8-11.6FMemorial Health System Selby General HospitalLymphocytes Auto (Bld) [#/Vol]Ordered By: Bakari Escalera on 35-75-1196Khrfgetuvqu (Bld) [#/Vol]2.1 10*3/uL1.00-4.8 [facility] HospitalLymphocytes/100 WBC Auto (Bld)Ordered By: Bakari Escalera on 97-59-8126Iurkrisczpd/100 WBC (Bld)31.0 %.[facility] HospitalH Auto (RBC) [Entitic mass]Ordered By: Bakari Escalera on 19-58-1575XDS (RBC) [Entitic mass]29.1 pg24.7-34.3FMemorial Health System Selby General HospitalMCHC Auto (RBC) [Mass/Vol]Ordered By: Bakari Escalera on 51-06-8712JJUS (RBC) [Mass/Vol]32.6 g/dL32.0-35.0[facility] HospitalMCV Auto (RBC) [Entitic vol] Ordered By: Bakari Escalera on 31-22-1821MOE (RBC) [Entitic vol]89.1 tL93-376 [facility] HospitalMonocytes Auto (Bld) [#/Vol]Ordered By: Bakari Escalera on 08-14-2990Pkbmhmurt (Bld) [#/Vol]0.5 10*3/uL0.0-0.8[facility] HospitalMonocytes/100 WBC Auto (Bld)Ordered By: Bakari Escalera on 10-05-2022 Monocytes/100 WBC (Bld)7.2 %.[facility] HospitalNeutrophils Auto (Bld) [#/Vol]Ordered By: Bakari Escalera on 44-37-5560Ojakozmlyeh (Bld) [#/Vol]4.1 10*3/uL1.8-7.7FMemorial Health System Selby General HospitalNeutrophils/100 WBC Auto (Bld) Ordered By: Bakari Escalera on 31-84-6889Uchujktlniq/100 WBC (Bld)60.2 %.[facility] HospitalNitrite Test strip Ql (U)Ordered By: Bakari Escalera on 90-87-3979Mgenmlv Ql (U)NegativeNegativeMercy Health – The Jewish HospitalNo Panel InformationOrdered By: Bakari Escalera on 26-75-8214Ywpkcwtvy GFR (CKD-EPI)> 60.0 mL/MinMercy Health – The Jewish HospitalPharmacy Creatinine Clearance (Chem N/AFMemorial Health System Selby General HospitalNucleated erythrocytes [Presence] in Blood by Automated countOrdered By: Bakari Escalera on 88-19-1134Lwlzgkdid RBC Auto Ql (Bld)0.1 /100{WBC}0-0.5FMemorial Health System Selby General HospitalPlatelet mean volume Auto (Bld) [Entitic vol]Ordered By: Bakari Escalera on 94-14-9385Vzuhmezf mean volume (Bld) [Entitic vol]7.7 fL6.3-10.7FMemorial Health System Selby General Hospital Platelets Auto (Bld) [#/Vol]Ordered By: Bakari Escalera on 09-71-0462Zqentmysd (Bld) [#/Vol]293 10*3/zU896-946RbyuxuxsdMercy Health – The Jewish HospitalPotassium [Moles/volume] in Serum or PlasmaOrdered By: Bakari Escalera on 95-13-0997Xpfddndrt [Moles/Vol]4.6 mmol/L3.5-5.1FMemorial Health System Selby General HospitalProtein Auto test strip (U) [Mass/Vol]Ordered By: Bakari Escalera on 87-95-8291Wakuino (U) [Mass/Vol] NegativeNegativeMercy Health – The Jewish HospitalProtein [Mass/volume] in Serum or PlasmaOrdered By: Bakari Escalera on 95-18-5803Pxbxnxl [Mass/Vol]6.8 g/dL6.4-8.9 [facility] HospitalRBC Auto (Bld) [#/Vol]Ordered By: Bakari Escalera on 50-02-7531ECX (Bld) [#/Vol]4.60 10*6/uL3.60-5.00[facility] Centererum or plasma albumin/globulin mass ratioOrdered By: Bakari Escalera on 74-17-0753Fvtqtwd/Globulin [Mass ratio]1.8 {ratio}[facility] Centererum or plasma anion gap determinationOrdered By: Bakari Escalera on 25-02-0003Mbfaa gap [Moles/Vol]11.1 mmol/L6.0-15.0[facility] Centererum or plasma high density lipoprotein (HDL) cholesterol measurement Ordered By: Bakari Escalera on 02-29-6209Aghwcttuexl in HDL [Mass/Vol]53 mg/dL23-92 [facility] HospitalComment on above:HDL CHOL ATP-III CLASSIFICATION Cardiovascular RiskHDL > or equal to 60 mg/dL LOWHDL < 40 mg/dL HIGHSerum or plasma total cholesterol/high density lipoprotein (HDL) cholesterol mass ratOrdered By: Bakari Escalera on 31-70-7362Deelirtoeps.total/Cholesterol in HDL [Mass ratio]2.9 {ratio}<5.0[facility] Centerodium [Moles/volume] in Serum or PlasmaOrdered By: Bakari Escalera on 41-72-8274Kulebp [Moles/Vol]141 mmol/H906-576Byoycodvl Regional Medical CenterSpecific gravity Auto test strip (U) [Rel density]Ordered By: Bakari Escalera on 49-77-0668Ffuijkul gravity (U) [Rel density]1.0231.001-1.030[facility] Squamous epithelial cells detection in urine sediment by light microscopyOrdered By: Bakari Escalera on 06-65-3699Rygujelwil cells.squamous LM Ql (Urine sed)3-4 [HPF]0-2FMemorial Health System Selby General HospitalThyrotropin [Units/volume] in Serum or PlasmaOrdered By: Bakari Escalera on 49-10-2458YYD Qn2.13 m[IU]/L0.45-5.33[facility] HospitalTriglyceride [Mass/volume] in Serum or PlasmaOrdered By: Bakari Escalera on 19-32-9144Bsusldtnhlwr [Mass/Vol]58 mg/dL0-149[facility] HospitalComment on above:TRIG ATP III CLASSIFICATIONTRIG less than 150 mg/dL NormalTRIG 150-199 mg/dL Borderline highTRIG 200-500 mg/dL High TRIG greater than 500 mg/dL Very highStandard traceable to the Center for Disease Conrtrol and Prevention (CDC) test method.Urea nitrogen [Mass/volume] in Serum or PlasmaOrdered By: Bakari Escalera on 37-68-4884Wtes nitrogen [Mass/Vol]18 mg/dL7-25[facility] HospitalUrine bacteria detection by automated methodOrdered By: Bakari Escalera on 88-91-8137Vpkyutjb Auto Ql (U)None seenNone SeenMercy Health – The Jewish HospitalUrine clarity by refractometry automated Ordered By: Bakari Escalera on 01-94-5297Yalqquq Refractometry automated (U)Cloudy ClearMercy Health – The Jewish HospitalUrine glucose measurement by automated test strip (mass/volume)Ordered By: Bakari Escalera on 89-97-3831Inzgubz Auto test strip (U) [Mass/Vol]Normal mg/dLNormalMercy Health – The Jewish HospitalUrine hemoglobin detection by automated test stripOrdered By: Bakari Escalera on 38-75-0257Mclknawvrp Auto test strip Ql (U)NegativeNegativeMercy Health – The Jewish HospitalUrine leukocyte esterase detection by automated test stripOrdered By: Bakari Escalera on 92-38-3913Ebrqfvphy esterase Auto test strip Ql (U)Negative NegativeMercy Health – The Jewish HospitalUrobilinogen Auto test strip (U) [Mass/Vol]Ordered By: Bakari Escalera on 65-10-9163Iamgfjuqjehr (U) [Mass/Vol] Normal mg/dLNormalMercy Health – The Jewish HospitalWBC Auto (Bld) [#/Vol]Ordered By: Bakari Escalera on 14-23-1098OZO (Bld) [#/Vol]6.9 10*3/uL3.8-11.6FMemorial Health System Selby General HospitalpH Auto test strip (U)Ordered By: Bakari Escalera on 95-28-8787kH (U)7.0 [pH]5.0-9.0[facility] HospitalOffice Visit (Cardiology)on 71-79-1853Gcgfof-up visitDiagnoses/Problems Assessed Hypotension (458.9) (I95.9) Class 1 obesity with body mass index (BMI) of 30.0 to 30.9 in adult (278.00,V85.30) (E66.9,Z68.30) Never a smoker Orders Class 1 obesity with body mass index (BMI) of 30.0 to 30.9 in adult Healthy Weight Tips; Status:Complete - Retrospective Authorization; Done: [id number] Some eating tips that can help you lose weight.; Status:Complete - Retrospective Authorization; Done: [id number] SocHx: Never a smoker Tobacco Use Screening; Status:Complete; Done: [id number] Patient Instructions Follow up in 6 months [...] Never a smoker Vitals Vital Signs Recorded: 18Hhj1560 11:58AM Height5 ft 10 in Depgll345 lb BMI Psvevaolie00.56 kg/m2 BSA Calculated2.14 Tobacco Useb) No Falls Screening (Age 18+)a) No falls within the last year Systolic Lying98, RUE, Supine Diastolic Lying60, RUE, Supine Systolic Hhbvogk68, RUE, Sitting Diastolic Iwiawls95, RUE, Sitting Systolic Nziyeyks719, RUE, Standing Diastolic Qxscyqtt59, RUE, Standing Heart Rate Lying78, R Radial Heart Rate Yqceymf93, R Radial Heart Rate Smomsxsz85, R Radial Signatures Electronically signed by : Ariel Calderon MD; Aug 31 2022 12:44PM EST (Author) [facility] Screening.on 80-23-2346Nnli risk assessmenta) [facility] within the [facility] yearWind[facility] 600 DO Work Phone: Tobacco use status CPHSb) NoMP-[facility] 600 [facility] Work Phone: Psychiatry Adulton [phone] AdultProvider Impressions IMP: 31 yo M w/ ADEN. [...] 06/19,. Denies psychologically traumatic, but painful at [facility] . INTERIM: Denies new medications. Taking [...] site) was utilized to providethis telehealth service. Verbal consent was requested and [...] endorse auditory or (more content not included)... NormalUH TouchworksSELECT SPECIALTY [facility]OS[facility] AUTO DIFFon 84-74-4305GCUY #0.0 103/ulNormal0.0-0.1The Kindred HealthcareComment on above:Performed By: #### CBC #### [facility] [address] [address] [address] Katharine Brownphils/100 WBC (Bld)0.5 %Normal0.2-2.0The [facility] Comment on above:Performed By: #### CBC #### [facility] [address] [address] [address] Katharine Patton #0.0 103/ulNormal0.0-0.7The Kindred HealthcareComment on above: Performed By: #### CBC #### [facility] [address] [place] [address] Dr. Katharine Aldridgeosinophils/100 WBC (Bld)0.2 %Critically low0.9-7.0The Kindred HealthcareComment on above:Performed By: #### CBC #### [facility] [address] [place] [address] Dr. Katharine Aldridgerythrocyte distribution width (RBC) [Ratio]12.1 %Vzoyue59.0-15.0 The Kindred HealthcareComment on above:Performed By: #### CBC #### [facility] [address] [place] [address] Dr. Katharine HoldenHematocrit (Bld) [Volume fraction]44.6 %Zfjsnx07.0-48.0The Kindred HealthcareComment on above:Performed By: #### CBC #### [facility] [address] [place] [address] Dr. Katharine HoldenHemoglobin (Bld) [Mass/Vol]14.2 g/fXRcwlem72.0-16.0The Kindred HealthcareComment on above:Performed By: #### CBC #### [facility] [address] [place] [address] Dr. Katharine Lynne #0.02 10e3/ulNormal0.00-0.03The Kindred HealthcareComment on above:Performed By: #### CBC #### [facility] [address] [place] [address] Dr. Katharine Lynne %0.3 %Normal0.0-0.5The Kindred HealthcareComment on above: Performed By: #### CBC #### [facility] [address] [place] [address] Dr. Katharine ArtH #1.0 103/ulCritically low1.2-3.8The [facility] Comment on above:Performed By: #### CBC #### [facility] [address] [place] [address] Dr. Katharine Collinsmphocytes/100 WBC (Bld)17.8 %Critically low20.5-60.0The Kindred HealthcareComment on above:Performed By: #### CBC #### [facility] [address] [place] [address] Dr. Katharine GanUAL DIFF REQNONormalThe Kindred HealthcareComment on above: Performed By: #### CBC #### [facility] [address] [place] [address] Dr. Katharine Turcios (RBC) [Entitic mass]28.9 tcLztryr73.7-34.0The Kindred HealthcareComment on above:Performed By: #### CBC #### [facility] [address] [place] [address] Dr. Katharine Turcios (RBC) [Mass/Vol]31.8 g/hBFirrqj16.9-35.2The Kindred HealthcareComment on above:Performed By: #### CBC #### [facility] [address] [place] [address] Dr. Katharine Turcios (RBC) [Entitic vol]90.7 gGLfrgcl16.0-99.0The Kindred HealthcareComment on above:Performed By: #### CBC #### [facility] [address] [place] [address] Dr. Katharine Hyde #0.4 103/ulNormal0.3-0.8The Kindred HealthcareComment on above:Performed By: #### CBC #### [facility] [address] [place] [address] Dr. Katharine Maciasocytes/100 WBC (Bld)7.0 %Normal1.7-12.0[facility] Comment on above:Performed By: #### CBC #### [facility] [address] [place] [address] Dr. Katharine Garay #4.3 103/ulNormal1.4-6.5The [facility] Hospitalment on above:Performed By: #### CBC #### [facility] [address] [address] [address] Katharine HoldenNeutrophils/100 WBC (Bld)74.2 %Xjqqqy03.0-75.0The [facility] on above:Performed By: #### CBC #### [facility] [address] [address] [address] Katharine HoldenPlatelet mean volume (Bld) [Entitic vol]9.8 fLNormal9.5-13.5The [facility] HealthcareComchelsea hospital on above:Performed By: #### CBC #### [facility] [address] [place] [address] Dr. Katharine HoldenPLT256 103/vrIncwll805-661Cqd [facility] on above: Performed By: #### CBC #### [facility] [address] [place] [address] Dr. Katharine HoldenRBC4.92 106/ulNormal4.20-5.40The [facility] on above:Performed By: #### CBC #### [facility] [address] [place] [address] Dr. Katharine HoldenWBC5.7 103/ulNormal4.0-11.0The [facility] on above: Performed By: #### CBC #### [facility] [address] [place] [address] Dr. Katharine HamiltonG HCG QUALon 80-73-4009GYAKWLZXW, QUALNegativeNormalNEGATIVE The [facility] HealthcareComchelsea hospital on above:Performed By: #### PREG #### [facility] [address] [place] [address] Dr. Katharine HoldenPROF 14(COMP METB)on 38-55-1601Pwdpwcw [Mass/Vol]3.7 g/dLNormal 3.4-5.0[facility] on above:Performed By: #### CMP #### [facility] [address] [place] [address] Dr. Yilan ChangAlbumin/Globulin [Mass ratio]1.1 {ratio}NormalThe Kindred HealthcareComment on above:Performed By: #### CMP #### [facility] [address] [address] [address] Katharine Duarte [Catalytic activity/Vol]91 U/FLjjelx59-474Ghf Kindred HealthcareComment on above:Performed By: #### CMP #### [facility] [address] [address] [address] Katharine Gonzalez [Catalytic activity/Vol]28 U/ZTjllxq71-00Dnt [facility]red HealthcareComment on above:Performed By: #### CMP #### [facility] [address] [place] [address] Dr. Katharine Clineon gap [Moles/Vol]12.6 mmol/LNormalThe [facility] Comment on above:Performed By: #### CMP #### [facility] [address] [place] [address] Dr. Katharine HoldenAST [Catalytic activity/Vol]18 U/FAddqww81-37Mij [facility]red HealthcareComment on above:Performed By: #### CMP #### [facility] [address] [place] [address] Dr. Katharine HoldenBilirubin [Mass/Vol]0.3 mg/dLNormal0.2-1.0The [facility] Comment on above:Performed By: #### CMP #### [facility] [address] [place] [address] Dr. Katharine HoldenCalcium [Mass/Vol]8.5 mg/dLNormal8.5-10.1[facility] Comment on above:Performed By: #### CMP #### [facility] [address] [address] [address] Katharine HoldenChloride [Moles/Vol]105 mmol/NYvrehr39-872Vob [facility] Comment on above:Performed By: #### CMP #### [facility] [address] [address] [address] Katharine HoldenCO2 [Moles/Vol]25.9 mmol/PChjkyt78.0-32.0The [facility] Comment on above:Performed By: #### CMP #### [facility] [address] [address] [address] Katharine HoldenCreatinine [Mass/Vol]0.95 mg/dLNormal0.55-1.02The Kindred HealthcareComment on above:Performed By: #### CMP #### [facility] [address] [address] [address] Katharine AldridgeGFR-AF FAROESE>60Normal>=60The Kindred HealthcareComment on above:Performed By: #### CMP #### [facility] [address] [address] [address] Katharine AldridgeGFR-NON AF FAROESE>60Normal>=60The Kindred HealthcareComment on above:Performed By: #### CMP #### [facility] [address] [address] [address] Katharine HoldenGlobulin (S) [Mass/Vol]3.4 g/dLNormalThe Kindred HealthcareComment on above:Performed By: #### CMP #### [facility] [address] [address] [address] Katharine HoldenGlucose [Mass/Vol]108 mg/dLCritically wcdu79-196Age Kindred HealthcareComment on above:Performed By: #### CMP #### [facility] [address] [address] [address] Katharine HoldenPotassium [Moles/Vol]3.5 mmol/LNormal3.5-5.1The [facility] Comment on above:Performed By: #### CMP #### [facility] [address] [address] [address] Katharine HoldenProtein [Mass/Vol]7.1 g/dLNormal6.4-8.2The [facility] Comment on above:Performed By: #### CMP #### [facility] [address] [address] [address] Katharine HoldenSodium [Moles/Vol]140 mmol/AIzohek313-745Pqs [facility] Comment on above:Performed By: #### CMP #### [facility] [address] [place], [place] [address] Dr. Katharine Gil nitrogen [Mass/Vol]11.0 mg/dLNormal7.0-18.0The [facility] on above:Performed By: #### CMP #### [facility] [address] [place], [place] [address] Dr. Katharine HoldenUrea nitrogen/Creatinine [Mass ratio]11.6 mg/mgNormalThe Kindred HealthcareComment on above:Performed By: #### CMP #### [facility] [address] [place], [place] [address] Dr. Katharine HoldenPsychiatry Adulton 08-32-8708Bpnrboyhky AdultOrders Anxiety and depression Renew: buPROPion HCl ER (XL) 150 MG Oral Tablet Extended Release 24 Hour; TAKE 1 TABLET DAILY DIRECTED Anxiety disorder Renew: Sertraline HCl - 50 MG Oral Tablet; TAKE 1.5 TABLET BY MOUTH EVERY MORNING Provider Impressions IMP: 31 yo M w/ ADEN. MDE. PMH Hx of Infertility, now , Anxiety and Depression. Adopted a baby boyCornelius, now 21 months old, and delivered baby 06/19/2021 via unassisted conception. Stressors include recent of grandmother in Jan 2020, loss of other family in past few yrs. .PP after urgent CSX for baby girlTiti, on 06/19,. Denies psychologically traumatic, but painful at [facility] . INTERIM: Reduced Sertraline from 100 mg to 75 mg and remains on current dose of Wellbutrin 150mg XLx 2 ys. . Now at 11 months pp. Mood is 'going well ', denies SI/HI. Still gets anxious, but feelingmore like herself .Also gets more irritable, impatient w/ and children do not sleep throughnight getting about 6-7 hours per night. Still BFing aiming for 6-7 month s. No new medication. Desiring to reduce Sertraline to 50 mg po qam. ANXIETY Self rates 6- . Since delivery some fears ofdying and leaving her children, recently lost cousin [...] site) was utilized to providethis telehealth service. Verbal consent was requested and [...] No agitation or retarda (more content not included)...NormalUH TouchworksCT Head or Brain w/o Contrast*on 42-59-3377LW Head or Brain w/o Contrast*CLINICAL HISTORY: Headaches and nausea after recent head [...] signed by Juan Antonio Pagan on 03/11/2022 1809NormalNortavenir behavioral [facility] SpecialistPsychiatry Adulton 96-69-1662Pcvddfvlru Adult Diagnoses/Problems Assessed Anxiety disorder (300.00) (F41.9) Orders Anxiety disorder Start: Sertraline HCl - 50 MG Oral Tablet; TAKE 1.5 TABLET BY MOUTH EVERY MORNING Provider Impressions IMP: 31 yo M w/ ADEN. MDE. PMH Hx of Infertility, now , Anxiety and Depression. Adopted a baby boyCornelius, now 21 months old, and delivered baby 06/19/2021 via unassisted conception. Stressors include recent of grandmother in Jan 2020, loss of other family in past few yrs. .PP after urgent CSX for baby girlTiti, on 06/19,. Denies psychologically traumatic, but painful at [facility] . INTERIM: Now at 4 month pp. No new medical issues, had COVID , and managed. Still BFing noting babyexperiencing mild increased anxiety, sleeping well . Reduced [...] holiday break. Sees Prerna Forde [facility]. 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 Verbal consent was requested and [...] 4:42:24 PM Augmentin Hives;; Updated By: Lorenza Hlaey; 07/22/2021 4:42:24 PM Ceclor CAPS Hives;; Recorded [...] Perception: Does not endors (more content not included)...NormalUH TouchworksPsychiatry Adulton 34-43-2214Caxbgjblsd AdultDiagnoses/Problems Assessed Anxiety and depression (300.00,311) (F41.9,F32.A) Orders [...] XL. PP after urgent CSX for baby girlTiti, on 06/19,. Denies psychologically traumatic, but painful at [facility].Now 7 month pp. Feeling like Zombie since increased SSRI ie cannot concentration, since onset in September/Oct, at that time started new job x 3 months, hard to adjust. 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 Endorsing depressed mood,low motivation, socially, isolated. No SI/HI Childcare is home daycare by sitting by mother. Seeingtherapist q 2-3 weeks. Depression self rates 5/10 and anxiety 8/10. Sleep every 3 hours for 6-7 hours, per night. Discussed r/b/a for decreasing SRRI and keeping Wellbutrin same for now. If no changewill increase Wellbutrin to 300mg XL po qam [...] site) was utilized to providethis telehealth service. Verbal consent was requested and [...] Appropriate with full range (more content not included)...NormalUH TouchworksBasophils Auto (Bld) [#/Vol]Ordered By: Bakari Escalera on 09-25-2021 Basophils (Bld) [#/Vol]0.0 10*3/uL0.0-0.2FMemorial Health [facility] Basophils/100 WBC Auto (Bld)Ordered By: Bakari Escalera on 26-31-2474Aavmkoxii/100 WBC (Bld)0.5 %.[facility] HospitalBlood hemoglobin measurement (mass/volume)Ordered By: Bakari Escalera on 88-82-8633Yvsumqkmfr (Bld) [Mass/Vol] 13.0 g/dL11.8-15.4FMemorial Health System Selby General HospitalBlood leukocytes automated count (number/volume)Ordered By: Bakari Escalera on 98-21-7985MZM (Bld) [#/Vol]5.8 10*3/uL4.5-11.0[facility] HospitalBody fluid albumin measurement (mass/volume)Ordered By: Bakari Escalera on 99-56-8625Ffeycpc (Body fld) [Mass/Vol] 3.9 g/dL3.2-5.5FMemorial Health System Selby General HospitalCreatinine and Glomerular filtration rate.predicted panel (S/P/Bld)Ordered By: Bakari Escalera on 09-25-2021 Creatinine [Mass/Vol]0.84 mg/dL0.44-1.03[facility] Eosinophils Auto (Bld) [#/Vol]Ordered By: Bakari Escalera on 86-83-9091Jupzbvglicv (Bld) [#/Vol]0.0 10*3/uL0.0-0.45[facility] HospitalEosinophils/100 WBC Auto (Bld)Ordered By: Bakari Escalera on 46-53-0699Pfddfkuprhk/100 WBC (Bld) 0.8 %.[facility] HospitalErythrocyte distribution width Auto (RBC) [Ratio]Ordered By: Bakari Escalera on 46-49-0948Rjtfqayxwad distribution width (RBC) [Ratio]13.3 %11.9-15.3FMemorial Health System Selby General HospitalEstimated glomerular filtration rate (GFR) non- AmericanOrdered By: Bakari Escalera on 37-34-2268CYT/1.73 sq M.predicted among non-blacks MDRD (S/P/Bld) [Vol rate/Area]> 60 mL/MinMercy Health – The Jewish HospitalGlobulin Calc (S) [Mass/Vol]Ordered By: Bakari Escalera on 52-47-3209Qmklblca (S) [Mass/Vol]2.4 g/dL [facility] HospitalHematocrit Auto (Bld) [Volume fraction]Ordered By: Bakari Escalera on 50-15-0498Ooergxscbh (Bld) [Volume fraction]40.4 %34.0-46.4 [facility] HospitalLaboratory - Hematology and Cell countsOrdered By: Bakari Escalera on 95-07-9525Uvkkydcuv RBC/100 WBC (Bld) [Ratio]0.0 %0-0.5 [facility] HospitalLymphocytes Auto (Bld) [#/Vol]Ordered By: Bakari Escalera on 66-24-9823Wugddesyhay (Bld) [#/Vol]1.9 10*3/uL1.00-4.8[facility] HospitalLymphocytes/100 WBC Auto (Bld)Ordered By: Bakari Escalera on 17-97-6058Xvvpytoryej/100 WBC (Bld)33.3 %.[facility] [place] Auto (RBC) [Entitic mass]Ordered By: Bakari Escalera on 10-00-6975GCN (RBC) [Entitic mass]28.4 pg24.7-34.3FGrand Lake Joint Township District Memorial HospitalHC Auto (RBC) [Mass/Vol]Ordered By: Bakari Escalera on 71-47-6611AKUS (RBC) [Mass/Vol]32.0 g/dL 32.0-35.0[facility] HospitalMCV Auto (RBC) [Entitic vol]Ordered By: Bakari Escalera on 51-05-7201DZU (RBC) [Entitic vol]88.8 aH72-718DacqbundaMercy Health – The Jewish HospitalMonocytes Auto (Bld) [#/Vol]Ordered By: Bakair Escalera on 21-09-5621Wltsavpck (Bld) [#/Vol]0.4 10*3/uL0.0-0.8[facility] HospitalMonocytes/100 WBC Auto (Bld)Ordered By: Bakari Escalera on 09-25-2021 Monocytes/100 WBC (Bld)6.3 %.[facility] HospitalNeutrophils Auto (Bld) [#/Vol]Ordered By: Bakari Escalera on 22-36-7177Weecqqrdctf (Bld) [#/Vol]3.4 10*3/uL1.8-7.7FMemorial Health System Selby General HospitalNeutrophils/100 WBC Auto (Bld) Ordered By: Bakari Escalera on 72-98-8856Pahivjjnqkp/100 WBC (Bld)59.1 %.[facility] HospitalNo Panel InformationOrdered By: Bakari Escalera on 06-40-0501Kecrbaprw GFR ()> 60 mL/MinMercy Health – The Jewish HospitalComment on above:GFR estimated reference range: According to KDOQI guidelines, <60 ml/min/1.73m2 is sufficient todiagnose a patient with chronic kidney disease.Pharmacy Creatinine Clearance (ChemN/[facility]lower HospitalPlatelet mean volume Auto (Bld) [Entitic vol]Ordered By: Bakari Escalera on 53-92-7903Qermniix mean volume (Bld) [Entitic vol]8.5 fL6.3-10.7FMemorial Health System Selby General HospitalPlatelets Auto (Bld) [#/Vol]Ordered By: Bakari Escalera on 30-78-1704Ubrippnvz (Bld) [#/Vol]282 10*3/rA505-301XbyidmukwMercy Health – The Jewish HospitalProtein [Mass/volume] in Serum or PlasmaOrdered By: Bakari Escalera on 19-26-4257Dvpdrue [Mass/Vol]6.3 g/dL6.1-7.9[facility] HospitalRBC Auto (Bld) [#/Vol]Ordered By: Bakari Escalera on 47-35-8092KMR (Bld) [#/Vol]4.56 10*6/uL3.60-5.00[facility] Medical Centererum or plasma alanine aminotransferase measurement without P-5'-P (enzymatic activiOrdered By: Bakari Escalera on 41-35-6326ZYL No additional P-5'-P [Catalytic activity/Vol]15 U/L10-60 [facility] Centererum or plasma albumin/globulin mass ratio Ordered By: Bakari Escalera on 70-66-2577Cnwtuqq/Globulin [Mass ratio]1.6 {ratio} [facility] Centererum or plasma alkaline phosphatase measurement (enzymatic activity/volume)Ordered By: Bakari Escalera on 06-71-5318QWE [Catalytic activity/Vol]63 U/R55-65OokgvakkrUniversity Hospitals TriPoint Medical Centererum or plasma aspartate aminotransferase measurement (enzymatic activity/volume)Ordered By: Bakari Escalera on 72-90-9854ZEI [Catalytic activity/Vol]16 U/X74-99WmjeqdqvjUniversity Hospitals TriPoint Medical Centererum or plasma calcium measurement (mass/volume)Ordered By: Bakari Escalera on 98-56-6277Uqfkhug [Mass/Vol]9.9 mg/dL8.2-10.2FWexner Medical Centererum or plasma chloride measurement (moles/volume) Ordered By: Bakari Escalera on 37-44-3599Psobzode [Moles/Vol]103 mmol/L95-114 [facility] Centererum or plasma glucose measurement (mass/volume)Ordered By: Bakari Escalera on 40-75-1535Jxfduyc [Mass/Vol]81 mg/dL 70-100[facility] HospitalComment on above:ADA recommended reference range Random Glucose Reference Range is dependent on time and content of last meal. Glucose of more than 200 mg/dL in a nonstressed, ambulatory subject supports the diagnosis of Diabetes Mellitus.Serum or plasma potassium measurement (moles/volume)Ordered By: Bakari Escalera on 40-34-1795Ldevbbpaf [Moles/Vol]4.7 mmol/L3.5-5.1FWexner Medical Centererum or plasma sodium measurement (moles/volume)Ordered By: Bakari Escalera on 90-57-3336Tkubto [Moles/Vol]138 mmol/W181-813HrrurgpkqUniversity Hospitals TriPoint Medical Centererum or plasma total bilirubin measurement (mass/volume)Ordered By: Bakari Escalera on 27-56-4094Ojabtrnap [Mass/Vol]0.5 mg/dL0.3-1.2FWexner Medical Centererum or plasma total carbon dioxide measurement (moles/volume)Ordered By: Bakari Escalera on 09-25-2021 CO2 [Moles/Vol]29.8 mmol/L22.0-30.0[facility] Centererum or plasma urea nitrogen measurement (mass/volume)Ordered By: Bakari Escalera on 35-97-9747Ktxd nitrogen [Mass/Vol]15 mg/dL9-23[facility] TSH DL <= 0.005 mIU/L QnOrdered By: Bakari Escalera on 65-72-8118IEL Qn1.07 m[IU]/L 0.45-5.33[facility] HospitalTobacco Screening.on 33-78-4357Uccfech use status CPHSb) NoMP-[facility] DO Work Phone: Tobacco Screening.YesMP-[facility]-[address] DO Work Phone: CBC AUTO DIFFon 71-41-2297OQOX #0.0 103/ulNormal 0.0-0.1The Kindred HealthcareComment on above:Performed By: #### CBC #### [facility] [address] [address] [address] Katharine HoldenBasophils/100 WBC (Bld)0.2 %Normal0.2-2.0The [facility] Comment on above:Performed By: #### CBC #### [facility] [address] [address] [address] Katharine Patton #0.0 103/ulNormal0.0-0.7The Kindred HealthcareComment on above: Performed By: #### CBC #### [facility] [address] [address] [address] Katharine Aldridgeosinophils/100 WBC (Bld)0.3 %Critically low0.9-7.0The Kindred HealthcareComment on above:Performed By: #### CBC #### [facility] [address] [address] [address] Katharine Aldridgerythrocyte distribution width (RBC) [Ratio]12.1 %Eaassi67.0-15.0 The Kindred HealthcareComment on above:Performed By: #### CBC #### [facility] [address] [address] [address] Katharine HoldenHematocrit (Bld) [Volume fraction]41.6 %Ibkqmv89.0-48.0The [facility]red HealthcareComment on above:Performed By: #### CBC #### [facility] [address] [address] [address] Katharine HoldenHemoglobin (Bld) [Mass/Vol]13.2 g/mPOjhixn40.0-16.0The [facility] HospitalComment on above:Performed By: #### CBC #### [facility] [address] [address] [address] Katharine Lynne #0.04 10e3/ulCritically high0.00-0.03The [facility] Comment on above:Performed By: #### CBC #### [facility] [address] [address] [address] Katharine Lynne %0.4 %Normal0.0-0.5The Kindred HealthcareComment on above: Performed By: #### CBC #### [facility] [address] [address] [address] Katharine Simons #0.9 103/ulCritically low1.2-3.8The [facility] Comment on above:Performed By: #### CBC #### [facility] [address] [place] [address] Dr. Katharine Arthocytes/100 WBC (Bld)9.5 %Critically low20.5-60.0[facility] HospitalComment on above:Performed By: #### CBC #### [facility] [address] [address] [address] Katharine GanUAL DIFF REQNONormalThe Kindred HealthcareComment on above: Performed By: #### CBC #### [facility] [address] [address] [address] Katharine Turcios (RBC) [Entitic mass]29.2 exJsihsy81.7-34.0The [facility]red HealthcareComment on above:Performed By: #### CBC #### [facility] [address] [place] [address] Dr. Katharine Turcios (RBC) [Mass/Vol]31.7 g/iNLuxijx21.9-35.2The [facility]red HealthcareComment on above:Performed By: #### CBC #### [facility] [address] [place] [address] Dr. Katharine Turcios (RBC) [Entitic vol]92.0 aOHxtjvk46.0-99.0[facility] Medical Centerment on above:Performed By: #### CBC #### [facility] [address] [address] [address] Katharine Hyde #0.6 103/ulNormal0.3-0.8The Kindred HealthcareComment on above:Performed By: #### CBC #### [facility] [address] [address] [address] Katharine Maciasocytes/100 WBC (Bld)6.7 %Normal1.7-12.0[facility] Comment on above:Performed By: #### CBC #### [facility] [address] [address] [address] Katharine Garay #7.9 103/ulCritically high1.4-6.5The [facility] Comment on above:Performed By: #### CBC #### [facility] [address] [place] [address] Dr. Katharine Membrenoutrophils/100 WBC (Bld)82.9 %Critically high43.0-75.0The [facility]red HealthcareComment on above:Performed By: #### CBC #### [facility] [address] [place] [address] Dr. Katharine Camargo mean volume (Bld) [Entitic vol]9.1 fLCritically low 9.5-13.5The [facility]red HealthcareComment on above:Performed By: #### CBC #### [facility] [address] [place] [address] Dr. Katharine HoldenPLT269 103/bxPmxvrp990-653Tau Kindred HealthcareComment on above: Performed By: #### CBC #### [facility] [address] [place] [address] Dr. Katharine HoldenRBC4.52 106/ulNormal4.20-5.40The [facility]red HealthcareComment on above:Performed By: #### CBC #### [facility] [address] [place] [address] Dr. Katharine HoldenWBC9.6 103/ulNormal4.0-11.0The Jack HospitalComment on above: Performed By: #### CBC #### [facility] [address] [place] [address] Dr. Katharine Tamayo-19 PCR (CVDTB)on 16-83-1528QEWW-CoV-2 (COVID-19) RNA GABRIEL+probe Ql (Unsp spec)Not detectedNormalNOT DETECTEDOhiohealth Berger Hospital Comment on above:Result Comment: When diagnostic testing is negative, the [...] for this test is supported by the [place] of Health and Human Service's declaration that circumstances exist to justify the emergency use of in vitro diagnostics for the detection and/or diagnosis of the virus that causes COVID-19. This EUA will remain in effect for the duration of the COVID-19 declaration justifying emergency of IVDs, unless it is terminated or revoked by the FDA (after which the test may no longer be used).Performed By: #### CVDTBH #### [facility] [address] [place] [address] Dr. Katharine Mg URINE PROFILEon 41-30-1855Gjlejjdbb Ql (U)SMALLAbnormal NEGATIVEOhiohealth Berger HospitalComchelsea hospital on above:Performed By: #### KIKA BLAKELY #### [facility] [address] [place] [address] Dr. Katharine Richard (U)CLEARNormalCLEAROhiohealth Berger HospitalComment on above: Performed By: #### THERESE BLAKELYRO #### [facility] [address] [place] [address] Dr. Katharine Doyle (U)YELLOWNormalYELLOWThe [facility]red HealthcareComment on above: Performed By: #### THERESE BLAKELYRO #### [facility] [address] [place] [address] Dr. Katharine Schmitt micrscopic examination will be performed if indicated. NormalOhiohealth Berger HospitalComment on above:Performed By: #### THERESE BLAKELYRO #### [facility] [address] [place] [address] Dr. Katharine HoldenGlucose Ql (U)NegativeNormalNEGATIVEOhiohealth Berger HospitalComment on above:Performed By: #### THERESE BLAKELYRO #### [facility] [address] [place] [address] Dr. Katharine HoldenHemoglobin Ql (U)NegativeNormalNEGHolzer Hospital Comment on above:Performed By: #### THERESE BLAKELYRO #### [facility] [address] [place] [address] Dr. Katharine HoldenKetones Ql (U)40 mg/dlAbnormalNEGHolzer Hospital Comment on above:Performed By: #### THERESE BLAKELYRO #### [facility] [address] [place] [address] Dr. Katharine HoldenLEUKOCYTESTRACEAbnormalNEGATIVEOhiohealth Berger HospitalComment on above:Performed By: #### KIKA BLAKELY #### [facility] [address] [place] [address] Dr. Katharine Rebollartrite Ql (U)NegativeNormalNEGHolzer HospitalComment on above:Performed By: #### THERESE BLAKELYRO #### [facility] [address] [place] [address] Dr. Katharine HoldenpH (U)6.0 [pH]Normal5-9Ohio[facility] HospitalComment on above: Performed By: #### THERESE BLAKELYRO #### [facility] [address] [place] [address] Dr. Katharine HoldenSPEC GRAVITY1.698Zmjklk6.005-<=1.025Ohio[facility] Berger HospitalComment on above:Performed By: #### THERESE BLAKELYRO #### [facility] [address] [place] [address] Dr. Katharine HoldenUA PROTEINNegativeNormalNEGATIVE/ TRACEThe [facility] Comment on above:Performed By: #### KIKA BLAKELY #### [facility] [address] [place] [address] Dr. Katharine BRITO INDINDICATEDNoProMedica Memorial HospitalComment on above: Performed By: #### KIKA BLAKELY #### [facility] [address] [place] [address] Dr. Katharine Torres Qn (U)0.2 {Sabino'U}/dLNormal0.2 - 1.0The [facility] HealthcareComment on above:Performed By: #### KIKA BLAKELY #### [facility] [address] [place] [address] Dr. Katharine Ashby AND B AGon 62-82-0343SVVFMPGFUIKFXEast Liverpool City HospitalComment on above:Result Comment: Negative for Flu A protein angiten. Infection due to Flu A cannot be ruled out. FluA angiten in the sample may be below the detection limit of the test.Performed By: #### INFLUAB #### [facility] [address] [place] [address] Dr. Katharine OrtegaUBNEGMercy Health Clermont HospitalComment on above: Result Comment: Negative for Flu B protein antigen. Infection due to Flu B cannot be ruled out. FluB antigen in the sample may be below the detection limit of the test.Performed By: #### INFLUAB #### [facility] [address] [place] [address] Dr. Katharine Ashby AGNegativeNormalNEGATIVE SEE COMMENTThe Kindred HealthcareComment on above:Performed By: #### INFLUAB #### [facility] [address] [place] [address] Dr. Katharine Robertson AGNegativeNormalNEGATIVE SEE COMMENTThe [facility]red HealthcareComment on above:Performed By: #### INFLUAB #### [facility] [address] [place] [address] Dr. Yilan ChangINTERNAL CONTROLSWithin Normal LimitsNormalWithin Normal Limits The [facility]red HealthcareComment on above:Performed By: #### INFLUAB #### [facility] [address] [place] [address] Dr. Katharine HoldenLACTATE/LACTIC ACIDon 71-87-2861Canyjxm [Moles/Vol]0.7 mmol/L Normal0.4-1.9The [facility]red HealthcareComment on above:Performed By: #### CMP, LIPA #### [facility] [address] [place] [address] Dr. Katharine HoldenLIPASEon 04-10-3919Kwbiga [Catalytic activity/Vol]61.0 U/L Critically low73.0-393.0The [facility]red HealthcareComment on above:Performed By: #### CMP, LIPA #### [facility] [address] [place] [address] Dr. Katharine HoldenPROF 14(COMP METB)on 14-17-7381Mujvdxq [Mass/Vol]3.7 g/dLNormal 3.4-5.0The [facility] HealthcareComment on above:Performed By: #### CMP, LIPA #### [facility] [address] [place] [address] Dr. Katharine HoldenAlbumin/Globulin [Mass ratio]1.0 {ratio}NormalThe [facility]red HealthcareComchelsea hospital on above:Performed By: #### CMP, LIPA #### [facility] [address] [place] [address] Dr. Katharine LeeP [Catalytic activity/Vol]101 U/LNkqlpe47-188Nit [facility] Hospitalment on above:Performed By: #### CMP, LIPA #### [facility] [address] [place] [address] Dr. Katharine Gonzalez [Catalytic activity/Vol]24 U/JZxenvo88-18[facility] on above:Performed By: #### CMP, LIPA #### [facility] [address] [place] [address] Dr. Katharine Ferrara gap [Moles/Vol]14.7 mmol/LNormalOhiohealth Berger Hospital Comment on above:Performed By: #### CMP, LIPA #### [facility] [address] [address] [address] Katharine HoldenAST [Catalytic activity/Vol]14 U/LCritically lkz77-26Xkm Kindred HealthcareComment on above:Performed By: #### CMP, LIPA #### [facility] [address] [address] [address] Katharine HoldenBilirubin [Mass/Vol]0.6 mg/dLNormal0.2-1.0[facility] Comment on above:Performed By: #### CMP, LIPA #### [facility] [address] [place] [address] Dr. Katharine HoldenCalcium [Mass/Vol]8.6 mg/dLNormal8.5-10.1[facility] Comment on above:Performed By: #### CMP, LIPA #### [facility] [address] [place] [address] Dr. Katharine HoldenChloride [Moles/Vol]102 mmol/WZmbeuv39-879JzlOhiohealth [facility] Hospital Comment on above:Performed By: #### CMP, LIPA #### [facility] [address] [place] [address] Dr. Katharine HoldenCO2 [Moles/Vol]24.2 mmol/VXjpvgv64.0-32.0[facility] Comment on above:Performed By: #### CMP, LIPA #### [facility] [address] [place] [address] Dr. Katharine HoldenCreatinine [Mass/Vol]0.95 mg/dLNormal0.55-1.02[facility] HospitalComment on above:Performed By: #### CMP, LIPA #### [facility] [address] [place] [address] Dr. Katharine Brice-AF FAROESE>60Normal>=60The [facility]red HealthcareComment on above:Performed By: #### CMP, LIPA #### [facility] [address] [place] [address] Dr. Yilan ChangEGFR-NON AF FAROESE>60Normal>=60The [facility] HealthcareComment on above:Performed By: #### CMP, LIPA #### [facility] [address] [place] [address] Dr. Katharine HoldenGlobulin (S) [Mass/Vol]3.8 g/dLNormCincinnati Shriners HospitalComment on above:Performed By: #### CMP, LIPA #### [facility] [address] [address] [address] Katharine HoldenGlucose [Mass/Vol]105 mg/vDAbbltn04-923Nie [facility] Comment on above:Performed By: #### CMP, LIPA #### [facility] [address] [place] [address] Dr. Katharine HoldenPotassium [Moles/Vol]3.9 mmol/LNormal3.5-5.1[facility] Comment on above:Performed By: #### CMP, LIPA #### [facility] [address] [place] [address] Dr. Katharine HoldenProtein [Mass/Vol]7.5 g/dLNormal6.4-8.2[facility] Comment on above:Performed By: #### CMP, LIPA #### [facility] [address] [place] [address] Dr. Katharine HoldenSodium [Moles/Vol]137 mmol/OLzrruf579-621Nqv [facility] Comment on above:Performed By: #### CMP, LIPA #### [facility] [address] [place] [address] Dr. Katharine HoldenUrea nitrogen [Mass/Vol]20.0 mg/dLCritically high7.0-18.0The [facility] HealthcareComment on above:Performed By: #### CMP, LIPA #### [facility] [address] [place] [address] Dr. Katharine HoldenUrea nitrogen/Creatinine [Mass ratio]21.1 mg/mgNoProMedica Memorial HospitalComment on above:Performed By: #### CMP, LIPA #### [facility] [address] [address] [address] Katharine Torres MICROSCOPIC ONLYon 44-38-4079FLQYLJSBXEMLCVvnfxyteHEIX SEEN [facility] on above:Performed By: #### REDDY UMICRO #### [facility] [address] [place] [address] Dr. Katharine Monte identified Cx Nom (U)NOT INDICATEDNormalThTriHealth Bethes[facility] HospitalComchelsea hospital on above:Performed By: #### REDDY UMICRO #### [facility] [address] [place] [address] Dr. Katharine Gibbons SEENNormalNONE SEENTriHealth McCullough-[facility] on above:Performed By: #### REDDY UMICRO #### [facility] [address] [place] [address] Dr. Katharine Locoystals LM Nom (Urine sed)NONE SEENNormalNONE SEENTriHealth [facility]ull[facility] on above:Performed By: #### SHERRILL BLAKELYICRO #### [facility] [address] [place] [address] Dr. Alcantar ChangEpithelial cells LM Ql (Urine sed)NONE SEENNormalNONE SEEN /RARE [facility] on above:Performed By: #### REDDY UMICRO #### [facility] [address] [place] [address] Dr. Katharine AllenMALLAbnormalNONE SEENTriHealth [facility] on above:Performed By: #### REDDY UMICRO #### [facility] [address] [place] [address] Dr. Katharine Narayanan SEENAbnormal0-2[facility] on above: Performed By: #### REDDY UMICRO #### [facility] [address] [place] [address] Dr. Katharine BernalBC0-2AbnormalNONE SEENTriHealth [facility] on above: Performed By: #### SHERRILL BLAKELYICRO #### [facility] [address] [address] [address] Katharine HoldenHematocriton 21-29-7048Dknvwjlwgo (Bld) [Volume fraction]41.9 % See IdgswQK-WLUCU-Vkodvr 310 IVF Work Phone: Comment on above:Reference Range: 36.0 - 46.0 Progesterone, Serumon 02-51-8763Pjzsdtpqcnag [Mass/Vol]1.6 ng/eUNX-VKPNT-Zwafzj 310 IVF Work Phone: Comment on above:Progesterone is performed using the [employer] Access Immunoassay. Progesterone testing is performed using a different test methodology at [facility] than other [facility]. Direct result comparison should only be made within the same method.REF VALUESMALE <0.2-0.8 FOLLICULAR PHASE <0.2-1.5 LUTEAL PHASE 7.4-15.4 POSTMENOPAUSAL <0.2-0.2 1ST TRIMESTER 12.0-84.0 2ND TRIMESTER 10.2-58.8 3RD TRIMESTER 46.5-160HCG, Beta Quantitativeon 82-40-3801ODV.beta subunit Qn2 m[IU]/sMFA-Wonienmrzi-MspecClinton County Hospital 201B DO Work Phone: Comment on above:Low-level positive HCG results can be seen in early , in fiona- or post-menopausal females due to normal pituitary HCG production, or with analytic interference. Repeat testing in 48-72 hourscan aid in assessing for as results should double in this time period. FSH measurement isrecommended in fiona- or post-menopausal females as concurrent elevation of FSH can support pituitary production as the source of the HCG elevation.. Total HCG measurement is performed using the [employer] Access Immunoassay which detects intact HCG and free beta HCG subunit. This test is not indicated for use as a tumor marker. HCG testing is performed using a different test methodology at [facility] than other [facility]. Direct result comparison should only be made within the same method. REF VALUESNON FEMALE <5MALES <5Progesterone, Serumon 08-13-2020 Progesterone [Mass/Vol]5.5 ng/sBLU-Njgphapufp-OvtbcClinton County Hospital 201B DO Work Phone: Comment on above:Progesterone is performed using the [employer] Access Immunoassay. Progesterone testing is performed using a different test methodology at [facility] than [facility]. Direct result comparison should only be made within the same method.REF VALUESMALE <0.2-0.8 FOLLICULAR PHASE <0.2-1.5 LUTEAL PHASE 7.4-15.4 POSTMENOPAUSAL <0.2-0.2 1ST TRIMESTER 12.0-84.0 2ND TRIMESTER 10.2-58.8 3RD TRIMESTER 46.5-160Estradiol, Serumon 39-75-9594L7 [Mass/Vol]557 pg/mL SE-SNGKF-Fkqmyz 310 IVF Work Phone: Comment on above:Estradiol measurement is performed using the [employer] Access Sensitive Estradiol Immunoassay. Estradiol testing is performed using a different test methodology at [facility]. Direct result comparison should only be made within the same method.REF VALUESEARLY FOLLICULAR 22-115MID FOLLICULAR 25- 115OVULATORY PEAK 32-517MID LUTEAL 37-246POSTMENOPAUSE <15- 25MALE <15- 32 Estradiol, Serumon 72-37-5261O1 [Mass/Vol]204 pg/uNDZ-KSEEW-Xjjjod 310 IVF Work Phone: Comment on above:Estradiol measurement is performed using the [employer] Access Sensitive Estradiol Immunoassay. Estradiol testing is performed using a different test methodology at [facility]. Direct result comparison should only be made within the same method.REF VALUESEARLY FOLLICULAR 22-115MID FOLLICULAR 25- 115OVULATORY PEAK 32-517MID LUTEAL 37-246POSTMENOPAUSE <15- 25MALE <15- 32 Estradiol, Serumon 48-56-9418Y9 [Mass/Vol]36 pg/iSDA-DFYSD-Pwfrnl 310 IVF Work Phone: Comment on above:Estradiol measurement is performed using the [employer] Access Sensitive Estradiol Immunoassay. Estradiol testing is performed using a different test methodology at [facility]. Direct result comparison should only be made within the same method.REF VALUESEARLY FOLLICULAR 22-115MID FOLLICULAR 25- 115OVULATORY PEAK 32-517MID LUTEAL 37-246POSTMENOPAUSE <15- 25MALE <15- 32 [facility] Surgical Pathology Departmenton [id number] Surgical Pathology DepartmentName JESSICA VALDEZ Pathologist: KAYLEIGH MOLINA MD Date of Procedure: 11/14/2019 Date Received: 11/14/2019 Date Reported 11/15/2019 Submitting Physician: SHAILA CONLEY MD Location: [facility] External # FINAL DIAGNOSIS A. LEFT PELVIC SIDEWALL: -- FRAGMENT OF FIBROADIPOSE AND FIBROCONNECTIVE TISSUE WITH FOCAL FEATURES SUGGESTIVE OF ENDOMETRIOSIS. B. LEFT PELVIC SIDEWALL: -- FRAGMENTS OF FIBROADIPOSE AND FIBROCONNECTIVE TISSUE WITH NO SIGNIFICANT PATHOLOGICAL FINDINGS. Electronically Signed Out By KALYEIGH MOLINA MD/RFA By the signature on this report, the individual or group listed as making the Final Interpretation/Diagnosis certifies that they have reviewed this case. [...] specimen is entirely submitted in one cassette. KLHeron kls/11/14/2019 [facility] Department of Pathology [address] [place], [place] [address]22NoNovant Health Rehabilitation HospitalComment on above:Performed By: #### MUSCOGEE #### [facility] Surgical Pathology Department [address] [place], [place] [address]History and Physical - Surgery > 30 dayson [id number] and Physical - Surgery > 30 daysHistory of Present Illness: /Lactating: Are You no [...] the note. I personally evaluated the patient [id number] Attending Provider Inpatient Certification StatementObservation patient/other outpatient visits Electronic Signatures: Shaila Fink (Fellow)) (Signed 13-Nov-2019 18:39) Authored: History of Present Illness, Home Medication Review, Impression/Procedure, Physical Exam, Consent, Signatures/Attestation Shaila Conley) (Signed 16-Nov-2019 09:55) Authored: Signatures/Attestation Co-Signer: History of Present Illness, Home Medication Review, Impression/Procedure, Physical Exam, Consent, Signatures/Attestation Last Updated: 16-Nov-2019 09:55 by Shaila Conley)[facility] - Preop v2on 83-01-5036Sfunuys Profile - Preop v0Qbpjjrx: Initial Info: How to be AddressedCortney Spoken Language PreferredEnglish Are you currently using the Personal Electronic Health Record or PM PediatricsCAREyes Stated Reason for Admissionlaparoscopic removal of nendometriosis Primary Contact Name and NumberRob [phone] Patient Belongingssee checklist Medications Brought to Hospitalno General Health: Weight in kg91 kilogram(s) Weight in bjw624.6 pound(s) Weight Methodactual (measured) Scale Typestanding Height in feet5 feet Height in bjxbah62 inch(es) Height in cm177.8 centimeter(s) Height Methodstated [...] instruction; written material Cultural Considerationsnone Developmental Considerationsnone Protestant Considerationsnone Other learner availableno Falls RiskPatient location auto qualifies him/her for HIGH RISK. Are there any cultural, spiritual, quaker practices/values/needs that are important for us to [...] Physical - Surgery > 30 days 14-Nov-2019 00:00[facility] LafayettePreop Checkliston [id number] Checklist Preop Checklist: Preop Checklist: Arrival [id number] Arrival Time09:50 Procedure Typelaparoscopic excision of endometriosis, chromopertubation, diagnostic hysteroscopy NPO [id number] 21:00 ID Band Onyes Allergy Bandyes Consent Signedpending H&P Completepending Anesthesia Assessment Completedpending EKG Performednot ordered Chest X-Ray Performednot ordered HCG Urine TestComplete Chlorhexadine Bath Givennot applicable Nasal Antiseptic Appliednot applicable Hair Washedyes Soap and water bath with hair shampoo the night before surgeryyes Hat placed on infant prior to transportnot applicable SCD's Appliedsent to OR STEPHEN Hose Appliedyes Denturesnot applicable Prostheticsnot applicable Hearing [...] Last Updated: 14-Nov-2019 10:02 by Bakari Ashby (LEE)[facility] Vital Signs Date TimeVital SignValuePerforming FpyngmcqyYppmmctm94-93-2443 14:35-0500Body .3 cmAriel Calderon MD Work Phone: [phone] [place], [place] 1605211-10-2025 14:35-0500 Body mass index (BMI) [Ratio]32.34 kg/l8TvjnysAriel Calderon MD Work Phone: [phone])[address]11-10-2025 14:35-0500 Body zliihp06.34 kgAriel Calderon MD Work Phone: [phone])[address]11-10-2025 14:35-0500 Diastolic blood zhngspeu71 mm[Hg]Ariel Calderon MD Work Phone: [phone])[address]11-10-2025 14:35-0500 Heart rate68 /minAriel Calderon MD Work Phone: [phone])[address]11-10-2025 14:35-0500 Systolic blood mm[Hg]Ariel Calderon MD Work Phone: [phone]11-04-2025 11:13-0500 Body .3 Riri BAUTISTA Work Phone: [facility] CenterYdlmdyfpuv59-76-8283 11:13-0500Body mass index (BMI) [Ratio]32.78 kg/m2Merari BAUTISTA Work Phone: [facility] CenterVivivwppoc11-53-3719 11:13-0500Body mguzpb086.7 kgMerari BAUTISTA Work Phone: [facility] CenterVmfsqrkwwb70-26-9604 11:13-0500Diastolic blood mm[Hg]Merari BAUTISTA Work Phone: [facility] CenterRjgkkdbfon96-27-6347 11:13-0500Systolic blood xrktobay698 mm[Hg]Merari BAUTISTA Work Phone: [facility] CenterXsscchbjpk26-99-3497 09:53-0400Body uhzrbe527.8 cmDaleón Escalera DO Work Phone: [phone] [place], [place] 3908810-22-2025 09:53-0400 Body mass index (BMI) [Ratio]31.7 kg/h3Cxjzf Girnina DO Work Phone: [phone])[address] [place], [place] 3908810-22-2025 09:53-0400 Body hwmjqqbeaiz69.9 [degF]Bakari Escalera DO Work Phone: [phone] [place], [place] 3908810-22-2025 09:53-0400 Body oenamr642.24 kgDaleón Escalera DO Work Phone: [phone] [place], [place] 3908810-22-2025 09:53-0400 Diastolic blood jmsaogdw63 mm[Hg]Bakari Escalera DO Work Phone: [phone] [place], [place] 3908810-22-2025 09:53-0400 Heart rate80 /minDaviyaron Escalera DO Work Phone: [phone] [place], [place] 3908810-22-2025 09:53-0400 SaO2% (BldA) [Mass fraction]98 %Bakari Escalera DO Work Phone: [phone])[address] [place], [place] 3908810-22-2025 09:53-0400 Systolic blood rydcsjva440 mm[Hg]Bakari Escalera DO Work Phone: [phone])[address] [place], [place] 3908809-15-2025 09:34-0400 Body kjtmxi887.8 cmDaleón Escalera DO Work Phone: [phone])[address] [place], [place] 3908809-15-2025 09:34-0400 Body mass index (BMI) [Ratio]32.4 kg/k0Wdzteleón Escalera DO Work Phone: [phone])[address] [place], [place] 3908809-15-2025 09:34-0400 Body jifcyadvxtt19.5 [degF]Bakari Escalera DO Work Phone: [phone])[address] [place], [place] 3908809-15-2025 09:34-0400 Body .51 kgDaleón Escalera DO Work Phone: [phone])[address] [place], [place] 3908809-15-2025 09:34-0400 Diastolic blood mm[Hg]Bakari Escalera DO Work Phone: [phone])[address] [place], [place] 3908809-15-2025 09:34-0400 Heart rate95 /Vik Escalera DO Work Phone: [phone])[address] [place], [place] 3908809-15-2025 09:34-0400 SaO2% (BldA) [Mass fraction]98 %Bakari Escalera DO Work Phone: [phone])[address] [place], [place] 3908809-15-2025 09:34-0400 Systolic blood zlgiizyq472 mm[Hg]Bakari Madisonnina DO Work Phone: [phone] [place], [place] 3908806-03-2025 12:40-0400 Body azinls771.8 cmDaleón Escalera DO Work Phone: [phone] [place], [place] 3908806-03-2025 12:40-0400 Body mass index (BMI) [Ratio]32.1 kg/c2Czgealeón Escalera DO Work Phone: [phone])[address] [place], [place] 3908806-03-2025 12:40-0400 Body vygwtmtdtut94.9 [degF]Bakari Griceldannia DO Work Phone: [phone])[address] [place], [place] 3908806-03-2025 12:40-0400 Body nqlegh673.6 kgDaleón Escalera DO Work Phone: [phone])[address] [place], [place] 3908806-03-2025 12:40-0400 Diastolic blood asjwuter97 mm[Hg]Bakari Escalera DO Work Phone: 1(515)[address] [place], [place] 3908806-03-2025 12:40-0400 Heart rate90 /Vik Griceldavin DO Work Phone: [phone] [place], [place] 3908806-03-2025 12:40-0400 SaO2% (BldA) [Mass fraction]99 %Bakari Escalera DO Work Phone: [facility]06-03-2025 12:40-0400 Systolic blood imzmpcvq249 mm[Hg]Bakari Escalera DO Work Phone: [facility]05-27-2025 13:47-0400 Body mass index (BMI) [Ratio]34.72 kg/j6Pfufm Fazio DO Work Phone: [facility] CenterCesnnpzojk80-24-3979 13:47-0400Body feitdb912.06 kgCorejohn Tannero DO Work Phone: [facility] CenterClqfcqpxve35-30-3908 13:47-0400Diastolic blood hsonihyz88 mm[Hg]Ruddy Tannero DO Work Phone: [facility] CenterYaxxwymwcz08-31-5062 13:47-0400Systolic blood mm[Hg]Ruddy Mejia DO Work Phone: [phone] [place], [place] [address]Bcxbmziygc26-91-5806 07:44-0400Body xfplgu447.8 cmDaleón Escalera DO Work Phone: [facility]04-15-2025 07:44-0400 Body .25 kgDaleón Escalera DO Work Phone: [facility]2025 14:31-0400 Diastolic blood ayjvglht20 mm[Hg]Neha [address] [place] [address] 05-09-2024 14:31-0400Heart rate83 /minEly [address] [place] [address] 05-09-2024 14:31-0400Systolic blood gyorpuse785 mm[Hg]Neha [address] [place], [place] 2307503-17-2025 15:28-0400Body mwvohb209.8 cmMer[facility]03-17-2025 15:28-0400Body mass index (BMI) [Ratio]32.8 kg/g5NglnxpzdrMercy Health – The Jewish Hospital03-17-2025 15:28-0400Body bttsvvjooon09.3 [degF][facility]03-17-2025 15:28-0400Body tikxpg913.87 kgMer[facility] Health – [facility]03-17-2025 15:28-0400Diastolic blood eeznncsp44 mm[Hg] [facility]03-17-2025 15:28-0400Heart czcy767 /min [facility]03-17-2025 15:28-3877DoH1% (BldA) [Mass fraction]99 %[facility]03-17-2025 15:28-0400Systolic blood rmarrdra728 mm[Hg][facility]02-21-2025 15:29-0500 Body ixwtvtzgqfd47.5 [degF]Inga Josue [employer] Work Phone: [phone]02-21-2025 15:29-0500Diastolic blood mm[Hg]Inga Josue [employer] Work Phone: [phone] [address]02-21-2025 15:29-0500Heart ekcz676 /min Inga Josue [employer] Work Phone: [phone]02-21-2025 15:29-4551SnJ2% (BldA) [Mass fraction]100 %Inga Josue [employer] Work Phone: [phone])[address]02-21-2025 15:29-0500Systolic blood iylhitzj830 mm[Hg]Inga Josue [employer] Work Phone: 1([phone] [place], [place] [address]Czhztkplmk95-43-9041 13:43-0500Body bmunme245.8 cmMer[facility]02-13-2025 13:43-0500Body mass index (BMI) [Ratio]32.4 kg/s5GicvgnwrtMercy Health – The Jewish Hospital02-13-2025 13:43-0500Body tnfcrswovdd35.1 [degF][facility]02-13-2025 13:43-0500Body dpupmu054.51 kgMercy Health – The [facility] Hospital02-13-2025 13:43-0500Diastolic blood sysdldgg07 mm[Hg][facility]02-13-2025 13:43-0500 Heart bsxo174 /minMercy Health – The Jewish Hospital02-13-2025 13:43-0500 Respiratory rate18 /minMercy Health – The Jewish Hospital02-13-2025 13:43-0500 SaO2% (BldA) [Mass fraction]98 %[facility]02-13-2025 13:43-0500Systolic blood ixxwkehs383 mm[Hg][facility] 02-02-2024 15:38-0500Body mass index (BMI) [Ratio]34.69 kg/o2Urarutwcharli Josue [employer] Work Phone: [phone]12-12-2024 15:38-0500Body temperature 97.7 [degF]Inga Josue [employer] Work Phone: 1(222)[address] [place], [place] 1331212-12-2024 15:38-0500Body mphxbe559.97 kgInga Josue [employer] Work Phone: 1(523)[address] [place], [place] 1331212-12-2024 15:38-0500Diastolic blood cunbwbbu00 mm[Hg]Inga Josue [employer] Work Phone: 1(103)[address] [place], [place] 1331212-12-2024 15:38-0500Heart rate89 /min Inga Josue [employer] Work Phone: 1(794)329-[address] [place], [place] [address]Paarnokssk40-08-1501 15:38-4005LdU7% (BldA) [Mass fraction]99 %Inga Josue [employer] Work Phone: [phone] [place], [place] [address]Vevwlwxjsm98-95-9643 15:38-0500Systolic blood himddigg841 mm[Hg]Inga Josue [employer] Work Phone: 1(925)566-[address] [place], [place] [address]Fozaamljrn98-07-5687 14:54-0500Diastolic blood dmxacysd08 mm[Hg]Ariel Calderno MD Work Phone: [facility]11-08-2024 14:54-0500 Systolic blood mcsfqodh943 mm[Hg]Ariel Calderon MD Work Phone: [facility]11-08-2024 14:35-0500 Body rxpvel118.3 cmAriel Calderon MD Work Phone: [address] [place], [place] 7357111-08-2024 14:35-0500 Body mass index (BMI) [Ratio]32.52 kg/i9WcfaetAriel Calderon MD Work Phone: [facility]11-08-2024 14:35-0500 Body rmbyry90.88 kgAriel Calderon MD Work Phone: [facility]11-08-2024 14:35-0500 Heart rate86 /minAriel Calderon MD Work Phone: [phone] [place], [place] 1605210-09-2024 15:39-0400 Body mass index (BMI) [Ratio]34.41 kg/n2Zbxzsucc Rinkes DO Work Phone: 1(138)[address] [place], [place] 7315910-09-2024 15:39-0400Body pjobie001.15 kgKathleen Rinkes DO Work Phone: 1(584)[address] [place], [place] 7315910-09-2024 15:39-0400Diastolic blood fqaptppe00 mm[Hg]Riddhi Rinkes DO Work Phone: 1(777)[address] [place], [place] 7315910-09-2024 15:39-0400Systolic blood gjeiwvqh127 mm[Hg]Riddhi Rinkes DO Work Phone: 1(481)[facility] [place], [place] [address]Gqcjzdhccu64-02-7082 15:37-0400Body vurpsv662.5 cmKathleen Rinkes DO Work Phone: 1(597)[facility] [place], [place] [address]Vsojrzrbtt46-27-3241 15:37-0400Body mass index (BMI) [Ratio]34.57 kg/u1Enqpobvx Rinkes DO Work Phone: 1(271)[facility] [place], [place] [address]Cuddfimmob62-43-9920 15:37-0400Body ayqrjc449.61 kgKathleen Rinkes DO Work Phone: 1(225)[facility] [place], [place] [address]Iupifetngm62-38-3445 15:37-0400Diastolic blood ukxcaxnu73 mm[Hg]Riddhi Rinkes DO Work Phone: 1(023)[facility] [place], [place] [address]Ogofbmcyhv60-90-8702 15:37-0400Systolic blood mm[Hg]Riddhi Rinkes DO Work Phone: 1(615)[facility] [place], [place] [address]Chlmchdlps37-84-2693 11:24-0500Body .8 cmDO Bakari Escalera Work Phone: [facility]12-19-2023 11:24-0500 Body epmwfr58.52 kgDO Bakari Escalera Work Phone: [facility]08-09-2023 09:30-0400 Body .09 cmBakari Escalera Other [employer] Other 740065-14-8752 09:30-0400Body mass index (BMI) [Ratio] 32.78 kg/v6CymizBakari Ecsalera Other [employer] Other 512165-33-9896 09:30-0400Body hewbvjxjlnd20.6 [degF]Bakari Escalera Other [employer] Other 784816-89-7738 09:30-0400Body bvgtga63.07 kgDaleón Escalera Other [facility] Other 531149-93-3907 09:30-0400Diastolic blood dhpuygdl16 mm[Hg] Bakari Escalera Other [employer] Other 08-09-2023 09:30-0400Respiratory rate18 /Vik Escalera Other [facility] Other 452903-37-0024 09:30-8941IkM7% (BldA) [Mass fraction]98 % Bakari Escalera Other [employer] Other 08-09-2023 09:30-0400Systolic blood xvilylxb09 mm[Hg] Bakari Escalera Other [employer] Other 07-11-2023 11:58-0400Body unvbvk436.8 cmDaleón Escalera Work Phone: 1(330) 618-4438694-5696EA-Nbvla [facility] 600 DO Work Phone: 1(345) 987-153607-11-2023 11:58-0400Body mass index (BMI) [Ratio] 30.56 kg/l2UirzlBakari Escalera Work Phone: 1(786) 902-2759459-0945RF-[facility]msds [facility] 600 DO Work Phone: 1(492) 899-529507-11-2023 11:58-0400Body surface area Derived from formula2.14 r2Qiasmleón Escalera Work Phone: [phone]) [phone]-Ybpen [facility] 600 DO Work Phone: 1(892) [phone] 11:58-0400Body fnnuei25.62 kgDaleón Escalera Work Phone: 1(178) [phone]-CqqgvMay[facility] 600 DO Work Phone: 1(294) 277-143107-11-2023 11:58-0400Diastolic blood fkoptdfe41 mm[Hg] Bakari Escalera Work Phone: 1(298) [phone]-Reesi [facility] 600 DO Work Phone: 1(307) [phone] 11:58-0400Systolic blood yweqjguh37 mm[Hg] Bakari Escalera Work Phone: 1(182) [phone]-Wnvzd [facility] 600 DO Work Phone: 1(298) [phone] 11:58-0400Systolic blood ekzfnyri009 mm[Hg] Bakari Escalera Work Phone: 1(821) [phone]-Kctgp [facility] 600 DO Work Phone: 1(984) 413-104207-11-2023 11:58-341956 1Dtessie Escalera Work Phone: 1(682) [phone]-Vjeeh [facility] 600 DO Work Phone: Comment on above:AZPRoqrTzCDLJvfrFyo30-69-9612 11:58-216664 1Dtessie Escalera Work Phone: 1(701) [phone]-Uxphw [facility] 600 DO Work Phone: Comment on above:XHNUkvgIg91-47-9149 16:45-0500Body .09 cmPamelbam David Other [employer] Other 12-07-2022 16:45-0500Body mass index (BMI) [Ratio] 29.87 kg/n5Efukkp Joann Other [employer] Other 12-07-2022 16:45-0500Body emkhyqubmqy24.9 [degF]Mayuri Joann Other [employer] Other 12-07-2022 16:45-0500Body cuyznq04.45 kgMayuri David Other [employer] Other 12-07-2022 16:45-0500Diastolic blood pgxivhox05 mm[Hg] Mayuri Joann Other [employer] Other 12-07-2022 16:45-0500Respiratory rate18 /minMayuri David Other [employer] Other 12-07-2022 16:45-4722HhM5% (BldA) [Mass fraction]100 % Mayuri Joann Other [employer] Other 12-07-2022 16:45-0500Systolic blood sharddgn262 mm[Hg] Mayuri David Other [employer] Other 07-27-2022 09:39-0400Body ymgzrc024.8 cmDavid C Girvin Work Phone: [phone]-Mahlf [facility] 250 DO Work Phone: 1(160) [phone] 09:39-0400Body mass index (BMI) [Ratio] 30.28 kg/b2Ozfnw C Nilay Work Phone: 1(934) [phone]-TtugbMay[facility] 250 DO Work Phone: 1(829) [phone] 09:39-0400Body surface area Derived from formula2.14 l4Ssffh C Nilay Work Phone: 1(887) [phone]-FpcnvA[facility] 250 DO Work Phone: 1(362) 321-615507-27-2022 09:39-0400Body fikmrg35.71 kgDaleón Thomas Nilay Work Phone: 1(772) [phone]-VncdlA[facility] 250 DO Work Phone: 1(540) [phone] 09:39-0400Diastolic blood mm[Hg] Bakari Thomas Nilay Work Phone: 1(565) [phone]-KxnluAbbott [facility] 250 DO Work Phone: 1(368) [phone] 09:39-0400Heart rate70 /minDtessie Thomas Nilay Work Phone: 1(751) [phone]-DukfoAbbott [facility] Hospital 250 DO Work Phone: 1(466) 240-678207-27-2022 09:39-0400Systolic blood jwkgweip070 mm[Hg] Bakari Thomas Nilay Work Phone: 1(313) [phone]-SwyfzAbbott [facility] Hospital 250 DO Work Phone: 1(624) 313-743104-16-2021 11:50-0400Body sinphl931.8 Wallace Harry APRN-CNPMG-OBGYN-[place] 310 IVF Work Phone: 1(131) 467-754304-16-2021 11:50-0400Body mass index (BMI) [Ratio]28.7 kg/m1BfjpgzKelsi Harry YWJC-VDVUU-CHCAH-[place] 310 IVF Work Phone: 1(882) 180-131004-16-2021 11:50-0400Body surface area Derived from formula2.09 u3KgruefKelsi Harry APRN-CNPMG-OBGYN-[place] 310 IVF Work Phone: 1(341) [phone] 11:50-0400Body ufyuuw16.72 kgKelsi Harry VBMC-JXQIR-KDRHE-[place] 310 IVF Work Phone: 1(204) [phone] 11:50-24152 Odilon Harry APRN-ALL SOURCE ANALYST [place]-QJWPS-Wrgjxl 310 IVF Work Phone: Comment on above:Pain YmffhEhcr55-80-1837 11:50-99772 Odilon Harry APRN-CNPMG-OBGYN-[place] 310 IVF Work Phone: Comment on above: Encounters Encounter DateEncounter TypeCare ProviderFacilityStart: 12-31-2024 End: 68-23-2903Rwgrki outpatient visit 15 minutesAriel Calderon MD Work Phone: [facility]Comment [facility]:Neurocardiogenic pre- syncope (Primary Dx); Hypotension, unspecified hypotension type; Palpitations; BMI 32.0-32.9,adult; Never smoked tobacco; Obesity, Class I, BMI 30-34.9; Anxiety disorder, unspecified typeStart: 12-31-2024 End: 47-49-7410bbgnpbzwobALXNMMChildren's Healthcare of Atlanta Hughes Spalding AmbulatoryStart: 12-26-2024 End: 20-88-2191djwsysncduHYGYXAChildren's Healthcare of Atlanta [facility] AmbulatoryStart: 12-25-2024 End: 95-43-0076Qwgpfhsunny BAUTISTA Work Phone: NOMS Jack OBGYNStart: 12-25-2024 End: 52-94-4445Ebczisdirk BAUTISTA Work Phone: noMS [place] OBGYNStart: 12-25-2024 End: 99-43-6858mbzykpotewAUC RAMEYNot AvailableStart: 12-25-2024 End: 61-64-5858Uayvsb outpatient visit 15 minutesMerari BAUTISTA Work Phone: noms [place] OBGYNComment on above:Breast pain, left; Breast tenderness in female; PCOS (polycystic ovarian syndrome); Abnormal uterine bleeding (AUB)Start: 12-12-2024 End: 64-49-1865eructbhkxkApfhs Girvin DO Work Phone: [facility]vueStart: 12-12-2024 End: 20-17-4860Uogldag encounter procedureDaviyaron William Escalera [facility] Work Phone: Start: 11-15-2024 End: 65-50-1038Ebsoheq encounter procedureDavid William Escalera DO-Lab [place] Work Phone: Start: 11-15-2024 End: 40-19-4689wludbkiiqhCvblu Girvin DO Work Phone: [facility] Work Phone: Start: 11-05-2024 End: 83-82-9263jxrgykkzaqCzkxs Girvin DO Work Phone: [facility] Work Phone: Start: 11-05-2024 End: 90-50-1847Nwzgndb encounter procedureDaviyaron William Escalera [facility] Work Phone: Start: 09-11-2024 End: 27-43-0222Nxotbbgm Result EncounterCorey Jackie DO Work Phone: noms External Department UnsolicitedStart: 09-11-2024 End: 47-41-8940Jhekbfeu Result EncounterCorey Jackie DO Work Phone: noms External Department UnsolicitedStart: 09-11-2024 End: 95-14-7572Gwosylz encounter procedureDavid William Escalera DO-Lab [place] Work Phone: Start: 09-11-2024 End: 30-57-6896qpmmkafjwfPxhnn Girvin DO Work Phone: [facility] Work Phone: Start: 07-30-2024 End: 69-76-6659Ywcheigb Result EncounterCorey Jackie DO Work Phone: noms External Department UnsolicitedStart: 07-30-2024 End: 33-25-7071Purdvedb Result EncounterCorey Jackie DO Work Phone: noms External Department UnsolicitedStart: 07-30-2024 End: 14-46-9699Xrigxci encounter procedureDavid Girvin DO Work Phone: [facility]-Lab [place] Work Phone: Start: 07-30-2024 End: 11-33-9615dxrmtbsksoHcxch Girvin DO Work Phone: [facility] Work Phone: Start: 07-24-2024 End: 96-91-9382nnwbidfdctDwjxt Girvin DO Work Phone: [facility] Work Phone: Start: 07-24-2024 End: 73-40-8533Zxvmlbu encounter procedureDavid Girvin DO Work Phone: [facility] Work Phone: Start: 07-19-2024 End: 98-90-4204Wqvzthvz Result EncounterCorey Jackie DO Work Phone: noms External Department UnsolicitedStart: 07-19-2024 End: 78-50-3009Ajlknknu Result EncounterCorey Jackie DO Work Phone: noms External Department UnsolicitedStart: 07-19-2024 End: 11-66-4222Zatptum encounter procedureDavid Girvin DO Work Phone: [facility]-Lab [place] Work Phone: Start: 07-19-2024 End: 92-21-3542dwareqvvvpFwiir Girvin DO Work Phone: [facility] Work Phone: Start: 07-17-2024 End: 11-70-1292Gpnrzb follow up visit related to original pxCorey Jackie DO Work Phone: noms [facility] OBComment on above:Postoperative examination; Urinary tract infection with hematuria, site unspecified; Yeast infection; Ectopic without intrauterine , unspecified location; PCOS (polycystic ovarian syndrome); Hormone imbalanceStart: 07-17-2024 End: 84-64-3960pvhjlftvyzXXXOG FAZIONot AvailableStart: 62-54-3953Phb-patient / Non-visitDavid Girvin DO Work Phone: [facility] Work Phone: Start: 07-10-2024 End: 72-72-5946aquzddwgnqTqmdk Girvin DO Work Phone: [facility] Work Phone: Start: 07-10-2024 End: 75-03-9660Eylixnjd ReferredDavid Girvin DO Work Phone: [facility]-LAB Path Spec [place] HospStart: 35-79-5391Gif-patient / Non-visitDavid Girvin DO Work Phone: [facility] Work Phone: Start: 07-09-2024 End: 04-52-1775Dimvefua Result EncounterKathleen E Rinkes DO Work Phone: noms External Department UnsolicitedStart: 07-09-2024 End: 12-23-8637Dbsdbolg Result EncounterKathleen E Rinkes DO Work Phone: noms External Department UnsolicitedStart: 07-09-2024 End: 18-74-2424Qhojvpl encounter procedureDavid Girvin DO Work Phone: [facility]-Lab [place] Work Phone: Start: 07-09-2024 End: 87-57-9906dqdbjbqxelKlqwqwzu RinkesFacility:[facility] Centertart: 19-52-6227Isb-patient / Non-visitDavid Girvin DO Work Phone: [facility] Work Phone: Start: 07-07-2024 End: 62-19-0576ltrysgpxmbJijbzi A DiabFacility:[facility] Start: 07-07-2024 End: 92-12-8861Hjerwixj ReferredDavid Nilay DO Work Phone: [facility]-LAB Path Spec [place] HospStart: 07-06-2024 End: 52-96-3068Uunnlzle flow sheetNoms Sws Ob NurseNOMS SWS OBStart: 07-06-2024 End: 60-33-4228hekhsuehykEHDJPHB AUSTINNot AvailableStart: 07-02-2024 End: 44-46-0294Gzvwuzxf Result EncounterKathleen E Rinkes DO Work Phone: noms External Department UnsolicitedStart: 07-02-2024 End: 33-87-3891Eijhbssq Result EncounterKathleen E Rinkes DO Work Phone: noms External Department UnsolicitedStart: 07-02-2024 End: 49-86-1522Iihlgtt encounter procedureDavid Girvin DO Work Phone: [facility]-Lab [place] Work Phone: Start: 07-02-2024 End: 30-49-7662fuouqdboetDiaxm Girvin DO Work Phone: [facility] Work Phone: Start: 06-29-2024 End: 24-13-0281Hzxxhatw Result EncounterKathleen E Rinkes DO Work Phone: noms External Department UnsolicitedStart: 06-29-2024 End: 52-65-1333Rxhrgwmg Result EncounterKathleen E Rinsree DO Work Phone: NOWQ External Department UnsolicitedStart: 06-29-2024 End: 25-63-0062Sgdlaya encounter procedureDaviyaron Escalera DO Work Phone: [facility]-Lab [place] Work Phone: Start: 06-29-2024 End: 06-11-1226dhfhstpzjnGhxjj Girnina DO Work Phone: [facility] Work Phone: Start: 06-14-2024 End: 25-92-9966dniuwrljcuNNMGIPXQ E BRISANot AvailableStart: 06-06-2024 End: 07-43-1397Iwialcb encounter procedureDaleón Madisonnina DO Work Phone: [facility]-MRI Main [place] Work Phone: Start: 06-06-2024 End: 57-99-4996ipvgaiqzirMsyyu Girnina DO Work Phone: [facility] Work Phone: Start: 05-09-2024 End: 72-14-7954Zfmpzmtoyo hospital visit by Edgardo Pinedo Stress Room 1 [facility] SouthComment on above:Chest pain, unspecified typeStart: 05-09-2024 End: 26-86-9191eorhraaunsPXWVZH M [facility] Trumbulltart: 05-07-2024 End: 47-68-8338ztreqsxwudTxbuuhcrrAshtabula County Medical Center Work Phone: Start: 05-07-2024 End: 76-14-2753Tfbvrly encounter procedurePamella Physician Group-[facility] [place] Work Phone: Start: 04-18-2024 End: 85-48-1514sbhwdjtpgaQzyeqmlvxAshtabula County Medical Center Work Phone: Start: 04-18-2024 End: 68-33-9236Ypihujl encounter procedureFormerly [facility] [place] Work Phone: Start: 04-13-2024 End: 94-36-3279pdabhceuulXSRQGLK N AUSTINNot AvailableStart: 04-13-2024 End: 54-60-1997Imnszt outpatient visit 15 minutesLincharli Josue LINE CREW SUPERVISOR Work Phone: noms SWS UCComment on above:Other headache syndrome (Primary Dx); Cough, unspecified typeStart: 31-19-0898Jct-patient / Non-visitFormerly [facility] GroupEver[facility] Work Phone: Start: 04-05-2024 End: 65-18-9075rawgsxibgnRwsecczswCleveland Clinic Work Phone: Start: 04-05-2024 End: 86-54-9934Zledlxq encounter procedureFormerly [facility] GroupHUDS[facility] Rajiv Work Phone: Start: 02-24-2024 End: 18-59-2569Cphjhu flowsBroward Health [facility] PA Work Phone: noms SWS DERMStart: 02-24-2024 End: 49-08-3245Hzkbix [facility] PA Work Phone: noms SWS DERMStart: 02-24-2024 End: 42-59-4418Niuwhi outpatient new 30 minutesRylee [facility] PA Work Phone: noms SWS DERMComment on above:Melanocytic nevus of face, other location (Primary Dx); Melanocytic nevus of trunk; Melanocytic nevus of upper extremity, unspecified laterality; Melanocytic nevus of lower extremity, unspecified laterality; Lentigo simplex; Dermatofibroma; Neoplasm of skinStart: 02-24-2024 End: 93-04-9740ewhnkdvxjzQYPZM NORTHEIMNot AvailableStart: 02-04-2024 End: 77-85-4220Erpwjmmlc encounterLincharli Josue LINE CREW SUPERVISOR Work Phone: noms [facility] FMStart: 02-02-2024 End: 76-37-3934wwmdwofzgmDZVGLRJ N AUSTINNot AvailableStart: 02-02-2024 End: 61-64-6205Rtoljg outpatient visit 15 minutesInga Josue LINE CREW SUPERVISOR Work Phone: noms [facility] UCComment on above:Viral upper respiratory illness (Primary Dx); Cough, unspecified typeStart: 12-30-2023 End: 89-03-9994Jxginz outpatient visit 15 minutesAriel Calderon MD Work Phone: uh [facility] BaptistlandsComment on above:Neurocardiogenic pre-syncope; Hypotension, unspecified hypotension type; BMI 32.0-32.9,adult; Never smoked tobaccoStart: 11-30-2023 End: 20-53-2857Dbhuik outpatient visit 25 minutesKattanisha E Rinkes DO Work Phone: noms [facility] OBComment on above:Menorrhagia with regular cycle; Pelvic pain in female; Breast pain, leftStart: 10-28-2023 End: 92-27-0156cbyreraifaXD Bakari Escalera Work Phone: [facility] Work Phone: Start: 10-28-2023 End: 01-45-6466Gtbgprx encounter procedureDO Bakari Escalera Work Phone: [facility]-Lab [place] Work Phone: Start: 10-20-2023 End: 31-32-3794Itrewtb encounter statusBridgereen Pat Rinkes DO Work Phone: [facility] Work Phone: start: 10-20-2023 End: 19-75-3017Fhqlaobg preventive med est patient 18-39 yrsKathleen E Rinkes DO Work Phone: noms [facility] OBComment on above:Encounter for gynecological examination without abnormal finding (Primary Dx); Screening for malignant neoplasm of cervix; Dysuria; Menorrhagia with regular cycle; Pelvic pain in femaleStart: 10-20-2023 End: 93-06-2526Uotzvb flowsheetKathleen E Rinkes DO Work Phone: noMS [facility] OBStart: 10-20-2023 End: 76-71-8216Sargzi flowsheetKathleen E Rinkes DO Work Phone: noMS [facility] OBStart: 07-06-2023 End: 67-20-4810Yiebsd outpatient visit 15 minutesMarvin Haque MANAGER TECHNICAL SUPPORT-ALL SOURCE ANALYST Work Phone: [facility] NorthComment on above:Anxiety and depressionStart: 05-04-2023 End: 29-61-0410Qvuidf outpatient visit 15 minutesMarvin Haque MANAGER TECHNICAL SUPPORT-ALL SOURCE ANALYST Work Phone: [facility] NorthComment on above:ADEN (generalized anxiety disorder); Anxiety and depressionStart: 03-17-2023 End: 45-12-1651cpnsgobijnDoqvk Girvin Other [place] [employer] Other Start: 39-78-0129Bghkyssqi encounterDaleón EscaleraEverett Hospital BellevueStart: 02-08-2023 End: 61-10-8449qnoebvwwtyOW David Girvin Work Phone: [facility] Work Phone: Start: 02-08-2023 End: 09-57-7271Qjsqpey encounter procedureDO Bakari Escalera Work Phone: [facility]-MRI Main [place] Work Phone: Start: 02-01-2023 End: 84-62-1440qohkyyeprzDL Bakari Escalera Work Phone: [facility] Work Phone: Start: 02-01-2023 End: 13-19-5861Usplfjf encounter procedureDO Bakari Escalera Work Phone: [facility]-MRI Main [place] Work Phone: Start: 01-19-2023 End: 28-27-7923bljrmfimfjVJWWWPYPremier Health Atrium Medical Centertart: 01-19-2023 End: 37-71-6296Cremyc outpatient visit 10 minutesMarvin Haque MANAGER TECHNICAL SUPPORT-ALL SOURCE ANALYST Work Phone: uh [facility] HospitalComment on above:Anxiety and depressionStart: 12-27-2022 End: 02-47-4261fwwfxriajiCudvf Girvin Other [facility] [employer] Other Start: 98-70-6700Nihusvycb by computer Valentino Craft [facility] BellevSanta Fe Indian Hospitaltart: 12-14-2022 End: 77-70-6371Nsrxpf outpatient visit 15 minutesMarvin Haque MANAGER TECHNICAL SUPPORT-ALL SOURCE ANALYST Work Phone: uh [facility] HospitalComment on above: Moderate episode of recurrent major depressive disorder (CMS/HCC); ADEN (generalized anxiety disorder)Start: 12-14-2022 End: 84-00-5499yjytwpsipoVCPOWFBPremier Health Atrium Medical Centertart: 11-19-2022 End: 72-57-0679hsydtgpcveTwosxf Riley Other [facility] [employer] Other Start: 76-51-1255Syyhzhfny encounterJotahir Woods Referral CoordinatorStart: 98-18-8459Qkvjvp outpatient visit 25 minutesBakari Escalera Work Phone: [phone]-Ejwyrxdefp-[place] 1200 DO Work Phone: Start: 10-05-2022 End: 77-01-4339tdmosfbezoGW David Girvin Work Phone: [facility] Work Phone: Start: 10-05-2022 End: 65-09-1219Ygvanzj encounter procedureDO Bakari Escalera Work Phone: [facility]-Lab [place] Work Phone: Start: 09-29-2022 End: 50-66-1375jncdydsofoBjpbr Girvin Other [facility] [employer] Other Start: 85-88-9776Tebfgfjqt for general adult medical examination without abnormal findingsBakari Craft [facility] [place] Start: 17-79-3494Jtaeesvb preventive med est patient 18-39 yrsDaviyaron EscaleraTUCSON HEART H[facility]PITAL Family Medicine BellevueStart: 97-65-7743Wi RenewalDaleón Escalera Work Phone: [phone]-Gzapccfebe-[place] 1200 DO Work Phone: Start: 28-76-6062Mbjaxe outpatient visit 10 minutes Bakari Escalera Work Phone: [phone]-Vddzy [facility] 600 DO Work Phone: Start: 82-46-3445Ihwaxi outpatient visit 15 minutes Bakari Escalera Work Phone: [phone]) [phone]-Pvrymceqvj-[place] 1200 DO Work Phone: Start: 06-22-2022 End: 72-62-1725dkyhngjkevOG KACY PRYORFacility:Q3Hmibc: 07-93-8849Zuzqjg outpatient visit 15 minutesBakari Escalera Work Phone: [phone]) [phone]-Cxywkngpjl-[place] 1200 DO Work Phone: Start: 24-40-4961SGYDZGjxmg C Girvin Work Phone: [phone]) [phone]-Pqsgmpzsmk-[place] 1200 DO Work Phone: Start: 15-74-6929Ioygxm outpatient visit 15 minutes Bakari Escalera Work Phone: [phone]) [phone]-Bianqdehqc-[place] 1200 DO Work Phone: Start: 01-27-2022 End: 82-88-6721nxkfcankyyRvdogo Dymond Other [facility] [employer] Other Start: 53-12-4573Pqhywx outpatient visit 15 minutes Mayuri Mark [facility] ClydeStart: 63-84-3835Wwcoxz outpatient visit 25 minutesDaleón Escalera Work Phone: [phone]-YzudsdjjdzFaulkton Area Medical Center 1200 DO Work Phone: Start: 01-04-2022 End: 12-59-2330eldfvyuawkDqnxd Girvin Other [place] [employer] Other Start: 94-98-4466Hiyydbbdd encounterDavid Luana [facility] BellevueStart: 12-21-2021 End: 00-51-3908kyxbmlfienXdauf Girvin Other [facility] [employer] Other Start: 66-24-2383Ijhjcunip encounterDaviyaron Craft [facility] BellueStart: 09-25-2021 End: 44-46-0455Kaezato encounter procedureDO Bakari Escalera Work Phone: [facility]-Lab [place]Start: 09-18-2021 End: 67-26-3529gzjypcxxtxZconn Girvin Other [facility] [employer] Other Start: 95-26-9744Ridojliej encounterDaleón Craft [facility] BellevueStart: 99-60-3789poxwjsutcoUgqpuh Community HealthimTerracilmetrohealth main [facility]: Start: 29-13-3427GLBDQHqqrh C Girvin Work Phone: [phone]-Fqnau [facility] 250 DO Work Phone: Start: 66-63-4707Xrethp outpatient visit 25 minutes Bakari Escalera Work Phone: [phone]-Sqvvtoujnw-[place] 201B DO Work Phone: Start: 07-23-2021 End: 61-24-1482fdgqqmrrkjKJKDCB RODRIGUEZ .Facility:C1Uzbxc: 96-23-8809Zvorhn outpatient visit 25 minutesDavid C SyoouiMV-Nnqfhtuuuy-Rdwtk [place] 201B DO Work Phone: Start: 22-45-0147Ahwpvl outpatient visit 15 minutes Bakari EscaleraOsyzofZL-Dvyaaprnew-Fygow [place] [address] DO Work Phone: Start: 41-38-3476Vdhjao outpatient visit 15 minutes Bakari EscaleraPdxpsmUX-Lakwnccudt-Eygnb [place] [address] DO Work Phone: Start: 51-59-8864Stanui outpatient visit 15 minutes Bakari EscaleraIduspcIE-Xypfsicijs-Tyqbk [place] [address] DO Work Phone: Start: 39-05-5589Xlwuiw outpatient visit 25 minutes Bakari EscaleraJhycrcFI-Hvqaocfhdc-Ihxvh [place] [address] DO Work Phone: Start: 21-61-0568Hvxpcyo encounter procedureDavid William EscaleraOpalvwJK-XEXVO-Mmluidi 206A IVF Work Phone: Start: 39-35-8996TRXIWLYPIF, Provider: OBGYIrvin IVF RDOR CASSIDY 1,MG OBGYN, Status: Pen, Time: 10:30 AMDavid William EscaleraKmzbsiCE-Zsilehnnin-Pzdjm [place] [address] DO Work Phone: Start: 09-33-1407Prepoa outpatient visit 15 minutes Bakari EscaleraPypnbvNH-Spqztgklgi-Nwidq [place] [address] DO Work Phone: Start: 60-65-8609QVLJUUECVT, Provider: Marvin Haque, Status: Pen, Time: 3:30 PMDavid C EquapkXJ-HAIYC-Obsxkf 310 IVF Work Phone: Start: 55-46-2711Oexlhhuur encounterDavid C Girvin WY-OBBML-Bgsbgk 310 IVF Work Phone: Start: 71-46-4734YQZKEIyxpj C LwuvwvZA-REHKG-Kgllhh 310 IVF Work Phone: Start: 75-14-4989Zaubvu outpatient visit 15 minutes Bakari EscaleraKiwmbaNM-Gvqbfaqjyr-Ebeze [place] [address]B DO Work Phone: [phone]: 85-70-1942UNPADQAU, Provider: OBGYN STEW STRICKLANDMS CASSIDY Jiménez,MG OBGYN, Status: Pen, Time: 8:00 AMDavid C XcxxnfWQ-UQPMN-Anrjil 310 IVF Work Phone: [phone]: 45-97-8943Xdyjx UpdateDavid C Girvin PW-NVMTF-Bjrzlq 310 IVF Work Phone: Start: 10-73-0057Jykuaxc encounter procedureDavid C DqhnxiEG-RPGMI-Kwlqgd 310 IVF Work Phone: [phone]: 17-37-4769Oxkbszk encounter procedureDavid C CsortiUZ-VTLXW-Kctljw 310 IVF Work Phone: [phone]: 87-98-8082Hnetaru encounter procedureDavid C QywvnoAG-Ziaznwifhj-Ucvma [place] [address] DO Work Phone: [phone]: 31-12-6056APTIACxfuu C JpxmrkNA-BCLTK-Qxjkwx 310 IVF Work Phone: Start: 46-69-7309Pbesnrl encounter procedureDavid C FlzolnPZ-DOSNJ-Rpwwuk 310 IVF Work Phone: [phone]: 12-48-1069Luqgsjw encounter procedureKelsi Piero JDGK-PCLTK-IPILN-[place] 310 IVF Work Phone: Start: 60-58-3067Pfjxcim encounter procedureKelsi Harry LGUE-QRHRT-HCGGI-[place] 310 IVF Work Phone: [phone]: 64-96-7124Irixoke encounter procedureNelsonaruna Piero IVQA-NMDAP-GWTDK-[place] 310 IVF Work Phone: Start: 21-87-9691Rxszwnt encounter procedureNelsonaruna Piero IBYB-WJPUB-DIPCN-[place] 310 IVF Work Phone: [phone]: 90-69-5149Ntvypag encounter procedureKelsi Harry APRN-CNPMG-OBGYN-[place] 310 IVF Work Phone: [phone]: 59-50-3249Pvzhwcl encounter procedureKelsi Harry APRN-CNPMG-OBGYN-[place] 310 IVF Work Phone: [phone]: 37-43-5425Qtvzfpd encounter procedureKelsi YangQnvusNM-QAPKT-Fjgfuu 310 IVF Work Phone: [phone]: 48-32-5516Iivfvqd encounter procedureKelsi YangEybsnIF-BWSUT-Qivlsn 310 IVF Work Phone: [phone]: 49-57-1817Plvfzoy encounter procedureKelsi YangJmqpnYC-TKNAC-Zarnap 310 IVF Work Phone: [phone]: 01-57-2140Qkkhvtq encounter procedureKelsi YangVtxwuGG-PKDSP-Ovxnwh 310 IVF Work Phone: [phone]: 65-10-8187Btxlppg encounter procedureKelsi YangUodsvEB-QDGPB-Ppilyv 310 IVF Work Phone: [phone]: 86-90-9587Bmuualf encounter procedureKelsi YangUslvuTO-VYQAI-Kducsk 310 IVF Work Phone: [phone]: 32-81-9617Wvfwkay encounter procedureKelsi YangWplybHS-ZTFWL-Bdrdjm 310 IVF Work Phone: Procedures DateProcedureProcedure DetailPerforming ClinicianStart: 74-32-8158Lbhlmlsp blood count with white cell differential, automatedCorey Jackie DO Work Phone: Start: 94-75-6076Dusktftwrlluiaxltammtw measurement Bakari Escalera DO Work Phone: Comment on above:This test was developed and its performance characteristicsdetermined by [employer]. It has not been cleared orapproved by the Food and Drug Administration.Performed at: [address] [id number] Director: Merlyn Sanders MD, Phone: [phone]: 76-10-2005Ynrxmmwpxknazvhtdacaep sulfate levelDaleón Escalera DO Work Phone: Start: 61-17-4615Iexmdzrnzw glycosylated e8uCzovc Jackie DO Work Phone: Start: 81-88-4419Pyimdeqkqgoo chorionic quantitative Ruddy Jackie DO Work Phone: Start: 81-17-7626Scdgqmpnrqrq chorionic quantitative Ruddy Jackie DO Work Phone: Start: 52-94-1105Lzcie dip stick/tablet rgnt non-auto w/o micrscpCorey Jackie DO Work Phone: Start: 52-02-0183Teycalgriwmg chorionic quantitative Riddhi E Rinkes DO Work Phone: start: 30-91-7589Nxbdl cultureDavid Girvin DO Work Phone: Start: 73-53-5899Pzttwnkzpsnk chorionic quantitative Riddhi E Rinkes DO Work Phone: start: 41-71-7842Mralixptmuty chorionic quantitative Riddhi E Rinkes DO Work Phone: start: 44-38-0743ECC of headDavid Nilay DO Work Phone: Start: 31-79-2789Mjxlhvrhub agent dna/rna influenza 1st 2 typesAnthchristiano Turner Rinmiguelangel DO Work Phone: Start: 08-04-0908Kzkwl Strep (POC)Start: 02-02-2024 PNEUMONIA (HTRX)Inga Josue LINE CREW SUPERVISOR Work Phone: Start: 28-46-5274ILBBUV COVID-19/FLUAnthony G Rinmiguelangel DO Work Phone: Start: 02-02-2024H/O: sectionS/P Inga Josue [employer] CREW SUPERVISOR Work Phone: Start: 12-59-2940Xnjez dip stick/tablet rgnt non-auto w/o micrscpKathleen E Rinkes DO Work Phone: start: 35-59-3136NNU of cervical spine with contrastDO Bakari Nilay Work Phone: Start: 02-48-1950YAV of headDO Bakari Nilay Work Phone: Start: 91-61-3132BZ Ultrasound, limited pelvic, follicle monitoringKelsi HarryStart: 34-86-4348Qbrkd of estradiolKelsi Harry Start: 42-06-1135BP Ultrasound, limited pelvic, follicle monitoringKelsi Harry sectionDavid C Nilay Work Phone: H/O: sectionS/P C-sectionDO Bakari Nilay Work Phone: Myringotomy and insertion of T tubeDavid William Escalera Work Phone: Tonsillectomy and adenoidectomyDavid William Nilay Work Phone: Total colonoscopyDavid William Griceldanina Work Phone: Plan of Treatment DateCare ActivityDetailAuthorStart: 78-90-6815Tuendg Vaccines (1 of 2)Zoster Vaccines (1 of 2)[facility]: 74-25-8464GNaR/Tdap/Td Vaccines (2 - Td or Tdap)DTaP/Tdap/Td Vaccines (2 - Td or Tdap)[facility]: 01-01-2026 End: 48-11-9371Cqayxrf encounter iqqxgiorf68/11/2026 3:40 PM EST Office Visit [address] [place] [address] Ariel Calderon MD [address] [facility], [address] [place] [address] [facility]: [facility] End: 28-37-5251Sbtupdl encounter procedureNOMS SWS DERMStart: 02-12-2025 End: 35-82-5968Gkdiwaw encounter procedureNOMS BCP OBStart: 01-02-2025 End: 15-32-9181Xkrzzbt encounter bgdcsedwm01/12/2025 3:50 PM EST Office Visit [address] [place] [address] Ariel Calderon MD [facility] [facility] [address] [place] [address] [facility]: 12[facility]25[facility]2024 End: 45-22-0825Wdkctfkzovkoo hormone (AMH)Antimullerian hormone (AMH) Lab Routine Abnormal uterine bleeding (AUB) Expected: 12/25/2024 (Approximate), Expires: 12/25/2025[facility] HealthcareComment on above:Expected: 12/25/2024 (Approximate), Expires: 12/25/2025Start: 12-25-2024 End: 12-94-5770UATXELDG Lab Routine PCOS (polycystic ovarian syndrome) Expected: 12/25/2024 (Approximate), Expires: 12/25/2025NO[facility] HealthcareComment on above: Expected: 12/25/2024 (Approximate), Expires: 12/25/2025Start: 12-25-2024 End: 67-97-4875ZI Breast - leftLeft breast US complete Imaging Routine Breast pain, left Breast tenderness in female Expected: 12/25/2024, Expires: 02/24/2026 [facility] Work Phone: comment on above:Expected: 12/25/2024, Expires: 02/24/2026Start: 12-25-2024 End: 66-93-9566KZ PelvisUS Pelvis w/ TV Imaging Routine PCOS (polycystic ovarian syndrome) Expected: 12/25/2024, Expires: 12/25/2025[facility] HealthcareComment on above:Expected: 12/25/2024, Expires: 12/25/2025Start: 52-78-8550Cggfxht [Units/volume] in Serum or PlasmaUniversity Hospitals TriPoint Medical Centertart: 13-19-0299KcwtuefhyUniversity Hospitals TriPoint Medical Centertart: 71-30-4237Pobsifs referral [facility] Work Phone: Start: 10-31-2024 End: 50-24-5810Xynukcm encounter mmusfriwv18/10/2025 3:45 PM EDT Office Visit [facility] [address] [place] [address] Riddhi Villar, DO [address] [place] [address] [facility] OBStart: 81-74-0479QRUEO-19 Vaccine ( season)COVID-19 Vaccine ( season)[facility] Start: 47-76-8477Kxpebg Adult PhysicalYearly Adult PhysicalUnMemorial Health System Selby General HospitalStart: 88-29-0041Riugdpssq vaccinationInfluenza Vaccine (#1) [facility]Start: 00-63-5094Jbwdqyzpikvwnwpilxdenq measurementUniversity Hospitals TriPoint Medical Centertart: 09-11-2024 Dehydroepiandrosterone sulfate levelUniversity Hospitals TriPoint Medical Centertart: 83-03-3474DyhfwimvrUniversity Hospitals TriPoint Medical Centertart: 08-14-2024 End: 80-97-3611lppibwnjqc99/24/2025 1:00 PM EDT Initial [facility] [address] [place] [phone] Riddhi Villar, DO [address] [place] [address] [facility] OBStart: 08-09-2024 End: 89-49-8470Wulhthgbhujy / ancillary services oimvliewqt58/19/2025 8:30 AM EDT Ancillary Procedure [facility] [address] [place] [address] BQFL SWS OBStart: 08-07-2024 End: 36-34-6657Hzowxxsvwgbu / ancillary services csyrfprdur66/17/2025 12:30 PM EDT Ancillary Procedure [facility] [place] [address] [place] [address] [facility] IMAGING SANDUSKYStart: 07-17-2024 End: 67-66-7861Wognrlvconhtl hormone (AMH)Antimullerian hormone (AMH) Lab Routine Hormone imbalance Expected: 07/17/2024 (Approximate), Expires: 07/17/2025NO[facility] HealthcareComment on above:Expected: 07/17/2024 (Approximate), Expires: 07/17/2025Start: 07-17-2024 End: 39-57-5867UZRKLCOA Lab Routine PCOS (polycystic ovarian syndrome) Expected: 07/17/2024 (Approximate), Expires: 07/17/2025[facility] HealthcareComment on above: Expected: 07/17/2024 (Approximate), Expires: 07/17/2025Start: 07-06-2024 End: 93-13-2771Unrulvxe identified in Urine by CultureUrine culture Microbiology Routine care, subsequent in first trimester Expected: 07/06/2024, Expires: 07/06/2025 Healthcare Work Phone: comment on above:Expected: 07/06/2024, Expires: 07/06/2025Start: 07-06-2024 End: 81-11-3758Tosid type and Indirect antibody screen panel - BloodType and screen Lab Routine care, subsequent in first trimester Expected: 07/06/2024, Expires: 07/06/2025[facility] HealthcareComment on above: Expected: 07/06/2024, Expires: 07/06/2025Start: 07-06-2024 End: 51-16-2017PRJ W Auto Differential panel - BloodCBC and differential Lab Routine care, subsequent in first trimester Expected: , Expires: 07/06/2025[facility] HealthcareComment on above:Expected: 07/06/2024, Expires: 07/06/2025Start: 07-06-2024 End: 42-67-0615UYKH SCREEN 17 W/CONF, URDRUG SCREEN 17 W/CONF, UR Lab Routine Encounter for drug screening Expected: 07/06/2024, Expires: 07/06/2025[facility] HealthcareComment on above:Expected: 07/06/2024, Expires: 07/06/2025Start: 07-06-2024 End: 34-89-9151iML, quantitative, pregnancyhCG, quantitative, Lab Routine care, subsequent in first trimester Expected: 07/06/2024 (Approximate), Expires: 07/06/2025[facility] HealthcareComment on above: Expected: 07/06/2024 (Approximate), Expires: 07/06/2025Start: 07-06-2024 End: 33-64-5404Xmjrhmjld B virus surface Ag [Presence] in Serum or Plasma by ImmunoassayHepatitis B surface antigen Lab Routine care, subsequent in first trimester Expected: 07/06/2024, Expires: 07/06/2025[facility] HealthcareComment on above:Expected: 07/06/2024, Expires: 07/06/2025Start: 07-06-2024 End: 14-91-6894Wpezyqytf C virus Ab [Presence] in Serum or Plasma by Immunoassay Hepatitis C antibody Lab Routine care, subsequent in first trimester Expected: 07/06/2024, Expires: 07/06/2025[facility] CenterComment on above:Expected: 07/06/2024, Expires: 07/06/2025Start: 07-06-2024 End: 23-16-9951WYR-2 antigen assayHIV-2 antigen Lab Routine care, subsequent in first trimester Expected: 07/06/2024, Expires: 07/06/2025[facility] CenterComment on above:Expected: 07/06/2024, Expires: 07/06/2025Start: 07-06-2024 End: 95-50-8830Mll (dx) w/refl titer and confirmatory testingRpr (dx) w/refl titer and confirmatory testing Lab Routine care, subsequent in first trimester Expected: 07/06/2024, Expires: 07/06/2025[facility] Comment on above:Expected: 07/06/2024, Expires: 07/06/2025Start: 07-06-2024 End: 09-59-3693Qadihgs antibody, IgGRubella antibody, IgG Lab Routine care, subsequent in first trimester Expected: 07/06/2024, Expires: 07/06/2025[facility] HealthcareComment on above:Expected: 07/06/2024, Expires: 07/06/2025Start: 07-06-2024 End: 18-08-7428Gvuiukmtco complete panel - UrineUrinalysis with microscopic Lab Routine care, subsequent in first trimester Expected: 07/06/2024, Expires: 07/06/2025[facility] HealthcareComment on above:Expected: 07/06/2024, Expires: 07/06/2025Start: 02-24-2024 End: 40-36-5272Xgwtjjz encounter /03/2025 1:00 PM EST Office Visit [facility] [address] [place] [phone] Anjum Sanchez PA [address] [place] [address] ArrivedNOADVENTIST HEALTH BAKERSFIELD - [facility]AKERSFIELD DERMComment on above:ArrivedStart: 11-30-2023 End: 20-40-3318Jimawaq encounter awszurgjq57/09/2024 3:30 PM EDT Office Visit [facility] [address] [place] [address] Riddhi Villar DO [address] [place] [address] [facility] SWS OBStart: 11-30-2023 End: 21-15-3671Gbzghzz encounter itudhojka77/09/2024 9:20 AM EDT Office Visit [facility] [address] [place] [address] Ariel Calderon MD [address] [place] [address] [facility]: 11-11-2023 End: 40-42-1149Hxgbdybvlszj / ancillary services bgmseboimi83/20/2024 8:00 AM EDT Ancillary Procedure [facility] [address] [place] [address] [facility] OBStart: 32-29-0305WKWOV-19 Vaccine ( season)COVID-19 Vaccine ( season)[facility] Start: 10-14-2583Wespsbeqc vaccinationFort Hamilton HospitalStart: 07-06-2023 End: 61-45-4613Fjcvqkqdmjvc consultation with pzhhjya4607/06/2023 3:30 PM EDT Telemedicine [place] [address] [place] [address] Marvin Haque, MANAGER TECHNICAL SUPPORT-ALL SOURCE ANALYST [address] [place] [address] [facility]art: 05-26-2023 End: 71-02-4188Jamddpn encounter dlnewwztj06/04/2024 8:40 AM EDT Office Visit [address] [address] Ariel Calderon MD [address] [facility], [facility] [address] [place] [address] [facility] Harmarvilleart: 42-88-6366TOY, Provider: Ariel Calderon, Status: Pen, Time: 11:50 AMFUV, Provider: Ariel Calderon, Status: Pen, Time: 11:50 [facility] 600 DO Work Phone: Start: 03-03-2023 End: 35-79-7050Rzqmkmw encounter ayuhdqsga25/11/2024 11:50 AM EST Office Visit [address] [address] Ariel Calderon MD [address] [facility] 2, [facility] [address] [place], [place] [address] [facility]: 01-12-2023 End: 10-43-6449Jwnjwgpvbhaq consultation with wvdbdhb9601/12/2023 3:30 PM EST Telemedicine [facility] [address] [place], [place] [address] Marvin Haque, MANAGER TECHNICAL SUPPORT-ALL SOURCE ANALYST [address] [address] [place] [address] [facility] WestpointStart: 05-10-9548Twilcxuuo vaccinationInfluenza Vaccine (#1) [facility]Start: 71-25-5817UCQLRQBLPF, Provider: Marvin Haque, Status: Pen, Time: 8:00 AMVIRFUVHOME, Provider: Marvin Haque, Status: Pen, Time: 8:00 LJMD-Geusxbktpo-Cyoovpe 1200 DO Work Phone: Start: 10-92-2165VJUWPJHFUM, Provider: Marvin Haque, Status: Pen, Time: 9:00 AMVIRFUVHOME, Provider: Marvin Haque, Status: Pen, Time: 9:00 AMMP-[facility] 600 DO Work Phone: Start: 66-36-3431TCG, Provider: Ariel Calderon, Status: Pen, Time: 10:00 AMFUV, Provider: Ariel Calderon, Status: Pen, Time: 10:00 AM-[facility]-[place] 250 DO Work Phone: Start: 58-33-4079SGWXEKJVVH, Provider: Marvin Haque, Status: Pen, Time: 2:30 PMVIRFUVHOME, Provider: Marvin Haque, Status: Pen, Time: 2:30 MDFL-Oaedrhixdv-Irmysvi 1200 DO Work Phone: Start: 16-27-5549VIUZABYCRJ, Provider: Marvin Haque, Status: Pen, Time: 10:00 AMVIRFUVHOME, Provider: Marvin Haque, Status: Pen, Time: 10:00 AMMP-[facility]-[place] 250 DO Work Phone: Start: 40-19-1922XBC, Provider: Ariel Calderon, Status: Pen, Time: 9:30 AMFUV, Provider: Ariel Calderon, Status: Pen, Time: 9:30 RCDJ-Spcbkhyuty-Afmjh [place] [address] DO Work Phone: Start: 23-00-3977KMASEVGLLE, Provider: Marvin Haque, Status: Pen, Time: 3:30 PMVIRFUVHOME, Provider: Marvin Haque, Status: Pen, Time: 3:30 WXZP-TMNDD-Fnghpwr 206A IVF Work Phone: Start: 83-44-6344MURFOBWAOD, Provider: OBGYN IVF RDMS CASSIDY 1,MG OBGYN, Status: Pen, Time: 9:00 AMULTRASOUND, Provider: OBGYN IVF RDMS CASSIDY 1,MG OBGYN, Status: Pen, Time: 9:00 STVJ-VWVFO-Atypaj 310 IVF Work Phone: Start: 59-55-1969KYPOYBNTSQ, Provider: Marvin Haque, Status: Pen, Time: 3:30 PMVIRFUVHOME, Provider: Marvin Haque, Status: Pen, Time: 3:30 RALQ-PUNCZ-Znxoeh 310 IVF Work Phone: Start: 65-50-6388GQWZOGXGGB, Provider: Marvin Haque, Status: Pen, Time: 2:30 PMVIRFUVHOME, Provider: Marvin Haque, Status: Pen, Time: 2:30 AIVT-Lribizythf-Xhaxh [address] DO Work Phone: Start: 72-26-5617JEYUZHA, Provider: IVF NURSE JUSTIN BENJAMIN, Status: Pen, Time: 9:30 AMRNVISIT, Provider: IVF NURSE JUSTIN BENJAMIN, Status: Pen, Time: 9:30 VNJW-NUANF-Egwpjk 310 IVF Work Phone: Start: 85-54-1544GZGURZT, Provider: IVF NURSE JUSTIN BENJAMIN, Status: Pen, Time: 8:00 AMRNVISIT, Provider: IVF NURSE JUSTIN BENJAMIN, Status: Pen, Time: 8:00 SALA-XTKPC-Modfyd 310 IVF Work Phone: Start: 54-84-2626FJWBOEZDMO, Provider: Marvin Haque, Status: Pen, Time: 10:30 AMVIRNPVHOME, Provider: Marvin Haque, Status: Pen, Time: 10:30 MJBJ-ILZRO-Nsgqhw 310 IVF Work Phone: Start: 90-01-7287Aiqwk of progesteroneProgesterone, ElaqkBZ-BHTQV-Nkjegv 310 IVF Work Phone: Start: hydroxy includes fractions if performedVitamin D 57-IhkrzjcDW-FTDXG-Risman 310 IVF Work Phone: Start: 52-60-0419Mnzj Mullerian HormoneAnti Mullerian PrcnawxXC-UWCDZ-Mrnzmz 310 IVF Work Phone: Start: 82-05-3992Lapkftaz hiv-1HIV 1/2 ANTIGEN/ANTIBODY SCREEN WITH REFLEX TO ZXYQKRFEDCJUEE-CQJYC-Mipuev 310 IVF Work Phone: Start: 99-99-7851Exnanqro rubellaRubella IgG Antibody DY-LUMDE-Aiaajd 310 IVF Work Phone: Start: 78-99-0490Rppufuet varicella-zosterVaricella Zoster IgG BztvrlohVY-BIBBP-Rwqdxs 310 IVF Work Phone: Start: 99-62-8624Yordg of estradiolEstradiol, Serum CA-ELIKV-Zhyskf 310 IVF Work Phone: Start: 57-24-2947Lsrvf of ferritinFerritin, Serum HU-VOHWU-Cjsncb 310 IVF Work Phone: Start: 55-58-5148Nlnet of ironIron, Serum OO-MMLJN-Cfaqnn 310 IVF Work Phone: Start: 77-42-6065Kcpbk of progesteroneProgesterone, UrkhaKG-TBSAO-Etzrcy 310 IVF Work Phone: Start: 45-88-0094Cjeujxzbsexfox vitamin b-12Vitamin B12, WzxqjHW-YSFJQ-Ibtezt 310 IVF Work Phone: Start: 96-36-1348Ajuuwudkrkmm follicle stimulating hormoneFollicle Stimulating Hormone, SrekqOC-QJADJ-Mqrixe 310 IVF Work Phone: Start: 61-78-8449Mmdhwcoujcwj luteinizing hormone Luteinizing Hormone, FmoxpXV-AGUCY-Qxhpoy 310 IVF Work Phone: Start: 15-10-0708Jfs C screen high risk/otherHepatitis C Antibody MevuDB-HOFFF-Vcwzrn 310 IVF Work Phone: Start: 94-78-6050Hpgv ia hepatitis b surface antigen Hepatitis B Surface BnqtranBH-HSTGS-Wuaepi 310 IVF Work Phone: Start: 20-32-2397Zkxrg chlamydia trachomatis amplified probe tqGC + Chlamydia By Amplified DouqnpdpiGT-SVZWP-Rulras 310 IVF Work Phone: Start: 27-75-8919OOZTMIJU SCREENING WITH REFLEX SYPHILIS SCREENING WITH NIBKGGMC-GONAC-Vrsalj 310 IVF Work Phone: Start: 96-94-1691VHZ WITH REFLEX TO FREE T4 IF ABNORMALTSH WITH REFLEX TO FREE T4 IF QSJHWDSFBA-KDUOO-Aqupbj 310 IVF Work Phone: Start: 90-00-8152Mluz and ScreenType and Screen OB-XWMCD-Jevjan 310 IVF Work Phone: Start: 79-46-0330IIE Vaccines (1 - 3-dose standard series)HPV Vaccines (1 - 3-dose standard series)[facility]: 13-77-1631Inhhxjwne for malignant neoplasm of cervixUnMercy Health Anderson Hospital: 68-93-8318Rgfxfhiyd B Vaccines (1 of 3 - 19+ 3-dose series)Hepatitis B Vaccines (1 of 3 - 19+ 3-dose series)[facility]: 38-79-9677Vqlbjljc mellitus screeningDiabetes Screening [facility]: 22-24-2490Hebtevcnq C screeningHepatitis C ScreeningUnMercy Health Anderson Hospital: 43-34-8088Ieoppqias vaccinationVaricella Vaccines (1 of 2 - 13+ 2-dose series)[facility]: 98-02-4482DTBXV-19 Vaccine (#1)COVID-19 Vaccine (#1) [facility]: 06-49-6691JOK Vaccines (1 of 1 - Standard series)MMR Vaccines (1 of 1 - Standard series)[facility]: 47-50-6288Mgpdljqoe vaccinationVaricella Vaccines (1 of 2 - 2- dose childhood series)[facility]: 55-59-5636VXARZ-19 Vaccine (#1)COVID-19 Vaccine (#1)[facility]: 97-45-5418Rwpkdqjjb B Vaccines (1 of 3 - 3-dose series)Hepatitis B Vaccines (1 of 3 - 3-dose series)[facility]: 60-46-1348KCM screeningHIV ScreeningUnMercy Health Anderson Hospital: 01-19-0016Vakug panelLipid PanelUnMercy Health Anderson Hospital: 64-98-1527Tmfljz Adult PhysicalYearly Adult PhysicalUnMemorial Health System Selby General HospitalCalcitriol [Mass/volume] in Serum or PlasmaMercy Health – The Jewish Hospital End: 24-39-9712Hperjji stress study ProcedurePRESBYTERIAN [facility] Service Area Work Phone: Comment on above:Once for 1 Occurrences starting 05/09/2024 until 5CBC W Auto Differential panel - BloodCBC and differential Lab Routine PCOS (polycystic ovarian syndrome) Ordered: 07/17/2024 [facility] HealthcareComment on above:Ordered: 5CBC W Auto Differential panel - BloodCBC and differential Lab Routine PCOS (polycystic ovarian syndrome) Ordered: 12/25/2024[facility] HealthcareComment on above:Ordered: 12/25/2024 Comprehensive metabolic 2000 panel - Serum or PlasmaMercy Health – The Jewish HospitalDHEA-sulfateDHEA-sulfate Lab Routine PCOS (polycystic ovarian syndrome) Ordered: 07/17/2024[facility] HealthcareComment on above:Ordered: 07/17/2024 IOTC-geqiwfpJCWX-nfidppn Lab Routine PCOS (polycystic ovarian syndrome) Ordered: 12/25/2024[facility] HealthcareComment on above:Ordered: 12/25/2024EstradiolEstradiol Lab Routine Hormone imbalance Ordered: 07/17/2024[facility] HealthcareComment on above:Ordered: 07/17/2024EstradiolEstradiol Lab Routine 09/11/2024 9:31 AM EDT [facility] Healthcare Work Phone: Estradiol (E2) [Mass/volume] in Serum or Plasma [facility] Jewish HospitalFollicle stimulating hormoneFollicle stimulating hormone Lab Routine PCOS (polycystic ovarian syndrome) Ordered: 07/17/2024[facility] HealthcareComment on above:Ordered: 07/17/2024Follicle stimulating hormoneFollicle stimulating hormone Lab Routine PCOS (polycystic ovarian syndrome) Ordered: 12/25/2024[facility] HealthcareComment on above:Ordered: 12/25/2024Glucose measurement estimated from glycated hemoglobinMercy Health – The Jewish HospitalGlucose measurement estimated from glycated hemoglobin [facility] End: 39-77-4205cQB, quantitative, pregnancyhCG, quantitative, Lab Routine Ectopic without intrauterine , unspecified location 4 Occurrences starting 07/17/2024 until 07/17/2025[facility] Healthcare Work Phone: comment on above:4 Occurrences starting 07/17/2024 until 07/17/2025hCG, quantitative, pregnancyhCG, quantitative, Lab Routine PCOS (polycystic ovarian syndrome) Ordered: 12/25/2024[facility] Healthcare Comment on above:Ordered: 12/25/2024Hemoglobin A1c/Hemoglobin.total in Blood Hemoglobin A1c Lab Routine Hormone imbalance Ordered: 07/17/2024[facility] Healthcare Comment on above:Ordered: 07/17/2024Hemoglobin A1c/Hemoglobin.total in Blood [facility] HospitalHemoglobin A1c/Hemoglobin.total in Blood [facility] HospitalHemoglobin A1c/Hemoglobin.total in Blood Hemoglobin A1c Lab Routine Abnormal uterine bleeding (AUB) Ordered: 12/25/2024 [facility] HealthcareComment on above:Ordered: 12/25/2024Insulin [Units/volume] in Serum or [facility] CenterLuteinizing hormoneLuteinizing hormone Lab Routine PCOS (polycystic ovarian syndrome) Ordered: 07/17/2024[facility] HealthcareComment on above:Ordered: 07/17/2024Luteinizing hormoneLuteinizing hormone Lab Routine PCOS (polycystic ovarian syndrome) Ordered: 12/25/2024[facility] HealthcareComment on above:Ordered: 12/25/2024Lutropin [Units/volume] in Serum or [facility] CenterMG Breast - left DiagnosticLeft diagnostic mammogram Imaging Routine Breast pain, left Ordered: 11/30/2023[facility] Healthcare Work Phone: comment on above:Ordered: 11/30/2023MR Unspecified body [facility] SpringfieldMullerian inhibiting substance [Mass/volume] in Serum or [facility] CenterPatient referralWooster Community [facility] Work Phone: ProgesteroneProgesterone Lab Routine Hormone imbalance Ordered: 07/17/2024[facility] HealthcareComment on above:Ordered: 07/17/2024 Progesterone [Mass/volume] in Serum or [facility] SENDOUT TEST MISCELLANEOUS LABCORPSENDOUT TEST MISCELLANEOUS [facility] Lab Routine Screening for malignant neoplasm of cervix Ordered: 10/20/2023[facility] Healthcare Work Phone: comment on above:Ordered: 10/20/2023Thyrotropin [Units/volume] in Serum or PlasmaTSH Lab Routine PCOS (polycystic ovarian syndrome) Ordered: 07/17/2024[facility] HealthcareComment on above:Ordered: 07/17/2024 Thyrotropin [Units/volume] in Serum or PlasmaTSH Lab Routine 09/11/2024 9:31 AM [facility] Healthcare Work Phone: Thyrotropin [Units/volume] in Serum or PlasmaTSH Lab Routine PCOS (polycystic ovarian syndrome) Ordered: 12/25/2024[facility] Healthcare Comment on above:Ordered: 12/25/2024Thyroxine (T4) free [Mass/volume] in Serum or PlasmaT4, free Lab Routine PCOS (polycystic ovarian syndrome) Ordered: 07/17/2024[facility] HealthcareComment on above:Ordered: 07/17/2024Thyroxine (T4) free [Mass/volume] in Serum or PlasmaT4, free Lab Routine PCOS (polycystic ovarian syndrome) Ordered: 12/25/2024[facility] HealthcareComment on above:Ordered: 12/25/2024 US Breast - left limitedLeft breast US limited Imaging Routine Breast pain, left Ordered: 11/30/2023[facility] HealthcareComment on above:Ordered: 11/30/2023[facility] CampusNEGATED: Highlighted row has been ruled out!Planned Goals not wwwqmxpreySO-XKPNK-Rjkfdv 310 IVF Work Phone: Immunizations Immunization DateImmunizationNotesCare QyabcujrMshahguk90-54-2710iuxtuel toxoid, reduced diphtheria toxoid, and acellular pertussis vaccine, adsorbedDavid C FthtwiZN-Tlbwdhnzlu-Bnqvb [address] DO Work Phone: Payers DatePayer CategoryPayerPolicy [id number] [id number] Care (Private)[employer] [facility] [id number] InsuranceMED[employer]UAL Member Subscriber Plan / Payer (Effective 2021- Present) Name: Jessica Valdez Relation to Subscriber: Self Name: Jessica Valdez Payer ID: Not on file Type: Not on file Address: [facility] [address] [place], [place] [address]36.2.840.042886.1.13.693.2.7.9.097894.501263.18928-17-9831Sqxvwbv 35-48-6196Pbucclm785822978 2.0.1.028569.3.579.2.00647-19-9435Fqbukun2487790 2..1.984605.3.579.2.60595-38-6684Rofcbky8415832 2..1.421372.3.579.2.11342-03-7886Lyjhxmo30143223 2.0.1.843047.3.579.2.069588-00-6999Pdmrkmh3798168 2..1.204672.3.579.2.235084-75-6660Wzulurq94296022 2..1.850703.3.579.2.754833-11-8727Rorpbva41478617 2..1.929806.3.579.2.442014-01-3996Amazfhv8221096 2..1.951031.3.579.2.336484-87-4758Sxluckf6110700 2..1.496201.3.579.2.033771-34-3378Vejgyhg5886124 2..1.428256.3.579.2.946754-83-9600Xxlqemf8363481 2..1.041030.3.579.2.403994-64-5126Ezjnkuf6975869 2..1.087109.3.579.2.848149-95-5482Bhjffoy0199783 2..1.279432.3.579.2.006683-70-2516Bcwgkkq473919042 2..1.967752.3.579.2.694386-78-8802Cvwudfe349885894 2..1.440593.3.579.2.215609-52-4194BxkvkvzU8777134624 qz13q4n3-9z67-0row-5p6j-0e867365403839-41-4654Wlquzsx440306730984 ...754123.19[facility] [id number] 99e780r7-o074-6229-3a07-if51yfg1[id number] 96756z25-8297-7k69-p5yc-z4095mr0b352Jspqotn19509594 2..1.723744.3.579.2.387Plrmvlp22892173 2..1.900701.3.579.2.531 Ctpamej94499507 2..1.605053.3.579.2.764Zuwwhgh73228629 2..1.027345.3.579.2.616Rhsjlje28230372 2..1.836415.3.579.2.531 Wnvcihw09614527 2..1.480083.3.579.2.798Hfylqwu21047161 2..1.093873.3.579.2.616Dvzqosg76796459 2..1.790784.3.579.2.531 Hkabtxl07301987 2..1.624333.3.579.2.019Hglixur91558395 2.16.840.1.961683.3.579.2.531 Social History DateTypeDetailFacilityAssertionTobacco smoking consumption unknown (finding) YG-LBWIR-[facility] [address] [facility] Work Phone: Start: 10-20-2023 End: 23-97-6343Ytmzbkf useAlcohol ronZB-Jioeqeabva-[address] DO Work Phone: Comment on above:socially;1 cup daily;Start: 06-20-2021 End: 63-01-6416Oiuctjx smoking status NHISNever smoked tobacco (finding) [facility]art: 03-23-8484Pfj [facility]igned At [facility]art: 10-20-2023 End: 84-52-3081Wqf Assigned At [facility] Eventap Other Start: 14-76-1475Bbpedca smoking status NHISTobacco smoking consumption unknownUnMemorial Health System [facility] Work Phone: Start: 26-18-3458Cwv Assigned At BirthNot on file [facility] Work Phone: Start: 12-04-2022 End: 43-03-5145Pdqoajau to SARS-CoV-2 (event)Not sureUnMemorial Health System Selby General HospitalStart: 11-30-2023 End: 48-51-9357Sarrjrqly beverage intakeCurrent drinker of alcohol (finding)[facility] HealthcareStart: 07-01-3256Pcaetdevw70BFJY HealthcareStart: 27-24-3617Xpvgzci Comment1-2 drinks 2-4x a month in the past year, Caffeine intake: soda/pop sips on coke for nausea , coffeeNOMS HealthcareStart: 12-30-2023 End: 79-42-5446Lgwcoyn use and exposureSmokeless tobacco non-userUnMemorial Health System [facility] Work Phone: Start: 12-30-2023 End: 73-65-7060Iwajdaagw beverage intakeLifetime non-drinker (finding)[facility] Work Phone: Start: 01-15-2022 End: 55-87-7932DpqZcsyrr (finding)[facility] Centertart: 07-06-2024 End: 33-92-9146Gcpluicdd beverage intakeEx-drinker (finding)[facility] Start: 96-63-1605Ignooxz Commentpt reports no caffiene intakeNOMS Healthcare Start: 66-69-1151QkxRjcpinTKEB Healthcare Goals DatePatient GoalDesired Activity/StatePersonal health goal Functional Status QwzfSpyddgcosbIojtuxEuqtwfbe89-61-4319Azyqmdeeus hmezfc039/64UnMemorial [facility] Work Phone: 1(413) 963-957411-403577-06-1401Jeego signs68 12/31/2024 2:35 PM EST Devika Rodriguez, [facility]AREUnMem[facility] Work Phone: [phone]) 856-795611-399282-77-0793ZqrpifwdqwMemorial Health System [facility]by [facility] Hospital Work Phone: NEGATED: Highlighted rowFunctional performance Functional status health issues are not documented RcxebjfRG-PCSNE-Lcoyhq [address] [facility] Work Phone: Mental Status DateAssessmentResultFacilityNEGATED: Highlighted rowCognitive function [Interpretation]Cognitive status health issues are not documented Disease LH-DOFXU-Lnknzh [address] [facility] Work Phone: Clinical Notes 07-19-2012 to 12-31-2024 Note Date & IbpmDpzlDizuabtc47-60-1109 History of Present illness Narrative* Ariel Calderon MD - 12/31/2024 2:30 PM EST HPI Patient is in the office for follow-up for history of neurocardiogenic syncope, she has anxiety disorder managed by PCP and recently had symptoms of palpitations for which we did a 48-hour Holter monitor which captured no significant arrhythmias. The findings were shared with the patient. She has in creased awareness of her heart beats even though when the heart is beating normal. Previously had structurally normal heart based on the echocardiograms that she had in the past the last 1 from 2015.Her weight remains above target in class I obesity. BMI 32 kg/m . The findings of the Holter monitor were reviewed and shared with patient reassurances were provided. Examination today was unremarkable for class I obesity Assessment/recommendations: 1-history of orthostatic hypotension and weak [...] weight which I encouraged her to keep. 3-intermittent palpitations with no documentation of cardiac arrhythmias associated with the symptoms based on recent 48-hour Holter monitor. Sometimes the symptoms are more accentuated at nighttime.Will prescribe Nebivolol 2-1/2 mg to be used as needed for evening palpitations. Patient understandand will fill the prescription 4-anxiety disorder on medical therapy with Ativan as needed prescribed by PCP. ROS Palpitations Vitals: 12/31/24 1435 BP: 110/64 BP Location: Left arm Patient Position: Sitting Pulse: 68 Weight: 99.3 kg (219 lb) Height: 1.753 m (5' 9 ) Objective [...] g, and Pseudoephedrine Current Medications Current Outpatient Medications Medication Instructions buPROPion SR (Wellbutrin SR) 100 mg 12 hr tablet take 1 tablet by mouth twice a day (DON'T CRUSH) nebivolol (Bystolic) 2.5 mg tablet Take one tablet as needed for palpitations. Do not exceed 24 hr pantoprazole (PROTONIX) 40 mg, Daily Assessment/Plan 1. Neurocardiogenic pre-syncope Follow Up In Cardiology Follow Up In Cardiology nebivolol (Bystolic) 2.5 mg tablet 2. Hypotension, unspecified hypotension type 3. Palpitations nebivolol (Bystolic) 2.5 mg tablet 4. BMI 32.0-32.9,adult 5. Never smoked tobacco Scribe Attestation By signing my name below, I, Hollie Robertson LPN' , Rosio attest that this documentation has been prepared [...] exam, discussion and plan. documented in this encounterFort [facility] Hospital Work Phone: 1(744) 499-320811-10-2025 Instructions* Patient Instructions* Hollie Almanzar LPN - 12/31/2024 2:30 PM EST Please bring all medicines, vitamins, and herbal supplements with you when you come to the office. Prescriptions will not be filled unless you are compliant with your follow up appointments or have a follow up appointment scheduled as per instruction of your physician. Refills should be requested at the time of your visit. BMI was above normal measurement. Current weight: 99.3 kg (219 lb) Weight change since last visit (-) denotes wt loss -1.2 lbs Weight loss needed to achieve BMI 25: 50.1 Lbs Weight loss needed to achieve BMI 30: 16.3 Lbs Provided instructions on dietary changes Provided instructions on exercise. Bystolic 2.5 mg as needed/directed * Attachments The following attachments cannot be sent through Care Everywhere. * Heart Healthy Diet (Danish) documented in this [facility] Work Phone: 1(756) 715-658511-04-2025 History of Present illness Narrative* MICHELE Jo - 12/25/2024 11:00 AM EST Reason for Appointment: Patient ID: Jessica Valdez is a 34 y.o. female who presents for Breast Pain (Patient present today for left breast pain/tenderness.) Patient presents today for Left breast tenderness and pain off and on over a year. MEDICATIONS Current Outpatient Medications Medication Instructions acetaminophen (TYLENOL) 500 mg, Every 6 hours PRN ALLERGIES Allergies Allergen Reactions Fluoxetine Other Reaction(s): serotonin syndrome Cefaclor Hives Other Reaction(s): rashes Cefdinir Swelling and Hives Other Reaction(s): rashes Other Reaction(s): Rash Cefuroxime Other Reaction(s): rash Doxycycline Hives Other Reaction(s): finger swelling, joints swollen, Unknown Fluconazole Other Reaction(s): Other: See Comments Other reaction(s): Other: See Comments QT prolongation QT prolongation Other Reaction(s): Other, Other: See Comments, QT Prolongation QT prolongation Other Reaction(s): Other: See Comments Other reaction(s): Other: See Comments QT prolongation QT prolongation Other reaction(s): Other: See Comments QT prolongation QT prolongation Other reaction(s): Other: See Comments QT prolongation Ibuprofen Hives Other Reaction(s): Rash Pseudoephedrine-Ibuprofen Hives Sulfamethoxazole-Trimethoprim Unknown Tetracycline Hives Other Reaction(s): hives Amoxicillin Rash Amoxicillin-Pot Clavulanate Rash and Hives Azithromycin Rash and Hives Other Reaction(s): rashes Cefprozil Rash Other Reaction(s): rashes Dextromethorphan Hbr Rash Other Reaction(s): rashes Erythromycin Rash Erythromycin Base Rash Other Reaction(s): rash Guaifenesin Rash Other Reaction(s): rashes Penicillin G Rash Penicillins Rash Other Reaction(s): Rash, Unknown Pseudoephedrine Rash Other Reaction(s): rashes Sulfa Antibiotics Rash and Hives Other Reaction(s): Hives Trimethoprim Rash PROBLEMS Active Ambulatory Problems Diagnosis Date Noted Cervicalgia 12/09/2022 Migraine 12/09/2022 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 Balance disorder 12/15/2022 Abdominal pain 02/02/2024 Acute sinusitis 02/02/2024 Adjustment disorder 02/02/2024 Amenorrhea 02/02/2024 Anovulation 02/02/2024 Anxiety and depression 12/12/2022 Cervical lymphadenopathy 02/02/2024 delivery delivered ([facility]) 02/02/2024 Cough 02/02/2024 Dysmenorrhea 12/12/2022 Encounter for supervision of other normal , unspecified trimester ([facility]) 02/02/2024 BMI 32.0-32.9,adult 12/30/2023 First trimester bleeding ([facility]) 02/02/2024 Hypotension 12/12/2022 Iron deficiency anemia 02/02/2024 Irregular menses 02/02/2024 Nausea & vomiting 02/02/2024 Neurocardiogenic pre-syncope 12/12/2022 Never smoked tobacco 12/30/2023 Pain in female genitalia on intercourse 02/02/2024 Pelvic floor dysfunction 12/12/2022 Pelvic floor tension 12/12/2022 PMDD (premenstrual dysphoric disorder) 02/02/2024 S/P 02/02/2024 Weight gain 02/02/2024 Serotonin syndrome Resolved Ambulatory Problems Diagnosis Date Noted No Resolved Ambulatory Problems Past Medical History: Diagnosis Date Anxiety Endometriosis History of chicken pox Migraines Neurocardiogenic syncope OCD (obsessive compulsive disorder) HISTORY PAST MEDICAL HISTORY SOCIAL HISTORY Past Medical History: Diagnosis Date Anxiety Endometriosis History of chicken pox In Childhood Migraines Neurocardiogenic syncope OCD (obsessive compulsive disorder) Serotonin syndrome Social History Tobacco Use Smoking status: Never Smokeless tobacco: Never Vaping Use Vaping status: Never Used Substance Use Topics Alcohol use: Not Currently Comment: pt reports no caffiene intake Drug use: Never FAMILY HISTORY Family History Problem Relation Name Age of Onset Hypertension Mother No Known Problems Father No Known Problems Sister No Known Problems Daughter No Known Problems Son Diabetes Maternal Grandmother Heart disease Maternal Grandmother Cancer Maternal Grandmother Mental illness Paternal Grandmother Diabetes Paternal Grandfather Melanoma Neg Hx SURGICAL HISTORY Past Surgical History: Procedure Laterality Date SECTION, LOW TRANSVERSE 06/19/2021 ECTOPIC SURGERY Left 07/10/2024 INNER EAR SURGERY ear tubes as a baby LAPAROSCOPY DIAGNOSTIC / BIOPSY / ASPIRATION / LYSIS Left tubal OTHER SURGICAL HISTORY IVF 3 rounds PELVIC LAPAROSCOPY endometriosis TUBAL LIGATION Left 07/10/2024 XR HYSTEROSALPINGOGRAM 04/29/2017 REVIEW OF SYSTEMS Review of Systems: Review of Systems Constitutional: Negative. HENT: Negative. Eyes: Negative. Breasts: Left breast pain Respiratory: Negative. Cardiovascular: Negative. Gastrointestinal: Negative. Genitourinary: Negative. Musculoskeletal: Negative. Skin: Negative. Neurological: Negative. All other systems reviewed and are negative. Hematological: Negative. Endocrine: Negative. Allergic/Immunologic: Negative. OBJECTIVE Objective: Physical Exam Constitutional: Appearance: Normal appearance. She is well-developed and normal weight. Genitourinary: Breasts: Breasts are soft. Right: Normal. No tenderness. Left: Normal. No tenderness. HENT: Head: Normocephalic. Cardiovascular: Rate and Rhythm: Normal rate and regular rhythm. Pulses: Normal pulses. Pulmonary: Effort: Pulmonary effort is normal. Breath sounds: Normal breath sounds. Abdominal: General: Bowel sounds are normal. There is no distension. Palpations: Abdomen is soft. Tenderness: There is no abdominal tenderness. There is no guarding or rebound. Musculoskeletal: General: No swelling. Normal range of motion. Right lower leg: No edema. Left lower leg: No edema. Neurological: General: No focal deficit present. Mental Status: She is alert and oriented to person, place, and time. Skin: General: Skin is warm and dry. Psychiatric: Mood and Affect: Mood normal. Behavior: Behavior normal. Thought Content: Thought content normal. Judgment: Judgment normal. Vitals and nursing note reviewed. Exam conducted with a bilingual inside sales representative present. Vitals: Estimated body mass index is 32.78 kg/m as calculated from the following: Height as of this encounter: 5' 9 . Weight as of this encounter: 222 lb. BP: 110/68 Patient's last menstrual period was 12/13/2024 (exact date). Assessment/Plan ICD-10-CM 1. Breast pain, left N64.4 2. Breast tenderness in female N64.4 Pt present today to discuss the pain/tenderness of her Left breast. Pt stated she has had this issue for over a year and it comes and goes. Pt stated she had a breast US on and a cyst was found at the 6 o'clock position. And then a rpt breast US was done on 06/14/2024 with cyst being resolved on its own. Pt is unsure if this is a hormonal issue or not. Pt advised more support with bra, aspercreme, ibuprofen, and to finish clindamycin. Pt given labs and ultrasound orders to have obtained. Discussed fertility. [facility] ordered pt faile d Documented by Oxana Perla MA on behalf of: MICHELE Jo documented in this encounterUniversity Health Lakewood Medical CenterAtvcburast70-93-5150 Evaluation note* Author Bakari Escalera [facility]Aut[facility] 2024 4:22pmThe above note written by ___Dorcas Rush____ acting as human recorder, note dictated by Dr. Marley .I performed the above HPI, ROS, and Examination. I formulated and dictated the treatment plan and was present for entire encounter. Bakari Escalera D.O. [facility] Work Phone: 1([phone] 175-362706-03-2025 Evaluation note* Author Bakari Escalera [facility] HospitalAutho[facility] 2024 1:30pmThe above note written by ___Dorcas Rush____ acting as human recorder, note dictated by Dr. Marley .I performed the above HPI, ROS, and Examination. I formulated and dictated the treatment plan and was present for entire encounter. Bakari Escalera D.O. Author Bakari Escalera [facility] HospitalAutho[facility] 2024 4:21pmThe above note written by ___Dorcas Rush____ acting as human recorder, note dictated by Dr. Marley .I performed the above HPI, ROS, and Examination. I formulated and dictated the treatment plan and was present for entire encounter. Bakari Escalera D.O. [facility] Work Phone: 1(400) 697-905506-03-2025 Evaluation note* Author Bakari Escalera [facility] 2024 1:30pmThe above note written by ___Dorcas Rush____ acting as human recorder, note dictated by Dr. Marley .I performed the above HPI, ROS, and Examination. I formulated and dictated the treatment plan and was present for entire encounter. Bakari Escalera D.O. [facility] Work Phone: 1(903) 712-929205-27-2025 History of Present illness Narrative* Donna Jeronimoheron, [employer] - 07/17/2024 1:30 PM EDT Reason for Appointment: Patient ID: Jessica Valdez is a 34 y.o. female who presents for Post-op Visit Patient presents today for Acute Visit. and Consult appointment. 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 Balance disorder 12/15/2022 Abdominal pain 02/02/2024 Acute sinusitis 02/02/2024 Adjustment disorder ([facility] 02/02/2024 Amenorrhea 02/02/2024 Anovulation 02/02/2024 Anxiety and depression ([facility]) 12/12/2022 Cervical lymphadenopathy 02/02/2024 delivery delivered 02/02/2024 Cough 02/02/2024 Dysmenorrhea 12/12/2022 Encounter for supervision of other normal , unspecified trimester 02/02/2024 BMI 32.0-32.9,adult 12/30/2023 First trimester bleeding 02/02/2024 Hypotension 12/12/2022 Iron deficiency anemia 02/02/2024 Irregular menses 02/02/2024 Nausea & vomiting 02/02/2024 Neurocardiogenic pre-syncope 12/12/2022 Never smoked tobacco 12/30/2023 Pain in female genitalia on intercourse 02/02/2024 Pelvic floor dysfunction 12/12/2022 Pelvic floor tension 12/12/2022 PMDD (premenstrual dysphoric disorder) ([facility]) 02/02/2024 S/P 02/02/2024 Weight gain 02/02/2024 Serotonin syndrome Resolved Ambulatory Problems Diagnosis Date Noted No Resolved Ambulatory Problems Past Medical History: Diagnosis Date Anxiety Endometriosis History of chicken pox Migraines ([facility]) Neurocardiogenic syncope OCD (obsessive compulsive disorder) ([facility]) HISTORY PAST MEDICAL HISTORY SOCIAL HISTORY Past Medical History: Diagnosis Date Anxiety Endometriosis History of chicken pox In Childhood Migraines ([facility]) Neurocardiogenic syncope OCD (obsessive compulsive disorder) ([facility]) Serotonin syndrome Social History Tobacco Use Smoking status: Never Smokeless tobacco: Never Vaping Use Vaping status: Never Used Substance Use Topics Alcohol use: Not Currently Comment: pt reports no caffiene intake Drug use: Never FAMILY HISTORY Family History Problem Relation Name Age of Onset Hypertension Mother No Known Problems Father No Known Problems Sister No Known Problems Daughter No Known Problems Son Diabetes Maternal Grandmother Heart disease Maternal Grandmother Cancer Maternal Grandmother Mental illness Paternal Grandmother Diabetes Paternal Grandfather Melanoma Neg Hx SURGICAL HISTORY Past Surgical History: Procedure Laterality Date SECTION, LOW TRANSVERSE 06/19/2021 ECTOPIC SURGERY Left 07/10/2024 INNER EAR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 Member Name Dates Details FH: CABG (coronary artery by pass surgery): Grandmother(V17.3, Z82.49) Status:ActiveFH: colon cancer: Grandmother(V16.0, Z80.0) Status:ActiveFamily history of diabetes mellitus: Grandparent(V18.0, Z83.3) Status:ActiveTIA (transient ischemic attack): Grandmother Status:ActiveNo pertinent family history: Mother, Father(V49.89, Z78.9) Status:Active Unknown Family Member Name Dates Details FH: CABG (coronary artery by pass surgery): Grandmother(V17.3, Z82.49) Status:ActiveFH: colon cancer: Grandmother(V16.0, Z80.0) Status:ActiveFamily history of diabetes mellitus: Grandparent(V18.0, Z83.3) Status:ActiveTIA (transient ischemic attack): Grandmother Status:ActiveNo pertinent family history: Mother, Father(V49.89, Z78.9) Status:Active Unknown Family Member Name Dates Details FH: CABG (coronary artery by pass surgery): Grandmother(V17.3, Z82.49) Status:ActiveFH: colon cancer: Grandmother(V16.0, Z80.0) Status:ActiveFamily history of diabetes mellitus: Grandparent(V18.0, Z83.3) Status:ActiveTIA (transient ischemic attack): Grandmother Status:ActiveNo pertinent family history: Mother, Father(V49.89, Z78.9) Status:Active Unknown Family Member Name Dates Details FH: CABG (coronary artery by pass surgery): Grandmother(V17.3, Z82.49) Status:ActiveFH: colon cancer: Grandmother(V16.0, Z80.0) Status:ActiveFamily history of diabetes mellitus: Grandparent(V18.0, Z83.3) Status:ActiveTIA (transient ischemic attack): Grandmother Status:ActiveNo pertinent family history: Mother, Father(V49.89, Z78.9) Status:Active Unknown Family Member Name Dates Details FH: CABG (coronary artery by pass surgery): Grandmother(V17.3, Z82.49) Status:ActiveFH: colon cancer: Grandmother(V16.0, Z80.0) Status:ActiveFamily history of diabetes mellitus: Grandparent(V18.0, Z83.3) Status:ActiveTIA (transient ischemic attack): Grandmother Status:ActiveNo pertinent family history: Mother, Father(V49.89, Z78.9) Status:Active Unknown Family Member Name Dates Details FH: CABG (coronary artery by pass surgery): Grandmother(V17.3, Z82.49) Status:ActiveFH: colon cancer: Grandmother(V16.0, Z80.0) Status:ActiveFamily history of diabetes mellitus: Grandparent(V18.0, Z83.3) Status:ActiveTIA (transient ischemic attack): Grandmother Status:ActiveNo pertinent family history: Mother, Father(V49.89, Z78.9) Status:Active Relationship Condition Age at Onset Recorded Date/T maco grandparent Unknown Diabetes mellitusUnknownHeart diseaseUnknowngrandparentDiabetes mellitusUnknown grandparentFamily history of mental disorderUnknownAlzheimer's dementiaUnknown motherDiverticulitisUnknown Advance Directives Advance Directive Response Recorded Date/ [...] 4. Chromopertubation Surgeon: Dr. Shaila Conley Resident/Fellow/Other Traffic Operator: Dr. Emilie Childers Anesthesia: GETA I.V. [...] 2024 3 :36pm Chief Complaint Admit Date dizziness May 07, 2024 3:3 6pm R42 June 06, 2024 7:3 3am See order June 29, 2024 10:39a m z32.00 July 02, 2024 8:15a m Unknown July 07, 2024 11:10 am see order July 09, 2024 8:46a m Unknown July 10, 2024 4:33p m Reason for Visit Admit Date Acute sinusitis May 07, 2024 3:3 6pm Anxiety May 07, 2024 3:3 6pm Dizziness May 07, 2024 3:3 6pm Dyspnea on exertion May 07, 2024 3:3 6pm Insomnia May 07, 2024 3:3 6pm Restless leg syndrome May 07, 2024 3 :36pm Chief Complaint Admit Date dizziness May 07, 2024 3:3 6pm R42 June 06, 2024 7:3 3am See order June 29, 2024 10:39a m z32.00 July 02, 2024 8:15a m Unknown July 07, 2024 11:10 am see order July 09, 2024 8:46a m Unknown July 10, 2024 4:33p m See order July 19, 2024 10:53 am Chief Complaint Admit Date dizziness May 07, 2024 3:3 6pm R42 June 06, 2024 7:3 3am See order June 29, 2024 10:39a m z32.00 July 02, 2024 8:15a m Unknown July 07, 2024 11:10 am see order July 09, 2024 8:46a m Unknown July 10, 2024 4:33p m See order July 19, 2024 10:53 am med refill / evaluate ears July 24 12:40pm Reason for Visit Admit Date Acute sinusitis May 07, 2024 3:3 6pm Anxiety May 07, 2024 3:3 6pm Dizziness May 07, 2024 3:3 6pm Dyspnea on exertion May 07, 2024 3:3 6pm Insomnia May 07, 2024 3:3 6pm Restless leg syndrome May 07, 2024 3 :36pm Anxiety July 24, 2024 12:40 pm Dizziness July 24, 2024 12:40 pm 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 Kidney stone July 24, 2024 12:40 pm Chief Complaint Admit Date See order June 29, 2024 10:39a m z32.00 July 02, 2024 8:15a m Unknown July 07, 2024 11:10 am see order July 09, 2024 8:46a m Unknown July 10, 2024 4:33p m See order July 19, 2024 10:53 am med refill / evaluate ears July 24 12:40pm O00.90 July 30, 2024 12:34 pm e28.2 September 11, 2024 9:30 am Reason for Visit Admit Date Anxiety July 24, 2024 12:40 pm Dizziness July 24, 2024 12:40 pm 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 Kidney stone July 24, 2024 12:40 pm Chief Complaint Admit Date e28.2 September 11, 2024 9:30 am med refill November 05, 2024 3:41pm Reason for Visit Admit Date Anemia November 05, 2024 3:41pm Anxiety November 05, 2024 3:41pm Dizziness November 05, 2024 3:41pm Fatigue November 05, 2024 3:41pm Hyperglycemia November 05, 2024 3:41pm Weight gain November 05, 2024 3:41pm Chief Complaint Admit Date med refill November 05, 2024 3:41pm R73.9 D64.9 R53.83 R00.2 November 15, 2024 7:04am abd pains December 12, 2024 9 :54am Reason for Visit Admit Date Anemia November 05, 2024 3:41pm Anxiety November 05, 2024 3:41pm Dizziness November 05, 2024 3:41pm Fatigue November 05, 2024 3:41pm Hyperglycemia November 05, 2024 3:41pm Weight gain November 05, 2024 3:41pm Abdominal pain December 12, 2024 9 :54am Anxiety December 12, 2024 9 :54am Nausea December 12, 2024 9 :54am Chief Complaint * JESSICA VALDEZ is being [...] Diagnosis 1 Concussion (S06.0X9A ) Referral Organization [facility] Referring Provider First Name Bakari Referring Provider Last Name Nilay Referring Provider Specialty Family Prac rohith Referred Organization [facility] Referred Address [address] [place] [place],[address] Referred Provider Specialty Miscellaneou s Referral Priority Routine General Notes Polly Damon 09/29/2022 10:03:18 AM > pt was provided with the phone number for [facility] Conc[facility] and she will call and make this appt herself. referral closed. Reason appt consult for c oncussion/[facility] concussion clinic Diagnosis 1 Concussion (S06.0X9A ) Referral Organization [facility] Referring Provider First Name Bakari Referring Provider Last Name Nilay Referring Provider Specialty Family Prac rohith Referred Organization [facility] Referred Address [address] [place] [place],[address] Referred Provider Specialty Sport Medici ne Referral Priority Routine General Notes Polly Damon 09/29/2022 10:54:51 AM > per pt, she does need a referral to the concussion clinic. [facility] concussion clinic contacted, , and obtained fax number of [phone]. referral faxed with visit note, CT report and insurance card. Additional Source Comments INFORMATION SOURCE (unrecogn ized section and content) DATE CREATED AUTHOR 11/20/2019 [facility] DATE CREATED AUTHOR AUTHOR'S ORGANIZ ATION 03/17/2022 [facility] [employer] DATE CREATED AUTHOR AUTHOR'S ORGANIZ ATION 06/03/2022 [facility] DATE CREATED AUTHOR AUTHOR'S ORGANIZ ATION 06/25/2022 [facility] DATE CREATED AUTHOR AUTHOR'S ORGANIZ ATION 10/15/2022 [employer] DATE CREATED AUTHOR AUTHOR'S ORGANIZ ATION 01/22/2023 [facility] DATE CREATED AUTHOR AUTHOR'S ORGANIZ ATION 05/14/2024 [facility] DATE CREATED AUTHOR AUTHOR'S ORGANIZ ATION 11/24/2024 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 Teams (unrecognized sec tion and content) Team Status: Active Member Role Status Dates Bakari Escalera DO Primary Care Provider Active Team Status: Inactive Member Role Status Dates Bakari Escalera DO Primary Care Provider, Attending Pro vider Active Team MemberRelationshipSpecialtyStart DateEnd Date Bakari Escalera DO [address] [place] [id number] PCP - General08/28/19Team MemberRelationshipSpecialtyStart DateEnd Date Bakari Escalera DO [address] [place] [phone] PCP - General08/28/19 Team Status: Inactive Member Role Status Dates Bakari Escalera DO Primary Care Provider Active Yang Garcia DOAttending ProviderActiveTeam MemberRelationship SpecialtyStart DateEnd Date Bakari Escalera DO [address] [place] [phone] PCP - General08/28/19Team MemberRelationshipSpecialtyStart DateEnd Date Bakari Escalera DO [address] [place] [phone] PCP - General08/28/19 Team Status: Inactive Member Role Status Dates Bakari Escalera DO Primary Care Provide r, Attending Provider Active Start: October 28, 2023 End: October 28, 2023Team MemberRelationshipSpecialtyStart DateEnd Date Bakari Escalera MD [address] [place] [address] [facility]09/30/22Team MemberRelationshipSpecialtyStart DateEnd Date Bakari Escalera DO PCP - General08/28/19Team MemberRelationshipSpecialtyStart DateEnd Date Bakari Escalera MD [address] [place] [address] [facility]/22Team MemberRelationshipSpecialtyStart DateEnd Date Bakari Escalera MD [address] [place] [address] [facility] - [facility]09/30/22Team MemberRelationshipSpecialtyStart DateEnd Date Bakari Escalera MD [address] [place] [address] [facility] - [facility]09/30/22Team MemberRelationshipSpecialtyStart DateEnd Date Bakari Escalera MD [address] [place] [address] [facility] - [facility]09/30/22Team MemberRelationshipSpecialtyStart DateEnd Date Bakari Escalera MD [address] [place] [address] PCP - Generalmily Medicine09/30/22 Team Status: Inactive Member Role Status Dates Bakari Escalera DO Primary Care Provider Active S tart: April 05, 2024 End: April 05, 2024Jeni Whittington , APRNAttending ProviderActiveStart: April 05, 2024 End: April 05, 2024Team MemberRelationshipSpecialtyStart DateEnd Date Bakari Escalera MD [address] [place], [place] [id number] PCP - [facility]09/30/22 Team Status: Active Member Role Status Dates Bakari Escalera DO Primary Care Provider Active S tart: April 07, 2024 Usama Tillman , DOAttending ProviderActiveStart: April 07, 2024 Team Status: Inactive Member Role Status Dates Bakari Escalera DO Primary Care Provide r, Attending Provider Active Start: April 18, 2024 End: April 18, 2024 Team Status: Inactive Member Role Status Dates Bakari Escalera DO Primary Care Provide r, Attending Provider Active Start: May 07, 2024 End: May 07, 2024Team MemberRelationshipSpecialtyStart DateEnd Date Bakari Escalera DO [facility]08/28/19 Team Status: Inactive Member Role Status Dates Bakari Escalera DO Primary Care Provide r, Attending Provider Active Start: June 06, 2024 End: June 06, 2024Team MemberRelationshipSpecialtyStart DateEnd Date Bakari Escalera MD [address] [place] [address] [place] [address] [facility]09/30/22Team MemberRelationshipSpecialtyStart DateEnd Date Bakari Escalera MD [address] [place] [address] [facility] - [facility]09/30/22 Team Status: Inactive Member Role Status Dates Bakari Escalera DO Primary Care Provider Active S tart: June 29, 2024 End: June 29, 2024Kattanisha Villar DOAttending ProviderActiveStart: June 29, 2024 End: June 29, 2024 Team Status: Inactive Member Role Status Dates Bakari Escalera DO Primary Care Provider Active S tart: July 02, 2024 End: July 02, 2024Kattanisha Villar DOAttending ProviderActiveStart: July 02, 2024 End: July 02, 2024Team MemberRelationshipSpecialtyStart DateEnd Date Bakari Escalera MD [address] [place], [place] [id number] PCP - [facility] Medicine09/30/22Team MemberRelationshipSpecialtyStart DateEnd Date Bakari Escalera MD [address] [place] [address] [place] [address] PCP - [facility]09/30/22 Team Status: Inactive Member Role Status Dates Luna La MD Attending Provider Active Sta rt: July 07, 2024 End: July 07, 2024 Team Status: Active Member Role Status Dates Bakari Escalera DO Primary Care Provider Active S tart: July 07, 2024 Luna La MDAttmelo ProviderActiveStart: July 07, 2024 Team Status: Inactive Member Role Status Dates Bakari Escalera DO Primary Care Provider Active S tart: July 09, 2024 End: July 09, 2024Kattanisha DO BrisaAttending ProviderActiveStart: July 09, 2024 End: July 09, 2024 Team Status: Active Member Role Status Dates Warren Jacinto MD Attending Provider Active Start : July 10, 2024 Team Status: Inactive Member Role Status Dates Ruddy Mejia DO Attending Provider Active Start : July 10, 2024 End: July 10, 2024 Team Status: Active Member Role Status Dates Warren Jacinto MD Attending Provider Active Start : July 11, 2024 Team MemberRelationshipSpecialtyStart DateEnd Date Bakari Escalera MD [address] [place] [address] [place] [address] [facility]09/30/22 Team Status: Inactive Member Role Status Dates Ruddy Mejia DO Attending Provider Active Start : July 19, 2024 End: July 19, 2024Team MemberRelationshipSpecialtyStart DateEnd Date Bakari Escalera MD [address] [place] [address] [facility]09/30/22 Team Status: Inactive Member Role Status Dates Bakari Escalera DO Primary Care Provide r, Attending Provider Active Start: July 24, 2024 End: July 24, 2024 Team Status: Inactive Member Role Status Dates Bakari Escalera DO Primary Care Provider Active S tart: July 30, 2024 End: July 30kim Mejia DOAttending ProviderActiveStart: July 30, 2024 End: July 30, 2024Team MemberRelationshipSpecialtyStart DateEnd Date Bakari Escalera MD [address] [place] [address] [facility]09/30/22 Team Status: Inactive Member Role Status Elizabet Escalera DO Primary Care Provider Active S tart: July 24, 2024 End: July 24, 2024Daleón Escalera DOAttmelo ProviderActiveStart: July 24, 2024 End: July 24, 2024 Team Status: Inactive Member Role Status Elizabet Escalera DO Primary Care Provider Active S tart: September 11, 2024 End: September 11, 2024Daleón Escalera DOAttending ProviderActiveStart: September 11, 2024 End: September 11, 2024 Team Status: Inactive Member Role Status Elizabet Escalera DO Primary Care Provider Active S tart: November 05, 2024 End: November 05, 2024Daleón Escalera DOAttending ProviderActiveStart: November 05, 2024 End: November 05, 2024 Team Status: Inactive Member Role Status Dates Bakari Escalera DO Primary Care Provider Active S tart: November 15, 2024 End: November 15, 2024Dahoraceyaron Escalera DOAttending ProviderActiveStart: November 15, 2024 End: November 15, 2024 Team Status: Active Member Role/Relationship Status Dates Bakari Madisonnina DO Primary Care Provider Active Team Status: Inactive Member Role/Relationship Status Dates Bakari Escalera Primary Care Provider Active S tart: November 05, 2024 End: November 05, 2024Daleón DO NilayAttending ProviderActiveStart: November 05, 2024 End: November 05, 2024 Team Status: Inactive Member Role/Relationship Status Dates Bakari Escalera Primary Care Provider Active S tart: November 15, 2024 End: November 15, 2024Daleón DO NilayAttending ProviderActiveStart: November 15, 2024 End: November 15, 2024 Team Status: Inactive Member Role/Relationship Status Dates Bakari Escalear Primary Care Provider Active S tart: December 12, 2024 End: December 12, 2024Daleón MadisonDO ninaAttending ProviderActiveStart: December 12, 2024 End: December 12, 2024Team MemberRelationshipSpecialtyStart DateEnd Date Bakari Escalera MD [address] [facility] [place] [address] [facility]09/30/22Team MemberRelationshipSpecialtyStart DateEnd Date Bakari Escalera MD [address] [facility] [place] [address] [facility]09/30/22Team MemberRelationshipSpecialtyStart DateEnd Date Bakari Escalera DO [address] [place] [address] [facility]12/26/24 Goals (unrecognized section and content) Goals may [...] FOR VISIT (unrecogniz ed section and content) ReasonCommentsFollow-upPt presents for follow up on US results. Pt states still been having on and off pelvic pain. Pt states uncomfortable again. Pt C/o Lt. Breast pain. Denies feeling lump. Pt states pain goes into armpit. Pt states she is still .ReasonCommentsFollow-up6 monthReasonCommentsGynecologic ExamPt c/o dysuria. Urine collected. Pt would like to discuss Zoloft. Pt c/o legs being achy right before and during menses. Pt states will be more emotional a day or two before menses and a couple of days during menses. Pt notice more bloating. LMP 8/07/14 menses regular. PT will notice around menses bowel/bladder changes, will having burning sensation with urination.ReasonCommentsSuspicious Skin LesionSkin CheckReasonCommentsInitial VisitNurse VisitReason CommentsPost-op VisitReasonCommentsBreast PainPatient present today for left breast pain/tenderness.ReasonCommentsAnnual Exam1 year follow up for Neurocardiogenic pre-syncopeSpecialtyDiagnoses / ProceduresReferred By Contact Referred To ContactCardiology Diagnoses Neurocardiogenic pre-syncope Procedures Follow Up In Cardiology Ariel Calderon MD [address] [facility], [address] [address] Phone: tel: fax: Ariel Calderon MD [address] [facility], [address] [address] Phone: tel: fax: Referral IDStatusReasonStart DateExpiration DateVisits RequestedVisits [id number] FOR RECORDS PERTAINING TO PATIENTS WHO ARE [...] BE BASED ON THE PRIMARY CLINICAL RECORDS. [facility] [employer] [facility]. provides no warranty or guarantee of the accuracy or completeness of information in this document.
--- OUTSIDE RECORDS SUMMARY | 2025-01-26 10:05 | XMS_ITS | Clinical Summary ---
Author Organization [facility] Address [address] [place] [address] Care Team Providers Care Branch Controller Name Role Phone John Pemberton MD Primary Care Provider [phone] Allergies Active AllergyReactionsCriticalityNoted TzbzUoooexfgFyqpxyeasguMtpgWme05/10/2023 Amoxicillin-Pot ClavulanateRash,IwqglPvm68/10/2023AzithromycinRash,HivesLow 05/21/2016 Other Reaction(s): rashes LqrmnldnMnwan54/10/2023 Other Reaction(s): rashes CefdinirSwelling,Hives05/21/2016 Other Reaction(s): rashes Other Reaction(s): Rash PrlgpenxcHkadHlf62/10/2023 Other Reaction(s): rashes Yytoxzeymb48/15/2025 Other Reaction(s): rash Dextromethorphan BhsLhwxWxz20/10/2023 Other Reaction(s): rashes AnprwsmbkqeGzqik11/31/2017 Other Reaction(s): finger swelling, joints swollen, Unknown NgdsstfvhkwaVlwmRui83/31/2017Erythromycin GuutRlldTzt72/02/2024 Other Reaction(s): rash Qfzjbzruwdu19/31/2017 Other Reaction(s): Other: See Comments Other reaction(s): Other: See Comments QT prolongation QT prolongation Other Reaction(s): Other, Other: See Comments, QT Prolongation QT prolongation Other Reaction(s): Other: See Comments ??Other reaction(s): Other: See Comments QT prolongation ?? QT prolongation Other reaction(s): Other: See Comments QT prolongation QT prolongation Other reaction(s): Other: See Comments QT prolongation NoreejnhbbCmxt06/15/2025 Other Reaction(s): serotonin syndrome GnfestrldwcGuouFim11/10/2023 Other Reaction(s): rashes LnfaxwbwxXprlv35/28/2019 Other Reaction(s): Rash Penicillin SGlvnZef41/31/0660FeylgramxeaVdehKas77/31/2017 Other Reaction(s): Rash, Unknown LlollgxyvyipaaaDkrqCit48/10/2023 Other Reaction(s): rashes Pseudoephedrine-TrzoffqseGxjyv74/22/2023Sulfa AntibioticsRash,WuolbHkw17/31/2017 Other Reaction(s): Hives Sulfamethoxazole-HyarmydtwodpAtubisc54/22/0602NrqrlhqtshzeNpwhz55/10/2023 Other Reaction(s): hives WpyrovjadtjgCajjZuu54/02/2024 Medications MedicationSigDispense QuantityRefillsLast FilledStart DateEnd DateStatus acetaminophen (Tylenol) 500 MG tablet Take 500 mg by mouth every 6 (six) hours if needed for mild painActive Active Problems ProblemNoted DateDiagnosed DateAbdominal pain02/02/2024cute uavgttdvu50/12/2024 Adjustment yxraqrju29/12/7218Qscnyljzvb57/12/5553Qjmjlktfgol02/12/2024ervical ylhjlmanmtknrdp27/12/2024esarean delivery delivered ([facility])02/02/2024ough 02/02/2024Encounter for supervision of other normal , unspecified trimester ([facility])02/02/2024First trimester bleeding ([facility])02/02/2024Iron deficiency gzmqjk4002/02/2024Irregular webujq6202/02/2024Nausea & pwwayvsp75/12/2024 Pain in female genitalia on qvimjgehlqn51/12/2024MDD (premenstrual dysphoric disorder)02/02/2024S/P C-aekfmyv0302/02/2024Weight gain02/02/2024MI 32.0-32.9,adult12/30/2023Never smoked znplbus8512/30/2023alance disorder 12/15/2022nxiety and uwltwhhsae58/22/7434Oitoadupzavd02/22/2023Hypotension 12/12/2022Neurocardiogenic pre-blrbugm9612/12/2022elvic floor dysfunction 12/12/2022elvic floor lzknpcp3912/12/20221027Gyyfergizmg17/19/3470Kwekemdf82/19/2023 Vertigo of central vxgryb9412/09/2022Serotonin syndrome Encounters DateTypeDepartmentCare WsdsXeemmkgctbw32/01/2025Telephone [facility] [address] [place] [address] Anya Man MA 01/07/2025External Result Encounter [facility] External Department Unsolicited Merari Vargas PA 12/25/2024 11:00 AM ESTOffice Visit [facility] [address] [place] [address] Merari Vargas PA Breast pain, left; Breast tenderness in female; PCOS (polycystic ovarian syndrome); Abnormal uterine bleeding (AUB)12/25/2024Telephone [facility] [address] [place] [address] Merari Vargas PA 12/25/2024amboo flowsheet [facility] [address] [place] [address] Merari Vargas PA 12/12/2024Telephone [facility] [address] [place] [address] Anya Man MA from Last 3 Months Family History Medical HistoryRelationNameCommentsNo Known ProblemsDaughterNo Known Problems FatherCancerMaternal GrandmotherDiabetesMaternal GrandmotherHeart disease Maternal GrandmotherHypertensionMotherDiabetesPaternal GrandfatherMental illness Paternal GrandmotherNo Known ProblemsSisterNo Known ProblemsSonMelanomaNeg Hx EftugaciQsntQepuomDjtgnjwcZoazmiwrw9TebjltTvkojGaarahqm GrandfatherDeceased Maternal GrandmotherDeceasedMotherAlivePaternal GrandfatherAlivePaternal ZnybanmympmLbmrcSrgtlyj7MmsKiqen and he is adopted Social History Tobacco UseTypesPacks/DayYears UsedDateSmoking Tobacco: NeverSmokeless Tobacco: Never Tobacco Cessation:Counseling Given: Not Answered Alcohol UseStandard Drinks/WeekCommentsNot Currently0 (1 standard drink = 0.6 oz pure alcohol)pt reports no caffiene intakeEducationAnswerDate RecordedWhat is the highest level of school you have completed or the highest degree you have received?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, DOCTOR OSTEOPATHIC, [employer]KO)3 CommentsNoSex and Gender InformationValueDate RecordedSex Assigned at BirthNot on fileLegal HhoUqjqvr85/15/2023 7:21 PM EDTGender IdentityNot on fileSexual OrientationNot on fileOccupationIndustryJob Start DateJob End DateNot on fileNot on fileNot on fileNot on file Last Filed Vital Signs Vital SignReadingTime TakenCommentsBlood Fyxxyyld691/6812/25/2024 11:13 AM EST Qgbvj44146/21/2025 3:29 PM UVSXumiszklsze69.4 ??C (97.5 ??F)04/13/2024 3:29 PM ESTRespiratory Rate--Oxygen Npwbplncyo598%04/13/2024 3:29 PM ESTInhaled Oxygen Concentration--Gcjznv562 kg (222 lb)12/25/2024 11:13 AM IEGGuztau097.3 cm (5' 9 )12/25/2024 11:13 AM ESTBody Mass Index32.7812/25/2024 11:13 AM EST Plan of Treatment DateTypeDepartmentCare Team (Latest Contact Info)Zevhbfztcjb34/16/2025 2:00 PM ESTAncillary Procedure [facility] [address] [place] [address] 02/12/2025 10:00 AM ESTOffice Visit [facility] [address] [place] [address] Ruddy Mejia, DO [address] [place] [address] 02/25/2025 3:20 PM ESTOffice Visit [facility] [address] [place] [address] Neha Sanchez PA [address] [place] [address] Goals GoalPatient Goal TypeAssociated ProblemsRecent ProgressPatient-Stated?Author Reminders Care PlanOB RemindersNoPurvi Davis MA Procedures Procedure NamePriorityDate/TimeAssociated DiagnosisCommentsBI MAMMOGRAM DIAGNOSTIC TOMOSYNTHESIS GLKXINAOB41/17/2025 8:19 AM EST from Last 3 Months Results * Bilateral diagnostic mammogram with tomosynthesis (01/07/2025 8:19 AM EST) Anatomical RegionLateralityModalityBreastBilateralMammographySpecimen (Source) Anatomical Location / LateralityCollection Method / VolumeCollection Time Received Time01/07/2025 8:19 AM EST Impressions 01/08/2025 6:58 AM EST NO MAMMOGRAPHIC EVIDENCE OF MALIGNANCY. ? ROUTINE FOLLOW-UP IS RECOMMENDED IN ONE YEAR. ? RESULT CODE: 2 ? Benign Findings(s) ? DENSITY CODE: 2 (approximately 25-50% glandular) There are scattered areas of fibroglandular density. ? FOLLOW UP: 1YR ? The false-negative rate of mammography is approximately 10-percent. ? Management of a palpable abnormality must be based on clinical grounds. ? Impression dictated by: Ricco Gilbert M.D. ??01/07/2025 8:23 AM ? Dictation Location: [facility] ? Dictated By: ?Ricco Gilbert II, MD ? 01/07/25 0819 ? Signed By: <Electronically signed by Ricco Gilbert, II, MD in OV> ? 01/07/25 0823 Narrative 01/08/2025 6:58 AM EST ?[facility] ? [address] ? [place] [address] ?[phone] ? Mammography Report ? Signed ? Patient: Jessica Valdez ?MR#: [id number] ?? [id number] ? : 1990 ?Acct:[id number] ? Age/Sex: 34 / F ?Adm Date: 01/07/25 ? Loc: [place] ?Room: ?Type: DEP CLI ?? Attending Dr: Merari Vargas PA-C ? Ordering Provider: Merari Vargas [place] SECRETARY-C ? Date of Service: 01/07/25 ? Procedure(s): MM diagnostic mammo BI w/CAD ?? Accession Number(s): ([id number]) MM/MM diagnostic mammo BI w/CAD: N64.4 ? Copies to: Merari DELGADO ?? John Pemberton,DO ? DIAGNOSTIC BILATERAL MAMMOGRAM - FULL FIELD DIGITAL WITH TOMOSYNTHESIS ? CLINICAL DATA: ??Pain from left nipple to left axilla ? Craniocaudal and mediolateral oblique views of the left breast were obtained using low-dose digital technique. ??Comparison is made to prior studies from [facility] 05/31/1934 and 12/14/2023. ??This examination was reviewed with the aid of CAD. ? Benign-appearing calcifications are present bilaterally. There is scattered fibroglandular tissue. There are no dominant masses, typically malignant calcifications or architectural distortion. ??There has been no significant interval change. ? MM/MM diagnostic mammo BI w/CAD ?? Procedure Note Ricco Gilbert MD - 01/08/2025 [facility] [address] [place] [address] Mammography Report Signed Patient: Jessica Valdez EMR#: [id number] : 1990Acct:[id number] Age/Sex: 34 / FAdm Date: 01/07/25 Loc: [place] Room:Type: [facility] Attending Dr: Merari Vargas PA-C Ordering Provider: Merari DELGADO Date of Service: 01/07/25 Procedure(s): MM diagnostic mammo BI w/CAD Accession Number(s): ([id number]) MM/MM diagnostic mammo BI w/CAD: N64.4 Copies to: Merari Pemberton DO DIAGNOSTIC BILATERAL MAMMOGRAM - FULL FIELD DIGITAL WITH TOMOSYNTHESIS CLINICAL DATA: Pain from left nipple to left axilla Craniocaudal and mediolateral oblique views of the left breast wereobtained using low-dose digital technique. Comparison is made to prior studies from [facility] 05/31/1934 and12/14/2023. This examination was reviewed with the aid of CAD. Benign-appearing calcifications are present bilaterally. There isscattered fibroglandular tissue. There are no dominant masses, typically malignant calcifications orarchitectural distortion. There has been no significant interval change. MM/MM diagnostic mammo BI w/CAD IMPRESSION: NO MAMMOGRAPHIC EVIDENCE OF MALIGNANCY. ROUTINE FOLLOW-UP IS RECOMMENDED IN ONE YEAR. RESULT CODE: 2 Benign Findings(s) DENSITY CODE: 2 (approximately 25-50% glandular) There are scattered areasof fibroglandular density. FOLLOW UP: 1YR The false-negative rate of mammography is approximately 10-percent. Management of a palpable abnormality must be based on clinical grounds. Impression dictated by: Ricco Gilbert M.D. 01/07/2025 8:23 AM Dictation Location: [facility] Dictated By: Ricco Gilbert II, MD 01/07/25 0819 Signed By: <Electronically signed by Ricco Gilbert II, MD inOV> 01/07/25 0823 Authorizing ProviderResult TypeResult StatusAmy Sam PAI BI PROCEDURESFinal Result from Last 3 Months Additional Health Concerns Active ProblemsNoted DateDiagnosed DateOB Vqkkexnsp11/16/2025 Insurance Care Teams Team MemberRelationshipSpecialtyStart DateEnd Date John Pemberton MD [address] [facility] [place] [address] [facility]30/[facility]
--- OUTSIDE RECORDS SUMMARY | 2025-01-26 10:05 | XMS_ITS | Clinical Summary ---
Author Organization [employer] tem Address [id number] [address] [place] [address] Care Team Providers Care Exhibition Designer Name Role Phone John Pemberton DO Primary Care Provider [phone] Allergies Active AllergyReactionsCriticalityNoted DateCommentsAzithromycinRashLow 05/21/20164701PbnwdbrmPcocowrw83/31/4395VcjkysksiraPircm31/31/2017ErythromycinRash Low05/21/20169535Gglahjnncja38/31/2017 Other reaction(s): Other: See Comments QT prolongation AgqckabzkGuord81/28/7974GifbjymwaxXacpYni08/31/2017SulfacetamideRashLow 05/21/2016 Medications MedicationSigDispense QuantityRefillsLast FilledStart DateEnd DateStatus FLUoxetine (PROzac) 20 mg capsule Take 20 mg by mouth daily.Active clomiPHENE (CLOMID) 50 mg tablet take 2 tablets by mouth once daily for 5 days07/16/2019Active fludrocortisone (FLORINEF) 0.1 mg tablet 08/07/2019Active folic acid (FOLVITE) 800 MCG tablet Take 800 mcg by mouth daily.07/20/2019Active metFORMIN XR (GLUCOPHAGE-XR) 750 mg 24 hr tablet 08/08/2019Active PLUS DHA 27 mg iron-1 mg -312 mg-250 mg combo pack TAKE 1 TAB & 1 CAPSULE BY MOUTH ONE TIME A DAY LNLSIFLS77/24/2020Active progesterone (PROMETRIUM) 200 mg capsule Take 400 mg by mouth nightly.07/16/2019Active cholecalciferol, vitamin D3, (VITAMIN D3 ORAL) Take by mouth.Active coenzyme Q10 (CO Q-10) 100 mg capsule Take 600 mg by mouth daily.Active UNABLE TO FIND DHA 50 MGActive ARGININE HCL, L-ARGININE, ORAL Take 200 mg by mouth.Active Active Problems No known active problems Family History Medical HistoryRelationNameCommentsDiabetesMaternal GrandmotherHeart disease Maternal GrandmotherDiabetesPaternal GrandfatherRelationNameStatusComments Maternal GrandmotherPaternal Grandfather Social History Tobacco UseTypesPacks/DayYears UsedDateSmoking Tobacco: NeverSmokeless Tobacco: NeverAlcohol UseStandard Drinks/WeekCommentsYes0 (1 standard drink = 0.6 oz pure alcohol)AUDIT-CAnswerDate RecordedFrequency of Alcohol ConsumptionNot on file 08/10/2019Average Number of DrinksNot on file08/10/2019Q3: How often do you have six or more drinks on one occasion?Ylzadj4808/10/2019ChildcareAnswerDate Recorded AlzrqzfeoRafivds23/10/2019EmploymentAnswerDate RecordedEmploymentUnknown 07/31/2018Purpose - LifeAnswerDate RecordedPurpose and direction in lifeUnknown 1CommentsNoSex and Gender InformationValueDate RecordedSex Assigned at MylzgDfiekx02/18/2020 9:29 PM EDTLegal WhiXhozyq34/04/2015 2:10 PM EDTGender QgfbouuaWctebh39/18/2020 9:29 PM EDTSexual OrientationStraight 08/09/2019 9:29 PM EDT Last Filed Vital Signs Vital SignReadingTime TakenCommentsBlood Mafdcdqp783/68008/10/2019 10:13 AM EDT Pulse--Temperature--Respiratory Rate--Oxygen Saturation--Inhaled Oxygen Concentration--Avriyt33.2 kg (190 lb)08/24/2019 1:51 PM UTZMtwhui585.3 cm (5' 9 )08/10/2019 10:13 AM EDTBody Mass Index28. 10:13 AM EDT Plan of Treatment Health MaintenanceDue DateLast DoneCommentsDepression Ldlbcwjwq78/27/2004Tobacco Owsxegayo78/27/2004Adult BMI Fvxuqkzip73/27/2010DTaP,Tdap and Td Vaccines (1 - Tdap)2010Pap Smear2012Influenza Hgeqimn0510/22/2024 Medical Devices Not on file Insurance Care Teams Team MemberRelationshipSpecialtyStart DateEnd Date John Pemberton DO [address] [place] [address] [place] [address] PCP - GeneralFamily Gdctdhpu55/17/19
--- OUTSIDE RECORDS SUMMARY | 2025-01-26 10:05 | XMS_ITS | Encounter Summary ---
Author Organization [facility] Address [address] [place] [address] Care Team Providers Care Phlebotomy Support Tech Name Role Phone John Pemberton MD Primary Care Provider [phone] Encounter Details DateTypeDepartmentCare Team (Latest Contact Info)Lnlhpodrjrg80/01/2025Telephone [facility] [address] [place] [address] [place] [address] Anya Man MA Social History Tobacco UseTypesPacks/DayYears UsedDateSmoking Tobacco: NeverSmokeless Tobacco: NeverAlcohol UseStandard Drinks/WeekCommentsNot Currently0 (1 standard drink = 0.6 oz pure alcohol)pt reports no caffiene intakeEducationAnswerDate Recorded What is the highest level of school you have completed or the highest degree you have received?Master's degree (e.g., [employer], MS, Murtaza, MEd, MECHANICAL TECHNICAL SERVICE SPECIALIST, [employer])09/29/2022 CommentsNoSex and Gender InformationValueDate RecordedSex Assigned at BirthNot on fileLegal XfnHkthwj32/15/2023 7:21 PM EDTGender IdentityNot on file Sexual OrientationNot on fileOccupationIndustryJob Start DateJob End DateNot on fileNot on fileNot on fileNot on filedocumented as of this encounter Miscellaneous Notes * Telephone Encounter - Anya Man MA - 01/21/2025 2:01 PM EST Patient called stating she was seen on 12/25/2024 for breast pain and is now experiencing bilateralclear nipple discharge. Reports her recent mammogram was normal. Patient is unsure whether the symptoms are hormonal or indicative of another issue. Per MICHELE Mejia, patient instructed to obtain TSH and prolactin levels. Patient verbalized understanding. Labs were sent to [facility] and [facility] per patient request. documented in this encounter Plan of Treatment DateTypeDepartmentCare Team (Latest Contact Info)Wldxgntwqpt43/16/2025 2:00 PM ESTAncillary Procedure [facility] [address] [place] [address] 02/12/2025 10:00 AM ESTOffice Visit [facility] [address] [place] [address] Ruddy Mejia DO [address] [place] [address] 02/25/2025 3:20 PM ESTOffice Visit [facility] [address] [place] [address] Neha Sanchez PA [address] [place] [address] NameTypePriorityAssociated DiagnosesOrder ScheduleProlactinLabRoutine Nipple discharge Expected: 01/21/2025 (Approximate), Expires: 01/21/2026documented as of this encounter Goals GoalPatient Goal TypeAssociated ProblemsRecent ProgressPatient-Stated?Author Reminders Care PlanOB RemindersNoPurvi Davis, MAdocumented as of this encounter Visit Diagnoses Diagnosis Nipple discharge Other sign and symptom in breast documented in this encounter Additional Health Concerns Active ProblemsNoted DateDiagnosed DateOB Drhxukdka71/16/2025 documented as of this encounter Care Teams Team MemberRelationshipSpecialtyStart DateEnd Date John Pemberton MD [address] [place] [address] [place] [address] PCP - GeneralFamily Medicine09/30/22documented as of this encounter
--- OUTSIDE RECORDS SUMMARY | 2025-01-26 10:05 | XMS_ITS | Clinical Summary ---
Author Organization [facility] Address [address] [place], [place] [address] Care Team Providers Care Spray Painter Name Role Phone John Pemberton DO Primary Care Provider [phone] Reshma Kim RN Unavailable Unavailable John Pemberton DO Unavailable [phone] Allergies Active AllergyReactionsCriticalityNoted DateCommentsFluconazoleOther: See Rtpaxwqr22/31/2017 QT prolongation TahrvendjesMgpks97/31/1187PuoqsjgjohglWoor17/31/2617FaglnetmtTabkg12/28/2019 HfyhcimoJgkmnqvr48/31/1214JkrxynkfyeSyax04/31/3738JuxwmonghzafiFtsi30/31/2017 HbrwimikwdnvZmea23/31/2017 Medications MedicationSigDispense QuantityRefillsLast FilledStart DateEnd DateStatus Cholecalciferol, Vitamin D3, (VITAMIN D) 1,000 unit cap Take 5 capsules by mouth once daily. (CAN GET THE 5,000 IU AT [facility]) 11/17/2017Active vit/iron fum/folic ac ( VITAMIN ORAL) Take by mouth.Active UBIQUINONE ORAL Take by mouth.Active LORazepam (ATIVAN) 0.5 mg Take 0.25 mg by mouth two times a day as needed.Active iv contrast (will be provided with radiology test) MRI Brain Inject, intravenously, once for 1 dose.No IV access, insert saline lock prior to beginning of sedation, infusion, injection of imaging exam.Discontinue saline lock post exam. If Pt. has a central line or IVAD, may access for administration according to line specific nursing protocol.Once exam is complete flush line and de-access according to line specific nursing protocol in the MR contrast administration guidelines link 1 each 5Active iv contrast (will be provided with radiology test) MRI CSP Inject, intravenously, once for 1 dose. No IV access, insert saline lock prior to the beginning of sedation, infusion, injection of imaging exam. Discontinue saline lock post exam. If Pt. hasa central line or IVAD, may access for administration according to line specific nursing protocol. Once exam is complete flush line and de-access according to line specific nursing protocol in the MRcontrast administration guidelines link. 1 each tive Magnesium Oxide 500 mg cap Take 1 capsule by mouth once daily. 30 capsule 5Active meloxicam (MOBIC) 15 mg tablet Take 1 tablet by mouth once daily as needed for pain. 30 tablet 01/25/2025tive naratriptan (AMERGE) 2.5 mg tablet Take one at onset of severe headache/migraine may repeat x 1 after 4 hours if needed. Maximum 2/dayand 2 days/week. 9 tablet tive fludrocortisone (FLORINEF) 0.1 mg tablet Take 0.1 mg by mouth twice daily.01/25/2025Discontinued FLUoxetine (PROZAC) 20 mg capsule Take 20 mg by mouth once daily.01/25/2025Discontinued loratadine (CLARITIN) 10 mg tablet Take 1 tablet by mouth once daily as needed for Cold/Allergy Symptoms. 90 tablet 60Discontinued methylPREDNISolone (MEDROL) 16 mg tablet Take 1 tablet by mouth once daily. Take as directed 4 tablet Discontinued clomiPHENE (SEROPHENE) 50 mg tablet Indications:Encounter for fertility planningTake 3 tabs by mouth cycle day 5-9. 15 tablet 107Discontinued Active Problems No known active problems Encounters DateTypeDepartmentCare OojhTlqfbxeppif98/05/2025 11:30 AM ESTOffice Visit Neurology [address] [place] [address] Yang Colon, Dizziness (Primary Dx); Migraine without aura and without status migrainosus, not intractable; Saravia's reflex jihgvmyr28/22/2025Telephone Neurology [address] [place] [phone] Provider, Neurology Received Outside Medical Records (External referral to Neurological [place]/) from Last 3 Months Family History Medical HistoryRelationCommentsIschemic Heart DiseaseMaternal Grandfather DiabetesMaternal GrandmotherDiabetesPaternal GrandfatherRelationStatusComments Maternal GrandfatherMaternal GrandmotherPaternal Grandfather Social History Tobacco UseTypesPacks/DayYears UsedDateSmoking Tobacco: NeverSmokeless Tobacco: Never Tobacco Cessation:Counseling Given: Not Answered Alcohol UseStandard Drinks/WeekCommentsYes0 (1 standard drink = 0.6 oz pure alcohol)rareArea Deprivation IndexAnswerDate RecordedNational Score (1-100), lower number is lower kzub033701/25/2025State Score (1-10), lower number is lower dabe83703/28/2024Data from: https://www.neighborhoodatlas.[facility].edu/. Last address used for [address] [facility] [address]/25/2025CommentsNoSex and Gender InformationValueDate RecordedSex Assigned at BirthNot on fileLegal RbjRmfqxz31/04/2017 9:33 AM ESTGender IdentityNot on fileSexual OrientationNot on file Last Filed Vital Signs Vital SignReadingTime TakenCommentsBlood Fjceteyr955/7005 2:02 PM EDT Ismub8559 11:41 AM WDJIpllcgtrezx77.3 ??C (97.3 ??F)05/25/2018 10:46 AM EDTRespiratory Ttxs2687 11:41 AM EDTOxygen Sqdrrfzbfe225%05/25/2018 11:41 AM EDTInhaled Oxygen Concentration--Dazqoz50.5 kg (204 lb)07/07/2018 2:02 PM LAFQqlyzn627 cm (5' 8.5 )07/07/2018 2:02 PM EDTBody Mass Index30.5705 2:02 PM EDT Plan of Treatment DateTypeDepartmentCare Team (Latest Contact Info)Hkcdaucpqvr26/12/2026 4:00 PM ESTOT/PT/Speech Visit Physical Therapy [address] [place] [address] Miguel A Vides, PT [address] [place] [address] Dx: Dizziness [R42]; Migraine without aura and without status migrainosus, not intractable [G43.009]03/16/2025 8:20 AM [facility] [place] [address] [place] [address] Dx: Dizziness [R42]; Migraine without aura and without status migrainosus, not intractable [G43.009]03/16/2025 9:00 AM [facility] Radiology MRI [address] [place] [address] Dx: Dizziness [R42]; Migraine without aura and without status migrainosus, not intractable [G43.009]09/27/2025 10:30 AM EDTOffice Visit Neurology [address] [place] [address] [place] [address] [place] [address] return in 6 monthsHealth MaintenanceDue DateLast DoneCommentsAnxiety Screening 2009Depression Toghiglgl66/27/2010HIV Aroynheuo93/27/2010Hepatitis B Vaccine (1 of 3 - 19+ 3-dose series)2010Cervical Cancer Screening 2012HPV Vaccine (1 - 3-dose SCDM series)2018Covid-19 Vaccine ( - 2024- season)2024Influenza Vaccine (#1)2024DTaP,Tdap,Td Vaccine (2 - Td or Tdap)Hepatitis C YqxpifesrXynqbafcq26/26/[address] [place] [address] MemberSubscriberPlan / Payer (Effective 2022-Present)Name:Jessica Valdez Relation to Subscriber:SelfName:Jessica Valdez Payer ID:Not on file Type:PPO Address: [place] [id number] Care Teams Team MemberRelationshipSpecialtyStart DateEnd Date John Pemberton, [address] [place] [address] PCP - GeneralFamily Medicine02/25/16 Reshma Kim, JAYNA Registered NurseReproductive Endocrinology04/26/18 John Pemberton DO [address] [facility] [place] [address] NI Referring TeamFamily Medicine11/16/24
--- OUTSIDE RECORDS SUMMARY | 2025-01-26 10:05 | XMS_ITS | Clinical Summary ---
Author Organization [facility] Address [address] [place] [address] Phone Care Team Providers Care Lawn Specialist Name Role Phone GriceldaJohn wood William CANELA Primary Care Provider [phone] Allergies Active AllergyReactionsCriticalityNoted VrlvFwvyvuzqUamsnesfvcrNrzhceq59/22/2023 Amoxicillin-Pot VjanvryagmsHxedf88/22/8590GmsfehhicvesEiiul89/22/2023efaclor Hives6531SmkrpmbxFuhpt12/22/5693WaqsfdbrsPmycAqs67/10/2023 Other Reaction(s): rashes Dextromethorphan GuvJorpKon93/10/2023 Other Reaction(s): rashes OxwzylbqpuuNmzikjq77/22/0046GivupsxsbrhsOgozXuk91/31/2017FluconazoleOther 05/21/2016 Other Reaction(s): Other: See Comments Other reaction(s): Other: See Comments QT prolongation QT prolongation Other reaction(s): Other: See Comments QT prolongation QT prolongation HrmulgrrbdmGiyhMjp79/10/2023 Other Reaction(s): rashes OvpautpvdYklwc14/28/7904EssrcmrxviBvbuXps98/31/2017Penicillin OJptuKfq80/31/2017 McjctxdxzbzzgrhOxwcOig43/10/2023 Other Reaction(s): rashes Pseudoephedrine-YofybcsvuJnwcn28/22/2023Sulfa (Sulfonamide Antibiotics)Hives 12/12/2022Sulfamethoxazole-BqveqrevsplgRmjhoxs16/22/2023TetracyclineHives 09/30/2022 Other Reaction(s): hives Medications MedicationSigDispense QuantityRefillsLast FilledStart DateEnd DateStatus buPROPion SR (Wellbutrin SR) 100 mg 12 hr tablet Indications:Moderate episode of recurrent major depressive disordertake 1 tablet by mouth twice a day (DON'T CRUSH) 30 tablet 12/30/2022ctive pantoprazole (ProtoNix) 40 mg EC tablet Take 1 tablet (40 mg) by mouth early in the morning..12/12/2024tive nebivolol (Bystolic) 2.5 mg tablet Indications:Neurocardiogenic pre-syncope,PalpitationsTake one tablet as needed for palpitations. Do not exceed 24 hr 15 tablet 10:58 AM EST12/31/2024tive Active Problems ProblemNoted DateDiagnosed QuemNbjzhzufmcvu81/10/2025MI 32.0-32.9,adult 12/30/2023Never smoked jfnnefx1912/30/2023nxiety and adcugishvt28/22/2023 Aiypeivwfdvw20/22/2193Yzfvppcnhejgm38/22/2023Female rrbysmdohpl48/22/2023 Neurocardiogenic pre-asnrupl0912/12/2022elvic floor rngcybcduiu57/22/2023elvic floor flougik6912/12/2022lass 1 obesity with body mass index (BMI) of 30.0 to 30.9 in adult12/12/20223245Ojzjocyhqmd85/22/5051Olarhikawqh54/19/2023Migraine 12/09/2022Vertigo of central tfqlwt9912/09/2022 Encounters DateTypeDepartmentCare SwpuOoskvubczmt81/10/2025 2:30 PM ESTOffice [address] [address] Ariel Owens MD Neurocardiogenic pre-syncope (Primary Dx); Hypotension, unspecified hypotension type; Palpitations; BMI 32.0-32.9,adult; Never smoked tobacco; Obesity, Class I, BMI 30-34.9; Anxiety disorder, unspecified type Discharge Disposition: Home12/31/20249094Eggobe35/07/2025Results Follow-Up [address] [address] Ariel Owens MD Holter Or Event Cardiac Zsouewy3812/26/2024 8:00 AM ESTAncillary Procedure [address] [address] Chest pressure; Palpitations Discharge Disposition: Home12/26/20244279Zjdyif07/25/2025Scanned Document [facility] [address] [place] [address] Scanning, Generic Provider from Last 3 Months Immunizations ImmunizationAdministration DatesNext DueTdap vaccine, age 7 year and older (BOOSTRIX, ADACEL)05/19/2021 Family History Medical HistoryRelationNameCommentsDiabetesOther 1Colon cancerOther 2Transient ischemic attackOther 2cabgOther 2RelationNameStatusCommentsOther 1Grandparent Other 2Grandmother Social History Tobacco UseTypesPacks/DayYears UsedDateSmoking Tobacco: NeverSmokeless Tobacco: NeverAlcohol UseStandard Drinks/WeekCommentsNever0 (1 standard drink = 0.6 oz pure alcohol)CommentsUnknownSex and Gender InformationValueDate Recorded Sex Assigned at BirthNot on fileLegal AtpNzubcu52/25/2022 1:39 PM ESTGender IdentityNot on fileSexual OrientationNot on file Last Filed Vital Signs Vital SignReadingTime TakenCommentsBlood Fwppuxlx377/6411 2:35 PM EST Cbnvs709712/31/2024 2:35 PM ESTTemperature--Respiratory Rate--Oxygen Saturation-- Inhaled Oxygen Concentration--Ymmzjh71.3 kg (219 lb)12/31/2024 2:35 PM ESTHeight 175.3 cm (5' 9 )12/31/2024 2:35 PM ESTBody Mass Index32.34103/02/2024 2:35 PM EST Plan of Treatment DateTypeDepartmentCare Team (Latest Contact Info)Ordziejoiqp03/11/2026 3:40 PM ESTOffice Visit [address] [address] Ariel Owens MD [address] [place] [address] [address] [place] [address] Health MaintenanceDue DateLast DoneCommentsHIV Zkiosbzpw17/27/1992Lipid Panel 1991MMR Vaccines (1 of 1 - Standard series)1992Hepatitis C Screening 2009Hepatitis B Vaccines (1 of 3 - 19+ 3-dose series)2010Cervical Cancer Ovispqwpd05/27/2013HPV/Medlit0203/19/2012Pap Smear2012HPV Vaccines (1 - 3-dose standard series)2018Influenza Vaccine (#1)2024early Adult Hqhglgjn34/30//, 09/30/2022, 3COVID-19 Vaccine (1 - season)2024DTaP/Tdap/Td Vaccines (2 - Td or Tdap)/ Zoster Vaccines (1 of 2)2041HIB VaccinesAged OutNo longer eligible based on patient's age to complete this topicHepatitis A VaccinesAged OutNo longer eligible based on patient's age to complete this topicIPV VaccinesAged OutNo longer eligible based on patient's age to complete this topicMeningococcal VaccineAged OutNo longer eligible based on patient's age to complete this topic Pneumococcal Vaccine: Pediatrics and At-Risk Adult PatientsAged OutNo longer eligible based on patient's age to complete this topicRotavirus VaccinesAged Out No longer eligible based on patient's age to complete this topic Procedures Procedure NamePriorityDate/TimeAssociated DiagnosisCommentsHOLTER MONITOR 24-48 HOURS - BUSINESS ANALYST ECOMMERCE, ANALYZED, AND PHYSICIAN GCTIKmeauvi31/05/2025 8:23 AM EST Chest pressure Palpitations from Last 3 Months Results * HOLTER MONITOR 24-48 HOURS - BUSINESS ANALYST [employer], ANALYZED, AND PHYSICIAN READ (12/26/2024 8:23 AM EST)Specimen (Source)Anatomical Location / LateralityCollection Method / VolumeCollection TimeReceived Time Narrative CPACS - 12/28/2024 5:10 PM EST 1-the rhythm was sinus throughout the recording average heart rate 88 bpm, minimum heart rate was 53 bpm sinus bradycardia at 4:36 AM and the maximal heart rate was 143 bpm sinus tachycardia at 7:20 PM 2-no ventricular arrhythmias were seen 3-rare isolated PACs were noted, there was 79 beats in 48 hours with a single 7 beat run of atrial tachycardia at a rate 124 bpm at 2:09 AM which was not symptomatic 4-no pauses exceeding 2 seconds were seen 5-patient diary had numerous entries for multitude of complaints including chest pain, headache, palpitations, dizziness, shortness of breath, none of this was associated with cardiac arrhythmias Conclusion: Unremarkable 48-hour Holter monitor that demonstrated normal sinus rhythm mechanism throughout average heart rate normal at 88 bpm, no ventricular arrhythmias, rare isolated PACs and a single run of atrial tachycardia for 7 beats at 1124 bpm while patient was asleep and was asymptomatic. ?? Multitude of complaints reported patient's diary were not associated with any cardiac arrhythmias Authorizing ProviderResult TypeResult StatusAriel Owens [facility] PROCEDURESFinal ResultPerforming OrganizationAddressCity/State/ZIP Code Phone Number CPACS from Last 3 Months Insurance Care Teams Team MemberRelationshipSpecialtyStart DateEnd Date John Pemberton DO [address] [place] [address] [facility] - [facility] Huzoahyf30/5/25
[2025-01-26 10:59] LABS: Hematocrit 42.2 % (36.0-48.0); Hemoglobin 13.6 g/dL (12.0-16.0); Immature Granulocytes Abs Auto 0.01 10^3/uL (0.00-0.03); Immature Granulocytes Pct Auto 0.2 % (0.0-0.5); Lymphocytes Absolute Auto 2.1 10^3/uL (1.2-3.8); Mean Corpuscular HGB Conc 32.2 g/dL (29.9-35.2); Mean Corpuscular Hemoglobin 29.4 pg (26.7-34.0); Mean Corpuscular Volume 91.3 fL (81.0-99.0); Platelet Count 291 10^3/uL (150-450); Red Blood Count 4.62 10^6/uL (4.20-5.40); White Blood Count 6.3 10^3/uL (4.0-11.0)
[2025-01-26 11:30] LABS: Thyroid Stimulating Hormone 1.946 uIU/mL (0.358-3.740)
[2025-01-27 07:07] LABS: FSH 10.5 mIU/mL (.)
== END 2025-01-26 10:00 | disposition home or self-care (01) ==
LOC: LAB 10:01
PROVIDERS: PCP Family Medicine; Visit Provider Physician Assistant
DX: N64.52 Nipple discharge (principal); E28.2 Polycystic ovarian syndrome; N93.9 Abnormal uterine and vaginal bleeding, unspecified
CPT/HCPCS: 36415; 82397; 82626; 82627; 83001; 83002; 83036; 84146; 84439; 84443; 84702; 85025

== ENCOUNTER 2025-02-07 16:53 | Outpatient (OUT) | payer OTHER, SELFPAY ==
--- OUTSIDE RECORDS SUMMARY | 2025-01-25 11:30 | XMS_ITS | Encounter Summary ---
Author Organization [facility] Address [address] [place], [place] [address] Care Team Providers Care Ui Designer Name Role Phone John Pemberton DO Primary Care Provider [phone] Reshma Kim RN Unavailable Unavailable John Pemberton DO Unavailable [phone] Source Comments In the event this information is protected by the Federal Confidentiality of Alcohol and Drug AbusePatient Records regulations: The Federal rules restrict any use of the information to criminally investigate or prosecute any alcohol or drug abuse patient.[facility] Reason for Referral * MRI/CT (Routine) - AuthorizedSpecialtyDiagnoses / ProceduresReferred By ContactReferred To ContactMR IMAGING Diagnoses Dizziness Migraine without aura and without status migrainosus, not intractable Procedures MRI CERVICAL SPINE WO/W IVCON MRI SPINAL CANAL CERVICAL W/O & [place] [address] [place] [address] Phone: tel: fax: [place] [address] Referral IDStatusReasonStart DateExpiration DateVisits RequestedVisits [id number] Auto-Generated Referral * MRI/CT (Routine) - AuthorizedSpecialtyDiagnoses / ProceduresReferred By ContactReferred To ContactMR IMAGING Diagnoses Dizziness Migraine without aura and without status migrainosus, not intractable Procedures MRI BRAIN WO/W IVCON MRI BRAIN BRAIN STEM W/O W/[place] [address] [place] [address] Phone: tel: fax: [place] [address] Referral [facility]Status[facility] DateExpiration DateVisits RequestedVisits [id number] Auto-Generated Referral * Physical Therapy/Occupational Therapy (Routine) - AuthorizedSpecialtyDiagnoses / ProceduresReferred By ContactReferred To ContactREHAB AND SPORTS THERAPY INS Diagnoses Dizziness Migraine without aura and without status migrainosus, not intractable Procedures PHYSICAL THERAPY EVALUATION HIGH COMPLEX 45 MINS THERAPEUTIC EXERCISES RE, EA 15 [place] [address] [place] [address] Phone: tel: fax: [facility] [address] [place] [address] Referral IDStatusLissetasonDowney DateExpiration DateVisits RequestedVisits [id number] Auto-Generated Referral 040 Scheduling Instructions For an appointment call: [place] [facility]: [phone]. [facility] Therapy: [phone], Option 1. [facility] Rehabilitation [facility] Therapy: [phone] [facility] Rehabilitation and Sports Therapy: [phone] [facility]: [phone] [facility]) ADULTS - For an appointment call: [place], [place]: [phone] ([address] [facility]) [place], [place]: [phone] ([address]) or [phone] ([address]) [place], [place]: [phone] ([address]) or [phone] ([address] [facility], [address]) or [phone] ([address] [facility]) PEDIATRICS - For an appointment call: [place], [place]: [phone] ([address] [facility]) The disbursing agent will assist you in selecting the location and specialty service that will bestmeet your needs. For a list of sites and services: [email or web address] Order Date: January 25, 2025 Ordering Physician: Yang Colon DO (Signed Electronically in [facility]) Reason for Visit * ReasonCommentsNew Patient Encounter Details DateTypeDepartmentCare Team (Latest Contact Info)Tquipwgivkm10/05/2025 11:30 AM ESTOffice Visit Neurology [address] [place] [address] [place] [address] [place] [address] Dizziness (Primary Dx); Migraine without aura and without status migrainosus, not intractable; Saravia's reflex positive Social History Tobacco UseTypesPacks/DayYears UsedDateSmoking Tobacco: NeverSmokeless Tobacco: Never Tobacco Cessation:Counseling Given: Not Answered Alcohol UseStandard Drinks/WeekCommentsYes0 (1 standard drink = 0.6 oz pure alcohol)rareArea Deprivation IndexAnswerDate RecordedNational Score (1-100), lower number is lower baol096301/25/2025State Score (1-10), lower number is lower trwj44003/28/2024Data from: https://www.neighborhoodatlas.medicine.[facility]/. Last address used for [address] [facility] [place] [address]NoSex and Gender InformationValueDate RecordedSex Assigned at BirthNot on fileLegal RaeIeixbw66/04/2017 9:33 AM ESTGender IdentityNot on fileSexual OrientationNot on filedocumented as of this encounter Progress Notes * Yang Colon, DO - 01/25/2025 11:25 AM EST [facility] Neurologic [place] New Patient Consultation January 25, 2025 HPI: [...] daily. (CAN GET THE 5,000 IU AT [place]) loratadine (CLARITIN) 10 mg tablet Take 1 [...] Plan of Treatment DateTypeDepartmentCare Team (Latest Contact Info)Rlgegoruocf02/12/2026 4:00 PM ESTOT/PT/Speech Visit Physical Therapy [address] [facility] [address] [facility] [place] [address] Miguel A Vides, PT [address] [facility] [address] Dx: Dizziness [R42]; Migraine without aura and without status migrainosus, not intractable [G43.009]03/16/2025 8:[address] [facility] Radiology [place] [address] [place] [address] MRI BRAIN WO/W IVCON03/16/2025 9:[address] [facility] [place]iology [place] [address] [place] [address] MRI CERVICAL SPINE WO/W IVCON09/27/2025 10:30 AM EDTOffice Visit Neurology [address] [place] [address] [place] [address] [place] [address] return in 6 monthsNameTypePriorityAssociated DiagnosesOrder ScheduleMRI BRAIN [...] Care Teams Team MemberRelationshipSpecialtyStart DateEnd Date John Pemberton, [address] [place] [id number] PCP - GeneralFamily Medicine02/25/16 Reshma Kim, RN Registered NurseReproductive Endocrinology04/26/18 John Pemberton, DO [address] [place] [address] [place] Referring TeamFamily Medicine11/16/24documented as of this encounter
--- OUTSIDE RECORDS SUMMARY | 2025-02-04 19:43 | XMS_ITS | Continuity of Care Document ---
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 Phone John Pemberton DO Primary Care Provider John Pemberton DO Attending Provider [phone] Merari Vargas PA-C Attending Provider Care Teams Patient Care Team Team Status: Active Member Role/Relationship Status Dates John Pemberton DO Primary Care Provider Active Visit Care Team Team Status: Inactive Member Role/Relationship Status Dates John ePmberton DO Primary Care Provider Active S tart: November 15, 2024 End: November 15, 2024Daleón Pemberton DOAttending ProviderActiveStart: November 15, 2024 End: November 15, 2024 Visit Care Team Team Status: Inactive Member Role/Relationship Status Dates John Pemberton DO Primary Care Provider Active S tart: December 12, 2024 End: December 12, 2024Daleón Pemberton DOAttending ProviderActiveStart: December 12, 2024 End: December 12, 2024 Visit Care Team Team Status: Inactive Member Role/Relationship Status Dates John Pemberton DO Primary Care Provider Active S tart: January 07, 2025 End: January 07Jyoti Pickering ProviderActiveStart: January 07, 2025 End: January 07, 2025 Patient Care Team Team Status: Active Member Role/Relationship Status Dates John Pemberton DO Primary Care Provider Active S tart: January 26, 2025 MIHCELE Jo-Leydi ProviderActiveStart: January 26, 2025 Patient Care Team Team Status: Inactive Member Role/Relationship Status Dates John DO Nilay Primary Care Provider Active S tart: February 04, 2025 End: February 04MICHELE Pickering-Juan [facility] ProviderActiveStart: February 04, 2025 End: February 04, 2025 Chief Complaint and Reason for Visit Chief Complaint Admit Date R73.9 D64.9 R53.83 R00.2 November 15, 2024 7:04am abd pains December 12, 2024 9 :54am N64.4 January 07, 2025 7:38am N64.52 E28.2 N93.9 February 04, 2025 12:35pm Reason for Visit Admit Date Abdominal pain December 12, 2024 9 :54am Anxiety December 12, 2024 9 :54am Nausea December 12, 2024 9 :54am Allergies, Adverse Reactions, Alerts Allergen Type Severity Reaction Last Updated Verified Status fluoxetine Allergy Severe serotonin syndrome December 12, 2024 8:52am Yes Active amoxicillin Allergy Unknown Rash December 12, 2024 8:52am Yes Active azithromycin Allergy Unknown Rash December 12, 2024 8:52am Yes Active cefdinir Allergy Unknown Rash December 12, 2024 8:52am Yes Active cefuroxime Allergy Unknown rash December 12, 2024 8:52am Yes Active doxycycline Allergy Unknown finger swelling , joints swollen December 12, 2024 8:52am Yes Active erythromycin base Allergy Unknown rash December 12, 2024 8:52am Yes Active fluconazole Allergy Unknown QT Prolongation December 12, 2024 8:52am Yes Active sulfacetamide Allergy Unknown rash December 12, 2024 8:52am Yes Active ibuprofen Adverse Reaction Unknown Rash December 12, 2024 8:52am Yes Active Penicillins Adverse Reaction Unknown Rash December 12, 2024 8:52am Yes Active sulfamethoxazole Adverse Reaction Unknown Rash December 12, 2024 8:52am Yes Active trimethoprim Adverse Reaction Unknown Rash December 12, 2024 8:52am Yes Active Social History Smoking Status Status Start Date End Date Date of Observa tion Never smoked tobacco (finding) November 05, 2024 3:38pm Observation Status Observation Response Date of Response Legal Sex Female (finding) [facility] Family History Relationship Condition Age at Onset Recorded Date/T maco grandparent Unknown grandparentDeceasedUnknownDiabetes mellitusUnknownHeart diseaseUnknown grandparentDiabetes mellitusUnknowngrandparentFamily history of mental disorder UnknownAlzheimer's dementiaUnknownmotherDiverticulitisUnknown Problems Active Problems Problem Diagnosis/Recorded Date Onset Date Stat us 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 24, 2024 11:53am Unknown Active PMDD (premenstrual dysphoric disorder) November 22 1:15pm Unknown Active Insomnia May 07, 2024 3:09pm Unknown Acti ve Dyspnea on exertion May 07, 2024 2:57pm Unknown Active delivery delivered June 20, 2021 7:57am Un known Active Fatigue November 05, 2024 3:03pm Unknown Active Palpitation November 05, 2024 3:03pm Unknown Active Dizziness April 18, 2024 11:17am Unknown Active Acute sinusitis June 27, 2023 2:23pm Unknown Acti ve Anemia November 05, 2024 3:02pm Unknown Active Anxiety June 27, 2023 12:44pm Unknown Active Cough June 27, 2023 2:23pm Unknown Active Dysuria February 04, 2025 10:11am Unknown Active Hyperglycemia November 05, 2024 3:06pm Unknown Active Kidney stone July 24, 2024 11:54am Unknown Activ e Cervical lymphadenopathy June 27, 2023 2:26pm Unknown Active Restless leg syndrome May 07, 2024 3:12pm Unknown Active S/P June 22, 2021 11:27am Unknown Activ e Weight gain June 27, 2023 2:28pm Unknown Active Iron deficiency anemia June 27, 2023 12:44pm Unknown Active First trimester bleeding June 26, 2017 10:29am Unknown Active Acute nasopharyngitis April 05, 2024 3:00pm Unkno wn Active Nausea & vomiting February 15, 2019 2:01pm Unknown Active Abdominal pain February 15, 2019 2:01pm Unknown Active Nausea December 12, 2024 9:17am Unknown Ac tive Acute left lower quadrant pain June 26, 2017 10:29am U nknown Active Medications Medication Status Dose Units Route Directions Qty Days Refills S tart Date Stop Date End Date Reason(s) Instructions Adherence Prednisone 20 mg tablet Discontinued 0 EZSamxx6839Moffy 2023 12:00amMarch 2023 4:30pm20 MG 3 a day x3 days, then take 2 a day x3 days and then 1 a day x3 days with food or milk. orally daily;Prednisone 20 mg ehihhhLkulcnspqgme3FGZdhws9963Dcrzn 2023 4:30pmMay 2023 2:00pm20 MG 3 a day x3 days, then take 2 a day x3 days and then 1 a day x3 days with food or milk. orallydaily;Sertraline (Zoloft) 25 mg tablet Eunjbfbsqobq60FIYYAcxys500Rhrufdj 2023 11:00pmOctober 2023 2:11pm Sertraline (Zoloft) 25 mg evwqcrGopgmaghbjoe89VGFOOckik424Uhtkrmo 2023 2:11pmDecemb 2023 11:51amSertraline (Zoloft) 25 mg vofunxMacpxzvzhepr2PK Xzuwf25204Dqrbzmue 2023 11:50amFebruary 2024 11:10amtake 1/2 of a 25 MG tablet orally daily;Penicillin V Potassium 500 mg pwkmayOcqllywknxnl019AIKF Three times vfuxy58380Wurlutjy2023 9:55amFebruary 2024 11:09am Penicillin V Potassium 500 mg mbypfwHlcsnaezgpqa680KMPFGxyfa times pffpf54521 May 04, 2024 8:30amApril 2024 12:45pmPenicillin V Potassium 500 mg qdwwhvLluorsgxwzwx888KGFWRmygf times lprkm4347Pyits 2024 12:45pmJune 2024 11:46amMecobalamin (Vitamin B12) 1,000 mcg tablet,zlulgszfQihwiy8280NHNWL .MEMRCOH59Kajxxetfj 2024 11:00pm1,000 mcg orally 2 days a week;Unknown Lorazepam (Ativan) 0.5 mg tabletActive0.5MGPOTwice daily as needed for psyxfcx93 70October 2024 7:59amAnxiety Anxiety disorder, unspecifiedUnknownNitrofurantoin Monohyd/M-Cryst (Macrobid) 100 mg edowdxgTpmfxc057AJCVAxlmo cahxr8007Jcobnfog 15th, 2025 12:00ammust administer with a meal/foodUnknownFludrocortisone 0.1 mg tabletDiscontinued0.1MG POTwice dailyJune 25, 2017 11:00pmMay 2023 2:00pmLoratadine (Claritin) 10 mg BwrsunAgqfewvegjke74JJKFWajggJhf 2017 11:00pmMay 2023 2:00pmPnv No.95-Ferrous Fumarate-Fa () 28 mg iron- 800 mcg LclyboAywebblmcaqv3XVQ PODailyMay 2017 11:00pmFebruary 2024 11:09amProgesterone 50 mg/mL Oil Fywbwkroabku8VFZBWz DirectedFebruary 15, 2019 12:00amMay 2021 9:30amEVERY OTHER DAYProgesterone Micronized 200 mg ZelcrxkTifainlplbik523EOMDZwhzo at bedtime2018 12:00amMay 2021 9:30amEstradiol 2 mg Tablet Ukbojgzoysag8QIVSQfivi daily2018 12:00amMay 2021 9:30amNOT PO....INSERT PILL VAGINALLYProgesterone Micronized (Endometrin) 100 mg Insert Gpetdrbdlgdw458ARPHUCAZMVzfkj times daily2018 12:00amMay 2021 9:30amOndansetron 4 mg tablet,gwlozdqglqfbjcIopcrfdoucqv2YPOFZ6N as needed for nausea and srtdekmd611Dhfwcudo 26th, 2019 12:00amMay 2021 9:30am Sertraline (Zoloft) 100 mg XhzuzzHsxehcqujslx422JVKOPvevvJlwof 2021 11:00pmMa2023 2:03pmBupropion Hcl (Wellbutrin Xl) 150 mg Tablet Extended Release 24 LzNntyjqwmarud865LVDEGclju morningApril 2021 11:00pmMay 2023 1:59pmIbuprofen 600 mg zyrrrgCssfnafqdwsv309CRUJX2R as needed for sxzv076 June 21, 2021 11:00pmMay 2023 2:00pmDocusate Sodium (Colace) 100 mg capsule Ufzzubiqiyuq212JNFNPtfqz daily as needed for tfgxueangbig788Njb 2nd, 2022 9:29am June 27, 2023 1:59pmTramadol 50 mg ucggfsWsrohshlanxl92WSZJV4P as needed for qjrc6740Lqd2021 11:00pmMay 2023 2:01pmStatus post delivery History of uterine scar from previous surgerySertraline (Zoloft) 100 mg tablet Sifjvsuntqik04QUMPCyfbvZym 2023 1:59pmMay 2023 2:04pmSertraline (Zoloft) 50 mg rilzemZfshnynlxppz56FCEJRbn 2023 11:00pmOctober 2023 12:46pm1 and 1/2 tablet Orally Once a day;Fluticasone Propionate 50 mcg/actuation spray,svkspiahciOfrhqhmodiaw7OXXCHXFQCDASGTNTbjocWbl 2023 11:00pmOctober 2023 12:46pmFreeTextSi sprays each nostril Nasally Once a day; Note: Source Status: Refill; Refills: 11; Provider: Nilay Thomas Penicillin V Potassium 500 mg niqfdbNjytjoqpkifu581EKPHMpklj times vntrq26430Gte 5th, 2024 11:00pmOctober 2023 12:45pmFluticasone Propionate 50 mcg/actuation spray,gdniioqnuoPbiunh5VBYMKAUVTXREQWDGmzkzErjoqsy 2023 12:45pmFUnknownSertraline (Zoloft) 50 mg yuwottQzcrttgnxpmo74HCTNOgfloJbrypum 2023 12:45pmOctober 2023 10:20amDigestive Enzymes vvyarijKojjdy3AJOFS DailyOctober 2024 11:00pmadminister with food; swallow whole; do not crush/chew/dissolve/break/cutUnknownPantoprazole 40 mg tablet,delayed release (DR/EC)Lqifva38ORWEYpcbj808Gxvvosi 2024 11:00pmtake 15 min prior to a meal UnknownLorazepam (Ativan) 0.5 mg tabletDiscontinued0.5MGPOTwice daily as needed for mvsgqfw2337Oprpowby 2024 12:00amOctober 2024 7:59amAnxiety Anxiety disorder, unspecified Procedures Procedure Date Performed Status MM diagnostic mammo BI w/CAD January 07, 2025 7:39am completed Urine Culture February 04, 2025 active Relevant Diagnostic Tests and/or Laboratory Data Laboratory Results Test Collection Date/Time Result Date/Time Result Interpretation Reference Range Result Comment Performing Site Dehydroepiandrosterone (DHEA) January 262024 10:19am January 26, 2025 10:19am 379 ng/dL -1This test was developed and its performance characteristicsdetermined by [employer]. It has not been cleared orapproved by the Food and Drug Administration.Performed at: [address] [id number] Director: Merlyn Sanders MD, Phone: [phone]-Qroattpuv HormoneDecember 2024 10:19amDecember 2024 10:19am0.206 ng/mL.For assays employing antibodies, the possibility exists forinterference by heterophile antibodies in the samples.11.Kasandra Mukherjee Interferences in Immunoassays - still a threat. Clin. Chem. 2000; 46: 1736-4625.This test was developed and its performance characteristicsdetermined by [facility]. It has not been cleared or approvedby the Food and Drug Administration.Reference Range:Females 31 - 35y: 0.66 -8.75Median 3.00AMH concentrations of >= 1.06 ng/mL is correlated with abetter response to ovarian stimulation, produced moreretrievable oocytes and higher odds of live accordingto Hossein et al. Fertility and Sterility. 2010:94:6561-8412. The current AMH test method correlates withthe study method with a slope of 0.94.Females at risk of ovarian hyperstimulation syndrome orpolycystic ovarian syndrome (PCOS) may exhibit elevatedserum AMH concentrations. AMH levels from PCOS patientsmay be 2 to 5 fold higher than age- appropriate referenceinterval values.Granulosa cell tumors of the ovary may secrete AMH alongwith other tumor markers. Elevated AMH is not specific formalignancy, and the assay should not be used exclusively todiagnose or exclude an AMH-secreting ovarian tumor.Performed at: [facility] [id number] [place], [place] [id number] Director: Claudia Negron MD, Phone: [phone] 2024 10:19amDecember 2024 10:19am9.6 ng/mL 4.8-33.4Performed at: - [facility] [address] [place], [place] [id number] Director: Isaiah Fitzpatrick PhD, Phone: [phone] Stimulating HormoneDecember 2024 10:19amDecember 2024 10:19am10.5 mIU/mL.Adult Female Range Follicular phase 3.5 - 12.5 Ovulation phase 4.7 - 21.5 Luteal phase 1.7 - 7.7 Postmenopausal 25.8 - 134.8Luteinizing HormoneDecember 2024 10:19amDecember 2024 10:19am9.4 mIU/mL.Adult Female Range Follicular phase 2.4 - 12.6 Ovulation phase 14.0 - 95.6 Luteal phase 1.0 - 11.4 Postmenopausal 7.7 - 58.5Dehydroepiandrosterone SulfateDece2024 10:19amDecember 2024 10:29qh786.0 ug/dL84.8-378.0Estimated Average Glucose January 26, 2025 10:19amDecember 2024 10:47ce806 mg/dLHuman Chorionic Gonadotropin, QuantDecemb2024 10:19amDecember 2024 10:19am<1 mIU/mL 5-50 0.2-1 PRCP90-899 1-2 LXBDY703-2,000 2-3 JYXFV817-24,000 3-4 WEEKS1,000- 50,000 4-5 WEEKS10,000-100,000 5-6 WEEKS15,000-200,000 6-8 WEEKS10,000-100,000 2-3 MONTHSThyroid Stimulating Hormone 3rd GenDecember 2024 10:19amDecember 2024 10:19am1.946 u[iU]/mL0.358-3.740Free ThyroxineDece2024 10:19amDecember 2024 10:19am0.95 ng/dL0.76-1.46Basophils # (Auto)January 26, 2025 10:19amDecember 2024 10:19am0.0 10 3/uL0.0-0.1Hemoglobin A1c January 26, 2025 10:19amDecember 2024 10:19am5.3 %4.5-6.2ADA RECOMMENDED LIMIT 4.0 - 6.0ADA THERAPEUTIC TARGET < 7.0ACTION SUGGESTED> 7.0Basophils (%) (Auto)January 26, 2025 10:19amDecember 2024 10:19am0.6 %0.2-2.0 Eosinophils # (Auto)January 26, 2025 10:19amDecember 2024 10:19am0.1 10 3/uL0.0-0.7Eosinophils (%) (Auto)January 26, 2025 10:19amDecember 2024 10:19am1.1 %0.9-7.0HematocritDecember 2024 10:19amDecember 2024 10:19am42.2 %36.0-48.0HemoglobinDeceer 2024 10:19amDecember 2024 10:19am13.6 g/dL12.0-16.0Immature Granulocyte # (Auto)January 26, 2025 10:19am January 26, 2025 10:19am0.01 10 3/uL0.00-0.03Immature Granulocyte % (Auto) January 26, 2025 10:19amDecember 2024 10:19am0.2 %0.0-0.5Lymphocytes # (Auto)January 26, 2025 10:19amDecember 2024 10:19am2.1 10 3/uL1.2-3.8 Lymphocytes (%) (Auto)January 26, 2025 10:19amDecember 2024 10:19am32.8 % 20.5-60.0Mean Corpuscular HemoglobinDecemb2024 10:amDecember 2024 10:19am29.4 pg26.7-34.0Mean Corpuscular Hemoglobin ConcentJanuary 26, 2025 10:19amDecember 2024 10:19am32.2 g/dL29.9-35.2Mean Corpuscular Volume January 26, 2025 10:amDecember 2024 10:19am91.3 fL81.0-99.0Monocytes # (Auto)January 26, 2025 10:amcember 2024 10:19am0.4 10 3/uL0.3-0.8 Monocytes (%) (Auto)January 26, 2025 10:amDecember 2024 10:19am6.1 % 1.7-12.0Mean Platelet VolumeDece2024 10:amDece2024 10:19am 9.6 fL9.5-13.5Neutrophils # (Auto)January 26, 2025 10:amcemb2024 10:19am3.7 10 3/uL1.4-6.5Neutrophils (%) (Auto)January 26, 2025 10:19am January 26, 2025 10:19am59.2 %43.0-75.0Platelet CountDece2024 10:19amDecember 2024 10:48gk314 10 3/nU375-905Jlz Blood CountDe2024 10:19amDecemb2024 10:19am4.62 10 6/uL4.20-5.40Red Cell Distribution WidthJanuary 26, 2025 10:19amDecember 2024 10:19am11.9 %11.0-15.0 Corrected White Blood CountDember 2024 10:19amDecember 2024 10:19am 6.3 10 3/uL4.0-11.0Corrected White Blood CountSeptember 2024 6:06am November 15, 2024 4:06pm7.3 10*3/uL3.8-11.6F[facility] [id number] [address] [facility] [address]Thyisnysqle WBC CountSeptember 2024 6:06amSeptember 2024 4:06pm7.3 10*3/uL3.8-11.6FReg[facility] [id number] [address] [facility] [address]Mon Blood CountSeptember 2024 6:06amSeptember 2024 4:06pm4.51 10*6/uL3.60-5.00[facility] [id number] [address] [facility] [address]PngxncuunlBsvozvqic 2024 6:06amSept2024 4:06pm13.5 g/dL11.8-15.4FReg[facility] [id number] [address] [place] [address]852WxenmwmhnySmbsgwgqq 2024 6:06amSept2024 4:06pm40.6 %34.0-46.4FReg[facility] [id number] [address] [facility] [address]Qkno Corpuscular VolumeSeptember 2024 6:06amSept2024 4:06pm90.0 cY87-045VhhtkohrxHarrison Community Hospital [facility]tr [id number] [address] [facility] [address]Ofwu Corpuscular HemoglobinSeptember 2024 6:06amSeptember 2024 4:06pm29.9 pg24.7-34.3FReg[facility] [id number] [address] [facility] 10387Xfxy Corpuscular Hemoglobin ConcentSeptember 2024 6:06am November 15, 2024 4:06pm33.2 g/dL32.0-35.0[facility] [id number] [address] [facility] 116[address]Vra Cell Distribution WidthSept2024 6:06amSept2024 4:06pm12.8 %11.9-15.3FReg[facility] [id number] [address] [facility] 9[address]Znrrhdxa CountSept2024 6:06amSept2024 4:60mn526 10*3/lB061-213VeekjoskeHarrison Community Hospital Ctr [id number] [address] [facility] 620[address]Wkxf Platelet VolumeSept2024 6:06amSept2024 4:06pm8.6 fL6.3-10.7FReg[facility] [id number] [address] [facility] [address]Raxkpoobgiy (%) (Auto)November 15, 2024 6:06amSept2024 4:06pm60.0 %.[facility] [id number] [address] [facility] [address]Bfteyjeorwq (%) (Auto)November 15, 2024 6:06amSept2024 4:06pm31.4 %.[facility] [id number] [address] [facility] [address]Qifmupdoo (%) (Auto)November 15, 2024 6:06amSept2024 4:06pm6.9 %.[facility] [id number] [address] [facility] [address]Gqpwcxjpurr (%) (Auto)November 15, 2024 6:06amSept2024 4:06pm1.0 %.[facility] [id number] [address] [facility] 258[address]Krnbydfls (%) (Auto)November 15, 2024 6:06amSept2024 4:06pm0.7 %.[facility] [id number] [address] [facility] 28873Hzfozozke RBC Relative Count (auto)November 15, 2024 6:06am November 15, 2024 4:06pm0.2 /100{WBC}0-0.5FReg[facility] [id number] [address] [facility] 11428Gmcinqqwrhq # (Auto)November 15, 2024 6:06amSeptember 2024 4:06pm4.3 10*3/uL1.8-7.7FReg[facility] [id number] [address] [place] [id number] # (Auto)November 15, 2024 6:06amSeptember 2024 4:06pm2.3 10*3/uL1.00-4.8[facility] [id number] [address] [place] [id number] # (Auto)November 15, 2024 6:06amSeptember 2024 4:06pm0.5 10*3/uL0.0-0.8[facility] [id number] [address] [place] [id number] # (Auto)November 15, 2024 6:06amSeptember 2024 4:06pm0.1 10*3/uL0.0-0.45[facility] [id number] [address] [place], [place] [address]Basophils # (Auto)November 15, 2024 6:06amSeptember 2024 4:06pm0.1 10*3/uL0.0-0.2FReg[facility] [id number] [address] [place], [place] [address]Urine ColorDecember 2024 12:36pmDecember 2024 4:29pmColorlessYellowHarrison Community Hospital Ctr [id number] [address] [place], [place] [address]Urine AppearanceDecember 2024 12:36pmDecember 2024 4:29pmClearClearHarrison Community Hospital Ctr [id number] [address] [place] [id number] Specific GravityDecember 2024 12:36pmDecember 2024 4:29pm1.0091.001-1.030[facility] [id number] [address] [place], [place] [address]Urine pHDecember 2024 12:36pmDecember 2024 4:29pm 6.55.0-9.0[facility] [id number] [address] [facility] [address]Wixeq Leukocyte EsteraseDecember 2024 12:36pmDecember 2024 4:29pmNegativeNegativeHarrison Community Hospital [facility]tr [id number] [address] [facility] [address]Ozcks NitriteDecember 2024 12:36pmDecember 2024 4:29pmNegativeNegativeHarrison Community Hospital [facility] [id number] [address] [facility] [address]Ofmcv ProteinDecember 2024 12:36pmDecember 2024 4:29pmNegative mg/dLNegativeHarrison Community Hospital Ctr [id number] [address] [facility] [address]Twvje Glucose (UA)February 04, 2025 12:36pmDecember 2024 4:29pmNormal mg/dLNormalHarrison Community Hospital [facility]tr [id number] [address] [facility] [address]Kjoky KetonesDeceer 2024 12:36pmDecember 2024 4:29pmNegativeNegativeHarrison Community Hospital [facility]tr [id number] [address] [facility] [address]Jawse UrobilinogenDecember 2024 12:36pmDecember 2024 4:29pmNormal mg/dLNormalHarrison Community Hospital [facility]tr [id number] [address] [facility] [address]Xvkyy BilirubinDecember 2024 12:36pmDecember 2024 4:29pmNegativeNegativeHarrison Community Hospital [facility] [id number] [address] [facility] [address]1993Ishsu Occult BloodDecember 2024 12:36pmDecember 2024 4:29pmNegativeNegativeHarrison Community Hospital [facility]tr [id number] [address] [facility] [address]Olzbore LevelSeptember 2024 6:06amSeptember 2024 4:13hp019 mg/xM47-155FFO recommended reference rangeRandom Glucose Reference Range is dependent on time and content of last meal. Glucose of more than 200 mg/dL in a nonstressed, ambulatory subject supports the diagnosisof Diabetes Mellitus.[facility] [id number] [address] [facility] [address]Rnuvd Urea NitrogenSeptember 2024 6:06amSept2024 4:20pm15 mg/dL7-25[facility] [id number] [address] [facility] 825[address]VczrzpgutfBemuypbun 2024 6:06amSept2024 4:20pm0.83 mg/dL0.60-1.20[facility] [id number] [address] [facility] 56857Bujggyjmj GFR (CKD-EPI)November 15, 2024 6:06amSept2024 4:20pm> 60.0 mL/MinHarrison Community Hospital Ctr [id number] [address] [facility] 40663Iicfsv LevelSeptember 2024 6:06amSept2024 4:57nj621 mmol/D425-585FsxlbkpfaHarrison Community Hospital [facility]tr [id number] [address] [facility] [address]Mcvefwpor LevelSeptember 2024 6:06amSept2024 4:20pm4.4 mmol/L3.5-5.1FReg[facility] [id number] [address] [facility] [address]Ulcehwil LevelSeptember 2024 6:06amSept2024 4:07mr039 mmol/Q00-031GxvwjetiwHarrison Community Hospital [facility]tr [id number] [address] [facility] [address]Slzhtt Dioxide LevelSeptember 2024 6:06amSept2024 4:20pm28.1 mmol/L21.0-31.0[facility] [id number] [address] [facility] 205[address]Xsnbz GapSeptember 2024 6:06amSept2024 4:20pm 10.3 mEq/L6.0-15.0[facility] [id number] [address] [facility] [address]Jzytsug LevelSeptember 2024 6:06amSeptember 2024 4:20pm9.0 mg/dL8.6-10.3FReg[facility] [id number] [address] [facility] 14[address]Wabctvbth LevelSeptember 2024 6:06amSeptember 2024 4:20pm1.9 mg/dL1.9-2.7FRegency Hospital Company [facility] [id number] [address] [facility] [address]Mipch ProteinSeptember 2024 6:06amSeptember 2024 4:20pm6.5 g/dL6.4-8.9[facility] [id number] [address] [facility] [address]IclzuxmZofaopurn 2024 6:06amSeptember 2024 4:20pm 4.2 g/dL3.5-5.7FReg[facility] [id number] [address] [facility] 17113QyyestmrDzmdffstm 2024 6:06amSeptember 2024 4:20pm 2.3 g/dLHarrison Community Hospital Ctr [id number] [address] [facility] [address]Ntjoyus/Globulin RatioSeptember 2024 6:06amSeptember 2024 4:20pm1.8[facility] [id number] [address] [facility] 775[address]Mbpwg BilirubinSeptember 2024 6:06amSeptember 2024 4:20pm0.4 mg/dL0.3-1.0[facility] [id number] [address] [facility] [address]Ovwqpnjnp Amino Transf (AST/SGOT)November 15, 2024 6:06am November 15, 2024 4:20pm12 U/LBelow low mutvvz96-20VrqtviyujHarrison Community Hospital Ctr [id number] [address] [facility] 949[address]Wbykmhm Aminotransferase (ALT/SGPT)November 15, 2024 6:06am November 15, 2024 4:20pm11 U/L7-52[facility] [id number] [address] [facility] 56666Jeclzlxf PhosphataseSeptember 2024 6:06amSeptember 2024 4:20pm51 U/X25-396WzmhsdwzsHarrison Community Hospital [facility]tr [id number] [address] [facility] [address]Fhiw LevelSeptember 2024 6:06amSeptember 2024 4:20pm58 ug/jJ26-221CjluutsihHarrison Community Hospital Ctr [id number] [address] [facility] [address]Scnqm Iron Binding CapacitySeptember 2024 6:06amSept2024 4:22ne992 ug/fT173-262XkjxvutziHarrison Community Hospital [facility]tr [id number] [address] [facility] [address]Hihi SaturationSept2024 6:06amSept2024 4:20pm19.5 %Below low -34XysgjiihcHarrison Community Hospital Ctr [id number] [address] [facility] [address]PwznqrknyleIqdnbbsqp 2024 6:06amSept2024 4:23gy659 mg/sF305-374JgrdrbghcHarrison Community Hospital Ctr [id number] [address] [facility] 91146ZssxtluhZscppmjdp 2024 6:06amSept2024 4:49pm 31.6 ng/mL11.0-306.8[facility] [id number] [address] [facility] [address]Camehdn B12 LevelSept2024 6:06amSept2024 4:73jk005 pg/yP188-409ChazdyfyeHarrison Community Hospital Ctr [id number] [address] [facility] 93483FqilesMdmwszjoi 2024 6:06amSept2024 4:53pm 19.2 ng/mL>5.9Folate reference range: >5.9 ng/mlThe WHO technical consultation on folate and vitamin e81qlbirnxjidmp has determined that folate concentrations lessthan 4 ng/ml are considered deficient.[facility] [id number] [address] [facility] [address]Xfymbav Stimulating Hormone 3rd GenSept2024 6:06am November 15, 2024 4:47pm1.81 u[iU]/mL0.45-5.33[facility] [id number] [address] [facility] 95554Hkquzjdr Creatinine Clearance (ChemSeptember 2024 6:06am November 15, 2024 4:20pmN/AFReg[facility] [id number] [facility] [facility] 92037Gypaazyfvn G8wTvweyoilt 2024 6:06amSept2024 10:12am5.4 %4.3-5.6Increased risk for diabetes: 5.7 - 6.4diabetes: >6.4glycemic control for adults with diabetes: <7.0[facility] [id number] [facility] [facility] 05973Qzvollegt Average GlucoseSept2024 6:06amSept2024 10:53hk723 mg/dLHarrison Community Hospital Ctr [id number] [facility] [facility] 78329Yydsdwd LevelSept2024 6:06amSeptember 2024 2:07am9.1 u[iU]/mL2.6-24.9Performed at: [facility] [address] Director: Isaiah Fitzpatrick PhD, Phone: [phone] [facility] Diagnostic Imaging Reports Author Ricco Gilbert [facility] HospitalAuthoredNovember 2024 8:19amReport Dictated Date/TimeDictated ByStatusRadiology ReportNov2024 8:19am Ricco Gilbert II MDcompleted [facility] [address] [place] [address] Mammography Report Signed Patient: Jessica Valdez MR#: [id number] : 1990 Acct:[id number] Age/Sex: 34 / F Adm Date: 5 Loc: [place] Room: Type: [facility] Attending Dr: Merari Vargas PA-C Ordering Provider: Merari DELGADO Date of Service: 01/07/25 Procedure(s): MM diagnostic mammo BI w/CAD Accession Number(s): ([id number]) MM/MM diagnostic mammo BI w/CAD: N64.4 Copies to: Merari Pemberton DO~ DIAGNOSTIC BILATERAL MAMMOGRAM - FULL FIELD DIGITAL WITH TOMOSYNTHESIS CLINICAL DATA: Pain from left nipple to left axilla Craniocaudal and mediolateral oblique views of the left breast were obtained using low-dose digital technique. Comparison is made to prior studies from 420 05/31/1934 and 12/14/2023. This examination was reviewed with the aid of CAD. Benign-appearing calcifications are present bilaterally. There is scattered fibroglandular tissue. There are no dominant masses, typically malignant calcifications or architectural distortion. There has been no significant interval change. MM/MM diagnostic mammo BI w/CAD IMPRESSION: NO MAMMOGRAPHIC EVIDENCE OF MALIGNANCY. ROUTINE FOLLOW-UP IS RECOMMENDED IN ONE YEAR. RESULT CODE: 2 Benign Findings(s) DENSITY CODE: 2 (approximately 25-50% glandular) There are scattered areas of fibroglandular density. FOLLOW UP: 1YR The false-negative rate of mammography is approximately 10-percent. Management of a palpable abnormality must be based on clinical grounds. Impression dictated by: Ricco Gilbert M.D. 01/07/2025 8:23 AM Dictation Location: [facility] Dictated By: Ricco Gilbert II, MD 01/07/25 0819 Signed By: <Electronically signed by Ricco Gilbert II, MD in OV> 01/07/25 0823 Vital Signs Vital Reading Result Reference Range Collection Date/Time Height 70 [in_i] December 12, 2024 8:56kuIrnvnv296.24 [facility] 2024 8:53amBody Pqzdnucheem35.9 [degF]97.6-99.0Octmu[facility]lenberg [facility] 2024 8:53amHeart Rate80 /plo40-650 December 12, 2024 8:53amOxygen saturation by Pulse mjjumslz11 %95-100Oct[facility] 2024 8:53amBP Xywemnme737 mm[Hg]100-140October 2024 8:53amBP Zgeuwxfha70 mm[Hg]60-100Octmu[facility] 2024 8:53amBMI (Body Mass Index)31.7 kg/m2 December 12, 2024 8:53am Advance Directives Advance Directive Response Recorded Date/ Time Advance Directives No March 11:40am Insurance Providers Guarantor Jessica Stewart Kylerkatlin Address [address] [place], [place] [address]Contact Info.Home Phone: Payer Group Member ID Coverage Type Subscriber Relationship to Subscriber Effective Date Expiration Date [facility] Id: [id number] E Gysan Id: [id number] [address] [place] [phone] Home Phone: Email: [email or web address] [facility] Centerbam [facility] Id: [id number] Pat Sotomayorsan Id: [id number] [address] [place] [phone] Home Phone: Email: [email or web address] [id number] Pat Sotomayorsan Id: [id number] [address] [place] [phone] Home Phone: Email: [email or web address] O'[email or web address] Id: [id number] E Gysan Id: [id number] [address] [place] [phone] Home Phone: Email: [email or web address] Bannerdomenicobam [facility] Id: [id number] E Gysan Id: [id number] [address] [place] [phone] Home Phone: Email: [email or web address] Encounters Encounter Location(s) Arrival/Admit Date Discharge/Departure Date Discharge/Departure Disposition Provider(s) Departed Clinical -[facility] November 15, 2024 7:04am November 15, 2024 7:05am Discharged to home care or self care (routine discharge) John Pemberton DO Departed Physician/ Provider Office Visit -[facility] December 12, 2024 9:54am December 12, 2024 10:32am Discharged to home care or self care (routine discharge) John Pemberton DO Dep[facility]ed [facility] January 07, 2025 7:38am January 07, 2025 7:39am Discharged to home care or self care (routine discharge) SANDY Flores Non-patient / Non-visit -[facility] emily 2024 10:19am Rachel Floresarted [facility] 2024 12:35pm February 04, 2025 12:36pmDischarged to home care or self care (routine discharge)SANDY Flores Recent Diagnosis Onset Date Admit Date Abdominal pain Unknown December 12 9:54am Anxiety Unknown December 12 9:54am Nausea Unknown December 12 9:54am Assessments Author John Pemberton [facility] 2024 9:36amThe above note written by ___Dorcas Rush____ acting as human recorder, note dictated by Dr. Marley .I performed the above HPI, ROS, and Examination. I formulated and dictated the treatment plan and was present for entire encounter. John Pemberton D.O. Plan of Treatment Author Dorcas Rush [facility] 2024 9:31amShe voices that she has not done EMDR recently due to stressors in her life. She voices that she is in a better place now than she was in Mar (2024). Her eye is twitching, again likely caused by stress and she is not sleeping well. She will continue to monitor. She voices that her stomach has been upset since 11/18/24. She has always had stomach issues, it happened this summer but then went away and then returned. Her nausea is worse. She had an ectopic and had one tube removed. She did a test and it was negative. She is always bloated. She is nauseous to the point where it wakes her up. She has heartburn recently. She has not treated this but had a Zofran and took this once. She tried Peppermint tea but this made her more nauseous. I did recommend she avoid the peppermint tea which can make it worse. She goes days without bowel movements but this is normal for her. She had a CT scan of the abdomen in June (2024) which was reviewed today. Her organs were good at that time. With the stress she has been under there is concern for an ulcer. Before doing more radiation I would like to treat her for an ulcer and see if these symptoms resolve. I would like to treat with Pantoprazole. Medication works best if she can take it 15 min prior to a meal. I want her to take this for a total of two months and then stop, if her symptoms return then she would need to see a psych sales specialist for evaluation. She voices that when she eats her heart races, we discussed that when we eat it is a stress to the body and puts a workload on the heart. She was asked to mention this to her knitting supervisor when she is seen soon. Gas and bloating only come from carbs. If she eats proteins/carnivore type diet she will not have gas or bloating. She can think of ways to eat more protein, chicken, beef, fish and avoid things that cause gas. She just had a bowel movement today. The Pantoprazole should help keep the bowels moving. I did advise her that she can take OTC Colace daily in addition to help keep the bowels moving. She voices that she has pain in her left axilla and left breast, nothing abnormal palpated on exam today. She voices that she will contact her TABLET COATER for evaluation of this area. Future Tests Future scheduled test information is unavailable Pending Tests Test Name Ordered Date Scheduled Date Urine Culture February 04, 2025 12:36pm Future Visits Future appointment information is unavailable Future Procedures Future procedure information is unavailable Future Medications Future medication information is unavailable Patient Instructions Patient instructions are unavailable
--- NOTE | 2025-02-07 16:56 | US_ITS ---
The [address] [address] Patient Name: VINICIUS CHARLES MRN: [id number] date: 1990 Sex: F Assigned Patient Location: Current Patient Location: Accession/Order Number: [id number] Exam Date: 02/07/2025 17:00 Report Date: 02/08/2025 09:11 At the request of: TAMERA ROTH DO Procedure: US pelvis w/ transvaginal ULTRASOUND PELVIS WITH TRANSVAGINAL COMPARISON: CT 07/11/2024 CLINICAL DATA: Pelvic pain and bloating. Real-time ultrasound evaluation the pelvis was performed utilizing both a transabdominal and transvaginal approach. TRANSABDOMINAL: Estimated uterine size is approximately 8.6 x 3.3 x 4.7 cm . The endometrial lining measures approximately 7 - 8 mm in thickness. The myometrium is mildly heterogeneous. Only the left ovary is identified. TRANSVAGINAL: Transvaginal imaging was performed to better evaluate the uterus and adnexa. By this approach, the endometrial lining measures approximately 9 - 10 mm. No focal myometrial abnormalities are seen. The right ovary measures 2.8 x 1.6 x 2.5 cm. The left ovary measures 4.9 x 2.1 x 2.8 cm. There are left ovarian follicles and a small cyst which measures 2.0 x 1.2 x 2.2 cm in size. There is documentation of ovarian blood flow. A trace amount of free fluid is seen at the posterior cul-de-sac. US/US pelvis w/ transvaginal IMPRESSION: SMALL LEFT OVARIAN CYST. NO OTHER SIGNIFICANT FINDINGS. Impression dictated by: Donna Lubin M.D. 02/08/2025 9:11 AM Dictation Location: [place] [address] Electronically authenticated by: [id number] Y Date: 02/08/2025 09:11
--- OUTSIDE RECORDS SUMMARY | 2025-02-07 16:56 | XMS_ITS | Encounter Summary ---
Author Organization [facility] Address [address] [place] [address] Care Team Providers Care Rvda Master Certified Rv Technician Name Role Phone John Pembetron MD Primary Care Provider [phone] Encounter Details DateTypeDepartmentCare Team (Latest Contact Info)Lyhecgqixmp31/18/2025Telephone [facility] [address] [place] [address] Ruddy Mejia, [address] [place], [facility]11 Social History Tobacco UseTypesPacks/DayYears UsedDateSmoking Tobacco: NeverSmokeless Tobacco: NeverAlcohol UseStandard Drinks/WeekCommentsNot Currently0 (1 standard drink = 0.6 oz pure alcohol)pt reports no caffiene intakeEducationAnswerDate Recorded What is the highest level of school you have completed or the highest degree you have received?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, INLAYER, KIKO)09/29/2022 CommentsNoSex and Gender InformationValueDate RecordedSex Assigned at BirthNot on fileLegal ZixUvwrpo86/15/2023 7:21 PM EDTGender IdentityNot on file Sexual OrientationNot on fileOccupationIndustryJob Start DateJob End DateNot on fileNot on fileNot on fileNot on filedocumented as of this encounter Miscellaneous Notes * Telephone Encounter - Brenda Saul LPN - 02/07/2025 11:28 AM EST I am calling I have a you t I I talked to you guys on Tuesday and I am taking macrobid for that, butI still have a little burning and like itchiness and I am I am wondering if I also have a yeast infection In like past I have had good luck with a terconazole I do not know if that is something that could be prescribed. I know there is a medication for it too, but with my allergies I would prefer not to be on like 2 oral medication at the same time. In case I would be allergic [phone]. Thanks. Patient was called and made aware script would be sent into pharmacy for her and she asked if she can change from the monistat to this tonight she was advised she can. Pharmacy changed per request and script sent. documented in this encounter Plan of Treatment DateTypeDepartmentCare Team (Latest Contact Info)Jfohzlpdjsd23/19/2025 3:30 PM ESTAncillary Procedure [facility] [address] [place] [address] 02/12/2025 10:00 AM ESTOffice Visit [facility] [address] [place] [address] Ruddy Mejia DO [address] [place], [place] [id number] 02/25/2025 3:20 PM ESTOffice Visit [facility] [address] [place] [address] Neha Sanchez PA [address] [place] [address] documented as of this encounter Goals GoalPatient Goal TypeAssociated ProblemsRecent ProgressPatient-Stated?Author Reminders Care PlanOB RemindersNoHuPurvi hernandez, MAdocumented as of this encounter Visit Diagnoses Diagnosis Yeast infection documented in this encounter Additional Health Concerns Active ProblemsNoted DateDiagnosed DateOB Pkzsqiuoo55/16/2025 documented as of this encounter Care Teams Team MemberRelationshipSpecialtyStart DateEnd Date John Pemberton MD [address] [place] [address] [place] [address] PCP - GeneralFamily Medicine09/30/22documented as of this encounter
--- OUTSIDE RECORDS SUMMARY | 2025-02-07 16:56 | XMS_ITS | Encounter Summary ---
Author Organization [facility] Address [address] [place] [address] Care Team Providers Care Station Attendant Name Role Phone John Pemberton MD Primary Care Provider [phone] Encounter Details DateTypeDepartmentCare Team (Latest Contact Info)Njsjnkteqeq27/15/2025Telephone [facility] [address] [place] [address] Ruddy Mejia, [address] [place], [facility]11 Social History Tobacco UseTypesPacks/DayYears UsedDateSmoking Tobacco: NeverSmokeless Tobacco: NeverAlcohol UseStandard Drinks/WeekCommentsNot Currently0 (1 standard drink = 0.6 oz pure alcohol)pt reports no caffiene intakeEducationAnswerDate Recorded What is the highest level of school you have completed or the highest degree you have received?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, FILAMENT TESTER, KIKO)09/29/2022 CommentsNoSex and Gender InformationValueDate RecordedSex Assigned at BirthNot on fileLegal WacZwsthj32/15/2023 7:21 PM EDTGender IdentityNot on file Sexual OrientationNot on fileOccupationIndustryJob Start DateJob End DateNot on fileNot on fileNot on fileNot on filedocumented as of this encounter Miscellaneous Notes * Telephone Encounter - Brenda Saul LPN - 02/04/2025 10:55 AM EST After speaking with provider patient was called back and she was advised we will send in Macrobid for her and an Ultrasound. Patient states that she did call her family Dr and that is what he said also and he did send in the script for her so we do not need to we will send in the Ultrasound and shewas advised that if this happens again to reach out to PCP so they can manage this. PVU * Telephone Encounter - Brenda Saul LPN - 02/04/2025 9:33 AM EST I am calling to let you guys know I was up a lot last night with the burning pain. And when I use the restroom, it feels like I am like peeing needles. My lower back has been hurting for like the last couple of mornings, but it is like more consistent today and then I have had more of an upset stomach, but I took a one of those tests like urinary tract infection tests at home, and before I even lifted it out, the nitrate one 1 was like instantly pink, like indicated positive, I do not know, butI also have a kidney stone. So I am a little worried about that. Spoke with patient and advised would discuss with due to all the allergies she has had. Patient does not see Urology and kidney stone was from imaging in june. documented in this encounter Plan of Treatment DateTypeDepartmentCare Team (Latest Contact Info)Pcqnqailaxn16/19/2025 3:30 PM ESTAncillary Procedure [facility] [address] [place] [id number] 02/12/2025 10:00 AM ESTOffice Visit [facility] [address] [place] [address] [place] [address] Ruddy Mejia DO [address] [facility] [place] [address] 02/25/2025 3:20 PM ESTOffice Visit [facility] [address] [place] [address] Neha Sanchez PA [address] [place] [address] NameTypePriorityAssociated DiagnosesOrder ScheduleUS renal completeImaging Routine Low back pain, unspecified back pain laterality, unspecified chronicity, unspecified whether sciatica present Nausea Burning with urination Expected: 02/04/2025, Expires: 02/04/2026documented as of this encounter Goals GoalPatient Goal TypeAssociated ProblemsRecent ProgressPatient-Stated?Author Reminders Care PlanOB RemindersNoPurvi Davis, MAdocumented as of this encounter Visit Diagnoses Diagnosis Low back pain, unspecified back pain laterality, unspecified chronicity, unspecified whether sciatica present Nausea Nausea alone Burning with urination Dysuria documented in this encounter Additional Health Concerns Active ProblemsNoted DateDiagnosed DateOB Qmknhssrv84/16/2025 documented as of this encounter Care Teams Team MemberRelationshipSpecialtyStart DateEnd Date John Pemberton MD [address] [place] [address] PCP - GeneralFamily Medicine09/30/22documented as of this encounter
--- OUTSIDE RECORDS SUMMARY | 2025-02-07 16:56 | XMS_ITS | Clinical Summary ---
Author Organization [facility] Address [address] [place] [address] Care Team Providers Care Oral And Maxillofacial Surgeon Name Role Phone Jhon Pemberton MD Primary Care Provider [phone] Allergies Active AllergyReactionsCriticalityNoted EvbnAusepepuDsxqwdcafzpZyytMvz87/10/2023 Amoxicillin-Pot ClavulanateRash,NhulxGhb08/10/2023AzithromycinRash,HivesLow 05/21/2016 Other Reaction(s): rashes XjqliovdLizam45/10/2023 Other Reaction(s): rashes CefdinirSwelling,Hives05/21/2016 Other Reaction(s): rashes Other Reaction(s): Rash EzhxtxvpbVvytSbr73/10/2023 Other Reaction(s): rashes Abfykmplix87/15/2025 Other Reaction(s): rash Dextromethorphan MslAhsxWwc65/10/2023 Other Reaction(s): rashes MarwhheprykRqelv03/31/2017 Other Reaction(s): finger swelling, joints swollen, Unknown OelsnddvpfafKnwrCng09/31/2017Erythromycin JoxcEjovFkk95/02/2024 Other Reaction(s): rash Mvpxpyvniba58/31/2017 Other Reaction(s): Other: See Comments Other reaction(s): Other: See Comments QT prolongation QT prolongation Other Reaction(s): Other, Other: See Comments, QT Prolongation QT prolongation Other Reaction(s): Other: See Comments ??Other reaction(s): Other: See Comments QT prolongation ?? QT prolongation Other reaction(s): Other: See Comments QT prolongation QT prolongation Other reaction(s): Other: See Comments QT prolongation MlkjomsbtqEixk36/15/2025 Other Reaction(s): serotonin syndrome XbmcadgzpbsLlekVdu54/10/2023 Other Reaction(s): rashes IbcbmrucuCjlqt65/28/2019 Other Reaction(s): Rash Penicillin SFnurUjd75/31/9181VqzlsyysumnWedlQoo52/31/2017 Other Reaction(s): Rash, Unknown LdufeazwctywcujDctuVcq91/10/2023 Other Reaction(s): rashes Pseudoephedrine-UtuigqukaWswxi16/22/2023Sulfa AntibioticsRash,InbpnGfv25/31/2017 Other Reaction(s): Hives Sulfamethoxazole-SwpdjhzgfvcyHofzmoh26/22/5390GzvhfnflavmvIyacv54/10/2023 Other Reaction(s): hives KvvcwzeggihsColhGpe12/02/2024 Medications MedicationSigDispense QuantityRefillsLast FilledStart DateEnd DateStatus acetaminophen (Tylenol) 500 MG tablet Take 500 mg by mouth every 6 (six) hours if needed for mild painActive terconazole (Terazol 7) 0.4 % vaginal cream Indications:Yeast infectionInsert 1 applicator into the vagina at bedtime for 7 days 45 g 515Active Active Problems ProblemNoted DateDiagnosed DateAbdominal pain02/02/2024cute kaykqevpz26/12/2024 Adjustment vqhlzsla93/12/2234Navdufvptn52/12/1898Ycwfqzbloth52/12/2024ervical txfxnhekmvpngor44/12/2024esarean delivery delivered ([facility])02/02/2024ough 02/02/2024Encounter for supervision of other normal , unspecified trimester ([facility])02/02/2024First trimester bleeding ([facility])02/02/2024Iron deficiency bmpshg0202/02/2024Irregular aodqgi9902/02/2024Nausea & /12/2024 Pain in female genitalia on drepwjdpbhr66/12/2024MDD (premenstrual dysphoric disorder)02/02/2024S/P C-xljdkcr6002/02/2024Weight gain02/02/2024MI 32.0-32.9,adult12/30/2023Never smoked itflqjt9812/30/2023alance disorder 12/15/2022nxiety and jbupgvaaax00/22/8986Vwattasyxxel05/22/2023Hypotension 12/12/2022Neurocardiogenic pre-ykjdlie1812/12/2022elvic floor dysfunction 12/12/2022elvic floor uxxdcom2812/12/20221928Fqazktujfdk63/19/2677Sbdjcxwv94/19/2023 Vertigo of central svsavi5012/09/2022Serotonin syndrome Encounters DateTypeDepartmentCare QrahXnhqcyponoz09/18/2025Telephone [facility] [address] [place] [address] Ruddy Mejia, DO 02/04/2025Telephone [facility] [address] [place] [address] Ruddy Mejia, DO 5Clinisync Result Encounter [facility] External Department Unsolicited Merari Vargas PA 01/21/2025Telephone [facility] [address] [place] [address] Anya Man RI 01/07/2025External Result Encounter [facility] External Department Unsolicited Merari Vargas PA 12/25/2024 11:00 AM ESTOffice Visit [facility] [address] [place] [address] Merari Vargas PA Breast pain, left; Breast tenderness in female; PCOS (polycystic ovarian syndrome); Abnormal uterine bleeding (AUB)12/25/2024Telephone [facility] [address] [place] [address] Merari Vargas PA 12/25/2024amboo flowsheet [facility] [address] [place] [address] Merari Vargas PA 12/12/2024Telephone [facility] [address] [place] [address] [place] [address] Anya Man MA from Last 3 Months Family History Medical HistoryRelationNameCommentsNo Known ProblemsDaughterNo Known Problems FatherCancerMaternal GrandmotherDiabetesMaternal GrandmotherHeart disease Maternal GrandmotherHypertensionMotherDiabetesPaternal GrandfatherMental illness Paternal GrandmotherNo Known ProblemsSisterNo Known ProblemsSonMelanomaNeg Hx AbsrgnisPvyyNqjmcdBofxgqyoHuyqzsobo7CyzyfwPbgdzEifwfqdi GrandfatherDeceased Maternal GrandmotherDeceasedMotherAlivePaternal GrandfatherAlivePaternal UdydhwwywhqDiswfBkrwrov2LzzOmnys and he is adopted Social History Tobacco UseTypesPacks/DayYears UsedDateSmoking Tobacco: NeverSmokeless Tobacco: Never Tobacco Cessation:Counseling Given: Not Answered Alcohol UseStandard Drinks/WeekCommentsNot Currently0 (1 standard drink = 0.6 oz pure alcohol)pt reports no caffiene intakeEducationAnswerDate RecordedWhat is the highest level of school you have completed or the highest degree you have received?Master's degree (e.g., IOANA, MS, Murtaza, MEd, 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, KIKO)3 CommentsNoSex and Gender InformationValueDate RecordedSex Assigned at BirthNot on fileLegal RytCjrvqo51/15/2023 7:21 PM EDTGender IdentityNot on fileSexual OrientationNot on fileOccupationIndustryJob Start DateJob End DateNot on fileNot on fileNot on fileNot on file Last Filed Vital Signs Vital SignReadingTime TakenCommentsBlood Jewjgown140/6811 11:13 AM EST Kbivl24363/21/2025 3:29 PM DWANzbgqrvsstw18.4 ??C (97.5 ??F)04/13/2024 3:29 PM ESTRespiratory Rate--Oxygen Rreyxkyppy790%04/13/2024 3:29 PM ESTInhaled Oxygen Concentration--Ynufni668 kg (222 lb)12/25/2024 11:13 AM EPTHseszi981.3 cm (5' 9 )12/25/2024 11:13 AM ESTBody Mass Index32.7812/25/2024 11:13 AM EST Plan of Treatment DateTypeDepartmentCare Team (Latest Contact Info)Limuxxpiwhs78/19/2025 3:30 PM ESTAncillary Procedure [facility] [address] [place] [phone] 02/12/2025 10:00 AM ESTOffice Visit [facility] [address] [place] [phone] Ruddy Mejia DO [address] [place], [place] [phone] 02/25/2025 3:20 PM ESTOffice Visit [facility] [address] [place] [phone] Neha Sanchez PA [address] [place] [address] Goals GoalPatient Goal TypeAssociated ProblemsRecent ProgressPatient-Stated?Author Reminders Care PlanOB RemindersNoPurvi Davis MA Procedures Procedure NamePriorityDate/TimeAssociated DiagnosisCommentsALL QWBQABTHCPHJSZRCTEMTZWSdzngyn33/06/2025 10:19 AM EST ALL ANTI-MULLERIAN QJRMOIAMikrloo17/06/2025 10:19 AM EST TBH BOVAQNXFXMxhrknu17/06/2025 10:19 AM EST ALL FOLLICLE STIMULATING XDDUEKKIbolqbj14/06/2025 10:19 AM EST ALL LUTEINIZING ONUSRGGCopijal39/06/2025 10:19 AM EST ALL DHEA SJTKXUMEkijgkz49/07/2024 10:19 AM EST MLR HEMOGLOBIN Z2MZlnrqgz54/06/2025 10:19 AM EST [facility] PREG QUANT HYOGfdklsz10/06/2025 10:19 AM EST ALL THYROID STIM LKXREHJWuecbpk20/06/2025 10:19 AM EST ALL THYROXINE (T4) STCQRxsbneb40/06/2025 10:19 AM EST ALL CBC WITH AUTO SLEOSumusab88/06/2025 10:19 AM EST BI MAMMOGRAM DIAGNOSTIC TOMOSYNTHESIS VDRFKNSCW58/17/2025 8:19 AM EST from Last 3 Months Results * [facility] PROLACTIN (01/26/2025 10:19 AM EST)ComponentValueRef RangeTest Method Analysis TimePerformed AtPathologist SignaturePROLACTIN9.64.8 - 33.4 ng/mLTBH Comment: Performed at: ??[place] - [facility] [address] ??[id number] Travel Ticketing Reviewer: Isaiah Fitzpatrick PhD, Phone: ??[phone] Specimen (Source)Anatomical Location / LateralityCollection Method / Volume Collection TimeReceived Time01/26/2025 10:19 AM EST01/26/2025 10:47 AM EST Narrative [facility] - 01/27/2025 7:07 AM EST Authorizing ProviderResult TypeResult StatusAmy Bristol PACLINISYNCFinal Result Performing OrganizationAddressCity/State/ZIP CodePhone Number [facility] * [facility] PREG QUANT HCG (01/26/2025 10:19 AM EST)ComponentValueRef RangeTest Method Analysis TimePerformed AtPathologist SignatureHCG QUANTITATIVE<1mIU/mLTBH Comment: 5-50 ? 0.2-1 WEEK 50-500 ? 1-2 WEEKS 100-5,000 ?2-3 WEEKS 500-10,000 ? 3-4 WEEKS 1,000-50,000 ?? 4-5 WEEKS 10,000-100,000 5-6 WEEKS 15,000-200,000 6-8 WEEKS 10,000-100,000 2-3 MONTHS Specimen (Source)Anatomical Location / LateralityCollection Method / Volume Collection TimeReceived Time01/26/2025 10:19 AM EST01/26/2025 10:47 AM EST Narrative [facility] - 01/26/2025 11:34 AM EST Authorizing ProviderResult TypeResult StatusAmy Sam PACLINISYNCFinal Result Performing OrganizationAddressCity/State/ZIP CodePhone Number [facility] * MLR HEMOGLOBIN A1C (01/26/2025 10:19 AM EST)ComponentValueRef RangeTest Method Analysis TimePerformed AtPathologist SignatureGLYCOHEMOGLOBIN A1C5.34.5 - 6.2 %TBHComment: ADA RECOMMENDED LIMIT 4.0 - 6.0 ADA THERAPEUTIC TARGET < 7.0 ACTION SUGGESTED > 7.0 ESTIMATED AVERAGE PXODEAA346kx/dLTBHSpecimen (Source)Anatomical Location / LateralityCollection Method / VolumeCollection TimeReceived Time01/26/2025 10:19 AM EST01/26/2025 10:47 AM EST Narrative [facility] - 01/26/2025 11:34 AM EST Authorizing ProviderResult TypeResult StatusAmy Sam PACLINISYNCFinal Result Performing OrganizationAddressCity/State/ZIP CodePhone Number [facility] * ALL THYROXINE (T4) FREE (01/26/2025 10:19 AM EST)ComponentValueRef RangeTest MethodAnalysis TimePerformed AtPathologist SignatureFREE T40.950.76 - 1.46 ng/dLTBHSpecimen (Source)Anatomical Location / LateralityCollection Method / VolumeCollection TimeReceived Time01/26/2025 10:19 AM EST01/26/2025 10:47 AM EST Narrative CLIN[facility]YNC - 01/26/2025 11:26 AM EST Authorizing ProviderResult TypeResult StatusAmy Sam PACLINISYNCFinal Result Performing OrganizationAddressCity/State/ZIP CodePhone Number [facility] * ALL THYROID STIM HORMONE (01/26/2025 10:19 AM EST)ComponentValueRef RangeTest MethodAnalysis TimePerformed AtPathologist SignatureTHYROID STIMULATING HORMONE1.9460.358 - 3.740 uIU/mLTBHSpecimen (Source)Anatomical Location / LateralityCollection Method / VolumeCollection TimeReceived Time01/26/2025 10:19 AM EST01/26/2025 10:47 AM EST Narrative [facility]YNC - 01/26/2025 11:34 AM EST Authorizing ProviderResult TypeResult StatusAmy Sam PACLINISYNCFinal Result Performing OrganizationAddressCity/State/ZIP CodePhone Number [facility] * ALL LUTEINIZING HORMONE (01/26/2025 10:19 AM EST)ComponentValueRef RangeTest MethodAnalysis TimePerformed AtPathologist SignatureLUTEINIZING HORMONE(LH)9.4 . mIU/mLTBHComment: ? Adult Female ?Range ?Follicular phase ?2.4 - ??12.6 ?Ovulation phase ?14.0 - ??95.6 ?Luteal phase ?1.0 - ??11.4 ?Postmenopausal ?7.7 - ??58.5 Specimen (Source)Anatomical Location / LateralityCollection Method / Volume Collection TimeReceived Time01/26/2025 10:19 AM EST01/26/2025 10:47 AM EST Narrative [facility] - 01/27/2025 7:07 AM EST Authorizing ProviderResult TypeResult StatusAmy Sam PACLINISYNCFinal Result Performing OrganizationAddressCity/State/ZIP CodePhone Number [facility] * ALL FOLLICLE STIMULATING HORMONE (01/26/2025 10:19 AM EST)ComponentValueRef RangeTest MethodAnalysis TimePerformed AtPathologist FwqeorfxqGTT12.5. mIU/mL TBHComment: ? Adult Female ? Range ?Follicular phase ?3.5 - ??12.5 ?Ovulation phase ? 4.7 - ??21.5 ?Luteal phase ?1.7 - ?? 7.7 ?Postmenopausal ? 25.8 - 134.8 Specimen (Source)Anatomical Location / LateralityCollection Method / Volume Collection TimeReceived Time01/26/2025 10:19 AM EST01/26/2025 10:47 AM EST Narrative CL[facility]YNC - 01/27/2025 7:07 AM EST Authorizing ProviderResult TypeResult StatusAmy Sam PACLINISYNCFinal Result Performing OrganizationAddressCity/State/ZIP CodePhone Number [facility] * ALL DHEA SULFATE (01/26/2025 10:19 AM EST)ComponentValueRef RangeTest Method Analysis TimePerformed AtPathologist SignatureDHEA-ENATBUJ336.084.8 - 378.0 ug/dLTBHSpecimen (Source)Anatomical Location / LateralityCollection Method / VolumeCollection TimeReceived Time01/26/2025 10:19 AM EST01/26/2025 10:47 AM EST Narrative [facility]NC - 01/27/2025 7:07 AM EST Authorizing ProviderResult TypeResult StatusAmy Bristol PACLINISYNCFinal Result Performing OrganizationAddressCity/State/ZIP CodePhone Number [facility] * ALL DEHYDROEPIANDROSTERONE (01/26/2025 10:19 AM EST)ComponentValueRef Range Test MethodAnalysis TimePerformed AtPathologist SignatureDHEA, WKSJT32235 - 701 ng/dLTBHComment: This test was developed and its performance characteristics determined by [facility]. It has not been cleared or approved by the Food and Drug Administration. Performed at: ?? - [facility] [address] ??[id number] Travel Ticketing Reviewer: Merlyn Sanders MD, Phone: ??[phone] Specimen (Source)Anatomical Location / LateralityCollection Method / Volume Collection TimeReceived Time01/26/2025 10:19 AM EST01/26/2025 10:47 AM EST Narrative [facility] - 02/01/2025 5:07 AM EST Authorizing ProviderResult TypeResult StatusAmy Sam PACLINISYNCFinal Result Performing OrganizationAddressCity/State/ZIP CodePhone Number [facility] * ALL CBC WITH AUTO DIFF (01/26/2025 10:19 AM EST)ComponentValueRef RangeTest MethodAnalysis TimePerformed AtPathologist SignatureTBH WBC6.34.0 - 11.0 10 3/uLTBHTBH RBC4.624.20 - 5.40 10 6/uLTBHTBH HGB13.612.0 - 16.0 g/dLTBHTBH HCT 42.236.0 - 48.0 %TBHTBH MCV91.381.0 - 99.0 fLTBHTBH MCH29.426.7 - 34.0 pgTBH TBH MCHC32.229.9 - 35.2 g/dLTBHTBH RDW11.911.0 - 15.0 %TBHTBH ORX848751 - 450 10 3/uLTBHTBH MPV9.69.5 - 13.5 fLTBHNEUTROPHILS PERCENT AUTO59.243.0 - 75.0 % TBHLYMPHOCYTES PERCENT AUTO32.820.5 - 60.0 %TBHMONOCYTES PERCENT AUTO6.11.7 - 12.0 %TBHTBH EO %1.10.9 - 7.0 %TBHBASOPHILS PERCENT AUTO0.60.2 - 2.0 %TBH IMMATURE GRANULOCYTES PCT AUTO0.20.0 - 0.5 %TBHNEUTROPHILS ABSOLUTE AUTO3.71.4 - 6.5 10 3/uLTBHLYMPHOCYTES ABSOLUTE AUTO2.11.2 - 3.8 10 3/uLTBHMONOCYTES ABSOLUTE AUTO0.40.3 - 0.8 10 3/uLTBHTBH EO #0.10.0 - 0.7 10 3/uLTBHBASOPHILS ABSOLUTE AUTO0.00.0 - 0.1 10 3/uLTBHIMMATURE GRANULOCYTES ABS AUTO0.010.00 - 0.03 10 3/uLTBHSpecimen (Source)Anatomical Location / LateralityCollection Method / VolumeCollection TimeReceived Time01/26/2025 10:19 AM EST01/26/2025 10:47 AM EST Narrative [facility] - 01/26/2025 11:01 AM EST Authorizing ProviderResult TypeResult StatusAmy Sam PACLINISYNCFinal Result Performing OrganizationAddressCity/State/ZIP CodePhone Number [facility] * ALL ANTI-MULLERIAN HORMONE (01/26/2025 10:19 AM EST)ComponentValueRef Range Test MethodAnalysis TimePerformed AtPathologist SignatureANTI-MULLERIAN HORMONE (AMH)0.206. ng/mLTBHComment: For assays employing antibodies, the possibility exists for interference by heterophile antibodies in the samples.1 1.Kasandra Mukherjee ??Interferences in Immunoassays - still a threat. Clin. Chem. 2000; 46: 1665-2703. This test was developed and its performance characteristics determined by [employer] It has not been cleared or approved by the Food and Drug Administration. Reference Range: Females 31 - 35y: 0.66 - 8.75 Median ??3.00 AMH concentrations of >= 1.06 ng/mL is correlated with a better response to ovarian stimulation, produced more retrievable oocytes and higher odds of live according to Adrieler et al. ??Fertility and Sterility. 2010: 94:3742-7107. ??The current AMH test method correlates with the study method with a slope of 0.94. Females at risk of ovarian hyperstimulation syndrome or polycystic ovarian syndrome (PCOS) may exhibit elevated serum AMH concentrations. ?? AMH levels from PCOS patients may be 2 to 5 fold higher than age-appropriate reference interval values. Granulosa cell tumors of the ovary may secrete AMH along with other tumor markers. ??Elevated AMH is not specific for malignancy, and the assay should not be used exclusively to diagnose or exclude an AMH-secreting ovarian tumor. Performed at: ??[facility] - [facility] [address] [place], [place] ??[id number] Travel Ticketing Reviewer: Claudia Negron MD, Phone: ??[phone] Specimen (Source)Anatomical Location / LateralityCollection Method / Volume Collection TimeReceived Time01/26/2025 10:19 AM EST01/26/2025 10:47 AM EST Narrative [facility] - 02/01/2025 4:07 AM EST Authorizing ProviderResult TypeResult StatusAmy Sam PACLINISYNCFinal Result Performing OrganizationAddressCity/State/ZIP CodePhone Number [facility] * Bilateral diagnostic mammogram with tomosynthesis (01/07/2025 [...] M.D. ??01/07/2025 8:23 AM ? Dictation Location: DWS01 ? Dictated By: ?Ricco Gilbert II, MD ? 01/07/2519 ? Signed By: <Electronically signed by Ricco Gilbert II, MD in OV> ? 11/17/25 0823 Narrative 01/08/2025 6:58 AM EST ?[facility] ? [address] ? [place] [address] ?[phone] ? Mammography Report ? Signed ? Patient: Gysan,Jessica E ?MR#: [id number] ?? [id number] ? : 1990 ?Acct:[id number] ? Age/Sex: 34 / F ?Adm Date: 01/07/ ? Loc: [place] ?Room: ?Type: DEP CLI ?? Attending Dr: Merari Vargas PA-C ? Ordering Provider: Merari Vargas DIRECTOR [employer]-C ? Date of Service: 01/07/ ? Procedure(s): MM diagnostic mammo BI w/CAD ?? Accession Number(s): ([id number]) MM/MM diagnostic mammo BI w/CAD: N64.4 ? Copies to: Merari DELGADO ?? John Pemberton,DO ? DIAGNOSTIC BILATERAL MAMMOGRAM - FULL FIELD DIGITAL WITH TOMOSYNTHESIS ? CLINICAL DATA: ??Pain from left nipple to left axilla ? Craniocaudal and mediolateral oblique views of the left breast were obtained using low-dose digital technique. ??Comparison is made to prior studies from [facility] 05/31/1934 and 12/14/2023. ??This examination was reviewed with the aid of CAD. ? Benign-appearing calcifications are present bilaterally. There is scattered fibroglandular tissue. There are no dominant masses, typically malignant calcifications or architectural distortion. ??There has been no significant interval change. ? MM/MM diagnostic mammo BI w/CAD ?? Procedure Note Ricco Gilbert MD - 01/08/2025 [facility] [address] [place] [address] Mammography Report Signed Patient: Jessica Valdez EMR#: [id number] : 1990Acct:[id number] Age/Sex: 34 / FAdm Date: 01/07/25 Loc: [place] Room:Type: [facility] Attending Dr: Merari Vargas PA-C Ordering Provider: Merari DELGADO Date of Service: 01/07/25 Procedure(s): MM diagnostic mammo BI w/CAD Accession Number(s): ([id number]) MM/MM diagnostic mammo BI w/CAD: N64.4 Copies to: Merari Pemberton DO DIAGNOSTIC BILATERAL MAMMOGRAM - FULL FIELD DIGITAL WITH TOMOSYNTHESIS CLINICAL DATA: Pain from left nipple to left axilla Craniocaudal and mediolateral oblique views of the left breast wereobtained using low-dose digital technique. Comparison is made to prior studies from [facility] 05/31/1934 and12/14/2023. This examination was reviewed [...] Gilbert M.D. 01/07/2025 8:23 AM Dictation Location: [facility] Dictated By: Ricco Gilbert II, MD 01/07/25 0819 Signed By: <Electronically signed by Ricco Gilbert II, MD inOV> 01/07/25 08 Authorizing ProviderResult TypeResult StatusAmy Bristol PAIMG BI PROCEDURESFinal Result from Last 3 Months Additional Health Concerns Active ProblemsNoted DateDiagnosed DateOB Jrebblgvf03/16/2025 Insurance Care Teams Team MemberRelationshipSpecialtyStart DateEnd Date John Pemberton MD [address] [place] [address] [place] [address] PCP - GeneralFamily Medicine09/30/22
--- OUTSIDE RECORDS SUMMARY | 2025-02-07 16:56 | XMS_ITS | Clinical Summary ---
Author Organization [facility] Address [address] [place], [place] [id number] Care Team Providers Care Supervisor Speech Name Role Phone John Pemberton DO Primary Care Provider [phone] Reshma Kim RN Unavailable Unavailable John Pemberton DO Unavailable [phone] Allergies Active AllergyReactionsCriticalityNoted DateCommentsFluconazoleOther: See Voikedpz12/31/2017 QT prolongation ByjbaysjpdiCamxs59/31/2292JgpbuzfyjnmyBmvx29/31/7848BgslmwuatEykdf27/28/2019 JyvcxdelVmjtbiaa78/31/4347SwguuamcbbPzbt77/31/5108BenwvdvkzqogzVjad13/31/2017 UfgdtfpbrizyDfru40/31/2017 Medications MedicationSigDispense QuantityRefillsLast FilledStart DateEnd DateStatus Cholecalciferol, Vitamin D3, (VITAMIN D) 1,000 unit cap Take 5 capsules by mouth once daily. (CAN GET THE 5,000 IU AT [email or web address]) 11/17/2017Active vit/iron fum/folic ac ( VITAMIN ORAL) Take by mouth.Active UBIQUINONE ORAL Take by mouth.Active LORazepam (ATIVAN) 0.5 mg Take 0.25 mg by mouth two times a day as needed.Active Magnesium Oxide 500 mg cap Take 1 capsule by mouth once daily. 30 capsule 5Active meloxicam (MOBIC) 15 mg tablet Take 1 tablet by mouth once daily as needed for pain. 30 tablet 5Active naratriptan (AMERGE) 2.5 mg tablet Take one at onset of severe headache/migraine may repeat x 1 after 4 hours if needed. Maximum 2/dayand 2 days/week. 9 tablet 5Active fludrocortisone (FLORINEF) 0.1 mg tablet Take 0.1 [...] by mouth cycle day 5-9. 15 tablet Discontinued iv contrast (will be provided with radiology [...] MR contrast administration guidelines link 1 each Expired iv contrast (will be provided with radiology [...] the MRcontrast administration guidelines link. 1 each Expired Active Problems No known active problems Encounters DateTypeDepartmentCare UomvErxozfovele90/05/2025 11:30 AM ESTOffice Visit Neurology [address] [place] [address] Yang Colon, Dizziness (Primary Dx); Migraine without aura and without status migrainosus, not intractable; Manjit's reflex nsurcnex40/22/2025Telephone Neurology [address] [place] [phone] Provider, Neurology Received Outside Medical Records (External referral to Neurological [place]/) from Last 3 Months Family History Medical HistoryRelationCommentsIschemic Heart DiseaseMaternal Grandfather DiabetesMaternal GrandmotherDiabetesPaternal GrandfatherRelationStatusComments Maternal GrandfatherMaternal GrandmotherPaternal Grandfather Social History Tobacco UseTypesPacks/DayYears UsedDateSmoking Tobacco: NeverSmokeless Tobacco: Never Tobacco Cessation:Counseling Given: Not Answered Alcohol UseStandard Drinks/WeekCommentsYes0 (1 standard drink = 0.6 oz pure alcohol)rareArea Deprivation IndexAnswerDate RecordedNational Score (1-100), lower number is lower czaw915201/25/2025State Score (1-10), lower number is lower npvw52603/28/2024Data from: https://www.neighborhoodatlas.[facility].edu/. Last address used for [address] [address]/25/2025CommentsNoSex and Gender InformationValueDate RecordedSex Assigned at BirthNot on fileLegal ByvQdyorz98/04/2017 9:33 AM ESTGender IdentityNot on fileSexual OrientationNot on file Last Filed Vital Signs Vital SignReadingTime TakenCommentsBlood Mzmfbhvf810/7005 2:02 PM EDT Wcqrt9820 11:41 AM NYGLyybldojzao20.3 ??C (97.3 ??F)05/25/2018 10:46 AM EDTRespiratory Ytgu6655 11:41 AM EDTOxygen Skjljvvesl466%05/25/2018 11:41 AM EDTInhaled Oxygen Concentration--Vmktpd72.5 kg (204 lb)07/07/2018 2:02 PM VEZEvihgo982 cm (5' 8.5 )07/07/2018 2:02 PM EDTBody Mass Index30.5705 2:02 PM EDT Plan of Treatment DateTypeDepartmentCare Team (Latest Contact Info)Mzteanfbtvn57/01/2026 4:00 PM ESTOT/PT/Speech Visit Physical Therapy [address] [place] [address] Miguel A Vides, PT [address] [place] [address] Dx: Dizziness [R42]; Migraine without aura and without status migrainosus, not intractable [G43.009]03/16/2025 8:20 AM [facility] Radiology MRI [address] [place] [address] MRI BRAIN WO/W IVCON03/16/2025 9:00 AM [facility] [place]iology MRI [address] [place] [address] MRI CERVICAL SPINE WO/W IVCON09/27/2025 10:30 AM EDTOffice Visit Neurology [address] [place] [address] [place] [address] [place] [address] return in 6 monthsHealth MaintenanceDue DateLast DoneCommentsAnxiety Screening 2009Depression Ssmhpomwy96/27/2010HIV Yaytdpeab82/27/2010Hepatitis B Vaccine (1 of 3 - 19+ 3-dose series)2010Cervical Cancer Screening 2012HPV Vaccine (1 - 3-dose SCDM series)2018Covid-19 Vaccine ( season)2024Influenza Vaccine (#1)2024DTaP,Tdap,Td Vaccine (2 - Td or Tdap)Hepatitis C ImiaxcpkeXgogkwbbm57/26/2021 Procedures Procedure NamePriorityDate/TimeAssociated DiagnosisCommentsEXTERNAL IMAGING 01/31/2025 12:23 PM EST from Last 3 Months Results * EXTERNAL IMAGING (01/31/2025 12:23 PM EST)Anatomical RegionLateralityModality Other Narrative Authorizing ProviderResult TypeResult StatusExternal Provider PA-CRADIOLOGYFinal Result from Last [address] [place] [address] Care Teams Team MemberRelationshipSpecialtyStart DateEnd Date John Pemberton DO [address] [place] [phone] PCP - GeneralFamily Medicine02/25/16 Reshma Kim, JAYNA Registered NurseReproductive Endocrinology04/26/18 John Pemberton DO [address] [place] [phone] NI Referring TeamFamily Medicine11/16/24
--- OUTSIDE RECORDS SUMMARY | 2025-02-07 16:56 | XMS_ITS | Clinical Summary ---
Author Organization [facility] Address [id number] [address] [place] [address] Care Team Providers Care Warp Doffer Name Role Phone John Pemberton DO Primary Care Provider [phone] Allergies Active AllergyReactionsCriticalityNoted DateCommentsAzithromycinRashLow 05/21/20161631GzgkjdmsYrkzhfgx25/31/6546KtbzntbawmuKluuy96/31/2017ErythromycinRash Low05/21/20167011Wtpzhhwofns73/31/2017 Other reaction(s): Other: See Comments QT prolongation UgiuqwttrKtwhf25/28/7627YrbpzhcaeiLmxiSuw78/31/2017SulfacetamideRashLow 05/21/2016 Medications MedicationSigDispense QuantityRefillsLast FilledStart DateEnd DateStatus [...] CAPSULE BY MOUTH ONE TIME A DAY WTJWQLOZ70/24/2020Active progesterone (PROMETRIUM) 200 mg capsule Take 400 [...] have six or more drinks on one occasion?Ditepc2608/10/2019ChildcareAnswerDate Recorded WieqbblgfYscnctw31/10/2019EmploymentAnswerDate RecordedEmploymentUnknown 07/31/2018Purpose - LifeAnswerDate RecordedPurpose and direction in lifeUnknown 1CommentsNoSex and Gender InformationValueDate RecordedSex Assigned at UvvxnEvsuzk31/18/2020 9:29 PM EDTLegal DruLvxvtv23/04/2015 2:10 PM EDTGender AqdfnxehGpimcz71/18/2020 9:29 PM EDTSexual OrientationStraight 08/09/2019 9:29 PM EDT Last Filed Vital Signs Vital SignReadingTime TakenCommentsBlood Smoodjwq535/68008/10/2019 10:13 AM EDT Pulse--Temperature--Respiratory Rate--Oxygen Saturation--Inhaled Oxygen Concentration--Qhvdgg11.2 kg (190 lb)08/24/2019 1:51 PM SAHLxmkoh969.3 cm (5' 9 )08/10/2019 10:13 AM EDTBody Mass Index28. 10:13 AM EDT Plan of Treatment Health MaintenanceDue DateLast DoneCommentsDepression Bhbrtuclh16/27/2004Tobacco Jcqnriytr08/27/2004Adult BMI Qqnqntypr84/27/2010DTaP,Tdap and Td Vaccines (1 - Tdap)2010Pap Smear2012Influenza Drglczg7110/22/2024 Medical Devices Not on file Insurance Care Teams Team MemberRelationshipSpecialtyStart DateEnd Date John Pemberton DO [address] [address] [place] [address] PCP - GeneralFamily Uakfaaqr63/17/19
--- OUTSIDE RECORDS SUMMARY | 2025-02-07 16:57 | XMS_ITS | Clinical Summary ---
Author Organization [facility] Address [address] [place] [address] Phone Care Team Providers Care Slitter And Rewinder Name Role Phone GriceldaJohn wood William CANELA Primary Care Provider [phone] Allergies Active AllergyReactionsCriticalityNoted PligOiapiabfOnhdrkfullsIfbusyj36/22/2023 Amoxicillin-Pot KfozrngadlsToapr81/22/2742PbgssykotpnbJzxql77/22/2023efaclor Hives6948YulvalcqXcroa04/22/4333RvgwuuouzFlmgKoo41/10/2023 Other Reaction(s): rashes Dextromethorphan ZzvTcggXmh91/10/2023 Other Reaction(s): rashes DiodjijsoamNiyidbw55/22/7697PvpmqbicxiruKpuuMrs03/31/2017FluconazoleOther 05/21/2016 Other Reaction(s): Other: See Comments Other reaction(s): Other: See Comments QT prolongation QT prolongation Other reaction(s): Other: See Comments QT prolongation QT prolongation IjxljagwztsFixkQln89/10/2023 Other Reaction(s): rashes HqncpwhmnGbkqk61/28/0590HinkaevtpjClthJzl62/31/2017Penicillin QLnlrJug37/31/2017 HyuyiohuvhagjipRllkEia58/10/2023 Other Reaction(s): rashes Pseudoephedrine-ArkysyhphPbynp11/22/2023Sulfa (Sulfonamide Antibiotics)Hives 12/12/2022Sulfamethoxazole-DagtvgmszobvCxyftip36/22/2023TetracyclineHives 09/30/2022 Other Reaction(s): hives Medications MedicationSigDispense QuantityRefillsLast [...] 10:58 AM EST12/31/2024tive Active Problems ProblemNoted DateDiagnosed PxraIixbmpfsnnmk94/10/2025MI 32.0-32.9,adult 12/30/2023Never smoked uplfgop0612/30/2023nxiety and jgnqyizsvi62/22/2023 Oxujlxfaoktp73/22/6400Icdkiwssoiimv70/22/2023Female /22/2023 Neurocardiogenic pre-ihrrwtq6412/12/2022elvic floor hhheluhtawk92/22/2023elvic floor jsvfdcs2212/12/2022lass 1 obesity with body mass index (BMI) of 30.0 to 30.9 in adult12/12/20229538Dahbuiqfugl17/22/2642Lmersubmwgv74/19/2023Migraine 12/09/2022Vertigo of central wosect1012/09/2022 Encounters DateTypeDepartmentCare VnghAfxmtnqiurg90/10/2025 2:30 PM ESTOffice Visit at [facility] [address] [place] [phone] Ariel Owens MD Neurocardiogenic pre-syncope (Primary Dx); Hypotension, unspecified hypotension type; Palpitations; BMI 32.0-32.9,adult; Never smoked tobacco; Obesity, Class I, BMI 30-34.9; Anxiety disorder, unspecified type Discharge Disposition: Home12/31/20241745Xzetzz98/07/2025Results Follow-Up at [facility] [facility] [address] [place] [phone] Ariel Owens MD Holter Or Event Cardiac Imtkxyq3112/26/2024 8:00 AM ESTAncillary Procedure at [facility] [address] [place] [phone] Chest pressure; Palpitations Discharge Disposition: Home12/26/20240765Ujajwa45/25/2025Scanned Document [facility] [address] [place] [phone] Scanning, Generic Provider from Last 3 Months Immunizations ImmunizationAdministration DatesNext DueTdap vaccine, age 7 year and older (BOOSTRIX, ADACEL)05/19/2021 Family History Medical HistoryRelationNameCommentsDiabetesOther 1Colon cancerOther 2Transient ischemic attackOther 2cabgOther 2RelationNameStatusCommentsOther 1Grandparent Other 2Grandmother Social History Tobacco UseTypesPacks/DayYears UsedDateSmoking Tobacco: NeverSmokeless Tobacco: NeverAlcohol UseStandard Drinks/WeekCommentsNever0 (1 standard drink = 0.6 oz pure alcohol)CommentsUnknownSex and Gender InformationValueDate Recorded Sex Assigned at BirthNot on fileLegal UqqNomyzm80/25/2022 1:39 PM ESTGender IdentityNot on fileSexual OrientationNot on file Last Filed Vital Signs Vital SignReadingTime TakenCommentsBlood Nudwpoaz720/6412/31/2024 2:35 PM EST Lkwhv810512/31/2024 2:35 PM ESTTemperature--Respiratory Rate--Oxygen Saturation-- Inhaled Oxygen Concentration--Srihot12.3 kg (219 lb)12/31/2024 2:35 PM ESTHeight 175.3 cm (5' 9 )12/31/2024 2:35 PM ESTBody Mass Index32.34103/02/2024 2:35 PM EST Plan of Treatment DateTypeDepartmentCare Team (Latest Contact Info)Mqzcjhrxvjy96/11/2026 3:40 PM ESTOffice Visit at [facility] [address] [place] [phone] Ariel Owens MD [address] [facility] [address] [place] [address] Health MaintenanceDue DateLast DoneCommentsHIV Rxwedfnke36/27/1992Lipid Panel 1991MMR Vaccines (1 of 1 - Standard series)1992Hepatitis C Screening 2009Hepatitis B Vaccines (1 of 3 - 19+ 3-dose series)2010Cervical Cancer Bdnincynq95/27/2013HPV/Fmgvux6703/19/2012Pap Smear2012HPV Vaccines (1 - 3-dose standard series)2018Influenza Vaccine (#1)2024early Adult Glfssljm09/, 09/30/2022, 3COVID-19 Vaccine (1 - 2024- season)2024DTaP/Tdap/Td Vaccines (2 - Td or Tdap)/ [...] Procedure NamePriorityDate/TimeAssociated DiagnosisCommentsHOLTER MONITOR 24-48 HOURS - SIGNAL HELPER, ANALYZED, AND PHYSICIAN RCOGUvqjxaz97/05/2025 8:23 AM EST Chest pressure Palpitations from Last 3 Months Results * HOLTER MONITOR 24-48 HOURS - SIGNAL HELPER, ANALYZED, AND PHYSICIAN READ (12/26/2024 8:23 AM [...] cardiac arrhythmias Authorizing ProviderResult TypeResult StatusAriel Owens [facility] [place] [facility] PROCEDURESFinal ResultPerforming OrganizationAddressCity/State/ZIP Code Phone Number [facility] from Last 3 Months Insurance Care Teams Team MemberRelationshipSpecialtyStart DateEnd Date John Pemberton DO [address] [place] [address] PCP - GeneralFamily Ephmbqpp20/5/25
--- OUTSIDE RECORDS SUMMARY | 2025-02-07 16:57 | XMS_ITS | Encounter Summary ---
Author Organization [facility] Address [address] [place] [address] Care Team Providers Care Net Mvc Developer Name Role Phone John Pemberton MD Primary Care Provider [phone] Encounter Details DateTypeDepartmentCare Team (Latest Contact Info)Gnumqruxrqj30/06/2025Clinisync Result Encounter [facility] Unsolicited Merari Vargas PA [address] [place] [address] [address], [place] [id number] Social History Tobacco UseTypesPacks/DayYears UsedDateSmoking Tobacco: NeverSmokeless Tobacco: NeverAlcohol UseStandard Drinks/WeekCommentsNot Currently0 (1 standard drink = 0.6 oz pure alcohol)pt reports no caffiene intakeEducationAnswerDate Recorded What is the highest level of school you have completed or the highest degree you have received?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, OFFICE CORRESPONDENT, KIKO)09/29/2022 CommentsNoSex and Gender InformationValueDate RecordedSex Assigned at BirthNot on fileLegal OoaTcfajv21/15/2023 7:21 PM EDTGender IdentityNot on file Sexual OrientationNot on fileOccupationIndustryJob Start DateJob End DateNot on fileNot on fileNot on fileNot on filedocumented as of this encounter Plan of Treatment DateTypeDepartmentCare Team (Latest Contact Info)Arrjpypceiu08/19/2025 3:30 PM ESTAncillary Procedure [facility] [address] [place] [phone] 02/12/2025 10:00 AM ESTOffice Visit [facility] [address] [phone] Ruddy Mejia DO [address] [place] [address] 02/25/2025 3:20 PM ESTOffice Visit [facility] [address] [place] [address] Neha Sanchez PA [address] [place] [address] documented as of this encounter Goals GoalPatient Goal TypeAssociated ProblemsRecent ProgressPatient-Stated?Author Reminders Care PlanOB RemindersNoPurvi Davis, MAdocumented as of this encounter Procedures Procedure NamePriorityDate/TimeAssociated DiagnosisCommentsTBH PROLACTINRoutine 01/26/2025 10:19 AM EST TBH PREG QUANT JCFHwddftj87/06/2025 10:19 AM EST MLR HEMOGLOBIN E9RAofvqeu12/06/2025 10:19 AM EST ALL THYROXINE (T4) IYTSFbdeyws89/06/2025 10:19 AM EST ALL THYROID STIM NHPIIMPRrfiino21/06/2025 10:19 AM EST ALL LUTEINIZING VFNATASHaitgrq57/06/2025 10:19 AM EST ALL FOLLICLE STIMULATING EXIRQJMIaxjzks25/06/2025 10:19 AM EST ALL DHEA SRKGQMHKaopcde64/06/2025 10:19 AM EST ALL UCTMYIEABMXUOPRDYCCEKGLalwhho02/06/2025 10:19 AM EST ALL CBC WITH AUTO ZJXXOjhnnip41/06/2025 10:19 AM EST ALL ANTI-MULLERIAN FCAXPQQYmncxvj75/06/2025 10:19 AM EST documented in this encounter Results * ALL DEHYDROEPIANDROSTERONE (01/26/2025 10:19 AM EST)ComponentValueRef Range Test MethodAnalysis TimePerformed AtPathologist SignatureDHEA, [id number] - 701 ng/dLTBHComment: This test was developed and its performance characteristics determined by [employer]. It has not been cleared or approved by the Food and Drug Administration. Performed at: ?? - Lab[address] ??[id number] Nurse'S Companion: Merlyn Sanders MD, Phone: ??[phone] Specimen (Source)Anatomical Location / LateralityCollection Method / Volume Collection TimeReceived Time01/26/2025 10:19 AM EST01/26/2025 10:47 AM EST Narrative [facility] - 02/01/2025 5:07 AM EST Authorizing ProviderResult TypeResult StatusAmy Nome PACLINISYNCFinal Result Performing OrganizationAddressCity/State/ZIP CodePhone Number [facility] * ALL ANTI-MULLERIAN HORMONE (01/26/2025 10:19 AM EST)ComponentValueRef Range Test MethodAnalysis TimePerformed AtPathologist SignatureANTI-MULLERIAN HORMONE (AMH)0.206. ng/mLTBHComment: For assays employing antibodies, the possibility exists for interference by heterophile antibodies in the samples.1 1.Kasandra Mukherjee ??Interferences in Immunoassays - still a threat. Clin. Chem. 2000; 46: 6381-2815. This test was developed and its performance characteristics determined by [facility]. It has not been cleared or approved by the Food and Drug Administration. Reference Range: Females 31 - 35y: 0.66 - 8.75 Median ??3.00 AMH concentrations of >= 1.06 ng/mL is correlated with a better response to ovarian stimulation, produced more retrievable oocytes and higher odds of live according to Hossein et al. ??Fertility and Sterility. 2010: 94:3718-6551. ??The current AMH test method correlates with [...] exclude an AMH-secreting ovarian tumor. Performed at: ??[facility] [address] [place] [address] ??[id number] Nurse'S Companion: Claudia Negron MD, Phone: ??[phone] Specimen (Source)Anatomical Location / LateralityCollection Method / Volume Collection TimeReceived Time01/26/2025 10:19 AM EST01/26/2025 10:47 AM EST Narrative [facility] - 02/01/2025 4:07 AM EST Authorizing ProviderResult TypeResult StatusAmy Sam PACLINISYNCFinal Result Performing OrganizationAddressCity/State/[facility] CodePhone Number [facility] * TBH PROLACTIN (01/26/2025 10:19 AM EST)ComponentValueRef RangeTest Method Analysis TimePerformed AtPathologist SignaturePROLACTIN9.64.8 - 33.4 ng/mLTBH Comment: Performed at: ?? - [facility] ??[id number] Nurse'S Companion: Isaiah Fitzpatrick PhD, Phone: ??[phone] Specimen (Source)Anatomical Location / LateralityCollection Method / Volume Collection TimeReceived Time01/26/2025 10:19 AM EST01/26/2025 10:47 AM EST Narrative [facility] - 01/27/2025 7:07 AM EST Authorizing ProviderResult TypeResult StatusAmy Sam PACLINISYNCFinal Result Performing OrganizationAddressCity/State/ZIP CodePhone Number [facility] * ALL FOLLICLE STIMULATING HORMONE (01/26/2025 10:19 AM EST)ComponentValueRef RangeTest MethodAnalysis TimePerformed AtPathologist WaovnyymlMKR73.5. mIU/mL TBHComment: ? Adult Female ? Range ?Follicular phase ?3.5 - ??12.5 ?Ovulation phase ? 4.7 - ??21.5 ?Luteal phase ?1.7 - ?? 7.7 ?Postmenopausal ? 25.8 - 134.8 Specimen (Source)Anatomical Location / LateralityCollection Method / Volume Collection TimeReceived Time01/26/2025 10:19 AM EST01/26/2025 10:47 AM EST Narrative [facility] - 01/27/2025 7:07 AM EST Authorizing ProviderResult TypeResult StatusAmy Nome PACLINISYNCFinal Result Performing OrganizationAddressCity/State/[facility] [place] CodePhone Number [facility] * ALL LUTEINIZING [...] PACLINISYNCFinal Result Performing OrganizationAddressCity/State/ZIP CodePhone Number [facility] TB * ALL DHEA SULFATE (01/26/2025 10:19 AM EST)ComponentValueRef RangeTest Method Analysis TimePerformed AtPathologist SignatureDHEA-AGNLMLR403.084.8 - 378.0 ug/dLTBHSpecimen (Source)Anatomical Location / LateralityCollection Method / VolumeCollection TimeReceived Time01/26/2025 10:19 AM EST01/26/2025 10:47 AM EST Narrative [facility] - 01/27/2025 7:07 AM EST Authorizing ProviderResult TypeResult StatusAmy Sam PACLINISYNCFinal Result Performing OrganizationAddressCity/State/ZIP CodePhone Number [facility] TB * MLR HEMOGLOBIN A1C (01/26/2025 10:19 AM EST)ComponentValueRef RangeTest Method Analysis TimePerformed AtPathologist SignatureGLYCOHEMOGLOBIN A1C5.34.5 - 6.2 %TBHComment: ADA RECOMMENDED LIMIT 4.0 - 6.0 ADA THERAPEUTIC TARGET < 7.0 ACTION SUGGESTED > 7.0 ESTIMATED AVERAGE KDXCNNT164cz/dLTBHSpecimen (Source)Anatomical Location / LateralityCollection Method / VolumeCollection [...] Sam PACLINISYNCFinal Result Performing OrganizationAddressCity/State/ZIP CodePhone Number [facility] * ALL THYROID STIM HORMONE (01/26/2025 10:19 AM EST)ComponentValueRef RangeTest MethodAnalysis TimePerformed AtPathologist SignatureTHYROID STIMULATING HORMONE1.9460.358 - 3.740 uIU/mLTBHSpecimen (Source)Anatomical Location / LateralityCollection Method / VolumeCollection TimeReceived Time01/26/2025 10:19 AM EST01/26/2025 10:47 AM EST Narrative [facility] - 01/26/2025 11:34 AM EST Authorizing ProviderResult TypeResult StatusAmy Sam PACLINISYNCFinal Result Performing OrganizationAddressCity/State/ZIP CodePhone Number [facility] * ALL THYROXINE (T4) FREE (01/26/2025 10:19 AM EST)ComponentValueRef RangeTest MethodAnalysis TimePerformed AtPathologist SignatureFREE T40.950.76 - 1.46 ng/dLTBHSpecimen (Source)Anatomical Location / LateralityCollection Method / VolumeCollection TimeReceived Time01/26/2025 10:19 AM EST01/26/2025 10:47 AM EST Narrative [facility] - 01/26/2025 11:26 AM EST Authorizing ProviderResult TypeResult StatusAmy Sam PACLINISYNCFinal Result Performing OrganizationAddressCity/State/ZIP CodePhone Number [facility] * ALL CBC WITH AUTO DIFF (01/26/2025 10:19 AM EST)ComponentValueRef RangeTest MethodAnalysis TimePerformed AtPathologist SignatureTBH WBC6.34.0 - 11.0 10 3/uLTBHTBH RBC4.624.20 - 5.40 10 6/uLTBHTBH HGB13.612.0 - 16.0 g/dLTBHTBH HCT 42.236.0 - 48.0 %TBHTBH MCV91.381.0 - 99.0 fLTBHTBH MCH29.426.7 - 34.0 pgTBH TBH MCHC32.229.9 - 35.2 g/dLTBHTBH RDW11.911.0 - 15.0 %TBHTBH [id number] - 450 10 3/uLTBHTBH MPV9.69.5 - 13.5 [...] Method / VolumeCollection TimeReceived Time01/26/2025 10:19 AM EST12/07/2024 10:47 AM EST Narrative [facility] - 01/26/2025 11:01 AM EST Authorizing ProviderResult TypeResult StatusAmy Nome PACLINISYNCFinal Result Performing OrganizationAddressCity/State/ZIP CodePhone Number [facility] documented in this encounter Visit Diagnoses Not on filedocumented in this encounter Additional Health Concerns Active ProblemsNoted DateDiagnosed DateOB Afevoeced68/16/2025 documented as of this encounter Care Teams Team MemberRelationshipSpecialtyStart DateEnd Date John Pemberton MD [address] [place], [place] [phone] PCP - GeneralFamily Medicine09/30/22documented as of this encounter
== END 2025-02-07 16:54 | disposition home or self-care (01) ==
LOC: US 16:53
PROVIDERS: PCP Family Medicine; Visit Provider Obstetrics & Gynecology
DX: E28.2 Polycystic ovarian syndrome (principal)
CPT/HCPCS: 76830; 76856